=== PATIENT | female | born 1965 | race Caucasian/White ===

== ENCOUNTER 2016-11-07 08:11 | Inpatient (IN) | payer MEDICARE ==
[2016-11-07] MEDS ORDERED: Sodium Chloride 0.9% 1000 ML 1,000 ML IV STA (08:23)
[2016-11-07 08:36] LABS: BASOPHIL % 0.5 % (0.0-0.4); Granulocytes % 59.5 % (36.0-66.0); Lymphocytes % 27.1 % (24.0-44.0); Mean Cell Volume 88.6 fl (78-100); Mean Corpuscular Hemoglobin 29.2 pg (26-32); Mean Platelet Volume 9.4 fl (6-9.5); Monocytes % 8.9 % (0.0-12.0); Platelet Count 311 K/mm3 (150-450); Red Blood Count 4.72 M/mm3 (4.1-5.4); Red Cell Distribution Width 15.7 % (11.5-14.0); White Blood Count 7.4 K/mm3 (4.0-10.5)
[2016-11-07] MEDS ORDERED: Hydromorphone 1 mg/ml Ampule IV ONE ×2 (08:39→12:10)
[2016-11-07] MEDS ORDERED: Lactated Ringers 1,000 ML IV ONE (08:39)
[2016-11-07] MEDS ORDERED: BENADRYL 50 MG/ML IV ONE (08:39)
--- NOTE | 2016-11-07 08:54 | ERPHSYRPT ---
- History of Present Illness Time Seen by Provider: 11/07/16 08:23 Source: patient, EMS Patient Subjective Stated Complaint: pt arrived per amb for abd pain since friday, and states her mag levels where low,she has been getting mag riders,and fluids and kcl riders, vomited today Triage Nursing Assessment: pt alert, hyperventilating, abd soft, co pain to left side, chest clear, abd has colostomy and surapubic cath in place from a surgery that nicked her colon 4 years ago Physician History: CC: general weakness hX; 51 y/o patient of Dr Haji. She has hx of crohns disease, ostomy, suprapubic catheter. She has hx of electrolyte imbalance and takes infusions of fluids, K, Mag. She has recently been worse. She had abnl labs and has referrals to specialists. She had continued chronic abd pain. She has general weakness, muscle cramps and could not walk this AM due to weakness. Friend did not think she could get her to the car so called 911. No fever or chills. Allergies/Adverse Reactions: oxybutynin Allergy (Severe, Verified 11/07/16 08:24) pharyngeal swelling ampicillin Allergy (Mild, Verified 11/07/16 08:24) hives duloxetine [From Cymbalta] Allergy (Mild, Verified 11/07/16 08:24) nausea erythromycin base [Erythromycin Base] Allergy (Mild, Verified 11/07/16 08:24) Hives Home Medications: Hydrocodone/APAP 10/325 mg [[place] 10/325 MG Tablet] 1 tab PO 0500,1200, 1900 PRN 08/26/14 [History] Diphenoxylate HCl/Atropine [Lomotil] 2 udtab PO 0500,1200,1900 PRN [History] Furosemide 40 mg [Lasix 40 MG] 20 mg PO BID 11/15/15 [History] Paroxetine HCl [Paxil Cr] 25 mg PO 1200 11/15/15 [History] Paroxetine HCl [Paxil Cr] 37.5 mg PO 0500 11/15/15 [History] Diazepam [Valium] 10 mg PO TID 06/17/16 [History] Doxylamine Succinate [Unisom] 25 mg PO HS 06/17/16 [History] Promethazine HCl 25 mg [Phenergan 25 mg] 25 mg PO Q6HPRN PRN 06/17/16 [ History] Albuterol Sulfate [Ventolin Hfa] 90 mcg IH QID 08/06/16 [History] Cetirizine HCl [Zyrtec] 10 mg PO DAILY 08/06/16 [History] Fluticasone Propionate [Flovent Hfa] 110 mcg IH BID 08/06/16 [History] Spironolactone 200 mg PO DAILY 08/27/16 [History] Opium/Belladonna Alkaloids [Belladonna-Opium 16.2-30 Supp] 1 each RC DAILY 09/10 [History] Magnesium Oxide/Mag Aa Chelate [vh-Defu-Nrztxrm Tablet] 1 tab PO BID 10/21/16 [ History] Solifenacin Succinate [Vesicare] 5 mg DAILY 11/07/16 [History] Spironolactone 25 mg [Aldactone 25 MG] 25 mg DAILY 11/07/16 [History] Sulfamethoxazole/Trimethoprim [Bactrim Ds Tablet] 1 ea DAILY 11/07/16 [History] Hx Tetanus, Diphtheria Vaccination/Date Given: Yes (up to date) Hx Influenza Vaccination/Date Given: Yes Hx Pneumococcal Vaccination/Date Given: Yes - Review of Systems Constitutional: Fatigue, Malaise, Weakness, No Fever, No Chills Eyes: No Symptoms Ears, Nose, & Throat: No Symptoms Respiratory: No Cough, No Dyspnea Cardiac: No Chest Pain Abdominal/Gastrointestinal: Abdominal Pain (chronic), Nausea, Vomiting Genitourinary Symptoms: No Symptoms (suprapubic) Skin: No Rash Neurological: No Dizziness, No Focal Weakness, No Headache, No Parasthesia All Other Systems: Reviewed and Negative - Past Medical History Pertinent Past Medical History: Yes Neurological History: Migraines ENT History: No Pertinent History Cardiac History: No Pertinent History Respiratory History: No Pertinent History Endocrine Medical History: No Pertinent History Musculoskeletal History: No Pertinent History GI Medical History: Colitis, Hepatitis, Other History: Other Psycho-Social History: Anxiety, Depression Female Reproductive Disorders: No Pertinent History Other Medical History: short gut syndrome,chronic diarrhea,small bowel bacterial overgrowth. hx bowel obstruction 04/03 and others stated in the past - Past Surgical History Past Surgical History: Yes Neuro Surgical History: No Pertinent History Cardiac: No Pertinent History Respiratory: No Pertinent History Gastrointestinal: Colon Resection, Other Genitourinary: Other Musculoskeletal: No Pertinent History Female Surgical History: Hysterectomy Other Surgical History: 100cm small bowel removal and resection and colon and large bowel removed, bladder surgen with suprapubic catheter placed. stent in rt ureter ,bladder revision with larger stent - Social History Smoking Status: Current every day smoker How long have you smoked: 20 Exposure to second hand smoke: Yes Drug Use: none Patient Lives Alone: No (lives with fiance) - Female History Hx Last Menstrual Period: post Hx Now: No - Nursing Vital Signs Nursing Vital Signs: Initial Vital Signs Temperature 97.7 F Temperature Source Oral Pulse Rate 88 Respiratory Rate 18 Blood Pressure [Right Arm] 100/50 Pain Intensity 7 - Physical Exam General Appearance: alert Eye Exam: PERRL/EOMI, No scleral icterus Ears, Nose, Throat Exam: normal ENT inspection, dry mucous membranes Neck Exam: normal inspection, supple Respiratory Exam: normal breath sounds Cardiovascular Exam: regular rate/rhythm Gastrointestinal/Abdomen Exam: soft, other (diffuse discomfort, functioning ostomy, suprapubic cath, scars) Extremity Exam: normal inspection, normal range of motion, No calf tenderness, No pedal edema Neurologic Exam: alert, oriented x 3, cooperative, sensation nml, No motor deficits Skin Exam: warm, dry, No rash SpO2 Interpretation: normal SpO2: 97 Oxygen Delivery: Room Air - Course Nursing assessment & vital signs reviewed: Yes EKG Interpreted by Me: RATE (98), Sinus Tach, NORMAL AXIS, NORMAL INTERVALS ( QTc 432 QRS 340) Ordered Tests: Active Orders 24 hr Category Date Time Status Cath for Specimen-Straight STAT Care 11/07/16 08:23 Active EKG-ER Only STAT Care 11/07/16 08:40 Active IV Insertion STAT Care 11/07/16 08:23 Active GALLBLADDER [US] Stat Exams 11/07/16 09:11 Completed OBSTR/ACUTE ABDOMEN SERIES Stat Exams 11/07/16 08:57 Completed CBC W DIFF Stat Lab 11/07/16 08:30 Completed CK-Creatinine Phosphokinase Stat Lab 11/07/16 08:30 Completed CMP Stat Lab 11/07/16 08:30 Completed CULTURE,URINE Stat Lab 11/07/16 08:23 Ordered LIPASE Stat Lab 11/07/16 08:30 Completed Lactic Acid Urgent Lab 11/07/16 08:23 Completed MAGNESIUM Stat Lab 11/07/16 08:39 Completed UA W/ MICROSCOPIC Stat Lab 11/07/16 08:45 Completed Medication Summary Discontinued Medications Generic Name Dose Route Start Last Admin Trade Name Freq PRN Reason Stop Dose Admin Diphenhydramine HCl 25 mg 11/07/16 08:39 11/07/16 09:19 Benadryl 50 Mg/Ml IV 11/07/16 08:40 25 mg STAT ONE Administration Diphenhydramine HCl Confirm 11/07/16 09:15 Benadryl 50 Mg/Ml Administered 11/07/16 09:16 Dose 50 mg .ROUTE .STK-MED ONE Hydromorphone HCl 1 mg 11/07/16 08:39 11/07/16 09:20 Hydromorphone 1 Mg/Ml Ampule IV 11/07/16 08:40 1 mg STAT ONE Administration Hydromorphone HCl Confirm 11/07/16 09:16 Hydromorphone 1 Mg/Ml Ampule Administered 11/07/16 09:17 Dose 1 mg .ROUTE .STK-MED ONE Hydromorphone HCl 1 mg 11/07/16 12:10 Hydromorphone 1 Mg/Ml Ampule IV 11/07/16 12:11 STAT ONE Sodium Chloride 1,000 mls @ 999 mls/hr 11/07/16 08:23 11/07/16 09:19 Sodium Chloride 0.9% 1000 Ml IV 11/07/16 09:23 999 mls/hr .Q1H1M STA Administration Lactated Ringer's 1,000 mls @ 999 mls/hr 11/07/16 08:39 11/07/16 09:20 Lactated Ringers IV 11/07/16 09:39 999 mls/hr .Q1H1M ONE Administration Sodium Chloride Confirm 11/07/16 09:16 Sodium Chloride 0.9% 1000 Ml Administered 11/07/16 09:17 Dose 1,000 mls @ ud .ROUTE .STK-MED ONE Lactated Ringer's Confirm 11/07/16 09:16 Lactated Ringers Administered 11/07/16 09:17 Dose 1,000 mls @ ud IV .STK-MED ONE Lab/Rad Data: Laboratory Result Diagrams 11/07/16 08:30 11/07/16 08:30 Laboratory Results 11/07/16 11/07/16 11/07/16 Range/Units 08:45 08:39 08:30 WBC (4.0-10.5) K/mm3 RBC (4.1-5.4) M/mm3 Hgb (12.0-16.0) gm/dl Hct (35-47) % MCV (78-100) fl MCH (26-32) pg MCHC (32-36) g/dl RDW (11.5-14.0) % Plt Count (150-450) K/mm3 MPV (6-9.5) fl Gran % (36.0-66.0) % Lymphocytes % (24.0-44.0) % Monocytes % (0.0-12.0) % Eosinophils % (0.00-5.0) % Basophils % (0.0-0.4) % Basophils # (0-0.4) Sodium (136-145) mEq/L Potassium (3.5-5.1) mEq/L Chloride (98-107) mEq/L Carbon Dioxide (21-32) mEq/L Anion Gap (5-15) MEQ/L BUN (9-20) mg/dL Creatinine (0.55-1.30) mg/dl Estimated GFR ML/MIN Glucose (70-110) MG/DL Lactic Acid (0.4-2.0) Calcium (8.5-10.1) mg/dL Magnesium 1.9 (1.8-2.4) mg/dL Total Bilirubin (0.2-1.0) mg/dL AST (15-37) U/L ALT (12-78) U/L Alkaline Phosphatase (46-116) U/L Creatine Kinase 75 (26-192) U/L Serum Total Protein (6.4-8.2) gm/dL Albumin (3.4-5.0) g/dL Lipase (73-393) U/L Ur Collection Type CLEAN CATCH Urine Color YELLOW (YELLOW) Urine Appearance HAZY (CLEAR) Urine pH 5.0 (5-6) Ur Specific [place] 1.020 (1.005-1.025) Urine Protein 30 (Negative) Urine Glucose (UA) NEGATIVE (NEGATIVE) mg/dL Urine Ketones NEGATIVE (NEGATIVE) Urine Nitrite NEGATIVE (NEGATIVE) Urine Bilirubin NEGATIVE (NEGATIVE) Urine Urobilinogen 0.2 (0-1) mg/dL Urine WBC (Auto) SMALL (NEGATIVE) Urine RBC (Auto) SMALL (0-5) Gregg/ul Urine Microscopic RBC 5-10 (0-2) /HPF Urine Microscopic WBC 15-25 (0-5) /HPF Ur Epithelial Cells FEW (FEW) /HPF Urine Bacteria FEW (NEGATIVE) /HPF Hyaline Casts 2-5 (0-2) /LPF Specimen Received 11/07/16 0845 11/07/16 11/07/16 11/07/16 Range/Units 08:30 08:30 08:23 WBC 7.4 (4.0-10.5) K/mm3 RBC 4.72 (4.1-5.4) M/mm3 Hgb 13.8 (12.0-16.0) gm/dl Hct 41.8 (35-47) % MCV 88.6 (78-100) fl MCH 29.2 (26-32) pg MCHC 33.0 (32-36) g/dl RDW 15.7 H (11.5-14.0) % Plt Count 311 (150-450) K/mm3 MPV 9.4 (6-9.5) fl Gran % 59.5 (36.0-66.0) % Lymphocytes % 27.1 (24.0-44.0) % Monocytes % 8.9 (0.0-12.0) % Eosinophils % 4.0 (0.00-5.0) % Basophils % 0.5 (0.0-0.4) % Basophils # 0.04 (0-0.4) Sodium 135 L (136-145) mEq/L Potassium 4.6 (3.5-5.1) mEq/L Chloride 95 L (98-107) mEq/L Carbon Dioxide 26.5 (21-32) mEq/L Anion Gap 18.5 H (5-15) MEQ/L BUN 33 H (9-20) mg/dL Creatinine 1.92 H (0.55-1.30) mg/dl Estimated GFR 29 ML/MIN Glucose 104 (70-110) MG/DL Lactic Acid 2.2 H (0.4-2.0) Calcium 9.7 (8.5-10.1) mg/dL Magnesium (1.8-2.4) mg/dL Total Bilirubin 0.6 (0.2-1.0) mg/dL AST 91 H (15-37) U/L ALT 131 H (12-78) U/L Alkaline Phosphatase 221 H (46-116) U/L Creatine Kinase (26-192) U/L Serum Total Protein 9.2 H (6.4-8.2) gm/dL Albumin 4.3 (3.4-5.0) g/dL Lipase 411 H (73-393) U/L Ur Collection Type Urine Color (YELLOW) Urine Appearance (CLEAR) Urine pH (5-6) Ur Specific [place] (1.005-1.025) Urine Protein (Negative) Urine Glucose (UA) (NEGATIVE) mg/dL Urine Ketones (NEGATIVE) Urine Nitrite (NEGATIVE) Urine Bilirubin (NEGATIVE) Urine Urobilinogen (0-1) mg/dL Urine WBC (Auto) (NEGATIVE) Urine RBC (Auto) (0-5) Gregg/ul Urine Microscopic RBC (0-2) /HPF Urine Microscopic WBC (0-5) /HPF Ur Epithelial Cells (FEW) /HPF Urine Bacteria (NEGATIVE) /HPF Hyaline Casts (0-2) /LPF Specimen Received - Progress Progress Note: 11/07/16 10:46 AAS and RUQ sonogram unremarkable. She has been medicated. She feels too weak to walk well. Called Dr Haji and she advised pt needs GI and nephrology which are not available here and attempt transfer to [facility]. Pt agrees. 11/07/16 12:[address] Coty Carty and Dr Tin BLAKE at [facility]. They do not feel pt would benefit from transfer to [facility]. Called Dr Haji who will place in obs, IVf, and consult Dr Orourke. Discussed with : Adithya Will see patient in: hospital (observation) Counseled pt/family regarding: lab results, diagnosis, need for follow-up, rad results - Departure Time of Disposition: 12:21 Departure Disposition: Observation Clinical Impression: Dehydration, Crohns disease, Chronic abdominal pain, Generalized weakness Condition: Stable Critical Care Time: No Referrals: JOSE HAJI [Primary Care Provider] -
[2016-11-07 08:58] LABS: ALBUMIN 4.3 g/dL (3.4-5.0); ANION GAP 18.5 MEQ/L (5-15); BILIRUBIN,TOTAL 0.6 mg/dL (0.2-1.0); Carbon Dioxide 26.5 mEq/L (21-32); Potassium 4.6 mEq/L (3.5-5.1); Total Protein 9.2 gm/dL (6.4-8.2)
[2016-11-07 09:11] LABS: COMPLETE URINE MICROSCOPIC? YES; Collection Type CLEAN CATCH
[2016-11-07] MEDS ORDERED: BENADRYL 50 MG/ML ONE (09:15)
[2016-11-07 09:16] LABS: Bacteria FEW /HPF (NEGATIVE); Epithelial Cells FEW /HPF (FEW); WBC 15-25 /HPF (0-5)
[2016-11-07] MEDS ORDERED: Lactated Ringers 0 ML IV ONE (09:16)
[2016-11-07] MEDS ORDERED: Sodium Chloride 0.9% 1000 ML 1,000 ML ONE (09:16)
[2016-11-07] MEDS ORDERED: Hydromorphone 1 mg/ml Ampule ONE ×2 (09:16→12:26)
--- NOTE | 2016-11-07 09:25 | XRAY ---
Indication: Abdominal pain. Comparison: June 14, 2016. 2 views of the abdomen again nonacute and nonobstructed with cholecystectomy clips, right-sided ostomy, and a suprapubic catheter. No free air. Remaining solid organs and osseous structures unremarkable. Single PA chest demonstrates normal heart, lungs, and bony thorax with right-sided Port-A-Cath. Impression: Stable nonacute nonobstructed abdomen. Normal 1 view chest.
--- NOTE | 2016-11-07 10:04 | XRAY ---
Indication: Abdominal pain. Elevated transaminase. Cholecystectomy. Two-dimensional right upper quadrant abdominal sonogram performed. Comparison: None Gallbladder surgically absent. No suspicious mass or fluid collection in the gallbladder fossa. Common bile duct measures 7.7 mm, within normal limits. No intrahepatic biliary distention. Mild fatty echogenic liver without focal solid/cystic mass or ascites. Remaining visualized portions of the pancreas and right kidney appear sonographically normal. Right kidney measures 7.9 cm in length with normal color flow. Impression: Cholecystectomy and fatty liver in a otherwise negative right upper quadrant sonogram.
[2016-11-07] MEDS: Dextrose 5%-Lr IV Solution 1000 ML 1,000 ML IV SCH ×2 (13:10→21:31)
[2016-11-07] MEDS ORDERED: Norco 10/325 MG Tablet PO PRN (16:25)
[2016-11-07] MEDS: DILAUDID 2 MG INJECTION IV PRN ×2 (16:44→21:15)
[2016-11-07] MEDS ORDERED: MEDICATION INTERVENTION MC PRN ×2 (16:52→16:56)
[2016-11-07] MEDS ORDERED: Ventolin Hfa MDI IH SCH (17:00)
[2016-11-07] MEDS: Valium 5 MG PO SCH ×2 (18:02→23:33)
[2016-11-07] MEDS: PROVENTIL COMMON CANISTER IH SCH (19:53)
[2016-11-07] MEDS: Flovent 110 Mcg COMMON CANISTER IH SCH (19:54)
[2016-11-07] MEDS: BENADRYL 25 MG CAPSULE PO SCH (21:39)
[2016-11-07] MEDS: MAG-OX 400 PO SCH (21:39)
[2016-11-07] MEDS: Lactated Ringers 1,000 ML IV SCH (21:47)
[2016-11-07] MEDS ORDERED: DOXYLAMINE SUCCINATE 25 MG PO SCH (22:00)
[2016-11-07] MEDS ORDERED: NON-FORMULARY ITEM (Diazepam [Valium] 10 MG) PO SCH (22:00)
[2016-11-07] MEDS ORDERED: MAG AA CHELATE PO SCH (22:00)
[2016-11-07] MEDS ORDERED: FLUTICASONE PROPIONATE 110 MCG IH SCH (22:00)
[2016-11-07] MEDS ORDERED: MAGNESIUM OXIDE PO SCH (22:00)
[2016-11-08] MEDS: DILAUDID 2 MG INJECTION IV PRN ×5 (01:26→18:48)
[2016-11-08] MEDS: Lactated Ringers 1,000 ML IV SCH ×4 (02:37→18:32)
[2016-11-08] MEDS ORDERED: PAROXETINE HCL 37.5 MG PO SCH (05:00)
[2016-11-08 05:20] LABS: BASOPHIL % 0.4 % (0.0-0.4); Eosinophil % 4.3 % (0.00-5.0); Granulocytes % 47.6 % (36.0-66.0); Lymphocytes % 40.7 % (24.0-44.0); Mean Cell Volume 91.8 fl (78-100); Mean Platelet Volume 9.3 fl (6-9.5); Platelet Count 233 K/mm3 (150-450); Red Blood Count 3.52 M/mm3 (4.1-5.4); Red Cell Distribution Width 15.6 % (11.5-14.0); White Blood Count 4.9 K/mm3 (4.0-10.5)
[2016-11-08 05:24] LABS: Mean Corpuscular Hemoglobin 29.2 pg (26-32)
[2016-11-08 05:52] LABS: ALBUMIN 3.2 g/dL (3.4-5.0); ANION GAP 9.6 MEQ/L (5-15); BILIRUBIN,TOTAL 0.3 mg/dL (0.2-1.0); Carbon Dioxide 29.4 mEq/L (21-32); Potassium 4.1 mEq/L (3.5-5.1); Total Protein 6.8 gm/dL (6.4-8.2)
[2016-11-08] MEDS: Flovent 110 Mcg COMMON CANISTER IH SCH ×2 (07:00→19:18)
[2016-11-08] MEDS: PROVENTIL COMMON CANISTER IH SCH ×4 (07:00→19:18)
[2016-11-08] MEDS: Aldactone 25 MG PO SCH (08:09)
[2016-11-08] MEDS: Norco 10/325 MG Tablet PO PRN (08:10)
[2016-11-08] MEDS: MAG-OX 400 PO SCH ×2 (08:10→21:39)
[2016-11-08] MEDS: Valium 5 MG PO SCH ×3 (08:10→22:39)
[2016-11-08] MEDS: Paxil 12.5MG CR PO SCH ×2 (08:11→11:14)
[2016-11-08] MEDS: CLARITIN 10 MG PO SCH (08:11)
--- NOTE | 2016-11-08 09:08 | PCM.HP ---
History of Present Illness - Chief Complaint Chief Complaint: dehydration History of Present Illness: is a 51 year old female pt of mine from [facility] with a complicated medical history, admitted through the ER last night with weakness and decreased renal function. This morning her creatinine is decreased. She gained 6 lb overnight with her lasix being held. C/o abd distention. Regarding her medical hx, she had a colon resection with most of the small bowel removed about 2 years ago due to bowel obstruction and colitis. The bladder was damaged during a surgery and she had to have a suprapubic catheter placed (approx 1 yr ago). She was seeing GI surgeon Dr. Hinson in [place] who had been ordering twice weekly labs on her. For some reason, his office stopped following up on the labs and it came to my attention earlier this week that no one was following those. I had her come in on Friday and set her up with nephrology and GI outpatient in the [facility] (Dr. Orourke and Dr. Castle). She was started on po magnesium at a low dose (a high po dose gave her increased output through the ostomy). She became weak and had some vomiting yesterday so came to ER for evaluation. - Review of Systems Constitutional: No Fever Abdominal/Gastrointestinal: Abdominal Pain, Vomiting, Diarrhea, Appetite Changes Genitourinary Symptoms: Other (frequent utis and pain at catheter site) Psychological: Anxiety All Other Systems: Reviewed and Negative Medications & Allergies Home Medications: Home Medication List Hydrocodone/APAP 10/325 mg [[place] 10/325 MG Tablet] 1 tab PO 0500,1200, 1900 PRN 08/26/14 [History Confirmed 11/07/16] Diphenoxylate HCl/Atropine [Lomotil] 2 udtab PO 0500,1200,1900 PRN [History Confirmed 11/07/16] Furosemide 40 mg [Lasix 40 MG] 20 mg PO BID 11/15/15 [History Confirmed ] Paroxetine HCl [Paxil Cr] 25 mg PO 1200 11/15/15 [History Confirmed 11/07/16] Paroxetine HCl [Paxil Cr] 37.5 mg PO 0500 11/15/15 [History Confirmed 11/07/16] Diazepam [Valium] 10 mg PO TID 06/17/16 [History Confirmed 11/07/16] Doxylamine Succinate [Unisom] 25 mg PO HS 06/17/16 [History Confirmed 11/07/16] Promethazine HCl 25 mg [Phenergan 25 mg] 25 mg PO Q6HPRN PRN 06/17/16 [ History Confirmed 11/07/16] Albuterol Sulfate [Ventolin Hfa] 90 mcg IH QID 08/06/16 [History Confirmed 11/07] Cetirizine HCl [Zyrtec] 10 mg PO DAILY 08/06/16 [History Confirmed 11/07/16] Fluticasone Propionate [Flovent Hfa] 110 mcg IH BID 08/06/16 [History Confirmed 11/07/16] Spironolactone 200 mg PO DAILY 08/27/16 [History Confirmed 11/07/16] Opium/Belladonna Alkaloids [Belladonna-Opium 16.2-30 Supp] 1 each RC DAILY 09/10 [History Confirmed 11/07/16] Magnesium Oxide/Mag Aa Chelate [zn-Xtyy-Wyigdly Tablet] 1 tab PO BID 10/21/16 [ History Confirmed 11/07/16] Phentermine HCl [Adipex-P] 37.5 mg PO DAILY 11/07/16 [History Confirmed 11/07/16 ] Solifenacin Succinate [Vesicare] 5 mg DAILY 11/07/16 [History Confirmed 11/07/16 ] Spironolactone 25 mg [Aldactone 25 MG] 25 mg DAILY 11/07/16 [History Confirmed 11/07/16] Sulfamethoxazole/Trimethoprim [Bactrim Ds Tablet] 1 ea DAILY 11/07/16 [History Confirmed 11/07/16] Allergies/Adverse Reactions: Allergies Allergy/AdvReac Type Severity Reaction Status Date / Time oxybutynin Allergy Severe Verified 11/07/16 08:24 ampicillin Allergy Mild Verified 11/07/16 08:24 duloxetine [From Cymbalta] Allergy Mild Verified 11/07/16 08:24 erythromycin base Allergy Mild Verified 11/07/16 08:24 [Erythromycin Base] - Past Medical History Past Medical History: Yes Neurological History: Migraines ENT History: No Pertinent History Cardiac History: No Pertinent History Respiratory History: No Pertinent History Endocrine Medical History: No Pertinent History Musculoskelatal History: No Pertinent History GI Medical History: Colitis, Hepatitis, Other History: Other Pyscho-Social History: Anxiety, Depression Reproductive Disorders: No Pertinent History Comment: short gut syndrome,chronic diarrhea,small bowel bacterial overgrowth. hx bowel obstruction 04/03 and others stated in the past. stage 2 kidney disease - Female History Hx Last Menstrual Period: post Are you now?: No - Past Surgical History Past Surgical History: Yes Neuro Surgical History: No Pertinent History Cardiac History: No Pertinent History Respiratory Surgery: No Pertinent History GI Surgical History: Colon Resection, Other Genitourinary Surgical Hx: Other Musculskeletal Surgical Hx: No Pertinent History Female Surgical History: Hysterectomy Other Surgical History: 100cm small bowel removal and resection and colon and large bowel removed, bladder surgen with suprapubic catheter placed. stent in rt ureter ,bladder revision with larger stent - Social History Smoking Status: Current every day smoker How long have you smoked: 20 Exposure to second hand smoke: Yes Alcohol: None Drug Use: none - Physical Exam Vital Signs: Vital Signs - 24 hr Temp Pulse Resp BP Pulse Ox 11/08/16 07:07 97.8 F 70 20 98/52 97 11/08/16 07:03 86 18 97 11/08/16 04:00 98.0 F 79 15 91/55 95 11/07/16 23:54 98.0 F 91 H 16 110/59 96 11/07/16 21:16 92 H 20 95 11/07/16 20:00 97.8 F 96 H 18 128/75 94 L 11/07/16 17:05 97.6 F 92 H 18 106/70 96 11/07/16 14:01 97.8 F 100 H 20 107/76 98 11/07/16 13:04 97.8 F 100 H 20 107/76 98 11/07/16 12:21 97 11/07/16 11:50 88 18 100/50 97 11/07/16 11:40 88 18 100/65 98 11/07/16 10:50 91 H 18 104/60 97 11/07/16 10:40 97 H 18 104/60 97 11/07/16 09:52 95 H 16 96/68 93 L General Appearance: no apparent distress Neurologic Exam: alert, oriented x 3, cooperative Eye Exam: eyes nml inspection Neck Exam: normal inspection, non-tender, No lymphadenopathy Respiratory Exam: normal breath sounds, lungs clear, No crackles/rales, No rhonchi, No wheezing Cardiovascular Exam: regular rate/rhythm, normal heart sounds, No murmur Gastrointestinal/Abdomen Exam: soft, other (ostomy bag midline lower abd, with suprapubic catheter inferior to this. some yellow exudate but no erythema at catheter site.) Back Exam: normal inspection Extremity Exam: pedal edema (trace LE edema bilat), swelling (generalized UE bilat) Skin Exam: normal color, warm, dry Results - Labs Lab/Micro Results: Lab Results-Last 24 Hours 11/07/16 11/07/16 11/07/16 Range/Units 19:45 19:45 19:47 WBC (4.0-10.5) K/mm3 RBC (4.1-5.4) M/mm3 Hgb (12.0-16.0) gm/dl Hct (35-47) % MCV (78-100) fl MCH (26-32) pg MCHC (32-36) g/dl RDW (11.5-14.0) % Plt Count (150-450) K/mm3 MPV (6-9.5) fl Gran % (36.0-66.0) % Lymphocytes % (24.0-44.0) % Monocytes % (0.0-12.0) % Eosinophils % (0.00-5.0) % Basophils % (0.0-0.4) % Basophils # (0-0.4) Sodium (136-145) mEq/L Potassium (3.5-5.1) mEq/L Chloride (98-107) mEq/L Carbon Dioxide (21-32) mEq/L Anion Gap (5-15) MEQ/L BUN (9-20) mg/dL Creatinine (0.55-1.30) mg/dl Estimated GFR ML/MIN Glucose (70-110) MG/DL Calcium (8.5-10.1) mg/dL Total Bilirubin (0.2-1.0) mg/dL AST (15-37) U/L ALT (12-78) U/L Alkaline Phosphatase (46-116) U/L Serum Total Protein (6.4-8.2) gm/dL Albumin (3.4-5.0) g/dL Ur Random Creatinine 173.96 H (30-125) MG/DL Urine Sodium 13.8 MMOL Urine Potassium 91.6 (25-125) MM/24HR 11/08/16 11/08/16 Range/Units 05:10 05:10 WBC 4.9 (4.0-10.5) K/mm3 RBC 3.52 L (4.1-5.4) M/mm3 Hgb 10.3 L (12.0-16.0) gm/dl Hct 32.3 L (35-47) % MCV 91.8 (78-100) fl MCH 29.2 (26-32) pg MCHC 31.9 L (32-36) g/dl RDW 15.6 H (11.5-14.0) % Plt Count 233 (150-450) K/mm3 MPV 9.3 (6-9.5) fl Gran % 47.6 (36.0-66.0) % Lymphocytes % 40.7 (24.0-44.0) % Monocytes % 7.0 (0.0-12.0) % Eosinophils % 4.3 (0.00-5.0) % Basophils % 0.4 (0.0-0.4) % Basophils # 0.02 (0-0.4) Sodium 136 (136-145) mEq/L Potassium 4.1 (3.5-5.1) mEq/L Chloride 101 (98-107) mEq/L Carbon Dioxide 29.4 (21-32) mEq/L Anion Gap 9.6 (5-15) MEQ/L BUN 22 H (9-20) mg/dL Creatinine 1.24 (0.55-1.30) mg/dl Estimated GFR 48 ML/MIN Glucose 85 (70-110) MG/DL Calcium 8.6 (8.5-10.1) mg/dL Total Bilirubin 0.3 (0.2-1.0) mg/dL AST 53 H (15-37) U/L ALT 88 H (12-78) U/L Alkaline Phosphatase 154 H (46-116) U/L Serum Total Protein 6.8 (6.4-8.2) gm/dL Albumin 3.2 L (3.4-5.0) g/dL Ur Random Creatinine (30-125) MG/DL Urine Sodium MMOL Urine Potassium (25-125) MM/24HR - Radiology Impressions Radiology Exams & Impressions: Radiology Procedures Category Date Time Status Ultrasound Kidney [KIDNEY] [US] Routine Exams 11/08/16 08:00 Ordered - Other Procedures and Tests Respiratory Therapy 11/07/16 19:00 Respiratory MDI BID Respiratory MDI QID Assessment/Plan (1) Generalized weakness Current Visit: Yes Status: Acute Assessment & Plan: persistent but with some improvement. Code(s): R53.1 - WEAKNESS (2) Chronic abdominal pain Current Visit: Yes Status: Acute Assessment & Plan: if not transferred out, will have her f/u with local GI (Dr. Castle) likely next week. Code(s): R10.9 - UNSPECIFIED ABDOMINAL PAIN; G89.29 - OTHER CHRONIC PAIN (3) Dehydration Current Visit: Yes Status: Acute Assessment & Plan: improved. Code(s): E86.0 - DEHYDRATION (4) Renal insufficiency Current Visit: No Status: Resolved Assessment & Plan: Much improved. Dr. Orourke was consulted and saw the patient last night (she was set up to see him outpatient for consult already). I will discuss with him today as he had mentioned to the patient possibility of transferring her to [place].
--- NOTE | 2016-11-08 09:30 | XRAY ---
Indication: Assess renal echogenicity. Two-dimensional renal ultrasound performed. Comparison: June 17, 2016. Both kidneys normal in reniform shape with normal color perfusion. Right kidney measures 10.0 x 3.0 x 4.1 cm and the left measures 9.3 x 3.6 x 4.1 cm. No suspicious solid/cystic renal mass or hydronephrosis. Cortical medullary differentiation preserved without cortical thinning. Images of the urinary bladder again empty with catheter balloon tip in the lumen. Impression: Stable normal renal sonogram.
[2016-11-08] MEDS ORDERED: BELLADONNA ALKALOIDS RC SCH (10:00)
[2016-11-08] MEDS ORDERED: NON-FORMULARY ITEM (Cetirizine Hcl [Zyrtec] 10 MG) PO SCH (10:00)
[2016-11-08] MEDS ORDERED: SPIRONOLACTONE 200 MG PO SCH (10:00)
[2016-11-08] MEDS ORDERED: OPIUM RC SCH (10:00)
[2016-11-08] MEDS: BACTRIM DS TABLET PO SCH (10:21)
[2016-11-08] MEDS ORDERED: PAROXETINE HCL 25 MG PO SCH (12:00)
[2016-11-08] MEDS: LYRICA 150MG PO SCH ×2 (12:11→21:39)
[2016-11-08] MEDS ORDERED: Phenergan 25 MG INJ IV PRN (14:29)
[2016-11-08] MEDS: Zofran 4 MG/2 ML VIAL IV PRN (14:53)
[2016-11-08] MEDS: Lomotil PO PRN (15:25)
[2016-11-08] MEDS ORDERED: Lasix 20 MG/2 ML IV ONE (15:30)
[2016-11-08] MEDS: BENADRYL 25 MG CAPSULE PO SCH (21:39)
[2016-11-09] MEDS: DILAUDID 2 MG INJECTION IV PRN ×5 (04:17→22:00)
[2016-11-09] MEDS: Lactated Ringers 1,000 ML IV SCH ×5 (04:20→23:29)
[2016-11-09 05:49] LABS: Carbon Dioxide 28.5 mEq/L (21-32); MAGNESIUM 1.5 mg/dL (1.8-2.4); Potassium 4.1 mEq/L (3.5-5.1)
[2016-11-09] MEDS: PROVENTIL COMMON CANISTER IH SCH ×4 (07:39→19:24)
[2016-11-09] MEDS: Flovent 110 Mcg COMMON CANISTER IH SCH ×2 (07:39→19:25)
[2016-11-09] MEDS: Zofran 4 MG/2 ML VIAL IV PRN (08:19)
[2016-11-09] MEDS: Aldactone 25 MG PO SCH (09:36)
[2016-11-09] MEDS: Lasix 40 MG PO SCH (09:38)
[2016-11-09] MEDS: BACTRIM DS TABLET PO SCH (09:38)
[2016-11-09] MEDS: MAG-OX 400 PO SCH ×2 (09:38→21:05)
[2016-11-09] MEDS: LYRICA 150MG PO SCH ×2 (09:38→21:05)
[2016-11-09] MEDS: CLARITIN 10 MG PO SCH (09:38)
[2016-11-09] MEDS: Valium 5 MG PO SCH ×3 (09:39→21:05)
[2016-11-09] MEDS: Paxil 12.5MG CR PO SCH ×2 (09:39→11:56)
--- NOTE | 2016-11-09 10:43 | PCM.NOTE ---
Date and Time: 11/09/16 1038 Subjective Assessment: Patient reports she continues to feel very swollen. She is on a bland diet so she is not getting much protein. She is tearful when talking about the swelling. She reports she continues to have output from her ostomy and she just had her suprapubic catheter changed recently. - Review of Systems Constitutional: Other (generalized swelling) Respiratory: No Symptoms Cardiac: No Symptoms Abdominal/Gastrointestinal: Abdominal Pain, No Nausea, No Vomiting Genitourinary Symptoms: No Symptoms Musculoskeletal: No Symptoms Skin: No Symptoms Psychological: Anxiety Objective Exam General Appearance: other (tearful at times, at bedside) Neurologic Exam: alert, cooperative Skin Exam: normal color, warm, dry, No rash Respiratory Exam: normal breath sounds, lungs clear, airway intact, No respiratory distress Cardiovascular Exam: regular rate/rhythm, normal heart sounds, No murmur, No friction rub, No gallop Gastrointestinal/Abdomen Exam: soft, other (ostomy in place, suprapubic catheter in place, mild distension, soft, normal bowel sounds) Extremity Exam: pedal edema, other (hands slightly swollen) OBJECTIVE DATA Vital Signs: Vital Signs - 24 hr Temp Pulse Resp BP Pulse Ox 11/09/16 07:51 98.7 F 85 17 91/53 91 L 11/09/16 07:39 81 16 96 11/09/16 04:00 98.5 F 88 14 95/54 95 11/09/16 00:00 98.7 F 76 14 89/51 93 L 11/08/16 20:00 98.1 F 85 15 94/51 96 11/08/16 19:21 82 18 97 11/08/16 16:00 98.2 F 85 19 91/50 95 11/08/16 15:33 86 16 97 11/08/16 12:00 97.7 F 85 18 98/50 95 11/08/16 10:51 88 18 97 Pain Assessment - Last Documented Pain Intensity 5 Pain Scale Used 0-10 Pain Scale Intake and Output: Intake & Output 11/07/16 11/08/16 11/09/16 11/10/16 06:59 06:59 06:59 06:59 Intake Total 1478 Output Total 3150 Balance -1672 Lab Results: Lab Results-Last 24 Hours 11/09/16 Range/Units 05:10 Sodium 139 (136-145) mEq/L Potassium 4.1 (3.5-5.1) mEq/L Chloride 104 (98-107) mEq/L Carbon Dioxide 28.5 (21-32) mEq/L Anion Gap 11.0 (5-15) MEQ/L BUN 15 (9-20) mg/dL Creatinine 1.26 (0.55-1.30) mg/dl Estimated GFR 48 ML/MIN Glucose 92 (70-110) MG/DL Calcium 8.3 L (8.5-10.1) mg/dL Magnesium 1.5 L (1.8-2.4) mg/dL Assessment/Plan (1) Acute renal failure Current Visit: Yes Status: Acute Assessment & Plan: Improved with IV fluids. (2) Chronic kidney disease (CKD) stage G3a/A1, moderately decreased glomerular filtration rate (GFR) between 45-59 mL/min/1.73 square meter and albuminuria creatinine ratio less than 30 mg/g Current Visit: Yes Status: Acute Assessment & Plan: Plan for her to follow up with the account executive software sales on Friday. Continue current IV fluid. Renal function has improved with IV fluids. Code(s): N18.3 - CHRONIC KIDNEY DISEASE, STAGE 3 (MODERATE) (3) Hypomagnesemia Current Visit: No Status: Resolved Assessment & Plan: Will give magnesium sulfate 2 G IV once and continue oral supplementation too. Code(s): E83.42 - HYPOMAGNESEMIA (4) Chronic abdominal pain Current Visit: Yes Status: Acute Assessment & Plan: Continue current treatment. Code(s): R10.9 - UNSPECIFIED ABDOMINAL PAIN; G89.29 - OTHER CHRONIC PAIN
[2016-11-09] MEDS ORDERED: Magnesium Sulfate 1 GM/2 ML VIAL IV ONE (11:00)
[2016-11-09] MEDS: Magnesium 1 Gm / 100 Ml D5W*** 100 ML IV SCH ×2 (11:07→12:20)
--- NOTE | 2016-11-09 15:12 | CONS ---
REASON FOR CONSULTATION: Acute kidney injury. HISTORY OF PRESENT ILLNESS: Ms. Woods is a 51 year-old female who was admitted to [facility] for the complaint of abdominal pain and increasing swelling. She apparently had a subtotal colectomy done at [facility] in 2014, and had an ileostomy tube placed and also had a suprapubic catheter placed. She only had 120 cm of bowel left, and ever since she has been having a large output by ostomy, and currently getting maintenance IV fluid therapy at home. She stated that her fluid therapy is being managed by the physician at the who reviews her labs and prescribes her the intravenous fluid therapy to being infused at home. She stated that prior to coming into the hospital she had not been doing infusion therapy because she was supposed to have lab work done and was advised not to have IV fluid therapy. She was found to have a creatinine of 1.9. She had some baseline CKDs stage 2, however, baseline creatinine around 1.2 with GFR around 60 to 65. She had suffered multiple episodes of CARRIE in the past and also had electrolyte abnormalities, hypokalemia and hypomagnesemia secondary to short gut syndrome. She has 1800 cc of ostomy output, was also advised to take Lomotil and Imodium to slow down the ostomy, however, she stated that she has not taken it in the past because that made her constipated and she was not able to pass the stool via the ostomy tube. She is also expressing concerns regarding fluid overload with the maintenance fluid therapy. PAST MEDICAL HISTORY: Significant for colon resection, chronic high ostomy output, hypokalemia, hypomagnesemia, CKD stage 2. Anxiety and depression. PAST SURGICAL HISTORY: Tubal ligation, hysterectomy, adhesion lysis, and colectomy. SOCIAL HISTORY: She has denied any smoking or alcohol use. FAMILY HISTORY: No significant family history of renal disease. MEDICATIONS: Home medications reviewed. ALLERGIES: As per the chart. REVIEW OF SYSTEMS: All pertinents in review of systems reviewed. Negative except as mentioned in the HPI. PHYSICAL EXAMINATION: VITAL SIGNS: Reviewed and stable. HEENT: Head is atraumatic and normocephalic. Pupils are round and equal. Extraocular muscles intact. No conjunctivae. Anicteric sclerae. Throat mucosa appears to be dry. NECK: No JVD, thyromegaly. CARDIOVASCULAR: S1, S2 normal. No murmurs, gallops or rubs. CHEST: Clear to auscultation, no apparent wheezes or crackles. ABDOMEN: A surgical scar noted in the abdomen and ostomy noted. And also suprapubic catheter with the catheter bag noted. Bowel sounds are present. Abdomen is mildly tender on palpation. EXTREMITIES: Evidence of trace edema noted on lower and upper extremities. SKIN: Skin is warm, dry and intact. No evidence of rash. NEURO: No evidence of focal neurological deficits. LABORATORY INVESTIGATIONS: Laboratory data from [facility] were reviewed. Creatinine is up to 1.9. Prior lab values also reviewed. The prior lab review had been in the range of 1.3 to 1.2. She had been getting frequent labs since August of this year. ASSESSMENT AND PLAN: Ms. Woods is a 51 year-old female with a significant past medical history of short gut syndrome, had high ostomy output, presented with abdominal pain, was found to have acute kidney injury and chronic kidney disease with a creatinine of 1.9. 1. Acute kidney injury: This is likely secondary to high ostomy output, dehydration and prerenal azotemia. I would like to obtain urine studies, urine sodium and urine creatinine to assess the true volume status. It is my suspicion that she had dehydration secondary to high ostomy output and I would like to increase the current IV fluid back to 200 cc per hour. I would also like to do a CC to see the placement. As of now her ostomy output is around 200 cc per hour, the last 6 hours output is around 1200. If the ostomy output slows down, I would like to decrease the fluid rate. I also strongly recommend giving her Lomotil and Imodium to slow down the output, and this will also help correct the electrolyte imbalance as well. 2. Hypokalemia. The potassium level is within normal range, however, she has had a history of hypokalemia, and has remained on a potassium-sparing diuretic in the past. I agree with the potassium-sparing diuretic, and will continue to monitor the potassium level closely while in the hospital. 3. Hypomagnesemia. The magnesium level has not been checked. We will check the magnesium level, continue the magnesium supplements, however, I am not sure of that she would be able to absorb. We will monitor the level and replace it as needed with IV magnesium sulfate. 4. Short gut syndrome. She has followed with physician at the [facility]. I strongly recommend that she follows with the physician over there for possibility of consideration of transplantation. 5. Chronic kidney disease stage 2 probably advancing to stage 3A disease. As of September and October her GRF had been around less than 60, and creatinine was usually in the range of 1.2 to 1.3. She probably had progression of the CKD secondary to multiple episodes of dehydration and CARRIE. 6. I thank you for this consultation. I appreciate the opportunity. Please do not hesitate to contact me if you have any questions. Please note that this consult is provided on November 07, 2016.
[2016-11-09] MEDS: BENADRYL 25 MG CAPSULE PO SCH (21:05)
[2016-11-09] MEDS: Lomotil PO PRN (21:05)
[2016-11-10 05:58] LABS: ANION GAP 9.1 MEQ/L (5-15); Carbon Dioxide 29.1 mEq/L (21-32); MAGNESIUM 1.8 mg/dL (1.8-2.4); Potassium 4.2 mEq/L (3.5-5.1)
[2016-11-10] MEDS: Norco 10/325 MG Tablet PO PRN (08:02)
[2016-11-10] MEDS: PROVENTIL COMMON CANISTER IH SCH ×4 (08:26→18:55)
[2016-11-10] MEDS: Flovent 110 Mcg COMMON CANISTER IH SCH ×2 (08:26→18:55)
[2016-11-10] MEDS: Paxil 12.5MG CR PO SCH ×2 (09:06→11:35)
[2016-11-10] MEDS: CLARITIN 10 MG PO SCH (09:07)
[2016-11-10] MEDS: Lomotil PO PRN (09:07)
[2016-11-10] MEDS: MAG-OX 400 PO SCH ×2 (09:07→22:10)
[2016-11-10] MEDS: Lasix 40 MG PO SCH (09:07)
[2016-11-10] MEDS: BACTRIM DS TABLET PO SCH (09:07)
[2016-11-10] MEDS: Valium 5 MG PO SCH ×3 (09:07→22:10)
[2016-11-10] MEDS: LYRICA 150MG PO SCH ×2 (09:08→22:11)
[2016-11-10] MEDS: Aldactone 25 MG PO SCH (09:08)
[2016-11-10] MEDS: Lactated Ringers 1,000 ML IV SCH (09:18)
[2016-11-10] MEDS: DILAUDID 2 MG INJECTION IV PRN ×4 (09:50→22:11)
--- NOTE | 2016-11-10 12:08 | PCM.NOTE ---
Date and Time: 11/10/16 1204 Subjective Assessment: She reports she continues to feel swollen. She is unsure what she should do at home tonight as far as her fluids. She reports Dr. Hinson, transplant surgeon, has told her in the past that she is not a good candidate for transplant and that he does not think she would survive this. - Review of Systems Constitutional: No Symptoms Eyes: No Symptoms Ears, Nose, & Throat: No Symptoms Respiratory: No Symptoms Cardiac: No Symptoms Abdominal/Gastrointestinal: Abdominal Pain Genitourinary Symptoms: No Symptoms Musculoskeletal: No Symptoms Skin: Other (She feels swollen) Objective Exam General Appearance: no apparent distress, alert Neurologic Exam: alert, cooperative, normal mood/affect Skin Exam: normal color, warm, dry Respiratory Exam: normal breath sounds, lungs clear, No crackles/rales, No rhonchi, No wheezing Cardiovascular Exam: regular rate/rhythm, normal heart sounds, No murmur, No friction rub, No gallop Gastrointestinal/Abdomen Exam: soft, normal bowel sounds, other (suprapubic catheter in place and ostomy in place) Extremity Exam: other (trace edema bilat) OBJECTIVE DATA Vital Signs: Vital Signs - 24 hr Temp Pulse Resp BP Pulse Ox 11/10/16 11:54 98.0 F 81 18 109/52 95 11/10/16 08:27 84 16 96 11/10/16 07:30 97.8 F 78 19 115/67 93 L 11/10/16 04:00 97.8 F 78 15 98/56 95 11/10/16 00:00 98.3 F 86 14 99/57 94 L 11/09/16 20:00 98.0 F 97 H 16 125/63 95 11/09/16 19:24 90 18 93 L 11/09/16 16:00 98.2 F 88 18 122/70 95 11/09/16 15:08 97 Pain Assessment - Last Documented Pain Intensity 7 Pain Scale Used 0-10 Pain Scale Intake and Output: Intake & Output 11/08/16 11/09/16 11/10/16 11/11/16 06:59 06:59 06:59 06:59 Intake Total 1478 4172 Output Total 3150 3015 1000 Balance -1672 1157 -1000 Weight 70.488 kg Lab Results: Lab Results-Last 24 Hours 04/09/17 Range/Units 05:15 Sodium 140 (136-145) mEq/L Potassium 4.2 (3.5-5.1) mEq/L Chloride 106 (98-107) mEq/L Carbon Dioxide 29.1 (21-32) mEq/L Anion Gap 9.1 (5-15) MEQ/L BUN 14 (9-20) mg/dL Creatinine 1.24 (0.55-1.30) mg/dl Estimated GFR 48 ML/MIN Glucose 96 (70-110) MG/DL Calcium 8.2 L (8.5-10.1) mg/dL Magnesium 1.8 (1.8-2.4) mg/dL Assessment/Plan (1) Acute renal failure Current Visit: Yes Status: Acute (2) Chronic kidney disease (CKD) stage G3a/A1, moderately decreased glomerular filtration rate (GFR) between 45-59 mL/min/1.73 square meter and albuminuria creatinine ratio less than 30 mg/g Current Visit: Yes Status: Acute Assessment & Plan: Discussed with medtronics technician decorator street and building, Dr. Leyva, today. He wants her to stay another day as her ostomy output has been high at 1950 mL over the past 24 hours. He states one of the nephrologists will see her in the hospital tomorrow. He wants to change her fluid replacement from 1 ml for 1 mL to 0.5 mL of replacement for each 1 mL of fluid. Code(s): N18.3 - CHRONIC KIDNEY DISEASE, STAGE 3 (MODERATE) (3) Chronic abdominal pain Current Visit: Yes Status: Acute Code(s): R10.9 - UNSPECIFIED ABDOMINAL PAIN ; G89.29 - OTHER CHRONIC PAIN
[2016-11-10] MEDS: BENADRYL 25 MG CAPSULE PO SCH (22:10)
[2016-11-11] MEDS: Lactated Ringers 1,000 ML IV SCH ×3 (03:24→16:31)
[2016-11-11] MEDS: DILAUDID 2 MG INJECTION IV PRN ×4 (03:47→16:51)
[2016-11-11 05:45] LABS: ANION GAP 11.1 MEQ/L (5-15); Carbon Dioxide 30.3 mEq/L (21-32); MAGNESIUM 1.5 mg/dL (1.8-2.4); Potassium 3.8 mEq/L (3.5-5.1)
[2016-11-11] MEDS: Flovent 110 Mcg COMMON CANISTER IH SCH (07:19)
[2016-11-11] MEDS: PROVENTIL COMMON CANISTER IH SCH ×3 (07:20→15:34)
--- NOTE | 2016-11-11 08:10 | PCM.NOTE ---
Date and Time: 11/11/16 0807 Subjective Assessment: She is overall feeling much better. Still bloated. Just to clarify, she has discussed a multi-organ transplant, including kidney, with Dr. Hinson; he told her if she "had to" they would consider it but he felt she would not survive the surgery. Objective Exam General Appearance: no apparent distress Neurologic Exam: alert, oriented x 3, cooperative Skin Exam: normal color, warm, dry Respiratory Exam: normal breath sounds, lungs clear, No crackles/rales Cardiovascular Exam: regular rate/rhythm, normal heart sounds, No murmur Extremity Exam: other (trace pretibial edema bilat) OBJECTIVE DATA Vital Signs: Vital Signs - 24 hr Temp Pulse Resp BP Pulse Ox 11/11/16 07:28 98.4 F 87 18 86/54 95 11/11/16 07:20 85 16 93 L 11/11/16 04:00 98.8 F 76 14 95/54 95 11/11/16 00:00 98.5 F 85 13 94/53 95 11/10/16 20:00 98.0 F 89 14 125/60 97 11/10/16 18:55 86 17 96 11/10/16 16:12 78 18 96 11/10/16 16:00 98.0 F 84 17 111/61 98 11/10/16 13:34 74 18 96 11/10/16 11:54 98.0 F 81 18 109/52 95 11/10/16 08:27 84 16 96 Pain Assessment - Last Documented Pain Intensity 6 Pain Scale Used 0-10 Pain Scale Intake and Output: Intake & Output 11/08/16 11/09/16 11/10/16 11/11/16 11:59 11:59 11:59 11:59 Intake Total 1478 4172 3376 Output Total 3150 4015 4500 Balance -1672 157 -1124 Weight 70.488 kg Lab Results: Lab Results-Last 24 Hours 11/11/16 Range/Units 04:50 Sodium 142 (136-145) mEq/L Potassium 3.8 (3.5-5.1) mEq/L Chloride 104 (98-107) mEq/L Carbon Dioxide 30.3 (21-32) mEq/L Anion Gap 11.1 (5-15) MEQ/L BUN 10 (9-20) mg/dL Creatinine 1.28 (0.55-1.30) mg/dl Estimated GFR 47 ML/MIN Glucose 99 (70-110) MG/DL Calcium 8.0 L (8.5-10.1) mg/dL Magnesium 1.5 L (1.8-2.4) mg/dL Assessment/Plan (1) Renal insufficiency Current Visit: No Status: Resolved Assessment & Plan: Improved after her first hospital day and has been fairly stable. Appreciate nephrology consult, thank you! Allocation Analyst to see pt today and we will go from there. (2) Generalized weakness Current Visit: Yes Status: Acute Assessment & Plan: much improved. Code(s): R53.1 - WEAKNESS (3) Chronic abdominal pain Current Visit: Yes Status: Chronic Code(s): R10.9 - UNSPECIFIED ABDOMINAL PAIN; G89.29 - OTHER CHRONIC PAIN (4) Dehydration Current Visit: Yes Status: Resolved Code(s): E86.0 - DEHYDRATION
[2016-11-11] MEDS: MAG-OX 400 PO SCH (09:53)
[2016-11-11] MEDS: LYRICA 150MG PO SCH (09:54)
[2016-11-11] MEDS: Lasix 40 MG PO SCH (09:54)
[2016-11-11] MEDS: Valium 5 MG PO SCH ×2 (09:54→15:46)
[2016-11-11] MEDS: CLARITIN 10 MG PO SCH (09:54)
[2016-11-11] MEDS: Aldactone 25 MG PO SCH (09:54)
[2016-11-11] MEDS: Paxil 12.5MG CR PO SCH ×2 (09:55→12:47)
[2016-11-11] MEDS: BACTRIM DS TABLET PO SCH (09:55)
[2016-11-11] MEDS: Norco 10/325 MG Tablet PO PRN (11:34)
[2016-11-11] MEDS: ZOVIRAX 200 MG PO SCH ×2 (13:08→15:46)
[2016-11-11] MEDS ORDERED: Miscellaneous Medication Order MC ONE (15:23)
[2016-11-11] MEDS ORDERED: Magnesium Sulfate 1 GM/2 ML VIAL IV ONE (15:30)
[2016-11-11] MEDS ORDERED: MAG-OX 400 PO SCH (15:45)
[2016-11-11] MEDS ORDERED: Magnesium 1 Gm / 100 Ml D5W*** 100 ML IV ONE (15:45)
[2016-11-11] MEDS ORDERED: Lomotil PO PRN (16:00)
[2016-11-11 16:49] VITALS: BP 104/63; PULSE 80; O2SAT 97
== END 2016-11-11 19:20 | disposition home or self-care (01) | DRG 641 ==
LOC: ED 08:11 → MED SURG 12:53 → OBSVTOIN 11-08 09:02
PROVIDERS: ADMIT Family Medicine; ATTEND Family Medicine
DX: E86.0 Dehydration (principal); N17.9 Acute kidney failure, unspecified; K50.90 Crohn's disease, unspecified, without complications; N18.3 Chronic kidney disease, stage 3 (moderate); E87.6 Hypokalemia; E83.42 Hypomagnesemia; F41.8 Other specified anxiety disorders; R53.1 Weakness; Z90.49 Acquired absence of other specified parts of digestive tract; R79.89 Other specified abnormal findings of blood chemistry; Z79.899 Other long term (current) drug therapy
CPT/HCPCS: 36000; 36415; 74022; 76705; 76770; 80048; 80053; 81000; 82550; 82570; 83605; 83690; 83735; 84133; 84300; 84999; 85025; 87086; 93005; 94640; 94760; 96360; 96361; 96375; 99285; G0378; J1170; J1200; J1642; J1940; J2405; J3475; P9612; A9270-GY

== ENCOUNTER 2016-12-02 08:43 | Inpatient (IN) | payer MEDICARE ==
[2016-12-02] MEDS ORDERED: MORPHINE SULFATE 10 MG/ML IV PRN (14:19)
[2016-12-02 15:05] LABS: BASOPHIL % 0.4 % (0.0-0.4); Eosinophil % 3.5 % (0.00-5.0); Granulocytes % 57.2 % (36.0-66.0); Lymphocytes % 31.3 % (24.0-44.0); Mean Corpuscular Hemoglobin 30.3 pg (26-32); Mean Platelet Volume 9.5 fl (6-9.5); Monocytes % 7.6 % (0.0-12.0); Platelet Count 320 K/mm3 (150-450); Red Blood Count 4.32 M/mm3 (4.1-5.4); Red Cell Distribution Width 14.9 % (11.5-14.0); White Blood Count 7.6 K/mm3 (4.0-10.5)
[2016-12-02] MEDS: Lactated Ringers 1,000 ML IV SCH (15:17)
[2016-12-02] MEDS: Zofran 4 MG/2 ML VIAL IV PRN (15:18)
[2016-12-02 15:22] LABS: ANION GAP 17.2 MEQ/L (5-15); BILIRUBIN,TOTAL 0.3 mg/dL (0.2-1.0); Carbon Dioxide 25.5 mEq/L (21-32); Total Protein 8.6 gm/dL (6.4-8.2)
--- NOTE | 2016-12-02 15:46 | XRAY ---
Indication: Abdomen pain. Comparison: November 07, 2016. 2 views of the abdomen again nonacute and nonobstructed with cholecystectomy clips, right lower quadrant ostomy, and suprapubic catheter. No free air. Solid organs and osseous structures unremarkable. Single PA chest again demonstrates normal heart, lungs, and bony thorax with right-sided Port-A-Cath. Impression: Stable nonacute nonobstructed abdomen and normal 1 view chest.
[2016-12-02 16:45] LABS: COMPLETE URINE MICROSCOPIC? YES; Collection Type CCMS; WBC 15-25 /HPF (0-5)
[2016-12-02 16:46] LABS: ADD URINE CULTURE? YES (NO); Bacteria MODERATE /HPF (NEGATIVE); Yeast MANY /HPF (NEGATIVE)
[2016-12-02] MEDS ORDERED: DILAUDID 2 MG INJECTION IV PRN (17:24)
[2016-12-02] MEDS ORDERED: Flovent 110 Mcg COMMON CANISTER IH SCH (19:00)
[2016-12-02] MEDS ORDERED: Magnesium Sulfate 1 GM/2 ML VIAL IV ONE (20:40)
--- NOTE | 2016-12-02 21:01 | PCM.HP ---
History of Present Illness - Chief Complaint Chief Complaint: Abdominal pain History of Present Illness: is a 51 year old female pt of mine from [facility] with long medical hx c/o 1 week of increased abd pain. Pain is epigastric mostly, was 10/10 on admission , 7/10 after 1 mg dilaudid. Her amylase and lipase are elevated. She has had pancreatitis in the past few months. She has a hx shortgut syndrome s/p bowel resection and suprapubic catheter after bladder injury in surgery. She has chronic renal insuffiency and has been seeing Dr. Orourke every week and getting labs and IV fluids 3x/week. Her Mg was 1.7 3d ago. Today was 1.5. She has had 1100 cc out of her ileostomy in the past 3 hours, she states being on CLD has that effect. - Review of Systems Respiratory: Cough, Wheezing Cardiac: Edema (generalized) Abdominal/Gastrointestinal: Abdominal Pain, Nausea, Vomiting, Appetite Changes Genitourinary Symptoms: Other (tx for UTI last week; just finish 5d of cipro) Psychological: Anxiety, No Suicidal Ideations Medications & Allergies Home Medications: Home Medication List Hydrocodone/APAP 10/325 mg [[place] 10/325 MG Tablet] 1 tab PO 0500,1200, 1900 PRN 08/26/14 [History Confirmed 12/02/16] Paroxetine HCl [Paxil Cr] 25 mg PO 1200 11/15/15 [History Confirmed 12/02/16] Paroxetine HCl [Paxil Cr] 37.5 mg PO 0500 11/15/15 [History Confirmed 12/02/16] Diazepam [Valium] 10 mg PO TID 06/17/16 [History Confirmed 12/02/16] Doxylamine Succinate [Unisom] 25 mg PO HS 06/17/16 [History Confirmed 12/02/16] Promethazine HCl 25 mg [Phenergan 25 mg] 25 mg PO Q6HPRN PRN 06/17/16 [ History Confirmed 12/02/16] Albuterol Sulfate [Ventolin Hfa] 90 mcg IH QID 08/06/16 [History Confirmed 12/02] Cetirizine HCl [Zyrtec] 10 mg PO DAILY PRN PRN 08/06/16 [History Confirmed 12/02] Fluticasone Propionate [Flovent Hfa] 110 mcg IH BID 08/06/16 [History Confirmed 12/02/16] Spironolactone 200 mg PO DAILY 08/27/16 [History Confirmed 12/02/16] Opium/Belladonna Alkaloids [Belladonna-Opium 16.2-30 Supp] 1 each RC DAILY 09/10 [History Confirmed 12/02/16] Solifenacin Succinate [Vesicare] 5 mg PO DAILY 11/07/16 [History Confirmed 12/02] Sulfamethoxazole/Trimethoprim [Bactrim Ds Tablet] 1 ea PO DAILY 11/07/16 [ History Confirmed 12/02/16] Pregabalin [Lyrica 150Mg] 150 mg PO BID 11/08/16 [History Confirmed 12/02/16] Ringers Solution,Lactated [Lactated Ringers] 500 ml IV UD #0 bag 11/11/16 [Rx Confirmed 12/02/16] Cholestyramine (with Sugar) [Questran Packet] 4 gm PO BID PRN PRN 12/02/16 [ History Confirmed 12/02/16] Allergies/Adverse Reactions: Allergies Allergy/AdvReac Type Severity Reaction Status Date / Time oxybutynin Allergy Severe Verified 11/13/16 13:22 ampicillin Allergy Mild Verified 11/13/16 13:22 duloxetine [From Cymbalta] Allergy Mild Verified 11/13/16 13:22 erythromycin base Allergy Mild Verified 11/13/16 13:22 [Erythromycin Base] - Past Medical History Past Medical History: Yes Neurological History: Migraines ENT History: No Pertinent History Cardiac History: No Pertinent History Respiratory History: No Pertinent History Endocrine Medical History: No Pertinent History Musculoskelatal History: No Pertinent History GI Medical History: Colitis, Hepatitis, Other History: Other Pyscho-Social History: Anxiety, Depression Reproductive Disorders: No Pertinent History Comment: short gut syndrome,chronic diarrhea,small bowel bacterial overgrowth. hx bowel obstruction 04/03 and others stated in the past. stage 2 kidney disease - Female History Are you now?: No - Past Surgical History Past Surgical History: Yes Neuro Surgical History: No Pertinent History Cardiac History: No Pertinent History Respiratory Surgery: No Pertinent History GI Surgical History: Colon Resection, Other Genitourinary Surgical Hx: Other Musculskeletal Surgical Hx: No Pertinent History Female Surgical History: Hysterectomy Other Surgical History: 100cm small bowel removal and resection and colon and large bowel removed, bladder surgen with suprapubic catheter placed. stent in rt ureter ,bladder revision with larger stent - Social History Smoking Status: Current every day smoker How long have you smoked: 20 Exposure to second hand smoke: Yes Alcohol: None Drug Use: none - Physical Exam Vital Signs: Vital Signs - 24 hr Temp Pulse Resp BP Pulse Ox 12/02/16 20:00 98.1 F 86 19 115/69 94 L 12/02/16 14:36 98.2 F 106 H 22 118/75 95 General Appearance: no apparent distress Neurologic Exam: alert, oriented x 3, cooperative, normal mood/affect Eye Exam: eyes nml inspection Neck Exam: normal inspection Respiratory Exam: normal breath sounds, wheezing (scattered), No crackles/rales , No rhonchi Cardiovascular Exam: regular rate/rhythm, normal heart sounds, No murmur Gastrointestinal/Abdomen Exam: soft, tenderness (epigastrum), other (ileostomy present. BS hypoactive) Back Exam: normal inspection, No CVA tenderness Extremity Exam: swelling (generalized edema UE and LE L>R; no pitting) Skin Exam: normal color, warm, dry Results - Labs Lab/Micro Results: Lab Results-Last 24 Hours 12/02/16 12/02/16 12/02/16 Range/Units 14:30 14:30 14:30 WBC 7.6 (4.0-10.5) K/mm3 RBC 4.32 (4.1-5.4) M/mm3 Hgb 13.1 (12.0-16.0) gm/dl Hct 38.9 (35-47) % MCV 90.0 (78-100) fl MCH 30.3 (26-32) pg MCHC 33.7 (32-36) g/dl RDW 14.9 H (11.5-14.0) % Plt Count 320 (150-450) K/mm3 MPV 9.5 (6-9.5) fl Gran % 57.2 (36.0-66.0) % Lymphocytes % 31.3 (24.0-44.0) % Monocytes % 7.6 (0.0-12.0) % Eosinophils % 3.5 (0.00-5.0) % Basophils % 0.4 (0.0-0.4) % Basophils # 0.03 (0-0.4) Sodium 134 L (136-145) mEq/L Potassium 4.0 (3.5-5.1) mEq/L Chloride 95 L (98-107) mEq/L Carbon Dioxide 25.5 (21-32) mEq/L Anion Gap 17.2 H (5-15) MEQ/L BUN 33 H (9-20) mg/dL Creatinine 1.50 H (0.55-1.30) mg/dl Estimated GFR 39 ML/MIN Glucose 116 H (70-110) MG/DL Calcium 9.4 (8.5-10.1) mg/dL Magnesium 1.5 L (1.8-2.4) mg/dL Total Bilirubin 0.3 (0.2-1.0) mg/dL AST 42 H (15-37) U/L ALT 85 H (12-78) U/L Alkaline Phosphatase 215 H (46-116) U/L Serum Total Protein 8.6 H (6.4-8.2) gm/dL Albumin 4.0 (3.4-5.0) g/dL Amylase 131 H (25-115) U/L Lipase 395 H (73-393) U/L Ur Collection Type Urine Color (YELLOW) Urine Appearance (CLEAR) Urine pH (5-6) Ur Specific [place] (1.005-1.025) Urine Protein (Negative) Urine Glucose (UA) (NEGATIVE) mg/dL Urine Ketones (NEGATIVE) Urine Nitrite (NEGATIVE) Urine Bilirubin (NEGATIVE) Urine Urobilinogen (0-1) mg/dL Urine WBC (Auto) (NEGATIVE) Urine RBC (Auto) (0-5) Gregg/ul Urine Microscopic RBC (0-2) /HPF Urine Microscopic WBC (0-5) /HPF Amorphous Crystals (NEGATIVE) /HPF Urine Bacteria (NEGATIVE) /HPF Urine Yeast (NEGATIVE) /HPF Specimen Received 12/02/16 Range/Units 15:51 WBC (4.0-10.5) K/mm3 RBC (4.1-5.4) M/mm3 Hgb (12.0-16.0) gm/dl Hct (35-47) % MCV (78-100) fl MCH (26-32) pg MCHC (32-36) g/dl RDW (11.5-14.0) % Plt Count (150-450) K/mm3 MPV (6-9.5) fl Gran % (36.0-66.0) % Lymphocytes % (24.0-44.0) % Monocytes % (0.0-12.0) % Eosinophils % (0.00-5.0) % Basophils % (0.0-0.4) % Basophils # (0-0.4) Sodium (136-145) mEq/L Potassium (3.5-5.1) mEq/L Chloride (98-107) mEq/L Carbon Dioxide (21-32) mEq/L Anion Gap (5-15) MEQ/L BUN (9-20) mg/dL Creatinine (0.55-1.30) mg/dl Estimated GFR ML/MIN Glucose (70-110) MG/DL Calcium (8.5-10.1) mg/dL Magnesium (1.8-2.4) mg/dL Total Bilirubin (0.2-1.0) mg/dL AST (15-37) U/L ALT (12-78) U/L Alkaline Phosphatase (46-116) U/L Serum Total Protein (6.4-8.2) gm/dL Albumin (3.4-5.0) g/dL Amylase (25-115) U/L Lipase (73-393) U/L Ur Collection Type CCMS Urine Color YELLOW (YELLOW) Urine Appearance CLOUDY (CLEAR) Urine pH 5.0 (5-6) Ur Specific [place] 1.025 (1.005-1.025) Urine Protein 100 (Negative) Urine Glucose (UA) NEGATIVE (NEGATIVE) mg/dL Urine Ketones TRACE (NEGATIVE) Urine Nitrite NEGATIVE (NEGATIVE) Urine Bilirubin NEGATIVE (NEGATIVE) Urine Urobilinogen 0.2 (0-1) mg/dL Urine WBC (Auto) SMALL (NEGATIVE) Urine RBC (Auto) MODERATE (0-5) Gregg/ul Urine Microscopic RBC 5-10 (0-2) /HPF Urine Microscopic WBC 15-25 (0-5) /HPF Amorphous Crystals MODERATE (NEGATIVE) /HPF Urine Bacteria MODERATE (NEGATIVE) /HPF Urine Yeast MANY (NEGATIVE) /HPF Specimen Received 12-02-16 6343 - Radiology Impressions Radiology Exams & Impressions: Radiology Procedures Category Date Time Status OBSTR/ACUTE ABDOMEN SERIES Routine Exams 12/02/16 15:00 Completed Assessment/Plan (1) Pancreatitis Current Visit: Yes Status: Acute Qualifiers: Chronicity: acute Pancreatitis type: unspecified pancreatitis type Acute pancreatitis complication: no infection or necrosis Qualified Code(s): K85.90 - Acute pancreatitis without necrosis or infection, unspecified Assessment & Plan: IV fluids; advised she can can eat if necessary but would prefer she stick to liquids for a day or two if possible. Code(s): K85.90 - ACUTE PANCREATITIS WITHOUT NECROSIS OR INFECTION, UNSP (2) Renal insufficiency Current Visit: No Status: Resolved Assessment & Plan: will consult Dr. Orourke as he follows her closely outpatient. (3) Dehydration Current Visit: No Status: Resolved Assessment & Plan: on LR at 100 cc /hr Code(s): E86.0 - DEHYDRATION (4) Hypomagnesemia Current Visit: No Status: Resolved Assessment & Plan: 2g Mg IV now; recheck in a.m. Code(s): E83.42 - HYPOMAGNESEMIA
[2016-12-02] MEDS ORDERED: PROVENTIL 2.5 MG/3 ML NEB IH PRN (21:04)
[2016-12-02] MEDS ORDERED: Magnesium 1 Gm / 100 Ml D5W*** 200 ML IV ONE (21:14)
[2016-12-02] MEDS: DILAUDID 2 MG INJECTION IV PRN (21:44)
[2016-12-02] MEDS: Magnesium 1 Gm / 100 Ml D5W*** 100 ML IV SCH ×2 (21:45→22:38)
[2016-12-02] MEDS: PROVENTIL COMMON CANISTER IH SCH (22:12)
[2016-12-02] MEDS: LYRICA 150MG PO SCH (23:14)
[2016-12-02] MEDS: Valium 5 MG PO SCH (23:14)
[2016-12-03] MEDS: Lactated Ringers 1,000 ML IV SCH ×2 (02:42→12:24)
[2016-12-03] MEDS: DILAUDID 2 MG INJECTION IV PRN ×6 (04:20→21:02)
[2016-12-03 06:18] LABS: LIPASE 372 U/L (73-393)
[2016-12-03 06:26] LABS: ALBUMIN 3.5 g/dL (3.4-5.0); ANION GAP 12.4 MEQ/L (5-15); BILIRUBIN,TOTAL 0.4 mg/dL (0.2-1.0); Carbon Dioxide 30.5 mEq/L (21-32); MAGNESIUM 2.2 mg/dL (1.8-2.4); Potassium 3.7 mEq/L (3.5-5.1)
[2016-12-03] MEDS ORDERED: PROVENTIL COMMON CANISTER IH SCH (07:00)
[2016-12-03] MEDS: PROVENTIL COMMON CANISTER IH SCH ×4 (07:10→20:35)
[2016-12-03] MEDS ORDERED: NON-FORMULARY ITEM (Cetirizine Hcl [Zyrtec] 10 MG) PO PRN (07:12)
[2016-12-03] MEDS ORDERED: CHOLESTYRAMINE 4 GM PO PRN (07:12)
[2016-12-03] MEDS ORDERED: [UNRECOGNIZED DRUG - OTHER] PO PRN (07:12)
[2016-12-03] MEDS ORDERED: CLARITIN 10 MG PO PRN (07:16)
[2016-12-03] MEDS ORDERED: QUESTRAN Light 4 GM Packet PO PRN (07:17)
[2016-12-03] MEDS: Flovent 110 Mcg COMMON CANISTER IH SCH ×2 (07:26→20:34)
[2016-12-03] MEDS ORDERED: MEDICATION INTERVENTION MC SCH ×2 (07:30)
--- NOTE | 2016-12-03 08:46 | PCM.NOTE ---
Date and Time: 12/03/16 08 Subjective Assessment: Still c/o epigastric pain, 9/10 this morning. Has tolerated some po. Less out of her ostomy through the night. Still c/o generalized edema. - Review of Systems Constitutional: No Fever Cardiac: Edema Objective Exam General Appearance: no apparent distress Neurologic Exam: alert, oriented x 3, cooperative Skin Exam: normal color, warm, dry Respiratory Exam: normal breath sounds, wheezing (faint wheeze), No crackles/ rales, No rhonchi Cardiovascular Exam: regular rate/rhythm, normal heart sounds, No murmur Extremity Exam: other (generalized nonpitting edema throughout UE and LE bilat) OBJECTIVE DATA Vital Signs: Vital Signs - 24 hr Temp Pulse Resp BP Pulse Ox 12/03/16 07:36 98.2 F 80 18 106/58 93 L 12/03/16 07:29 75 16 95 12/03/16 04:00 97.8 F 78 18 109/55 95 12/03/16 00:00 98.0 F 81 18 111/58 94 L 12/02/16 22:00 89 20 96 12/02/16 20:00 98.1 F 86 19 115/69 94 L 12/02/16 19:00 89 20 96 12/02/16 14:36 98.2 F 106 H 22 118/75 95 Pain Assessment - Last Documented Pain Intensity 10 Pain Scale Used 0-10 Pain Scale Intake and Output: Intake & Output 11/30/16 12/01/16 12/02/16 12/03/16 11:59 11:59 11:59 11:59 Intake Total 1764 Output Total 1000 Balance 764 Weight 67.54 kg Lab Results: Lab Results-Last 24 Hours 12/02/16 12/02/16 12/02/16 Range/Units 05:50 14:30 14:30 WBC 7.6 (4.0-10.5) K/mm3 RBC 4.32 (4.1-5.4) M/mm3 Hgb 13.1 (12.0-16.0) gm/dl Hct 38.9 (35-47) % MCV 90.0 (78-100) fl MCH 30.3 (26-32) pg MCHC 33.7 (32-36) g/dl RDW 14.9 H (11.5-14.0) % Plt Count 320 (150-450) K/mm3 MPV 9.5 (6-9.5) fl Gran % 57.2 (36.0-66.0) % Lymphocytes % 31.3 (24.0-44.0) % Monocytes % 7.6 (0.0-12.0) % Eosinophils % 3.5 (0.00-5.0) % Basophils % 0.4 (0.0-0.4) % Basophils # 0.03 (0-0.4) Sodium 136 134 L (136-145) mEq/L Potassium 3.7 4.0 (3.5-5.1) mEq/L Chloride 97 L 95 L (98-107) mEq/L Carbon Dioxide 30.5 25.5 (21-32) mEq/L Anion Gap 12.4 17.2 H (5-15) MEQ/L BUN 23 H 33 H (9-20) mg/dL Creatinine 1.27 1.50 H (0.55-1.30) mg/dl Estimated GFR 47 39 ML/MIN Glucose 114 H 116 H (70-110) MG/DL Calcium 9.0 9.4 (8.5-10.1) mg/dL Magnesium 2.2 (1.8-2.4) mg/dL Total Bilirubin 0.4 0.3 (0.2-1.0) mg/dL AST 50 H 42 H (15-37) U/L ALT 85 H 85 H (12-78) U/L Alkaline Phosphatase 202 H 215 H (46-116) U/L Serum Total Protein 7.0 8.6 H (6.4-8.2) gm/dL Albumin 3.5 4.0 (3.4-5.0) g/dL Amylase 131 H (25-115) U/L Lipase 395 H (73-393) U/L Ur Collection Type Urine Color (YELLOW) Urine Appearance (CLEAR) Urine pH (5-6) Ur Specific Prospect (1.005-1.025) Urine Protein (Negative) Urine Glucose (UA) (NEGATIVE) mg/dL Urine Ketones (NEGATIVE) Urine Nitrite (NEGATIVE) Urine Bilirubin (NEGATIVE) Urine Urobilinogen (0-1) mg/dL Urine WBC (Auto) (NEGATIVE) Urine RBC (Auto) (0-5) Gregg/ul Urine Microscopic RBC (0-2) /HPF Urine Microscopic WBC (0-5) /HPF Amorphous Crystals (NEGATIVE) /HPF Urine Bacteria (NEGATIVE) /HPF Urine Yeast (NEGATIVE) /HPF Specimen Received 12/02/16 12/02/16 12/03/16 Range/Units 14:30 15:51 05:50 WBC (4.0-10.5) K/mm3 RBC (4.1-5.4) M/mm3 Hgb (12.0-16.0) gm/dl Hct (35-47) % MCV (78-100) fl MCH (26-32) pg MCHC (32-36) g/dl RDW (11.5-14.0) % Plt Count (150-450) K/mm3 MPV (6-9.5) fl Gran % (36.0-66.0) % Lymphocytes % (24.0-44.0) % Monocytes % (0.0-12.0) % Eosinophils % (0.00-5.0) % Basophils % (0.0-0.4) % Basophils # (0-0.4) Sodium (136-145) mEq/L Potassium (3.5-5.1) mEq/L Chloride (98-107) mEq/L Carbon Dioxide (21-32) mEq/L Anion Gap (5-15) MEQ/L BUN (9-20) mg/dL Creatinine (0.55-1.30) mg/dl Estimated GFR ML/MIN Glucose (70-110) MG/DL Calcium (8.5-10.1) mg/dL Magnesium 1.5 L (1.8-2.4) mg/dL Total Bilirubin (0.2-1.0) mg/dL AST (15-37) U/L ALT (12-78) U/L Alkaline Phosphatase (46-116) U/L Serum Total Protein (6.4-8.2) gm/dL Albumin (3.4-5.0) g/dL Amylase 112 (25-115) U/L Lipase 372 (73-393) U/L Ur Collection Type CCMS Urine Color YELLOW (YELLOW) Urine Appearance CLOUDY (CLEAR) Urine pH 5.0 (5-6) Ur Specific Prospect 1.025 (1.005-1.025) Urine Protein 100 (Negative) Urine Glucose (UA) NEGATIVE (NEGATIVE) mg/dL Urine Ketones TRACE (NEGATIVE) Urine Nitrite NEGATIVE (NEGATIVE) Urine Bilirubin NEGATIVE (NEGATIVE) Urine Urobilinogen 0.2 (0-1) mg/dL Urine WBC (Auto) SMALL (NEGATIVE) Urine RBC (Auto) MODERATE (0-5) Gregg/ul Urine Microscopic RBC 5-10 (0-2) /HPF Urine Microscopic WBC 15-25 (0-5) /HPF Amorphous Crystals MODERATE (NEGATIVE) /HPF Urine Bacteria MODERATE (NEGATIVE) /HPF Urine Yeast MANY (NEGATIVE) /HPF Specimen Received 12-02-16 1633 Radiology Exams: Radiology Procedures Category Date Time Status OBSTR/ACUTE ABDOMEN SERIES Routine Exams 12/02/16 15:00 Completed Assessment/Plan (1) Pancreatitis Current Visit: Yes Status: Acute Qualifiers: Chronicity: acute Pancreatitis type: unspecified pancreatitis type Acute pancreatitis complication: no infection or necrosis Qualified Code(s): K85.90 - Acute pancreatitis without necrosis or infection, unspecified Assessment & Plan: amylase and lipase wnl this morning but she is still having the abd pain Code(s): K85.90 - ACUTE PANCREATITIS WITHOUT NECROSIS OR INFECTION, UNSP (2) Renal insufficiency Current Visit: No Status: Resolved Assessment & Plan: Dr. Orourke consulted. (3) Dehydration Current Visit: No Status: Resolved Code(s): E86.0 - DEHYDRATION (4) Hypomagnesemia Current Visit: No Status: Resolved Assessment & Plan: repleted with 2g MgSO4 yesterday. Dr. Orourke has been managing quite closely, thank you. Code(s): E83.42 - HYPOMAGNESEMIA
[2016-12-03] MEDS: Aldactone 25 MG PO SCH (09:10)
[2016-12-03] MEDS: LYRICA 150MG PO SCH ×2 (09:11→22:27)
[2016-12-03] MEDS: BACTRIM DS TABLET PO SCH (09:11)
[2016-12-03] MEDS: Valium 5 MG PO SCH ×3 (09:11→22:26)
[2016-12-03] MEDS: PATIENT OWN MEDICATION PO SCH (09:43)
[2016-12-03] MEDS: PATIENT OWN MEDICATION RC SCH (09:43)
[2016-12-03] MEDS ORDERED: BELLADONNA ALKALOIDS RC SCH (10:00)
[2016-12-03] MEDS ORDERED: Ventolin Hfa MDI IH SCH (10:00)
[2016-12-03] MEDS ORDERED: SPIRONOLACTONE 200 MG PO SCH (10:00)
[2016-12-03] MEDS ORDERED: OPIUM RC SCH (10:00)
[2016-12-03] MEDS: Paxil 12.5MG CR PO SCH ×2 (10:02→14:04)
[2016-12-03] MEDS ORDERED: PAROXETINE HCL 25 MG PO SCH (12:00)
[2016-12-03] MEDS: BUSPAR 5 MG PO SCH (14:05)
[2016-12-03] MEDS: Zofran 4 MG/2 ML VIAL IV PRN (21:03)
[2016-12-03] MEDS ORDERED: DOXYLAMINE SUCCINATE 25 MG PO SCH (22:00)
[2016-12-03] MEDS: BENADRYL 25 MG CAPSULE PO SCH (22:26)
[2016-12-04] MEDS ORDERED: BUSPAR 5 MG PO SCH (05:00)
[2016-12-04] MEDS ORDERED: PAROXETINE HCL 37.5 MG PO SCH (05:00)
[2016-12-04] MEDS: Lactated Ringers 1,000 ML IV SCH (05:08)
[2016-12-04] MEDS: BUSPAR 5 MG PO SCH ×2 (05:44→13:13)
[2016-12-04] MEDS: Paxil 12.5MG CR PO SCH ×2 (05:44→13:27)
[2016-12-04] MEDS: DILAUDID 2 MG INJECTION IV PRN ×5 (06:38→21:25)
[2016-12-04] MEDS: Flovent 110 Mcg COMMON CANISTER IH SCH ×2 (07:28→20:04)
[2016-12-04] MEDS: PROVENTIL COMMON CANISTER IH SCH ×4 (07:28→20:04)
[2016-12-04 07:42] LABS: ALBUMIN 3.1 g/dL (3.4-5.0); ANION GAP 10.8 MEQ/L (5-15); BILIRUBIN,TOTAL 0.2 mg/dL (0.2-1.0); Carbon Dioxide 28.3 mEq/L (21-32); MAGNESIUM 1.8 mg/dL (1.8-2.4); Potassium 4.3 mEq/L (3.5-5.1); Total Protein 6.7 gm/dL (6.4-8.2)
[2016-12-04] MEDS: Aldactone 25 MG PO SCH (08:12)
[2016-12-04] MEDS: Valium 5 MG PO SCH ×3 (08:13→20:52)
[2016-12-04] MEDS: LYRICA 150MG PO SCH ×2 (08:13→20:52)
[2016-12-04] MEDS: BACTRIM DS TABLET PO SCH (08:13)
[2016-12-04] MEDS: PATIENT OWN MEDICATION PO SCH (08:13)
[2016-12-04] MEDS: PATIENT OWN MEDICATION RC SCH ×2 (08:14→08:19)
--- NOTE | 2016-12-04 08:31 | CONS ---
CONSULT DATE: 12/03/2016 REASON FOR CONSULT: Chronic kidney disease, volume and electrolyte management. HISTORY: Jeanna Woods is a pleasant 51 year-old female with significant history of chronic kidney disease stage III, colitis, hepatitis B, depression and short gut syndrome admitted for abdominal pain. She has chronic history of abdominal pain sometimes it gets worse. Recently she had urinary tract infection. She was given ciprofloxacin by Dr. Orourke for five days. Even after finishing her ciprofloxacin she continued to have abdominal pain that led to hospital admission. Ringer lactate and magnesium three times a week. She is getting her electrolytes checked three times a week. Dr. Orourke follows her very closely. Today, she was complaining about swelling in her lower extremities. She denies any nausea, vomiting, headache, chest pain, shortness of breath, rash. REVIEW OF SYSTEMS: All other twelve reviewed systems were negative except in history of present illness. PAST MEDICAL HISTORY: Colitis. Hepatitis B. Anxiety disorder. Depression. Hypokalemia. Hypomagnesemia. Chronic kidney disease stage III. Short gut syndrome. PAST SURGICAL HISTORY: Colon resection. Ileostomy bag. Hysterectomy. Tubal ligation. Adhesion lysis. Suprapubic catheter placement. HOME MEDICATIONS: Albuterol sulfate 90 mcg four times a day, buspirone 10 mg p.o. b.i.d., Sertraline 10 mg p.o. daily PRN, cholestyramine 4 mg p.o. PRN, diazepam 10 mg p.o. t.i.d., doxylamine 25 mg p.o. q.h.s., fluticasone inhaler, Fowler, Belladonna opium, paroxetine 25 mg p.o. daily, paroxetine 37.5 mg p.o. daily, Lyrica 150 mg p.o. b.i.d., promethazine 25 mg p.o. every six hours PRN, Ringer's lactate 500 ml IV Friday, Friday and Friday. VESIcare 5 mg p.o. daily, Spironolactone 200 mg p.o. daily, Bactrim 1 tablet daily. Current medications reviewed. ALLERGIES: OXYBUTYNIN, AMPICILLIN, DULOXETINE, ERYTHROMYCIN. SOCIAL HISTORY: No history of smoking, alcohol use or any illicit drugs. FAMILY HISTORY: No one has kidney disease. PHYSICAL EXAMINATION: Vitals: Temperature 98.1F, pulse 80, respiratory rate 16, blood pressure 127/60. GENERAL: Alert, oriented, not in distress. HEENT: Oral mucosa moist. NECK: Supple. CHEST: Air entry equal bilaterally. Wheezing present. HEART: S1, S2 normal. No rub. ABDOMEN: Soft, nontender, bowel sounds present. EXTREMITIES: No edema. No clubbing. No cyanosis. COMPOSITION WORKER: No focal deficit. LAB DATA AND TESTS: Urine culture no growth to date. Creatinine 1.27, glucose 114, sodium 136, potassium 3.7, chloride 97, bicarb 30.5, calcium 9, magnesium 2.2, albumin 3.5, AST 50, ALT 85. Anion gap 12.4. UA showed 15 to 25 white blood cells, cloudy moderate bacteria, white blood cells 7.6, hemoglobin 13.1, RDW 14.9, neutrophils 57.2%, ASSESSMENT AND PLAN: 1) CHRONIC KIDNEY DISEASE STAGE III: Her serum creatinine varies from 1.2 to 1.5. Renal function seems to be stable, continue to monitor. Her chronic kidney disease is most likely secondary to urinary tract infection in the past plus repeated episode of volume depletion. 2) HYPOMAGNESEMIA. As an outpatient she gets magnesium 1 gm on Friday, Friday and Friday with Ringer's lactate. Yesterday magnesium was 1.5, it was replaced and today is 2.2. Will continue to monitor. 3) HISTORY OF HYPOKALEMIA. Potassium level is okay. She is on Spironolactone 200 mg p.o. daily, 4) ABDOMINAL PAIN: Most likely acute on chronic. She has history of more than 12 abdominal surgeries. Urine culture is pending. Urinary tract infection already treated. Treat symptomatically. Abdominal x-ray was negative for obstruction or an acute abdomen. She has only 120 cm of bowel left. 5) EDEMA. Clinically she does not have edema. She was complaining about edema. She was reassured. I will decrease the lactate Ringer's to 50 ml/hour. Thank you Dr. Haji for giving me the opportunity to participate in the care of this patient. I will follow this patient along with you.
[2016-12-04] MEDS ORDERED: DILAUDID 2 MG INJECTION IV STA (08:52)
[2016-12-04] MEDS ORDERED: Ativan 2 MG/1 ML VIAL IV ONE (08:52)
--- NOTE | 2016-12-04 09:01 | PCM.NOTE ---
Date and Time: 12/04/16 0856 Subjective Assessment: I enter the room to find pt writhing in pain and crying, saying her stomach hurts, like it's being squeezed. She started having increased abd pain about 1/ 2 hour ago, epigastric. She did eat breakfast, nothing unusual. Last dilaudid injection 2.5 hours ago. - Review of Systems Constitutional: No Fever Abdominal/Gastrointestinal: Abdominal Pain Objective Exam General Appearance: severe distress Neurologic Exam: alert, cooperative Skin Exam: normal color, warm, dry Respiratory Exam: normal breath sounds, lungs clear, No wheezing Cardiovascular Exam: regular rate/rhythm, normal heart sounds, No murmur Gastrointestinal/Abdomen Exam: soft, normal bowel sounds, tenderness (throughout , more so in epigastrum), guarding, No distention Extremity Exam: normal inspection OBJECTIVE DATA Vital Signs: Vital Signs - 24 hr Temp Pulse Resp BP Pulse Ox 12/04/16 07:43 97.7 F 87 18 113/63 96 12/04/16 07:29 82 16 97 12/04/16 04:00 98.0 F 73 15 96/56 94 L 12/04/16 00:00 97.7 F 82 14 100/58 96 12/03/16 20:35 77 20 96 12/03/16 20:00 98.2 F 76 16 105/62 95 12/03/16 16:00 97.6 F 81 20 113/66 95 12/03/16 15:34 71 18 96 12/03/16 12:00 98.1 F 82 20 127/60 94 L 12/03/16 10:59 81 16 92 L Pain Assessment - Last Documented Pain Intensity 6 Pain Scale Used 0-10 Pain Scale Intake and Output: Intake & Output 12/01/16 12/02/16 12/03/16 12/04/16 11:59 11:59 11:59 11:59 Intake Total 2184 3030 Output Total 1000 2775 Balance 1184 255 Weight 67.54 kg Lab Results: Lab Results-Last 24 Hours 12/04/16 Range/Units 05:59 Sodium 138 (136-145) mEq/L Potassium 4.3 (3.5-5.1) mEq/L Chloride 103 (98-107) mEq/L Carbon Dioxide 28.3 (21-32) mEq/L Anion Gap 10.8 (5-15) MEQ/L BUN 17 (9-20) mg/dL Creatinine 1.17 (0.55-1.30) mg/dl Estimated GFR 52 ML/MIN Glucose 95 (70-110) MG/DL Calcium 8.6 (8.5-10.1) mg/dL Magnesium 1.8 (1.8-2.4) mg/dL Total Bilirubin 0.2 (0.2-1.0) mg/dL AST 32 (15-37) U/L ALT 65 (12-78) U/L Alkaline Phosphatase 158 H (46-116) U/L Serum Total Protein 6.7 (6.4-8.2) gm/dL Albumin 3.1 L (3.4-5.0) g/dL Radiology Exams: Radiology Procedures Category Date Time Status ABDOMEN 2 VIEW Stat Exams 12/04/16 08:53 Ordered ABDOMEN AND PELVIS W/0 CONTRAS [CT] Stat Exams 12/04/16 08:54 Ordered OBSTR/ACUTE ABDOMEN SERIES Routine Exams 12/02/16 15:00 Completed Assessment/Plan (1) Abdominal pain Current Visit: No Status: Acute Qualifiers: Abdominal location: epigastric Qualified Code(s): R10.13 - Epigastric pain Assessment & Plan: greatly increased for the past 1/2 hour. Give dilaudid 1 mg now, with ativan 1mg in the event she is having some spasm. Plain film abdomen stat, followed by stat CT abd/pelvis without contrast. Code(s): R10.9 - UNSPECIFIED ABDOMINAL PAIN (2) Pancreatitis Current Visit: Yes Status: Acute Qualifiers: Chronicity: acute Pancreatitis type: unspecified pancreatitis type Acute pancreatitis complication: no infection or necrosis Qualified Code(s): K85.90 - Acute pancreatitis without necrosis or infection, unspecified Code(s): K85.90 - ACUTE PANCREATITIS WITHOUT NECROSIS OR INFECTION, UNSP (3) Renal insufficiency Current Visit: No Status: Resolved Assessment & Plan: Dr. Orourke consulting, thank you! (4) Dehydration Current Visit: No Status: Resolved Code(s): E86.0 - DEHYDRATION (5) Hypomagnesemia Current Visit: No Status: Resolved Code(s): E83.42 - HYPOMAGNESEMIA
--- NOTE | 2016-12-04 10:09 | XRAY ---
Indication: Severe upper abdominal pain. Comparison: December 02, 2016. KUB unchanged again nonacute and nonobstructed with cholecystectomy clips, right lower quadrant ostomy, and suprapubic catheter. Lung bases remain clear.
--- NOTE | 2016-12-04 10:40 | XRAY ---
Indication: Upper abdominal pain. Multiple contiguous axial images obtained through the abdomen and pelvis without contrast as ordered. Comparison: May 27, 2016. Lung bases remain essentially clear. Heart is not enlarged. Stomach is distended with food/fluid and a few pills. Noncontrasted stomach and bowel loops again demonstrates previous colectomy with right lower quadrant ostomy. Small bowel loops again diffusely fluid distended more than before with again some fluid leveling. Left abdominal and pelvic small bowel loops now demonstrates mild circumferential wall thickening suggesting enteritis. Bowel loop just proximal to the right lower quadrant anastomosis is now distended up to 5 cm with normal caliber and fecal debris distal to the anastomosis. Partial obstruction is of primary concern. No free fluid/air. Again previous cholecystectomy and hysterectomy. There remains a suprapubic catheter in situ with urinary bladder. Remaining liver, pancreas, spleen, adrenal glands, kidneys, ureters, and aorta appear unremarkable for noncontrast exam. Osseous structures intact. Impression: 1. Stable colectomy with right lower quadrant ostomy. Small bowel loops again fluid distended with some fluid leveling and new wall thickening favoring enteritis. 2. New distended bowel loop just proximal to the right lower quadrant anastomosis with normal appearance distally. Rule out partial obstruction. 3. Stable suprapubic catheter in situ. CT DI 16.89
[2016-12-04] MEDS ORDERED: PHARMACY DOSING REQUEST MC ONE (10:58)
[2016-12-04 11:15] LABS: BASOPHIL % 0.4 % (0.0-0.4); Eosinophil % 5.3 % (0.00-5.0); Granulocytes % 47.4 % (36.0-66.0); Lymphocytes % 38.5 % (24.0-44.0); Mean Cell Volume 95.3 fl (78-100); Mean Platelet Volume 9.9 fl (6-9.5); Monocytes % 8.4 % (0.0-12.0); Platelet Count 266 K/mm3 (150-450); Red Cell Distribution Width 14.9 % (11.5-14.0); White Blood Count 4.5 K/mm3 (4.0-10.5)
[2016-12-04] MEDS ORDERED: Levofloxacin 500MG/100ML D5W 100 ML IV SCH (11:15)
[2016-12-04] MEDS: FLAGYL 500 MG IVPB 100 ML IV SCH ×2 (11:52→17:51)
[2016-12-04] MEDS ORDERED: Lasix 40 MG/4 ML IV ONE (15:15)
[2016-12-04 16:24] VITALS: O2SAT 95
[2016-12-04 20:11] VITALS: PULSE 72
[2016-12-04] MEDS: BENADRYL 25 MG CAPSULE PO SCH (20:52)
[2016-12-04 21:32] VITALS: BP 99/56
== END 2016-12-04 22:30 | disposition short-term general hospital (02) | DRG 439 ==
LOC: MED SURG 08:43 → OBSVTOIN 12-03 08:43
PROVIDERS: ADMIT Family Medicine; ATTEND Family Medicine
DX: K85.90 Acute pancreatitis without necrosis or infection, unspecified (principal); B19.10 Unspecified viral hepatitis B without hepatic coma; N28.9 Disorder of kidney and ureter, unspecified; E86.0 Dehydration; E83.42 Hypomagnesemia; R10.13 Epigastric pain; E87.6 Hypokalemia; D64.9 Anemia, unspecified; N18.3 Chronic kidney disease, stage 3 (moderate); F41.8 Other specified anxiety disorders; Z90.49 Acquired absence of other specified parts of digestive tract; Z79.899 Other long term (current) drug therapy
CPT/HCPCS: 36415; 74000; 74022; 74176; 80053; 81000; 82150; 83605; 83690; 83735; 85025; 87086; 93268; 94640; 94760; G0378; J1170; J1940; J1956; J2060; J2270; J2405; J3475; A9270-GY

== ENCOUNTER 2016-12-07 19:14 | Inpatient (IN) | payer MEDICARE ==
[2016-12-07] MEDS ORDERED: Sodium Chloride 0.9% 1000 ML 1,000 ML IV STA (19:52)
[2016-12-07] MEDS ORDERED: MORPHINE SULFATE 4 MG INJ IV ONE ×2 (19:52→22:29)
[2016-12-07] MEDS ORDERED: Zofran 4 MG/2 ML VIAL IV ONE (19:52)
--- NOTE | 2016-12-07 19:52 | ERPHSYRPT ---
- History of Present Illness Time Seen by Provider: 12/07/16 19:47 Historian: patient, family Exam Limitations: no limitations Patient Subjective Stated Complaint: pt states she was diagnosed with pancreatitis recently and has been having abd pain, nausea and feels like she is dehydrated. Triage Nursing Assessment: pt alert and oriented, answers questions approp. pt transfer from wheelchair to stretcher with minimal assist. respirations nonlabored withlungs cta. abd soft with bowel sounds present. ileostomy to rt abd with minimal liquid stool at this time. pt sttes ostomy has been functioning normally today with gas present. suprapubic catheter present with concentrated urine. Physician History: The patient is a 51-year-old female with her sent into the ER per Dr. Vega for abdominal pain and dehydration. The patient was admitted to this hospital last week and then transferred to a hospital in [place] where she was diagnosed with pancreatitis. She was sent home yesterday and told to take clear fluids and advance the diet as tolerated. Today she has severe left- sided abdominal pain as well as dehydration. Her past medical history is significant for total colectomy and removal of most of her small bowel as well. She has renal failure. She has an ileostomy that today she says is working quite well. She has a suprapubic catheter which she states is flowing that she has produced very little urine today. She states she still has pancreatitis. She is nauseated. Timing/Duration: week(s) (1) Activities at Onset: none Quality: aching, burning Abdominal Pain Onset Location: [facility] Pain Radiation: no radiation Severity of Pain-Max: severe Severity of Pain-Current: severe Modifying Factors: Improves With: nothing Associated Symptoms: nausea Previous symptoms: same symptoms as today Allergies/Adverse Reactions: oxybutynin Allergy (Severe, Verified 12/07/16 19:33) pharyngeal swelling ampicillin Allergy (Mild, Verified 12/07/16 19:33) hives duloxetine [From Cymbalta] Allergy (Mild, Verified 12/07/16 19:33) nausea erythromycin base [Erythromycin Base] Allergy (Mild, Verified 12/07/16 19:33) Hives Home Medications: Hydrocodone/APAP 10/325 mg [[place] 10/325 MG Tablet] 1 tab PO 0500,1200, 1900 PRN 08/26/14 [History] Paroxetine HCl [Paxil Cr] 25 mg PO 1200 11/15/15 [History] Paroxetine HCl [Paxil Cr] 37.5 mg PO 0500 11/15/15 [History] Diazepam [Valium] 10 mg PO TID 06/17/16 [History] Doxylamine Succinate [Unisom] 25 mg PO HS 06/17/16 [History] Promethazine HCl 25 mg [Phenergan 25 mg] 25 mg PO Q6HPRN PRN 06/17/16 [ History] Albuterol Sulfate [Ventolin Hfa] 90 mcg IH QID PRN PRN 08/06/16 [History] Fluticasone Propionate [Flovent Hfa] 110 mcg IH BID PRN PRN 08/06/16 [History] Spironolactone 200 mg PO DAILY 08/27/16 [History] Opium/Belladonna Alkaloids [Belladonna-Opium 16.2-30 Supp] 1 each RC DAILY 09/10 [History] Solifenacin Succinate [Vesicare] 5 mg PO DAILY 11/07/16 [History] Sulfamethoxazole/Trimethoprim [Bactrim Ds Tablet] 1 ea PO DAILY 11/07/16 [ History] Pregabalin [Lyrica 150Mg] 150 mg PO BID 11/08/16 [History] Cholestyramine (with Sugar) [Questran Packet] 4 gm PO BID PRN PRN 12/02/16 [ History] Buspirone HCl [Buspar] 10 mg PO BID 12/03/16 [History] Hx Tetanus, Diphtheria Vaccination/Date Given: Yes (up to date) Hx Influenza Vaccination/Date Given: Yes Hx Pneumococcal Vaccination/Date Given: Yes Immunizations Up to Date: Yes - Review of Systems Constitutional: Weakness Eyes: No Symptoms Ears, Nose, & Throat: No Symptoms Respiratory: No Cough, No Dyspnea Cardiac: No Chest Pain, No Edema, No Syncope Abdominal/Gastrointestinal: Abdominal Pain, Nausea Genitourinary Symptoms: Urinary Retention Musculoskeletal: No Back Pain, No Neck Pain Skin: No Rash Neurological: No Dizziness, No Focal Weakness, No Sensory Changes Psychological: No Symptoms Endocrine: No Symptoms Hematologic/Lymphatic: No Symptoms Immunological/Allergic: No Symptoms All Other Systems: Reviewed and Negative - Past Medical History Pertinent Past Medical History: Yes Neurological History: Migraines ENT History: No Pertinent History Cardiac History: No Pertinent History Respiratory History: No Pertinent History Endocrine Medical History: No Pertinent History Musculoskeletal History: No Pertinent History GI Medical History: Colitis, Hepatitis, Other History: Other Psycho-Social History: Anxiety, Depression Female Reproductive Disorders: No Pertinent History Other Medical History: short gut syndrome,chronic diarrhea,small bowel bacterial overgrowth. hx bowel obstruction 04/03 and others stated in the past. stage 2 kidney disease - Past Surgical History Past Surgical History: Yes Neuro Surgical History: No Pertinent History Cardiac: No Pertinent History Respiratory: No Pertinent History Gastrointestinal: Colon Resection, Other Genitourinary: Other Musculoskeletal: No Pertinent History Female Surgical History: Hysterectomy Other Surgical History: 100cm small bowel removal and resection and colon and large bowel removed, bladder surgen with suprapubic catheter placed. stent in rt ureter ,bladder revision with larger stent - Social History Smoking Status: Current every day smoker How long have you smoked: 20 Exposure to second hand smoke: Yes Drug Use: none Patient Lives Alone: No - Female History Hx Now: No - Nursing Vital Signs Nursing Vital Signs: Initial Vital Signs Temperature 97.6 F Temperature Source Oral Pulse Rate 78 Respiratory Rate 16 Blood Pressure [] 106/68 Pain Intensity 6 - Physical Exam General Appearance: mild distress Eye Exam: PERRL/EOMI, eyes nml inspection Ears, Nose, Throat Exam: normal ENT inspection, pharynx normal, moist mucous membranes Neck Exam: normal inspection, non-tender, supple, full range of motion Respiratory Exam: normal breath sounds, lungs clear, No respiratory distress Cardiovascular Exam: regular rate/rhythm, normal heart sounds Gastrointestinal/Abdomen Exam: tenderness Pelvic Exam: not done Rectal Exam: not done Back Exam: normal inspection, normal range of motion, No CVA tenderness, No vertebral tenderness Extremity Exam: normal inspection, normal range of motion, pelvis stable Neurologic Exam: alert, oriented x 3, cooperative, normal mood/affect, nml cerebellar function, sensation nml, No motor deficits Skin Exam: normal color, warm, dry SpO2 Interpretation: normal SpO2: 96 Oxygen Delivery: Room Air - Radiology Exams Abdomen X-ray Interpretation: Interpreted by me, Negative Ordered Tests: Active Orders 24 hr Category Date Time Status IV Insertion STAT Care 12/07/16 19:52 Active KUB Stat Exams 12/07/16 19:52 Taken CBC W DIFF Stat Lab 12/07/16 20:49 Completed CMP Stat Lab 12/07/16 20:49 Completed HCG QUALITATIVE,SERUM Stat Lab 12/07/16 20:49 Completed LIPASE Stat Lab 12/07/16 20:49 Completed Lactic Acid Urgent Lab 12/07/16 20:42 Completed MAGNESIUM Stat Lab 12/07/16 20:49 Completed UA W/ MICROSCOPIC Stat Lab 12/07/16 20:49 Completed Medication Summary Discontinued Medications Generic Name Dose Route Start Last Admin Trade Name Kristy PRN Reason Stop Dose Admin Sodium Chloride 1,000 mls @ 999 mls/hr 12/07/16 19:52 12/07/16 20:12 Sodium Chloride 0.9% 1000 Ml IV 12/07/16 20:52 999 mls/hr .Q1H1M STA Administration Sodium Chloride Confirm 12/07/16 20:09 Sodium Chloride 0.9% 1000 Ml Administered 12/07/16 20:10 Dose 1,000 mls @ ud .ROUTE .STK-MED ONE Morphine Sulfate 4 mg 12/07/16 19:52 12/07/16 20:12 Morphine Sulfate 4 Mg Inj IV 12/07/16 19:53 4 mg STAT ONE Administration Morphine Sulfate Confirm 12/07/16 20:09 Morphine Sulfate 4 Mg Inj Administered 12/07/16 20:10 Dose 4 mg .ROUTE .STK-MED ONE Morphine Sulfate 4 mg 12/07/16 22:29 12/07/16 22:32 Morphine Sulfate 4 Mg Inj IV 12/07/16 22:30 4 mg STAT ONE Administration Morphine Sulfate Confirm 12/07/16 22:31 Morphine Sulfate 4 Mg Inj Administered 12/07/16 22:32 Dose 4 mg .ROUTE .STK-MED ONE Ondansetron HCl 4 mg 12/07/16 19:52 12/07/16 20:12 Zofran 4 Mg/2 Ml Vial IV 12/07/16 19:53 4 mg STAT ONE Administration Ondansetron HCl Confirm 12/07/16 20:09 Zofran 4 Mg/2 Ml Vial Administered 12/07/16 20:10 Dose 4 mg .ROUTE .STK-MED ONE Lab/Rad Data: Laboratory Result Diagrams 12/07/16 20:49 12/07/16 20:49 Laboratory Results 12/07/16 12/07/1612/07/17 Range/Units 20:49 20:49 20:49 WBC 8.0 (4.0-10.5) K/mm3 RBC 4.73 (4.1-5.4) M/mm3 Hgb 14.3 (12.0-16.0) gm/dl Hct 41.5 (35-47) % MCV 87.7 (78-100) fl MCH 30.2 (26-32) pg MCHC 34.5 (32-36) g/dl RDW 14.3 H (11.5-14.0) % Plt Count 295 (150-450) K/mm3 MPV 9.3 (6-9.5) fl Gran % 58.4 (36.0-66.0) % Lymphocytes % 29.8 (24.0-44.0) % Monocytes % 8.2 (0.0-12.0) % Eosinophils % 3.1 (0.00-5.0) % Basophils % 0.5 (0.0-0.4) % Basophils # 0.04 (0-0.4) Sodium 135 L (136-145) mEq/L Potassium 3.7 (3.5-5.1) mEq/L Chloride 95 L (98-107) mEq/L Carbon Dioxide 28.9 (21-32) mEq/L Anion Gap 14.7 (5-15) MEQ/L BUN 21 H (9-20) mg/dL Creatinine 1.57 H (0.55-1.30) mg/dl Estimated GFR 37 ML/MIN Glucose 90 (70-110) MG/DL Lactic Acid (0.4-2.0) Calcium 10.0 (8.5-10.1) mg/dL Magnesium 1.7 L (1.8-2.4) mg/dL Total Bilirubin 0.6 (0.2-1.0) mg/dL AST 52 H (15-37) U/L ALT 76 (12-78) U/L Alkaline Phosphatase 231 H (46-116) U/L Serum Total Protein 9.2 H (6.4-8.2) gm/dL Albumin 4.4 (3.4-5.0) g/dL Lipase 340 (73-393) U/L Serum , Qual NEGATIVE (Negative) Ur Collection Type Urine Color (YELLOW) Urine Appearance (CLEAR) Urine pH (5-6) Ur Specific [place] (1.005-1.025) Urine Protein (Negative) Urine Glucose (UA) (NEGATIVE) mg/dL Urine Ketones (NEGATIVE) Urine Nitrite (NEGATIVE) Urine Bilirubin (NEGATIVE) Urine Urobilinogen (0-1) mg/dL Urine WBC (Auto) (NEGATIVE) Urine RBC (Auto) (0-5) Gregg/ul Urine Microscopic RBC (0-2) /HPF Urine Microscopic WBC (0-5) /HPF Ur Epithelial Cells (FEW) /HPF Urine Bacteria (NEGATIVE) /HPF Urine Yeast (NEGATIVE) /HPF Specimen Received 12/07/16 12/07/16 Range/Units 20:49 20:42 WBC (4.0-10.5) K/mm3 RBC (4.1-5.4) M/mm3 Hgb (12.0-16.0) gm/dl Hct (35-47) % MCV (78-100) fl MCH (26-32) pg MCHC (32-36) g/dl RDW (11.5-14.0) % Plt Count (150-450) K/mm3 MPV (6-9.5) fl Gran % (36.0-66.0) % Lymphocytes % (24.0-44.0) % Monocytes % (0.0-12.0) % Eosinophils % (0.00-5.0) % Basophils % (0.0-0.4) % Basophils # (0-0.4) Sodium (136-145) mEq/L Potassium (3.5-5.1) mEq/L Chloride (98-107) mEq/L Carbon Dioxide (21-32) mEq/L Anion Gap (5-15) MEQ/L BUN (9-20) mg/dL Creatinine (0.55-1.30) mg/dl Estimated GFR ML/MIN Glucose (70-110) MG/DL Lactic Acid 1.3 (0.4-2.0) Calcium (8.5-10.1) mg/dL Magnesium (1.8-2.4) mg/dL Total Bilirubin (0.2-1.0) mg/dL AST (15-37) U/L ALT (12-78) U/L Alkaline Phosphatase (46-116) U/L Serum Total Protein (6.4-8.2) gm/dL Albumin (3.4-5.0) g/dL Lipase (73-393) U/L Serum , Qual (Negative) Ur Collection Type CATH Urine Color YELLOW (YELLOW) Urine Appearance SLIGHTLY CLOUDY (CLEAR) Urine pH 5.5 (5-6) Ur Specific [place] 1.025 (1.005-1.025) Urine Protein 30 (Negative) Urine Glucose (UA) NEGATIVE (NEGATIVE) mg/dL Urine Ketones NEGATIVE (NEGATIVE) Urine Nitrite NEGATIVE (NEGATIVE) Urine Bilirubin SMALL (NEGATIVE) Urine Urobilinogen 0.2 (0-1) mg/dL Urine WBC (Auto) MODERATE (NEGATIVE) Urine RBC (Auto) MODERATE (0-5) Gregg/ul Urine Microscopic RBC 0-2 (0-2) /HPF Urine Microscopic WBC 15-25 (0-5) /HPF Ur Epithelial Cells MODERATE (FEW) /HPF Urine Bacteria FEW (NEGATIVE) /HPF Urine Yeast FEW (NEGATIVE) /HPF Specimen Received 12/07/162044 - Progress Progress: improved Discussed with : Adithya Will see patient in: hospital (observation) Counseled pt/family regarding: lab results, diagnosis, rad results - Departure Time of Disposition: 23:50 Departure Disposition: Observation Clinical Impression: Abdominal pain Condition: Stable Critical Care Time: No
[2016-12-07] MEDS ORDERED: MORPHINE SULFATE 4 MG INJ ONE ×2 (20:09→22:31)
[2016-12-07] MEDS ORDERED: Sodium Chloride 0.9% 1000 ML 1,000 ML ONE (20:09)
[2016-12-07] MEDS ORDERED: Zofran 4 MG/2 ML VIAL ONE (20:09)
[2016-12-07 21:10] LABS: BASOPHIL % 0.5 % (0.0-0.4); Eosinophil % 3.1 % (0.00-5.0); Granulocytes % 58.4 % (36.0-66.0); Lymphocytes % 29.8 % (24.0-44.0); Mean Cell Volume 87.7 fl (78-100); Mean Corpuscular Hemoglobin 30.2 pg (26-32); Mean Platelet Volume 9.3 fl (6-9.5); Monocytes % 8.2 % (0.0-12.0); Platelet Count 295 K/mm3 (150-450); Red Blood Count 4.73 M/mm3 (4.1-5.4); Red Cell Distribution Width 14.3 % (11.5-14.0)
[2016-12-07 21:16] LABS: Bacteria FEW /HPF (NEGATIVE); COMPLETE URINE MICROSCOPIC? YES; Collection Type CATH; Epithelial Cells MODERATE /HPF (FEW); Ph 5.5 (5-6); WBC 15-25 /HPF (0-5)
[2016-12-07 21:17] LABS: Yeast FEW /HPF (NEGATIVE)
[2016-12-07 21:18] LABS: ALBUMIN 4.4 g/dL (3.4-5.0); ANION GAP 14.7 MEQ/L (5-15); BILIRUBIN,TOTAL 0.6 mg/dL (0.2-1.0); Carbon Dioxide 28.9 mEq/L (21-32); MAGNESIUM 1.7 mg/dL (1.8-2.4); Potassium 3.7 mEq/L (3.5-5.1); Total Protein 9.2 gm/dL (6.4-8.2)
[2016-12-08] MEDS: Sodium Chloride 0.9% 1000 ML 1,000 ML IV SCH ×3 (00:32→18:10)
[2016-12-08] MEDS ORDERED: BENADRYL 25 MG CAPSULE PO PRN ×2 (01:18→10:50)
[2016-12-08] MEDS: Phenergan 25 MG INJ IV PRN ×2 (01:38→11:49)
[2016-12-08] MEDS: MORPHINE SULFATE 2 MG INJ IV PRN ×5 (05:18→22:45)
[2016-12-08 05:32] LABS: BASOPHIL % 0.5 % (0.0-0.4); Eosinophil % 4.2 % (0.00-5.0); Mean Cell Volume 89.5 fl (78-100); Mean Corpuscular Hemoglobin 29.9 pg (26-32); Mean Platelet Volume 9.3 fl (6-9.5); Monocytes % 7.3 % (0.0-12.0); Platelet Count 235 K/mm3 (150-450); Red Blood Count 4.21 M/mm3 (4.1-5.4); Red Cell Distribution Width 14.3 % (11.5-14.0); White Blood Count 5.8 K/mm3 (4.0-10.5)
[2016-12-08 05:46] LABS: ANION GAP 12.7 MEQ/L (5-15); Potassium 3.4 mEq/L (3.5-5.1)
[2016-12-08] MEDS: PROVENTIL COMMON CANISTER IH SCH ×4 (06:45→19:05)
[2016-12-08] MEDS: Flovent 110 Mcg COMMON CANISTER IH SCH ×2 (06:45→19:05)
--- NOTE | 2016-12-08 09:37 | XRAY ---
Indication: Abdominal pain. Comparison: December 04, 2016. KUB again nonacute and nonobstructed with cholecystectomy clips, right lower quadrant ostomy, and suprapubic catheter. Lung bases remain clear. No new/acute findings.
--- NOTE | 2016-12-08 09:43 | PCM.HP ---
History of Present Illness - Chief Complaint Chief Complaint: abd pain History of Present Illness: is a 51 year old female pt of mine from [facility] with shortgut syndrome, renal failure with chronic electrolyte imbalances, and suprapubic catheter. She was admitted here at [facility] 2 weeks with pancreatitis - she had increased epigastric pain and an elevated lipase. The lipase corrected but the pain worsened drastically one morning; CT abd/pelvis with dilated bowel loop and question of SBO. She was transferred to [place] where they did not think sh ehad an SBO and attributed the pain to the pancreatitis. She was kept for several days on IVF and CLD then discharged to home. She was not feeling well at home. She did try to advance her diet a little, to soft foods, which she says made no difference in her pain. She was feeling dizzy with decreased urination and called last night and I instructed her to come to the ER for evaluation. Her Mg was 1.7 and her Cr was 1.57. She was admitted with abdominal pain for further evaluation and IV fluids. She continues to have epigastric pain this morning. Has been tolerating clear liquids but she states "they go right through me" and she has been having quite a bit of output. - Review of Systems Genitourinary Symptoms: Other (decreased urine output) Neurological: Dizziness Medications & Allergies Home Medications: Home Medication List Hydrocodone/APAP 10/325 mg [[place] 10/325 MG Tablet] 1 tab PO 0500,1200, 1900 PRN 08/26/14 [History Confirmed 12/07/16] Paroxetine HCl [Paxil Cr] 25 mg PO 1200 11/15/15 [History Confirmed 12/07/16] Paroxetine HCl [Paxil Cr] 37.5 mg PO 0500 11/15/15 [History Confirmed 12/07/16] Diazepam [Valium] 10 mg PO TID 06/17/16 [History Confirmed 12/07/16] Doxylamine Succinate [Unisom] 25 mg PO HS 06/17/16 [History Confirmed 12/07/16] Promethazine HCl 25 mg [Phenergan 25 mg] 25 mg PO Q6HPRN PRN 06/17/16 [ History Confirmed 12/07/16] Albuterol Sulfate [Ventolin Hfa] 90 mcg IH QID PRN PRN 08/06/16 [History Confirmed 12/07/16] Fluticasone Propionate [Flovent Hfa] 110 mcg IH BID PRN PRN 08/06/16 [History Confirmed 12/07/16] Spironolactone 200 mg PO DAILY 08/27/16 [History Confirmed 12/07/16] Opium/Belladonna Alkaloids [Belladonna-Opium 16.2-30 Supp] 1 each RC DAILY 09/10 [History Confirmed 12/07/16] Solifenacin Succinate [Vesicare] 5 mg PO DAILY 11/07/16 [History Confirmed 12/07] Sulfamethoxazole/Trimethoprim [Bactrim Ds Tablet] 1 ea PO DAILY 11/07/16 [ History Confirmed 12/07/16] Pregabalin [Lyrica 150Mg] 150 mg PO BID 11/08/16 [History Confirmed 12/07/16] Cholestyramine (with Sugar) [Questran Packet] 4 gm PO BID PRN PRN 12/02/16 [ History Confirmed 12/07/16] Buspirone HCl [Buspar] 10 mg PO BID 12/03/16 [History Confirmed 12/07/16] Allergies/Adverse Reactions: Allergies Allergy/AdvReac Type Severity Reaction Status Date / Time oxybutynin Allergy Severe Verified 12/07/16 19:33 ampicillin Allergy Mild Verified 12/07/16 19:33 duloxetine [From Cymbalta] Allergy Mild Verified 12/07/16 19:33 erythromycin base Allergy Mild Verified 12/07/16 19:33 [Erythromycin Base] - Past Medical History Past Medical History: Yes Neurological History: Migraines ENT History: No Pertinent History Cardiac History: No Pertinent History Respiratory History: No Pertinent History Endocrine Medical History: No Pertinent History Musculoskelatal History: No Pertinent History GI Medical History: Colitis, Hepatitis, Other History: Other Pyscho-Social History: Anxiety, Depression Reproductive Disorders: No Pertinent History Comment: short gut syndrome,chronic diarrhea,small bowel bacterial overgrowth. hx bowel obstruction 04/03 and others stated in the past. stage 2 kidney disease - Female History Are you now?: No - Past Surgical History Past Surgical History: Yes Neuro Surgical History: No Pertinent History Cardiac History: No Pertinent History Respiratory Surgery: No Pertinent History GI Surgical History: Colon Resection, Other Genitourinary Surgical Hx: Other Musculskeletal Surgical Hx: No Pertinent History Female Surgical History: Hysterectomy Other Surgical History: 100cm small bowel removal and resection and colon and large bowel removed, bladder surgen with suprapubic catheter placed. stent in rt ureter ,bladder revision with larger stent - Social History Smoking Status: Current every day smoker How long have you smoked: 25 years Exposure to second hand smoke: Yes Alcohol: None Drug Use: none - Physical Exam Vital Signs: Vital Signs - 24 hr Temp Pulse Resp BP Pulse Ox 12/08/16 07:34 98.0 F 63 18 101/62 94 L 12/08/16 06:46 66 16 94 L 12/08/16 04:00 98.1 F 63 16 108/70 95 12/08/16 01:05 81 15 97 12/08/16 00:47 98.2 F 81 18 112/75 95 12/07/16 23:50 96 12/07/16 22:42 78 16 106/68 97 12/07/16 20:59 83 16 108/67 95 12/07/16 19:23 97.6 F 105 H 18 128/85 96 General Appearance: no apparent distress Neurologic Exam: alert, oriented x 3, cooperative Eye Exam: eyes nml inspection Neck Exam: normal inspection, non-tender, No lymphadenopathy Respiratory Exam: normal breath sounds, wheezing (faint bibasilar), No crackles/ rales, No rhonchi Cardiovascular Exam: regular rate/rhythm, normal heart sounds, No murmur Gastrointestinal/Abdomen Exam: soft, normal bowel sounds, tenderness (marked in epigastrum), other (ostomy present RLQ. suprapubic catheter present.), No distention Back Exam: normal inspection, No CVA tenderness Extremity Exam: normal inspection, No pedal edema, No swelling Skin Exam: normal color, warm, dry Results - Labs Lab/Micro Results: Lab Results-Last 24 Hours 12/08/16 12/08/16 12/08/16 Range/Units 05:10 05:10 05:15 WBC 5.8 (4.0-10.5) K/mm3 RBC 4.21 (4.1-5.4) M/mm3 Hgb 12.6 (12.0-16.0) gm/dl Hct 37.7 (35-47) % MCV 89.5 (78-100) fl MCH 29.9 (26-32) pg MCHC 33.4 (32-36) g/dl RDW 14.3 H (11.5-14.0) % Plt Count 235 (150-450) K/mm3 MPV 9.3 (6-9.5) fl Gran % 51.0 (36.0-66.0) % Lymphocytes % 37.0 (24.0-44.0) % Monocytes % 7.3 (0.0-12.0) % Eosinophils % 4.2 (0.00-5.0) % Basophils % 0.5 (0.0-0.4) % Basophils # 0.03 (0-0.4) Sodium 138 (136-145) mEq/L Potassium 3.4 L (3.5-5.1) mEq/L Chloride 100 (98-107) mEq/L Carbon Dioxide 29.0 (21-32) mEq/L Anion Gap 12.7 (5-15) MEQ/L BUN 18 (9-20) mg/dL Creatinine 1.27 (0.55-1.30) mg/dl Estimated GFR 47 ML/MIN Glucose 90 (70-110) MG/DL Calcium 9.1 (8.5-10.1) mg/dL Magnesium 1.7 L (1.8-2.4) mg/dL - Other Procedures and Tests Respiratory Therapy 12/08/16 07:00 Respiratory MDI BID Respiratory MDI QID Assessment/Plan (1) Abdominal pain Current Visit: Yes Status: Acute Assessment & Plan: Continues to have the epigastric pain. OK to try bland diet but advance very slowly. She sounds better to me here this morning, more conversant, than when I spoke with her on the phone last night. Code(s): R10.9 - UNSPECIFIED ABDOMINAL PAIN (2) Generalized weakness Current Visit: No Status: Acute Assessment & Plan: some dehydration. repleting. Code(s): R53.1 - WEAKNESS (3) Pancreatitis Current Visit: No Status: Acute Qualifiers: Chronicity: acute Pancreatitis type: unspecified pancreatitis type Acute pancreatitis complication: no infection or necrosis Qualified Code(s): K85.90 - Acute pancreatitis without necrosis or infection, unspecified Assessment & Plan: lipase had actually become normal before her transfer to . Code(s): K85.90 - ACUTE PANCREATITIS WITHOUT NECROSIS OR INFECTION, UNSP (4) Chronic kidney disease (CKD) stage G3a/A1, moderately decreased glomerular filtration rate (GFR) between 45-59 mL/min/1.73 square meter and albuminuria creatinine ratio less than 30 mg/g Current Visit: Yes Status: Chronic Assessment & Plan: will consult Dr. Orourke as he follows the patient very closely. Cr improved this morning from 1.57 on admission to 1.27. Code(s): N18.3 - CHRONIC KIDNEY DISEASE, STAGE 3 (MODERATE) (5) Hypomagnesemia Current Visit: No Status: Resolved Assessment & Plan: Actually fairly good for her on admission, was 1.7. Will recheck this morning from blood already in lab. Code(s): E83.42 - HYPOMAGNESEMIA
[2016-12-08] MEDS ORDERED: CHOLESTYRAMINE 4 GM PO PRN (10:51)
[2016-12-08] MEDS ORDERED: [UNRECOGNIZED DRUG - OTHER] PO PRN (10:51)
[2016-12-08] MEDS ORDERED: QUESTRAN Light 4 GM Packet PO PRN (10:54)
[2016-12-08] MEDS ORDERED: MEDICATION INTERVENTION MC PRN (10:59)
[2016-12-08] MEDS: Valium 5 MG PO SCH ×3 (12:00→21:26)
[2016-12-08] MEDS ORDERED: PAROXETINE HCL 25 MG PO SCH (12:00)
[2016-12-08] MEDS ORDERED: NON-FORMULARY ITEM (Diazepam [Valium] 10 MG) PO SCH (15:00)
[2016-12-08] MEDS: Paxil 12.5MG CR PO SCH (15:08)
[2016-12-08] MEDS: Aldactone 25 MG PO SCH (15:08)
[2016-12-08] MEDS: LYRICA 150MG PO SCH ×2 (15:09→21:26)
[2016-12-08] MEDS: BUSPAR 5 MG PO SCH ×2 (15:09→21:26)
[2016-12-08] MEDS: Zofran 4 MG/2 ML VIAL IV PRN (18:00)
[2016-12-08] MEDS ORDERED: NON-FORMULARY ITEM (Buspirone Hcl [Buspar] 10 MG) PO SCH (22:00)
[2016-12-09] MEDS: MORPHINE SULFATE 2 MG INJ IV PRN ×5 (02:47→20:40)
[2016-12-09] MEDS ORDERED: PAROXETINE HCL 37.5 MG PO SCH (05:00)
[2016-12-09] MEDS: Paxil 12.5MG CR PO SCH ×2 (05:35→11:33)
[2016-12-09] MEDS: Sodium Chloride 0.9% 1000 ML 1,000 ML IV SCH (06:18)
[2016-12-09] MEDS: PROVENTIL COMMON CANISTER IH SCH ×4 (07:22→19:37)
[2016-12-09] MEDS: Flovent 110 Mcg COMMON CANISTER IH SCH ×2 (07:23→19:38)
[2016-12-09] MEDS: Aldactone 25 MG PO SCH (08:19)
[2016-12-09] MEDS: BUSPAR 5 MG PO SCH ×2 (08:19→23:07)
[2016-12-09] MEDS: LYRICA 150MG PO SCH ×2 (08:20→23:07)
[2016-12-09] MEDS: Valium 5 MG PO SCH ×3 (08:21→23:13)
[2016-12-09] MEDS ORDERED: Magnesium Sulfate 1 GM/2 ML VIAL IV ONE (08:30)
[2016-12-09] MEDS ORDERED: Magnesium 1 Gm / 100 Ml D5W*** 100 ML IV ONE (08:30)
--- NOTE | 2016-12-09 09:04 | PCM.NOTE ---
Date and Time: 12/09/16900 Subjective Assessment: Feeling better, still having epigastric pain. She walked yesterday by herself. Jama bland diet. Concerned that her urine output has been low. - Review of Systems Constitutional: No Fever Abdominal/Gastrointestinal: Abdominal Pain Objective Exam General Appearance: no apparent distress Neurologic Exam: alert, oriented x 3, cooperative (cheerful) Skin Exam: normal color, warm, dry Respiratory Exam: normal breath sounds, lungs clear, No crackles/rales, No rhonchi, No wheezing Cardiovascular Exam: regular rate/rhythm, normal heart sounds, No murmur Gastrointestinal/Abdomen Exam: soft, normal bowel sounds, tenderness (marked in epigastrum), other (ostomy and suprapubic catheter present as usual), No distention, No mass, No rebound OBJECTIVE DATA Vital Signs: Vital Signs - 24 hr Temp Pulse Resp BP Pulse Ox 12/09/16 07:24 81 18 98 12/09/16 07:20 97.6 F 67 18 102/65 96 12/09/16 04:00 98.5 F 73 15 104/62 92 L 12/09/16 00:00 98.1 F 77 13 99/60 95 12/08/16 20:00 98.5 F 77 15 99/54 96 12/08/16 19:09 84 16 96 12/08/16 16:00 98.3 F 71 18 100/60 95 12/08/16 14:18 85 16 96 12/08/16 11:48 98.2 F 77 18 127/68 95 12/08/16 10:15 70 16 97 Pain Assessment - Last Documented Pain Intensity 8 Pain Scale Used 0-10 Pain Scale Intake and Output: Intake & Output 12/06/16 12/07/16 12/08/16 12/09/16 11:59 11:59 11:59 11:59 Intake Total 380 3783 Output Total 250 3030 Balance 130 753 Weight 65.453 kg Assessment/Plan (1) Abdominal pain Current Visit: Yes Status: Acute Assessment & Plan: Some improvement. Labs good this morning. Code(s): R10.9 - UNSPECIFIED ABDOMINAL PAIN (2) Generalized weakness Current Visit: No Status: Acute Assessment & Plan: Pt walking on her own; encouraged for today. Code(s): R53.1 - WEAKNESS (3) Pancreatitis Current Visit: No Status: Acute Qualifiers: Chronicity: acute Pancreatitis type: unspecified pancreatitis type Acute pancreatitis complication: no infection or necrosis Qualified Code(s): K85.90 - Acute pancreatitis without necrosis or infection, unspecified Assessment & Plan: tender, but improved. Code(s): K85.90 - ACUTE PANCREATITIS WITHOUT NECROSIS OR INFECTION, UNSP (4) Chronic kidney disease (CKD) stage G3a/A1, moderately decreased glomerular filtration rate (GFR) between 45-59 mL/min/1.73 square meter and albuminuria creatinine ratio less than 30 mg/g Current Visit: Yes Status: Chronic Assessment & Plan: Nephrology consulting today, thank you. Code(s): N18.3 - CHRONIC KIDNEY DISEASE, STAGE 3 (MODERATE) (5) Hypomagnesemia Current Visit: No Status: Resolved Assessment & Plan: Mg 1.7 this morning- 1 g IV magnesium now. Code(s): E83.42 - HYPOMAGNESEMIA
[2016-12-09] MEDS ORDERED: OPIUM RC SCH (10:00)
[2016-12-09] MEDS ORDERED: BELLADONNA ALKALOIDS RC SCH (10:00)
[2016-12-09] MEDS ORDERED: SPIRONOLACTONE 200 MG PO SCH (10:00)
[2016-12-09] MEDS ORDERED: MORPHINE SULFATE 2 MG INJ IV ONE (11:51)
--- NOTE | 2016-12-09 13:18 | XRAY ---
Indication: Retention. Suprapubic catheter. Two-dimensional urinary bladder ultrasound performed. Comparison: June 14, 2016. Urinary bladder is completely empty today. No evidence for retention or suspicious bladder mass.
[2016-12-09] MEDS ORDERED: Potassium Chloride 40 MEQ/20 ML VIAL 40 MEQ, Magnesium Sulfate 1 GM/2 ML VIAL*** 1 GM i... IV ONE ×3 (14:00)
[2016-12-09] MEDS: Phenergan 25 MG INJ IV PRN (14:01)
[2016-12-09] MEDS: Lactated Ringers 1,000 ML IV SCH (14:17)
--- NOTE | 2016-12-09 14:25 | CONS ---
CONSULT DATE: 12/09/2016 REASON FOR CONSULT: Evaluation of electrolytes and evaluation of renal function. HISTORY: Miss Jeanna Woods is a 51 year-old lady well known to me. The patient has had repeated hospitalizations because of acute kidney injury, dehydration, electrolyte imbalances because of dumping syndrome/short gut syndrome. The patient was in fact here in the hospital seen by our service last week. She was transferred to [facility] and was diagnosed with questionable pancreatitis. The patient was readmitted through the emergency room with chief complaint of abdominal pain, nausea, suprapubic pain and feeling dehydrated. She then had vomiting. She reportedly had decreased urine output. Creatinine was 1.55 mg. A renal consultation was called. REVIEW OF SYSTEMS: The patient said that she is having some suprapubic discomfort. She has a suprapubic catheter. She also has some cramps. She denies any fever, chills or rigors and decrease in urine output has been present. Otherwise appetite has been fair. Denies any progressive leg swelling. Denies any shortness of breath. Denies any chest pain. Colostomy output is somewhat on the high side. She is awaiting intestinal transplant. All systems were reviewed in details. Pertinent mentioned here and in history of present illness, the rest was negative. PAST MEDICAL HISTORY: 1) Chronic kidney disease stage III because of repeated episodes of dehydration and acute kidney injury. 2) Short gut syndrome. 3) Repeated admission for abdominal pain and dehydration. 4) Hypomagnesemia. 5) Hypokalemia. PAST SURGICAL HISTORY: Abdominal surgery, colectomy, suprapubic catheter surgery. MEDICATIONS: Medications reviewed and noted. Hospital medications were reviewed. ALLERGIES: OXYBUTYNIN, DULOXETINE, ERTHROMYCIN, AMPICILLIN. FAMILY HISTORY: No history of renal problems in the family. PHYSICAL EXAMINATION: Reveals a lady upright in bed. Vital signs were reviewed. Blood pressure was noted to be 104/62, pulse rate 73/minute, respiratory rate 15/minute, afebrile. HEENT: Normocephalic, atraumatic. Pale conjunctivae. NECK: Supple. CHEST: Clear. HEART: S1, S2 normal. ABDOMEN: Soft, nontender. No organomegaly. EXTREMITIES: No cyanosis, clubbing or edema. SKIN: No skin rash. Skin turgor is normal. MUSCULOSKELETAL: No acute joint swelling, redness or tenderness. NEUROLOGIC: Nonfocal.exam. Alert, awake, oriented x3. LAB DATA AND TESTS: Labs were reviewed. Magnesium was 1.7, potassium 3.4, creatinine 1.25 mg%. All of the tests were reviewed. ASSESSMENT: 1) ACUTE KIDNEY INJURY, MILD COMPONENT. Could be because of dehydration. Usually her creatinine fluctuates from 1.2 to 1.5 mg% depending on the fluid status. Continue hydration with IV fluids. No evidence of any urine retention. 2) ABDOMINAL PAIN/SUPRAPUBIC DISCOMFORT: Repeat urine culture. Last UA had some yeast. Recently she had been treated for urinary tract infection with Cipro. We will do Diflucan 50 mg IV daily for three days. She will follow up with urology for changing her suprapubic catheter. I think this could be a subjective feeling or irritation because of catheter. If not fungal urinary tract infection this may be subjective feeling and other causes need to be ruled out. Once urine cultures are positive or negative we will discontinue Diflucan or may increase the course up to a week. We will watch for any signs or symptoms of pancreatitis. 3) HYPOMAGNESEMIA: Replace 1 gm of magnesium additional to 1 gm already given, total 2 gm. 4) HYPOKALEMIA: Give potassium chloride 40 mEq daily etiology is because of GI loss. 5) DEHYDRATION: Continue IV fluid, finish the Ringer's lactate at 25 cc/hour. Other urine culture readings were taken because of present medications.
[2016-12-09] MEDS ORDERED: [UNRECOGNIZED DRUG - OTHER] IV SCH (16:00)
[2016-12-09] MEDS ORDERED: FLUCONAZOLE IV SCH (16:00)
[2016-12-09] MEDS ORDERED: SODIUM CHLORIDE IV SCH (16:00)
[2016-12-09] MEDS: Zofran 4 MG/2 ML VIAL IV PRN (23:12)
[2016-12-10] MEDS: MORPHINE SULFATE 2 MG INJ IV PRN ×3 (02:01→11:50)
[2016-12-10] MEDS: Lactated Ringers 1,000 ML IV SCH ×2 (04:23→18:19)
[2016-12-10] MEDS: Paxil 12.5MG CR PO SCH ×2 (05:48→11:58)
[2016-12-10 06:44] LABS: BASOPHIL % 0.3 % (0.0-0.4); Eosinophil % 4.6 % (0.00-5.0); Granulocytes % 61.9 % (36.0-66.0); Lymphocytes % 24.8 % (24.0-44.0); Mean Cell Volume 93.8 fl (78-100); Mean Platelet Volume 9.4 fl (6-9.5); Monocytes % 8.4 % (0.0-12.0); Platelet Count 216 K/mm3 (150-450); Red Blood Count 3.06 M/mm3 (4.1-5.4); Red Cell Distribution Width 14.6 % (11.5-14.0)
[2016-12-10] MEDS: Flovent 110 Mcg COMMON CANISTER IH SCH ×2 (07:03→19:06)
[2016-12-10] MEDS: PROVENTIL COMMON CANISTER IH SCH ×2 (07:03→19:06)
--- NOTE | 2016-12-10 08:52 | PCM.NOTE ---
Date and Time: 12/10/16 0848 Subjective Assessment: Feeling better, out of bed eating her CLD. Abd pain is somewhat better. Dr. Orourke started her on IV diflucan last night. - Review of Systems Constitutional: No Fever Abdominal/Gastrointestinal: Abdominal Pain Objective Exam General Appearance: no apparent distress Neurologic Exam: alert, oriented x 3, cooperative Skin Exam: normal color, warm, dry Respiratory Exam: normal breath sounds, lungs clear, wheezing (faint scattered) , No crackles/rales, No rhonchi Cardiovascular Exam: regular rate/rhythm, normal heart sounds, No murmur Gastrointestinal/Abdomen Exam: soft, normal bowel sounds, tenderness (epigastrum ), No rebound OBJECTIVE DATA Vital Signs: Vital Signs - 24 hr Temp Pulse Resp BP Pulse Ox 12/10/16 07:58 100.4 F 89 20 103/59 97 12/10/16 07:05 85 18 97 12/10/16 00:00 98.6 F 77 19 84/51 96 12/09/16 20:00 98.7 F 79 21 95/53 96 12/09/16 19:47 82 18 96 12/09/16 15:57 98.4 F 81 18 119/73 97 12/09/16 14:58 83 18 96 12/09/16 11:39 98.4 F 82 18 104/58 98 12/09/16 10:41 81 18 97 Pain Assessment - Last Documented Pain Intensity 6 Pain Scale Used 0-10 Pain Scale Intake and Output: Intake & Output 12/07/16 12/08/16 12/09/16 12/10/16 11:59 11:59 11:59 11:59 Intake Total 380 4023 3762 Output Total 250 3030 4425 Balance 130 993 -663 Weight 65.453 kg Lab Results: Lab Results-Last 24 Hours 12/10/16 Range/Units 05:58 WBC 6.0 (4.0-10.5) K/mm3 RBC 3.06 L (4.1-5.4) M/mm3 Hgb 9.2 L (12.0-16.0) gm/dl Hct 28.7 L (35-47) % MCV 93.8 (78-100) fl MCH 30.0 (26-32) pg MCHC 32.1 (32-36) g/dl RDW 14.6 H (11.5-14.0) % Plt Count 216 (150-450) K/mm3 MPV 9.4 (6-9.5) fl Gran % 61.9 (36.0-66.0) % Lymphocytes % 24.8 (24.0-44.0) % Monocytes % 8.4 (0.0-12.0) % Eosinophils % 4.6 (0.00-5.0) % Basophils % 0.3 (0.0-0.4) % Basophils # 0.02 (0-0.4) Radiology Exams: Radiology Procedures Category Date Time Status BLADDER [US] Urgent Exams 12/09/16 11:52 Completed Multi-Disciplinary Progress Notes: Multi-Disciplinary Progress Notes 12/09/16 12:09 Case Management Note by Ninfa Hardin GAVE MEDICARE OUTPATIENT OBS NOTICE PT SIGNED AND COPT TO PT ;AND COPY PLACED ON CHART Initialized on 12/09/16 12:09 - END OF NOTE Assessment/Plan (1) Abdominal pain Current Visit: Yes Status: Acute Assessment & Plan: Improved. Dr. Orourke started her on IV diflucan for question of fungal infection of the bladder. She certainly is improving. She is also on CLD and will leave her on this until tomorrow. Plan is to give todays' dose of diflucan a little early, tomorrow's late morning or at noon and then she can d/c and go to get her catheter changed (suprapubic). Code(s): R10.9 - UNSPECIFIED ABDOMINAL PAIN (2) Generalized weakness Current Visit: No Status: Acute Assessment & Plan: improved. Code(s): R53.1 - WEAKNESS (3) Pancreatitis Current Visit: No Status: Acute Qualifiers: Chronicity: acute Pancreatitis type: unspecified pancreatitis type Acute pancreatitis complication: no infection or necrosis Qualified Code(s): K85.90 - Acute pancreatitis without necrosis or infection, unspecified Assessment & Plan: feeling better. CLD. Code(s): K85.90 - ACUTE PANCREATITIS WITHOUT NECROSIS OR INFECTION, UNSP (4) Chronic kidney disease (CKD) stage G3a/A1, moderately decreased glomerular filtration rate (GFR) between 45-59 mL/min/1.73 square meter and albuminuria creatinine ratio less than 30 mg/g Current Visit: Yes Status: Chronic Assessment & Plan: per Dr. Orourke, thank you. Code(s): N18.3 - CHRONIC KIDNEY DISEASE, STAGE 3 (MODERATE) (5) Hypomagnesemia Current Visit: No Status: Resolved Assessment & Plan: Recheck in a.m. Code(s): E83.42 - HYPOMAGNESEMIA (6) Anemia Current Visit: No Status: Chronic Qualifiers: Anemia type: iron deficiency Assessment & Plan: likely dilutional here Code(s): D64.9 - ANEMIA, UNSPECIFIED
[2016-12-10 08:58] LABS: ALBUMIN 2.9 g/dL (3.4-5.0); ALKALINE PHOSPHATASE 143 U/L (46-116); ANION GAP 11.7 MEQ/L (5-15); BILIRUBIN,TOTAL 0.5 mg/dL (0.2-1.0); BLOOD UREA NITROGEN 6 mg/dL (9-20); CHLORIDE 103 mEq/L (98-107); Glucose 90 MG/DL (70-110); MAGNESIUM 1.9 mg/dL (1.8-2.4); Potassium 4.5 mEq/L (3.5-5.1); SGOT/AST 26 U/L (15-37); SGPT/ALT 44 U/L (12-78); SODIUM 137 mEq/L (136-145); Total Protein 6.3 gm/dL (6.4-8.2)
[2016-12-10] MEDS: Valium 5 MG PO SCH ×3 (09:50→22:34)
[2016-12-10] MEDS: BUSPAR 5 MG PO SCH ×2 (09:50→22:34)
[2016-12-10] MEDS: LYRICA 150MG PO SCH ×2 (09:51→22:34)
[2016-12-10] MEDS: Aldactone 25 MG PO SCH (09:55)
[2016-12-10] MEDS: Zofran 4 MG/2 ML VIAL IV PRN (11:48)
[2016-12-10] MEDS: MORPHINE SULFATE 10 MG/ML IV PRN ×2 (15:56→20:16)
[2016-12-10] MEDS ORDERED: SODIUM CHLORIDE IV SCH (16:00)
[2016-12-10] MEDS ORDERED: [UNRECOGNIZED DRUG - OTHER] IV SCH (16:00)
[2016-12-10] MEDS ORDERED: FLUCONAZOLE IV SCH (16:00)
[2016-12-11] MEDS: MORPHINE SULFATE 10 MG/ML IV PRN ×5 (00:12→17:05)
[2016-12-11] MEDS: Paxil 12.5MG CR PO SCH ×2 (04:35→13:00)
[2016-12-11 05:57] LABS: BASOPHIL % 0.5 % (0.0-0.4); Eosinophil % 5.7 % (0.00-5.0); Granulocytes % 52.9 % (36.0-66.0); Lymphocytes % 34.1 % (24.0-44.0); Mean Cell Volume 94.3 fl (78-100); Mean Platelet Volume 9.7 fl (6-9.5); Monocytes % 6.8 % (0.0-12.0); Platelet Count 224 K/mm3 (150-450); Red Blood Count 3.18 M/mm3 (4.1-5.4); Red Cell Distribution Width 14.5 % (11.5-14.0)
[2016-12-11 05:59] LABS: Mean Corpuscular Hemoglobin 30.1 pg (26-32)
[2016-12-11 06:45] LABS: ANION GAP 11.1 MEQ/L (5-15); Carbon Dioxide 27.5 mEq/L (21-32); MAGNESIUM 1.5 mg/dL (1.8-2.4); Potassium 3.7 mEq/L (3.5-5.1)
[2016-12-11] MEDS: PROVENTIL COMMON CANISTER IH SCH ×4 (07:12→19:24)
[2016-12-11] MEDS: Flovent 110 Mcg COMMON CANISTER IH SCH ×2 (07:13→19:24)
[2016-12-11] MEDS: Lactated Ringers 1,000 ML IV SCH ×2 (07:56→23:07)
[2016-12-11] MEDS: Aldactone 25 MG PO SCH (09:15)
[2016-12-11] MEDS: BUSPAR 5 MG PO SCH ×2 (09:15→22:52)
[2016-12-11] MEDS: Valium 5 MG PO SCH ×3 (09:16→22:53)
[2016-12-11] MEDS: LYRICA 150MG PO SCH ×2 (09:16→22:53)
[2016-12-11] MEDS ORDERED: Magnesium Sulfate 1 GM/2 ML VIAL IV ONE (10:20)
[2016-12-11] MEDS: Magnesium 1 Gm / 100 Ml D5W*** 100 ML IV SCH ×2 (10:55→11:36)
--- NOTE | 2016-12-11 11:14 | PCM.NOTE ---
Date and Time: 12/11/16 1111 Subjective Assessment: She is feeling better today but is still on CLD. Epigastrum is still "sore." Urine output is good. - Review of Systems Constitutional: No Fever Abdominal/Gastrointestinal: Abdominal Pain Objective Exam General Appearance: no apparent distress Neurologic Exam: alert, oriented x 3, cooperative Skin Exam: normal color, warm, dry Respiratory Exam: normal breath sounds, lungs clear, No crackles/rales, No rhonchi, No wheezing Cardiovascular Exam: regular rate/rhythm, normal heart sounds, No murmur Gastrointestinal/Abdomen Exam: soft, tenderness (throughout, but most notably in epigastrum), other (RLQ ostomy and suprapubic catheter) Extremity Exam: No pedal edema, No swelling Back Exam: normal inspection OBJECTIVE DATA Vital Signs: Vital Signs - 24 hr Temp Pulse Resp BP Pulse Ox 12/11/16 07:13 72 16 94 L 12/11/16 07:06 98.7 F 76 20 112/57 98 12/11/16 04:00 97.8 F 71 14 112/70 98 12/11/16 00:00 97.8 F 69 14 104/55 97 12/10/16 20:00 98.2 F 87 14 103/66 96 12/10/16 19:09 72 18 96 12/10/16 16:00 98.6 F 85 22 123/79 97 12/10/16 15:24 78 18 96 12/10/16 12:00 98.7 F 76 20 100/55 95 Pain Assessment - Last Documented Pain Intensity 7 Pain Scale Used 0-10 Pain Scale Intake and Output: Intake & Output 12/08/16 12/09/16 12/10/16 12/11/16 11:59 11:59 11:59 11:59 Intake Total 4242 3302 Output Total 4475 1505 Balance -183 127 Lab Results: Lab Results-Last 24 Hours 12/11/16 12/11/16 Range/Units 05:10 05:10 WBC 6.0 (4.0-10.5) K/mm3 RBC 3.18 L (4.1-5.4) M/mm3 Hgb 9.6 L (12.0-16.0) gm/dl Hct 30.0 L (35-47) % MCV 94.3 (78-100) fl MCH 30.1 (26-32) pg MCHC 32.0 (32-36) g/dl RDW 14.5 H (11.5-14.0) % Plt Count 224 (150-450) K/mm3 MPV 9.7 H (6-9.5) fl Gran % 52.9 (36.0-66.0) % Lymphocytes % 34.1 (24.0-44.0) % Monocytes % 6.8 (0.0-12.0) % Eosinophils % 5.7 H (0.00-5.0) % Basophils % 0.5 (0.0-0.4) % Basophils # 0.03 (0-0.4) Sodium 139 (136-145) mEq/L Potassium 3.7 (3.5-5.1) mEq/L Chloride 104 (98-107) mEq/L Carbon Dioxide 27.5 (21-32) mEq/L Anion Gap 11.1 (5-15) MEQ/L BUN 4 L (9-20) mg/dL Creatinine 1.06 (0.55-1.30) mg/dl Estimated GFR 58 ML/MIN Glucose 102 (70-110) MG/DL Calcium 8.3 L (8.5-10.1) mg/dL Magnesium 1.5 L (1.8-2.4) mg/dL Radiology Exams: Radiology Procedures Category Date Time Status BLADDER [US] Urgent Exams 12/09/16 11:52 Completed Assessment/Plan (1) Abdominal pain Current Visit: Yes Status: Acute Assessment & Plan: Much improved but still somewhat present. Will try advancing diet today, if she tolerates it overnight will likely d/c home in the morning. Differential includes clinical pancreatitis and fungal infection of the bladder - she is being treated for both. Code(s): R10.9 - UNSPECIFIED ABDOMINAL PAIN (2) Chronic kidney disease (CKD) stage G3a/A1, moderately decreased glomerular filtration rate (GFR) between 45-59 mL/min/1.73 square meter and albuminuria creatinine ratio less than 30 mg/g Current Visit: Yes Status: Chronic Assessment & Plan: much improved, Cr this .m. 1.06. Per Dr. Orourke, thank you! Code(s): N18.3 - CHRONIC KIDNEY DISEASE, STAGE 3 (MODERATE) (3) Generalized weakness Current Visit: No Status: Acute Assessment & Plan: much improved, walking independently without issues. Code(s): R53.1 - WEAKNESS (4) Pancreatitis Current Visit: No Status: Acute Qualifiers: Chronicity: acute Pancreatitis type: unspecified pancreatitis type Acute pancreatitis complication: no infection or necrosis Qualified Code(s): K85.90 - Acute pancreatitis without necrosis or infection, unspecified Assessment & Plan: last amylase/lipase wnl. Code(s): K85.90 - ACUTE PANCREATITIS WITHOUT NECROSIS OR INFECTION, UNSP (5) Hypomagnesemia Current Visit: No Status: Resolved Assessment & Plan: recheck in a.m. today was 1.5, 2g IV given. Code(s): E83.42 - HYPOMAGNESEMIA (6) Anemia Current Visit: No Status: Chronic Qualifiers: Anemia type: iron deficiency Assessment & Plan: Stable, I think the initial drop in Hgb was dilutional. Code(s): D64.9 - ANEMIA, UNSPECIFIED
[2016-12-11] MEDS ORDERED: [UNRECOGNIZED DRUG - OTHER] IV SCH (12:00)
[2016-12-11] MEDS ORDERED: FLUCONAZOLE IV SCH (12:00)
[2016-12-11] MEDS ORDERED: SODIUM CHLORIDE IV SCH (12:00)
[2016-12-12] MEDS: MORPHINE SULFATE 10 MG/ML IV PRN ×6 (03:49→22:53)
[2016-12-12 05:37] LABS: BASOPHIL % 0.4 % (0.0-0.4); Eosinophil % 4.8 % (0.00-5.0); Granulocytes % 68.2 % (36.0-66.0); Lymphocytes % 21.8 % (24.0-44.0); Mean Cell Volume 93.5 fl (78-100); Mean Corpuscular Hemoglobin 29.9 pg (26-32); Mean Platelet Volume 9.4 fl (6-9.5); Monocytes % 4.8 % (0.0-12.0); Platelet Count 222 K/mm3 (150-450); Red Blood Count 3.24 M/mm3 (4.1-5.4); Red Cell Distribution Width 14.2 % (11.5-14.0)
[2016-12-12 05:53] LABS: ANION GAP 10.6 MEQ/L (5-15); Carbon Dioxide 28.6 mEq/L (21-32); MAGNESIUM 1.9 mg/dL (1.8-2.4); Potassium 4.2 mEq/L (3.5-5.1)
[2016-12-12] MEDS: Paxil 12.5MG CR PO SCH ×2 (06:00→11:54)
[2016-12-12] MEDS: PROVENTIL COMMON CANISTER IH SCH ×6 (07:36→23:07)
[2016-12-12] MEDS: Flovent 110 Mcg COMMON CANISTER IH SCH ×2 (07:36→23:07)
[2016-12-12] MEDS: Valium 5 MG PO SCH ×3 (09:46→22:53)
[2016-12-12] MEDS: LYRICA 150MG PO SCH ×2 (09:47→22:53)
[2016-12-12] MEDS: BUSPAR 5 MG PO SCH ×2 (09:47→22:53)
[2016-12-12] MEDS: Aldactone 25 MG PO SCH (09:53)
--- NOTE | 2016-12-12 10:02 | PCM.NOTE ---
Date and Time: 12/12/1657 Subjective Assessment: She started having increased abd pain at 4 am, requested pain meds x 1. she at 100% of bland diet yesterday for lunch and supper. Good output through ostomy. Last CT abd/pelvis on 12/04/16. Objective Exam General Appearance: no apparent distress, other (cries at one point) Neurologic Exam: alert, oriented x 3, cooperative Skin Exam: normal color, warm, dry Respiratory Exam: normal breath sounds, lungs clear, No crackles/rales, No rhonchi, No wheezing Cardiovascular Exam: regular rate/rhythm, normal heart sounds, No murmur Gastrointestinal/Abdomen Exam: soft, tenderness (throughout, worse in), other ( ostomy in RLQ and suprapubic catheter present) Extremity Exam: No pedal edema, No swelling OBJECTIVE DATA Vital Signs: Vital Signs - 24 hr Temp Pulse Resp BP Pulse Ox 12/12/16 07:37 84 18 95 12/12/16 07:15 98.6 F 74 19 101/53 94 L 12/12/16 04:00 97.6 F 74 18 112/62 94 L 12/12/16 00:00 97.6 F 74 16 97/58 92 L 12/11/16 20:00 98.2 F 76 16 100/55 92 L 12/11/16 19:28 75 16 93 L 12/11/16 16:18 98.7 F 82 18 102/59 96 12/11/16 15:22 66 14 93 L 12/11/16 12:17 98.8 F 78 20 104/58 96 12/11/16 10:57 66 16 93 L Pain Assessment - Last Documented Pain Intensity 10 Pain Scale Used 0-10 Pain Scale Intake and Output: Intake & Output 12/09/16 12/10/16 12/11/16 12/12/16 11:59 11:59 11:59 11:59 Intake Total 4245 3302 3841 Output Total 4472 5925 7795 Balance -183 127 466 Lab Results: Lab Results-Last 24 Hours 12/12/16 12/12/16 Range/Units 05:05 05:05 WBC 5.0 (4.0-10.5) K/mm3 RBC 3.24 L (4.1-5.4) M/mm3 Hgb 9.7 L (12.0-16.0) gm/dl Hct 30.3 L (35-47) % MCV 93.5 (78-100) fl MCH 29.9 (26-32) pg MCHC 32.0 (32-36) g/dl RDW 14.2 H (11.5-14.0) % Plt Count 222 (150-450) K/mm3 MPV 9.4 (6-9.5) fl Gran % 68.2 H (36.0-66.0) % Lymphocytes % 21.8 L (24.0-44.0) % Monocytes % 4.8 (0.0-12.0) % Eosinophils % 4.8 (0.00-5.0) % Basophils % 0.4 (0.0-0.4) % Basophils # 0.02 (0-0.4) Sodium 141 (136-145) mEq/L Potassium 4.2 (3.5-5.1) mEq/L Chloride 106 (98-107) mEq/L Carbon Dioxide 28.6 (21-32) mEq/L Anion Gap 10.6 (5-15) MEQ/L BUN 5 L (9-20) mg/dL Creatinine 1.09 (0.55-1.30) mg/dl Estimated GFR 56 ML/MIN Glucose 98 (70-110) MG/DL Calcium 8.8 (8.5-10.1) mg/dL Magnesium 1.9 (1.8-2.4) mg/dL Multi-Disciplinary Progress Notes: Multi-Disciplinary Progress Notes 12/12/16 07:59 Case Management Note by GT ROUSSEAU PT VERY UPSET THIS MORNING, STILL HAVING ABDOMINAL PAIN. PT STATES SHE HAS AN APPT AT [facility] TO GET HER OSTOMY TUBE CHANGED TODAY AT 1535. PT DENIES ANY ADDITIONAL NEEDS AT DC AT THIS TIME. PT GETS INFUSIONS 3 TIMES A WEEK AND HAS FRIENDS AND BOY FRIEND THAT HELPS HER AT HOME. IMPORTANT MESSAGE FROM MEDICARE GIVEN TO PT. WILL CONTINUE TO MONITOR DC NEEDS. Initialized on 12/12/16 07:59 - END OF NOTE 12/11/16 12:17 Case Management Note by Ninfa Hardin CONT TO MONITOR ANY DC NEED. Initialized on 12/11/16 12:17 - END OF NOTE Assessment/Plan (1) Abdominal pain Current Visit: Yes Status: Acute Assessment & Plan: worsened. Will back off on diet, specific instructions given in EMR and to pt to only eat 1/2 c total at each meal, is to be apple sauce, mashed potatoes, oatmeal, plain rice, crackers, or some combination. Will also add flagyl, was a question of enteritis on last CT. WBC have been nl. Code(s): R10.9 - UNSPECIFIED ABDOMINAL PAIN (2) Chronic kidney disease (CKD) stage G3a/A1, moderately decreased glomerular filtration rate (GFR) between 45-59 mL/min/1.73 square meter and albuminuria creatinine ratio less than 30 mg/g Current Visit: Yes Status: Chronic Assessment & Plan: improved on IVF. Code(s): N18.3 - CHRONIC KIDNEY DISEASE, STAGE 3 (MODERATE) (3) Generalized weakness Current Visit: Yes Status: Acute Code(s): R53.1 - WEAKNESS (4) Pancreatitis Current Visit: No Status: Acute Qualifiers: Chronicity: acute Pancreatitis type: unspecified pancreatitis type Acute pancreatitis complication: no infection or necrosis Qualified Code(s): K85.90 - Acute pancreatitis without necrosis or infection, unspecified Assessment & Plan: as above Code(s): K85.90 - ACUTE PANCREATITIS WITHOUT NECROSIS OR INFECTION, UNSP (5) Hypomagnesemia Current Visit: No Status: Resolved Assessment & Plan: mg 1.9 this morning. Code(s): E83.42 - HYPOMAGNESEMIA (6) Anemia Current Visit: No Status: Chronic Qualifiers: Anemia type: iron deficiency Assessment & Plan: stable Code(s): D64.9 - ANEMIA, UNSPECIFIED
[2016-12-12] MEDS: Lactated Ringers 1,000 ML IV SCH ×2 (11:54→23:14)
[2016-12-12] MEDS: FLAGYL 500 MG IVPB 100 ML IV SCH ×3 (11:56→23:19)
[2016-12-13] MEDS: FLAGYL 500 MG IVPB 100 ML IV SCH (05:11)
[2016-12-13] MEDS: Paxil 12.5MG CR PO SCH ×2 (05:45→11:53)
[2016-12-13] MEDS: MORPHINE SULFATE 10 MG/ML IV PRN ×3 (06:03→12:04)
[2016-12-13] MEDS: Flovent 110 Mcg COMMON CANISTER IH SCH (06:55)
[2016-12-13] MEDS: PROVENTIL COMMON CANISTER IH SCH ×2 (06:55→10:58)
[2016-12-13 08:37] LABS: BASOPHIL % 0.3 % (0.0-0.4); Eosinophil % 4.1 % (0.00-5.0); Granulocytes % 64.1 % (36.0-66.0); Lymphocytes % 26.1 % (24.0-44.0); Mean Cell Volume 92.8 fl (78-100); Mean Platelet Volume 9.2 fl (6-9.5); Monocytes % 5.4 % (0.0-12.0); Platelet Count 237 K/mm3 (150-450); Red Blood Count 3.49 M/mm3 (4.1-5.4); Red Cell Distribution Width 14.1 % (11.5-14.0); White Blood Count 6.3 K/mm3 (4.0-10.5)
[2016-12-13] MEDS: BUSPAR 5 MG PO SCH (09:04)
[2016-12-13] MEDS: Valium 5 MG PO SCH ×2 (09:05→14:45)
[2016-12-13] MEDS: Aldactone 25 MG PO SCH (09:05)
[2016-12-13] MEDS: LYRICA 150MG PO SCH (09:06)
[2016-12-13 09:08] LABS: ALBUMIN 3.1 g/dL (3.4-5.0); ANION GAP 10.2 MEQ/L (5-15); BILIRUBIN,TOTAL 0.4 mg/dL (0.2-1.0); Carbon Dioxide 30.4 mEq/L (21-32); MAGNESIUM 1.6 mg/dL (1.8-2.4); Total Protein 7.3 gm/dL (6.4-8.2)
[2016-12-13] MEDS ORDERED: Magnesium Sulfate 1 GM/2 ML VIAL IV ONE (09:30)
[2016-12-13] MEDS ORDERED: Norco 10/325 MG Tablet PO PRN (09:41)
[2016-12-13] MEDS: Magnesium 1 Gm / 100 Ml D5W*** 100 ML IV SCH ×2 (10:44→11:49)
[2016-12-13 12:29] VITALS: BP 107/63; PULSE 108; O2SAT 93
== END 2016-12-13 15:05 | disposition home or self-care (01) | DRG 391 ==
LOC: ED 19:14 → MED SURG 12-08 00:01 → OBSVTOIN 12-09 09:01
PROVIDERS: ADMIT Family Medicine; ATTEND Family Medicine
DX: R10.9 Unspecified abdominal pain (principal); K85.90 Acute pancreatitis without necrosis or infection, unspecified; K91.2 Postsurgical malabsorption, not elsewhere classified; R53.1 Weakness; N18.3 Chronic kidney disease, stage 3 (moderate); E87.6 Hypokalemia; E86.0 Dehydration; E83.42 Hypomagnesemia; D64.9 Anemia, unspecified
CPT/HCPCS: 36000; 36415; 74000; 76705; 80048; 80053; 81000; 83605; 83690; 83735; 84703; 85025; 87086; 94640; 94760; 96374; 96375; 96376; 99285; G0378; J1450; J1642; J2270; J2405; J2550; J3475; J3480; A9270-GY

== ENCOUNTER 2016-12-24 09:09 | Emergency (ER) | payer MEDICARE ==
[2016-12-24] MEDS ORDERED: Pepcid 20 MG VIAL IV ONE ×2 (09:50→10:02)
[2016-12-24] MEDS ORDERED: Hydromorphone 1 mg/ml Ampule IV ONE ×2 (09:50→11:54)
[2016-12-24] MEDS ORDERED: THORAZINE 50 MG*** 50 MG in Sodium Chloride 0.9% 100 ML IVPB 100 ML IV ONE (09:58)
[2016-12-24] MEDS ORDERED: Lactated Ringers 1,000 ML IV ONE ×2 (09:58→10:03)
[2016-12-24] MEDS ORDERED: Hydromorphone 1 mg/ml Ampule ONE ×2 (10:03→11:59)
--- NOTE | 2016-12-24 10:04 | ERPHSYRPT ---
- History of Present Illness Time Seen by Provider: 12/24/16 09:43 Historian: patient, family Physician History: CC: abd pain Hx: 51 y/o patient of Dr Haji. She has chronic pancreatitis. She has hx of renal insufficiency. She has chronic pain and nausea. She has been admitted frequently for exacerbations of pain, electrolyte imbalance, and nausea. She had endoscopic ultrasound of the pancreas last night per Dr Castle and has plans for new treatment regimen. Pain and nausea worse so came to ER this AM after speaking to Dr Haji. No fever or chills. No headache. No chest pain. Timing/Duration: worse Severity of Pain-Max: severe Severity of Pain-Current: severe Allergies/Adverse Reactions: oxybutynin Allergy (Severe, Verified 12/24/16 10:04) pharyngeal swelling ampicillin Allergy (Mild, Verified 12/24/16 10:04) hives duloxetine [From Cymbalta] Allergy (Mild, Verified 12/24/16 10:04) nausea erythromycin base [Erythromycin Base] Allergy (Mild, Verified 12/24/16 10:04) Hives Home Medications: Ascorbic Acid [Vitamin C] 1,000 mg PO DAILY 12/24/16 [History] Cholecalciferol (Vitamin D3) [Vitamin D] 2,000 iu PO DAILY 12/24/16 [ History] Diazepam 5 mg [Valium 5 MG] 5 mg PO TID 12/24/16 [History] Doxylamine Succinate [Unisom Sleep Aid] 25 mg PO HS 12/24/16 [History] Hydrocodone Bit/Acetaminophen [Comstock 7.5-325 Tablet] 1 each PO Q6HPRN PRN [History] Multivitamin [Multivitamins] 1 each PO DAILY 12/24/16 [History] Paroxetine HCl [Paroxetine Cr] 37.5 mg PO QAM 12/24/16 [History] Paroxetine HCl [Paxil Cr] 25 mg PO LUNCH 12/24/16 [History] Pregabalin [Lyrica] 75 mg PO BID 12/24/16 [History] Pyridoxine HCl [Vitamin B-6] 50 mg PO DAILY 12/24/16 [History] Hx Tetanus, Diphtheria Vaccination/Date Given: Yes (up to date) Hx Influenza Vaccination/Date Given: Yes Hx Pneumococcal Vaccination/Date Given: Yes - Review of Systems Constitutional: No Fever, No Chills Eyes: No Symptoms Ears, Nose, & Throat: No Symptoms Respiratory: No Cough, No Dyspnea Cardiac: No Chest Pain Abdominal/Gastrointestinal: Abdominal Pain, Nausea, Vomiting Genitourinary Symptoms: No Dysuria Skin: No Rash Neurological: No Focal Weakness, No Headache, No Parasthesia All Other Systems: Reviewed and Negative - Past Medical History Pertinent Past Medical History: Yes Neurological History: Migraines ENT History: No Pertinent History Cardiac History: No Pertinent History Respiratory History: No Pertinent History Endocrine Medical History: No Pertinent History Musculoskeletal History: No Pertinent History GI Medical History: Colitis, Hepatitis, Other History: Other Psycho-Social History: Anxiety, Depression Female Reproductive Disorders: No Pertinent History Other Medical History: short gut syndrome,chronic diarrhea,small bowel bacterial overgrowth. hx bowel obstruction 04/03 and others stated in the past. stage 2 kidney disease - Past Surgical History Past Surgical History: Yes Neuro Surgical History: No Pertinent History Cardiac: No Pertinent History Respiratory: No Pertinent History Gastrointestinal: Colon Resection, Other Genitourinary: Other Musculoskeletal: No Pertinent History Female Surgical History: Hysterectomy Other Surgical History: 100cm small bowel removal and resection and colon and large bowel removed, bladder surgen with suprapubic catheter placed. stent in rt ureter ,bladder revision with larger stent - Social History Smoking Status: Current every day smoker How long have you smoked: 25 years Exposure to second hand smoke: Yes Drug Use: none Patient Lives Alone: No - Female History Hx Now: No - Nursing Vital Signs Nursing Vital Signs: Initial Vital Signs Temperature 97.8 F Temperature Source Oral Pulse Rate 82 Respiratory Rate 18 Blood Pressure [] 95/58 Pain Intensity 8 - Physical Exam General Appearance: alert, other (anxious lady who appears uncomfortable) Eye Exam: PERRL/EOMI Ears, Nose, Throat Exam: moist mucous membranes Neck Exam: normal inspection, non-tender, supple Respiratory Exam: normal breath sounds Cardiovascular Exam: regular rate/rhythm Gastrointestinal/Abdomen Exam: soft, tenderness (diffuse), No distention Extremity Exam: normal inspection, normal range of motion Neurologic Exam: alert, oriented x 3, cooperative, sensation nml, No motor deficits Skin Exam: warm, dry, No rash - Course Nursing assessment & vital signs reviewed: Yes EKG Interpreted by Me: RATE (72), Sinus Rhythm, NORMAL AXIS, NORMAL INTERVALS ( QTc 437), NORMAL QRS, NORMAL ST-T - Radiology Exams AAS X-ray Interpretation: Teleradiologist Report (left abdominal small bowel air fluid leveling, ileus vs enteritis) Ordered Tests: Active Orders 24 hr Category Date Time Status Cook Candy STAT Care 12/24/16 10:04 Active EKG-ER Only STAT Care 12/24/16 09:50 Active IV Insertion STAT Care 12/24/16 09:50 Active OBSTR/ACUTE ABDOMEN SERIES Stat Exams 12/24/16 09:51 Completed CBC W DIFF Stat Lab 12/24/16 09:58 Completed CMP Stat Lab 12/24/16 09:58 Completed LIPASE Stat Lab 12/24/16 09:58 Completed Lactic Acid Stat Lab 12/24/16 09:50 Ordered MAGNESIUM Stat Lab 12/24/16 09:58 Completed Medication Summary Discontinued Medications Generic Name Dose Route Start Last Admin Trade Name Freq PRN Reason Stop Dose Admin Famotidine 20 mg 12/24/16 09:50 12/24/16 10:06 Pepcid 20 Mg Vial IV 12/24/16 09:51 20 mg STAT ONE Administration Famotidine Confirm 12/24/16 10:02 Pepcid 20 Mg Vial Administered 12/24/16 10:03 Dose 20 mg IV .STK-MED ONE Hydromorphone HCl 1 mg 12/24/16 09:50 12/24/16 10:06 Hydromorphone 1 Mg/Ml Ampule IV 12/24/16 09:51 1 mg STAT ONE Administration Hydromorphone HCl Confirm 12/24/16 10:03 Hydromorphone 1 Mg/Ml Ampule Administered 12/24/16 10:04 Dose 1 mg .ROUTE .STK-MED ONE Hydromorphone HCl 1 mg 12/24/16 11:54 12/24/16 12:00 Hydromorphone 1 Mg/Ml Ampule IV 12/24/16 11:55 1 mg STAT ONE Administration Hydromorphone HCl Confirm 12/24/16 11:59 Hydromorphone 1 Mg/Ml Ampule Administered 12/24/16 12:00 Dose 1 mg .ROUTE .STK-MED ONE Chlorpromazine HCl 50 mg/ 102 mls @ 100 mls/hr 12/24/16 09:58 12/24/16 10:11 Sodium Chloride IV 12/24/16 10:59 100 mls/hr STAT ONE Administration Lactated Ringer's 1,000 mls @ 999 mls/hr 12/24/16 09:58 12/24/16 10:05 Lactated Ringers IV 12/24/16 10:58 999 mls/hr .Q1H1M ONE Administration Lactated Ringer's Confirm 12/24/16 10:03 Lactated Ringers Administered 12/24/16 10:04 Dose 1,000 mls @ ud IV .STK-MED ONE Lab/Rad Data: Laboratory Result Diagrams 12/24/16 09:58 12/24/16 09:58 Laboratory Results 12/24/16 12/24/16 12/24/16 Range/Units 09:58 09:58 09:58 WBC 9.1 (4.0-10.5) K/mm3 RBC 3.76 L (4.1-5.4) M/mm3 Hgb 11.2 L (12.0-16.0) gm/dl Hct 33.9 L (35-47) % MCV 90.2 (78-100) fl MCH 29.7 (26-32) pg MCHC 33.0 (32-36) g/dl RDW 14.8 H (11.5-14.0) % Plt Count 311 (150-450) K/mm3 MPV 9.6 H (6-9.5) fl Gran % 75.5 H (36.0-66.0) % Lymphocytes % 17.4 L (24.0-44.0) % Monocytes % 6.5 (0.0-12.0) % Eosinophils % 0.4 (0.00-5.0) % Basophils % 0.2 (0.0-0.4) % Basophils # 0.02 (0-0.4) Sodium 137 (136-145) mEq/L Potassium 4.3 (3.5-5.1) mEq/L Chloride 101 (98-107) mEq/L Carbon Dioxide 24.7 (21-32) mEq/L Anion Gap 15.1 H (5-15) MEQ/L BUN 20 (9-20) mg/dL Creatinine 1.29 (0.55-1.30) mg/dl Estimated GFR 46 ML/MIN Glucose 106 (70-110) MG/DL Calcium 9.2 (8.5-10.1) mg/dL Magnesium 2.1 (1.8-2.4) mg/dL Total Bilirubin 0.3 (0.2-1.0) mg/dL AST 52 H (15-37) U/L ALT 62 (12-78) U/L Alkaline Phosphatase 189 H (46-116) U/L Serum Total Protein 7.6 (6.4-8.2) gm/dL Albumin 3.5 (3.4-5.0) g/dL Lipase 255 (73-393) U/L - Progress Progress Note: 12/24/16 10:03 Will check labs and xray. Will treat with IVF and analgesia. Will try throrazine gtt for her profound nausea and pain. QT wnl on EKG. 12/24/16 13:18 The patient felt better after dilaudid, IVF, thorazine gtt. Nausea gone. Pain better. Taking ice chips. Will release to follow up with Dr Haji this week. Dr Haji's nurse will call her this afternoon with an appointment. Counseled pt/family regarding: lab results, diagnosis, need for follow-up, rad results - Departure Time of Disposition: 13:19 Departure Disposition: Home Clinical Impression: Nausea & vomiting, Chronic abdominal pain Condition: Stable Critical Care Time: No Referrals: JOSE HAJI [Primary Care Provider] - Instructions: Abdominal Pain-Adult Additional Instructions: ABDOMINAL PAIN 1. There are several different causes for abdominal pain, some of which may not be able to be identified on initial examination. 2. The important thing to remember is that bodily functions can change in a short period of time. If you notice any of the following symptoms, return to the emergency department or consult your doctor immediately: A. Worsening pain or no improvement in the next 12 hours. B. Increasing, severe abdominal pain C. Blood in stool D. Black stools E. Persistent vomiting F. Fever or chills or other symptoms [place] diet. Sip ice chips and fluids. No driving and stay with family. Dr Haji nurse will call with appointment and instructions this afternoon.
[2016-12-24 10:09] LABS: BASOPHIL % 0.2 % (0.0-0.4); Eosinophil % 0.4 % (0.00-5.0); Granulocytes % 75.5 % (36.0-66.0); Lymphocytes % 17.4 % (24.0-44.0); Mean Cell Volume 90.2 fl (78-100); Mean Platelet Volume 9.6 fl (6-9.5); Monocytes % 6.5 % (0.0-12.0); Platelet Count 311 K/mm3 (150-450); Red Blood Count 3.76 M/mm3 (4.1-5.4); Red Cell Distribution Width 14.8 % (11.5-14.0); White Blood Count 9.1 K/mm3 (4.0-10.5)
[2016-12-24 10:14] LABS: Mean Corpuscular Hemoglobin 29.7 pg (26-32)
[2016-12-24 10:33] LABS: ALBUMIN 3.5 g/dL (3.4-5.0); ANION GAP 15.1 MEQ/L (5-15); BILIRUBIN,TOTAL 0.3 mg/dL (0.2-1.0); Carbon Dioxide 24.7 mEq/L (21-32); Potassium 4.3 mEq/L (3.5-5.1); Total Protein 7.6 gm/dL (6.4-8.2)
--- NOTE | 2016-12-24 11:07 | XRAY ---
Indication: Abdominal pain and vomiting. Comparison: December 02, 2016. 2 views of the abdomen now demonstrates a few left abdomen small bowel air-fluid leveling, ileus versus enteritis. No obstruction or free air. Stable right lower quadrant ostomy, suprapubic catheter, and cholecystectomy clips. Remaining solid organs and osseous structures unremarkable. Single frontal chest again demonstrates normal heart, lungs, and bony thorax with right-sided Port-A-Cath. Impression: 1. Left abdomen small bowel air-fluid leveling, ileus versus enteritis. 2. Stable normal 1 view chest.
[2016-12-24 11:43] VITALS: O2SAT 99
[2016-12-24 13:42] VITALS: BP 100/62; PULSE 78
== END 2016-12-24 13:42 | disposition home or self-care (01) ==
LOC: ED 09:09
DX: R11.2 Nausea with vomiting, unspecified (principal); R10.9 Unspecified abdominal pain; G89.29 Other chronic pain; K86.1 Other chronic pancreatitis; N18.9 Chronic kidney disease, unspecified; Z79.899 Other long term (current) drug therapy
CPT/HCPCS: 36000; 36415; 74022; 80053; 83690; 83735; 85025; 93005; 93041; 96360; 96361; 96374; 96375; 96376; 99284; J1170; J1642; J3230

== ENCOUNTER 2016-12-25 08:14 | Inpatient (IN) | payer MEDICARE ==
[2016-12-25] MEDS ORDERED: Lactated Ringers 2,000 ML IV ONE (14:42)
[2016-12-25] MEDS ORDERED: COMPAZINE PR SCH (15:00)
[2016-12-25] MEDS: Lactated Ringers 1,000 ML IV SCH (15:07)
[2016-12-25] MEDS ORDERED: Magnesium 1 Gm / 100 Ml D5W*** 100 ML IV SCH (16:00)
[2016-12-25] MEDS ORDERED: BENADRYL 50 MG/ML IV PRN (16:13)
[2016-12-25] MEDS: PANCRELIPASE DR 5,000 UNIT CAP PO SCH (17:24)
[2016-12-25] MEDS: MORPHINE SULFATE 10 MG/ML IV PRN ×2 (17:28→21:30)
[2016-12-25] MEDS ORDERED: OCTREOTIDE ACETATE SQ SCH (22:00)
[2016-12-25] MEDS ORDERED: NON-FORMULARY ITEM (Pregabalin [Lyrica] 75 MG) PO SCH (22:00)
[2016-12-25] MEDS: Lyrica 50MG PO SCH (22:38)
[2016-12-25] MEDS: COMPAZINE PR SCH (22:38)
[2016-12-25] MEDS: Lyrica 25 MG PO SCH (22:38)
[2016-12-25] MEDS: SANDOSTATIN 50MCG/ML SQ SCH (22:39)
[2016-12-26] MEDS: Lactated Ringers 1,000 ML IV SCH ×3 (00:49→21:41)
[2016-12-26] MEDS: COMPAZINE PR SCH ×4 (03:56→17:29)
[2016-12-26] MEDS: MORPHINE SULFATE 10 MG/ML IV PRN ×3 (05:29→12:52)
[2016-12-26 06:18] LABS: BASOPHIL % 0.3 % (0.0-0.4); Eosinophil % 3.3 % (0.00-5.0); Granulocytes % 56.1 % (36.0-66.0); Lymphocytes % 32.3 % (24.0-44.0); Mean Corpuscular Hemoglobin 29.9 pg (26-32); Platelet Count 279 K/mm3 (150-450); Red Blood Count 4.12 M/mm3 (4.1-5.4); Red Cell Distribution Width 14.9 % (11.5-14.0); White Blood Count 7.2 K/mm3 (4.0-10.5)
[2016-12-26 06:54] LABS: ALBUMIN 3.7 g/dL (3.4-5.0); ANION GAP 12.4 MEQ/L (5-15); BILIRUBIN,TOTAL 0.8 mg/dL (0.2-1.0); MAGNESIUM 2.6 mg/dL (1.8-2.4); Potassium 4.3 mEq/L (3.5-5.1); Total Protein 8.3 gm/dL (6.4-8.2)
[2016-12-26] MEDS: PANCRELIPASE DR 5,000 UNIT CAP PO SCH ×3 (07:18→15:53)
[2016-12-26] MEDS: Lyrica 25 MG PO SCH ×3 (09:08→23:09)
[2016-12-26] MEDS: Lyrica 50MG PO SCH ×3 (09:08→23:10)
[2016-12-26] MEDS: Paxil 12.5MG CR PO SCH ×2 (09:10→11:34)
[2016-12-26] MEDS: SANDOSTATIN 50MCG/ML SQ SCH ×3 (09:27→23:10)
[2016-12-26] MEDS ORDERED: PAROXETINE HCL 37.5 MG PO SCH (10:00)
[2016-12-26] MEDS ORDERED: PAROXETINE HCL 25 MG PO SCH (12:00)
--- NOTE | 2016-12-26 14:18 | PCM.NOTE ---
Date and Time: 12/26/16 1412 Subjective Assessment: Pt admitted through office yesterday c/o 2 d of vomiting. She has chronic issues with her bowels including short gut syndrome, chronic electrolyte issues particularly with magnesium, chronic renal failure (seeing Dr. Orourke weekly with labs three times a week), and chronic abdominal pain (has ileostomy s/p colon/ small bowel resection, with suprapubic catheter). She had seen Dr. Castle GI, 3d ago and had an esophageal ultrasound of the pancreas. She c/o not feeling well with sore throat and went to the [facility] ER 2d ago. After her visit received thorazine; after this she started vomiting. Continued vomited yesterday morning when she was in outpatient therapy getting IV fluids, so she came over to the office to see me. Her labs revealed renal insufficiency and Mg 1.7. She was admitted for observation and IV fluids. I did speak to Dr. Castle. Dr. Orourke to be consulted. Today she is c/o nausea but no vomiting. Getting compazine CA q 6h. - Review of Systems Constitutional: No Fever Abdominal/Gastrointestinal: Abdominal Pain, Nausea, No Vomiting Objective Exam General Appearance: mild distress (nauseated; abd pain worse after my exam), other Neurologic Exam: alert, oriented x 3, cooperative Skin Exam: normal color, warm, dry Eye Exam: eyes nml inspection Neck Exam: normal inspection, non-tender, No lymphadenopathy Respiratory Exam: normal breath sounds, lungs clear, No crackles/rales, No rhonchi, No wheezing Cardiovascular Exam: regular rate/rhythm, normal heart sounds, No murmur Gastrointestinal/Abdomen Exam: soft, normal bowel sounds, tenderness (epigastrum , LLQ as usual), No distention Extremity Exam: No pedal edema, No swelling Back Exam: normal inspection OBJECTIVE DATA Vital Signs: Vital Signs - 24 hr Temp Pulse Resp BP Pulse Ox 12/26/16 11:45 97.1 F 81 18 109/64 92 L 12/26/16 07:36 98 F 75 17 112/69 91 L 12/26/16 04:00 98.1 F 75 14 107/65 95 12/26/16 00:15 97.9 F 81 17 126/83 94 L 12/25/16 20:00 98.4 F 95 H 13 116/76 94 L 12/25/16 17:43 97.9 F 12/25/16 15:11 97.7 F 100 H 20 153/86 94 L 12/25/16 14:53 97.8 F 100 H 20 153/86 94 L Pain Assessment - Last Documented Pain Intensity 10 Pain Scale Used 0-10 Pain Scale Intake and Output: Intake & Output 12/24/16 12/25/16 12/26/16 12/27/16 11:59 11:59 11:59 11:59 Intake Total 3210 Output Total 1600 100 Balance 1610 -100 Weight 65.499 kg Lab Results: Lab Results-Last 24 Hours 12/26/16 12/26/16 Range/Units 05:10 05:10 WBC 7.2 (4.0-10.5) K/mm3 RBC 4.12 (4.1-5.4) M/mm3 Hgb 12.3 (12.0-16.0) gm/dl Hct 37.5 (35-47) % MCV 91.0 (78-100) fl MCH 29.9 (26-32) pg MCHC 32.8 (32-36) g/dl RDW 14.9 H (11.5-14.0) % Plt Count 279 (150-450) K/mm3 MPV 10.0 H (6-9.5) fl Gran % 56.1 (36.0-66.0) % Lymphocytes % 32.3 (24.0-44.0) % Monocytes % 8.0 (0.0-12.0) % Eosinophils % 3.3 (0.00-5.0) % Basophils % 0.3 (0.0-0.4) % Basophils # 0.02 (0-0.4) Sodium 134 L (136-145) mEq/L Potassium 4.3 (3.5-5.1) mEq/L Chloride 95 L (98-107) mEq/L Carbon Dioxide 31.0 (21-32) mEq/L Anion Gap 12.4 (5-15) MEQ/L BUN 21 H (9-20) mg/dL Creatinine 1.61 H (0.55-1.30) mg/dl Estimated GFR 36 ML/MIN Glucose 98 (70-110) MG/DL Calcium 9.6 (8.5-10.1) mg/dL Magnesium 2.6 H (1.8-2.4) mg/dL Total Bilirubin 0.80 (0.2-1.0) mg/dL AST 108 H (15-37) U/L ALT 162 H (12-78) U/L Alkaline Phosphatase 234 H (46-116) U/L Serum Total Protein 8.3 H (6.4-8.2) gm/dL Albumin 3.7 (3.4-5.0) g/dL Assessment/Plan (1) Dehydration Current Visit: Yes Status: Acute Assessment & Plan: on IV fluids; consult Dr. Orourke to continue to manage. Code(s): E86.0 - DEHYDRATION (2) Nausea & vomiting Current Visit: No Status: Acute Qualifiers: Vomiting type: unspecified Vomiting Intractability: intractable Qualified Code(s): R11.2 - Nausea with vomiting, unspecified Assessment & Plan: improved Code(s): R11.2 - NAUSEA WITH VOMITING, UNSPECIFIED (3) Chronic kidney disease (CKD) stage G3a/A1, moderately decreased glomerular filtration rate (GFR) between 45-59 mL/min/1.73 square meter and albuminuria creatinine ratio less than 30 mg/g Current Visit: No Status: Chronic Assessment & Plan: Dr. Orourke consulted Code(s): N18.3 - CHRONIC KIDNEY DISEASE, STAGE 3 (MODERATE) (4) Ileostomy care Current Visit: No Status: Chronic Code(s): Z43.2 - ENCOUNTER FOR ATTENTION TO ILEOSTOMY (5) Short bowel syndrome Current Visit: No Status: Chronic Code(s): K91.2 - POSTSURGICAL MALABSORPTION, NOT ELSEWHERE CLASSIFIED (6) Hypomagnesemia Current Visit: No Status: Resolved Assessment & Plan: Mg actually a bit high after her infusion yesterday. Code(s): E83.42 - HYPOMAGNESEMIA
[2016-12-26] MEDS: DILAUDID 2 MG INJECTION IV PRN ×2 (16:08→19:22)
[2016-12-26] MEDS: DILAUDID 1 MG/1ML PCA IV PRN (20:54)
[2016-12-27] MEDS: COMPAZINE PR SCH ×5 (00:15→23:57)
[2016-12-27] MEDS: Lactated Ringers 1,000 ML IV SCH ×2 (07:11→18:13)
--- NOTE | 2016-12-27 08:18 | PCM.NOTE ---
Date and Time: 12/27/16813 Subjective Assessment: Pt feeling better this morning - not as nauseated, and no vomiting since admission. Tolerating small sips of liquids. Yesterday she ate a popsicle and drank 1/3 of her juice and her abd pain increased. I was called last night, pt in 8/10 pain even with the IV dilaudid. Changed to dilaudid JUMBO OPERATOR and she received 2.6mg overnight total per her son (at bedside this morning). - Review of Systems Constitutional: No Fever Abdominal/Gastrointestinal: Abdominal Pain, Nausea, No Vomiting Objective Exam General Appearance: no apparent distress Neurologic Exam: alert, oriented x 3, cooperative Skin Exam: normal color, warm, dry Respiratory Exam: normal breath sounds, lungs clear, No crackles/rales, No rhonchi, No wheezing Cardiovascular Exam: regular rate/rhythm, normal heart sounds, No murmur Gastrointestinal/Abdomen Exam: soft, normal bowel sounds, tenderness ( epigastrum as usual), No distention, No rebound Extremity Exam: swelling (trace LE edema) Back Exam: normal inspection OBJECTIVE DATA Vital Signs: Vital Signs - 24 hr Temp Pulse Resp BP Pulse Ox 12/27/16 07:47 97 F 84 18 94/62 96 12/27/16 06:44 81 16 97 12/27/16 04:00 98.3 F 82 13 110/70 95 12/27/16 00:54 98 12/27/16 00:00 98.6 F 85 13 126/75 93 L 12/26/16 23:32 87 18 98 12/26/16 20:54 92 L 12/26/16 20:00 98.4 F 80 17 113/69 12/26/16 16:00 98.2 F 87 16 115/70 90 L 12/26/16 11:45 97.1 F 81 18 109/64 92 L Oxygen-Last 24 hours O2 Percentage 2 Liters = 28% O2 Percentage 2 Liters = 28% Pain Assessment - Last Documented Pain Intensity 6 Pain Scale Used 0-10 Pain Scale Intake and Output: Intake & Output 12/24/16 12/25/16 12/26/16 12/27/16 11:59 11:59 11:59 11:59 Intake Total 3210 2619 Output Total 1600 1495 Balance 1610 1124 Weight 65.499 kg Multi-Disciplinary Progress Notes: Multi-Disciplinary Progress Notes 12/26/16 23:28 Respiratory Note by Tre Hunter NURSING CALLED AND STATED THAT PT WAS RECENTLY SET UP ON A JUMBO OPERATOR PUMP AND THAT SATS WERE 90% ON RA. WE SET PT UP ON 2LPM O2 W/ HUMIDITY FOR THE NIGHT. PT DOES NOT WEAR O2 AT HM. Initialized on 12/26/16 23:28 - END OF NOTE Assessment/Plan (1) Abdominal pain Current Visit: No Status: Acute Qualifiers: Abdominal location: epigastric Qualified Code(s): R10.13 - Epigastric pain Assessment & Plan: acute on chronic. Chronic pain likely due to adhesions per GI; acutely exacerbated currently by possible ileus. She can tolerate small sips of liquid ; as in previous admission, larger amounts of po intake increase her pain. Stay with tiny sips today and advance tomorrow to larger amounts as tolerated. Dilaudid JUMBO OPERATOR today; when tolerating more po will change to po norco. Code(s): R10.9 - UNSPECIFIED ABDOMINAL PAIN (2) Dehydration Current Visit: Yes Status: Resolved Code(s): E86.0 - DEHYDRATION (3) Nausea & vomiting Current Visit: No Status: Acute Qualifiers: Vomiting type: unspecified Vomiting Intractability: intractable Qualified Code(s): R11.2 - Nausea with vomiting, unspecified Assessment & Plan: much improved, on compazine SD q6h scheduled. Code(s): R11.2 - NAUSEA WITH VOMITING, UNSPECIFIED (4) Chronic kidney disease (CKD) stage G3a/A1, moderately decreased glomerular filtration rate (GFR) between 45-59 mL/min/1.73 square meter and albuminuria creatinine ratio less than 30 mg/g Current Visit: No Status: Chronic Assessment & Plan: Dr. Orourke consulted. Checking labs again this morning. Code(s): N18.3 - CHRONIC KIDNEY DISEASE, STAGE 3 (MODERATE) (5) Ileostomy care Current Visit: No Status: Chronic Code(s): Z43.2 - ENCOUNTER FOR ATTENTION TO ILEOSTOMY (6) Short bowel syndrome Current Visit: No Status: Chronic Code(s): K91.2 - POSTSURGICAL MALABSORPTION, NOT ELSEWHERE CLASSIFIED (7) Hypomagnesemia Current Visit: No Status: Resolved Code(s): E83.42 - HYPOMAGNESEMIA
[2016-12-27] MEDS: PANCRELIPASE DR 5,000 UNIT CAP PO SCH ×3 (08:19→15:33)
[2016-12-27 08:38] LABS: BASOPHIL % 0.2 % (0.0-0.4); Eosinophil % 3.1 % (0.00-5.0); Lymphocytes % 26.8 % (24.0-44.0); Mean Cell Volume 90.5 fl (78-100); Mean Corpuscular Hemoglobin 29.5 pg (26-32); Mean Platelet Volume 9.6 fl (6-9.5); Monocytes % 11.9 % (0.0-12.0); Platelet Count 246 K/mm3 (150-450); Red Blood Count 3.99 M/mm3 (4.1-5.4); Red Cell Distribution Width 14.1 % (11.5-14.0); White Blood Count 6.2 K/mm3 (4.0-10.5)
[2016-12-27 09:00] LABS: ALBUMIN 3.4 g/dL (3.4-5.0); ANION GAP 6.7 MEQ/L (5-15); BILIRUBIN,TOTAL 0.6 mg/dL (0.2-1.0); Carbon Dioxide 34.7 mEq/L (21-32); Potassium 4.1 mEq/L (3.5-5.1); Total Protein 7.9 gm/dL (6.4-8.2)
[2016-12-27] MEDS: Paxil 12.5MG CR PO SCH ×2 (09:38→12:41)
[2016-12-27] MEDS: Lyrica 50MG PO SCH ×2 (09:41→21:36)
[2016-12-27] MEDS: Lyrica 25 MG PO SCH ×2 (09:42→21:36)
[2016-12-27] MEDS: SANDOSTATIN 50MCG/ML SQ SCH ×3 (10:14→21:36)
[2016-12-27] MEDS: DILAUDID 1 MG/1ML PCA IV PRN (20:00)
[2016-12-28] MEDS: Lactated Ringers 1,000 ML IV SCH ×2 (04:15→14:43)
[2016-12-28] MEDS: COMPAZINE PR SCH ×3 (05:36→18:39)
[2016-12-28] MEDS: PANCRELIPASE DR 5,000 UNIT CAP PO SCH ×4 (08:12→18:39)
[2016-12-28 09:32] LABS: BASOPHIL % 0.2 % (0.0-0.4); Eosinophil % 2.4 % (0.00-5.0); Lymphocytes % 23.2 % (24.0-44.0); Mean Cell Volume 89.4 fl (78-100); Mean Corpuscular Hemoglobin 29.3 pg (26-32); Mean Platelet Volume 9.7 fl (6-9.5); Monocytes % 9.2 % (0.0-12.0); Platelet Count 239 K/mm3 (150-450); Red Blood Count 3.68 M/mm3 (4.1-5.4); Red Cell Distribution Width 13.7 % (11.5-14.0); White Blood Count 5.4 K/mm3 (4.0-10.5)
[2016-12-28] MEDS: Lyrica 25 MG PO SCH ×2 (09:39→22:32)
[2016-12-28] MEDS: Paxil 12.5MG CR PO SCH ×2 (09:39→12:37)
[2016-12-28] MEDS: Lyrica 50MG PO SCH ×2 (09:39→22:32)
[2016-12-28 09:41] LABS: ALBUMIN 3.1 g/dL (3.4-5.0); BILIRUBIN,TOTAL 0.6 mg/dL (0.2-1.0); Carbon Dioxide 33.6 mEq/L (21-32); Potassium 3.8 mEq/L (3.5-5.1); Total Protein 7.6 gm/dL (6.4-8.2)
[2016-12-28] MEDS: SANDOSTATIN 50MCG/ML SQ SCH ×3 (10:25→22:32)
[2016-12-28] MEDS: DILAUDID 1 MG/1ML PCA IV PRN (17:50)
[2016-12-29] MEDS: COMPAZINE PR SCH ×6 (00:23→23:56)
[2016-12-29] MEDS: Lactated Ringers 1,000 ML IV SCH ×3 (00:46→21:57)
[2016-12-29] MEDS ORDERED: PANCRELIPASE DR 5,000 UNIT CAP PO PRN (07:27)
[2016-12-29] MEDS: Lyrica 25 MG PO SCH ×2 (07:48→21:43)
[2016-12-29] MEDS: Lyrica 50MG PO SCH ×2 (07:48→21:43)
[2016-12-29] MEDS: Paxil 12.5MG CR PO SCH ×2 (07:48→12:04)
[2016-12-29] MEDS: PANCRELIPASE DR 5,000 UNIT CAP PO SCH ×3 (07:48→15:01)
[2016-12-29] MEDS: SANDOSTATIN 50MCG/ML SQ SCH ×3 (07:51→21:44)
[2016-12-29] MEDS: DILAUDID 1 MG/1ML PCA IV PRN (20:00)
[2016-12-30 05:18] LABS: Mean Cell Volume 88.9 fl (78-100); Mean Corpuscular Hemoglobin 29.1 pg (26-32); Mean Platelet Volume 9.3 fl (6-9.5); Platelet Count 247 K/mm3 (150-450); Red Blood Count 3.71 M/mm3 (4.1-5.4); Red Cell Distribution Width 13.6 % (11.5-14.0); White Blood Count 4.7 K/mm3 (4.0-10.5)
[2016-12-30 05:48] LABS: ALBUMIN 2.8 g/dL (3.4-5.0); ANION GAP 8.6 MEQ/L (5-15); BILIRUBIN,TOTAL 0.4 mg/dL (0.2-1.0); Carbon Dioxide 36.7 mEq/L (21-32); Total Protein 6.9 gm/dL (6.4-8.2)
[2016-12-30] MEDS: COMPAZINE PR SCH ×3 (06:12→18:21)
[2016-12-30] MEDS: Lactated Ringers 1,000 ML IV SCH ×2 (07:42→18:20)
[2016-12-30] MEDS: PANCRELIPASE DR 5,000 UNIT CAP PO SCH ×3 (07:43→16:24)
[2016-12-30] MEDS ORDERED: Klor Con 10 MEQ PO SCH (10:00)
[2016-12-30] MEDS: Lyrica 25 MG PO SCH ×2 (10:18→21:49)
[2016-12-30] MEDS: Paxil 12.5MG CR PO SCH ×2 (10:19→15:13)
[2016-12-30] MEDS: Lyrica 50MG PO SCH ×2 (10:19→21:49)
[2016-12-30] MEDS ORDERED: Magnesium 1 Gm / 100 Ml D5W*** 100 ML IV ONE (11:08)
--- NOTE | 2016-12-30 11:12 | PCM.NOTE ---
Date and Time: 12/30/16 1107 Subjective Assessment: Pt started on nutramagen, 4 scoops formula and 4 scoops Nesquick powder - tolerated 8 oz yesterday. Drank broth as well; tolerating very well. Today c/ o some cramping centered around the ostomy site. - Review of Systems Constitutional: No Fever Abdominal/Gastrointestinal: Appetite Changes (increasing appetite) Objective Exam General Appearance: no apparent distress Neurologic Exam: alert, oriented x 3, cooperative Skin Exam: normal color, warm, dry Respiratory Exam: normal breath sounds, lungs clear, No crackles/rales, No rhonchi, No wheezing Cardiovascular Exam: regular rate/rhythm, normal heart sounds, No murmur Gastrointestinal/Abdomen Exam: soft, normal bowel sounds, tenderness (epigastrum ; mildly decreased), other (ostomy in RLQ, suprapubic catheter present), No distention Extremity Exam: pedal edema (trace LE edema) OBJECTIVE DATA Vital Signs: Vital Signs - 24 hr Temp Pulse Resp BP Pulse Ox 12/30/16 09:31 94 L 12/30/16 08:00 97.1 F 79 16 101/67 97 12/30/16 07:17 74 18 99 12/30/16 04:00 98.4 F 76 20 122/71 97 12/30/16 00:00 97 12/29/16 23:32 98.6 F 79 12 109/72 97 12/29/16 20:00 98.7 F 87 16 100/60 93 L 12/29/16 16:30 99.0 F 84 16 110/66 91 L 12/29/16 12:14 98.8 F 95 H 18 116/71 92 L Oxygen-Last 24 hours O2 Percentage 2 Liters = 28% O2 Percentage 2 Liters = 28% Pain Assessment - Last Documented Pain Intensity 7 Pain Scale Used 0-10 Pain Scale Intake and Output: Intake & Output 12/27/16 12/28/16 12/29/16 12/30/16 11:59 11:59 11:59 11:59 Intake Total 3064 2769 3638 2748 Output Total 1495 2300 3475 3550 Balance 1569 469 163 -802 Weight 65.499 kg Lab Results: Lab Results-Last 24 Hours 12/30/16 12/30/16 12/30/16 Range/Units 05:00 05:00 05:00 WBC 4.7 (4.0-10.5) K/mm3 RBC 3.71 L (4.1-5.4) M/mm3 Hgb 10.8 L (12.0-16.0) gm/dl Hct 33.0 L (35-47) % MCV 88.9 (78-100) fl MCH 29.1 (26-32) pg MCHC 32.7 (32-36) g/dl RDW 13.6 (11.5-14.0) % Plt Count 247 (150-450) K/mm3 MPV 9.3 (6-9.5) fl Sodium 134 L (136-145) mEq/L Potassium 3.0 L* (3.5-5.1) mEq/L Chloride 92 L (98-107) mEq/L Carbon Dioxide 36.7 H (21-32) mEq/L Anion Gap 8.6 (5-15) MEQ/L BUN 10 (9-20) mg/dL Creatinine 1.18 (0.55-1.30) mg/dl Estimated GFR 51 ML/MIN Glucose 100 (70-110) MG/DL Calcium 9.1 (8.5-10.1) mg/dL Magnesium 1.6 L (1.8-2.4) mg/dL Total Bilirubin 0.40 (0.2-1.0) mg/dL AST 23 (15-37) U/L ALT 31 (12-78) U/L Alkaline Phosphatase 183 H (46-116) U/L Serum Total Protein 6.9 (6.4-8.2) gm/dL Albumin 2.8 L (3.4-5.0) g/dL Assessment/Plan (1) Abdominal pain Current Visit: No Status: Deleted Qualifiers: Abdominal location: epigastric Qualified Code(s): R10.13 - Epigastric pain Assessment & Plan: improved. She has been able to start the pancreatic supplements. Continue the nutramagen! Can try some bland, soft foods today - limited repertoire of 1/2 of certain foods - mashed potatoes, rice, crackers, etc. Discussed with pt, she is aware. If tolerating these well, will d/c BALLAST CLEANING OPERATOR tomorrow. Keep BALLAST CLEANING OPERATOR available for today. Code(s): R10.9 - UNSPECIFIED ABDOMINAL PAIN (2) Dehydration Current Visit: Yes Status: Resolved Code(s): E86.0 - DEHYDRATION (3) Nausea & vomiting Current Visit: Yes Status: Acute Qualifiers: Vomiting type: unspecified Vomiting Intractability: intractable Qualified Code(s): R11.2 - Nausea with vomiting, unspecified Assessment & Plan: improved. Code(s): R11.2 - NAUSEA WITH VOMITING, UNSPECIFIED (4) Chronic kidney disease (CKD) stage G3a/A1, moderately decreased glomerular filtration rate (GFR) between 45-59 mL/min/1.73 square meter and albuminuria creatinine ratio less than 30 mg/g Current Visit: No Status: Chronic Assessment & Plan: recheck labs in a.m. Code(s): N18.3 - CHRONIC KIDNEY DISEASE, STAGE 3 (MODERATE) (5) Ileostomy care Current Visit: No Status: Chronic Code(s): Z43.2 - ENCOUNTER FOR ATTENTION TO ILEOSTOMY (6) Short bowel syndrome Current Visit: No Status: Chronic Code(s): K91.2 - POSTSURGICAL MALABSORPTION, NOT ELSEWHERE CLASSIFIED (7) Hypomagnesemia Current Visit: No Status: Resolved Assessment & Plan: replete with IV and recheck. Code(s): E83.42 - HYPOMAGNESEMIA
[2016-12-30] MEDS: SANDOSTATIN 50MCG/ML SQ SCH ×3 (11:13→21:49)
[2016-12-30 17:27] LABS: Potassium 2.9 mEq/L (3.5-5.1)
[2016-12-30] MEDS: POTASSIUM CHLORIDE 20 mEq IN WATER 100ML 100 ML IV SCH ×2 (18:21→20:36)
[2016-12-31] MEDS: COMPAZINE PR SCH ×5 (00:05→23:47)
[2016-12-31] MEDS: PANCRELIPASE DR 5,000 UNIT CAP PO SCH ×3 (07:22→16:17)
--- NOTE | 2016-12-31 08:37 | PCM.NOTE ---
Date and Time: 12/31/16834 Subjective Assessment: Pt was doing much better yesterday, tolerating solid food, then she ate what she thinks was too much and had increased abdominal pain in the evening. This morning she is feeling better. Some nausea, better with compazine. - Review of Systems Constitutional: No Fever Abdominal/Gastrointestinal: Abdominal Pain, Nausea Objective Exam General Appearance: no apparent distress Neurologic Exam: alert, oriented x 3, cooperative Skin Exam: normal color, warm, dry Respiratory Exam: normal breath sounds, lungs clear, No crackles/rales, No rhonchi, No wheezing Cardiovascular Exam: regular rate/rhythm, normal heart sounds, No murmur Gastrointestinal/Abdomen Exam: soft, normal bowel sounds, tenderness ( epigastrum as usual) Extremity Exam: No pedal edema, No swelling OBJECTIVE DATA Vital Signs: Vital Signs - 24 hr Temp Pulse Resp BP Pulse Ox 12/31/16 08:00 98.4 F 80 18 106/70 93 L 12/31/16 04:00 97.9 F 75 18 120/74 95 12/31/16 00:00 93 L 12/30/16 23:54 98.2 F 73 18 118/72 93 L 12/30/16 20:00 98.3 F 77 20 111/66 92 L 12/30/16 19:20 94 L 12/30/16 16:00 97.6 F 84 16 100/68 94 L 12/30/16 12:00 98.1 F 78 16 110/69 92 L 12/30/16 11:52 96 12/30/16 09:31 94 L Pain Assessment - Last Documented Pain Intensity 9 Pain Scale Used 0-10 Pain Scale Intake and Output: Intake & Output 12/28/16 12/29/16 12/30/16 12/31/16 11:59 11:59 11:59 11:59 Intake Total 9629 3638 2748 4532 Output Total 2306 1335 7690 5134 Balance 469 163 -802 -633 Weight 65.499 kg Lab Results: Lab Results-Last 24 Hours 12/30/16 12/30/16 12/31/16 Range/Units 05:00 17:07 01:07 Potassium 2.9 L* 3.4 L (3.5-5.1) mEq/L Magnesium 1.6 L 2.0 (1.8-2.4) mg/dL Multi-Disciplinary Progress Notes: Multi-Disciplinary Progress Notes 12/30/16 11:10 Case Management Note by Myra Mahmood REVIEWED DISCHARGE PLAN. CONTINUES TO PLAN TO RETURN HOME WITH . INDEPENDENT. DECLINED ADDNL NEED.S Initialized on 12/30/16 11:10 - END OF NOTE Assessment/Plan (1) Abdominal pain Current Visit: No Status: Deleted Qualifiers: Abdominal location: epigastric Qualified Code(s): R10.13 - Epigastric pain Assessment & Plan: improving, albeit slowly. Will d/c [employer]WORK[employer] today and change her to po pain meds; if she can tolerate that may be able to d/c tomorrow. Code(s): R10.9 - UNSPECIFIED ABDOMINAL PAIN (2) Dehydration Current Visit: Yes Status: Resolved Code(s): E86.0 - DEHYDRATION (3) Nausea & vomiting Current Visit: Yes Status: Acute Qualifiers: Vomiting type: unspecified Vomiting Intractability: intractable Qualified Code(s): R11.2 - Nausea with vomiting, unspecified Assessment & Plan: improved Code(s): R11.2 - NAUSEA WITH VOMITING, UNSPECIFIED (4) Chronic kidney disease (CKD) stage G3a/A1, moderately decreased glomerular filtration rate (GFR) between 45-59 mL/min/1.73 square meter and albuminuria creatinine ratio less than 30 mg/g Current Visit: No Status: Chronic Assessment & Plan: check labs in a.m. Code(s): N18.3 - CHRONIC KIDNEY DISEASE, STAGE 3 (MODERATE) (5) Ileostomy care Current Visit: No Status: Chronic Assessment & Plan: output is decreased on the octreotide. Code(s): Z43.2 - ENCOUNTER FOR ATTENTION TO ILEOSTOMY (6) Short bowel syndrome Current Visit: No Status: Chronic Code(s): K91.2 - POSTSURGICAL MALABSORPTION, NOT ELSEWHERE CLASSIFIED (7) Hypomagnesemia Current Visit: No Status: Resolved Assessment & Plan: recheck in a.m. Code(s): E83.42 - HYPOMAGNESEMIA
[2016-12-31] MEDS: Lactated Ringers 1,000 ML IV SCH ×2 (09:12→18:10)
[2016-12-31] MEDS: Paxil 12.5MG CR PO SCH ×2 (09:13→15:54)
[2016-12-31] MEDS: Lyrica 50MG PO SCH ×2 (09:13→22:30)
[2016-12-31] MEDS: Lyrica 25 MG PO SCH ×2 (09:13→22:30)
[2016-12-31] MEDS: SANDOSTATIN 50MCG/ML SQ SCH ×3 (09:16→22:31)
[2016-12-31] MEDS: OXYCODONE-ACETAMINOPHEN 10-325 PO PRN ×3 (11:34→20:14)
[2016-12-31] MEDS: Ativan 2 MG/1 ML VIAL IV PRN ×3 (13:18→23:46)
[2016-12-31] MEDS ORDERED: Zofran 4 MG/2 ML VIAL IV PRN (19:44)
[2017-01-01] MEDS: Lactated Ringers 1,000 ML IV SCH (03:53)
[2017-01-01] MEDS: COMPAZINE PR SCH ×3 (05:20→19:00)
[2017-01-01 05:37] LABS: BASOPHIL % 0.5 % (0.0-0.4); Eosinophil % 3.2 % (0.00-5.0); Granulocytes % 54.3 % (36.0-66.0); Lymphocytes % 28.5 % (24.0-44.0); Mean Cell Volume 88.8 fl (78-100); Mean Platelet Volume 9.4 fl (6-9.5); Monocytes % 13.5 % (0.0-12.0); Platelet Count 260 K/mm3 (150-450); Red Blood Count 3.85 M/mm3 (4.1-5.4); Red Cell Distribution Width 13.4 % (11.5-14.0); White Blood Count 5.7 K/mm3 (4.0-10.5)
[2017-01-01 06:15] LABS: ANION GAP 6.7 MEQ/L (5-15); BILIRUBIN,TOTAL 0.3 mg/dL (0.2-1.0); Carbon Dioxide 38.2 mEq/L (21-32); MAGNESIUM 1.7 mg/dL (1.8-2.4); Total Protein 7.4 gm/dL (6.4-8.2)
[2017-01-01 06:30] LABS: Potassium 2.7 mEq/L (3.5-5.1)
[2017-01-01] MEDS: POTASSIUM CHLORIDE 20 mEq IN WATER 100ML 100 ML IV SCH ×2 (07:57→09:42)
[2017-01-01] MEDS: PANCRELIPASE DR 5,000 UNIT CAP PO SCH ×3 (07:57→16:04)
--- NOTE | 2017-01-01 08:53 | PCM.NOTE ---
Date and Time: 01/01/17 0850 Subjective Assessment: She had quite a bit of vomiting yesterday; 900cc in the afternoon, then she was decreased to liquid diet. Vomited again about 3 am. Having abd pain. - Review of Systems Constitutional: No Fever Abdominal/Gastrointestinal: Abdominal Pain, Vomiting Objective Exam General Appearance: mild distress Neurologic Exam: alert, oriented x 3, cooperative Skin Exam: normal color, warm, dry Respiratory Exam: normal breath sounds, lungs clear Cardiovascular Exam: regular rate/rhythm, normal heart sounds, No murmur Gastrointestinal/Abdomen Exam: soft, tenderness (throughout, unchanged), other ( hypoactive bowel sounds) OBJECTIVE DATA Vital Signs: Vital Signs - 24 hr Temp Pulse Resp BP Pulse Ox 01/01/17 07:05 98 F 79 18 109/70 97 01/01/17 04:00 98.6 F 78 18 110/77 92 L 12/31/16 23:48 98.4 F 73 16 108/65 92 L 12/31/16 20:17 94 L 12/31/16 20:00 98.5 F 83 15 133/78 96 12/31/16 16:00 98.7 F 84 16 121/82 97 12/31/16 12:00 98.7 F 74 16 116/73 97 Pain Assessment - Last Documented Pain Intensity 9 Pain Scale Used [facility] Intake and Output: Intake & Output 12/29/16 12/30/16 12/31/16 01/01/17 11:59 11:59 11:59 11:59 Intake Total 3638 2748 4732 2824 Output Total 3470 0910 5170 2100 Balance 163 -272 -761 724 Lab Results: Lab Results-Last 24 Hours 01/01/17 01/01/17 Range/Units 05:20 05:20 WBC 5.7 (4.0-10.5) K/mm3 RBC 3.85 L (4.1-5.4) M/mm3 Hgb 11.2 L (12.0-16.0) gm/dl Hct 34.2 L (35-47) % MCV 88.8 (78-100) fl MCH 29.0 (26-32) pg MCHC 32.7 (32-36) g/dl RDW 13.4 (11.5-14.0) % Plt Count 260 (150-450) K/mm3 MPV 9.4 (6-9.5) fl Gran % 54.3 (36.0-66.0) % Lymphocytes % 28.5 (24.0-44.0) % Monocytes % 13.5 H (0.0-12.0) % Eosinophils % 3.2 (0.00-5.0) % Basophils % 0.5 (0.0-0.4) % Basophils # 0.03 (0-0.4) Sodium 134 L (136-145) mEq/L Potassium 2.7 L* (3.5-5.1) mEq/L Chloride 93 L (98-107) mEq/L Carbon Dioxide 38.2 H (21-32) mEq/L Anion Gap 6.7 (5-15) MEQ/L BUN 10 (9-20) mg/dL Creatinine 1.21 (0.55-1.30) mg/dl Estimated GFR 50 ML/MIN Glucose 101 (70-110) MG/DL Calcium 8.9 (8.5-10.1) mg/dL Magnesium 1.7 L (1.8-2.4) mg/dL Total Bilirubin 0.30 (0.2-1.0) mg/dL AST 23 (15-37) U/L ALT 32 (12-78) U/L Alkaline Phosphatase 180 H (46-116) U/L Serum Total Protein 7.4 (6.4-8.2) gm/dL Albumin 3.0 L (3.4-5.0) g/dL Multi-Disciplinary Progress Notes: Multi-Disciplinary Progress Notes 12/31/16 09:05 (created 12/31/16 12:24) Case Management Note by Myra Mahmood CONTINUES TO PLAN TO RETURN HOME TO PRE EPISODIC LEVEL OF FNX. INDEPENDENT WITH ALL ADL'S. AT HOME TO ASSIST IF NEEDED. CONTINUES TO DECLINE ADDNL NEEDS FOR DISCHARGE. WILL FOLLOW. Initialized on 12/31/16 12:24 - END OF NOTE Assessment/Plan (1) Abdominal pain Current Visit: No Status: Deleted Qualifiers: Abdominal location: epigastric Qualified Code(s): R10.13 - Epigastric pain Assessment & Plan: persistent, likely chronically adhesions, acutely with some ileus. Will change pain meds back to IV. Code(s): R10.9 - UNSPECIFIED ABDOMINAL PAIN (2) Dehydration Current Visit: Yes Status: Resolved Code(s): E86.0 - DEHYDRATION (3) Hypokalemia Current Visit: No Status: Chronic Assessment & Plan: Will change IVF and increase the K+. Currently getting a bolus. PO potassium is ineffective/not tolerated well. Code(s): E87.6 - HYPOKALEMIA (4) Nausea & vomiting Current Visit: Yes Status: Acute Qualifiers: Vomiting type: unspecified Vomiting Intractability: intractable Qualified Code(s): R11.2 - Nausea with vomiting, unspecified Assessment & Plan: recurrent. Decreased diet to CLD, can advance to nutramagen as tolerated, very very slowly. Code(s): R11.2 - NAUSEA WITH VOMITING, UNSPECIFIED (5) Chronic kidney disease (CKD) stage G3a/A1, moderately decreased glomerular filtration rate (GFR) between 45-59 mL/min/1.73 square meter and albuminuria creatinine ratio less than 30 mg/g Current Visit: No Status: Chronic Assessment & Plan: recheck labs in a.m. Code(s): N18.3 - CHRONIC KIDNEY DISEASE, STAGE 3 (MODERATE) (6) Ileostomy care Current Visit: No Status: Chronic Code(s): Z43.2 - ENCOUNTER FOR ATTENTION TO ILEOSTOMY (7) Short bowel syndrome Current Visit: No Status: Chronic Code(s): K91.2 - POSTSURGICAL MALABSORPTION, NOT ELSEWHERE CLASSIFIED (8) Hypomagnesemia Current Visit: No Status: Resolved Code(s): E83.42 - HYPOMAGNESEMIA
[2017-01-01] MEDS ORDERED: SODIUM CHLORIDE 0.9% W/ 40 mEq KCL 1000ML 1,000 ML IV SCH (09:00)
[2017-01-01] MEDS: OXYCODONE-ACETAMINOPHEN 10-325 PO PRN (09:15)
[2017-01-01] MEDS: Lyrica 50MG PO SCH ×2 (09:43→21:01)
[2017-01-01] MEDS: Lyrica 25 MG PO SCH ×2 (09:43→21:00)
[2017-01-01] MEDS: Paxil 12.5MG CR PO SCH ×2 (09:46→13:02)
[2017-01-01] MEDS: DILAUDID 1 MG/1ML PCA IV PRN ×2 (11:18→22:41)
[2017-01-01] MEDS: SANDOSTATIN 50MCG/ML SQ SCH ×3 (11:26→21:01)
[2017-01-01] MEDS ORDERED: Sodium Chloride 0.9% W/ 20 mEq KCl/LITER 1,000 ML IV SCH (15:00)
[2017-01-01] MEDS: Ativan 2 MG/1 ML VIAL IV PRN (19:35)
[2017-01-01 20:54] VITALS: BP 108/69; PULSE 91; O2SAT 97
== END 2017-01-01 21:21 | disposition short-term general hospital (02) | DRG 392 ==
LOC: MED SURG 08:14 → OBSVTOIN 12-27 08:14
PROVIDERS: ADMIT Family Medicine; ATTEND Family Medicine
DX: R10.13 Epigastric pain (principal); K91.2 Postsurgical malabsorption, not elsewhere classified; K50.90 Crohn's disease, unspecified, without complications; E86.0 Dehydration; N18.3 Chronic kidney disease, stage 3 (moderate); Z43.2 Encounter for attention to ileostomy; E83.42 Hypomagnesemia; E87.6 Hypokalemia; Z90.49 Acquired absence of other specified parts of digestive tract; Z79.899 Other long term (current) drug therapy
CPT/HCPCS: 36415; 80053; 83735; 84132; 85025; 85027; 93268; 94760; G0378; J1170; J1642; J2060; J2270; J2354; J2405; J3475; J3480; A9270-GY

== ENCOUNTER 2017-01-07 11:49 | Observation (INO) | payer MEDICARE ==
[2017-01-07 12:34] LABS: BASOPHIL % 0.3 % (0.0-0.4); Eosinophil % 1.5 % (0.00-5.0); Granulocytes % 87.1 % (36.0-66.0); Lymphocytes % 8.6 % (24.0-44.0); Mean Cell Volume 87.8 fl (78-100); Mean Corpuscular Hemoglobin 29.2 pg (26-32); Mean Platelet Volume 9.1 fl (6-9.5); Monocytes % 2.5 % (0.0-12.0); Platelet Count 299 K/mm3 (150-450); Red Blood Count 4.35 M/mm3 (4.1-5.4); Red Cell Distribution Width 14.1 % (11.5-14.0); White Blood Count 15.1 K/mm3 (4.0-10.5)
--- NOTE | 2017-01-07 12:34 | XRAY ---
Indication: Near syncope. Comparison: December 24, 2016. Single frontal chest again demonstrates normal heart, lungs, and bony thorax with right-sided Port-A-Cath.
[2017-01-07 12:36] LABS: Collection Type CLEAN CATCH; Ph 5.5 (5-6)
[2017-01-07 12:37] LABS: ADD URINE CULTURE? YES (NO); COMPLETE URINE MICROSCOPIC? YES
[2017-01-07 12:45] LABS: WBC >100 /HPF (0-5)
[2017-01-07 12:46] LABS: Bacteria PACKED /HPF (NEGATIVE)
[2017-01-07 13:11] LABS: ALBUMIN 3.5 g/dL (3.4-5.0); ANION GAP 16.3 MEQ/L (5-15); BILIRUBIN,TOTAL 0.3 mg/dL (0.2-1.0); Carbon Dioxide 25.3 mEq/L (21-32); MAGNESIUM 2.7 mg/dL (1.8-2.4); Total Protein 8.4 gm/dL (6.4-8.2)
--- NOTE | 2017-01-07 13:27 | ERPHSYRPT ---
- History of Present Illness Time Seen by Provider: 01/07/17 13:15 Source: patient, family Exam Limitations: physical impairment (lethargic, but arousable) Patient Subjective Stated Complaint: at [facility] and had near syncope Triage Nursing Assessment: discharged from hospital yesterday. had fluids in infusion center this morning. states was at the [facility] pharmacy and had sudden onset of dizziness and lightheadedness. staff sat pt down and laid her on bench. on arrival, pt states she still feels weak all over and tired. states felt fine during infusion this morning 'i think i am just dehydrated again' alert and oriented. c/o abd pain (chronic abd pain at 11/11.) 'i still have pancreatitis so i think my pain is worse today from that' has istomy and colostomy Witnessed: by family, bystander Prior Episodes: single episode today Timing/Duration: today Precipitating Factors: lightheadedness, other (iliostomy) Context: standing Loss of Consciousness: brief (seconds) Charcter of event(s): felt faint, almost passed out Allergies/Adverse Reactions: oxybutynin Allergy (Severe, Verified 01/07/17 12:07) pharyngeal swelling ampicillin Allergy (Mild, Verified 01/07/17 12:07) hives duloxetine [From Cymbalta] Allergy (Mild, Verified 01/07/17 12:07) nausea erythromycin base [Erythromycin Base] Allergy (Mild, Verified 01/07/17 12:07) Hives Home Medications: Ascorbic Acid [Vitamin C] 1,000 mg PO DAILY 12/24/16 [History] Cholecalciferol (Vitamin D3) [Vitamin D] 2,000 iu PO DAILY 12/24/16 [ History] Diazepam 5 mg [Valium 5 MG] 5 mg PO TID 12/24/16 [History] Doxylamine Succinate [Unisom Sleep Aid] 25 mg PO HS 12/24/16 [History] Hydrocodone Bit/Acetaminophen [[place] 7.5-325 Tablet] 1 each PO Q6HPRN PRN [History] Multivitamin [Multivitamins] 1 each PO DAILY 12/24/16 [History] Paroxetine HCl [Paroxetine Cr] 37.5 mg PO QAM 12/24/16 [History] Paroxetine HCl [Paxil Cr] 25 mg PO LUNCH 12/24/16 [History] Pregabalin [Lyrica] 75 mg PO BID 12/24/16 [History] Pyridoxine HCl [Vitamin B-6] 50 mg PO DAILY 12/24/16 [History] Lipase/Protease/Amylase [Pancrelipase 5,000 Dr Capsule] 2 each PO UD 12/25/16 [ History] Octreotide Acetate 100 mcg SQ TID 12/25/16 [History] Spironolactone 25 mg [Aldactone 25 MG] 200 mg PO DAILY 01/01/17 [History] Cholestyramine Light 4 gm [QUESTRAN Light 4 GM Packet] 4 gm PO BID [History] Promethazine HCl 25 mg [Phenergan 25 mg] 25 mg PO BID 01/07/17 [History] Tolterodine Tartrate [Detrol LA] 4 mg PO DAILY 01/07/17 [History] Hx Tetanus, Diphtheria Vaccination/Date Given: Yes (up to date) Hx Influenza Vaccination/Date Given: Yes Hx Pneumococcal Vaccination/Date Given: Yes - Past Medical History Pertinent Past Medical History: Yes Neurological History: Migraines ENT History: No Pertinent History Cardiac History: No Pertinent History Respiratory History: No Pertinent History Endocrine Medical History: No Pertinent History Musculoskeletal History: No Pertinent History GI Medical History: Colitis, Hepatitis, Other History: Other Psycho-Social History: Anxiety, Depression Female Reproductive Disorders: No Pertinent History Other Medical History: short gut syndrome,chronic diarrhea,small bowel bacterial overgrowth. hx bowel obstruction 04/03 and others stated in the past. stage 2 kidney disease - Past Surgical History Past Surgical History: Yes Neuro Surgical History: No Pertinent History Cardiac: No Pertinent History Respiratory: No Pertinent History Gastrointestinal: Colon Resection, Other Genitourinary: Other Musculoskeletal: No Pertinent History Female Surgical History: Hysterectomy Other Surgical History: 100cm small bowel removal and resection and colon and large bowel removed, bladder surgen with suprapubic catheter placed. stent in rt ureter ,bladder revision with larger stent - Social History Smoking Status: Current every day smoker How long have you smoked: 25 years Exposure to second hand smoke: Yes Drug Use: none Patient Lives Alone: No - Female History Hx Now: No - Review of Systems Constitutional: Lethargy, Weakness Eyes: No Symptoms Ears, Nose, & Throat: No Symptoms Respiratory: No Symptoms Cardiac: No Symptoms Abdominal/Gastrointestinal: Abdominal Pain, Other (iliostomy appliance stool at her baseline) Musculoskeletal: No Symptoms Skin: No Symptoms Neurological: Lethargy Psychological: No Symptoms Endocrine: No Symptoms Hematologic/Lymphatic: No Symptoms Physical Exam - Nursing Vital Signs Nursing Vital Signs: Initial Vital Signs Temperature 97.2 F Temperature Source Oral Pulse Rate 110 Respiratory Rate 14 Blood Pressure [Right Arm] 110/60 Pain Intensity 6 - Ana Paula Coma Scale Best Eye Response (Ana Paula): (3) open to voice Best Verbal Response (Ana Paula): (5) oriented Best Motor Response ([place]): (6) obeys commands Ana Paula Total: 14 - Physical Exam Eye Exam: bilateral eye: EOMI Ears, Nose, Throat Exam: pharynx normal Neck Exam: normal inspection, non-tender, supple, full range of motion Respiratory: normal breath sounds, lungs clear, airway intact Cardiovascular: regular rate/rhythm, normal heart sounds, normal peripheral pulses Gastrointestinal: soft, normal bowel sounds Back Exam: normal inspection, normal range of motion Extremity Exam: normal inspection, normal range of motion, pelvis stable Mental Status: cooperative, lethargy greens picker Exam: normal speech Motor/Sensory: no motor deficit, no sensory deficit Skin Exam: normal color, warm, dry SpO2 Interpretation: normal SpO2: 99 Oxygen Delivery: Room Air - Course Nursing assessment & vital signs reviewed: Yes Ordered Tests: Active Orders 24 hr Category Date Time Status Clean Catch Urine Specimen STAT Care 01/07/17 12:09 Active EKG-ER Only STAT Care 01/07/17 12:09 Active Orthostatic Vital Signs STAT Care 01/07/17 12:09 Active Oxygen-ED Only NASAL CANNULA 2 lpm Care 01/07/17 17:14 Active CHEST 1 VIEW (PORTABLE) Stat Exams 01/07/17 12:09 Completed PANCREAS [US] Stat Exams 01/07/17 14:49 Completed CBC W DIFF Stat Lab 01/07/17 12:25 Completed CMP Stat Lab 01/07/17 12:25 Completed CULTURE,URINE Stat Lab 01/07/17 12:25 Received LIPASE Stat Lab 01/07/17 12:25 Completed MAGNESIUM Stat Lab 01/07/17 12:25 Completed UA W/ MICROSCOPIC Stat Lab 01/07/17 12:25 Completed Medication Summary Generic Name Dose Route Start Last Admin Trade Name Freq PRN Reason Stop Dose Admin Sodium Chloride 1,000 mls @ 200 mls/hr 01/07/17 17:00 01/07/17 17:05 Sodium Chloride 0.9% 1000 Ml IV 02/06/17 16:59 200 mls/hr .Q5H YURI Administration Discontinued Medications Generic Name Dose Route Start Last Admin Trade Name Kristy PRN Reason Stop Dose Admin Hydromorphone HCl 0.5 mg 01/07/17 16:57 01/07/17 17:04 Hydromorphone 1 Mg/Ml Ampule IV 01/07/17 16:58 0.5 mg STAT ONE Administration Hydromorphone HCl Confirm 01/07/17 16:59 Hydromorphone 1 Mg/Ml Ampule Administered 01/07/17 17:00 Dose 1 mg .ROUTE .STK-MED ONE Levofloxacin/Dextrose 500 mg in 100 mls @ 100 mls/hr 01/07/17 14:31 01/07/17 16:54 Levofloxacin 500mg/100ml D5w IV 01/07/17 15:30 100 mls/hr STAT STA Administration Vancomycin HCl 1 gm in 250 mls @ 167 mls/hr 01/07/17 14:31 01/07/17 14:39 Vancomycin 1gm/ Ns 250ml IV 01/07/17 16:00 167 mls/hr STAT ONE Administration Vancomycin HCl Confirm 01/07/17 14:35 Vancomycin 1gm/ Ns 250ml Administered 01/07/17 14:36 Dose 250 mls @ ud IV .STK-MED ONE Vancomycin HCl Confirm 01/07/17 16:47 Vancomycin 1gm/ Ns 250ml Administered 01/07/17 16:48 Dose 250 mls @ ud IV .STK-MED ONE Levofloxacin/Dextrose Confirm 01/07/17 16:51 Levofloxacin 500mg/100ml D5w Administered 01/07/17 16:52 Dose 500 mg in 100 mls @ ud IV .STK-MED ONE Lab/Rad Data: Laboratory Result Diagrams 01/07/17 12:25 01/07/17 12:25 Laboratory Results 01/07/17 01/07/17 01/07/17 Range/Units 12:25 12:25 12:25 WBC 15.1 H (4.0-10.5) K/mm3 RBC 4.35 (4.1-5.4) M/mm3 Hgb 12.7 (12.0-16.0) gm/dl Hct 38.2 (35-47) % MCV 87.8 (78-100) fl MCH 29.2 (26-32) pg MCHC 33.2 (32-36) g/dl RDW 14.1 H (11.5-14.0) % Plt Count 299 (150-450) K/mm3 MPV 9.1 (6-9.5) fl Gran % 87.1 H (36.0-66.0) % Lymphocytes % 8.6 L (24.0-44.0) % Monocytes % 2.5 (0.0-12.0) % Eosinophils % 1.5 (0.00-5.0) % Basophils % 0.3 (0.0-0.4) % Basophils # 0.04 (0-0.4) Sodium 130 L (136-145) mEq/L Potassium 4.0 (3.5-5.1) mEq/L Chloride 92 L (98-107) mEq/L Carbon Dioxide 25.3 (21-32) mEq/L Anion Gap 16.3 H (5-15) MEQ/L BUN 16 (9-20) mg/dL Creatinine 1.89 H (0.55-1.30) mg/dl Estimated GFR 30 ML/MIN Glucose 112 H (70-110) MG/DL Calcium 9.0 (8.5-10.1) mg/dL Magnesium 2.7 H (1.8-2.4) mg/dL Total Bilirubin 0.30 (0.2-1.0) mg/dL AST 30 (15-37) U/L ALT 26 (12-78) U/L Alkaline Phosphatase 160 H (46-116) U/L Serum Total Protein 8.4 H (6.4-8.2) gm/dL Albumin 3.5 (3.4-5.0) g/dL Lipase 584 H (73-393) U/L Ur Collection Type CLEAN CATCH Urine Color LT.YELLOW (YELLOW) Urine Appearance CLOUDY (CLEAR) Urine pH 5.5 (5-6) Ur Specific [place] 1.020 (1.005-1.025) Urine Protein 100 (Negative) Urine Glucose (UA) NEGATIVE (NEGATIVE) mg/dL Urine Ketones NEGATIVE (NEGATIVE) Urine Nitrite POSITIVE (NEGATIVE) Urine Bilirubin NEGATIVE (NEGATIVE) Urine Urobilinogen 0.2 (0-1) mg/dL Urine WBC (Auto) LARGE (NEGATIVE) Urine RBC (Auto) MODERATE (0-5) Gregg/ul Urine Microscopic WBC >100 (0-5) /HPF Urine Bacteria PACKED (NEGATIVE) /HPF Specimen Received 01-07 1200 - Progress Progress: pain not gone completely Discussed with Dr.: Haji (recommends transfer to [facility] where her recent admission and GI eval and treatment done.), Other (Multiple phone conversations with multivisceral transplant team members at . Otions given to discharge pt. home with F/U at their clinic at 0900 in am or be transferred tonight if bed available. Pt. wishes to go tonight, but [facility] no beds available . Dr. Haji accepts here as OBS in the meantime. Patient will be placed on the waiting list there at .) Counseled pt/family regarding: lab results, diagnosis, need for follow-up, rad results - Departure Time of Disposition: 14:30 Departure Disposition: Transfer Clinical Impression: Pancreatitis Qualifiers: Chronicity: acute Pancreatitis type: unspecified pancreatitis type Acute pancreatitis complication: unspecified Qualified Code(s): K85.90 - Acute pancreatitis without necrosis or infection, unspecified UTI (urinary tract infection) Qualifiers: Urinary tract infection type: site unspecified Hematuria presence: without hematuria Qualified Code(s): N39.0 - Urinary tract infection, site not specified Condition: Serious Critical Care Time: No Referrals: JOSE HAJI [Primary Care Provider] -
[2017-01-07] MEDS ORDERED: Vancomycin 1GM/ Ns 250ML*** 1 GM/250 ML IVPB IV ONE (14:31)
[2017-01-07] MEDS ORDERED: Levofloxacin 500MG/100ML D5W 500 MG/100 ML BAG IV STA (14:31)
[2017-01-07] MEDS ORDERED: Vancomycin 1GM/ Ns 250ML*** 250 ML IV ONE (14:35)
--- NOTE | 2017-01-07 16:29 | XRAY ---
Indication: Pancreatitis. Cholecystectomy. Two-dimensional right upper quadrant abdominal sonogram performed with special attention to the pancreas. Comparison: Gallbladder sonogram November 07, 2016. Again visualized portions of the liver, pancreas, and right kidney appear sonographically normal. Gallbladder again surgically absent. Common bile duct measures 5.4 mm. Right kidney measures 9.5 cm in length. Impression: Negative sonogram of the pancreas. Cholecystectomy.
[2017-01-07] MEDS ORDERED: Vancomycin 1GM/ Ns 250ML*** 0 ML IV ONE (16:47)
[2017-01-07] MEDS ORDERED: Levofloxacin 500MG/100ML D5W 500 MG/100 ML BAG IV ONE (16:51)
[2017-01-07] MEDS ORDERED: Hydromorphone 1 mg/ml Ampule IV ONE (16:57)
[2017-01-07] MEDS ORDERED: Sodium Chloride 0.9% 1000 ML 1,000 ML ONE (16:58)
[2017-01-07] MEDS ORDERED: Hydromorphone 1 mg/ml Ampule ONE (16:59)
[2017-01-07] MEDS ORDERED: Sodium Chloride 0.9% 1000 ML 1,000 ML IV SCH ×2 (17:00→18:45)
[2017-01-07] MEDS ORDERED: Zofran 4 MG/2 ML VIAL IV PRN (18:33)
[2017-01-07] MEDS ORDERED: TYLENOL 325 MG PO PRN (18:33)
[2017-01-07] MEDS ORDERED: DILAUDID 2 MG INJECTION IV PRN (18:33)
[2017-01-07] MEDS ORDERED: NORCO 7.5/325 MG TAB PO PRN (21:38)
[2017-01-07] MEDS ORDERED: Valium 5 MG PO SCH (22:00)
[2017-01-07] MEDS ORDERED: Lyrica 25 MG PO SCH (22:00)
--- NOTE | 2017-01-07 22:04 | PCM.SSS ---
History of Present Illness - Chief Complaint Chief Complaint: chronic pancreatitis and UTI History of Present Illness: is a 51 year old female pt of mine from [facility] with complicated medical history who came in c/o syncope today while at the pharmacy. She has a history of colon resection (secondary to colitis) with ileostomy; that surgery with bladder injury and subsequent suprapubic catheter placement. She has chronic renal failure and sees the environmental project manager weekly with IV fluid infusions three times a week. She chronically has low magensium and cannot replete her potassium or magnesium well orally. She has chronic pancreatitis as well. Approx 2 weeks ago she was admitted to [facility] with an episode of pancreatitis, abd pain, nausea and vomiting and was not improving so was transferred to [facility]. She stayed there 8 days before her discharge yesterday. There Dr. Castle, gastroenterology, discussed small bowel transfer and took steps to get her on the transplant list at [facility] (outcome of this is still uncertain). Her ostomy output was controlled. Her fluid status was stable with daily IV fluid infusions. The hospitalist attempted to get home health to give her daily fluids, but they refused since the pt goes to outpatient infusion for fluids. Pt was discharged to home yesterday and felt "dry." She had increased ostomy output; changed her ostomy bag 5x between 3am and 5 am this morning. She went to outpatient infusion to get fluids. After that she went to [facility] to get some prescriptions filled and as she stood there she felt pre-syncopal; she states she did pass out, but the staff caught her and sat her down. She states she tolerated 1/2 a bagle today. Otherwise not tolerating po well. She has had increased epigastric/LUQ pain. Currently she is not feeling well, still c/o abdominal pain. The ER doctor at [facility] spoke with [facility]plant Center and they are going to accept the patient in transfer; however they currently have no beds. She was admitted to [facility] for IVF and observation on telemetry until a bed becomes available. - Review of Systems Constitutional: Weakness Cardiac: Edema Abdominal/Gastrointestinal: Abdominal Pain, Nausea, Diarrhea (increased ostomy output) Neurological: Dizziness, Other (syncope) Psychological: Depression, No Suicidal Ideations All Other Systems: Reviewed and Negative Medications & Allergies Home Medications: Home Medication List Ascorbic Acid [Vitamin C] 1,000 mg PO DAILY 12/24/16 [History Confirmed 01/07/17 ] Cholecalciferol (Vitamin D3) [Vitamin D] 2,000 iu PO DAILY 12/24/16 [ History Confirmed 01/07/17] Diazepam 5 mg [Valium 5 MG] 5 mg PO TID 12/24/16 [History Confirmed ] Doxylamine Succinate [Unisom Sleep Aid] 25 mg PO HS 12/24/16 [History Confirmed 01/07/17] Hydrocodone Bit/Acetaminophen [[place]rose 7.5-325 Tablet] 1 each PO Q6HPRN PRN [History Confirmed 01/07/17] Multivitamin [Multivitamins] 1 each PO DAILY 12/24/16 [History Confirmed ] Paroxetine HCl [Paroxetine Cr] 37.5 mg PO QAM 12/24/16 [History Confirmed ] Paroxetine HCl [Paxil Cr] 25 mg PO LUNCH 12/24/16 [History Confirmed 01/07/17] Pregabalin [Lyrica] 75 mg PO BID 12/24/16 [History Confirmed 01/07/17] Pyridoxine HCl [Vitamin B-6] 50 mg PO DAILY 12/24/16 [History Confirmed 01/07/17 ] Lipase/Protease/Amylase [Pancrelipase 5,000 Dr Capsule] 2 each PO UD 12/25/16 [ History Confirmed 01/07/17] Octreotide Acetate 100 mcg SQ TID 12/25/16 [History Confirmed 01/07/17] Spironolactone 25 mg [Aldactone 25 MG] 200 mg PO DAILY 01/01/17 [History Confirmed 01/07/17] Cholestyramine Light 4 gm [QUESTRAN Light 4 GM Packet] 4 gm PO BID [History Confirmed 01/07/17] Promethazine HCl 25 mg [Phenergan 25 mg] 25 mg PO BID 01/07/17 [History Confirmed 01/07/17] Tolterodine Tartrate [Detrol LA] 4 mg PO DAILY 01/07/17 [History Confirmed 01/07] Allergies/Adverse Reactions: Allergies Allergy/AdvReac Type Severity Reaction Status Date / Time oxybutynin Allergy Severe Verified 01/07/17 12:07 ampicillin Allergy Mild Verified 01/07/17 12:07 duloxetine [From Cymbalta] Allergy Mild Verified 01/07/17 12:07 erythromycin base Allergy Mild Verified 01/07/17 12:07 [Erythromycin Base] - Past Medical History Past Medical History: Yes Neurological History: Migraines ENT History: No Pertinent History Cardiac History: No Pertinent History Respiratory History: No Pertinent History Endocrine Medical History: No Pertinent History Musculoskelatal History: No Pertinent History GI Medical History: Colitis, Hepatitis, Other History: Other Pyscho-Social History: Anxiety, Depression Reproductive Disorders: No Pertinent History Comment: short gut syndrome,chronic diarrhea,small bowel bacterial overgrowth. hx bowel obstruction 04/03 and others stated in the past. stage 2 kidney disease - Past Surgical History Past Surgical History: Yes Neuro Surgical History: No Pertinent History Cardiac History: No Pertinent History Respiratory Surgery: No Pertinent History GI Surgical History: Colon Resection, Other Genitourinary Surgical Hx: Other Musculskeletal Surgical Hx: No Pertinent History Female Surgical History: Hysterectomy Other Surgical History: 100cm small bowel removal and resection and colon and large bowel removed, bladder surgen with suprapubic catheter placed. stent in rt ureter ,bladder revision with larger stent - Social History Smoking Status: Current every day smoker How long have you smoked: 25 years Exposure to second hand smoke: Yes Alcohol: None Drug Use: none - Physical Exam Vital Signs: Vital Signs - 24 hr Temp Pulse Resp BP Pulse Ox 01/07/17 20:55 98 01/07/17 20:13 98.6 F 116 H 15 96/86 94 L 01/07/17 20:00 15 01/07/17 18:31 99 01/07/17 17:57 110 H 14 110/60 97 01/07/17 17:00 114 H 16 106/78 95 01/07/17 15:59 108 H 16 100/60 96 01/07/17 14:59 102 H 16 102/60 98 01/07/17 14:32 106 H 16 112/78 95 01/07/17 13:11 101 H 16 104/66 99 01/07/17 11:53 97.2 F 96 H 20 104/66 99 Oxygen-Last 24 hours O2 Percentage 2 Liters = 28% O2 Percentage 2 Liters = 28% O2 Percentage 2 Liters = 28% General Appearance: mild distress Neurologic Exam: alert, oriented x 3, cooperative Eye Exam: eyes nml inspection Neck Exam: normal inspection Respiratory Exam: normal breath sounds, lungs clear, No crackles/rales, No rhonchi, No wheezing Cardiovascular Exam: regular rate/rhythm, normal heart sounds, No murmur Gastrointestinal/Abdomen Exam: soft, normal bowel sounds, tenderness ( epigastrum and LUQ), guarding, other (ostomy in RLQ as usual. suprapubic catheter present), No distention, No rebound Pelvic Exam: not done Rectal Exam: deferred Back Exam: normal inspection Extremity Exam: normal inspection, No pedal edema, No swelling Skin Exam: normal color, warm, dry, No rash Results - Other Procedures and Tests Respiratory Therapy 01/07/17 18:33 Oxygen NASAL CANNULA 2 lpm Assessment/Plan (1) Pancreatitis Current Visit: Yes Status: Acute Qualifiers: Chronicity: acute Pancreatitis type: unspecified pancreatitis type Acute pancreatitis complication: unspecified Qualified Code(s): K85.90 - Acute pancreatitis without necrosis or infection, unspecified Assessment & Plan: Now chronic per GI. lipase elevated today. Pt receiving normal saline 100cc/hr and on CLD. Code(s): K85.90 - ACUTE PANCREATITIS WITHOUT NECROSIS OR INFECTION, UNSP (2) UTI (urinary tract infection) Current Visit: Yes Status: Acute Qualifiers: Urinary tract infection type: site unspecified Hematuria presence: without hematuria Qualified Code(s): N39.0 - Urinary tract infection, site not specified Assessment & Plan: Urine culture pending. On IV rocephin day #1. Code(s): N39.0 - URINARY TRACT INFECTION, SITE NOT SPECIFIED (3) Abdominal pain Current Visit: No Status: Acute Qualifiers: Abdominal location: epigastric Qualified Code(s): R10.13 - Epigastric pain Assessment & Plan: Was initially thought to be due to adhesions by gastroenterology. I'm unsure if he changed his diagnosis altogether, but he did seem to think a small bowel transplant would be in the patient's best interest. Code(s): R10.9 - UNSPECIFIED ABDOMINAL PAIN (4) Anemia Current Visit: No Status: Chronic Qualifiers: Anemia type: iron deficiency Assessment & Plan: chronic. I believe iron studies were done at [facility], but I have not had access to those in the few hours since she has been admitted. Code(s): D64.9 - ANEMIA, UNSPECIFIED (5) Hypokalemia Current Visit: No Status: Chronic Code(s): E87.6 - HYPOKALEMIA (6) Ileostomy care Current Visit: No Status: Chronic Code(s): Z43.2 - ENCOUNTER FOR ATTENTION TO ILEOSTOMY (7) Short bowel syndrome Current Visit: No Status: Chronic Code(s): K91.2 - POSTSURGICAL MALABSORPTION, NOT ELSEWHERE CLASSIFIED (8) Hypomagnesemia Current Visit: No Status: Resolved Assessment & Plan: Currently magnesium is 2.7 but this is immediately post-IV repletion. She does not tolerate po magnesium; gets IV infusions 3x/week. Code(s): E83.42 - HYPOMAGNESEMIA (9) Chronic kidney disease (CKD) stage G3a/A1, moderately decreased glomerular filtration rate (GFR) between 45-59 mL/min/1.73 square meter and albuminuria creatinine ratio less than 30 mg/g Current Visit: No Status: Chronic Assessment & Plan: Sees Dr. Orourke, environmental project manager, in [place], weekly. Current Cr 1.89. At her discharge over a week ago (to [facility]) her Creatinine was 1.4. Code(s): N18.3 - CHRONIC KIDNEY DISEASE, STAGE 3 (MODERATE) (10) Leukocytosis Current Visit: Yes Status: Acute Assessment & Plan: Presumably due to the UTI. Code(s): D72.829 - ELEVATED WHITE BLOOD CELL COUNT, UNSPECIFIED Hospital Summary - Hospital Course Hospital Course: is a 51 year old female pt of mine from [facility] with complicated medical history who came in c/o syncope today while at the pharmacy. She has a history of colon resection (secondary to colitis) with ileostomy; that surgery with bladder injury and subsequent suprapubic catheter placement. She has chronic renal failure and sees the environmental project manager weekly with IV fluid infusions three times a week. She chronically has low magensium and cannot replete her potassium or magnesium well orally. She has chronic pancreatitis as well. Approx 2 weeks ago she was admitted to [facility] with an episode of pancreatitis, abd pain, nausea and vomiting and was not improving so was transferred to [facility]. She stayed there 8 days before her discharge yesterday. There Dr. Castle, gastroenterology, discussed small bowel transfer and took steps to get her on the transplant list at [facility] (outcome of this is still uncertain). Her ostomy output was controlled. Her fluid status was stable with daily IV fluid infusions. The hospitalist attempted to get home health to give her daily fluids, but they refused since the pt goes to outpatient infusion for fluids. Pt was discharged to home yesterday and felt "dry." She had increased ostomy output; changed her ostomy bag 5x between 3am and 5 am this morning. She went to outpatient infusion to get fluids. After that she went to [facility] to get some prescriptions filled and as she stood there she felt pre-syncopal; she states she did pass out, but the staff caught her and sat her down. She states she tolerated 1/2 a bagle today. Otherwise not tolerating po well. She has had increased epigastric/LUQ pain. Currently she is not feeling well, still c/o abdominal pain. The ER doctor at [facility] spoke with [facility] and they are going to accept the patient in transfer; however they currently have no beds. She was admitted to [facility] for IVF and observation on telemetry until a bed becomes available. - Vitals & Intake/Output Vital Signs: Vital Signs Temperature 98.6 F 01/07/17 20:13 Pulse Rate 116 H 01/07/17 20:13 Respiratory Rate 15 01/07/17 20:13 Blood Pressure 96/86 01/07/17 20:13 O2 Sat by Pulse Oximetry 98 01/07/17 20:55 Oxygen-Last Documented O2 Percentage 2 Liters = 28% Intake & Output: Intake & Output 01/05/17 01/06/17 01/07/17 01/08/17 11:59 11:59 11:59 11:59 Intake Total 480 Output Total 350 Balance 130 Weight 63.049 kg - Lab Result Diagrams: 01/07/17 12:25 01/07/17 12:25 - Procedures and Test Procedures and Tests throughout Hospitalization: Therapy Orders & Screens 01/07/17 18:33 Oxygen NASAL CANNULA 2 lpm Comment: 01/07/17 20:51 Smoking Cessation Education ONCE Comment: Diagnosis: chronic pancreatitis and UTI Smoking Status: Current every day smoker How long have you smoked: 25 years Have you smoked in the past 12 months: Yes Approximately how many cigarettes per day: 10 Do you dip or chew tobacco: No - Discharge Disposition: XFER OTHER Condition: Stable Prescriptions: No Action Pyridoxine HCl [Vitamin B-6] 50 mg PO DAILY Pregabalin [Lyrica] 75 mg PO BID Paroxetine HCl [Paxil Cr] 25 mg PO LUNCH Paroxetine HCl [Paroxetine Cr] 37.5 mg PO QAM Multivitamin [Multivitamins] 1 each PO DAILY Hydrocodone Bit/Acetaminophen [[place]rose 7.5-325 Tablet] 1 each PO Q6HPRN PRN PRN Reason: Pain Doxylamine Succinate [Unisom Sleep Aid] 25 mg PO HS Diazepam 5 mg [Valium 5 MG] 5 mg PO TID Ascorbic Acid [Vitamin C] 1,000 mg PO DAILY Cholecalciferol (Vitamin D3) [Vitamin D] 2,000 iu PO DAILY Lipase/Protease/Amylase [Pancrelipase 5,000 Dr Capsule] 2 each PO UD Octreotide Acetate 100 mcg SQ TID Spironolactone 25 mg [Aldactone 25 MG] 200 mg PO DAILY Promethazine HCl 25 mg [Phenergan 25 mg] 25 mg PO BID Cholestyramine Light 4 gm [QUESTRAN Light 4 GM Packet] 4 gm PO BID Tolterodine Tartrate [Detrol LA] 4 mg PO DAILY Follow up with: JOSE ZAMORANO [Primary Care Provider] -
[2017-01-07] MEDS ORDERED: Lyrica 25 MG ONE (23:54)
[2017-01-07] MEDS ORDERED: Valium 5 MG ONE (23:55)
[2017-01-07 23:56] VITALS: BP 112/64; PULSE 106; O2SAT 99
[2017-01-08] MEDS ORDERED: Sodium Chloride 0.9% 1000 ML 1,000 ML ONE (00:43)
[2017-01-08] MEDS ORDERED: ROCEPHIN 1 Gm-D5w 50 ml Bag** 1 G/50 ML IVPB IV SCH (10:00)
[2017-01-08] MEDS ORDERED: PROTONIX 40 MG IV IV SCH (10:00)
== END 2017-01-08 00:45 ==
LOC: ED 11:49 → MED SURG 18:35
PROVIDERS: ADMIT Family Medicine; ATTEND Family Medicine
DX: K85.90 Acute pancreatitis without necrosis or infection, unspecified (principal); N39.0 Urinary tract infection, site not specified; R10.13 Epigastric pain; D64.9 Anemia, unspecified; E87.6 Hypokalemia; Z43.2 Encounter for attention to ileostomy; K91.2 Postsurgical malabsorption, not elsewhere classified; E83.42 Hypomagnesemia; N18.3 Chronic kidney disease, stage 3 (moderate); D72.829 Elevated white blood cell count, unspecified; Z90.49 Acquired absence of other specified parts of digestive tract; Z93.3 Colostomy status; Z79.899 Other long term (current) drug therapy
CPT/HCPCS: 36415; 71010; 76705; 80053; 81000; 83690; 83735; 85025; 87077; 87086; 87186; 93005; 94760; 96360; 96365; 96366; 96374; 96376; 99285; G0378; J1170; J1956; J3370; A9270-GY

== ENCOUNTER 2017-04-22 15:00 | Observation (INO) | payer MEDICARE ==
[2017-04-22] MEDS ORDERED: Zofran 4 MG/2 ML VIAL IV PRN (15:23)
[2017-04-22] MEDS: Sodium Chloride 0.9% W/ 20 mEq KCl/LITER 1,000 ML IV SCH (15:46)
--- NOTE | 2017-04-22 15:52 | PCM.HP ---
History of Present Illness - Chief Complaint Chief Complaint: Dehydration,hypoMG,elevated LFT's,Renal Failure History of Present Illness: is a 51 year old female pt with hx colon resection and ileostomy with subsequent suprapubic catheter placement, renal insufficiency, chronic dehydration and low serum magnesium. She was in infusion for her IV fluids and her Cr was 2.2. - When she came in she was feeling poorly, lots of muscle aching and fatigue; even after 1 L IV bolus she did not seem to feel any better so they called me for admission. Last weekend she took an unusually long break between her scheduled IV infusions to visit family in [place]. She had a long car ride yesterday and the day before walked about 2 miles in [facility]. She was sweating quite a bit and admits to taking in less fluid this weekend than usual. - Review of Systems Constitutional: Fatigue Abdominal/Gastrointestinal: Abdominal Pain, Nausea (did tolerate po today), Other (increased ostomy output over the weekend) Musculoskeletal: Myalgias All Other Systems: Reviewed and Negative Medications & Allergies Home Medications: Home Medication List Ascorbic Acid [Vitamin C] 1,000 mg PO DAILY 12/24/16 [History Confirmed 03/05/17 ] Cholecalciferol (Vitamin D3) [Vitamin D] 2,000 iu PO DAILY 12/24/16 [ History Confirmed 03/05/17] Diazepam 5 mg [Valium 5 MG] 5 mg PO TID 12/24/16 [History Confirmed ] Doxylamine Succinate [Unisom Sleep Aid] 25 mg PO HS 12/24/16 [History Confirmed 03/05/17] Hydrocodone Bit/Acetaminophen [[place] 7.5-325 Tablet] 1 each PO Q6HPRN PRN [History Confirmed 03/05/17] Multivitamin [Multivitamins] 1 each PO DAILY 12/24/16 [History Confirmed ] Pregabalin [Lyrica] 75 mg PO BID 12/24/16 [History Confirmed 03/05/17] Promethazine HCl 25 mg [Phenergan 25 mg] 25 mg PO BIDPRN PRN 01/07/17 [ History Confirmed 03/05/17] Lipase/Protease/Amylase [Pancrelipase EC 20,000 Capsule] 1 cap PO TID 01/13/17 [ History Confirmed 03/05/17] Midodrine HCl 10 mg PO TID 01/13/17 [History Confirmed 03/05/17] Octreotide Acetate 100 mcg SQ BID 01/13/17 [History Confirmed 03/05/17] Phenobarb/Hyoscy/Atropine/Scop [Belladonna-Phenobarb Elixir] 10 ml PO UD [History Confirmed 03/05/17] Paroxetine HCl [Paxil] 40 mg PO BID 01/20/17 [History Confirmed 03/05/17] Cyanocobalamin (Vitamin B-12) [Vitamin B12] 2,500 mcg PO DAILY 03/05/17 [ History Confirmed 03/05/17] Allergies/Adverse Reactions: Allergies Allergy/AdvReac Type Severity Reaction Status Date / Time oxybutynin Allergy Severe Verified 04/22/17 16:09 ampicillin Allergy Mild Verified 04/22/17 16:09 duloxetine [From Cymbalta] Allergy Mild Verified 04/22/17 16:09 erythromycin base Allergy Mild Verified 04/22/17 16:09 [Erythromycin Base] - Past Medical History Past Medical History: Yes Neurological History: Migraines ENT History: No Pertinent History Cardiac History: No Pertinent History Respiratory History: No Pertinent History Endocrine Medical History: No Pertinent History Musculoskelatal History: No Pertinent History GI Medical History: Colitis, Hepatitis, Other History: Other Pyscho-Social History: Anxiety, Depression Reproductive Disorders: No Pertinent History Comment: short gut syndrome,chronic diarrhea,small bowel bacterial overgrowth. hx bowel obstruction 04/03 and others stated in the past. stage 2 kidney disease - Past Surgical History Past Surgical History: Yes Neuro Surgical History: No Pertinent History Cardiac History: No Pertinent History Respiratory Surgery: No Pertinent History GI Surgical History: Colon Resection, Other Genitourinary Surgical Hx: Other Musculskeletal Surgical Hx: No Pertinent History Female Surgical History: Hysterectomy Other Surgical History: 100cm small bowel removal and resection and colon and large bowel removed, bladder surgen with suprapubic catheter placed. stent in rt ureter ,bladder revision with larger stent - Social History Smoking Status: Current every day smoker How long have you smoked: 25 years Exposure to second hand smoke: Yes Alcohol: None Drug Use: none - Physical Exam Vital Signs: Vital Signs - 24 hr Temp Pulse Resp BP Pulse Ox 04/22/17 15:23 98.0 F 74 109/73 04/22/17 15:18 98.0 F 74 18 109/73 95 General Appearance: mild distress (due to leg pain) Neurologic Exam: alert, oriented x 3, cooperative Eye Exam: eyes nml inspection Neck Exam: normal inspection, supple Respiratory Exam: normal breath sounds, lungs clear, No crackles/rales, No rhonchi, No wheezing Cardiovascular Exam: regular rate/rhythm, normal heart sounds, No murmur Gastrointestinal/Abdomen Exam: soft, tenderness (generalized), other ( hyperactive bowel sounds) Back Exam: normal inspection Extremity Exam: No pedal edema, No swelling Results - Radiology Impressions Radiology Exams & Impressions: Radiology Procedures Category Date Time Status CHEST 2 VIEWS (PA AND LAT) Routine Exams 04/22/17 15:30 Ordered Assessment/Plan (1) Dehydration Current Visit: Yes Status: Acute Assessment & Plan: Pt admitted for IV rehydration; she received 1 L NS in infusion, currently on NS with 20mEq Kcl at 125 cc/hr. Code(s): E86.0 - DEHYDRATION (2) Myalgia and myositis Current Visit: Yes Status: Acute Assessment & Plan: With her recent history of walking much more than usual while becoming dehydrated I have some concern for rhabdomyolysis - checking CK. Code(s): [id number] - (3) Elevated liver enzymes Current Visit: Yes Status: Acute Assessment & Plan: recheck in a.m. Code(s): R74.8 - ABNORMAL LEVELS OF OTHER SERUM ENZYMES (4) Chronic kidney disease (CKD) stage G3a/A1, moderately decreased glomerular filtration rate (GFR) between 45-59 mL/min/1.73 square meter and albuminuria creatinine ratio less than 30 mg/g Current Visit: Yes Status: Chronic Assessment & Plan: Dr. Carty to see pt today for Dr. Orourke, thank you! Code(s): N18.3 - CHRONIC KIDNEY DISEASE, STAGE 3 (MODERATE) (5) Hypokalemia Current Visit: No Status: Chronic Code(s): E87.6 - HYPOKALEMIA (6) Ileostomy care Current Visit: No Status: Chronic Code(s): Z43.2 - ENCOUNTER FOR ATTENTION TO ILEOSTOMY (7) Short bowel syndrome Current Visit: No Status: Chronic Code(s): K91.2 - POSTSURGICAL MALABSORPTION, NOT ELSEWHERE CLASSIFIED
[2017-04-22 15:53] LABS: Collection Type CATH
[2017-04-22 15:54] LABS: Bilirubin NEGATIVE (NEGATIVE); Blood 250 Ery/ul (0-5); COMPLETE URINE MICROSCOPIC? YES; Glucose NEGATIVE (NEGATIVE); Leukocyte Esterase 2+ (NEGATIVE)
[2017-04-22 16:00] LABS: Bacteria PACKED /HPF (NEGATIVE); Epithelial Cells RARE /HPF (FEW); WBC 50-100 /HPF (0-5)
--- NOTE | 2017-04-22 16:22 | XRAY ---
Indication: COPD. Comparison: January 07, 2017. PA/lateral chest remains hyperinflated and clear. Heart is not enlarged. Vascularity normal. Stable right Port-A-Cath. Bony thorax intact. Impression: Stable nonacute hyperinflated chest.
[2017-04-22 16:55] LABS: LIPASE 806 U/L (73-393)
[2017-04-22] MEDS ORDERED: NORCO 7.5/325 MG TAB PO PRN (16:57)
[2017-04-22] MEDS ORDERED: SCOPOLAMINE PO SCH (17:00)
[2017-04-22] MEDS ORDERED: ATROPINE PO SCH (17:00)
[2017-04-22] MEDS ORDERED: HYOSCYAMINE PO SCH (17:00)
[2017-04-22] MEDS ORDERED: PHENOBARBITAL PO SCH (17:00)
[2017-04-22] MEDS ORDERED: MEDICATION INTERVENTION MC PRN (17:10)
[2017-04-22] MEDS: MORPHINE SULFATE 10 MG/ML IV PRN ×2 (17:25→21:35)
[2017-04-22] MEDS: ROCEPHIN 1 Gm-D5w 50 ml Bag** 1 G/50 ML IVPB IV SCH (18:25)
[2017-04-22] MEDS: Lyrica 25 MG PO SCH (21:05)
[2017-04-22] MEDS ORDERED: OXYCODONE-ACETAMINOPHEN 10-325 PO PRN (21:05)
[2017-04-22] MEDS: Lyrica 50MG PO SCH (21:09)
[2017-04-22] MEDS: PROAMATINE 5 MG PO SCH (21:09)
[2017-04-22] MEDS: SANDOSTATIN 50MCG/ML SQ SCH (21:10)
[2017-04-22] MEDS: Valium 5 MG PO SCH (21:25)
[2017-04-22] MEDS ORDERED: DOXYLAMINE SUCCINATE 25 MG PO SCH (22:00)
[2017-04-22] MEDS ORDERED: LIPASE PO SCH (22:00)
[2017-04-22] MEDS ORDERED: Donnatol Liquid PO SCH (22:00)
[2017-04-22] MEDS ORDERED: PROTEASE PO SCH (22:00)
[2017-04-22] MEDS ORDERED: AMYLASE PO SCH (22:00)
[2017-04-22] MEDS ORDERED: NON-FORMULARY ITEM (Pregabalin [Lyrica] 75 MG) PO SCH (22:00)
[2017-04-23] MEDS: Sodium Chloride 0.9% W/ 20 mEq KCl/LITER 1,000 ML IV SCH ×2 (00:03→07:53)
[2017-04-23] MEDS: MORPHINE SULFATE 10 MG/ML IV PRN ×3 (03:59→13:14)
[2017-04-23 05:55] LABS: BASOPHIL % 0.8 % (0.0-0.4); Granulocytes % 40.1 % (36.0-66.0); Lymphocytes % 46.9 % (24.0-44.0); Mean Cell Volume 89.3 fl (78-100); Mean Corpuscular Hemoglobin 29.2 pg (26-32); Mean Platelet Volume 9.7 fl (6-9.5); Monocytes % 6.2 % (0.0-12.0); Platelet Count 256 K/mm3 (150-450); Red Blood Count 3.73 M/mm3 (4.1-5.4); Red Cell Distribution Width 17.9 % (11.5-14.0)
[2017-04-23 06:20] LABS: ALBUMIN 3.2 g/dL (3.4-5.0); ANION GAP 12.6 MEQ/L (5-15); BILIRUBIN,TOTAL 0.2 mg/dL (0.2-1.0); Carbon Dioxide 25.7 mEq/L (21-32); MAGNESIUM 2.4 mg/dL (1.8-2.4); Potassium 4.7 mEq/L (3.5-5.1); Total Protein 6.6 gm/dL (6.4-8.2)
[2017-04-23] MEDS: Donnatol Liquid PO SCH ×2 (07:42→11:35)
--- NOTE | 2017-04-23 08:38 | PCM.DS ---
Discharge Summary Date of Admission: 04/22/17 15:00 Admitting Physician: OJSE ZAMORANO Primary Care Provider: JOSE ZAMORANO Allergies Allergies oxybutynin Allergy (Severe, Verified 04/22/17 16:09) pharyngeal swelling ampicillin Allergy (Mild, Verified 04/22/17 16:09) [facility] duloxetine [From Cymbalta] Allergy (Mild, Verified 04/22/17 16:09) nausea erythromycin base [Erythromycin Base] Allergy (Mild, Verified 04/22/17 16:09) [facility] Summary - Hospital Course Hospital Course: Pt is 51 yo female with chronic renal insufficiency who was admitted directly after presenting to infusion (for scheduled IV fluids) with dehydration. She was rehydrated overnight and labs this morning are improved so far (Cr improved from 2.2 for 1.2 - lipase 800 yesterday, lab is pending this morning). Nephrology did see her yesterday. She had walked an unusually long distance over the weekend and her po intake had been decreased. She continues to complain of some muscle pain, particularly her anterior quadriceps muscles bilaterally, but this is improved. She has been up out of bed a small amount. If she tolerates po, is up out of bed more and feeling well she may be able to discharge home today, but if she continues having pain and her lipase is elevated she should stay on IV fluids and CLD here until tomorrow. - Vitals & Intake/Output Vital Signs: Vital Signs Temperature 97.8 F 04/23/17 07:21 Pulse Rate 70 04/23/17 07:21 Respiratory Rate 20 04/23/17 07:21 Blood Pressure 106/58 04/23/17 07:21 O2 Sat by Pulse Oximetry 97 04/23/17 07:21 Intake & Output: Intake & Output 04/20/17 04/21/17 04/22/17 04/23/17 11:59 11:59 11:59 11:59 Intake Total 3051 Output Total 2450 Balance 601 Weight 61.235 kg - Lab Result Diagrams: 04/23/17 05:19 04/23/17 05:19 Lab Results-Last 24 Hrs: Lab Results-Last 24 Hours 04/22/17 04/22/17 04/22/17 Range/Units 08:52 15:45 18:00 WBC (4.0-10.5) K/mm3 RBC (4.1-5.4) M/mm3 Hgb (12.0-16.0) gm/dl Hct (35-47) % MCV (78-100) fl MCH (26-32) pg MCHC (32-36) g/dl RDW (11.5-14.0) % Plt Count (150-450) K/mm3 MPV (6-9.5) fl Gran % (36.0-66.0) % Lymphocytes % (24.0-44.0) % Monocytes % (0.0-12.0) % Eosinophils % (0.00-5.0) % Basophils % (0.0-0.4) % Basophils # (0-0.4) Sodium (136-145) mEq/L Potassium (3.5-5.1) mEq/L Chloride (98-107) mEq/L Carbon Dioxide (21-32) mEq/L Anion Gap (5-15) MEQ/L BUN (9-20) mg/dL Creatinine (0.55-1.30) mg/dl Estimated GFR ML/MIN Glucose (70-110) MG/DL Calcium (8.5-10.1) mg/dL Magnesium (1.8-2.4) mg/dL Total Bilirubin (0.2-1.0) mg/dL AST (15-37) U/L ALT (12-78) U/L Alkaline Phosphatase (46-116) U/L Creatine Kinase 117 90 (26-192) U/L Serum Total Protein (6.4-8.2) gm/dL Albumin (3.4-5.0) g/dL Amylase 123 H (25-115) U/L Lipase 806 H (73-393) U/L Ur Collection Type CATH Urine Color YELLOW (YELLOW) Urine Appearance CLOUDY (CLEAR) Urine pH 5.0 (5-6) Ur Specific [employer] 1.020 (1.005-1.025) Urine Protein 50 (Negative) Urine Ketones NEGATIVE (NEGATIVE) Urine Blood 250 (0-5) Gregg/ul Urine Nitrite POSITIVE (NEGATIVE) Urine Bilirubin NEGATIVE (NEGATIVE) Urine Urobilinogen NORMAL (0-1) mg/dL Ur Leukocyte Esterase 2+ (NEGATIVE) Urine Microscopic RBC 5-10 (0-2) /HPF Urine Microscopic WBC 50-100 (0-5) /HPF Ur Epithelial Cells RARE (FEW) /HPF Urine Bacteria PACKED (NEGATIVE) /HPF Urine Glucose NEGATIVE (NEGATIVE) mg/dL Specimen Received 04/22/17 3845 04/23/17 04/23/17 Range/Units 05:19 05:19 WBC 5.0 (4.0-10.5) K/mm3 RBC 3.73 L (4.1-5.4) M/mm3 Hgb 10.9 L (12.0-16.0) gm/dl Hct 33.3 L (35-47) % MCV 89.3 (78-100) fl MCH 29.2 (26-32) pg MCHC 32.7 (32-36) g/dl RDW 17.9 H (11.5-14.0) % Plt Count 256 (150-450) K/mm3 MPV 9.7 H (6-9.5) fl Gran % 40.1 (36.0-66.0) % Lymphocytes % 46.9 H (24.0-44.0) % Monocytes % 6.2 (0.0-12.0) % Eosinophils % 6.0 H (0.00-5.0) % Basophils % 0.8 (0.0-0.4) % Basophils # 0.04 (0-0.4) Sodium 136 (136-145) mEq/L Potassium 4.7 (3.5-5.1) mEq/L Chloride 102 (98-107) mEq/L Carbon Dioxide 25.7 (21-32) mEq/L Anion Gap 12.6 (5-15) MEQ/L BUN 21 H (9-20) mg/dL Creatinine 1.21 (0.55-1.30) mg/dl Estimated GFR 50 ML/MIN Glucose 107 (70-110) MG/DL Calcium 8.2 L (8.5-10.1) mg/dL Magnesium 2.4 (1.8-2.4) mg/dL Total Bilirubin 0.20 (0.2-1.0) mg/dL AST 78 H (15-37) U/L ALT 132 H (12-78) U/L Alkaline Phosphatase 271 H (46-116) U/L Creatine Kinase (26-192) U/L Serum Total Protein 6.6 (6.4-8.2) gm/dL Albumin 3.2 L (3.4-5.0) g/dL Amylase (25-115) U/L Lipase (73-393) U/L Ur Collection Type Urine Color (YELLOW) Urine Appearance (CLEAR) Urine pH (5-6) Ur Specific [employer] (1.005-1.025) Urine Protein (Negative) Urine Ketones (NEGATIVE) Urine Blood (0-5) Gregg/ul Urine Nitrite (NEGATIVE) Urine Bilirubin (NEGATIVE) Urine Urobilinogen (0-1) mg/dL Ur Leukocyte Esterase (NEGATIVE) Urine Microscopic RBC (0-2) /HPF Urine Microscopic WBC (0-5) /HPF Ur Epithelial Cells (FEW) /HPF Urine Bacteria (NEGATIVE) /HPF Urine Glucose (NEGATIVE) mg/dL Specimen Received - Radiology Exams Ordered Rad Exams-Entire Visit: Radiology Procedures Category Date Time Status CHEST 2 VIEWS (PA AND LAT) Routine Exams 04/22/17 15:30 Completed - Procedures and Test Procedures and Tests throughout Hospitalization: Therapy Orders & Screens 04/22/17 17:06 Smoking Cessation Education Comment: Diagnosis: Dehydration,hypoMG,elevated LFT's,Renal Failure Smoking Status: Current every day smoker How long have you smoked: 25 years Have you smoked in the past 12 months: Yes Approximately how many cigarettes per day: 10 Do you dip or chew tobacco: No Discharge Exam General Appearance: no apparent distress Neurologic Exam: alert, oriented x 3, cooperative Skin Exam: normal color, warm, dry Respiratory Exam: normal breath sounds, lungs clear, No crackles/rales, No rhonchi, No wheezing Cardiovascular Exam: regular rate/rhythm, normal heart sounds, No murmur Gastrointestinal/Abdomen Exam: No distention Extremity Exam: No pedal edema, No swelling Back Exam: normal inspection Final Diagnosis/Problem List - Final Discharge Diagnosis/Problem (1) Dehydration Current Visit: Yes Status: Resolved (2) Pancreatitis Current Visit: Yes Status: Acute Assessment & Plan: recheck lipase; if still elevated will keep another day on IV fluids. If improved and pt feeling well later, up out of bed and tolerating po, will discharge home. (3) Myalgia and myositis Current Visit: Yes Status: Acute Assessment & Plan: some improvement. She does NOT have an elevated CK. (4) Elevated liver enzymes Current Visit: Yes Status: Chronic Assessment & Plan: Acute on c hronic at admission. (5) Chronic kidney disease (CKD) stage G3a/A1, moderately decreased glomerular filtration rate (GFR) between 45-59 mL/min/1.73 square meter and albuminuria creatinine ratio less than 30 mg/g Current Visit: Yes Status: Chronic (6) Hypokalemia Current Visit: No Status: Chronic Assessment & Plan: normal this morning (7) Ileostomy care Current Visit: No Status: Chronic (8) Short bowel syndrome Current Visit: No Status: Chronic - Discharge Disposition: Home, Self-Care Condition: Stable Prescriptions: No Action Pregabalin [Lyrica] 75 mg PO BID Multivitamin [Multivitamins] 1 each PO DAILY Hydrocodone Bit/Acetaminophen [[place] 7.5-325 Tablet] 1 each PO Q6HPRN PRN PRN Reason: Pain Doxylamine Succinate [Unisom Sleep Aid] 25 mg PO HS Diazepam 5 mg [Valium 5 MG] 5 mg PO TID Ascorbic Acid [Vitamin C] 1,000 mg PO DAILY Cholecalciferol (Vitamin D3) [Vitamin D] 2,000 iu PO DAILY Promethazine HCl 25 mg [Phenergan 25 mg] 25 mg PO BIDPRN PRN PRN Reason: Nausea Midodrine HCl 10 mg PO TID Lipase/Protease/Amylase [Pancrelipase EC 20,000 Capsule] 1 cap PO TID Octreotide Acetate 100 mcg SQ BID Phenobarb/Hyoscy/Atropine/Scop [Belladonna-Phenobarb Elixir] 10 ml PO UD Paroxetine HCl [Paxil] 40 mg PO DAILY Cyanocobalamin (Vitamin B-12) [Vitamin B12] 2,500 mcg PO DAILY Follow up with: JOSE ZAMORANO [Primary Care Provider] - 1 Week
[2017-04-23 09:01] LABS: LIPASE 478 U/L (73-393)
[2017-04-23] MEDS ORDERED: Paxil 20 MG PO SCH (10:00)
[2017-04-23] MEDS ORDERED: NON-FORMULARY ITEM (Paroxetine Hcl [Paxil] 40 MG) PO SCH (10:00)
[2017-04-23] MEDS ORDERED: NON-FORMULARY ITEM (Cyanocobalamin (Vitamin B-12) [Vitamin B12] 2,500 MCG) PO SCH (10:00)
[2017-04-23] MEDS ORDERED: VITAMIN D PO SCH (10:00)
[2017-04-23] MEDS: Lyrica 50MG PO SCH (10:04)
[2017-04-23] MEDS: Lyrica 25 MG PO SCH (10:04)
[2017-04-23] MEDS: Valium 5 MG PO SCH ×2 (10:05→15:58)
[2017-04-23] MEDS: PROAMATINE 5 MG PO SCH ×2 (10:05→15:58)
[2017-04-23] MEDS: ROCEPHIN 1 Gm-D5w 50 ml Bag** 1 G/50 ML IVPB IV SCH (10:06)
[2017-04-23] MEDS: SANDOSTATIN 50MCG/ML SQ SCH (10:20)
--- NOTE | 2017-04-23 10:22 | CONS ---
CONSULT DATE: 04/22/2017 REASON FOR CONSULT: Acute renal failure, volume electrolyte management. HISTORY: Miss Jeanna Woods is a pleasant 51 year-old female with significant history of chronic kidney disease stage III, colitis, hepatitis B, depression and short gut syndrome, admitted for generalized weakness and not feeling good. Recently she went for vacation to [facility]. She walked for two hours continuously. Today, she went to infusion center for IV fluids and magnesium replacement. Since she was not feeling good she was sent to the emergency room. She has chronic abdominal pain. She contributed it to her chronic pancreatitis. She denies any fever, chills, constipation, diarrhea, dizziness, lightheadedness, focal weakness. She denies any flank pain. REVIEW OF SYSTEMS: All of the twelve review of systems were negative except in history of present illness. PAST MEDICAL HISTORY: Colitis. Hepatitis B. Anxiety disorder. Depression. Chronic hypokalemia. Hypomagnesemia. Short gut syndrome. Chronic kidney disease stage III. Chronic pancreatitis. PAST SURGICAL HISTORY: Colon resection. Ileostomy bag. Hysterectomy. Tubal ligation. Adhesiolysis. Suprapubic catheter placement. HOME MEDICATIONS: Ascorbic acid 1,000 mg p.o. daily, cyanocobalamin 2,500 mcg daily, diazepam 5 mg p.o. t.i.d., doxylamine 25 mg p.o. q.h.s., [place] 7.5/325 mg tablet every six hours PRN, Midodrine 10 mg tablet t.i.d., multivitamin 1 tablet daily, octreotide acetate 100 mcg subcu b.i.d., paroxetine 40 mg p.o. daily, Belladonna/Phenobarbital elixir 10 mg p.o. daily, Lyrica 75 mg p.o. b.i.d., Promethazine 25 mg p.o. b.i.d. PRN. ALLERGIES: OXYBUTYNIN, AMPICILLIN, DULOXETINE, ERYTHROMYCIN. SOCIAL HISTORY: No history of smoking, alcohol use or any illicit drugs. FAMILY HISTORY: No one has kidney disease. PHYSICAL EXAMINATION: VITAL SIGNS: Temperature 98F, pulse 74, respiratory rate 18, blood pressure 109/73. GENERAL: Alert, oriented, lethargic. HEENT: Oral mucosa dry. NECK: Supple. CHEST: Clear to auscultation. HEART: S1 and S2 normal. ABDOMEN: Soft, no generalized tenderness, bowel sounds present. EXTREMITIES: No edema. No clubbing. No cyanosis. [employer]: No focal deficits. LAB DATA AND TESTS: BUN 38, creatinine 2.16, sodium 131, potassium 4, carbon dioxide 21.2, calcium 9.7, magnesium 1.4, AST 105, ALT 180, Anion gap 21.4. White blood cell 9.2, hemoglobin 14.7. UA showed specific gravity 1.020, leukocyte esterase positive, white blood cell 50-100 and nitrite positive. ASSESSMENT AND PLAN: 1) ACUTE RENAL FAILURE: Most likely secondary to volume depletion plus urinary tract infection. I agree with IV fluids. I will continue normal saline at 125 ml/hour. 2) URINARY TRACT INFECTION: UA suggestive of urinary tract infection. Will order urine culture. Will start her on ceftriaxone 1 gm IV daily. 3) CHRONIC KIDNEY DISEASE STAGE III: Her baseline serum creatinine varies from 1.2 to 1.5. Her chronic kidney disease is most likely secondary to multiple urinary tract infections due to volume depletion in the past. 4) HYPOMAGNESEMIA: As an outpatient she gets magnesium 1 gm on Friday, Friday and Friday. Today she received magnesium. Check magnesium level daily. 5) HISTORY OF HYPOKALEMIA WITH HIGH POTASSIUM LEVEL: Potassium level is good. Continue to monitor. In the past she was on high dose of Spironolactone. It seems like someone discontinued it due to her hypotension. 6) CHRONIC ABDOMINAL PAIN: Lipase and amylase pending. Her pain may be due to cystitis secondary to urinary tract infection. Will start ceftriaxone 1 gm IV daily. Thank you Dr. Haji for giving me the opportunity to participate in the care of this patient. I will follow this patient along with you.
[2017-04-23] MEDS ORDERED: PATIENT OWN MEDICATION PO SCH (16:30)
[2017-04-23 16:35] VITALS: BP 110/61; PULSE 62; O2SAT 96
== END 2017-04-23 17:25 | disposition home or self-care (01) ==
LOC: MED SURG 15:00 → UNDOADMOB 15:10
PROVIDERS: ADMIT Family Medicine; ATTEND Family Medicine
DX: E86.0 Dehydration (principal); K85.90 Acute pancreatitis without necrosis or infection, unspecified; M60.9 Myositis, unspecified; N17.9 Acute kidney failure, unspecified; N39.0 Urinary tract infection, site not specified; R74.8 Abnormal levels of other serum enzymes; N18.3 Chronic kidney disease, stage 3 (moderate); E83.42 Hypomagnesemia; B19.10 Unspecified viral hepatitis B without hepatic coma; E87.6 Hypokalemia; K52.9 Noninfective gastroenteritis and colitis, unspecified; K91.2 Postsurgical malabsorption, not elsewhere classified; Z43.2 Encounter for attention to ileostomy; Z79.899 Other long term (current) drug therapy; Z90.49 Acquired absence of other specified parts of digestive tract
CPT/HCPCS: 36415; 71020; 80053; 81000; 82150; 82550; 83690; 83735; 85025; 87040; 87077; 87086; 87186; G0378; J0696; J1642; J2270; J2354; A9270-GY

== ENCOUNTER 2017-05-20 08:13 | Inpatient (IN) | payer MEDICARE ==
[2017-05-20] MEDS ORDERED: Phenergan 25 MG INJ IV PRN (10:10)
[2017-05-20 10:24] LABS: BASOPHIL % 0.5 % (0.0-0.4); Eosinophil % 3.8 % (0.00-5.0); Granulocytes % 52.5 % (36.0-66.0); Lymphocytes % 35.6 % (24.0-44.0); Mean Cell Volume 90.3 fl (78-100); Mean Corpuscular Hemoglobin 30.3 pg (26-32); Mean Platelet Volume 9.3 fl (6-9.5); Monocytes % 7.6 % (0.0-12.0); Platelet Count 267 K/mm3 (150-450); Red Blood Count 4.22 M/mm3 (4.1-5.4); Red Cell Distribution Width 17.6 % (11.5-14.0); White Blood Count 5.8 K/mm3 (4.0-10.5)
[2017-05-20] MEDS ORDERED: Lactated Ringers 1,000 ML IV SCH ×2 (10:30)
[2017-05-20 10:51] LABS: ALBUMIN 4.2 g/dL (3.4-5.0); ANION GAP 11.7 MEQ/L (5-15); BILIRUBIN,TOTAL 0.2 mg/dL (0.2-1.0); Carbon Dioxide 29.5 mEq/L (21-32); MAGNESIUM 2.6 mg/dL (1.8-2.4); Potassium 5.7 mEq/L (3.5-5.1); Total Protein 8.7 gm/dL (6.4-8.2)
[2017-05-20] MEDS: DILAUDID 1 MG/1ML PCA IV PRN (10:57)
[2017-05-20] MEDS: Zofran 4 MG/2 ML VIAL IV PRN ×2 (11:04→21:40)
--- NOTE | 2017-05-20 11:45 | XRAY ---
Indication: Left upper quadrant pain, dehydration, chronic renal failure. Comparison: Chest exam April 22, 2017. 2 views of the abdomen demonstrates mild scattered stomach and bowel air-fluid leveling, ileus versus gastroenteritis. No focal bowel dilatation or obstruction. Right lower quadrant colostomy and cholecystectomy clips. Remaining solid organs osseous structures unremarkable. Single frontal chest again demonstrates normal heart, lungs, and bony thorax with a right-sided Port-A-Cath. Impression: 1. Fluid distended stomach and bowel loops with fluid leveling, ileus versus gastroenteritis. 2. Stable nonacute 1 view chest.
[2017-05-20 14:01] LABS: Bilirubin NEGATIVE (NEGATIVE); Blood 250 Ery/ul (0-5); COMPLETE URINE MICROSCOPIC? YES; Collection Type VOID; Glucose NEGATIVE (NEGATIVE); Leukocyte Esterase 2+ (NEGATIVE)
[2017-05-20 14:03] LABS: ADD URINE CULTURE? YES (NO); Bacteria FEW /HPF (NEGATIVE); Epithelial Cells FEW /HPF (FEW)
[2017-05-20] MEDS ORDERED: Ativan 2 MG/1 ML VIAL IV PRN (16:18)
[2017-05-20] MEDS ORDERED: SCOPOLAMINE PO SCH (16:30)
[2017-05-20] MEDS ORDERED: ATROPINE PO SCH (16:30)
[2017-05-20] MEDS ORDERED: HYOSCYAMINE PO SCH (16:30)
[2017-05-20] MEDS ORDERED: PHENOBARBITAL PO SCH (16:30)
[2017-05-20] MEDS: PROTONIX 40 MG IV IV SCH (16:33)
[2017-05-20] MEDS ORDERED: MEDICATION INTERVENTION MC PRN (16:40)
[2017-05-20] MEDS: PROAMATINE 5 MG PO SCH ×2 (17:32→23:46)
[2017-05-20] MEDS: Sodium Chloride 0.9% 1000 ML 1,000 ML IV SCH (18:58)
[2017-05-20] MEDS ORDERED: PROTEASE PO SCH (22:00)
[2017-05-20] MEDS ORDERED: AMYLASE PO SCH (22:00)
[2017-05-20] MEDS ORDERED: NON-FORMULARY ITEM (Pregabalin [Lyrica] 75 MG) PO SCH (22:00)
[2017-05-20] MEDS ORDERED: LIPASE PO SCH (22:00)
[2017-05-20] MEDS: Lyrica 25 MG PO SCH (22:40)
[2017-05-20] MEDS: SANDOSTATIN 50MCG/ML SQ SCH (22:46)
[2017-05-20] MEDS: PATIENT OWN MEDICATION PO SCH (23:14)
[2017-05-21] MEDS: Zofran 4 MG/2 ML VIAL IV PRN ×2 (02:18→14:00)
[2017-05-21] MEDS: Sodium Chloride 0.9% 1000 ML 1,000 ML IV SCH ×2 (05:35→15:07)
[2017-05-21 05:50] LABS: BASOPHIL % 0.3 % (0.0-0.4); Eosinophil % 3.5 % (0.00-5.0); Granulocytes % 52.3 % (36.0-66.0); Lymphocytes % 37.6 % (24.0-44.0); Mean Corpuscular Hemoglobin 30.3 pg (26-32); Mean Platelet Volume 9.8 fl (6-9.5); Monocytes % 6.3 % (0.0-12.0); Platelet Count 234 K/mm3 (150-450); Red Blood Count 3.43 M/mm3 (4.1-5.4); Red Cell Distribution Width 17.6 % (11.5-14.0)
[2017-05-21 06:10] LABS: ALBUMIN 3.2 g/dL (3.4-5.0); ANION GAP 9.3 MEQ/L (5-15); BILIRUBIN,TOTAL 0.3 mg/dL (0.2-1.0); Carbon Dioxide 29.6 mEq/L (21-32); MAGNESIUM 1.9 mg/dL (1.8-2.4); Potassium 4.9 mEq/L (3.5-5.1); Total Protein 6.8 gm/dL (6.4-8.2)
[2017-05-21] MEDS: Paxil 20 MG PO SCH (08:16)
[2017-05-21] MEDS: PROAMATINE 5 MG PO SCH ×3 (08:17→21:38)
[2017-05-21] MEDS: Lyrica 25 MG PO SCH ×2 (08:17→21:38)
--- NOTE | 2017-05-21 08:18 | PCM.NOTE ---
Date and Time: 05/21/17812 Subjective Assessment: Pt admitted from office yesterday with / abd pain. Continues to have abd pain, better with dilaudid BUNG REMOVER, 04/13 currently. Found on XR to have ileus vs gastroenteritis. Labs with lipase elevated. LFTs elevated as per her usual recently. This morning she is c/o suprapubic pressure, like her bladder is not emptying. Due to have suprapubic catheter changed tomorrow. - Review of Systems Constitutional: No Fever Abdominal/Gastrointestinal: Abdominal Pain Objective Exam General Appearance: mild distress, alert Neurologic Exam: oriented x 3, cooperative, other (up in chair) Skin Exam: normal color, warm, dry Respiratory Exam: normal breath sounds, lungs clear, No crackles/rales, No rhonchi, No wheezing Cardiovascular Exam: regular rate/rhythm, normal heart sounds, No murmur Gastrointestinal/Abdomen Exam: soft, tenderness (diffuse, most marked in epigastrum), other (ostomy in RLQ, suprapubic catheter present), No distention Extremity Exam: No pedal edema, No swelling Back Exam: normal inspection OBJECTIVE DATA Vital Signs: Vital Signs - 24 hr Temp Pulse Resp BP BP Pulse Ox 05/21/17 07:21 98.3 F 83 16 103/64 94 L 05/21/17 04:00 98.2 F 82 14 124/65 92 L 05/21/17 02:57 92 L 05/21/17 00:00 97.3 F 83 12 105/56 93 L 05/20/17 22:57 92 L 05/20/17 20:00 97.7 F 83 15 108/72 94 L 05/20/17 18:57 94 L 05/20/17 15:50 98.3 F 71 18 129/78 98 05/20/17 14:57 98 05/20/17 10:57 99 05/20/17 09:57 97.9 F 79 20 138/84 99 05/20/17 09:55 97.9 F 79 20 138/84 99 Pain Assessment - Last Documented Pain Intensity 7 Pain Scale Used 0-10 Pain Scale Intake and Output: Intake & Output 05/18/17 05/19/17 05/20/17 05/21/17 11:59 11:59 11:59 11:59 Intake Total 1026 Output Total 2100 Balance -1074 Weight 60.645 kg Lab Results: Lab Results-Last 24 Hours 05/20/17 05/20/17 05/20/17 Range/Units 10:14 10:14 13:50 WBC 5.8 (4.0-10.5) K/mm3 RBC 4.22 (4.1-5.4) M/mm3 Hgb 12.8 (12.0-16.0) gm/dl Hct 38.1 (35-47) % MCV 90.3 (78-100) fl MCH 30.3 (26-32) pg MCHC 33.6 (32-36) g/dl RDW 17.6 H (11.5-14.0) % Plt Count 267 (150-450) K/mm3 MPV 9.3 (6-9.5) fl Gran % 52.5 (36.0-66.0) % Lymphocytes % 35.6 (24.0-44.0) % Monocytes % 7.6 (0.0-12.0) % Eosinophils % 3.8 (0.00-5.0) % Basophils % 0.5 (0.0-0.4) % Basophils # 0.03 (0-0.4) Sodium 127 L (136-145) mEq/L Potassium 5.7 H (3.5-5.1) mEq/L Chloride 91 L (98-107) mEq/L Carbon Dioxide 29.5 (21-32) mEq/L Anion Gap 11.7 (5-15) MEQ/L BUN 27 H (9-20) mg/dL Creatinine 1.27 (0.55-1.30) mg/dl Estimated GFR 47 ML/MIN Glucose 98 (70-110) MG/DL Calcium 9.3 (8.5-10.1) mg/dL Magnesium 2.6 H (1.8-2.4) mg/dL Total Bilirubin 0.20 (0.2-1.0) mg/dL AST 368 H (15-37) U/L ALT 503 H (12-78) U/L Alkaline Phosphatase 440 H (46-116) U/L Serum Total Protein 8.7 H (6.4-8.2) gm/dL Albumin 4.2 (3.4-5.0) g/dL Amylase 86 (25-115) U/L Lipase 630 H (73-393) U/L Ur Collection Type VOID Urine Color YELLOW (YELLOW) Urine Appearance CLEAR (CLEAR) Urine pH 5.0 (5-6) Ur Specific [place] 1.010 (1.005-1.025) Urine Protein NEGATIVE (Negative) Urine Ketones NEGATIVE (NEGATIVE) Urine Blood 250 (0-5) Gregg/ul Urine Nitrite NEGATIVE (NEGATIVE) Urine Bilirubin NEGATIVE (NEGATIVE) Urine Urobilinogen NORMAL (0-1) mg/dL Ur Leukocyte Esterase 2+ (NEGATIVE) Urine Microscopic RBC 5-10 (0-2) /HPF Urine Microscopic WBC 10-15 (0-5) /HPF Ur Epithelial Cells FEW (FEW) /HPF Urine Bacteria FEW (NEGATIVE) /HPF Urine Culture Reflexed YES (NO) Urine Glucose NEGATIVE (NEGATIVE) mg/dL Specimen Received 05/20/17 1350 05/21/17 05/21/17 Range/Units 05:30 05:30 WBC 4.0 (4.0-10.5) K/mm3 RBC 3.43 L (4.1-5.4) M/mm3 Hgb 10.4 L (12.0-16.0) gm/dl Hct 31.9 L (35-47) % MCV 93.0 (78-100) fl MCH 30.3 (26-32) pg MCHC 32.6 (32-36) g/dl RDW 17.6 H (11.5-14.0) % Plt Count 234 (150-450) K/mm3 MPV 9.8 H (6-9.5) fl Gran % 52.3 (36.0-66.0) % Lymphocytes % 37.6 (24.0-44.0) % Monocytes % 6.3 (0.0-12.0) % Eosinophils % 3.5 (0.00-5.0) % Basophils % 0.3 (0.0-0.4) % Basophils # 0.01 (0-0.4) Sodium 134 L (136-145) mEq/L Potassium 4.9 (3.5-5.1) mEq/L Chloride 100 (98-107) mEq/L Carbon Dioxide 29.6 (21-32) mEq/L Anion Gap 9.3 (5-15) MEQ/L BUN 16 (9-20) mg/dL Creatinine 1.09 (0.55-1.30) mg/dl Estimated GFR 56 ML/MIN Glucose 102 (70-110) MG/DL Calcium 8.5 (8.5-10.1) mg/dL Magnesium 1.9 (1.8-2.4) mg/dL Total Bilirubin 0.30 (0.2-1.0) mg/dL AST 462 H (15-37) U/L ALT 665 H (12-78) U/L Alkaline Phosphatase 393 H (46-116) U/L Serum Total Protein 6.8 (6.4-8.2) gm/dL Albumin 3.2 L (3.4-5.0) g/dL Amylase 54 (25-115) U/L Lipase 381 (73-393) U/L Ur Collection Type Urine Color (YELLOW) Urine Appearance (CLEAR) Urine pH (5-6) Ur Specific [place] (1.005-1.025) Urine Protein (Negative) Urine Ketones (NEGATIVE) Urine Blood (0-5) Gregg/ul Urine Nitrite (NEGATIVE) Urine Bilirubin (NEGATIVE) Urine Urobilinogen (0-1) mg/dL Ur Leukocyte Esterase (NEGATIVE) Urine Microscopic RBC (0-2) /HPF Urine Microscopic WBC (0-5) /HPF Ur Epithelial Cells (FEW) /HPF Urine Bacteria (NEGATIVE) /HPF Urine Culture Reflexed (NO) Urine Glucose (NEGATIVE) mg/dL Specimen Received Radiology Exams: Radiology Procedures Category Date Time Status BLADDER [US] Routine Exams 05/21/17 Ordered OBSTR/ACUTE ABDOMEN SERIES Routine Exams 05/20/17 10:30 Completed Assessment/Plan (1) Ileus Current Visit: Yes Status: Acute Assessment & Plan: Will try CLD. Bowel sounds are good this morning. Code(s): K56.7 - ILEUS, UNSPECIFIED (2) Pancreatitis Current Visit: Yes Status: Acute Qualifiers: Chronicity: acute Pancreatitis type: idiopathic Acute pancreatitis complication: no infection or necrosis Qualified Code(s): K85.00 - Idiopathic acute pancreatitis without necrosis or infection Assessment & Plan: Lipase elevated yesterday - rechecking today. Code(s): K85.90 - ACUTE PANCREATITIS WITHOUT NECROSIS OR INFECTION, UNSP (3) Hyponatremia Current Visit: Yes Status: Acute Assessment & Plan: changed her IVF to NS last night - recheck this morning. Code(s): E87.1 - HYPO-OSMOLALITY AND HYPONATREMIA (4) Chronic kidney disease (CKD) stage G3a/A1, moderately decreased glomerular filtration rate (GFR) between 45-59 mL/min/1.73 square meter and albuminuria creatinine ratio less than 30 mg/g Current Visit: Yes Status: Chronic Assessment & Plan: Sees Dr. Orourke. Code(s): N18.3 - CHRONIC KIDNEY DISEASE, STAGE 3 (MODERATE) (5) Elevated liver enzymes Current Visit: No Status: Chronic Assessment & Plan: Recheck. Sees Dr. Castle. Code(s): R74.8 - ABNORMAL LEVELS OF OTHER SERUM ENZYMES
[2017-05-21] MEDS: PATIENT OWN MEDICATION PO SCH ×4 (08:31→21:38)
[2017-05-21] MEDS ORDERED: FLUCELVAX QUAD 2017-2018 SYR IM ONE (09:00)
--- NOTE | 2017-05-21 09:17 | XRAY ---
Indication: Suprapubic pressure. Two-dimensional sonogram of the urinary bladder performed. Comparison: December 09, 2016. There is a suprapubic catheter in situ. Urinary bladder is nominally distended with volume of 54 cc. Again no suspicious bladder mass or focal abnormality.
[2017-05-21] MEDS ORDERED: NON-FORMULARY ITEM (Paroxetine Hcl [Paxil] 40 MG) PO SCH (10:00)
[2017-05-21] MEDS: DILAUDID 1 MG/1ML PCA IV PRN ×3 (10:41→17:25)
[2017-05-21] MEDS: SANDOSTATIN 50MCG/ML SQ SCH ×2 (11:09→21:39)
[2017-05-21] MEDS ORDERED: Sodium Chloride 0.9% 1000 ML 1,000 ML IV STA (15:44)
[2017-05-21] MEDS: PROTONIX 40 MG IV IV SCH (16:27)
[2017-05-21] MEDS: Lactated Ringers 1,000 ML IV SCH (16:32)
[2017-05-22] MEDS: Lactated Ringers 1,000 ML IV SCH ×2 (03:12→16:05)
[2017-05-22 06:03] LABS: BASOPHIL % 0.5 % (0.0-0.4); Eosinophil % 5.1 % (0.00-5.0); Granulocytes % 51.1 % (36.0-66.0); Lymphocytes % 35.2 % (24.0-44.0); Mean Cell Volume 94.8 fl (78-100); Mean Platelet Volume 9.4 fl (6-9.5); Monocytes % 8.1 % (0.0-12.0); Platelet Count 225 K/mm3 (150-450); Red Blood Count 3.08 M/mm3 (4.1-5.4); Red Cell Distribution Width 17.5 % (11.5-14.0); White Blood Count 3.7 K/mm3 (4.0-10.5)
[2017-05-22 06:22] LABS: ALBUMIN 2.7 g/dL (3.4-5.0); ALKALINE PHOSPHATASE 331 U/L (46-116); ANION GAP 11.5 MEQ/L (5-15); BLOOD UREA NITROGEN 7 mg/dL (9-20); CHLORIDE 101 mEq/L (98-107); Carbon Dioxide 27.9 mEq/L (21-32); Glucose 111 MG/DL (70-110); MAGNESIUM 1.6 mg/dL (1.8-2.4); Potassium 4.1 mEq/L (3.5-5.1); SGOT/AST 165 U/L (15-37); SGPT/ALT 373 U/L (12-78); SODIUM 136 mEq/L (136-145); Total Protein 6.1 gm/dL (6.4-8.2)
[2017-05-22 06:27] LABS: Mean Corpuscular Hemoglobin 30.1 pg (26-32)
[2017-05-22] MEDS ORDERED: Magnesium 1 Gm / 100 Ml D5W*** 100 ML IV ONE (08:00)
[2017-05-22] MEDS ORDERED: Magnesium Sulfate 1 GM/2 ML VIAL IV ONE (08:00)
[2017-05-22] MEDS: PATIENT OWN MEDICATION PO SCH ×4 (08:03→23:06)
--- NOTE | 2017-05-22 08:52 | PCM.NOTE ---
Date and Time: 05/22/17 08 Subjective Assessment: Her abd pain is 7/10. Would like to try eating more. c/o edema of the R hand. - Review of Systems Constitutional: No Fever Abdominal/Gastrointestinal: Abdominal Pain Objective Exam General Appearance: mild distress, alert Neurologic Exam: oriented x 3, cooperative Skin Exam: normal color, warm, dry Respiratory Exam: normal breath sounds, lungs clear, No crackles/rales, No rhonchi, No wheezing Cardiovascular Exam: regular rate/rhythm, normal heart sounds, No murmur Gastrointestinal/Abdomen Exam: soft, normal bowel sounds, tenderness (diffuse, more so in epigastrum) OBJECTIVE DATA Vital Signs: Vital Signs - 24 hr Temp Pulse Resp BP BP Pulse Ox 05/22/17 07:17 97.8 F 65 18 96/51 97 05/22/17 05:25 95 05/22/17 03:31 98.5 F 68 12 105/57 96 05/22/17 03:11 98 05/22/17 01:25 96 05/22/17 00:00 97.7 F 65 12 95/65 93 L 05/21/17 23:11 93 L 05/21/17 21:25 98 05/21/17 20:13 97.7 F 74 16 108/62 98 05/21/17 19:11 98 05/21/17 17:25 97 05/21/17 16:00 97.4 F 79 18 151/66 97 05/21/17 11:27 98.6 F 76 16 114/59 138/84 96 05/21/17 10:41 94 L Oxygen-Last 24 hours Oxygen Flowrate (L/min)-RT 2 Oxygen Flowrate (L/min)-RT 2 Pain Assessment - Last Documented Pain Intensity 7 Pain Scale Used 0-10 Pain Scale Intake and Output: Intake & Output 05/19/17 05/20/17 05/21/17 05/22/17 11:59 11:59 11:59 11:59 Intake Total 1386 3884 Output Total 2100 1850 Balance -714 2034 Weight 60.645 kg Lab Results: Lab Results-Last 24 Hours 05/22/17 05/22/17 Range/Units 05:40 05:40 WBC 3.7 L (4.0-10.5) K/mm3 RBC 3.08 L (4.1-5.4) M/mm3 Hgb 9.3 L (12.0-16.0) gm/dl Hct 29.2 L (35-47) % MCV 94.8 (78-100) fl MCH 30.1 (26-32) pg MCHC 31.8 L (32-36) g/dl RDW 17.5 H (11.5-14.0) % Plt Count 225 (150-450) K/mm3 MPV 9.4 (6-9.5) fl Gran % 51.1 (36.0-66.0) % Lymphocytes % 35.2 (24.0-44.0) % Monocytes % 8.1 (0.0-12.0) % Eosinophils % 5.1 H (0.00-5.0) % Basophils % 0.5 (0.0-0.4) % Basophils # 0.02 (0-0.4) Sodium 136 (136-145) mEq/L Potassium 4.1 (3.5-5.1) mEq/L Chloride 101 (98-107) mEq/L Carbon Dioxide 27.9 (21-32) mEq/L Anion Gap 11.5 (5-15) MEQ/L BUN 7 L (9-20) mg/dL Creatinine 0.87 (0.55-1.30) mg/dl Estimated GFR > 60 ML/MIN Glucose 111 H (70-110) MG/DL Calcium 8.2 L (8.5-10.1) mg/dL Magnesium 1.6 L (1.8-2.4) mg/dL Total Bilirubin 0.20 (0.2-1.0) mg/dL AST 165 H (15-37) U/L ALT 373 H (12-78) U/L Alkaline Phosphatase 331 H (46-116) U/L Serum Total Protein 6.1 L (6.4-8.2) gm/dL Albumin 2.7 L (3.4-5.0) g/dL Radiology Exams: Radiology Procedures Category Date Time Status BLADDER [US] Routine Exams 05/21/17 Completed OBSTR/ACUTE ABDOMEN SERIES Routine Exams 05/20/17 10:30 Completed Assessment/Plan (1) Ileus Current Visit: Yes Status: Acute Assessment & Plan: Some improvement. Will try increasing diet today. Code(s): K56.7 - ILEUS, UNSPECIFIED (2) Pancreatitis Current Visit: Yes Status: Acute Qualifiers: Chronicity: acute Pancreatitis type: idiopathic Acute pancreatitis complication: no infection or necrosis Qualified Code(s): K85.00 - Idiopathic acute pancreatitis without necrosis or infection Assessment & Plan: LFTs are improved. Code(s): K85.90 - ACUTE PANCREATITIS WITHOUT NECROSIS OR INFECTION, UNSP (3) Hyponatremia Current Visit: Yes Status: Resolved Code(s): E87.1 - HYPO-OSMOLALITY AND HYPONATREMIA (4) Chronic kidney disease (CKD) stage G3a/A1, moderately decreased glomerular filtration rate (GFR) between 45-59 mL/min/1.73 square meter and albuminuria creatinine ratio less than 30 mg/g Current Visit: Yes Status: Chronic Assessment & Plan: renal function is improved today. Code(s): N18.3 - CHRONIC KIDNEY DISEASE, STAGE 3 (MODERATE) (5) Elevated liver enzymes Current Visit: No Status: Chronic Assessment & Plan: they are improved. Code(s): R74.8 - ABNORMAL LEVELS OF OTHER SERUM ENZYMES (6) Leukopenia Current Visit: Yes Status: Acute Assessment & Plan: mild this morning. will rechekc in a.m. Code(s): D72.819 - DECREASED WHITE BLOOD CELL COUNT, UNSPECIFIED
[2017-05-22] MEDS: Lyrica 25 MG PO SCH ×2 (10:46→22:48)
[2017-05-22] MEDS: Paxil 20 MG PO SCH (10:46)
[2017-05-22] MEDS: PROAMATINE 5 MG PO SCH ×3 (10:47→22:49)
[2017-05-22] MEDS: SANDOSTATIN 50MCG/ML SQ SCH ×2 (10:58→23:00)
[2017-05-22] MEDS ORDERED: IMODIUM 2 MG PO PRN (15:00)
[2017-05-22] MEDS ORDERED: PHARMACY DOSING REQUIRED: VANCOMYCIN MC ONE (16:45)
[2017-05-22] MEDS ORDERED: VANCOCIN 1 GM VIAL*** 1 GM in Sodium Chloride 0.9% 250 ML 250 ML IV SCH (16:45)
[2017-05-22] MEDS: PROTONIX 40 MG IV IV SCH (18:07)
[2017-05-23] MEDS: Lactated Ringers 1,000 ML IV SCH (04:35)
[2017-05-23] MEDS: DILAUDID 1 MG/1ML PCA IV PRN ×2 (05:42→09:32)
--- NOTE | 2017-05-23 06:49 | PCM.DS ---
Discharge Summary Date of Admission: 05/21/17 08:13 Date of Discharge: 05/23/17 Admitting Physician: JOSE ZAMORANO Primary Care Provider: JOSE ZAMORANO Allergies Allergies oxybutynin Allergy (Severe, Verified 05/20/17 10:31) pharyngeal swelling ampicillin Allergy (Mild, Verified 05/20/17 10:31) [facility] duloxetine [From Cymbalta] Allergy (Mild, Verified 05/20/17 10:31) nausea erythromycin base [Erythromycin Base] Allergy (Mild, Verified 05/20/17 10:31) [facility] Summary - Hospital Course Hospital Course: she presented with worsening abdominal pain found to have her chronic lft elevation mild lipase evaluation and ileus on abdominal imaging as well as hyponatremia. She was having bladder symptoms and was found to have urine cutlure + she was being treated with iv vancomycin but no evidence of pyelo seems more likely chronic cystitis with the suprapubic catheter given her bladder symptoms will continue treatment but given culture results and sensitivities will switch to macrobid. She was treated with pain control and iv hydration which resulted in lipase back to normal lfts improving, hyponatremia resolved renal function improved and she was tolerating po and stated pain was improved and she is discharged back to home with outpatient f/u. In addition to home med list she had a fentanyl patch on when she arrived but did not mention this as part of her home med list until it was found on secondary assessment and removed per order she states she gets this with pain mgmt in [facility]. - Vitals & Intake/Output Vital Signs: Vital Signs Temperature 97.4 F 05/23/17 04:00 Pulse Rate 78 05/23/17 04:00 Respiratory Rate 15 05/23/17 04:00 Blood Pressure 110/65 05/23/17 04:00 O2 Sat by Pulse Oximetry 90 L 05/23/17 04:00 Intake & Output: Intake & Output 05/20/17 05/21/17 05/22/17 05/23/17 11:59 11:59 11:59 11:59 Intake Total 1386 3884 3359 Output Total 2100 1850 1065 Balance -714 2034 2294 Weight 60.645 kg - Lab Result Diagrams: 05/22/17 05:40 05/22/17 05:40 Micro Results-Entire Visit: Microbiology 05/20/17 13:50 - Final Urine, Void Enterococcus Faecalis - Procedures and Test Procedures and Tests throughout Hospitalization: Therapy Orders & Screens 05/22/17 08:02 Incentive Spirometry Assessmen UD Comment: Diagnosis: ILEUS, ABDOMINAL PAIN Discharge Exam General Appearance: no apparent distress, other (drowsy sleeping but awakens to voice answers all questions appropriately and then goes back to sleep she states just tired. (it is early about 06:30 at time of evaluation)) Neurologic Exam: cooperative, No motor deficits Skin Exam: normal color, warm, dry, No pale Eye Exam: PERRL, EOMI, eyes nml inspection Ears, Nose, Throat Exam: normal ENT inspection, moist mucous membranes Neck Exam: normal inspection, non-tender, supple, full range of motion Respiratory Exam: normal breath sounds, lungs clear, No respiratory distress Cardiovascular Exam: regular rate/rhythm, normal heart sounds Gastrointestinal/Abdomen Exam: soft, No tenderness, No mass Extremity Exam: normal inspection, normal range of motion Back Exam: normal inspection, normal range of motion, No CVA tenderness, No vertebral tenderness Pelvic Exam: deferred Rectal Exam: deferred Final Diagnosis/Problem List - Final Discharge Diagnosis/Problem (1) Ileus Status: Acute (2) Nausea & vomiting Status: Resolved (3) Chronic kidney disease (CKD) stage G3a/A1, moderately decreased glomerular filtration rate (GFR) between 45-59 mL/min/1.73 square meter and albuminuria creatinine ratio less than 30 mg/g Status: Chronic (4) Crohns disease Status: Chronic (5) Elevated liver enzymes Status: Chronic (6) Hyponatremia Status: Resolved (7) Cystitis Status: Acute - Discharge Discharge Date: 05/23/17 Disposition: Home, Self-Care Condition: Stable Prescriptions: New Nitrofurantoin Macro 100 mg [Macrobid 100MG Capsule] 100 mg PO BID #10 Continue Pregabalin [Lyrica] 75 mg PO BID Multivitamin [Multivitamins] 1 each PO DAILY Hydrocodone Bit/Acetaminophen [[place] 7.5-325 Tablet] 1 each PO Q6HPRN PRN PRN Reason: Pain Doxylamine Succinate [Unisom Sleep Aid] 25 mg PO HS Diazepam 5 mg [Valium 5 MG] 5 mg PO TID Ascorbic Acid [Vitamin C] 1,000 mg PO DAILY Cholecalciferol (Vitamin D3) [Vitamin D] 2,000 iu PO DAILY Promethazine HCl 25 mg [Phenergan 25 mg] 25 mg PO BIDPRN PRN PRN Reason: Nausea Midodrine HCl 10 mg PO TID Lipase/Protease/Amylase [Pancrelipase EC 20,000 Capsule] 1 cap PO TID Octreotide Acetate 100 mcg SQ BID Phenobarb/Hyoscy/Atropine/Scop [Belladonna-Phenobarb Elixir] 10 ml PO ACHS Paroxetine HCl [Paxil] 40 mg PO DAILY Cyanocobalamin (Vitamin B-12) [Vitamin B12] 2,500 mcg PO DAILY Loperamide HCl 2 mg [Imodium 2 mg] 4 mg PO UD PRN MDD 24 mg PRN Reason: Diarrhea Instructions: Dehydration -- Adult, Abdominal Pain-Adult Follow up with: JOSE ZAMORANO [Primary Care Provider] - 06/02/17 11:15 am Forms: Discharge Instructions
[2017-05-23 07:04] VITALS: BP 98/66; PULSE 68; O2SAT 96
[2017-05-23] MEDS: PATIENT OWN MEDICATION PO SCH ×2 (07:56→08:28)
[2017-05-23] MEDS: SANDOSTATIN 50MCG/ML SQ SCH (09:12)
[2017-05-23] MEDS: Paxil 20 MG PO SCH (09:13)
[2017-05-23] MEDS: PROAMATINE 5 MG PO SCH (09:13)
[2017-05-23] MEDS: Lyrica 25 MG PO SCH (09:13)
[2017-05-25] MEDS ORDERED: TROUGH DRUG LEVELS IJ ONE (09:30)
== END 2017-05-23 10:12 | disposition home or self-care (01) | DRG 999 ==
LOC: MED SURG 08:13 → OBSVTOIN 05-21 08:13
PROVIDERS: ADMIT Family Medicine; ATTEND Family Medicine
DX: K56.7 Ileus, unspecified (principal); K85.90 Acute pancreatitis without necrosis or infection, unspecified; E87.1 Hypo-osmolality and hyponatremia; K50.90 Crohn's disease, unspecified, without complications; N18.3 Chronic kidney disease, stage 3 (moderate); R74.8 Abnormal levels of other serum enzymes; R60.9 Edema, unspecified; D72.819 Decreased white blood cell count, unspecified; E86.0 Dehydration; N30.90 Cystitis, unspecified without hematuria
CPT/HCPCS: 36415; 74022; 76705; 80053; 81000; 82150; 83690; 83735; 85025; 87077; 87086; 87186; 93268; 94760; G0008; G0378; J1170; J1642; J2354; J2405; J3370; J3475; 90682; A9270-GY

== ENCOUNTER 2017-06-23 11:46 | Inpatient (IN) | payer MEDICARE ==
[2017-06-23 12:10] LABS: LIPASE 691 U/L (73-393)
[2017-06-23] MEDS ORDERED: Magnesium 1 Gm / 100 Ml D5W*** 100 ML IV ONE (13:19)
[2017-06-23] MEDS ORDERED: POTASSIUM CHLORIDE 20 mEq IN WATER 100ML 20 MEQ/100 ML BAG IV SCH (13:30)
[2017-06-23] MEDS ORDERED: Potassium Chloride 40 MEQ/20 ML VIAL 40 MEQ, Magnesium Sulfate 1 GM/2 ML VIAL*** 1 GM i... IV ONE ×3 (14:00)
[2017-06-23] MEDS: Lactated Ringers 1,000 ML IV SCH ×2 (14:21→22:40)
[2017-06-23] MEDS ORDERED: Phenergan 25 MG INJ IV PRN (14:54)
[2017-06-23] MEDS ORDERED: MORPHINE SULFATE 10 MG/ML IV PRN (14:54)
[2017-06-23] MEDS ORDERED: MEDICATION INTERVENTION MC PRN (15:51)
[2017-06-23] MEDS ORDERED: SCOPOLAMINE PO SCH (16:30)
[2017-06-23] MEDS ORDERED: HYOSCYAMINE PO SCH (16:30)
[2017-06-23] MEDS ORDERED: PHENOBARBITAL PO SCH (16:30)
[2017-06-23] MEDS ORDERED: ATROPINE PO SCH (16:30)
[2017-06-23] MEDS: PATIENT OWN MEDICATION PO SCH ×5 (17:26→21:11)
[2017-06-23] MEDS: Valium 5 MG PO SCH (17:26)
--- NOTE | 2017-06-23 19:43 | PCM.HP ---
History of Present Illness - Chief Complaint Chief Complaint: Dehydration, vomiting, oliguria History of Present Illness: is a 52 year old female pt of mine with chronic renal failure, liver disease, and pancreatitis who went to see Dr. Orourke today for a follow up visit. She had been having 3d of abd pain with vomiting. Pain is epigastric, currently 8/10, was 7/[address] in [address] Orourke's office. Her labs were done today and Cr was elevated to 2.5 and she was in obvious pain so he called me and I did a direct admission. He ordered her fluids. She has a history of colon resection with ileostomy and suprapubic catheter placement. Her ileostomy has been pouring out large amounts of liquid stool. She had a very small amount of urine over the weekend, 75 cc for all 3 days. Denies fever. Did start to have a cough over the weekend. - Review of Systems Constitutional: Fatigue, No Fever Respiratory: Cough, Short Of Breath Cardiac: No Syncope Abdominal/Gastrointestinal: Abdominal Pain, Nausea, Diarrhea Genitourinary Symptoms: Other (oliguria) Neurological: Dizziness (when standing over the weekend) Psychological: Anxiety, Depression, No Suicidal Ideations All Other Systems: Reviewed and Negative Medications & Allergies Home Medications: Home Medication List Ascorbic Acid [Vitamin C] 1,000 mg PO DAILY 12/24/16 [History Confirmed 06/23/17 ] Cholecalciferol (Vitamin D3) [Vitamin D] 2,000 iu PO DAILY 12/24/16 [ History Confirmed 06/23/17] Diazepam 5 mg [Valium 5 MG] 5 mg PO TID 12/24/16 [History Confirmed ] Doxylamine Succinate [Unisom Sleep Aid] 25 mg PO HS 12/24/16 [History Confirmed 06/23/17] Hydrocodone Bit/Acetaminophen [[place] 7.5-325 Tablet] 1 each PO Q6HPRN PRN [History Confirmed 06/23/17] Multivitamin [Multivitamins] 1 each PO DAILY 12/24/16 [History Confirmed ] Pregabalin [Lyrica] 75 mg PO BID 12/24/16 [History Confirmed 06/23/17] Promethazine HCl 25 mg [Phenergan 25 mg] 25 mg PO BIDPRN PRN 01/07/17 [ History Confirmed 06/23/17] Lipase/Protease/Amylase [Pancrelipase EC 20,000 Capsule] 1 cap PO TID 01/13/17 [ History Confirmed 06/23/17] Midodrine HCl 10 mg PO TID 01/13/17 [History Confirmed 06/23/17] Octreotide Acetate 100 mcg SQ BID 01/13/17 [History Confirmed 06/23/17] Phenobarb/Hyoscy/Atropine/Scop [Belladonna-Phenobarb Elixir] 10 ml PO ACHS 01/13 [History Confirmed 06/23/17] Paroxetine HCl [Paxil] 40 mg PO DAILY 01/20/17 [History Confirmed 06/23/17] Cyanocobalamin (Vitamin B-12) [Vitamin B12] 2,500 mcg PO DAILY 03/05/17 [ History Confirmed 06/23/17] Loperamide HCl 2 mg [Imodium 2 mg] 3 cap PO TID MDD 24 mg 05/22/17 [ History Confirmed 06/23/17] Allergies/Adverse Reactions: Allergies Allergy/AdvReac Type Severity Reaction Status Date / Time oxybutynin Allergy Severe Verified 06/23/17 12:50 ampicillin Allergy Mild Verified 06/23/17 12:50 duloxetine [From Cymbalta] Allergy Mild Verified 06/23/17 12:50 erythromycin base Allergy Mild Verified 06/23/17 12:50 [Erythromycin Base] - Past Medical History Past Medical History: Yes Neurological History: Migraines ENT History: No Pertinent History Cardiac History: No Pertinent History Respiratory History: No Pertinent History Endocrine Medical History: No Pertinent History Musculoskelatal History: No Pertinent History GI Medical History: Colitis, Hepatitis, Pancreatitis, Other History: Renal Disease, Other Pyscho-Social History: Anxiety, Depression Reproductive Disorders: No Pertinent History Comment: short gut syndrome,chronic diarrhea,small bowel bacterial overgrowth. hx bowel obstruction 04/03 and others stated in the past. stage 3 kidney disease - Female History Are you now?: No - Past Surgical History Past Surgical History: Yes Neuro Surgical History: No Pertinent History Cardiac History: No Pertinent History Respiratory Surgery: No Pertinent History GI Surgical History: Cholecystectomy, Colon Resection, Other Genitourinary Surgical Hx: Other Musculskeletal Surgical Hx: No Pertinent History Female Surgical History: Hysterectomy Other Surgical History: 100cm small bowel removal and resection and colon and large bowel removed, bladder surgen with suprapubic catheter placed. stent in rt ureter ,bladder revision with larger stent. pt states she is scheduled for a liver biopsy with Dr. Castle on 06/16/17 - Social History Smoking Status: Heavy tobacco smoker How long have you smoked: 20 Exposure to second hand smoke: Yes Alcohol: None Drug Use: none - Physical Exam Vital Signs: Vital Signs - 24 hr Temp Pulse Resp BP Pulse Ox 06/23/17 19:34 97.7 F 87 18 109/62 98 06/23/17 16:00 98.1 F 79 18 101/58 97 06/23/17 12:07 97.8 F 87 18 112/80 98 General Appearance: no apparent distress, alert Neurologic Exam: oriented x 3, cooperative Eye Exam: eyes nml inspection Ears, Nose, Throat Exam: moist mucous membranes Neck Exam: normal inspection, non-tender, No lymphadenopathy Respiratory Exam: normal breath sounds (good air exchange), wheezing (throughout , expiratory, moderate), No crackles/rales, No rhonchi Cardiovascular Exam: regular rate/rhythm, normal heart sounds, No murmur Gastrointestinal/Abdomen Exam: soft, normal bowel sounds, tenderness ( generalized, but most marked in epigastrum), other (ileostomy present in RLQ. Suprapubic catheter present without erythema or exudate.), No distention, No mass Back Exam: normal inspection Extremity Exam: No pedal edema, No swelling Skin Exam: normal color, No warm, No dry Results - Labs Lab/Micro Results: Lab Results-Last 24 Hours 06/23/17 Range/Units 08:22 Amylase 146 H (25-115) U/L Lipase 691 H (73-393) U/L - Radiology Impressions Radiology Exams & Impressions: Radiology Procedures Category Date Time Status CHEST 2 VIEWS (PA AND LAT) Routine Exams 06/23/17 Ordered - Other Procedures and Tests Respiratory Therapy 06/23/17 19:36 Respiratory MDI Q6H Assessment/Plan (1) Pancreatitis Current Visit: Yes Status: Acute Qualifiers: Pancreatitis type: idiopathic Acute pancreatitis complication: no infection or necrosis Assessment & Plan: On IV fluids. Recheck amylase/lipase in a.m. Code(s): K85.90 - ACUTE PANCREATITIS WITHOUT NECROSIS OR INFECTION, UNSP (2) Dehydration Current Visit: No Status: Acute Assessment & Plan: IVF per Dr. Orourke, thank you. Code(s): E86.0 - DEHYDRATION (3) Oliguria Current Visit: No Status: Acute Assessment & Plan: I think prerenal azotemia, will monitor. Code(s): R34 - ANURIA AND OLIGURIA (4) Chronic kidney disease (CKD) stage G3a/A1, moderately decreased glomerular filtration rate (GFR) between 45-59 mL/min/1.73 square meter and albuminuria creatinine ratio less than 30 mg/g Current Visit: No Status: Chronic Assessment & Plan: recheck in a.m., acutely worse today. Code(s): N18.3 - CHRONIC KIDNEY DISEASE, STAGE 3 (MODERATE) (5) Elevated liver enzymes Current Visit: No Status: Chronic Assessment & Plan: continue to observe. Sees Dr. Castle. Code(s): R74.8 - ABNORMAL LEVELS OF OTHER SERUM ENZYMES (6) Ileostomy care Current Visit: No Status: Chronic Code(s): Z43.2 - ENCOUNTER FOR ATTENTION TO ILEOSTOMY (7) Short bowel syndrome Current Visit: No Status: Chronic Assessment & Plan: I started her on CLD when she entered the hospital, but historically she has a large liquid output from the ileostomy on that regimen. After evaluating her in person, I did change her to a regular diet with the understanding that she will carefully choose foods that promote more solid bowels while she is here. Code(s): K91.2 - POSTSURGICAL MALABSORPTION, NOT ELSEWHERE CLASSIFIED
[2017-06-23] MEDS: DILAUDID 1 MG/1ML PCA IV PRN (20:23)
[2017-06-23] MEDS: LYRICA 75 MG CAP PO SCH (21:10)
[2017-06-23] MEDS: SANDOSTATIN 50MCG/ML SQ SCH (21:20)
[2017-06-23] MEDS ORDERED: LIPASE PO SCH (22:00)
[2017-06-23] MEDS ORDERED: DOXYLAMINE SUCCINATE 25 MG PO SCH (22:00)
[2017-06-23] MEDS ORDERED: AMYLASE PO SCH (22:00)
[2017-06-23] MEDS ORDERED: PROTEASE PO SCH (22:00)
[2017-06-23] MEDS: PROVENTIL COMMON CANISTER IH SCH (23:24)
[2017-06-24] MEDS: Valium 5 MG PO SCH ×3 (04:42→17:36)
[2017-06-24 05:39] LABS: BASOPHIL % 0.3 % (0.0-0.4); Eosinophil % 4.7 % (0.00-5.0); Granulocytes % 45.2 % (36.0-66.0); Lymphocytes % 43.9 % (24.0-44.0); Mean Cell Volume 95.7 fl (78-100); Mean Corpuscular Hemoglobin 30.7 pg (26-32); Mean Platelet Volume 9.6 fl (6-9.5); Monocytes % 5.9 % (0.0-12.0); Platelet Count 260 K/mm3 (150-450); Red Blood Count 3.22 M/mm3 (4.1-5.4); Red Cell Distribution Width 15.5 % (11.5-14.0); White Blood Count 5.9 K/mm3 (4.0-10.5)
[2017-06-24] MEDS ORDERED: Narcan 0.4 MG/ML IV PRN (06:09)
[2017-06-24 06:18] LABS: ALBUMIN 3.4 g/dL (3.4-5.0); ANION GAP 13.2 MEQ/L (5-15); BILIRUBIN,TOTAL 0.2 mg/dL (0.2-1.0); Carbon Dioxide 24.8 mEq/L (21-32); MAGNESIUM 2.1 mg/dL (1.8-2.4); Potassium 4.3 mEq/L (3.5-5.1); Total Protein 7.1 gm/dL (6.4-8.2)
[2017-06-24] MEDS: Lactated Ringers 1,000 ML IV SCH ×2 (06:35→15:22)
[2017-06-24] MEDS: PATIENT OWN MEDICATION PO SCH ×9 (07:29→22:23)
[2017-06-24] MEDS: SANDOSTATIN 50MCG/ML SQ SCH ×2 (07:34→20:59)
[2017-06-24] MEDS: PROVENTIL COMMON CANISTER IH SCH ×3 (07:37→19:04)
[2017-06-24] MEDS: LYRICA 75 MG CAP PO SCH ×2 (08:13→20:59)
[2017-06-24] MEDS: Paxil 20 MG PO SCH (08:14)
--- NOTE | 2017-06-24 09:01 | PCM.NOTE ---
Date and Time: 06/24/17 0859 Subjective Assessment: She is up out of bed to empty her ostomy bag - it is still producing large amounts of liquid. She did start producing urine well this morning. She is c/o lower abd pressure and some LUQ pain today. Jama po. - Review of Systems Constitutional: No Fever Abdominal/Gastrointestinal: Abdominal Pain Objective Exam General Appearance: no apparent distress, alert Neurologic Exam: oriented x 3, cooperative Skin Exam: normal color, warm, dry Respiratory Exam: normal breath sounds, lungs clear, No crackles/rales, No rhonchi, No wheezing Cardiovascular Exam: regular rate/rhythm, normal heart sounds, No murmur Gastrointestinal/Abdomen Exam: soft, normal bowel sounds, tenderness ( generalized, worse in epigastrum, LUQ and lower abd) Extremity Exam: swelling (mild edema hands bilat), No pedal edema Back Exam: normal inspection OBJECTIVE DATA Vital Signs: Vital Signs - 24 hr Temp Pulse Resp BP Pulse Ox 06/24/17 07:59 96 F 83 20 94/56 96 06/24/17 07:35 70 18 98 06/24/17 06:45 98 06/24/17 03:28 97.8 F 78 16 106/58 98 06/24/17 00:00 97.6 F 75 16 94/52 97 06/23/17 23:47 78 20 97 06/23/17 20:23 98 06/23/17 19:34 97.7 F 87 18 109/62 98 06/23/17 16:00 98.1 F 79 18 101/58 97 06/23/17 12:07 97.8 F 87 18 112/80 98 Pain Assessment - Last Documented Pain Intensity 8 Pain Scale Used 0-10 Pain Scale Intake and Output: Intake & Output 06/21/17 06/22/17 06/23/17 06/24/17 11:59 11:59 11:59 11:59 Intake Total 1549 Output Total 2650 Balance -1101 Weight 59.285 kg Lab Results: Lab Results-Last 24 Hours 06/23/17 06/23/17 06/24/17 Range/Units 08:22 21:00 05:10 WBC 5.9 (4.0-10.5) K/mm3 RBC 3.22 L (4.1-5.4) M/mm3 Hgb 9.9 L (12.0-16.0) gm/dl Hct 30.8 L (35-47) % MCV 95.7 (78-100) fl MCH 30.7 (26-32) pg MCHC 32.1 (32-36) g/dl RDW 15.5 H (11.5-14.0) % Plt Count 260 (150-450) K/mm3 MPV 9.6 H (6-9.5) fl Gran % 45.2 (36.0-66.0) % Lymphocytes % 43.9 (24.0-44.0) % Monocytes % 5.9 (0.0-12.0) % Eosinophils % 4.7 (0.00-5.0) % Basophils % 0.3 (0.0-0.4) % Basophils # 0.02 (0-0.4) Sodium (136-145) mEq/L Potassium 4.3 (3.5-5.1) mEq/L Chloride (98-107) mEq/L Carbon Dioxide (21-32) mEq/L Anion Gap (5-15) MEQ/L BUN (9-20) mg/dL Creatinine (0.55-1.30) mg/dl Estimated GFR ML/MIN Glucose (70-110) MG/DL Calcium (8.5-10.1) mg/dL Magnesium (1.8-2.4) mg/dL Total Bilirubin (0.2-1.0) mg/dL AST (15-37) U/L ALT (12-78) U/L Alkaline Phosphatase (46-116) U/L Serum Total Protein (6.4-8.2) gm/dL Albumin (3.4-5.0) g/dL Amylase 146 H (25-115) U/L Lipase 691 H (73-393) U/L 06/24/17 Range/Units 05:10 WBC (4.0-10.5) K/mm3 RBC (4.1-5.4) M/mm3 Hgb (12.0-16.0) gm/dl Hct (35-47) % MCV (78-100) fl MCH (26-32) pg MCHC (32-36) g/dl RDW (11.5-14.0) % Plt Count (150-450) K/mm3 MPV (6-9.5) fl Gran % (36.0-66.0) % Lymphocytes % (24.0-44.0) % Monocytes % (0.0-12.0) % Eosinophils % (0.00-5.0) % Basophils % (0.0-0.4) % Basophils # (0-0.4) Sodium 134 L (136-145) mEq/L Potassium 4.3 (3.5-5.1) mEq/L Chloride 100 (98-107) mEq/L Carbon Dioxide 24.8 (21-32) mEq/L Anion Gap 13.2 (5-15) MEQ/L BUN 33 H (9-20) mg/dL Creatinine 1.26 (0.55-1.30) mg/dl Estimated GFR 47 ML/MIN Glucose 87 (70-110) MG/DL Calcium 8.4 L (8.5-10.1) mg/dL Magnesium 2.1 (1.8-2.4) mg/dL Total Bilirubin 0.20 (0.2-1.0) mg/dL AST 69 H (15-37) U/L ALT 148 H (12-78) U/L Alkaline Phosphatase 265 H (46-116) U/L Serum Total Protein 7.1 (6.4-8.2) gm/dL Albumin 3.4 (3.4-5.0) g/dL Amylase 119 H (25-115) U/L Lipase 606 H (73-393) U/L Radiology Exams: Radiology Procedures Category Date Time Status CHEST 2 VIEWS (PA AND LAT) Routine Exams 06/23/17 Taken Assessment/Plan (1) Pancreatitis Current Visit: Yes Status: Acute Qualifiers: Pancreatitis type: idiopathic Acute pancreatitis complication: no infection or necrosis Assessment & Plan: lipase still elevated this morning. continue IV fluids, eating is ok, up out of bed Code(s): K85.90 - ACUTE PANCREATITIS WITHOUT NECROSIS OR INFECTION, UNSP (2) Dehydration Current Visit: No Status: Acute Assessment & Plan: much improved, cr much better this a.m. Code(s): E86.0 - DEHYDRATION (3) Oliguria Current Visit: No Status: Resolved Code(s): R34 - ANURIA AND OLIGURIA (4) Chronic kidney disease (CKD) stage G3a/A1, moderately decreased glomerular filtration rate (GFR) between 45-59 mL/min/1.73 square meter and albuminuria creatinine ratio less than 30 mg/g Current Visit: No Status: Chronic Code(s): N18.3 - CHRONIC KIDNEY DISEASE, STAGE 3 (MODERATE) (5) Elevated liver enzymes Current Visit: No Status: Chronic Code(s): R74.8 - ABNORMAL LEVELS OF OTHER SERUM ENZYMES (6) Ileostomy care Current Visit: No Status: Chronic Code(s): Z43.2 - ENCOUNTER FOR ATTENTION TO ILEOSTOMY (7) Short bowel syndrome Current Visit: No Status: Chronic Code(s): K91.2 - POSTSURGICAL MALABSORPTION, NOT ELSEWHERE CLASSIFIED
--- NOTE | 2017-06-24 09:24 | XRAY ---
Indication: Cough and wheezing. Comparison: May 20, 2017. PA/lateral chest again hyperinflated and clear with a right-sided Port-A-Cath. Heart is not enlarged. Vascularity normal. Bony thorax intact. No new/acute findings. Impression: Stable nonacute hyperinflated chest. Comment: Preliminary interpretation was made by [facility]. No discrepancy.
[2017-06-24] MEDS ORDERED: NON-FORMULARY ITEM (Paroxetine Hcl [Paxil] 40 MG) PO SCH (10:00)
[2017-06-24] MEDS: IMODIUM 2 MG PO SCH (22:23)
[2017-06-25] MEDS: Lactated Ringers 1,000 ML IV SCH (03:08)
[2017-06-25] MEDS: Valium 5 MG PO SCH ×3 (04:24→18:32)
[2017-06-25] MEDS: DILAUDID 1 MG/1ML PCA IV PRN (05:54)
[2017-06-25 06:44] LABS: Mean Corpuscular Hemoglobin 31.1 pg (26-32); Mean Platelet Volume 9.8 fl (6-9.5); Platelet Count 244 K/mm3 (150-450); Red Blood Count 3.02 M/mm3 (4.1-5.4); Red Cell Distribution Width 15.5 % (11.5-14.0)
[2017-06-25 06:57] LABS: ALBUMIN 3.5 g/dL (3.4-5.0); ANION GAP 12.8 MEQ/L (5-15); BILIRUBIN,TOTAL 0.2 mg/dL (0.2-1.0); Carbon Dioxide 25.6 mEq/L (21-32); Potassium 4.9 mEq/L (3.5-5.1); Total Protein 6.9 gm/dL (6.4-8.2)
[2017-06-25] MEDS: PROVENTIL COMMON CANISTER IH SCH ×5 (07:55→19:15)
[2017-06-25] MEDS ORDERED: MEDICATION INTERVENTION MC PRN (08:04)
--- NOTE | 2017-06-25 08:08 | CONS ---
CONSULT DATE: 06/24/2017 HISTORY: Jeanna Woods is a pleasant 52 year-old female with significant history of chronic kidney disease stage III, hepatitis B, colitis, depression and short gut syndrome admitted for severe abdominal pain. On the day of admission she saw Dr. Orourke and then she came for infusion. After that she started having severe pain and vomiting. She called her primary and that led to direct admission. She was found to have elevated serum creatinine of 2.5. Her urine output was also decreased. Now she is feeling slightly better but she is still having abdominal pain. Her colostomy output has increased. She denies any fever, chills, dizziness, lightheaded or focal dizziness. REVIEW OF SYSTEMS: All of the twelve review of systems were negative except in history of present illness. PAST MEDICAL HISTORY: Chronic kidney disease stage III, colitis, hepatitis B, depression, anxiety, chronic hypokalemia, chronic hypomagnesemia, short gut syndrome, chronic pancreatitis. PAST SURGICAL HISTORY: Colon resection, ileostomy bag placement, hysterectomy, tubal ligation, adhesiolysis, suprapubic catheter placement. MEDICATIONS: Home medications reviewed. Current medications reviewed. ALLERGIES: OXYBUTYNIN, AMPICILLIN, DULOXETINE, ERYTHROMYCIN. SOCIAL HISTORY: No history of smoking, alcohol or use of any illicit drugs. FAMILY HISTORY: No one has kidney disease. PHYSICAL EXAMINATION: VITAL SIGNS: Temperature 97.8F, pulse 78, respiratory rate 16, blood pressure 106/88. GENERAL: Alert, oriented, not in distress. HEENT: Oral mucosa moist. NECK: Supple. CHEST: Clear to auscultation. HEART: S1 and S2 normal, no rub. ABDOMEN: Soft, bowel sounds present, generalized tenderness present. EXTREMITIES: No edema. No clubbing. No cyanosis. 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 LAB DATA AND TESTS: BUN 33, creatinine 1.26, sodium 134, potassium 4.3, magnesium 2.1, albumin 3.4, AST 69, ALT 148. Lipase 119. ASSESSMENT AND PLAN: 1) ACUTE RENAL FAILURE MOST LIKELY SECONDARY TO VOLUME DEPLETION: Serum creatinine is improving with IV fluids. She has started developing some swelling in her upper extremities. I will decrease lactated Ringers to 75 ml/hour. In the past she had multiple CARRIE's (acute kidney injury) due to volume depletion. 2) CHRONIC KIDNEY DISEASE STAGE III: Her baseline serum creatinine around 1 to 1.5. Her chronic kidney disease is most likely secondary to multiple CARRIE's (acute kidney injury) in the past plus multiple urinary tract infections. Renal function back to baseline. 3) HYPOMAGNESEMIA: She is getting magnesium as an outpatient scheduled. This morning magnesium level is good, will monitor closely. 4) PANCREATITIS: Clinically getting better. Lipase is also getting better. She has history of chronic pancreatitis. 5) HISTORY OF HYPOKALEMIA: Continue to monitor closely. This morning potassium 4.3. Continue on lactated Ringer's. 6) ANEMIA, MILD: Hemoglobin 9.9 continue to monitor. Thank you Dr. Haji for giving me the opportunity to participate in the care of this patient. I will follow this patient along with you.
[2017-06-25] MEDS: Paxil 20 MG PO SCH (08:12)
[2017-06-25] MEDS: IMODIUM 2 MG PO SCH ×4 (08:12→22:13)
[2017-06-25] MEDS: PATIENT OWN MEDICATION PO SCH ×8 (08:12→22:41)
[2017-06-25] MEDS: LYRICA 75 MG CAP PO SCH ×2 (08:12→22:42)
[2017-06-25] MEDS: SANDOSTATIN 50MCG/ML SQ SCH ×2 (08:13→22:16)
[2017-06-25] MEDS: PROAMATINE 5 MG PO SCH ×3 (08:37→22:41)
--- NOTE | 2017-06-25 08:53 | PCM.NOTE ---
Date and Time: 06/25/17 0848 Subjective Assessment: Continues to have lower abd pain, only had 100cc urine out last night. Receiving IV fluids. Jama po. up out of bed. BP low but her midodrine was held on admission. - Review of Systems Constitutional: No Fever Abdominal/Gastrointestinal: Abdominal Pain Objective Exam General Appearance: mild distress, alert Neurologic Exam: oriented x 3, cooperative Skin Exam: normal color, warm, dry Respiratory Exam: normal breath sounds, lungs clear, No crackles/rales, No rhonchi, No wheezing Cardiovascular Exam: regular rate/rhythm, normal heart sounds, No murmur Gastrointestinal/Abdomen Exam: soft, normal bowel sounds, tenderness (diffuse), other (ileostomy present RLQ, suprapubic catheter present) Extremity Exam: swelling (trace LE edema bilat) OBJECTIVE DATA Vital Signs: Vital Signs - 24 hr Temp Pulse Resp BP Pulse Ox 06/25/17 07:56 71 20 98 06/25/17 07:47 97.8 F 83 20 103/59 95 06/25/17 04:00 98.0 F 85 17 92/54 94 L 06/25/17 00:00 98.0 F 70 15 92/53 94 L 06/24/17 20:00 98.4 F 81 15 104/57 96 06/24/17 19:42 77 18 98 06/24/17 16:20 97.5 F 81 20 90/56 94 L 06/24/17 16:00 97.9 F 80 22 97/62 90 L 06/24/17 11:14 97.9 F 80 22 97/62 90 L Pain Assessment - Last Documented Pain Intensity 6 Pain Scale Used 0-10 Pain Scale Intake and Output: Intake & Output 06/22/17 06/23/17 06/24/17 06/25/17 11:59 11:59 11:59 11:59 Intake Total 1549 5617 Output Total 2650 4255 Balance -1101 1362 Weight 59.285 kg Lab Results: Lab Results-Last 24 Hours 06/25/17 06/25/17 06/25/17 Range/Units 05:32 05:32 05:32 WBC 7.0 (4.0-10.5) K/mm3 RBC 3.02 L (4.1-5.4) M/mm3 Hgb 9.4 L (12.0-16.0) gm/dl Hct 29.6 L (35-47) % MCV 98.0 (78-100) fl MCH 31.1 (26-32) pg MCHC 31.8 L (32-36) g/dl RDW 15.5 H (11.5-14.0) % Plt Count 244 (150-450) K/mm3 MPV 9.8 H (6-9.5) fl Sodium 135 L (136-145) mEq/L Potassium 4.9 (3.5-5.1) mEq/L Chloride 101 (98-107) mEq/L Carbon Dioxide 25.6 (21-32) mEq/L Anion Gap 12.8 (5-15) MEQ/L BUN 20 (9-20) mg/dL Creatinine 1.05 (0.55-1.30) mg/dl Estimated GFR 58 ML/MIN Glucose 101 (70-110) MG/DL Calcium 8.4 L (8.5-10.1) mg/dL Magnesium 1.6 L (1.8-2.4) mg/dL Total Bilirubin 0.20 (0.2-1.0) mg/dL AST 75 H (15-37) U/L ALT 133 H (12-78) U/L Alkaline Phosphatase 236 H (46-116) U/L Serum Total Protein 6.9 (6.4-8.2) gm/dL Albumin 3.5 (3.4-5.0) g/dL Amylase 110 (25-115) U/L Lipase 461 H (73-393) U/L Radiology Exams: Radiology Procedures Category Date Time Status BLADDER [US] Urgent Exams 06/25/17 Ordered Multi-Disciplinary Progress Notes: Multi-Disciplinary Progress Notes 06/24/17 13:54 Pharmacy Note by Virgen Suh Spoke with Dr. Haji about Pt.'s urine output from her supra pubic cath. at 1100 was 50cc, and at 1200 it was 25cc. Also her Lipase was 691 on 06/23/17 and is now 606. She stated to call Dr. Orourke's office, to let them know . Called Dr. Orourke's office spoke with his nurse, Dr. Orourke's nurse said that Dr. Carty is in [place] and will be coming up this way after office hours to address these issues. Initialized on 06/24/17 13:54 - END OF NOTE Assessment/Plan (1) Pancreatitis Current Visit: Yes Status: Acute Qualifiers: Pancreatitis type: idiopathic Acute pancreatitis complication: no infection or necrosis Assessment & Plan: Improved with IV fluids. Lipase < 500 today. Code(s): K85.90 - ACUTE PANCREATITIS WITHOUT NECROSIS OR INFECTION, UNSP (2) Oliguria Current Visit: No Status: Resolved Assessment & Plan: persistent, with abd pain - wonder if there is an outlet obstruction. Urgent bladder u/s this morning. Code(s): R34 - ANURIA AND OLIGURIA (3) Chronic kidney disease (CKD) stage G3a/A1, moderately decreased glomerular filtration rate (GFR) between 45-59 mL/min/1.73 square meter and albuminuria creatinine ratio less than 30 mg/g Current Visit: No Status: Chronic Assessment & Plan: Cr 1.02 this morning. Code(s): N18.3 - CHRONIC KIDNEY DISEASE, STAGE 3 (MODERATE) (4) Elevated liver enzymes Current Visit: No Status: Chronic Assessment & Plan: stable Code(s): R74.8 - ABNORMAL LEVELS OF OTHER SERUM ENZYMES (5) Ileostomy care Current Visit: No Status: Chronic Code(s): Z43.2 - ENCOUNTER FOR ATTENTION TO ILEOSTOMY (6) Short bowel syndrome Current Visit: No Status: Chronic Code(s): K91.2 - POSTSURGICAL MALABSORPTION, NOT ELSEWHERE CLASSIFIED (7) Dehydration Current Visit: No Status: Resolved Code(s): E86.0 - DEHYDRATION (8) Anemia Current Visit: Yes Status: Acute Qualifiers: Anemia type: due to chronic kidney disease Chronic kidney disease stage: stage 3 (moderate) Qualified Code(s): N18.3 - Chronic kidney disease, stage 3 (moderate); D63.1 - Anemia in chronic kidney disease; D63.1 - Anemia in chronic kidney disease Assessment & Plan: Hgb 9.4 this morning. Code(s): D64.9 - ANEMIA, UNSPECIFIED
[2017-06-25] MEDS ORDERED: NON-FORMULARY ITEM PO SCH (10:00)
[2017-06-25] MEDS ORDERED: Monistat 7 VG SCH (10:00)
--- NOTE | 2017-06-25 10:16 | XRAY ---
Indication: Hypertension. Two-dimensional ultrasound of the urinary bladder performed. Comparison: May 21, 2017. Again there is a suprapubic catheter with the balloon tip in the bladder lumen. Urinary bladder demonstrates little urine volume today 5 cc, previously 54 cc. Again no gross focal abnormality.
[2017-06-25] MEDS ORDERED: Hydromorphone 1 mg/ml Ampule IV ONE (15:00)
[2017-06-25] MEDS ORDERED: DILAUDID 2 MG INJECTION IV ONE (15:15)
[2017-06-25] MEDS ORDERED: Lactated Ringers 1,000 ML IV SCH (18:00)
[2017-06-25] MEDS: Magnesium 1 Gm / 100 Ml D5W*** 100 ML IV SCH ×2 (18:26→19:41)
[2017-06-25] MEDS: NON-FORMULARY ITEM PO SCH (18:30)
--- NOTE | 2017-06-25 22:16 | XRAY ---
Indication: Abdominal pain. Multiple contiguous axial images obtained through the abdomen and pelvis without contrast as ordered. Comparison: December 04, 2016. Lung bases now demonstrates mild bibasilar dependent atelectasis. Heart is not enlarged. Stomach is now markedly distended with food. Small bowel loops again diffusely fluid distended up to 5.5 cm again up to the level of the right lower quadrant anastomosis again concerning for obstruction. No free fluid/air. There is again note of total colectomy with right lower quadrant ostomy. Rectal stump unremarkable. Again previous cholecystectomy, hysterectomy, and a suprapubic catheter in situ. Stable previous CT proven subcentimeter right lobe hepatic hemangioma. Remaining liver, pancreas, spleen, adrenal glands, kidneys, ureters, and aorta appear unremarkable for noncontrast exam. Osseous structures intact. Impression: 1. Again abnormal fluid distended small bowel loops to the level of the right lower quadrant anastomosis favoring obstruction. 2. Stable postsurgical changes and hepatic hemangioma. CT DI 14.95
[2017-06-25] MEDS: Monistat 7 VG SCH (22:42)
[2017-06-26] MEDS: Valium 5 MG PO SCH ×4 (05:47→18:41)
[2017-06-26] MEDS: DILAUDID 1 MG/1ML PCA IV PRN ×4 (05:51→22:54)
[2017-06-26] MEDS: PROVENTIL COMMON CANISTER IH SCH ×4 (07:36→19:49)
[2017-06-26] MEDS ORDERED: Zofran 4 MG/2 ML VIAL IV PRN (08:39)
--- NOTE | 2017-06-26 08:43 | PCM.NOTE ---
Date and Time: 06/26/17 0838 Subjective Assessment: Pt having increased abd pain yesterday; CT abd/pelvis was ordered showing foot in the stomach and consistent with intestinal obstruction. She was made NPO. Did have vomiting x 1 last night. Pain this morning is 9-10/10, LUQ. - Review of Systems Constitutional: No Fever Abdominal/Gastrointestinal: Abdominal Pain Objective Exam General Appearance: mild distress, alert Neurologic Exam: oriented x 3, cooperative Skin Exam: normal color, warm, dry Respiratory Exam: normal breath sounds, wheezing (faint scattered), No crackles/ rales, No rhonchi Cardiovascular Exam: regular rate/rhythm, normal heart sounds, No murmur Gastrointestinal/Abdomen Exam: soft, tenderness (quite ttp LUQ), guarding, other (hypoactive BS), No rebound Extremity Exam: normal inspection, No pedal edema, No swelling Back Exam: normal inspection OBJECTIVE DATA Vital Signs: Vital Signs - 24 hr Temp Pulse Resp BP Pulse Ox 06/26/17 07:37 78 18 97 06/26/17 07:13 98.2 F 69 18 95/63 99 06/26/17 03:57 97.8 F 84 16 100/57 95 06/25/17 23:58 98.4 F 80 15 105/56 95 06/25/17 20:00 98.3 F 81 15 109/57 94 L 06/25/17 19:15 78 16 96 06/25/17 16:00 98.4 F 78 18 118/67 96 06/25/17 14:47 76 18 95 06/25/17 12:00 97.8 F 77 18 107/62 99 06/25/17 11:46 74 18 97 06/25/17 09:54 98 Pain Assessment - Last Documented Pain Intensity 7 Pain Scale Used [facility] Intake and Output: Intake & Output 06/23/17 06/24/17 06/25/17 06/26/17 11:59 11:59 11:59 11:59 Intake Total 1549 6097 1761 Output Total 3500 8245 3150 Balance -1101 1492 -1389 Weight 59.285 kg 59.285 kg Lab Results: Lab Results-Last 24 Hours 06/26/17 Range/Units 05:15 Magnesium 2.1 (1.8-2.4) mg/dL Radiology Exams: Radiology Procedures Category Date Time Status ABDOMEN AND PELVIS W/0 CONTRAS [CT] Routine Exams 06/25/17 15:00 Completed BLADDER [US] Urgent Exams 06/25/17 Completed Multi-Disciplinary Progress Notes: Multi-Disciplinary Progress Notes 06/25/17 10:50 (created 06/25/17 12:46) Case Management Note by Myra Mahmood PLAN TO RETURN HOME WITH [facility] TO PRE EPISODIC LEVEL OF [facility]. POSITIVE FAMILY SUPPORT SYSTEM. DECLINED ADDNL NEEDS FOR DISCHARGE. Initialized on 06/25/17 12:46 - END OF NOTE Assessment/Plan (1) Bowel obstruction Current Visit: Yes Status: Acute Qualifiers: Intestinal obstruction type: obstruction due to adhesions Intestinal obstruction extent: unspecified extent Qualified Code(s): K56.50 - Intestinal adhesions [bands], unspecified as to partial versus complete obstruction Assessment & Plan: Plan is for bowel rest, IV fluids only, pt NPO. Discussed that watchful waiting is the likely course. No persistent vomiting; if she had this would place NG tube and consult surgery. Otherwise will watch for now. Code(s): K56.609 - UNSP INTESTNL OBST, UNSP TO PARTIAL VERSUS COMPLETE OBST (2) Pancreatitis Current Visit: Yes Status: Acute Qualifiers: Chronicity: acute Pancreatitis type: idiopathic Acute pancreatitis complication: no infection or necrosis Qualified Code(s): K85.00 - Idiopathic acute pancreatitis without necrosis or infection Assessment & Plan: recheck labs Code(s): K85.90 - ACUTE PANCREATITIS WITHOUT NECROSIS OR INFECTION, UNSP (3) Oliguria Current Visit: No Status: Resolved Assessment & Plan: resolved yesterday. U/S bladder was nl (no residual). Code(s): R34 - ANURIA AND OLIGURIA (4) Chronic kidney disease (CKD) stage G3a/A1, moderately decreased glomerular filtration rate (GFR) between 45-59 mL/min/1.73 square meter and albuminuria creatinine ratio less than 30 mg/g Current Visit: No Status: Chronic Assessment & Plan: renal function improved yesterday. Dr. Carty has seen the pt this hospitalization. Code(s): N18.3 - CHRONIC KIDNEY DISEASE, STAGE 3 (MODERATE) (5) Elevated liver enzymes Current Visit: No Status: Chronic Assessment & Plan: recheck Code(s): R74.8 - ABNORMAL LEVELS OF OTHER SERUM ENZYMES (6) Ileostomy care Current Visit: No Status: Chronic Code(s): Z43.2 - ENCOUNTER FOR ATTENTION TO ILEOSTOMY (7) Short bowel syndrome Current Visit: No Status: Chronic Code(s): K91.2 - POSTSURGICAL MALABSORPTION, NOT ELSEWHERE CLASSIFIED (8) Anemia Current Visit: Yes Status: Chronic Qualifiers: Anemia type: due to chronic kidney disease Chronic kidney disease stage: stage 3 (moderate) Qualified Code(s): N18.3 - Chronic kidney disease, stage 3 (moderate); D63.1 - Anemia in chronic kidney disease; D63.1 - Anemia in chronic kidney disease Code(s): D64.9 - ANEMIA, UNSPECIFIED
[2017-06-26] MEDS: PATIENT OWN MEDICATION PO SCH ×2 (09:00)
[2017-06-26] MEDS: SANDOSTATIN 50MCG/ML SQ SCH ×2 (09:00→20:47)
[2017-06-26] MEDS ORDERED: PHARMACY DOSING REQUIRED: DILAUDID PCA IV PRN (09:25)
[2017-06-26 09:35] LABS: Mean Cell Volume 98.2 fl (78-100); Mean Corpuscular Hemoglobin 30.9 pg (26-32); Mean Platelet Volume 10.4 fl (6-9.5); Platelet Count 223 K/mm3 (150-450); Red Blood Count 2.78 M/mm3 (4.1-5.4); Red Cell Distribution Width 15.4 % (11.5-14.0); White Blood Count 4.3 K/mm3 (4.0-10.5)
[2017-06-26 09:50] LABS: ALBUMIN 2.8 g/dL (3.4-5.0); ALKALINE PHOSPHATASE 224 U/L (46-116); ANION GAP 13.9 MEQ/L (5-15); BLOOD UREA NITROGEN 9 mg/dL (9-20); CHLORIDE 103 mEq/L (98-107); Glucose 91 MG/DL (70-110); LIPASE 421 U/L (73-393); Potassium 4.6 mEq/L (3.5-5.1); SGOT/AST 152 U/L (15-37); SGPT/ALT 222 U/L (12-78); SODIUM 139 mEq/L (136-145); Total Protein 5.9 gm/dL (6.4-8.2)
[2017-06-26] MEDS: Paxil 20 MG PO SCH (10:38)
[2017-06-26] MEDS: LYRICA 75 MG CAP PO SCH ×2 (10:38→21:38)
[2017-06-26] MEDS: NON-FORMULARY ITEM PO SCH (10:39)
[2017-06-26] MEDS: PROAMATINE 5 MG PO SCH ×3 (10:39→20:09)
[2017-06-26] MEDS: Lactated Ringers 1,000 ML IV SCH ×3 (12:41→20:38)
[2017-06-26] MEDS: Monistat 7 VG SCH (21:39)
[2017-06-27] MEDS: Lactated Ringers 1,000 ML IV SCH ×7 (04:38→23:03)
[2017-06-27] MEDS: Valium 5 MG PO SCH ×3 (05:29→18:36)
[2017-06-27] MEDS: DILAUDID 1 MG/1ML PCA IV PRN ×2 (05:36→18:48)
[2017-06-27] MEDS: PROVENTIL COMMON CANISTER IH SCH ×3 (06:52→20:56)
[2017-06-27] MEDS: NON-FORMULARY ITEM PO SCH (09:45)
[2017-06-27] MEDS: Paxil 20 MG PO SCH (09:45)
[2017-06-27] MEDS: LYRICA 75 MG CAP PO SCH ×2 (09:45→21:51)
[2017-06-27] MEDS: PROAMATINE 5 MG PO SCH ×3 (09:47→21:51)
[2017-06-27] MEDS: SANDOSTATIN 50MCG/ML SQ SCH ×2 (09:51→22:55)
[2017-06-27] MEDS ORDERED: SANDOSTATIN 50MCG/ML SQ SCH ×3 (10:00→22:53)
--- NOTE | 2017-06-27 13:30 | PCM.NOTE ---
Date and Time: 06/27/17 1325 Subjective Assessment: Pt is feeling better today. no vomiting. Intermittent abdominal pain; pain level is still "high" when she does have pain, but it is less often. She has not needed to push her TANKAGE GRINDER button frequently today. Last night the nurse called, concerned about pt's drowsiness and respirations from 6-12 breaths per minute (however, a low of 12 breaths per minute is recorded in the vitals). At that point I discontinued her basal rate of dilauded and resumed the standard TANKAGE GRINDER dosing. The stock lifter train reservation clerk recommended that when it is OK with respect to GI issues, she should resume CLD. She has been having dark green liquid out of her ostomy bag. - Review of Systems Constitutional: No Fever Abdominal/Gastrointestinal: Abdominal Pain Objective Exam General Appearance: no apparent distress, alert Neurologic Exam: oriented x 3, cooperative Skin Exam: normal color, warm, dry Ears, Nose, Throat Exam: moist mucous membranes Respiratory Exam: normal breath sounds, lungs clear, No crackles/rales, No rhonchi, No wheezing Cardiovascular Exam: regular rate/rhythm, normal heart sounds, No murmur Gastrointestinal/Abdomen Exam: soft, tenderness (LUQ), guarding Extremity Exam: swelling (trace distal extremity edema throughout) Back Exam: normal inspection, No rash OBJECTIVE DATA Vital Signs: Vital Signs - 24 hr Temp Pulse Resp BP Pulse Ox 06/27/17 11:22 97.8 F 70 18 94/58 97 06/27/17 09:36 97 06/27/17 07:04 98.2 F 82 20 88/50 95 06/27/17 06:53 94 H 18 94 L 06/27/17 05:36 97 06/27/17 04:00 98.2 F 77 14 85/49 96 06/27/17 00:00 97.9 F 77 12 91/54 99 06/26/17 22:34 98 06/26/17 20:11 93 L 06/26/17 20:00 98.2 F 78 12 87/50 92 L 06/26/17 19:49 81 14 94 L 06/26/17 18:34 90 L 06/26/17 15:54 98.5 F 75 14 92/50 91 L 06/26/17 14:50 92 L Oxygen-Last 24 hours O2 Percentage 3 Liters = 32% O2 Percentage 3 Liters = 32% Pain Assessment - Last Documented Pain Intensity 6 Pain Scale Used 0-10 Pain Scale Intake and Output: Intake & Output 06/25/17 06/26/17 06/27/17 06/28/17 11:59 11:59 11:59 11:59 Intake Total 6057 1761 3166 0 Output Total 4565 3150 1875 Balance 1492 -1389 1291 0 Weight 59.285 kg Radiology Exams: Radiology Procedures Category Date Time Status ABDOMEN AND PELVIS W/0 CONTRAS [CT] Routine Exams 06/25/17 15:00 Completed Assessment/Plan (1) Bowel obstruction Current Visit: Yes Status: Acute Qualifiers: Intestinal obstruction type: obstruction due to adhesions Intestinal obstruction extent: unspecified extent Qualified Code(s): K56.50 - Intestinal adhesions [bands], unspecified as to partial versus complete obstruction Assessment & Plan: Clinically she is doing better, having output through the ostomy and is quite hungry. I will discuss with Dr. Justin, GI train reservation clerk. Code(s): K56.609 - UNSP INTESTNL OBST, UNSP TO PARTIAL VERSUS COMPLETE OBST (2) Pancreatitis Current Visit: Yes Status: Resolved Qualifiers: Chronicity: acute Pancreatitis type: idiopathic Acute pancreatitis complication: no infection or necrosis Qualified Code(s): K85.00 - Idiopathic acute pancreatitis without necrosis or infection Assessment & Plan: acute on chronic. Code(s): K85.90 - ACUTE PANCREATITIS WITHOUT NECROSIS OR INFECTION, UNSP (3) Chronic kidney disease (CKD) stage G3a/A1, moderately decreased glomerular filtration rate (GFR) between 45-59 mL/min/1.73 square meter and albuminuria creatinine ratio less than 30 mg/g Current Visit: No Status: Chronic Assessment & Plan: nephrology following, thank you. Code(s): N18.3 - CHRONIC KIDNEY DISEASE, STAGE 3 (MODERATE) (4) Elevated liver enzymes Current Visit: No Status: Chronic Code(s): R74.8 - ABNORMAL LEVELS OF OTHER SERUM ENZYMES (5) Ileostomy care Current Visit: No Status: Chronic Assessment & Plan: She does tend to have increased ostomy output with a liquid diet; I will discuss with GI. Typically she is on octreotide and immodium but I had stopped these in light of her possible bowel obstruction. Code(s): Z43.2 - ENCOUNTER FOR ATTENTION TO ILEOSTOMY (6) Short bowel syndrome Current Visit: No Status: Chronic Code(s): K91.2 - POSTSURGICAL MALABSORPTION, NOT ELSEWHERE CLASSIFIED (7) Anemia Current Visit: Yes Status: Chronic Qualifiers: Anemia type: due to chronic kidney disease Chronic kidney disease stage: stage 3 (moderate) Qualified Code(s): N18.3 - Chronic kidney disease, stage 3 (moderate); D63.1 - Anemia in chronic kidney disease; D63.1 - Anemia in chronic kidney disease Code(s): D64.9 - ANEMIA, UNSPECIFIED
[2017-06-27 13:47] LABS: Mean Cell Volume 97.9 fl (78-100); Mean Platelet Volume 9.3 fl (6-9.5); Platelet Count 221 K/mm3 (150-450); Red Blood Count 2.82 M/mm3 (4.1-5.4); Red Cell Distribution Width 15.3 % (11.5-14.0); White Blood Count 5.7 K/mm3 (4.0-10.5)
[2017-06-27 13:48] LABS: Mean Corpuscular Hemoglobin 30.8 pg (26-32)
[2017-06-27 14:13] LABS: ALBUMIN 2.9 g/dL (3.4-5.0); ALKALINE PHOSPHATASE 271 U/L (46-116); ANION GAP 13.1 MEQ/L (5-15); BLOOD UREA NITROGEN 8 mg/dL (9-20); CHLORIDE 102 mEq/L (98-107); Carbon Dioxide 29.1 mEq/L (21-32); Glucose 99 MG/DL (70-110); Potassium 3.8 mEq/L (3.5-5.1); SGOT/AST 79 U/L (15-37); SGPT/ALT 152 U/L (12-78); SODIUM 140 mEq/L (136-145); Total Protein 6.3 gm/dL (6.4-8.2)
[2017-06-27] MEDS: Monistat 7 VG SCH (21:53)
[2017-06-27] MEDS ORDERED: PATIENT OWN MEDICATION PO SCH ×2 (22:00→22:26)
[2017-06-28] MEDS: PROVENTIL COMMON CANISTER IH SCH ×2 (01:50→07:04)
[2017-06-28] MEDS: Lactated Ringers 1,000 ML IV SCH ×3 (04:32→23:56)
[2017-06-28 05:51] LABS: Mean Cell Volume 98.2 fl (78-100); Mean Platelet Volume 9.3 fl (6-9.5); Platelet Count 220 K/mm3 (150-450); Red Blood Count 2.74 M/mm3 (4.1-5.4); Red Cell Distribution Width 15.2 % (11.5-14.0); White Blood Count 2.9 K/mm3 (4.0-10.5)
[2017-06-28] MEDS: Valium 5 MG PO SCH ×4 (05:54→18:22)
[2017-06-28 06:08] LABS: Mean Corpuscular Hemoglobin 30.6 pg (26-32)
[2017-06-28 06:18] LABS: ALBUMIN 2.4 g/dL (3.4-5.0); ALKALINE PHOSPHATASE 286 U/L (46-116); ANION GAP 9.9 MEQ/L (5-15); BLOOD UREA NITROGEN 6 mg/dL (9-20); CHLORIDE 104 mEq/L (98-107); Carbon Dioxide 30.5 mEq/L (21-32); Glucose 112 MG/DL (70-110); SGOT/AST 65 U/L (15-37); SGPT/ALT 123 U/L (12-78); SODIUM 140 mEq/L (136-145); Total Protein 5.6 gm/dL (6.4-8.2)
[2017-06-28] MEDS: DILAUDID 1 MG/1ML PCA IV PRN (06:23)
[2017-06-28] MEDS: NON-FORMULARY ITEM PO SCH (09:29)
[2017-06-28] MEDS: LYRICA 75 MG CAP PO SCH ×2 (09:29→21:19)
[2017-06-28] MEDS: PROAMATINE 5 MG PO SCH ×3 (09:29→21:21)
[2017-06-28] MEDS: SANDOSTATIN 50MCG/ML SQ SCH ×2 (09:29→21:21)
[2017-06-28] MEDS: Paxil 20 MG PO SCH (09:29)
--- NOTE | 2017-06-28 13:10 | PCM.NOTE ---
Date and Time: 06/28/17 1305 Subjective Assessment: She reports she continues to have some abdominal pain but that it is improving. She has had an increase in her ileostomy output with the liquid diet which she states is what usually happens to her. She states restarting the octreotide last night did help with this. She would like to advance her diet. She notes some swelling in her hands and legs. She has had lactated ringers running at 150 mL per hour although Dr. Carty's note from 06/24/17 stated he was going to decrease this to 75 mL per hour. She fells like she is slowly improving but wants to make sure she tolerates a more regular diet without abdominal pain before going home. - Review of Systems Constitutional: No Symptoms Eyes: No Symptoms Ears, Nose, & Throat: No Symptoms Respiratory: No Symptoms Cardiac: No Symptoms Abdominal/Gastrointestinal: Abdominal Pain, Diarrhea, Other (High ileostomy output), No Nausea, No Vomiting Genitourinary Symptoms: No Symptoms Musculoskeletal: Other (swelling of her hands and lower extremities) Skin: No Symptoms Objective Exam General Appearance: no apparent distress, alert, other (Family members at bedside. I saw her walking in the [place] earlier this AM.) Skin Exam: normal color, warm, dry, No rash Cardiovascular Exam: regular rate/rhythm, normal heart sounds, No murmur, No friction rub, No gallop Gastrointestinal/Abdomen Exam: soft, other (hyperactive bowel sounds, ileostomy in place with bag, mild tenderness throughout, old well healed surgical scars.) , No distention, No guarding Extremity Exam: other (+1 edema to mid shins bilat, mild swelling of her hands bilat) OBJECTIVE DATA Vital Signs: Vital Signs - 24 hr Temp Pulse Resp BP Pulse Ox 06/28/17 11:39 98.3 F 73 20 118/72 92 L 06/28/17 08:00 98.3 F 84 18 111/59 93 L 06/28/17 07:04 71 18 93 L 06/28/17 06:23 96 06/28/17 00:00 98.6 F 59 L 16 112/58 94 L 06/27/17 22:48 95 06/27/17 20:00 98.0 F 77 15 107/62 95 06/27/17 18:48 96 06/27/17 17:44 87 20 97 06/27/17 16:00 98.7 F 87 22 107/65 93 L Pain Assessment - Last Documented Pain Intensity 5 Pain Scale Used 0-10 Pain Scale Intake and Output: Intake & Output 06/26/17 06/27/17 06/28/17 06/29/17 06:59 06:59 06:59 06:59 Intake Total 2201 3166 3745 360 Output Total 3460 2105 2525 Balance -1259 1291 1220 360 Weight 59.285 kg Lab Results: Lab Results-Last 24 Hours 06/27/17 06/27/17 06/28/17 Range/Units 13:39 13:39 05:20 WBC 5.7 2.9 L (4.0-10.5) K/mm3 RBC 2.82 L 2.74 L (4.1-5.4) M/mm3 Hgb 8.7 L 8.4 L (12.0-16.0) gm/dl Hct 27.6 L 26.9 L (35-47) % MCV 97.9 98.2 (78-100) fl MCH 30.8 30.6 (26-32) pg MCHC 31.5 L 31.2 L (32-36) g/dl RDW 15.3 H 15.2 H (11.5-14.0) % Plt Count 221 220 (150-450) K/mm3 MPV 9.3 9.3 (6-9.5) fl Sodium 140 (136-145) mEq/L Potassium 3.8 (3.5-5.1) mEq/L Chloride 102 (98-107) mEq/L Carbon Dioxide 29.1 (21-32) mEq/L Anion Gap 13.1 (5-15) MEQ/L BUN 8 L (9-20) mg/dL Creatinine 0.96 (0.55-1.30) mg/dl Estimated GFR > 60 ML/MIN Glucose 99 (70-110) MG/DL Calcium 8.8 (8.5-10.1) mg/dL Magnesium (1.8-2.4) mg/dL Total Bilirubin 0.40 (0.2-1.0) mg/dL AST 79 H (15-37) U/L ALT 152 H (12-78) U/L Alkaline Phosphatase 271 H (46-116) U/L Serum Total Protein 6.3 L (6.4-8.2) gm/dL Albumin 2.9 L (3.4-5.0) g/dL 06/28/17 06/28/17 Range/Units 05:20 05:20 WBC (4.0-10.5) K/mm3 RBC (4.1-5.4) M/mm3 Hgb (12.0-16.0) gm/dl Hct (35-47) % MCV (78-100) fl MCH (26-32) pg MCHC (32-36) g/dl RDW (11.5-14.0) % Plt Count (150-450) K/mm3 MPV (6-9.5) fl Sodium 140 (136-145) mEq/L Potassium 4.0 (3.5-5.1) mEq/L Chloride 104 (98-107) mEq/L Carbon Dioxide 30.5 (21-32) mEq/L Anion Gap 9.9 (5-15) MEQ/L BUN 6 L (9-20) mg/dL Creatinine 0.94 (0.55-1.30) mg/dl Estimated GFR > 60 ML/MIN Glucose 112 H (70-110) MG/DL Calcium 8.3 L (8.5-10.1) mg/dL Magnesium 1.5 L (1.8-2.4) mg/dL Total Bilirubin 0.30 (0.2-1.0) mg/dL AST 65 H (15-37) U/L ALT 123 H (12-78) U/L Alkaline Phosphatase 286 H (46-116) U/L Serum Total Protein 5.6 L (6.4-8.2) gm/dL Albumin 2.4 L (3.4-5.0) g/dL Assessment/Plan (1) Abdominal pain Current Visit: Yes Status: Acute Assessment & Plan: Improving. Most likely due to SBO that has resolved and pancreatitis which is resolving. Code(s): R10.9 - UNSPECIFIED ABDOMINAL PAIN (2) Pancreatitis Current Visit: Yes Status: Resolved Qualifiers: Chronicity: acute Pancreatitis type: idiopathic Acute pancreatitis complication: no infection or necrosis Qualified Code(s): K85.00 - Idiopathic acute pancreatitis without necrosis or infection Assessment & Plan: She is starting to tolerate a diet now. Code(s): K85.90 - ACUTE PANCREATITIS WITHOUT NECROSIS OR INFECTION, UNSP (3) Short bowel syndrome Current Visit: No Status: Chronic Assessment & Plan: Octreotide restarted last night due to high ostomy output. Code(s): K91.2 - POSTSURGICAL MALABSORPTION, NOT ELSEWHERE CLASSIFIED (4) Ileostomy in place Current Visit: Yes Status: Acute Code(s): Z93.2 - ILEOSTOMY STATUS (5) Hypomagnesemia Current Visit: Yes Status: Acute Assessment & Plan: Will give Magnesium sulfate 2 G IV once and recheck Magnesium level in AM. Code(s): E83.42 - HYPOMAGNESEMIA (6) Anemia Current Visit: Yes Status: Chronic Qualifiers: Anemia type: due to chronic kidney disease Chronic kidney disease stage: stage 3 (moderate) Qualified Code(s): N18.3 - Chronic kidney disease, stage 3 (moderate); D63.1 - Anemia in chronic kidney disease; D63.1 - Anemia in chronic kidney disease Assessment & Plan: Stable at this time. Code(s): D64.9 - ANEMIA, UNSPECIFIED
[2017-06-28] MEDS ORDERED: Magnesium Sulfate 1 GM/2 ML VIAL*** 2 GM in Sodium Chloride 0.9% 100 ML IVPB 100 ML IV ONE (13:30)
[2017-06-28] MEDS ORDERED: Magnesium Sulfate 1 GM/2 ML VIAL IV ONE (13:30)
[2017-06-28] MEDS: PATIENT OWN MEDICATION PO SCH ×4 (16:38→21:20)
[2017-06-28] MEDS: Monistat 7 VG SCH (21:20)
[2017-06-29] MEDS: DILAUDID 1 MG/1ML PCA IV PRN (05:12)
[2017-06-29] MEDS: Valium 5 MG PO SCH ×3 (05:46→17:10)
[2017-06-29] MEDS: PATIENT OWN MEDICATION PO SCH ×8 (09:01→21:02)
--- NOTE | 2017-06-29 10:42 | PCM.NOTE ---
Date and Time: 06/29/17 1038 Subjective Assessment: Patient reports thicker stool in her ostomy bag and able to take some cream of wheat today for breakfast. Discussed during rounds taking her off her [employer] and putting her back on her home pain medications which she was agreeable to doing but then reported to her nurse that she had a bad bladder spasm when walking with her so she didn't think she could make this change today. - Review of Systems Constitutional: No Symptoms Eyes: No Symptoms Ears, Nose, & Throat: No Symptoms Respiratory: No Symptoms Cardiac: No Symptoms Abdominal/Gastrointestinal: Abdominal Pain Genitourinary Symptoms: Other (bladder spasm) Musculoskeletal: No Symptoms Skin: Other (Patient reports feeling swollen in feet and hands.) Objective Exam General Appearance: no apparent distress, alert Neurologic Exam: alert, cooperative, normal mood/affect Skin Exam: normal color, warm, dry, No rash Cardiovascular Exam: regular rate/rhythm, normal heart sounds, No murmur, No friction rub, No gallop Gastrointestinal/Abdomen Exam: soft, normal bowel sounds, tenderness, other ( epigatric tenderness, ostomy bag in place, suprapubic catheter in place), No distention, No mass, No guarding Extremity Exam: other (trace edema in hands and feet bilat, no c/c) OBJECTIVE DATA Vital Signs: Vital Signs - 24 hr Temp Pulse Resp BP Pulse Ox 06/29/17 07:09 97.6 F 78 20 120/58 98 06/29/17 05:12 94 L 06/29/17 04:03 98.1 F 75 18 125/73 90 L 06/28/17 23:30 98.1 F 67 14 105/61 98 06/28/17 20:50 68 16 91 L 06/28/17 19:51 98.4 F 73 16 105/63 99 06/28/17 17:52 93 L 06/28/17 16:00 98.3 F 80 20 102/55 93 L 06/28/17 11:39 98.3 F 73 20 118/72 92 L Pain Assessment - Last Documented Pain Intensity 9 Pain Scale Used 0-10 Pain Scale Intake and Output: Intake & Output 06/27/17 06/28/17 06/29/17 06/30/17 06:59 06:59 06:59 06:59 Intake Total 5186 4615 3686 120 Output Total 1875 2525 2225 900 Balance 1291 1220 1461 -780 Lab Results: Lab Results-Last 24 Hours 06/29/17 Range/Units 05:10 Magnesium 1.9 (1.8-2.4) mg/dL Assessment/Plan (1) Abdominal pain Current Visit: Yes Status: Acute Assessment & Plan: Improving. She is tolerating full liquid diet. Code(s): R10.9 - UNSPECIFIED ABDOMINAL PAIN (2) Pancreatitis Current Visit: Yes Status: Resolved Qualifiers: Chronicity: acute Pancreatitis type: idiopathic Acute pancreatitis complication: no infection or necrosis Qualified Code(s): K85.00 - Idiopathic acute pancreatitis without necrosis or infection Assessment & Plan: Clinically improved. Again, tolerating full liquid diet. Code(s): K85.90 - ACUTE PANCREATITIS WITHOUT NECROSIS OR INFECTION, UNSP (3) Short bowel syndrome Current Visit: No Status: Chronic Code(s): K91.2 - POSTSURGICAL MALABSORPTION, NOT ELSEWHERE CLASSIFIED (4) Ileostomy in place Current Visit: Yes Status: Acute Code(s): Z93.2 - ILEOSTOMY STATUS (5) Hypomagnesemia Current Visit: Yes Status: Acute Assessment & Plan: Resolved with replacement yesterday. Code(s): E83.42 - HYPOMAGNESEMIA (6) Anemia Current Visit: Yes Status: Chronic Qualifiers: Anemia type: due to chronic kidney disease Chronic kidney disease stage: stage 3 (moderate) Qualified Code(s): N18.3 - Chronic kidney disease, stage 3 (moderate); D63.1 - Anemia in chronic kidney disease; D63.1 - Anemia in chronic kidney disease Code(s): D64.9 - ANEMIA, UNSPECIFIED
[2017-06-29] MEDS: Paxil 20 MG PO SCH (11:16)
[2017-06-29] MEDS: NON-FORMULARY ITEM PO SCH (11:17)
[2017-06-29] MEDS: LYRICA 75 MG CAP PO SCH ×2 (11:17→21:01)
[2017-06-29] MEDS: PROAMATINE 5 MG PO SCH ×4 (11:18→22:10)
[2017-06-29] MEDS: SANDOSTATIN 50MCG/ML SQ SCH ×2 (11:50→22:09)
[2017-06-29] MEDS: Lactated Ringers 1,000 ML IV SCH (14:24)
[2017-06-29] MEDS: Monistat 7 VG SCH (21:04)
[2017-06-30] MEDS: PROVENTIL COMMON CANISTER IH SCH (02:42)
[2017-06-30] MEDS ORDERED: PROVENTIL COMMON CANISTER IH PRN (02:43)
[2017-06-30] MEDS: Lactated Ringers 1,000 ML IV SCH (03:40)
[2017-06-30] MEDS: Valium 5 MG PO SCH (05:47)
[2017-06-30] MEDS: DILAUDID 1 MG/1ML PCA IV PRN (05:54)
[2017-06-30 07:03] VITALS: O2SAT 95
[2017-06-30 07:14] VITALS: BP 119/72; PULSE 78
[2017-06-30] MEDS: PATIENT OWN MEDICATION PO SCH ×2 (07:46)
--- NOTE | 2017-06-30 09:18 | PCM.DS ---
Discharge Summary Date of Admission: 06/24/17 17:40 Admitting Physician: JOSE ZAMORANO Consults: Consults on Case 06/24/17 14:05 Consult Nephrology ROUTINE Primary Care Provider: JOSE ZAMORANO Allergies Allergies oxybutynin Allergy (Severe, Verified 06/23/17 12:50) pharyngeal swelling ampicillin Allergy (Mild, Verified 06/23/17 12:50) hives duloxetine [From Cymbalta] Allergy (Mild, Verified 06/23/17 12:50) nausea erythromycin base [Erythromycin Base] Allergy (Mild, Verified 06/23/17 12:50) [facility] Summary - Hospital Course Hospital Course: Pt admitted with abdominal pain, found to have elevated lipase and treated for pancreatitis. She started having increased abdominal pain and CT abd/pelvis found small bowel obstruction. Her octreotide, immodium, and belladonna were held temporarily. Over the next 2 days her abd pain decreased gradually and she started tolerating clear liquids, with liquid ostomy output. Her pain continued to decrease, although yesterday she had a bladder spasm and did not want to d/c the IV dilaudid yet. This morning she is feeling good, has not been requiring the pain pump except for 2 times, and would like to be discharged to home. She has tolerated po very well. Ileostomy bag is thickened up. Urine from the suprapubic catheter is clear. She is c/o extremity edema. - Vitals & Intake/Output Vital Signs: Vital Signs Temperature 97.8 F 06/30/17 07:13 Pulse Rate 78 06/30/17 07:13 Respiratory Rate 18 06/30/17 07:13 Blood Pressure 119/72 06/30/17 07:13 O2 Sat by Pulse Oximetry 95 06/30/17 07:13 Oxygen-Last Documented O2 Percentage 2 Liters = 28% Intake & Output: Intake & Output 06/27/17 06/28/17 06/29/17 06/30/17 11:59 11:59 11:59 11:59 Intake Total 3166 4105 3446 2985 Output Total 1875 2525 3125 3250 Balance 1291 1580 321 -265 - Lab Result Diagrams: 06/28/17 05:20 06/28/17 05:20 - Procedures and Test Procedures and Tests throughout Hospitalization: Therapy Orders & Screens 06/23/17 12:30 Smoking Cessation Education ONCE Comment: Diagnosis: Dehydration, vomiting, oliguria Smoking Status: Heavy tobacco smoker How long have you smoked: 20 Have you smoked in the past 12 months: Yes Approximately how many cigarettes per day: 10 Do you dip or chew tobacco: No 06/28/17 08:15 Respiratory MDI PRN Comment: Diagnosis: ACUTE KIDNEY INJURY Discharge Exam General Appearance: no apparent distress, alert Neurologic Exam: oriented x 3, cooperative Skin Exam: normal color, warm, dry Respiratory Exam: normal breath sounds, lungs clear, No crackles/rales, No rhonchi, No wheezing Cardiovascular Exam: regular rate/rhythm, normal heart sounds, No murmur Extremity Exam: normal inspection, swelling (mild peripheral edema throughout) Back Exam: normal inspection Final Diagnosis/Problem List - Final Discharge Diagnosis/Problem (1) Bowel obstruction Current Visit: Yes Status: Resolved Assessment & Plan: Resolved. F/u with DR. Castle outpatient. (2) Pancreatitis Current Visit: Yes Status: Resolved (3) Chronic kidney disease (CKD) stage G3a/A1, moderately decreased glomerular filtration rate (GFR) between 45-59 mL/min/1.73 square meter and albuminuria creatinine ratio less than 30 mg/g Current Visit: No Status: Chronic Assessment & Plan: much improved after IV fluids. F/u with Dr. Orourke outpatient. She will come for labs and fluids in 2 days. (4) Elevated liver enzymes Current Visit: No Status: Chronic (5) Ileostomy care Current Visit: No Status: Chronic (6) Short bowel syndrome Current Visit: No Status: Chronic (7) Anemia Current Visit: Yes Status: Chronic - Discharge Disposition: Home, Self-Care Condition: Stable Prescriptions: Continue Pregabalin [Lyrica] 75 mg PO BID Multivitamin [Multivitamins] 1 each PO DAILY Hydrocodone Bit/Acetaminophen [[place] 7.5-325 Tablet] 1 each PO Q6HPRN PRN PRN Reason: Pain Doxylamine Succinate [Unisom Sleep Aid] 25 mg PO HS Diazepam 5 mg [Valium 5 MG] 5 mg PO TID Ascorbic Acid [Vitamin C] 1,000 mg PO DAILY Cholecalciferol (Vitamin D3) [Vitamin D] 2,000 iu PO DAILY Promethazine HCl 25 mg [Phenergan 25 mg] 25 mg PO BIDPRN PRN PRN Reason: Nausea Midodrine HCl 10 mg PO TID Lipase/Protease/Amylase [Pancrelipase EC 20,000 Capsule] 1 cap PO TID Octreotide Acetate 100 mcg SQ BID Phenobarb/Hyoscy/Atropine/Scop [Belladonna-Phenobarb Elixir] 10 ml PO ACHS Paroxetine HCl [Paxil] 40 mg PO DAILY Cyanocobalamin (Vitamin B-12) [Vitamin B12] 2,500 mcg PO DAILY Loperamide HCl 2 mg [Imodium 2 mg] 3 cap PO TID MDD 24 mg Follow up with: KHUSHBU OROURKE [CONSULTING PHYSICIAN] - 07/08/17 3:00 pm JOSE ZAMORANO [Primary Care Provider] - 07/08/17 10:15 am Forms: Patient Portal Information
== END 2017-06-30 10:00 | disposition home or self-care (01) | DRG 388 ==
LOC: MED SURG 11:46 → OBSVTOIN 06-24 17:40
PROVIDERS: ADMIT Family Medicine; ATTEND Family Medicine
DX: K56.50 Intestinal adhesions [bands], unspecified as to partial versus complete obstruction (principal); K85.00 Idiopathic acute pancreatitis without necrosis or infection; K91.2 Postsurgical malabsorption, not elsewhere classified; N18.3 Chronic kidney disease, stage 3 (moderate); D63.1 Anemia in chronic kidney disease; R74.8 Abnormal levels of other serum enzymes; Z43.2 Encounter for attention to ileostomy; Z79.899 Other long term (current) drug therapy; Z90.49 Acquired absence of other specified parts of digestive tract; Z72.0 Tobacco use; R34 Anuria and oliguria; E86.0 Dehydration; E83.42 Hypomagnesemia
CPT/HCPCS: 36415; 71020; 74176; 76705; 80053; 82103; 82104; 82150; 82390; 82977; 83690; 83735; 84132; 85025; 85027; 86256; 86644; 86663; 86664; 86665; 86709; 86803; 87517; 87522; 87902; 94640; 94760; 94762; G0378; J1170; J1642; J2270; J2354; J2550; J3475; J3480; A9270-GY

== ENCOUNTER 2017-07-23 13:49 | Observation (INO) | payer MEDICARE ==
[2017-07-23] MEDS ORDERED: MORPHINE SULFATE 4 MG INJ IV PRN (14:41)
[2017-07-23] MEDS ORDERED: PHENERGAN 25 MG PO PRN (14:57)
[2017-07-23] MEDS ORDERED: AMYLASE PO SCH (15:00)
[2017-07-23] MEDS ORDERED: PROTEASE PO SCH (15:00)
[2017-07-23] MEDS ORDERED: LIPASE PO SCH (15:00)
[2017-07-23] MEDS ORDERED: MEDICATION INTERVENTION MC PRN (15:26)
[2017-07-23] MEDS: PROAMATINE 5 MG PO SCH ×2 (15:26→22:53)
--- NOTE | 2017-07-23 15:32 | PCM.HP ---
History of Present Illness - Chief Complaint Chief Complaint: Abd pain,pelvic pain,chronic renal failure,elevated LFT's History of Present Illness: is a 52 year old female pt of mine from [facility] with chronic renal failure s/p bowel resection with indwelling suprapubic catheter who came for her IV fluids and complained of abd pain. Pain is in the LUQ and started at 4 am yesterday. no fever. Has not been eating much. Increased ostomy output for several days. She notes the surrounding skin at the suprapubic catheter site has had an exudate for months that is yellow to green. - Review of Systems Constitutional: Fatigue, Weakness Respiratory: Cough (dry for several days) Abdominal/Gastrointestinal: Abdominal Pain, Nausea, No Vomiting All Other Systems: Reviewed and Negative Medications & Allergies Home Medications: Home Medication List Ascorbic Acid [Vitamin C] 1,000 mg PO DAILY 12/24/16 [History Confirmed 07/23/17 ] Cholecalciferol (Vitamin D3) [Vitamin D] 2,000 iu PO DAILY 12/24/16 [ History Confirmed 07/23/17] Diazepam 5 mg [Valium 5 MG] 5 mg PO TID 12/24/16 [History Confirmed ] Doxylamine Succinate [Unisom Sleep Aid] 25 mg PO HS 12/24/16 [History Confirmed 07/23/17] Hydrocodone Bit/Acetaminophen [[place] 7.5-325 Tablet] 1 each PO Q6HPRN PRN [History Confirmed 07/23/17] Multivitamin [Multivitamins] 1 each PO DAILY 12/24/16 [History Confirmed ] Pregabalin [Lyrica] 75 mg PO BID 12/24/16 [History Confirmed 07/23/17] Promethazine HCl 25 mg [Phenergan 25 mg] 25 mg PO BIDPRN PRN 01/07/17 [ History Confirmed 07/23/17] Lipase/Protease/Amylase [Pancrelipase EC 20,000 Capsule] 1 cap PO TID 01/13/17 [ History Confirmed 07/23/17] Midodrine HCl 10 mg PO TID 01/13/17 [History Confirmed 07/23/17] Octreotide Acetate 100 mcg SQ BID 01/13/17 [History Confirmed 07/23/17] Phenobarb/Hyoscy/Atropine/Scop [Belladonna-Phenobarb Elixir] 10 ml PO ACHS 01/13 [History Confirmed 07/23/17] Paroxetine HCl [Paxil] 40 mg PO DAILY 01/20/17 [History Confirmed 07/23/17] Cyanocobalamin (Vitamin B-12) [Vitamin B12] 2,500 mcg PO DAILY 03/05/17 [ History Confirmed 07/23/17] Loperamide HCl 2 mg [Imodium 2 mg] 3 cap PO TID MDD 24 mg 05/22/17 [ History Confirmed 07/23/17] Amitriptyline HCl 100 mg PO HS 07/04/17 [History Confirmed 07/23/17] Sodium Chloride 1 gm PO DAILY 07/23/17 [History Confirmed 07/23/17] Allergies/Adverse Reactions: Allergies Allergy/AdvReac Type Severity Reaction Status Date / Time oxybutynin Allergy Severe Verified 06/23/17 12:50 ampicillin Allergy Mild Verified 06/23/17 12:50 duloxetine [From Cymbalta] Allergy Mild Verified 06/23/17 12:50 erythromycin base Allergy Mild Verified 06/23/17 12:50 [Erythromycin Base] - Past Medical History Past Medical History: Yes Neurological History: Migraines ENT History: No Pertinent History Cardiac History: No Pertinent History Respiratory History: No Pertinent History Endocrine Medical History: No Pertinent History Musculoskelatal History: No Pertinent History GI Medical History: Colitis, Hepatitis, Pancreatitis, Other History: Renal Disease, Other Pyscho-Social History: Anxiety, Depression Reproductive Disorders: No Pertinent History Comment: short gut syndrome,chronic diarrhea,small bowel bacterial overgrowth. hx bowel obstruction 04/03, 06/23/17 and others stated in the past. stage 3 kidney disease. hx hepatitis - Female History Are you now?: No - Past Surgical History Past Surgical History: Yes Neuro Surgical History: No Pertinent History Cardiac History: No Pertinent History Respiratory Surgery: No Pertinent History GI Surgical History: Cholecystectomy, Colon Resection, Other Genitourinary Surgical Hx: Other Musculskeletal Surgical Hx: No Pertinent History Female Surgical History: Hysterectomy Other Surgical History: 100cm small bowel removal and resection and colon and large bowel removed, bladder surgen with suprapubic catheter placed. stent in rt ureter ,bladder revision with larger stent. pt states she is scheduled for a liver biopsy with Dr. Castle on 06/16/17 - Social History Smoking Status: Heavy tobacco smoker How long have you smoked: 20 Exposure to second hand smoke: Yes Alcohol: None Drug Use: none - Physical Exam Vital Signs: Vital Signs - 24 hr Temp Pulse Resp BP Pulse Ox 07/23/17 13:58 97.6 F 76 20 136/77 97 07/23/17 13:51 97.6 F 76 20 136/77 97 General Appearance: no apparent distress, alert Neurologic Exam: oriented x 3, cooperative Eye Exam: eyes nml inspection Ears, Nose, Throat Exam: moist mucous membranes Neck Exam: normal inspection Respiratory Exam: normal breath sounds, lungs clear, No crackles/rales, No rhonchi, No wheezing Cardiovascular Exam: regular rate/rhythm, normal heart sounds, No murmur Gastrointestinal/Abdomen Exam: soft, normal bowel sounds, tenderness (epigsatrum , LUQ), other (suprapubic catheter present; at site there is yellow thick exudate. mild erythema. Ostomy site RLQ.), No distention, No mass, No guarding , No rebound Extremity Exam: No pedal edema, No swelling Skin Exam: normal color, warm, dry, No rash Results - Other Procedures and Tests Respiratory Therapy 07/23/17 14:30 Smoking Cessation Education ONCE Assessment/Plan (1) Abdominal pain Current Visit: Yes Status: Acute Qualifiers: Abdominal location: left upper quadrant Qualified Code(s): R10.12 - Left upper quadrant pain Assessment & Plan: She had similar pain last month and was found to have an ileus - resolved after several days in the hospital. The KUB done this morning does not show any signs of ileus or SBO. Will observe for now. on bland low fat diet. Code(s): R10.9 - UNSPECIFIED ABDOMINAL PAIN (2) Chronic kidney disease (CKD) stage G3a/A1, moderately decreased glomerular filtration rate (GFR) between 45-59 mL/min/1.73 square meter and albuminuria creatinine ratio less than 30 mg/g Current Visit: No Status: Chronic Assessment & Plan: recheck labs in a.m. and will send results to Dr. Orourke. Code(s): N18.3 - CHRONIC KIDNEY DISEASE, STAGE 3 (MODERATE) (3) Suprapubic catheter Current Visit: Yes Status: Acute Assessment & Plan: Culturing the area around the catheter insertion (nurse NOT to remove or change the catheter at this time). Code(s): Z93.59 - OTHER CYSTOSTOMY STATUS (4) Short bowel syndrome Current Visit: No Status: Chronic Code(s): K91.2 - POSTSURGICAL MALABSORPTION, NOT ELSEWHERE CLASSIFIED (5) Cough Current Visit: Yes Status: Acute Assessment & Plan: check for influenza. Code(s): R05 - COUGH
[2017-07-23] MEDS: Lactated Ringers 1,000 ML IV SCH (16:07)
[2017-07-23] MEDS ORDERED: ATROPINE PO SCH (16:30)
[2017-07-23] MEDS ORDERED: PHENOBARBITAL PO SCH (16:30)
[2017-07-23] MEDS ORDERED: HYOSCYAMINE PO SCH (16:30)
[2017-07-23] MEDS ORDERED: SCOPOLAMINE PO SCH (16:30)
[2017-07-23] MEDS: IMODIUM 2 MG PO SCH (17:08)
[2017-07-23] MEDS: Valium 5 MG PO SCH (17:08)
[2017-07-23] MEDS: LYRICA 75 MG CAP PO SCH (20:24)
[2017-07-23] MEDS ORDERED: DILAUDID 2 MG INJECTION ONE (20:28)
[2017-07-23] MEDS: Hydromorphone 1 mg/ml Ampule IV PRN (20:30)
[2017-07-23] MEDS ORDERED: AMITRIPTYLINE HCL 100 MG PO SCH (22:00)
[2017-07-23] MEDS ORDERED: SANDOSTATIN 50MCG/ML SQ SCH (22:00)
[2017-07-23] MEDS ORDERED: DOXYLAMINE SUCCINATE 25 MG PO SCH (22:00)
[2017-07-24 00:29] VITALS: O2SAT 95
[2017-07-24] MEDS: Lactated Ringers 1,000 ML IV SCH ×2 (00:35→08:42)
[2017-07-24] MEDS ORDERED: DILAUDID 2 MG INJECTION ONE ×2 (00:41→04:45)
[2017-07-24] MEDS: Hydromorphone 1 mg/ml Ampule IV PRN ×2 (00:44→04:48)
[2017-07-24 04:17] VITALS: PULSE 80
[2017-07-24] MEDS: IMODIUM 2 MG PO SCH (05:52)
[2017-07-24] MEDS: Valium 5 MG PO SCH (05:52)
[2017-07-24 05:55] LABS: Mean Cell Volume 99.7 fl (78-100); Mean Platelet Volume 9.6 fl (6-9.5); Platelet Count 238 K/mm3 (150-450); Red Blood Count 2.96 M/mm3 (4.1-5.4); Red Cell Distribution Width 13.9 % (11.5-14.0); White Blood Count 4.6 K/mm3 (4.0-10.5)
[2017-07-24 06:48] LABS: ALBUMIN 2.9 g/dL (3.4-5.0); ALKALINE PHOSPHATASE 205 U/L (46-116); ANION GAP 9.1 MEQ/L (5-15); BLOOD UREA NITROGEN 10 mg/dL (9-20); CHLORIDE 104 mEq/L (98-107); Glucose 91 MG/DL (70-110); LIPASE 356 U/L (73-393); Potassium 4.2 mEq/L (3.5-5.1); SGOT/AST 76 U/L (15-37); SGPT/ALT 150 U/L (12-78); SODIUM 138 mEq/L (136-145); Total Protein 6.2 gm/dL (6.4-8.2)
[2017-07-24] MEDS ORDERED: DILAUDID 2 MG INJECTION IV PRN (07:30)
[2017-07-24 07:53] VITALS: BP 96/54
--- NOTE | 2017-07-24 08:44 | PCM.DS ---
Discharge Summary Date of Admission: 07/23/17 13:49 Admitting Physician: JOSE ZAMORANO Primary Care Provider: JOSE ZAMORANO Allergies Allergies oxybutynin Allergy (Severe, Verified 06/23/17 12:50) pharyngeal swelling ampicillin Allergy (Mild, Verified 06/23/17 12:50) hives duloxetine [From Cymbalta] Allergy (Mild, Verified 06/23/17 12:50) nausea erythromycin base [Erythromycin Base] Allergy (Mild, Verified 06/23/17 12:50) [facility] Summary - Hospital Course Hospital Course: Pt admitted directly after going to infusion, was noted to have increased abd pain x 2d. Amylase and lipase were wnl. She received IV fluids as a bolus in infusion then all night on med surg. This morning her labs look very good with K+ 4.4 and Cr under 1.0. She is complaining of some abdominal "soreness" but the pain is decreased. She has been tolerating po. She does note that she has some head congestion and cough this morning. - Vitals & Intake/Output Vital Signs: Vital Signs Temperature 97.7 F 07/24/17 07:52 Pulse Rate 80 07/24/17 07:52 Respiratory Rate 16 07/24/17 07:52 Blood Pressure 96/54 07/24/17 07:52 O2 Sat by Pulse Oximetry 95 07/24/17 07:52 Intake & Output: Intake & Output 07/21/17 07/22/17 07/23/17 07/24/17 11:59 11:59 11:59 11:59 Intake Total 960 Output Total 50 Balance 910 Weight 59.194 kg - Lab Result Diagrams: 07/24/17 05:30 07/24/17 05:30 Lab Results-Last 24 Hrs: Lab Results-Last 24 Hours 07/23/17 07/24/17 07/24/17 Range/Units Unknown 05:30 05:30 WBC 4.6 (4.0-10.5) K/mm3 RBC 2.96 L (4.1-5.4) M/mm3 Hgb 9.2 L (12.0-16.0) gm/dl Hct 29.5 L (35-47) % MCV 99.7 (78-100) fl MCH 31.0 (26-32) pg MCHC 31.2 L (32-36) g/dl RDW 13.9 (11.5-14.0) % Plt Count 238 (150-450) K/mm3 MPV 9.6 H (6-9.5) fl Sodium 138 (136-145) mEq/L Potassium 4.2 (3.5-5.1) mEq/L Chloride 104 (98-107) mEq/L Carbon Dioxide 29.0 (21-32) mEq/L Anion Gap 9.1 (5-15) MEQ/L BUN 10 (9-20) mg/dL Creatinine 0.92 (0.55-1.30) mg/dl Estimated GFR > 60 ML/MIN Glucose 91 (70-110) MG/DL Calcium 8.2 L (8.5-10.1) mg/dL Total Bilirubin 0.10 L (0.2-1.0) mg/dL AST 76 H (15-37) U/L ALT 150 H (12-78) U/L Alkaline Phosphatase 205 H (46-116) U/L Serum Total Protein 6.2 L (6.4-8.2) gm/dL Albumin 2.9 L (3.4-5.0) g/dL Amylase 73 (25-115) U/L Lipase 356 (73-393) U/L Influenza Type A Ag NEGATIVE (NEGATIVE) Influenza Type B Ag NEGATIVE (NEGATIVE) RSV (PCR) NEGATIVE (Negative) - Procedures and Test Procedures and Tests throughout Hospitalization: Therapy Orders & Screens 07/23/17 14:30 Smoking Cessation Education ONCE Comment: Diagnosis: Abd pain,pelvic pain,chronic renal failure,elevated LFT's Smoking Status: Heavy tobacco smoker How long have you smoked: 20 Have you smoked in the past 12 months: Yes Approximately how many cigarettes per day: 10 Do you dip or chew tobacco: No Discharge Exam General Appearance: no apparent distress, alert Neurologic Exam: oriented x 3, cooperative Skin Exam: normal color, warm, dry, No rash Ears, Nose, Throat Exam: TM abnormal (L) Respiratory Exam: normal breath sounds, lungs clear, No crackles/rales, No rhonchi, No wheezing Cardiovascular Exam: regular rate/rhythm, normal heart sounds, No murmur Gastrointestinal/Abdomen Exam: soft, normal bowel sounds, tenderness (LUQ, epigastrum), No distention, No mass, No guarding, No rebound Extremity Exam: No pedal edema, No swelling Final Diagnosis/Problem List - Final Discharge Diagnosis/Problem (1) Abdominal pain Current Visit: Yes Status: Acute Assessment & Plan: much improved. Home on bland low fat diet. (2) Chronic kidney disease (CKD) stage G3a/A1, moderately decreased glomerular filtration rate (GFR) between 45-59 mL/min/1.73 square meter and albuminuria creatinine ratio less than 30 mg/g Current Visit: No Status: Chronic Assessment & Plan: eGFR very good today with the fluids. She will return for IV fluids tomorrow as usually scheduled in outpatient infusion. (3) Suprapubic catheter Current Visit: Yes Status: Chronic Assessment & Plan: culture is pending of the exudate; the surrounding tissue is not erythematous. (4) Short bowel syndrome Current Visit: No Status: Chronic (5) Cough Current Visit: Yes Status: Acute Assessment & Plan: Her lungs sound clear. I did advise there is a high incidence of influenza A in the community and if she has any fever she needs to be tested JONH. - Discharge Disposition: Home, Self-Care Condition: Stable Prescriptions: Continue Pregabalin [Lyrica] 75 mg PO BID Multivitamin [Multivitamins] 1 each PO DAILY Hydrocodone Bit/Acetaminophen [[place] 7.5-325 Tablet] 1 each PO Q6HPRN PRN PRN Reason: Pain Doxylamine Succinate [Unisom Sleep Aid] 25 mg PO HS Diazepam 5 mg [Valium 5 MG] 5 mg PO TID Ascorbic Acid [Vitamin C] 1,000 mg PO DAILY Cholecalciferol (Vitamin D3) [Vitamin D] 2,000 iu PO DAILY Promethazine HCl 25 mg [Phenergan 25 mg] 25 mg PO BIDPRN PRN PRN Reason: Nausea Midodrine HCl 10 mg PO TID Lipase/Protease/Amylase [Pancrelipase EC 20,000 Capsule] 1 cap PO TID Octreotide Acetate 100 mcg SQ BID Phenobarb/Hyoscy/Atropine/Scop [Belladonna-Phenobarb Elixir] 10 ml PO ACHS Paroxetine HCl [Paxil] 40 mg PO DAILY Cyanocobalamin (Vitamin B-12) [Vitamin B12] 2,500 mcg PO DAILY Loperamide HCl 2 mg [Imodium 2 mg] 3 cap PO TID MDD 24 mg Amitriptyline HCl 100 mg PO HS Sodium Chloride 1 gm PO DAILY Follow up with: JOSE ZAMORANO [Primary Care Provider] - 1 Week
[2017-07-24] MEDS: LYRICA 75 MG CAP PO SCH (09:49)
[2017-07-24] MEDS: PROAMATINE 5 MG PO SCH (09:50)
[2017-07-24] MEDS ORDERED: SODIUM CHLORIDE 1 GM PO SCH ×2 (10:00)
[2017-07-24] MEDS ORDERED: [UNRECOGNIZED DRUG - OTHER] PO SCH ×2 (10:00)
[2017-07-24] MEDS ORDERED: NON-FORMULARY ITEM (Paroxetine Hcl [Paxil] 40 MG) PO SCH (10:00)
[2017-07-24] MEDS ORDERED: Paxil 20 MG PO SCH (10:00)
== END 2017-07-24 10:05 | disposition home or self-care (01) ==
LOC: MED SURG 13:49
PROVIDERS: ADMIT Family Medicine; ATTEND Family Medicine
DX: R10.12 Left upper quadrant pain (principal); N18.3 Chronic kidney disease, stage 3 (moderate); Z93.59 Other cystostomy status; K91.2 Postsurgical malabsorption, not elsewhere classified; R05 Cough
CPT/HCPCS: 36415; 80053; 82150; 83690; 85027; 87070; 87205; 87631; G0378; J1170; J2270; A9270-GY

== ENCOUNTER 2017-08-07 08:06 | Inpatient (IN) | payer MEDICARE ==
[2017-08-07] MEDS ORDERED: DILAUDID 2 MG INJECTION IV PRN (10:08)
[2017-08-07] MEDS ORDERED: POTASSIUM CHLORIDE IV SCH ×3 (10:30)
[2017-08-07] MEDS ORDERED: MAGNESIUM SULFATE IV SCH ×3 (10:30)
[2017-08-07] MEDS ORDERED: [UNRECOGNIZED DRUG - OTHER] IV SCH ×3 (10:30)
--- NOTE | 2017-08-07 11:34 | XRAY ---
Indication: Abdominal pain. Comparison: July 23, 2017. 2 views of the abdomen now demonstrates mild air distended bowel loop at the level of the pelvic inlet with synchronous fluid leveling, focal ileus versus enteritis. No abnormal bowel dilatation, obstruction, or free air. Solid organs unremarkable. Stable cholecystectomy clips and right lower quadrant ostomy. New suprapubic catheter. Single PA chest demonstrates normal heart, lungs, and bony thorax with a right-sided Port-A-Cath. Impression: 1. Pelvic mild air distended bowel loop with synchronous fluid leveling. Rule out focal ileus versus enteritis. 2. Nonacute one view chest.
[2017-08-07] MEDS ORDERED: PHENERGAN 25 MG PO PRN (11:53)
[2017-08-07] MEDS ORDERED: MEDICATION INTERVENTION MC PRN (12:11)
[2017-08-07] MEDS: DILAUDID 1 MG/1ML PCA IV PRN (13:05)
[2017-08-07 13:54] LABS: Appearance CLOUDY (CLEAR); Leukocyte Esterase 2+ (NEGATIVE); Nitrite POSITIVE (NEGATIVE); Specific Gravity 1.005 (1.005-1.025)
[2017-08-07 13:55] LABS: Bilirubin NEGATIVE (NEGATIVE); Blood 250 Ery/ul (0-5); Glucose NEGATIVE (NEGATIVE); Ketones TRACE (NEGATIVE); Protein,Urine Dip 500 (Negative); Urobilinogen NORMAL mg/dL (0-1)
[2017-08-07 13:57] LABS: Bacteria MANY /HPF (NEGATIVE); Epithelial Cells RARE /HPF (FEW); WBC >100 /HPF (0-5)
[2017-08-07] MEDS ORDERED: LIPASE PO SCH ×2 (15:00)
[2017-08-07] MEDS ORDERED: AMYLASE PO SCH ×2 (15:00)
[2017-08-07] MEDS ORDERED: PROTEASE PO SCH ×2 (15:00)
[2017-08-07] MEDS: Valium 5 MG PO SCH ×2 (15:08→20:54)
[2017-08-07] MEDS ORDERED: PATIENT OWN MEDICATION SQ SCH (16:30)
[2017-08-07] MEDS ORDERED: BENADRYL 25 MG CAPSULE PO PRN (16:32)
--- NOTE | 2017-08-07 16:50 | PCM.HP ---
History of Present Illness - Chief Complaint Chief Complaint: abdominal pain,renal failure History of Present Illness: is a 52 year old female, well known to me, pt with renal failure, short gut syndrome with ostomy and suprapubic catheter who came in today complaining of abd pain x 2-3 days. Pain is LUQ, constant, 9/10. She was in outpatient infusion getting her thrice-weekly IV fluids. Her abd was quite tender in LUQ and she was admitted for further IV fluids and pain control. She has a history of recent ileus, ?SBO with similar sx and her abd film is consistent with the same. 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 - Review of Systems Constitutional: No Fever Abdominal/Gastrointestinal: Abdominal Pain, Other (increased ostomy output) Genitourinary Symptoms: Other (bladder spasms; resolved since in hospital on fluids) All Other Systems: Reviewed and Negative Medications & Allergies Home Medications: Home Medication List Ascorbic Acid [Vitamin C] 1,000 mg PO DAILY 12/24/16 [History Confirmed 08/07/17 ] Cholecalciferol (Vitamin D3) [Vitamin D] 2,000 iu PO DAILY 12/24/16 [ History Confirmed 08/07/17] Diazepam 5 mg [Valium 5 MG] 5 mg PO TID 12/24/16 [History Confirmed ] Doxylamine Succinate [Unisom Sleep Aid] 25 mg PO HS 12/24/16 [History Confirmed 08/07/17] Multivitamin [Multivitamins] 1 each PO DAILY 12/24/16 [History Confirmed ] Pregabalin [Lyrica] 75 mg PO BID 12/24/16 [History Confirmed 08/07/17] Promethazine HCl 25 mg [Phenergan 25 mg] 25 mg PO BIDPRN PRN 01/07/17 [ History Confirmed 08/07/17] Lipase/Protease/Amylase [Pancrelipase EC 20,000 Capsule] 1 cap PO TID 01/13/17 [ History Confirmed 08/07/17] Midodrine HCl 10 mg PO TID 01/13/17 [History Confirmed 08/07/17] Octreotide Acetate 100 mcg SQ BID 01/13/17 [History Confirmed 08/07/17] Phenobarb/Hyoscy/Atropine/Scop [Belladonna-Phenobarb Elixir] 10 ml PO ACHS 01/13 [History Confirmed 08/07/17] Paroxetine HCl [Paxil] 40 mg PO DAILY 01/20/17 [History Confirmed 08/07/17] Cyanocobalamin (Vitamin B-12) [Vitamin B12] 2,500 mcg PO DAILY 03/05/17 [ History Confirmed 08/07/17] Loperamide HCl 2 mg [Imodium 2 mg] 4 cap PO TID MDD 24 mg 05/22/17 [ History Confirmed 08/07/17] Amitriptyline HCl 100 mg PO HS 07/04/17 [History Confirmed 08/07/17] Sodium Chloride 1 gm PO BID 07/23/17 [History Confirmed 08/07/17] Hydrocodone/APAP 10/325 mg [[place] 10/325 MG Tablet] 1 tab PO Q6H PRN PRN 08/05/17 [History Confirmed 08/07/17] Lipase/Protease/Amylase [Concepcion Teran 24,000 Units Capsule] 1 each PO TID 08/05/17 [ History Confirmed 08/07/17] Mirabegron [Myrbetriq] 50 mg PO QAM 08/05/17 [History Confirmed 08/07/17] Allergies/Adverse Reactions: Allergies Allergy/AdvReac Type Severity Reaction Status Date / Time oxybutynin Allergy Severe Verified 06/23/17 12:50 ampicillin Allergy Mild Verified 06/23/17 12:50 duloxetine [From Cymbalta] Allergy Mild Verified 06/23/17 12:50 erythromycin base Allergy Mild Verified 06/23/17 12:50 [Erythromycin Base] - Past Medical History Past Medical History: Yes Neurological History: Migraines ENT History: No Pertinent History Cardiac History: No Pertinent History Respiratory History: No Pertinent History Endocrine Medical History: No Pertinent History Musculoskelatal History: No Pertinent History GI Medical History: Colitis, Hepatitis, Pancreatitis, Other History: Renal Disease, Other Pyscho-Social History: Anxiety, Depression Reproductive Disorders: No Pertinent History Comment: short gut syndrome,chronic diarrhea,small bowel bacterial overgrowth. hx bowel obstruction 04/03, 06/23/17 and others stated in the past. stage 3 kidney disease. frequent pancreatitis. hx hepatitis - Female History Hx Last Menstrual Period: hysterectomy Are you now?: No - Past Surgical History Past Surgical History: Yes Neuro Surgical History: No Pertinent History Cardiac History: No Pertinent History Respiratory Surgery: No Pertinent History GI Surgical History: Cholecystectomy, Colon Resection, Other Genitourinary Surgical Hx: Other Musculskeletal Surgical Hx: No Pertinent History Female Surgical History: Hysterectomy Other Surgical History: 100cm small bowel removal and resection and colon and large bowel removed, bladder surgen with suprapubic catheter placed. stent in rt ureter ,bladder revision with larger stent. pt states she is scheduled for a liver biopsy with Dr. Castle on 06/16/17 - Social History Smoking Status: Heavy tobacco smoker How long have you smoked: 20 Exposure to second hand smoke: Yes Alcohol: None Drug Use: none - Physical Exam Vital Signs: Vital Signs - 24 hr Temp Pulse Resp BP Pulse Ox 08/07/17 16:00 16 08/07/17 15:53 97.9 F 76 16 106/64 97 08/07/17 13:05 96 08/07/17 11:25 98 08/07/17 10:03 97.6 F 73 16 126/76 98 08/07/17 09:54 97.6 F 73 126/76 08/07/17 09:52 97.6 F 73 16 126/76 98 General Appearance: no apparent distress, alert Neurologic Exam: oriented x 3, cooperative Eye Exam: eyes nml inspection Neck Exam: normal inspection, non-tender, No lymphadenopathy Respiratory Exam: normal breath sounds, lungs clear, No crackles/rales, No rhonchi, No wheezing Cardiovascular Exam: regular rate/rhythm, normal heart sounds, No murmur Gastrointestinal/Abdomen Exam: soft, tenderness (LUQ, epigastrum, LLQ), guarding , other (hypoactive bowel sounds), No distention, No mass, No rebound Back Exam: normal inspection, No rash Extremity Exam: normal inspection, No pedal edema, No swelling Results - Labs Lab/Micro Results: Lab Results-Last 24 Hours 08/07/17 Range/Units 12:44 Ur Collection Type CATH Urine Color YELLOW (YELLOW) Urine Appearance CLOUDY (CLEAR) Urine pH 8.0 (5-6) Ur Specific [place] 1.005 (1.005-1.025) Urine Protein 500 (Negative) Urine Ketones TRACE (NEGATIVE) Urine Blood 250 (0-5) Gregg/ul Urine Nitrite POSITIVE (NEGATIVE) Urine Bilirubin NEGATIVE (NEGATIVE) Urine Urobilinogen NORMAL (0-1) mg/dL Ur Leukocyte Esterase 2+ (NEGATIVE) Urine Microscopic RBC 25-50 (0-2) /HPF Urine Microscopic WBC >100 (0-5) /HPF Ur Epithelial Cells RARE (FEW) /HPF Urine Bacteria MANY (NEGATIVE) /HPF Urine Culture Reflexed YES (NO) Urine Glucose NEGATIVE (NEGATIVE) mg/dL Specimen Received 08/07/17 0908 - Radiology Impressions Radiology Exams & Impressions: Radiology Procedures Category Date Time Status OBSTR/ACUTE ABDOMEN SERIES Routine Exams 08/07/17 10:30 Completed Assessment/Plan (1) Abdominal pain Current Visit: No Status: Acute Qualifiers: Abdominal location: left upper quadrant Qualified Code(s): R10.12 - Left upper quadrant pain Assessment & Plan: Ileus per XR. Lipase and amylase pending. I have stopped her octreotide and other antidiarrheal medicines for now. CLD. I do expect that her ostomy output will increase as a result of the CLD but I think it's necessary until the ileus resolves. She has an appointment with GI in [facility] later this month. Code(s): R10.9 - UNSPECIFIED ABDOMINAL PAIN (2) Chronic kidney disease (CKD) stage G3a/A1, moderately decreased glomerular filtration rate (GFR) between 45-59 mL/min/1.73 square meter and albuminuria creatinine ratio less than 30 mg/g Current Visit: No Status: Chronic Assessment & Plan: Dr. Orourke consulted. Kidney function actually was improved this morning. Recheck daily. Code(s): N18.3 - CHRONIC KIDNEY DISEASE, STAGE 3 (MODERATE) (3) Elevated liver enzymes Current Visit: No Status: Chronic Code(s): R74.8 - ABNORMAL LEVELS OF OTHER SERUM ENZYMES (4) Ileostomy care Current Visit: No Status: Chronic Code(s): Z43.2 - ENCOUNTER FOR ATTENTION TO ILEOSTOMY (5) Short bowel syndrome Current Visit: No Status: Chronic Code(s): K91.2 - POSTSURGICAL MALABSORPTION, NOT ELSEWHERE CLASSIFIED (6) Suprapubic catheter Current Visit: No Status: Chronic Code(s): Z93.59 - OTHER CYSTOSTOMY STATUS
[2017-08-07] MEDS ORDERED: PATIENT OWN MEDICATION PO SCH (17:00)
[2017-08-07 17:58] LABS: AMYLASE 94 U/L (25-115); LIPASE 266 U/L (73-393)
[2017-08-07] MEDS: NON-FORMULARY ITEM PO SCH (20:54)
[2017-08-07] MEDS: LYRICA 75 MG CAP PO SCH (20:54)
[2017-08-07] MEDS ORDERED: AMITRIPTYLINE HCL 100 MG PO SCH (22:00)
[2017-08-07] MEDS ORDERED: [UNRECOGNIZED DRUG - OTHER] PO SCH (22:00)
[2017-08-07] MEDS ORDERED: SANDOSTATIN 50MCG/ML SQ SCH (22:00)
[2017-08-07] MEDS ORDERED: DOXYLAMINE SUCCINATE 25 MG PO SCH (22:00)
[2017-08-07] MEDS ORDERED: SODIUM CHLORIDE 1 GM PO SCH (22:00)
[2017-08-08] MEDS: Sodium Chloride 0.9% 1000 ML 1,000 ML IV SCH ×4 (00:36→21:47)
[2017-08-08 05:45] LABS: Hematocrit 29.9 % (35-47); Hemoglobin 9.2 gm/dl (12.0-16.0); Mean Cell Volume 100.7 fl (78-100); Mean Corpuscular Hgb Concent. 30.8 g/dl (32-36); Mean Platelet Volume 9.5 fl (6-9.5); Platelet Count 240 K/mm3 (150-450); Red Blood Count 2.97 M/mm3 (4.1-5.4); Red Cell Distribution Width 13.4 % (11.5-14.0); White Blood Count 3.9 K/mm3 (4.0-10.5)
[2017-08-08 05:53] LABS: Mean Corpuscular Hemoglobin 30.9 pg (26-32)
[2017-08-08 06:25] LABS: ALBUMIN 2.8 g/dL (3.4-5.0); ALKALINE PHOSPHATASE 162 U/L (46-116); ANION GAP 11.3 MEQ/L (5-15); BLOOD UREA NITROGEN 5 mg/dL (9-20); CHLORIDE 106 mEq/L (98-107); Calcium 7.9 mg/dL (8.5-10.1); EST GLOMERULAR FILTRATION RATE > 60 ML/MIN; Glucose 90 MG/DL (70-110); SGOT/AST 40 U/L (15-37); SGPT/ALT 89 U/L (12-78); SODIUM 141 mEq/L (136-145); Total Protein 5.8 gm/dL (6.4-8.2)
[2017-08-08 07:01] LABS: BILIRUBIN,TOTAL < 0.10 mg/dL (0.2-1.0)
--- NOTE | 2017-08-08 08:10 | PCM.NOTE ---
Date and Time: 08/08/17805 Subjective Assessment: Abd pain is less intense, 7/10 thi smorning. Increased yesterday w eating jello. - Review of Systems Constitutional: No Fever Abdominal/Gastrointestinal: Abdominal Pain Objective Exam General Appearance: no apparent distress, alert Neurologic Exam: oriented x 3, cooperative Skin Exam: normal color, warm, dry, No rash Respiratory Exam: normal breath sounds, lungs clear, No crackles/rales, No rhonchi, No wheezing Cardiovascular Exam: tachycardia, No murmur Gastrointestinal/Abdomen Exam: soft, tenderness (LUQ; decreased from yesterday) , other (hypoactive bowel sounds), No distention, No mass, No guarding, No rebound Extremity Exam: No pedal edema, No swelling OBJECTIVE DATA Vital Signs: Vital Signs - 24 hr Temp Pulse Resp BP Pulse Ox 08/08/17 07:15 97.7 F 76 18 99/58 97 08/08/17 04:00 16 08/08/17 03:48 97.5 F 70 16 90/53 94 L 08/08/17 00:00 97.4 F 67 16 82/52 93 L 08/07/17 22:40 94 L 08/07/17 20:00 18 08/07/17 19:56 98.7 F 73 18 100/60 95 08/07/17 17:05 97 08/07/17 16:00 16 08/07/17 15:53 97.9 F 76 16 106/64 97 08/07/17 13:05 96 08/07/17 11:25 98 08/07/17 10:03 97.6 F 73 16 126/76 98 08/07/17 09:54 97.6 F 73 126/76 08/07/17 09:52 97.6 F 73 16 126/76 98 Pain Assessment - Last Documented Pain Intensity 5 Pain Scale Used 0-10 Pain Scale Intake and Output: Intake & Output 08/05/17 08/06/17 08/07/17 08/08/17 11:59 11:59 11:59 11:59 Intake Total 4641 Output Total 1875 Balance 2766 Weight 60.781 kg Lab Results: Lab Results-Last 24 Hours 08/07/17 08/07/17 08/07/17 Range/Units 08:30 12:44 18:30 WBC (4.0-10.5) K/mm3 RBC (4.1-5.4) M/mm3 Hgb (12.0-16.0) gm/dl Hct (35-47) % MCV (78-100) fl MCH (26-32) pg MCHC (32-36) g/dl RDW (11.5-14.0) % Plt Count (150-450) K/mm3 MPV (6-9.5) fl Sodium (136-145) mEq/L Potassium 4.7 (3.5-5.1) mEq/L Chloride (98-107) mEq/L Carbon Dioxide (21-32) mEq/L Anion Gap (5-15) MEQ/L BUN (9-20) mg/dL Creatinine (0.55-1.30) mg/dl Estimated GFR ML/MIN Glucose (70-110) MG/DL Calcium (8.5-10.1) mg/dL Magnesium (1.8-2.4) mg/dL Total Bilirubin (0.2-1.0) mg/dL AST (15-37) U/L ALT (12-78) U/L Alkaline Phosphatase (46-116) U/L Serum Total Protein (6.4-8.2) gm/dL Albumin (3.4-5.0) g/dL Amylase 94 (25-115) U/L Lipase 266 (73-393) U/L Ur Collection Type CATH Urine Color YELLOW (YELLOW) Urine Appearance CLOUDY (CLEAR) Urine pH 8.0 (5-6) Ur Specific [place] 1.005 (1.005-1.025) Urine Protein 500 (Negative) Urine Ketones TRACE (NEGATIVE) Urine Blood 250 (0-5) Gregg/ul Urine Nitrite POSITIVE (NEGATIVE) Urine Bilirubin NEGATIVE (NEGATIVE) Urine Urobilinogen NORMAL (0-1) mg/dL Ur Leukocyte Esterase 2+ (NEGATIVE) Urine Microscopic RBC 25-50 (0-2) /HPF Urine Microscopic WBC >100 (0-5) /HPF Ur Epithelial Cells RARE (FEW) /HPF Urine Bacteria MANY (NEGATIVE) /HPF Urine Culture Reflexed YES (NO) Urine Glucose NEGATIVE (NEGATIVE) mg/dL Specimen Received 08/07/17 0946 08/08/17 08/08/17 08/08/17 Range/Units 05:30 05:30 05:30 WBC 3.9 L (4.0-10.5) K/mm3 RBC 2.97 L (4.1-5.4) M/mm3 Hgb 9.2 L (12.0-16.0) gm/dl Hct 29.9 L (35-47) % MCV 100.7 H (78-100) fl MCH 30.9 (26-32) pg MCHC 30.8 L (32-36) g/dl RDW 13.4 (11.5-14.0) % Plt Count 240 (150-450) K/mm3 MPV 9.5 (6-9.5) fl Sodium 141 (136-145) mEq/L Potassium 4.0 (3.5-5.1) mEq/L Chloride 106 (98-107) mEq/L Carbon Dioxide 28.0 (21-32) mEq/L Anion Gap 11.3 (5-15) MEQ/L BUN 5 L (9-20) mg/dL Creatinine 0.80 (0.55-1.30) mg/dl Estimated GFR > 60 ML/MIN Glucose 90 (70-110) MG/DL Calcium 7.9 L (8.5-10.1) mg/dL Magnesium 1.9 (1.8-2.4) mg/dL Total Bilirubin < 0.10 L (0.2-1.0) mg/dL AST 40 H (15-37) U/L ALT 89 H (12-78) U/L Alkaline Phosphatase 162 H (46-116) U/L Serum Total Protein 5.8 L (6.4-8.2) gm/dL Albumin 2.8 L (3.4-5.0) g/dL Amylase (25-115) U/L Lipase (73-393) U/L Ur Collection Type Urine Color (YELLOW) Urine Appearance (CLEAR) Urine pH (5-6) Ur Specific [place] (1.005-1.025) Urine Protein (Negative) Urine Ketones (NEGATIVE) Urine Blood (0-5) Gregg/ul Urine Nitrite (NEGATIVE) Urine Bilirubin (NEGATIVE) Urine Urobilinogen (0-1) mg/dL Ur Leukocyte Esterase (NEGATIVE) Urine Microscopic RBC (0-2) /HPF Urine Microscopic WBC (0-5) /HPF Ur Epithelial Cells (FEW) /HPF Urine Bacteria (NEGATIVE) /HPF Urine Culture Reflexed (NO) Urine Glucose (NEGATIVE) mg/dL Specimen Received Radiology Exams: Radiology Procedures Category Date Time Status OBSTR/ACUTE ABDOMEN SERIES Routine Exams 08/07/17 10:30 Completed Multi-Disciplinary Progress Notes: Multi-Disciplinary Progress Notes 08/07/17 11:26 Respiratory Note by Delicia Kruse PT'S ON CONTINUOUS PULSE OXIMETER VIA TELEMETRY. Initialized on 08/07/17 11:26 - END OF NOTE Assessment/Plan (1) Ileus Current Visit: Yes Status: Acute Assessment & Plan: CLD and holding antidiarrheals until she improves. Somewhat better today. No changes for today. Code(s): K56.7 - ILEUS, UNSPECIFIED (2) UTI (urinary tract infection) Current Visit: Yes Status: Acute Qualifiers: Urinary tract infection type: acute cystitis Hematuria presence: with hematuria Qualified Code(s): N30.01 - Acute cystitis with hematuria Assessment & Plan: Will start rocephin. UCx pending. Code(s): N39.0 - URINARY TRACT INFECTION, SITE NOT SPECIFIED (3) Abdominal pain Current Visit: No Status: Acute Qualifiers: Abdominal location: left upper quadrant Qualified Code(s): R10.12 - Left upper quadrant pain Assessment & Plan: likely due to ileus. Improved. Lipase and amylase wnl. Code(s): R10.9 - UNSPECIFIED ABDOMINAL PAIN (4) Chronic kidney disease (CKD) stage G3a/A1, moderately decreased glomerular filtration rate (GFR) between 45-59 mL/min/1.73 square meter and albuminuria creatinine ratio less than 30 mg/g Current Visit: No Status: Chronic Assessment & Plan: Renal function wnl today. on IVF. Nephrology consulting. Code(s): N18.3 - CHRONIC KIDNEY DISEASE, STAGE 3 (MODERATE) (5) Elevated liver enzymes Current Visit: No Status: Chronic Assessment & Plan: actually better than they've been in some months Code(s): R74.8 - ABNORMAL LEVELS OF OTHER SERUM ENZYMES (6) Ileostomy care Current Visit: No Status: Chronic Code(s): Z43.2 - ENCOUNTER FOR ATTENTION TO ILEOSTOMY (7) Short bowel syndrome Current Visit: No Status: Chronic Code(s): K91.2 - POSTSURGICAL MALABSORPTION, NOT ELSEWHERE CLASSIFIED (8) Suprapubic catheter Current Visit: No Status: Chronic Code(s): Z93.59 - OTHER CYSTOSTOMY STATUS
[2017-08-08] MEDS ORDERED: NON-FORMULARY ITEM (Paroxetine Hcl [Paxil] 40 MG) PO SCH (10:00)
[2017-08-08] MEDS ORDERED: NON-FORMULARY ITEM (Mirabegron [Myrbetriq] 50 MG) PO SCH (10:00)
[2017-08-08] MEDS: NON-FORMULARY ITEM PO SCH ×2 (10:24→21:32)
[2017-08-08] MEDS: ROCEPHIN 1 Gm-D5w 50 ml Bag** 1 G/50 ML IVPB IV SCH (10:24)
[2017-08-08] MEDS: Valium 5 MG PO SCH ×3 (10:24→21:33)
[2017-08-08] MEDS: Paxil 20 MG PO SCH (10:24)
[2017-08-08] MEDS: LYRICA 75 MG CAP PO SCH ×2 (10:24→21:32)
[2017-08-08] MEDS: PATIENT OWN MEDICATION PO SCH (10:25)
[2017-08-08] MEDS: PROAMATINE 5 MG PO SCH ×2 (15:07→21:33)
[2017-08-08] MEDS: DILAUDID 1 MG/1ML PCA IV PRN (18:02)
[2017-08-09] MEDS: Sodium Chloride 0.9% 1000 ML 1,000 ML IV SCH ×3 (05:27→22:01)
[2017-08-09] MEDS: ROCEPHIN 1 Gm-D5w 50 ml Bag** 1 G/50 ML IVPB IV SCH (08:32)
[2017-08-09] MEDS: Paxil 20 MG PO SCH (08:33)
[2017-08-09] MEDS: LYRICA 75 MG CAP PO SCH (08:34)
[2017-08-09] MEDS: Valium 5 MG PO SCH ×3 (08:34→22:55)
[2017-08-09] MEDS: PROAMATINE 5 MG PO SCH ×2 (08:35→15:49)
[2017-08-09] MEDS: NON-FORMULARY ITEM PO SCH (08:36)
[2017-08-09] MEDS: PATIENT OWN MEDICATION PO SCH (08:37)
--- NOTE | 2017-08-09 14:02 | PCM.NOTE ---
Date and Time: 08/09/17 2444 Subjective Assessment: She reports she is having more urine than ostomy output. She continues to have left upper quadrant pain and requires her clinical psychologist private practice. Her nurse says she has used it 3 times in the last hour. Patient wants a low fat diet to see how this affects her abdominal pain. She also states she wants to leave before the snow storm that is coming. - Review of Systems Constitutional: No Symptoms Eyes: No Symptoms Ears, Nose, & Throat: No Symptoms Respiratory: No Symptoms Cardiac: No Symptoms Abdominal/Gastrointestinal: Abdominal Pain, No Nausea, No Vomiting Genitourinary Symptoms: No Symptoms Musculoskeletal: No Symptoms Objective Exam General Appearance: no apparent distress, alert, other (talkative, able to ambulate in the [place]) Neurologic Exam: alert, cooperative Skin Exam: normal color, warm, dry, No rash Respiratory Exam: normal breath sounds, lungs clear, airway intact, No crackles/ rales, No rhonchi, No wheezing Cardiovascular Exam: regular rate/rhythm, normal heart sounds, No murmur, No friction rub, No gallop Gastrointestinal/Abdomen Exam: soft, tenderness, other (ostomy in place), No distention, No mass Extremity Exam: normal inspection, other (no c/c/e) OBJECTIVE DATA Vital Signs: Vital Signs - 24 hr Temp Pulse Resp BP Pulse Ox 08/09/17 12:27 97.6 F 82 20 125/69 96 08/09/17 11:52 18 08/09/17 08:00 18 08/09/17 07:19 97.8 F 83 18 123/66 98 08/09/17 06:02 94 L 08/09/17 04:07 98.0 F 77 16 119/73 95 08/09/17 02:02 97 08/08/17 23:38 97.6 F 76 15 101/64 97 08/08/17 22:02 96 08/08/17 21:31 95 08/08/17 20:00 97.9 F 82 16 107/60 96 08/08/17 16:20 97.8 F 79 20 109/65 100 08/08/17 16:00 20 Pain Assessment - Last Documented Pain Intensity 7 Pain Scale Used 0-10 Pain Scale Intake and Output: Intake & Output 08/07/17 08/08/17 08/09/17 08/10/17 06:59 06:59 06:59 06:59 Intake Total 4641 4540 1140 Output Total 9176 7530 700 Balance 2766 2090 440 Weight 60.781 kg 60.781 kg Radiology Exams: Radiology Procedures Category Date Time Status OBSTR/ACUTE ABDOMEN SERIES Routine Exams 08/09/17 Ordered Multi-Disciplinary Progress Notes: Multi-Disciplinary Progress Notes 08/08/17 16:06 Pharmacy Note by PROGRAM PRODUCTION SPECIALIST,PHARM Please be aware of possible drug interaction between midodrine and amitriptyline. May increase effect of midodrine. Serenity Grigsby, Student Pharmacist. Initialized on 08/08/17 16:06 - END OF NOTE Assessment/Plan (1) Ileus Current Visit: Yes Status: Acute Assessment & Plan: I discussed with patient that I would like to check an X-ray before advancing her diet as she is still requiring the PRESS LEADER for her abdominal pain and if she developed an obstruction, she would need an NG tube. I encouraged her to try not to push her PRESS LEADER as often if her abdominal pain is getting better. Code(s): K56.7 - ILEUS, UNSPECIFIED (2) UTI (urinary tract infection) Current Visit: Yes Status: Acute Qualifiers: Urinary tract infection type: acute cystitis Hematuria presence: with hematuria Qualified Code(s): N30.01 - Acute cystitis with hematuria Assessment & Plan: On ceftriaxone. Code(s): N39.0 - URINARY TRACT INFECTION, SITE NOT SPECIFIED (3) Abdominal pain Current Visit: No Status: Acute Qualifiers: Abdominal location: left upper quadrant Qualified Code(s): R10.12 - Left upper quadrant pain Code(s): R10.9 - UNSPECIFIED ABDOMINAL PAIN (4) Chronic kidney disease (CKD) stage G3a/A1, moderately decreased glomerular filtration rate (GFR) between 45-59 mL/min/1.73 square meter and albuminuria creatinine ratio less than 30 mg/g Current Visit: No Status: Chronic Assessment & Plan: Creatinine normal yesterday, will repeat labs tomorrow. Code(s): N18.3 - CHRONIC KIDNEY DISEASE, STAGE 3 (MODERATE) (5) Short bowel syndrome Current Visit: No Status: Chronic Code(s): K91.2 - POSTSURGICAL MALABSORPTION, NOT ELSEWHERE CLASSIFIED (6) Ileostomy in place Current Visit: No Status: Chronic Code(s): Z93.2 - ILEOSTOMY STATUS
[2017-08-09] MEDS: Macrobid 100MG Capsule PO SCH (18:35)
[2017-08-09] MEDS ORDERED: Valium 5 MG ONE (21:27)
--- NOTE | 2017-08-09 22:44 | XRAY ---
Indication: Follow-up ileus. Comparison: August 07, 2017. 2 views of the abdomen today demonstrates nonspecific nonobstructed bowel gas pattern again with cholecystectomy clips and right lower quadrant ostomy. Previous suprapubic catheter removed. Solid organs and osseous structures unremarkable. Single PA chest again demonstrate normal heart, lungs, and bony thorax with right-sided Port-A-Cath. Impression: Nonacute nonobstructed abdomen. Normal 1 view chest. Comment: Preliminary interpretation was made by [facility]. No discrepancy.
[2017-08-10] MEDS: NON-FORMULARY ITEM PO SCH ×2 (00:08→09:57)
[2017-08-10] MEDS: LYRICA 75 MG CAP PO SCH ×2 (00:09→09:56)
[2017-08-10] MEDS: PROAMATINE 5 MG PO SCH ×2 (00:14→09:56)
[2017-08-10] MEDS: Sodium Chloride 0.9% 1000 ML 1,000 ML IV SCH (05:48)
[2017-08-10 06:11] LABS: BLOOD UREA NITROGEN 5 mg/dL (9-20); CHLORIDE 110 mEq/L (98-107); Calcium 7.8 mg/dL (8.5-10.1); Carbon Dioxide 27.5 mEq/L (21-32); Creatinine 1 0.88 mg/dl (0.55-1.30); EST GLOMERULAR FILTRATION RATE > 60 ML/MIN; Glucose 101 MG/DL (70-110); Potassium 3.8 mEq/L (3.5-5.1); SODIUM 144 mEq/L (136-145)
[2017-08-10] MEDS: Macrobid 100MG Capsule PO SCH (08:45)
[2017-08-10] MEDS: Paxil 20 MG PO SCH (09:56)
[2017-08-10] MEDS: Valium 5 MG PO SCH (09:56)
[2017-08-10] MEDS: PATIENT OWN MEDICATION PO SCH (09:57)
--- NOTE | 2017-08-10 10:09 | PCM.DCORD ---
- Discharge Discharge Date: 08/10/17 Disposition: Home, Self-Care Condition: Good Prescriptions: New Heparin Flush 500 units/5 ml [Heparin Lock Flush 100 Units/ml 5ml Syringe ] 500 units PORT FLUSH PRN PRN disp.syrin PRN Reason: Iv Port Flush Nitrofurantoin Macro 100 mg [Macrobid 100MG Capsule] 100 mg PO BIDWM # 12 capsule Continue Pregabalin [Lyrica] 75 mg PO BID Multivitamin [Multivitamins] 1 each PO DAILY Doxylamine Succinate [Unisom Sleep Aid] 25 mg PO HS Diazepam 5 mg [Valium 5 MG] 5 mg PO TID Ascorbic Acid [Vitamin C] 1,000 mg PO DAILY Cholecalciferol (Vitamin D3) [Vitamin D] 2,000 iu PO DAILY Promethazine HCl 25 mg [Phenergan 25 mg] 25 mg PO BIDPRN PRN PRN Reason: Nausea Midodrine HCl 10 mg PO TID Paroxetine HCl [Paxil] 40 mg PO DAILY Cyanocobalamin (Vitamin B-12) [Vitamin B12] 2,500 mcg PO DAILY Amitriptyline HCl 100 mg PO HS Sodium Chloride 1 gm PO BID Hydrocodone/APAP 10/325 mg [[place] 10/325 MG Tablet] 1 tab PO Q6H PRN PRN PRN Reason: Pain Discontinued Lipase/Protease/Amylase [Pancrelipase EC 20,000 Capsule] 1 cap PO TID Octreotide Acetate 100 mcg SQ BID Phenobarb/Hyoscy/Atropine/Scop [Belladonna-Phenobarb Elixir] 10 ml PO ACHS Loperamide HCl 2 mg [Imodium 2 mg] 4 cap PO TID MDD 24 mg Lipase/Protease/Amylase [Creon Dr 24,000 Units Capsule] 1 each PO TID Mirabegron [Myrbetriq] 50 mg PO QAM Follow up with: KHUSHBU REYNOSO [CONSULTING PHYSICIAN] - 08/18/17 9:00 am JOSE ZAMORANO [Primary Care Provider] - 08/12/17 10:15 am
[2017-08-10] MEDS: DILAUDID 1 MG/1ML PCA IV PRN (11:29)
[2017-08-10 11:32] VITALS: O2SAT 94
[2017-08-10 12:10] VITALS: BP 132/70; PULSE 80
--- NOTE | 2017-08-13 10:06 | DS ---
DISCHARGE DIAGNOSES: 1) ILEUS, NOW RESOLVED. 2) URINARY TRACT INFECTION. 3) ABDOMINAL PAIN. 4) CHRONIC KIDNEY DISEASE STAGE III. 5) SHORT BOWEL SYNDROME. 6) HISTORY OF ILEOSTOMY. 7) HISTORY OF SUPRAPUBIC CATHETER. DISCHARGE PHYSICAL EXAMINATION: VITALS: Temperature current 98.2F, temperature max 98.2F, heart rate 68 to 82, respiratory rate 14 to 16, blood pressure 109 to 128 over 57 to 67, weight on 08/08/2017 was 60.7 kg. Oxygen saturation 93 to 98% on room air. GENERAL: The patient is a pleasant talkative lady able to ambulate in the hallway. Her fiancee is with her and in no acute distress. She is talkative. CVS: She has a regular rate and rhythm. No murmurs, gallops or rubs are appreciated. CHEST: Clear to auscultation bilaterally. No crackles or wheezes. ABDOMEN: She has some mild left upper quadrant tenderness, normal bowel sounds. Ostomy bag in place. Suprapubic catheter in place. No guarding. No rigidity. EXTREMITIES: No clubbing, cyanosis or edema. SKIN: Warm, dry and intact. HOSPITAL COURSE: 1) ILEUS: She was first on clear liquids and this was advanced to a mechanical soft diet yesterday after she had repeat acute abdominal series that did not show any signs of continued ileus. The patient tolerated this well. She was able to eat breakfast. No nausea or vomiting. Normal output from her ostomy she reports. She will follow up closely with Dr. Haji on Friday and her philosophy specialist as scheduled. 2) URINARY TRACT INFECTION: Her urine culture grew Staphylococcus Epidermidis susceptible to Macrobid. She was started on this and given a prescription to finish a seven day course. 3) ABDOMINAL PAIN: This improved during her hospitalization. She had a Dilaudid SORTING LIVESTOCK WORKER during her hospitalization. She feels comfortable with going home and states she has home medication. I did continue to hold her anti-motility agents that were held during the hospitalization and she will follow up with Dr. Haji about those. 4) CHRONIC KIDNEY DISEASE STAGE III: Her creatinine is actually normal during her hospitalization at 0.88 and her electrolytes looked good. 5) SHORT BOWEL SYNDROME: Again she will follow up with her specialist. 6) ILEOSTOMY IS IN PLACE: Continue close follow up. DISCHARGE MEDICATIONS: Please see the discharge order. FOLLOW UP: She already has follow up scheduled with Dr. Haji and her specialist at . DISPOSITION: The patient was discharged to home in fair condition.
== END 2017-08-10 12:05 | disposition home or self-care (01) | DRG 389 ==
LOC: MED SURG 08:06 → OBSVTOIN 08-08 08:06
PROVIDERS: ADMIT Family Medicine; ATTEND Family Medicine
DX: K56.7 Ileus, unspecified (principal); N39.0 Urinary tract infection, site not specified; K91.2 Postsurgical malabsorption, not elsewhere classified; N18.3 Chronic kidney disease, stage 3 (moderate); K21.9 Gastro-esophageal reflux disease without esophagitis; Z43.2 Encounter for attention to ileostomy; R10.9 Unspecified abdominal pain; R74.8 Abnormal levels of other serum enzymes; Z93.59 Other cystostomy status; Z79.899 Other long term (current) drug therapy
CPT/HCPCS: 36415; 74022; 80048; 80053; 81000; 82150; 83690; 83735; 84132; 85027; 87077; 87086; 87186; 93268; 94760; G0378; J0696; J1170; J1642; J3475; J3480; A9270-GY

== ENCOUNTER 2017-08-22 13:48 | Observation (INO) | payer MEDICARE ==
[2017-08-22 15:05] LABS: Basophil (Absolute #) 0.07 (0-0.4); Eosinophil % 5.8 % (0.00-5.0); Eosinophil (Absolute #) 0.39 (0-0.5); Granulocyte Absolute (ANC) 2.94 (1.4-6.9); Granulocytes % 43.5 % (36.0-66.0); Hematocrit 39.3 % (35-47); Hemoglobin 12.3 gm/dl (12.0-16.0); Lymphocytes % 42.9 % (24.0-44.0); Mean Corpuscular Hgb Concent. 31.3 g/dl (32-36); Mean Platelet Volume 10.1 fl (6-9.5); Monocyte (Absolute #) 0.46 (0.0-1.3); Monocytes % 6.8 % (0.0-12.0); Platelet Count 263 K/mm3 (150-450); Red Blood Count 4.05 M/mm3 (4.1-5.4); Red Cell Distribution Width 13.4 % (11.5-14.0); White Blood Count 6.8 K/mm3 (4.0-10.5)
[2017-08-22 15:07] LABS: Mean Corpuscular Hemoglobin 30.3 pg (26-32)
[2017-08-22 15:30] LABS: ALBUMIN 4.2 g/dL (3.4-5.0); ANION GAP 17.6 MEQ/L (5-15); BILIRUBIN,TOTAL 0.3 mg/dL (0.2-1.0); Calcium 9.2 mg/dL (8.5-10.1); Carbon Dioxide 23.1 mEq/L (21-32); Creatinine 1 1.45 mg/dl (0.55-1.30); Potassium 3.7 mEq/L (3.5-5.1); Total Protein 8.5 gm/dL (6.4-8.2)
[2017-08-22] MEDS ORDERED: Lactated Ringers 1,000 ML IV SCH (15:30)
[2017-08-22] MEDS ORDERED: MORPHINE SULFATE 4 MG INJ IV PRN (15:41)
--- NOTE | 2017-08-22 15:56 | XRAY ---
Indication: Left upper quadrant pain. Comparison: August 09, 2017. 2 views of the abdomen remains nonacute and nonobstructed with cholecystectomy clips and right lower quadrant ostomy. Solid organs and osseous structures unremarkable. Single PA chest again demonstrates normal heart, lungs, and bony thorax with a right-sided Port-A-Cath. Impression: Stable negative abdomen and normal 1 view chest.
[2017-08-22] MEDS ORDERED: PHENERGAN 25 MG PO PRN (16:55)
[2017-08-22] MEDS ORDERED: Ativan 2 MG/1 ML VIAL IV PRN (16:58)
[2017-08-22] MEDS ORDERED: MEDICATION INTERVENTION MC PRN (17:02)
[2017-08-22] MEDS ORDERED: DILAUDID 1 MG/1ML PCA IV PRN (17:30)
--- NOTE | 2017-08-22 17:36 | PCM.HP ---
History of Present Illness - Chief Complaint Chief Complaint: Abd. pain History of Present Illness: is a 52 year old female well known to me with hx pancreatitis, colon resection with ileostomy and subsequent suprapubic catheter placement with chronic renal failure who was admitted directly for 2 d of abdominal pain. Pain is LUQ, epigastrum, and LLQ, 8-9/10 after 4mg morphine IV. She has had 2 other episodes of LUQ pain with admission over the past 2 months. Most recently in [facility] 2 weeks ago for IV fluids and bowel rest. Her XRays will show ileus and she recovers within a few day. Denies any fever. Had IV fluids yesterday per her usual but states her ostomy output just increased and she felt dry. She saw Dr. Hinson, Transplant Surgery, 2 d ago and he is arranging for her to have TPN infusions in the home. - Review of Systems Abdominal/Gastrointestinal: Abdominal Pain, Nausea, Other (increased ostomy output) Genitourinary Symptoms: Other (suprapubic catheter) Neurological: Dizziness (chronic) Hematologic/Lymphatic: Anemia All Other Systems: Reviewed and Negative Medications & Allergies Home Medications: Home Medication List Ascorbic Acid [Vitamin C] 1,000 mg PO DAILY 12/24/16 [History Confirmed 08/22/17 ] Cholecalciferol (Vitamin D3) [Vitamin D] 2,000 iu PO DAILY 12/24/16 [ History Confirmed 08/22/17] Diazepam 5 mg [Valium 5 MG] 5 mg PO TID 12/24/16 [History Confirmed ] Doxylamine Succinate [Unisom Sleep Aid] 25 mg PO HS 12/24/16 [History Confirmed 08/22/17] Multivitamin [Multivitamins] 1 each PO DAILY 12/24/16 [History Confirmed ] Pregabalin [Lyrica] 75 mg PO BID 12/24/16 [History Confirmed 08/22/17] Promethazine HCl 25 mg [Phenergan 25 mg] 25 mg PO BIDPRN PRN 01/07/17 [ History Confirmed 08/22/17] Midodrine HCl 5 mg PO TID 01/13/17 [History Confirmed 08/22/17] Paroxetine HCl [Paxil] 40 mg PO DAILY 01/20/17 [History Confirmed 08/22/17] Cyanocobalamin (Vitamin B-12) [Vitamin B12] 2,500 mcg PO DAILY 03/05/17 [ History Confirmed 08/22/17] Amitriptyline HCl 100 mg PO HS 07/04/17 [History Confirmed 08/22/17] Sodium Chloride 1 gm PO BID 07/23/17 [History Confirmed 08/22/17] Hydrocodone/APAP 10/325 mg [[place] 10/325 MG Tablet] 1 tab PO Q6H PRN PRN 08/05/17 [History Confirmed 08/22/17] Heparin Flush 500 units/5 ml [Heparin Lock Flush 100 Units/ml 5ml Syringe] 500 units PORT FLUSH PRN PRN disp.syrin 08/10/17 [Rx Confirmed 08/22/17] Lipase/Protease/Amylase [Concepcion Dr 24,000 Units Capsule] 24,000 udcap PO TID [History Confirmed 08/22/17] Allergies/Adverse Reactions: Allergies Allergy/AdvReac Type Severity Reaction Status Date / Time oxybutynin Allergy Severe Verified 08/22/17 14:43 ampicillin Allergy Mild Verified 08/22/17 14:43 duloxetine [From Cymbalta] Allergy Mild Verified 08/22/17 14:43 erythromycin base Allergy Mild Verified 08/22/17 14:43 [Erythromycin Base] - Past Medical History Past Medical History: Yes Neurological History: Migraines ENT History: No Pertinent History Cardiac History: No Pertinent History Respiratory History: No Pertinent History Endocrine Medical History: No Pertinent History Musculoskelatal History: No Pertinent History GI Medical History: Colitis, Hepatitis, Pancreatitis, Other History: Renal Disease, Other Pyscho-Social History: Anxiety, Depression Reproductive Disorders: No Pertinent History Comment: short gut syndrome,chronic diarrhea,small bowel bacterial overgrowth. hx bowel obstruction 04/03, 06/23/17 and others stated in the past. stage 3 kidney disease. frequent pancreatitis. hx hepatitis - Female History Are you now?: No - Past Surgical History Past Surgical History: Yes Neuro Surgical History: No Pertinent History Cardiac History: No Pertinent History Respiratory Surgery: No Pertinent History GI Surgical History: Cholecystectomy, Colon Resection, Other Genitourinary Surgical Hx: Other Musculskeletal Surgical Hx: No Pertinent History Female Surgical History: Hysterectomy Other Surgical History: 100cm small bowel removal and resection and colon and large bowel removed, bladder surgen with suprapubic catheter placed. stent in rt ureter ,bladder revision with larger stent. pt states she is scheduled for a liver biopsy with Dr. Castle on 06/16/17 - Social History Smoking Status: Current every day smoker How long have you smoked: 20 years Exposure to second hand smoke: Yes Alcohol: None Drug Use: none - Physical Exam Vital Signs: Vital Signs - 24 hr Temp Pulse Resp BP Pulse Ox 08/22/17 16:06 97.6 F 97 H 20 142/90 98 08/22/17 15:00 97.4 F 98 H 20 142/94 98 08/22/17 14:37 97.4 F 98 H 20 142/94 98 General Appearance: mild distress, alert, anxiety Neurologic Exam: oriented x 3, cooperative Eye Exam: eyes nml inspection Ears, Nose, Throat Exam: moist mucous membranes Respiratory Exam: normal breath sounds, lungs clear, No crackles/rales, No rhonchi, No wheezing Cardiovascular Exam: regular rate/rhythm, normal heart sounds, No murmur Gastrointestinal/Abdomen Exam: soft, normal bowel sounds, tenderness (epigastrum , LUQ, LLQ), guarding, other (suprapubic catheter in place. Ostomy in RLQ), No distention, No mass, No rebound Back Exam: normal inspection, No rash Extremity Exam: No pedal edema, No swelling Skin Exam: normal color, warm, dry, No rash Results - Labs Lab/Micro Results: Lab Results-Last 24 Hours 08/22/17 08/22/17 Range/Units 14:50 14:50 WBC 6.8 (4.0-10.5) K/mm3 RBC 4.05 L (4.1-5.4) M/mm3 Hgb 12.3 (12.0-16.0) gm/dl Hct 39.3 (35-47) % MCV 97.0 (78-100) fl MCH 30.3 (26-32) pg MCHC 31.3 L (32-36) g/dl RDW 13.4 (11.5-14.0) % Plt Count 263 (150-450) K/mm3 MPV 10.1 H (6-9.5) fl Gran % 43.5 (36.0-66.0) % Lymphocytes % 42.9 (24.0-44.0) % Monocytes % 6.8 (0.0-12.0) % Eosinophils % 5.8 H (0.00-5.0) % Basophils % 1.0 (0.0-0.4) % Basophils # 0.07 (0-0.4) Sodium 138 (136-145) mEq/L Potassium 3.7 (3.5-5.1) mEq/L Chloride 101 (98-107) mEq/L Carbon Dioxide 23.1 (21-32) mEq/L Anion Gap 17.6 H (5-15) MEQ/L BUN 16 (9-20) mg/dL Creatinine 1.45 H (0.55-1.30) mg/dl Estimated GFR 40 ML/MIN Glucose 119 H (70-110) MG/DL Calcium 9.2 (8.5-10.1) mg/dL Total Bilirubin 0.30 (0.2-1.0) mg/dL AST 78 H (15-37) U/L ALT 175 H (12-78) U/L Alkaline Phosphatase 254 H (46-116) U/L Serum Total Protein 8.5 H (6.4-8.2) gm/dL Albumin 4.2 (3.4-5.0) g/dL Amylase 140 H (25-115) U/L Lipase 580 H (73-393) U/L - Radiology Impressions Radiology Exams & Impressions: Radiology Procedures Category Date Time Status OBSTR/ACUTE ABDOMEN SERIES Routine Exams 08/22/17 15:30 Completed Assessment/Plan (1) Abdominal pain Current Visit: No Status: Acute Qualifiers: Assessment & Plan: await XR and lab results. May go ahead with CT abd/pelvis tonight, she has not had one for some time. Discussed that we do not want to over radiate her but if there is something new in the abdomen we need to be aware. On CLD. Holding all the medicines we can for now. Code(s): R10.9 - UNSPECIFIED ABDOMINAL PAIN (2) Chronic kidney disease (CKD) stage G3a/A1, moderately decreased glomerular filtration rate (GFR) between 45-59 mL/min/1.73 square meter and albuminuria creatinine ratio less than 30 mg/g Current Visit: No Status: Chronic Assessment & Plan: labs and fluids. Dr. Orourke aware. Code(s): N18.3 - CHRONIC KIDNEY DISEASE, STAGE 3 (MODERATE) (3) Elevated liver enzymes Current Visit: No Status: Chronic Code(s): R74.8 - ABNORMAL LEVELS OF OTHER SERUM ENZYMES (4) Ileostomy care Current Visit: No Status: Chronic Code(s): Z43.2 - ENCOUNTER FOR ATTENTION TO ILEOSTOMY (5) Short bowel syndrome Current Visit: No Status: Chronic Code(s): K91.2 - POSTSURGICAL MALABSORPTION, NOT ELSEWHERE CLASSIFIED
[2017-08-22 18:09] LABS: Appearance CLOUDY (CLEAR); Leukocyte Esterase 2+ (NEGATIVE); Nitrite NEGATIVE (NEGATIVE); Specific Gravity 1.025 (1.005-1.025)
[2017-08-22 18:10] LABS: Bilirubin NEGATIVE (NEGATIVE); Blood 250 Ery/ul (0-5); Glucose NEGATIVE (NEGATIVE); Ketones SMALL (NEGATIVE); Protein,Urine Dip 100 (Negative); Urobilinogen NORMAL mg/dL (0-1)
[2017-08-22 18:18] LABS: Bacteria MODERATE /HPF (NEGATIVE); Epithelial Cells FEW /HPF (FEW); WBC 50-100 /HPF (0-5)
[2017-08-22 18:19] LABS: Yeast MODERATE /HPF (NEGATIVE)
[2017-08-22] MEDS: LYRICA 75 MG CAP PO SCH (21:42)
[2017-08-22] MEDS: SODIUM CHLORIDE 1 GM PO SCH (21:43)
[2017-08-22] MEDS: [UNRECOGNIZED DRUG - OTHER] PO SCH (21:43)
[2017-08-22] MEDS ORDERED: [UNRECOGNIZED DRUG - OTHER] PO SCH (22:00)
[2017-08-22] MEDS ORDERED: SODIUM CHLORIDE 1 GM PO SCH (22:00)
[2017-08-22] MEDS ORDERED: DOXYLAMINE SUCCINATE 25 MG PO SCH (22:00)
[2017-08-22] MEDS ORDERED: AMITRIPTYLINE HCL 100 MG PO SCH (22:00)
[2017-08-23] MEDS: Lactated Ringers 1,000 ML IV SCH ×3 (01:11→17:40)
[2017-08-23] MEDS: LYRICA 75 MG CAP PO SCH ×2 (09:39→22:50)
[2017-08-23] MEDS: Paxil 20 MG PO SCH (09:39)
[2017-08-23] MEDS ORDERED: NON-FORMULARY ITEM (Paroxetine Hcl [Paxil] 40 MG) PO SCH (10:00)
[2017-08-23 15:59] LABS: ALBUMIN 3.5 g/dL (3.4-5.0); ALKALINE PHOSPHATASE 196 U/L (46-116); AMYLASE 104 U/L (25-115); ANION GAP 8.4 MEQ/L (5-15); BLOOD UREA NITROGEN 8 mg/dL (9-20); CHLORIDE 104 mEq/L (98-107); Calcium 8.5 mg/dL (8.5-10.1); Carbon Dioxide 30.9 mEq/L (21-32); Creatinine 1 0.82 mg/dl (0.55-1.30); EST GLOMERULAR FILTRATION RATE > 60 ML/MIN; Glucose 110 MG/DL (70-110); LIPASE 338 U/L (73-393); SGOT/AST 44 U/L (15-37); SGPT/ALT 111 U/L (12-78); SODIUM 139 mEq/L (136-145); Total Protein 6.9 gm/dL (6.4-8.2)
[2017-08-23 16:18] LABS: BASOPHIL % 0.5 % (0.0-0.4); Basophil (Absolute #) 0.03 (0-0.4); Eosinophil % 3.7 % (0.00-5.0); Eosinophil (Absolute #) 0.23 (0-0.5); Granulocyte Absolute (ANC) 3.38 (1.4-6.9); Granulocytes % 54.4 % (36.0-66.0); Hematocrit 31.3 % (35-47); Hemoglobin 9.9 gm/dl (12.0-16.0); Lymphocyte (Absolute #) 2.19 (1.0-4.6); Lymphocytes % 35.3 % (24.0-44.0); Mean Cell Volume 98.1 fl (78-100); Mean Corpuscular Hgb Concent. 31.6 g/dl (32-36); Mean Platelet Volume 10.3 fl (6-9.5); Monocyte (Absolute #) 0.38 (0.0-1.3); Monocytes % 6.1 % (0.0-12.0); Platelet Count 214 K/mm3 (150-450); Red Blood Count 3.19 M/mm3 (4.1-5.4); Red Cell Distribution Width 13.1 % (11.5-14.0); White Blood Count 6.2 K/mm3 (4.0-10.5)
--- NOTE | 2017-08-23 16:20 | PCM.NOTE ---
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 She is sitting up in the bed and has been walking in the [place] a bit. Not a lot of output from her catheter today but lots of ostomy output, although she thinks that is thickening up. - Review of Systems Constitutional: No Fever Abdominal/Gastrointestinal: Abdominal Pain Objective Exam General Appearance: no apparent distress, alert Neurologic Exam: oriented x 3, cooperative Skin Exam: normal color, warm, dry, No rash Respiratory Exam: normal breath sounds, lungs clear, wheezing (faint scattered wheeze), No crackles/rales, No rhonchi Cardiovascular Exam: regular rate/rhythm, normal heart sounds, No murmur OBJECTIVE DATA Vital Signs: Vital Signs - 24 hr Temp Pulse Resp BP Pulse Ox 08/23/17 16:06 97.5 F 86 18 108/70 97 08/23/17 12:30 97.7 F 88 18 110/54 96 08/23/17 07:19 97.4 F 91 H 18 109/64 97 08/23/17 06:00 99 08/23/17 04:00 97.8 F 93 H 15 119/74 100 08/23/17 03:15 87 16 97 08/23/17 02:00 90 L 08/23/17 00:01 98.1 F 83 16 108/66 93 L 08/22/17 22:00 97 08/22/17 20:00 98.5 F 92 H 16 112/69 97 Oxygen-Last 24 hours O2 Percentage 2 Liters = 28% Pain Assessment - Last Documented Pain Intensity 6 Pain Scale Used 0-10 Pain Scale Intake and Output: Intake & Output 08/21/17 08/22/17 08/23/17 08/24/17 11:59 11:59 11:59 11:59 Intake Total 4097 240 Output Total 2175 1600 Balance 1922 -1360 Weight 62.3 kg Lab Results: Lab Results-Last 24 Hours 08/22/17 08/22/17 Range/Units 15:25 17:34 Prealbumin 44.4 H (18.0-35.7) mg/dL Ur Collection Type CLEAN CATCH Urine Color DARK YELLOW (YELLOW) Urine Appearance CLOUDY (CLEAR) Urine pH 5.0 (5-6) Ur Specific [place] 1.025 (1.005-1.025) Urine Protein 100 (Negative) Urine Ketones SMALL (NEGATIVE) Urine Blood 250 (0-5) Gregg/ul Urine Nitrite NEGATIVE (NEGATIVE) Urine Bilirubin NEGATIVE (NEGATIVE) Urine Urobilinogen NORMAL (0-1) mg/dL Ur Leukocyte Esterase 2+ (NEGATIVE) Urine Microscopic RBC 50-100 (0-2) /HPF Urine Microscopic WBC 50-100 (0-5) /HPF Ur Epithelial Cells FEW (FEW) /HPF Urine Bacteria MODERATE (NEGATIVE) /HPF Urine Yeast MODERATE (NEGATIVE) /HPF Urine Glucose NEGATIVE (NEGATIVE) mg/dL Specimen Received 08/22/17 9475 Radiology Exams: Radiology Procedures Category Date Time Status OBSTR/ACUTE ABDOMEN SERIES Routine Exams 08/22/17 15:30 Completed Assessment/Plan (1) Pancreatitis Current Visit: Yes Status: Acute Qualifiers: Chronicity: acute Pancreatitis type: unspecified pancreatitis type Acute pancreatitis complication: no infection or necrosis Qualified Code(s): K85.90 - Acute pancreatitis without necrosis or infection, unspecified Assessment & Plan: Pain is getting better, she acts much much better today. Is asking for mashed potatoes. Will try to start them tomorrow. Code(s): K85.90 - ACUTE PANCREATITIS WITHOUT NECROSIS OR INFECTION, UNSP (2) Abdominal pain Current Visit: No Status: Acute Qualifiers: Abdominal location: epigastric Qualified Code(s): R10.13 - Epigastric pain Code(s): R10.9 - UNSPECIFIED ABDOMINAL PAIN (3) Chronic kidney disease (CKD) stage G3a/A1, moderately decreased glomerular filtration rate (GFR) between 45-59 mL/min/1.73 square meter and albuminuria creatinine ratio less than 30 mg/g Current Visit: No Status: Chronic Assessment & Plan: rechecking labs Code(s): N18.3 - CHRONIC KIDNEY DISEASE, STAGE 3 (MODERATE) (4) Elevated liver enzymes Current Visit: No Status: Chronic Code(s): R74.8 - ABNORMAL LEVELS OF OTHER SERUM ENZYMES (5) Ileostomy care Current Visit: No Status: Chronic Assessment & Plan: Go ahead and start octreotide and belldonna today at home doses - pt brings from home. Code(s): Z43.2 - ENCOUNTER FOR ATTENTION TO ILEOSTOMY (6) Short bowel syndrome Current Visit: No Status: Chronic Code(s): K91.2 - POSTSURGICAL MALABSORPTION, NOT ELSEWHERE CLASSIFIED
[2017-08-23] MEDS ORDERED: Valium 5 MG PO SCH (16:30)
[2017-08-23] MEDS: [UNRECOGNIZED DRUG - OTHER] PO SCH ×2 (17:39→22:51)
[2017-08-23] MEDS: SODIUM CHLORIDE 1 GM PO SCH ×2 (17:39→22:51)
[2017-08-23] MEDS: PROAMATINE 5 MG PO SCH ×2 (17:40→22:50)
[2017-08-23] MEDS: PANCRELIPASE DR 5,000 UNIT CAP PO SCH (17:40)
[2017-08-23] MEDS: PATIENT OWN MEDICATION PO SCH ×2 (17:41→22:55)
[2017-08-23] MEDS: Valium 5 MG PO SCH (17:43)
[2017-08-23] MEDS ORDERED: PROTEASE PO SCH (22:00)
[2017-08-23] MEDS ORDERED: LIPASE PO SCH (22:00)
[2017-08-23] MEDS ORDERED: [UNRECOGNIZED DRUG - OTHER] PO SCH (22:00)
[2017-08-23] MEDS ORDERED: AMYLASE PO SCH (22:00)
[2017-08-23] MEDS ORDERED: MIDODRINE HCL 5 MG PO SCH (22:00)
[2017-08-23] MEDS: SANDOSTATIN 50MCG/ML SQ SCH (22:52)
[2017-08-24] MEDS: Lactated Ringers 1,000 ML IV SCH ×2 (01:58→09:54)
[2017-08-24] MEDS: Valium 5 MG PO SCH ×2 (05:22→11:31)
[2017-08-24 05:46] LABS: BASOPHIL % 0.4 % (0.0-0.4); Basophil (Absolute #) 0.02 (0-0.4); Eosinophil (Absolute #) 0.15 (0-0.5); Granulocyte Absolute (ANC) 3.05 (1.4-6.9); Granulocytes % 61.9 % (36.0-66.0); Hematocrit 28.5 % (35-47); Hemoglobin 8.8 gm/dl (12.0-16.0); Lymphocytes % 28.4 % (24.0-44.0); Mean Cell Volume 99.7 fl (78-100); Mean Corpuscular Hgb Concent. 30.9 g/dl (32-36); Mean Platelet Volume 9.8 fl (6-9.5); Monocyte (Absolute #) 0.31 (0.0-1.3); Monocytes % 6.3 % (0.0-12.0); Platelet Count 196 K/mm3 (150-450); Red Blood Count 2.86 M/mm3 (4.1-5.4); Red Cell Distribution Width 12.9 % (11.5-14.0); White Blood Count 4.9 K/mm3 (4.0-10.5)
[2017-08-24 05:51] LABS: Mean Corpuscular Hemoglobin 30.7 pg (26-32)
[2017-08-24 06:26] LABS: ALBUMIN 2.9 g/dL (3.4-5.0); ALKALINE PHOSPHATASE 166 U/L (46-116); ANION GAP 8.9 MEQ/L (5-15); BLOOD UREA NITROGEN 5 mg/dL (9-20); CHLORIDE 103 mEq/L (98-107); Calcium 8.1 mg/dL (8.5-10.1); Carbon Dioxide 30.6 mEq/L (21-32); EST GLOMERULAR FILTRATION RATE > 60 ML/MIN; Glucose 117 MG/DL (70-110); LIPASE 214 U/L (73-393); Potassium 4.1 mEq/L (3.5-5.1); SGOT/AST 50 U/L (15-37); SGPT/ALT 91 U/L (12-78); SODIUM 138 mEq/L (136-145); Total Protein 5.8 gm/dL (6.4-8.2)
[2017-08-24] MEDS: Paxil 20 MG PO SCH (08:30)
[2017-08-24] MEDS: PANCRELIPASE DR 5,000 UNIT CAP PO SCH ×3 (08:31→16:10)
[2017-08-24] MEDS: LYRICA 75 MG CAP PO SCH (08:31)
[2017-08-24] MEDS: PROAMATINE 5 MG PO SCH ×2 (08:31→11:32)
[2017-08-24] MEDS: [UNRECOGNIZED DRUG - OTHER] PO SCH (08:32)
[2017-08-24] MEDS: SODIUM CHLORIDE 1 GM PO SCH (08:32)
[2017-08-24] MEDS: SANDOSTATIN 50MCG/ML SQ SCH (08:34)
[2017-08-24] MEDS: PATIENT OWN MEDICATION PO SCH ×3 (08:39→16:14)
[2017-08-24] MEDS ORDERED: ENOXAPARIN SODIUM SQ SCH (10:00)
--- NOTE | 2017-08-24 15:05 | PCM.DS ---
Discharge Summary Date of Admission: 08/22/17 14:17 Admitting Physician: JOSE ZAMORANO Consults: Consults on Case 08/22/17 14:33 Consult Nephrology ROUTINE Primary Care Provider: JOSE ZAMORANO Allergies Allergies oxybutynin Allergy (Severe, Verified 08/22/17 14:43) pharyngeal swelling ampicillin Allergy (Mild, Verified 08/22/17 14:43) hives duloxetine [From Cymbalta] Allergy (Mild, Verified 08/22/17 14:43) nausea erythromycin base [Erythromycin Base] Allergy (Mild, Verified 08/22/17 14:43) [facility] Summary - Hospital Course Hospital Course: Pt admitted from home directly with c/o abdominal pain; found to have elevated lipase and amylase. Her pain improved within [address] scan was not done. IV fluids given. Pt's labs are quite good for her, with BUN 5, Cr 0.9 , lipase 214, K+ 4.1. Will advance diet to bland for supper and if she tolerates that discharge her to home. 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 - Vitals & Intake/Output Vital Signs: Vital Signs Temperature 97.7 F 08/24/17 12:00 Pulse Rate 77 08/24/17 12:00 Respiratory Rate 22 08/24/17 12:00 Blood Pressure 114/64 08/24/17 12:00 O2 Sat by Pulse Oximetry 94 L 08/24/17 12:00 Oxygen-Last Documented O2 Percentage 2 Liters = 28% Intake & Output: Intake & Output 08/22/17 08/23/17 08/24/17 08/25/17 11:59 11:59 11:59 11:59 Intake Total 4097 2836 920 Output Total 2175 3100 Balance 1922 -264 920 Weight 62.3 kg - Lab Result Diagrams: 08/24/17 05:20 08/24/17 05:20 Lab Results-Last 24 Hrs: Lab Results-Last 24 Hours 08/23/17 08/23/17 08/24/17 Range/Units 15:10 15:10 05:20 WBC 6.2 4.9 (4.0-10.5) K/mm3 RBC 3.19 L 2.86 L (4.1-5.4) M/mm3 Hgb 9.9 L 8.8 L (12.0-16.0) gm/dl Hct 31.3 L 28.5 L (35-47) % MCV 98.1 99.7 (78-100) fl MCH 31.0 30.7 (26-32) pg MCHC 31.6 L 30.9 L (32-36) g/dl RDW 13.1 12.9 (11.5-14.0) % Plt Count 214 196 (150-450) K/mm3 MPV 10.3 H 9.8 H (6-9.5) fl Gran % 54.4 61.9 (36.0-66.0) % Lymphocytes % 35.3 28.4 (24.0-44.0) % Monocytes % 6.1 6.3 (0.0-12.0) % Eosinophils % 3.7 3.0 (0.00-5.0) % Basophils % 0.5 0.4 (0.0-0.4) % Basophils # 0.03 0.02 (0-0.4) Sodium 139 (136-145) mEq/L Potassium 4.0 (3.5-5.1) mEq/L Chloride 104 (98-107) mEq/L Carbon Dioxide 30.9 (21-32) mEq/L Anion Gap 8.4 (5-15) MEQ/L BUN 8 L (9-20) mg/dL Creatinine 0.82 (0.55-1.30) mg/dl Estimated GFR > 60 ML/MIN Glucose 110 (70-110) MG/DL Calcium 8.5 (8.5-10.1) mg/dL Total Bilirubin 0.20 (0.2-1.0) mg/dL AST 44 H (15-37) U/L ALT 111 H (12-78) U/L Alkaline Phosphatase 196 H (46-116) U/L Serum Total Protein 6.9 (6.4-8.2) gm/dL Albumin 3.5 (3.4-5.0) g/dL Amylase 104 (25-115) U/L Lipase 338 (73-393) U/L 08/24/17 Range/Units 05:20 WBC (4.0-10.5) K/mm3 RBC (4.1-5.4) M/mm3 Hgb (12.0-16.0) gm/dl Hct (35-47) % MCV (78-100) fl MCH (26-32) pg MCHC (32-36) g/dl RDW (11.5-14.0) % Plt Count (150-450) K/mm3 MPV (6-9.5) fl Gran % (36.0-66.0) % Lymphocytes % (24.0-44.0) % Monocytes % (0.0-12.0) % Eosinophils % (0.00-5.0) % Basophils % (0.0-0.4) % Basophils # (0-0.4) Sodium 138 (136-145) mEq/L Potassium 4.1 (3.5-5.1) mEq/L Chloride 103 (98-107) mEq/L Carbon Dioxide 30.6 (21-32) mEq/L Anion Gap 8.9 (5-15) MEQ/L BUN 5 L (9-20) mg/dL Creatinine 0.90 (0.55-1.30) mg/dl Estimated GFR > 60 ML/MIN Glucose 117 H (70-110) MG/DL Calcium 8.1 L (8.5-10.1) mg/dL Total Bilirubin 0.20 (0.2-1.0) mg/dL AST 50 H (15-37) U/L ALT 91 H (12-78) U/L Alkaline Phosphatase 166 H (46-116) U/L Serum Total Protein 5.8 L (6.4-8.2) gm/dL Albumin 2.9 L (3.4-5.0) g/dL Amylase (25-115) U/L Lipase 214 (73-393) U/L - Radiology Exams Ordered Rad Exams-Entire Visit: Radiology Procedures Category Date Time Status OBSTR/ACUTE ABDOMEN SERIES Routine Exams 08/22/17 15:30 Completed - Procedures and Test Procedures and Tests throughout Hospitalization: Therapy Orders & Screens 08/23/17 03:15 Oxygen NASAL CANNULA 2 lpm Comment: Diagnosis: Abd. pain Discharge Exam General Appearance: mild distress (with bladder spasm; otherwise in NAD), alert Neurologic Exam: oriented x 3, cooperative Skin Exam: normal color, warm, dry, No rash Respiratory Exam: normal breath sounds, lungs clear, wheezing (expiratory), No crackles/rales, No rhonchi Cardiovascular Exam: regular rate/rhythm, normal heart sounds, No murmur Gastrointestinal/Abdomen Exam: soft, normal bowel sounds (hypoactive but present ), tenderness (generalized, worse in epigastrum), No distention, No mass Extremity Exam: pedal edema (trace LE edema bilat) Back Exam: normal inspection, No rash Final Diagnosis/Problem List - Final Discharge Diagnosis/Problem (1) Pancreatitis Current Visit: Yes Status: Acute Assessment & Plan: Labs are wnl, she still needs to continue bland diet and plenty of fluids. Going to have IV fluids tomorrow. (2) Abdominal pain Current Visit: No Status: Chronic (3) Chronic kidney disease (CKD) stage G3a/A1, moderately decreased glomerular filtration rate (GFR) between 45-59 mL/min/1.73 square meter and albuminuria creatinine ratio less than 30 mg/g Current Visit: No Status: Chronic Assessment & Plan: Very good with IV hydration. (4) Elevated liver enzymes Current Visit: No Status: Chronic (5) Ileostomy care Current Visit: No Status: Chronic (6) Short bowel syndrome Current Visit: No Status: Chronic Assessment & Plan: She is supposed to start getting IV fluids daily per pt's report from Dr. Hinson. - Discharge Disposition: Home, Self-Care Condition: Stable Prescriptions: Continue Pregabalin [Lyrica] 75 mg PO BID Multivitamin [Multivitamins] 1 each PO DAILY Doxylamine Succinate [Unisom Sleep Aid] 25 mg PO HS Diazepam 5 mg [Valium 5 MG] 5 mg PO TID Ascorbic Acid [Vitamin C] 1,000 mg PO DAILY Cholecalciferol (Vitamin D3) [Vitamin D] 2,000 iu PO DAILY Promethazine HCl 25 mg [Phenergan 25 mg] 25 mg PO BIDPRN PRN PRN Reason: Nausea Midodrine HCl 5 mg PO TID Paroxetine HCl [Paxil] 40 mg PO DAILY Cyanocobalamin (Vitamin B-12) [Vitamin B12] 2,500 mcg PO DAILY Amitriptyline HCl 100 mg PO HS Sodium Chloride 1 gm PO BID Hydrocodone/APAP 10/325 mg [[place] 10/325 MG Tablet] 1 tab PO Q6H PRN PRN PRN Reason: Pain Heparin Flush 500 units/5 ml [Heparin Lock Flush 100 Units/ml 5ml Syringe ] 500 units PORT FLUSH PRN PRN disp.syrin PRN Reason: Iv Port Flush Lipase/Protease/Amylase [Concepcion Teran 24,000 Units Capsule] 24,000 udcap PO TID Follow up with: JOSE ZAMORANO [Primary Care Provider] - 1 Week
[2017-08-24] MEDS ORDERED: OXYCODONE-ACETAMINOPHEN 10-325 PO PRN (15:10)
[2017-08-24] MEDS ORDERED: Ventolin Hfa MDI IH PRN (15:41)
[2017-08-24 16:15] VITALS: BP 128/73; PULSE 74; O2SAT 96
== END 2017-08-24 17:10 | disposition home or self-care (01) ==
LOC: MED SURG 14:17
PROVIDERS: ADMIT Family Medicine; ATTEND Family Medicine
DX: N18.3 Chronic kidney disease, stage 3 (moderate) (principal); R74.8 Abnormal levels of other serum enzymes; Z43.2 Encounter for attention to ileostomy; F41.8 Other specified anxiety disorders; K91.2 Postsurgical malabsorption, not elsewhere classified; Z79.899 Other long term (current) drug therapy; Z72.0 Tobacco use
CPT/HCPCS: 36415; 74022; 80053; 81000; 82150; 83690; 84134; 85025; 93268; 94760; G0378; J1170; J1650; J2270; J2354; A9270-GY

== ENCOUNTER 2017-09-19 10:33 | Emergency (ER) | payer MEDICARE ==
[2017-09-19] MEDS ORDERED: TYLENOL 325 MG PO ONE (11:03)
[2017-09-19] MEDS ORDERED: Lactated Ringers 1,000 ML IV ONE ×2 (11:04→11:21)
[2017-09-19] MEDS ORDERED: DUONEB 0.5-3 MG/3 ml Neb IH ONE ×2 (11:04→11:22)
[2017-09-19] MEDS ORDERED: ATARAX 25 MG PO ONE (11:05)
--- NOTE | 2017-09-19 11:08 | ERPHSYRPT ---
- History of Present Illness Time Seen by Provider: 09/19/17 10:58 Source: patient, family Physician History: CC: cough Hx: 52 y/o patient of Dr Haji. She has hx of short gut syndrome and get every other day IVF infusions. Yesterday she had coughing. CXR and labs. Given neb and was sent home with MDI prescription. Unable to sleep. Aches all over. Subjective fever. General weakness. Some headaches. Coughing is worse. Severity: moderate Allergies/Adverse Reactions: oxybutynin Allergy (Severe, Verified 09/19/17 11:06) pharyngeal swelling ampicillin Allergy (Mild, Verified 09/19/17 11:06) hives duloxetine [From Cymbalta] Allergy (Mild, Verified 09/19/17 11:06) nausea erythromycin base [Erythromycin Base] Allergy (Mild, Verified 09/19/17 11:06) Hives Home Medications: Ascorbic Acid [Vitamin C] 1,000 mg PO DAILY 12/24/16 [History] Cholecalciferol (Vitamin D3) [Vitamin D] 2,000 iu PO DAILY 12/24/16 [ History] Diazepam 5 mg [Valium 5 MG] 5 mg PO TID 12/24/16 [History] Doxylamine Succinate [Unisom Sleep Aid] 25 mg PO HS 12/24/16 [History] Multivitamin [Multivitamins] 1 each PO DAILY 12/24/16 [History] Pregabalin [Lyrica] 75 mg PO BID 12/24/16 [History] Promethazine HCl 25 mg [Phenergan 25 mg] 25 mg PO BIDPRN PRN 01/07/17 [ History] Midodrine HCl 5 mg PO TID 01/13/17 [History] Paroxetine HCl [Paxil] 40 mg PO DAILY 01/20/17 [History] Cyanocobalamin (Vitamin B-12) [Vitamin B12] 2,500 mcg PO DAILY 03/05/17 [History ] Amitriptyline HCl 100 mg PO HS 07/04/17 [History] Sodium Chloride 1 gm PO BID 07/23/17 [History] Hydrocodone/APAP 10/325 mg [[place] 10/325 MG Tablet] 1 tab PO Q6H PRN PRN 08/05/17 [History] Lipase/Protease/Amylase [[place]ce[place] Teran 24,000 Units Capsule] 24,000 udcap PO TID [History] Cephalexin Mh 500 mg [Keflex 500 mg] 500 mg PO BID 09/05/17 [History] Hx Tetanus, Diphtheria Vaccination/Date Given: Yes (up to date) Hx Influenza Vaccination/Date Given: Yes Hx Pneumococcal Vaccination/Date Given: Yes - Review of Systems Constitutional: Fever, Chills, Fatigue, Malaise, Weakness Eyes: No Symptoms Ears, Nose, & Throat: Nose Congestion Respiratory: Cough Cardiac: No Chest Pain Abdominal/Gastrointestinal: Abdominal Pain Genitourinary Symptoms: No Dysuria Skin: No Rash Neurological: Headache All Other Systems: Reviewed and Negative - Past Medical History Pertinent Past Medical History: Yes Neurological History: Migraines ENT History: No Pertinent History Cardiac History: No Pertinent History Respiratory History: No Pertinent History Endocrine Medical History: No Pertinent History Musculoskeletal History: No Pertinent History GI Medical History: Colitis, Hepatitis, Pancreatitis, Other History: Renal Disease, Other Psycho-Social History: Anxiety, Depression Female Reproductive Disorders: No Pertinent History Other Medical History: short gut syndrome,chronic diarrhea,small bowel bacterial overgrowth. hx bowel obstruction 04/03, 06/23/17 and others stated in the past. stage 3 kidney disease. frequent pancreatitis. hx hepatitis - Past Surgical History Past Surgical History: Yes Neuro Surgical History: No Pertinent History Cardiac: No Pertinent History Respiratory: No Pertinent History Gastrointestinal: Cholecystectomy, Colon Resection, Other Genitourinary: Other Musculoskeletal: No Pertinent History Female Surgical History: Hysterectomy Other Surgical History: 100cm small bowel removal and resection and colon and large bowel removed, bladder surgen with suprapubic catheter placed. stent in rt ureter ,bladder revision with larger stent. pt states she is scheduled for a liver biopsy with Dr. Castle on 06/16/17 - Social History Smoking Status: Current every day smoker How long have you smoked: 20 years Exposure to second hand smoke: Yes Drug Use: none Patient Lives Alone: No - Nursing Vital Signs Nursing Vital Signs: Initial Vital Signs Temperature 98.8 F 09/19/17 10:56 Pulse Rate 92 H 09/19/17 10:56 Respiratory Rate 20 09/19/17 10:56 Blood Pressure 119/89 09/19/17 10:56 O2 Sat by Pulse Oximetry 100 09/19/17 10:56 Pain Scale Pain Intensity 9 - Physical Exam General Appearance: alert Eye Exam: PERRL/EOMI Ears, Nose, Throat Exam: normal ENT inspection, dry mucous membranes Neck Exam: normal inspection, non-tender, supple, No meningismus Respiratory Exam: diminished breath sounds Cardiovascular Exam: regular rate/rhythm Gastrointestinal/Abdomen Exam: soft, tenderness (diffuse discomfort) Back Exam: normal inspection Extremity Exam: normal inspection, normal range of motion, No calf tenderness, No pedal edema Neurologic Exam: alert, oriented x 3, cooperative, agricultural services director II-XII nml as tested, sensation nml, No motor deficits Skin Exam: warm, dry, No rash - Course Nursing assessment & vital signs reviewed: Yes - Radiology Exams cxr X-ray Interpretation: Teleradiologist Report, Negative Ordered Tests: Active Orders 24 hr Category Date Time Status Clean Catch Urine Specimen STAT Care 09/19/17 11:08 Active IV Insertion STAT Care 09/19/17 11:03 Active CHEST 2 VIEWS (PA AND LAT) Stat Exams 09/19/17 11:03 Completed CBC W DIFF Stat Lab 09/19/17 11:50 Completed CMP Stat Lab 09/19/17 11:50 Completed CULTURE,URINE Stat Lab 09/19/17 12:45 Received Lactic Acid Stat Lab 09/19/17 11:50 Completed Lactic Acid Stat Lab 09/19/17 13:54 Ordered MAGNESIUM Stat Lab 09/19/17 11:50 Completed UA W/ MICROSCOPIC Stat Lab 09/19/17 12:45 Completed Respiratory Nebulizer STAT RT 09/19/17 11:04 Completed Medication Summary Discontinued Medications Generic Name Dose Route Start Last Admin Trade Name Kristy PRN Reason Stop Dose Admin Acetaminophen 650 mg 09/19/17 11:03 09/19/17 11:22 Tylenol 325 Mg PO 09/19/17 11:04 650 mg STAT ONE Administration Acetaminophen Confirm 09/19/17 11:21 Tylenol 325 Mg Administered 09/19/17 11:22 Dose 650 mg .ROUTE .STK-MED ONE Albuterol/Ipratropium 3 ml 09/19/17 11:04 09/19/17 11:24 Duoneb 0.5-3 Mg/3 Ml Neb IH 09/19/17 11:05 3 ml STAT ONE Administration Albuterol/Ipratropium Confirm 09/19/17 11:22 Duoneb 0.5-3 Mg/3 Ml Neb Administered 09/19/17 11:23 Dose 3 ml IH .STK-MED ONE Hydroxyzine HCl 50 mg 09/19/17 11:05 09/19/17 11:21 Atarax 25 Mg PO 09/19/17 11:06 50 mg STAT ONE Administration Hydroxyzine HCl Confirm 09/19/17 11:21 Atarax 25 Mg Administered 09/19/17 11:22 Dose 50 mg .ROUTE .STK-MED ONE Lactated Ringer's 1,000 mls @ 999 mls/hr 09/19/17 11:04 09/19/17 11:22 Lactated Ringers IV 09/19/17 12:04 999 mls/hr .Q1H1M ONE Administration Lactated Ringer's Confirm 09/19/17 11:21 Lactated Ringers Administered 09/19/17 11:22 Dose 1,000 mls @ ud IV .STK-MED ONE Lab/Rad Data: Laboratory Result Diagrams 09/19/17 11:50 09/19/17 11:50 Laboratory Results 09/19/17 09/19/17 09/19/17 Range/Units 12:45 11:50 11:50 WBC (4.0-10.5) K/mm3 RBC (4.1-5.4) M/mm3 Hgb (12.0-16.0) gm/dl Hct (35-47) % MCV (78-100) fl MCH (26-32) pg MCHC (32-36) g/dl RDW (11.5-14.0) % Plt Count (150-450) K/mm3 MPV (6-9.5) fl Gran % (36.0-66.0) % Lymphocytes % (24.0-44.0) % Monocytes % (0.0-12.0) % Eosinophils % (0.00-5.0) % Basophils % (0.0-0.4) % Basophils # (0-0.4) Sodium 134 L (136-145) mEq/L Potassium 4.3 (3.5-5.1) mEq/L Chloride 99 (98-107) mEq/L Carbon Dioxide 23.7 (21-32) mEq/L Anion Gap 15.8 H (5-15) MEQ/L BUN 11 (9-20) mg/dL Creatinine 1.23 (0.55-1.30) mg/dl Estimated GFR 49 ML/MIN Glucose 104 (70-110) MG/DL Lactic Acid (0.4-2.0) Calcium 8.5 (8.5-10.1) mg/dL Magnesium 2.0 (1.8-2.4) mg/dL Total Bilirubin 0.40 (0.2-1.0) mg/dL AST 116 H (15-37) U/L ALT 209 H (12-78) U/L Alkaline Phosphatase 272 H (46-116) U/L Serum Total Protein 7.2 (6.4-8.2) gm/dL Albumin 3.5 (3.4-5.0) g/dL Ur Collection Type CLEAN CATCH Urine Color YELLOW (YELLOW) Urine Appearance HAZY (CLEAR) Urine pH 5.0 (5-6) Ur Specific [place] 1.015 (1.005-1.025) Urine Protein 300 (Negative) Urine Ketones NEGATIVE (NEGATIVE) Urine Blood 250 (0-5) Gregg/ul Urine Nitrite NEGATIVE (NEGATIVE) Urine Bilirubin NEGATIVE (NEGATIVE) Urine Urobilinogen NORMAL (0-1) mg/dL Ur Leukocyte Esterase 2+ (NEGATIVE) Urine Microscopic RBC 5-10 (0-2) /HPF Urine Microscopic WBC 10-15 (0-5) /HPF Ur Epithelial Cells FEW (FEW) /HPF Urine Bacteria MODERATE (NEGATIVE) /HPF Urine Mucus SLIGHT (NEGATIVE) /HPF Urine Culture Reflexed YES (NO) Urine Glucose NEGATIVE (NEGATIVE) mg/dL Influenza Type A Ag (NEGATIVE) Influenza Type B Ag (NEGATIVE) RSV (PCR) (Negative) Specimen Received 09-19-17 1245 09/19/17 09/19/17 09/19/17 Range/Units 11:50 11:50 11:00 WBC 3.9 L (4.0-10.5) K/mm3 RBC 3.40 L (4.1-5.4) M/mm3 Hgb 10.3 L (12.0-16.0) gm/dl Hct 31.8 L (35-47) % MCV 93.5 (78-100) fl MCH 30.2 (26-32) pg MCHC 32.4 (32-36) g/dl RDW 13.9 (11.5-14.0) % Plt Count 179 (150-450) K/mm3 MPV 9.4 (6-9.5) fl Gran % 48.8 (36.0-66.0) % Lymphocytes % 35.8 (24.0-44.0) % Monocytes % 12.4 H (0.0-12.0) % Eosinophils % 2.5 (0.00-5.0) % Basophils % 0.5 (0.0-0.4) % Basophils # 0.02 (0-0.4) Sodium (136-145) mEq/L Potassium (3.5-5.1) mEq/L Chloride (98-107) mEq/L Carbon Dioxide (21-32) mEq/L Anion Gap (5-15) MEQ/L BUN (9-20) mg/dL Creatinine (0.55-1.30) mg/dl Estimated GFR ML/MIN Glucose (70-110) MG/DL Lactic Acid 1.9 (0.4-2.0) Calcium (8.5-10.1) mg/dL Magnesium (1.8-2.4) mg/dL Total Bilirubin (0.2-1.0) mg/dL AST (15-37) U/L ALT (12-78) U/L Alkaline Phosphatase (46-116) U/L Serum Total Protein (6.4-8.2) gm/dL Albumin (3.4-5.0) g/dL Ur Collection Type Urine Color (YELLOW) Urine Appearance (CLEAR) Urine pH (5-6) Ur Specific [place] (1.005-1.025) Urine Protein (Negative) Urine Ketones (NEGATIVE) Urine Blood (0-5) Gregg/ul Urine Nitrite (NEGATIVE) Urine Bilirubin (NEGATIVE) Urine Urobilinogen (0-1) mg/dL Ur Leukocyte Esterase (NEGATIVE) Urine Microscopic RBC (0-2) /HPF Urine Microscopic WBC (0-5) /HPF Ur Epithelial Cells (FEW) /HPF Urine Bacteria (NEGATIVE) /HPF Urine Mucus (NEGATIVE) /HPF Urine Culture Reflexed (NO) Urine Glucose (NEGATIVE) mg/dL Influenza Type A Ag POSITIVE (NEGATIVE) Influenza Type B Ag NEGATIVE (NEGATIVE) RSV (PCR) NEGATIVE (Negative) Specimen Received - Progress Progress Note: 09/19/17 14:09 CXR neg. Neb given. IVF bolus given. CAlled Dr Haji. Pt agrees for release with tamiflu and to continue alb MDI and symptom Rx. Counseled pt/family regarding: lab results, diagnosis, need for follow-up, rad results - Departure Time of Disposition: 14:09 Departure Disposition: Home Clinical Impression: Influenza A Condition: Stable Critical Care Time: No Referrals: JOSE HAJI [Primary Care Provider] - Instructions: Cough, Adult (DC), Flu, Adult (DC) Additional Instructions: UPPER RESPIRATORY INFECTIONS 1. The signs and symptoms of a cold may last up to 10 days. These illnesses are due to viruses which are not treatable with antibiotics. 2. The following suggestions can aid in recovery and to minimize symptoms: A. Increase fluid intake. B. Acetaminophen or Ibuprofen as directed. C. Avoid smoking environments as this will increase the risk of developing pneumonia. D. For children, may use a cool mist vaporizer in the child's room. 3. Contact your Family Physician if you note: A. Persisten fever >103 for more than 3 days B. Breathing difficulty C. Productive cough of yellow/green sputum D. Illness greater than 7 days E. Persistent vomiting F. Stiff neck Rx tamiflu. Continue your albuterol puffer every 4 hours. [address] fluids. Call Dr Haji for problems or concerns. Prescriptions: Oseltamivir 75 mg [Tamiflu 75MG Capsule] 75 mg PO BID #10 cap
[2017-09-19] MEDS ORDERED: TYLENOL 325 MG ONE (11:21)
[2017-09-19] MEDS ORDERED: ATARAX 25 MG ONE (11:21)
--- NOTE | 2017-09-19 11:25 | XRAY ---
Indication: Fever, cough, and sternal pain. Comparison: September 18, 2017. PA/lateral chest again demonstrates normal heart, lungs, and bony thorax with right-sided Port-A-Cath.
[2017-09-19 11:47] LABS: INFLUENZA A POSITIVE (NEGATIVE); INFLUENZA B NEGATIVE (NEGATIVE); RESPIRATORY SYNCTIAL VIRUS NEGATIVE (Negative)
[2017-09-19 11:54] LABS: BASOPHIL % 0.5 % (0.0-0.4); Basophil (Absolute #) 0.02 (0-0.4); Eosinophil % 2.5 % (0.00-5.0); Granulocyte Absolute (ANC) 1.92 (1.4-6.9); Granulocytes % 48.8 % (36.0-66.0); Hematocrit 31.8 % (35-47); Hemoglobin 10.3 gm/dl (12.0-16.0); Lactic Acid 1.9 (0.4-2.0); Lymphocyte (Absolute #) 1.41 (1.0-4.6); Lymphocytes % 35.8 % (24.0-44.0); Mean Cell Volume 93.5 fl (78-100); Mean Corpuscular Hgb Concent. 32.4 g/dl (32-36); Mean Platelet Volume 9.4 fl (6-9.5); Monocyte (Absolute #) 0.49 (0.0-1.3); Monocytes % 12.4 % (0.0-12.0); Platelet Count 179 K/mm3 (150-450); Red Cell Distribution Width 13.9 % (11.5-14.0); White Blood Count 3.9 K/mm3 (4.0-10.5)
[2017-09-19 11:55] LABS: Mean Corpuscular Hemoglobin 30.2 pg (26-32)
[2017-09-19 12:03] VITALS: O2SAT 98
[2017-09-19 12:20] LABS: ALBUMIN 3.5 g/dL (3.4-5.0); ANION GAP 15.8 MEQ/L (5-15); BILIRUBIN,TOTAL 0.4 mg/dL (0.2-1.0); Calcium 8.5 mg/dL (8.5-10.1); Carbon Dioxide 23.7 mEq/L (21-32); Creatinine 1 1.23 mg/dl (0.55-1.30); Potassium 4.3 mEq/L (3.5-5.1); Total Protein 7.2 gm/dL (6.4-8.2)
[2017-09-19 13:00] LABS: Appearance HAZY (CLEAR); Bilirubin NEGATIVE (NEGATIVE); Blood 250 Ery/ul (0-5); Glucose NEGATIVE (NEGATIVE); Ketones NEGATIVE (NEGATIVE); Leukocyte Esterase 2+ (NEGATIVE); Nitrite NEGATIVE (NEGATIVE); Protein,Urine Dip 300 (Negative); Specific Gravity 1.015 (1.005-1.025); Urobilinogen NORMAL mg/dL (0-1)
[2017-09-19 13:07] LABS: Bacteria MODERATE /HPF (NEGATIVE); Epithelial Cells FEW /HPF (FEW); Mucus SLIGHT /HPF (NEGATIVE)
[2017-09-19 13:18] VITALS: PULSE 78
[2017-09-19 14:32] VITALS: BP 102/65
== END 2017-09-19 14:36 | disposition home or self-care (01) ==
LOC: ED 10:33
DX: J10.1 Influenza due to other identified influenza virus with other respiratory manifestations (principal); R53.1 Weakness; R51 Headache; Z79.899 Other long term (current) drug therapy
CPT/HCPCS: 36415; 71046; 80053; 81000; 83605; 83735; 85025; 87077; 87086; 87631; 94150; 94640; 96360; 99283; 99284; J1642; A9270-GY

== ENCOUNTER 2017-10-04 12:15 | Emergency (ER) | payer MEDICARE ==
[2017-10-04] MEDS ORDERED: MORPHINE SULFATE 4 MG INJ IV ONE (13:04)
[2017-10-04] MEDS ORDERED: Zofran 4 MG/2 ML VIAL IV ONE (13:04)
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
[2017-10-04] MEDS ORDERED: Zofran 4 MG/2 ML VIAL ONE (13:18)
[2017-10-04] MEDS ORDERED: MORPHINE SULFATE 4 MG INJ ONE (13:18)
[2017-10-04 14:54] VITALS: BP 111/68; PULSE 89; O2SAT 99
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
== END 2017-10-04 14:53 | disposition home or self-care (01) ==
LOC: ED 12:15
DX: T14.8XXA Other injury of unspecified body region, initial encounter (principal); V59.88XA Occupant (driver) (passenger) of pick-up truck or van injured in other specified transport accidents, initial encounter; Y92.415 Exit ramp or entrance ramp of street or highway as the place of occurrence of the external cause; R51 Headache; M54.2 Cervicalgia; M79.652 Pain in left thigh; M54.6 Pain in thoracic spine; M54.5 Low back pain; R07.9 Chest pain, unspecified; R10.10 Upper abdominal pain, unspecified; M79.1 Myalgia; Z93.3 Colostomy status; K75.9 Inflammatory liver disease, unspecified; N18.3 Chronic kidney disease, stage 3 (moderate); K86.1 Other chronic pancreatitis; K91.2 Postsurgical malabsorption, not elsewhere classified; Z90.49 Acquired absence of other specified parts of digestive tract; F17.200 Nicotine dependence, unspecified, uncomplicated; Z79.899 Other long term (current) drug therapy
CPT/HCPCS: 70450; 72100; 72125; 96374; 96375; 99284; J2270; J2405

== ENCOUNTER 2017-10-16 12:13 | Emergency (ER) | payer MEDICARE ==
[2017-10-16 12:39] VITALS: O2SAT 99
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
[2017-10-16 13:46] VITALS: BP 132/78; PULSE 78
== END 2017-10-16 14:01 | disposition home or self-care (01) ==
LOC: ED 12:13
DX: M79.652 Pain in left thigh (principal); Z79.899 Other long term (current) drug therapy; G89.4 Chronic pain syndrome
CPT/HCPCS: 72170; 99283

== ENCOUNTER 2017-11-11 08:33 | Inpatient (IN) | payer MEDICARE ==
[2017-11-11] MEDS ORDERED: OXYCODONE-ACETAMINOPHEN 10-325 PO PRN (16:00)
[2017-11-11 16:03] LABS: AMYLASE 123 U/L (30-110); LIPASE 220 U/L (23-300)
[2017-11-11] MEDS: Lactated Ringers 1,000 ML IV SCH (16:50)
[2017-11-11] MEDS ORDERED: Phenergan 25 MG INJ IV PRN (17:04)
[2017-11-11] MEDS: Zofran 4 MG/2 ML VIAL IV PRN ×2 (17:08→23:47)
[2017-11-11] MEDS ORDERED: DILAUDID 2 MG INJECTION IV STA (17:10)
[2017-11-11] MEDS: DILAUDID 1 MG/1ML PCA IV PRN (18:27)
[2017-11-11] MEDS: Cyclobenzaprine 10 MG PO SCH (21:32)
[2017-11-11] MEDS: LYRICA 100MG PO SCH (21:32)
[2017-11-11] MEDS: PROAMATINE 5 MG PO SCH (21:33)
[2017-11-11] MEDS ORDERED: Valium 5 MG PO SCH (22:00)
[2017-11-11] MEDS ORDERED: PANCRELIPASE DR 5,000 UNIT CAP PO SCH (22:00)
[2017-11-12] MEDS: Lactated Ringers 1,000 ML IV SCH ×3 (00:33→16:40)
[2017-11-12] MEDS ORDERED: MEDICATION INTERVENTION MC SCH (07:30)
[2017-11-12 07:45] LABS: Mean Cell Volume 93.9 fl (78-100); Mean Corpuscular Hemoglobin 30.3 pg (26-32); Mean Corpuscular Hgb Concent. 32.3 g/dl (32-36); Mean Platelet Volume 9.5 fl (6-9.5); Platelet Count 219 K/mm3 (150-450); Red Cell Distribution Width 15.3 % (11.5-14.0); White Blood Count 2.7 K/mm3 (4.0-10.5)
[2017-11-12] MEDS: PANCRELIPASE DR 5,000 UNIT CAP PO SCH ×3 (07:47→16:40)
[2017-11-12 08:12] LABS: ALBUMIN 3.3 g/dL (3.5-5.0); ALKALINE PHOSPHATASE 125 U/L (38-126); ANION GAP 10.3 MEQ/L (5-15); BLOOD UREA NITROGEN 8 mg/dL (7-17); CHLORIDE 104 mmol/L (98-107); Calcium 8.7 mg/dL (8.4-10.2); Carbon Dioxide 28 mmol/L (22-30); Creatinine 1 0.74 mg/dL (0.52-1.04); Glucose 88 mg/dL (74-106); Potassium 4.2 mmol/L (3.5-5.1); SGOT/AST 405 U/L (14-36); SGPT/ALT 487 U/L (0-35); SODIUM 138 mmol/L (137-145); Total Protein 6.1 g/dL (6.3-8.2)
--- NOTE | 2017-11-12 08:39 | PCM.HP ---
History of Present Illness - Chief Complaint Chief Complaint: Abdominal Pain History of Present Illness: is a 52 year old female pt of mine with chronic pancreatitis, ileostomy and suprapubic catheter with renal failure who came in to infusion with increasing abdominal pain yesterday. The pain had started yesterday morning , LUE and epigastric, with underlying pain and waves of sharp pain. Was 8/10 when I interviewed and examined her briefly late yesterday afternoon. She denied fever or vomiting. Output to the ostomy has been thick. Pt gets labs three times a week here at [facility] infusion, ordered by Dr. Orourke, and she also gets fluids three times weekly. Her AST and ALT were noted to have increased yesterday; AST from 35 to 150, and ALT from 35 to 74. This morning her AST is 405 and her ALT is 487. Alk phos is 125. T bili 0.2. BUN 8 and Cr 0.74. This morning her pain is 7/10. 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 She states her pain was better while she was in bed, but increased when she got up. - Review of Systems Abdominal/Gastrointestinal: Abdominal Pain, Nausea, Appetite Changes All Other Systems: Reviewed and Negative Medications & Allergies Home Medications: Home Medication List Diazepam 5 mg [Valium 5 MG] 5 mg PO TID 12/24/16 [History Confirmed ] Doxylamine Succinate [Unisom Sleep Aid] 25 mg PO HS 12/24/16 [History Confirmed 11/11/17] Pregabalin [Lyrica] 100 mg PO TID 12/24/16 [History Confirmed 11/11/17] Promethazine HCl 25 mg [Phenergan 25 mg] 25 mg PO BIDPRN PRN 01/07/17 [ History Confirmed 11/11/17] Midodrine HCl 10 mg PO TID 01/13/17 [History Confirmed 11/11/17] Amitriptyline HCl 100 mg PO HS 07/04/17 [History Confirmed 11/11/17] Sodium Chloride 1 gm PO BID 07/23/17 [History Confirmed 11/11/17] Heparin Flush 500 units/5 ml [Heparin Lock Flush 100 Units/ml 5ml Syringe] 500 units PORT FLUSH PRN PRN disp.syrin 08/10/17 [Rx Confirmed 11/11/17] Lipase/Protease/Amylase [Concepcion Teran 24,000 Units Capsule] 6,000 udcap PO TID 08/22 [History Confirmed 11/11/17] Cyclobenzaprine HCl [Flexeril] 5 mg PO TID 11/11/17 [History Confirmed 11/11/17] Loperamide HCl 2 mg [Imodium 2 mg] 4 mg PO TID 11/11/17 [History Confirmed 11/11/17] Vortioxetine Hydrobromide [Brintellix] 20 mg PO DAILY 11/11/17 [History Confirmed 11/11/17] Allergies/Adverse Reactions: Allergies Allergy/AdvReac Type Severity Reaction Status Date / Time oxybutynin Allergy Severe Verified 11/03/17 06:42 ampicillin Allergy Mild Verified 11/03/17 06:42 duloxetine [From Cymbalta] Allergy Mild Verified 11/03/17 06:42 erythromycin base Allergy Mild Verified 11/03/17 06:42 [Erythromycin Base] - Past Medical History Past Medical History: Yes Neurological History: Paralysis, Peripheral Neuropathy ENT History: No Pertinent History Cardiac History: Other Respiratory History: No Pertinent History Endocrine Medical History: No Pertinent History, Liver Disease Musculoskelatal History: Fractures GI Medical History: Other History: No Pertinent History, Renal Disease Pyscho-Social History: Anxiety, Depression Reproductive Disorders: Other Comment: Hypotension - Female History Hx Last Menstrual Period: postmenopausa; Are you now?: No - Past Surgical History Past Surgical History: Yes Neuro Surgical History: No Pertinent History Cardiac History: No Pertinent History Respiratory Surgery: No Pertinent History GI Surgical History: Bowel Surgery, Cholecystectomy Genitourinary Surgical Hx: No Pertinent History Musculskeletal Surgical Hx: No Pertinent History Female Surgical History: Hysterectomy Other Surgical History: has 120 cm of small bowel, ostomoy - Social History Smoking Status: Current every day smoker How long have you smoked: 25 Exposure to second hand smoke: Yes Alcohol: None Drug Use: none - Physical Exam Vital Signs: Vital Signs - 24 hr Temp Pulse Resp BP Pulse Ox 11/12/17 08:00 95 11/12/17 07:24 98.2 F 89 16 100/59 95 11/12/17 04:00 98.3 F 77 19 96/60 97 11/12/17 00:00 97.6 F 68 16 108/61 94 L 11/11/17 20:00 98.0 F 79 18 105/55 96 11/11/17 18:27 98 11/11/17 16:00 98.7 F 88 16 127/75 98 11/11/17 15:15 98.7 F 88 16 127/75 98 General Appearance: mild distress, alert Neurologic Exam: oriented x 3, cooperative Eye Exam: eyes nml inspection Ears, Nose, Throat Exam: moist mucous membranes Neck Exam: normal inspection Respiratory Exam: normal breath sounds, lungs clear, No crackles/rales, No rhonchi, No wheezing Cardiovascular Exam: regular rate/rhythm, normal heart sounds, No murmur Gastrointestinal/Abdomen Exam: soft, normal bowel sounds, tenderness (quite ttp LUQ and epigastrum), distention (LUQ/LLQ), guarding, other (exam difficult due to diffuse tenderness. Ostomy present RLQ. Suprapubic catheter present.), No mass Extremity Exam: normal inspection, No pedal edema, No swelling Skin Exam: normal color, warm, dry, No rash Results - Labs Lab/Micro Results: Lab Results-Last 24 Hours 11/11/17 11/12/17 11/12/17 Range/Units 08:05 07:10 07:10 WBC 2.7 L (4.0-10.5) K/mm3 RBC 3.30 L (4.1-5.4) M/mm3 Hgb 10.0 L (12.0-16.0) gm/dl Hct 31.0 L (35-47) % MCV 93.9 (78-100) fl MCH 30.3 (26-32) pg MCHC 32.3 (32-36) g/dl RDW 15.3 H (11.5-14.0) % Plt Count 219 (150-450) K/mm3 MPV 9.5 (6-9.5) fl Sodium 138 (137-145) mmol/L Potassium 4.2 (3.5-5.1) mmol/L Chloride 104 (98-107) mmol/L Carbon Dioxide 28 (22-30) mmol/L Anion Gap 10.3 (5-15) MEQ/L BUN 8 (7-17) mg/dL Creatinine 0.74 (0.52-1.04) mg/dL Estimated GFR > 60.0 ML/MIN Glucose 88 (74-106) mg/dL Calcium 8.7 (8.4-10.2) mg/dL Total Bilirubin 0.20 (0.2-1.3) mg/dL AST 405 H (14-36) U/L ALT 487 H (0-35) U/L Alkaline Phosphatase 125 (38-126) U/L Serum Total Protein 6.1 L (6.3-8.2) g/dL Albumin 3.3 L (3.5-5.0) g/dL Amylase 123 H (30-110) U/L Lipase 220 (23-300) U/L Assessment/Plan (1) Elevated liver enzymes Current Visit: No Status: Chronic Assessment & Plan: Quite a jump today from yesterday. I will get the number of her GI specialist last seen in [facility] and at least touch base in the event they want the patient to be transferred. Code(s): R74.8 - ABNORMAL LEVELS OF OTHER SERUM ENZYMES (2) Pancreatitis Current Visit: No Status: Acute Qualifiers: Chronicity: acute Pancreatitis type: unspecified pancreatitis type Acute pancreatitis complication: no infection or necrosis Qualified Code(s): K85.90 - Acute pancreatitis without necrosis or infection, unspecified Assessment & Plan: Has chronic pancreas issues, so when she has a flare she typically does not get a jump in amylase and lipase. Yesterday her amylase was just slightly elevated. Code(s): K85.90 - ACUTE PANCREATITIS WITHOUT NECROSIS OR INFECTION, UNSP (3) Abdominal pain Current Visit: No Status: Chronic Qualifiers: Abdominal location: epigastric Qualified Code(s): R10.13 - Epigastric pain Assessment & Plan: Again, likely related to pancreas, but she has had some ileus/SBO issues in the past. CT abd/pelvis with no sign of obstruction. CT was done without contrast ; pt with chronic renal failure AND was nauseated yesterday. Code(s): R10.9 - UNSPECIFIED ABDOMINAL PAIN (4) Chronic kidney disease (CKD) stage G3a/A1, moderately decreased glomerular filtration rate (GFR) between 45-59 mL/min/1.73 square meter and albuminuria creatinine ratio less than 30 mg/g Current Visit: No Status: Chronic Assessment & Plan: BUN/Cr very good currently (usually improved when she's on IV fluids) Code(s): N18.3 - CHRONIC KIDNEY DISEASE, STAGE 3 (MODERATE) (5) Ileostomy in place Current Visit: No Status: Chronic Code(s): Z93.2 - ILEOSTOMY STATUS (6) Suprapubic catheter Current Visit: No Status: Chronic Code(s): Z93.59 - OTHER CYSTOSTOMY STATUS (7) Left leg pain Current Visit: No Status: Acute Assessment & Plan: Saw PM&R for her leg and is in the midst of some fairly intensive rehab. Code(s): M79.605 - PAIN IN LEFT LEG
[2017-11-12] MEDS: LYRICA 100MG PO SCH ×3 (08:54→22:16)
[2017-11-12] MEDS: Cyclobenzaprine 10 MG PO SCH ×3 (08:54→22:15)
[2017-11-12] MEDS: [UNRECOGNIZED DRUG - OTHER] PO SCH ×2 (08:55→22:17)
[2017-11-12] MEDS: PROAMATINE 5 MG PO SCH ×3 (08:55→22:17)
[2017-11-12] MEDS: SODIUM CHLORIDE 1 GM PO SCH ×2 (08:55→22:17)
[2017-11-12] MEDS ORDERED: PATIENT OWN MEDICATION PO SCH (10:00)
[2017-11-12] MEDS ORDERED: VORTIOXETINE HYDROBROMIDE 20 MG PO SCH (10:00)
[2017-11-12] MEDS: Valium 5 MG PO SCH ×2 (10:36→17:53)
[2017-11-12] MEDS: DILAUDID 1 MG/1ML PCA IV PRN (11:54)
[2017-11-12] MEDS: Zofran 4 MG/2 ML VIAL IV PRN (17:52)
[2017-11-12] MEDS ORDERED: DOXYLAMINE SUCCINATE 25 MG PO SCH (22:00)
[2017-11-12] MEDS ORDERED: BENADRYL 25 MG CAPSULE PO SCH (22:00)
[2017-11-13] MEDS: Lactated Ringers 1,000 ML IV SCH (00:55)
[2017-11-13 03:53] VITALS: O2SAT 95
[2017-11-13 04:19] VITALS: BP 119/68; PULSE 93
[2017-11-13] MEDS: Valium 5 MG PO SCH (05:00)
[2017-11-13 05:29] LABS: Hematocrit 31.1 % (35-47); Hemoglobin 9.9 gm/dl (12.0-16.0); Mean Cell Volume 95.1 fl (78-100); Mean Corpuscular Hgb Concent. 31.8 g/dl (32-36); Mean Platelet Volume 9.2 fl (6-9.5); Platelet Count 201 K/mm3 (150-450); Red Blood Count 3.27 M/mm3 (4.1-5.4); Red Cell Distribution Width 14.9 % (11.5-14.0); White Blood Count 4.3 K/mm3 (4.0-10.5)
[2017-11-13 05:34] LABS: Mean Corpuscular Hemoglobin 30.2 pg (26-32)
[2017-11-13 05:48] LABS: ALBUMIN 3.3 g/dL (3.5-5.0); ALKALINE PHOSPHATASE 130 U/L (38-126); BLOOD UREA NITROGEN 5 mg/dL (7-17); CHLORIDE 102 mmol/L (98-107); Calcium 8.5 mg/dL (8.4-10.2); Carbon Dioxide 27 mmol/L (22-30); Creatinine 1 0.73 mg/dL (0.52-1.04); Glucose 93 mg/dL (74-106); Potassium 3.9 mmol/L (3.5-5.1); SGOT/AST 157 U/L (14-36); SGPT/ALT 284 U/L (0-35); SODIUM 136 mmol/L (137-145); Total Protein 6.1 g/dL (6.3-8.2)
[2017-11-13] MEDS: DILAUDID 1 MG/1ML PCA IV PRN (06:58)
--- NOTE | 2017-11-14 14:35 | DS ---
ADMISSION DIAGNOSES: 1) Elevated liver enzymes. 2) Pancreatitis. 3) Abdominal pain. 4) Chronic kidney disease stage III. 5) Ileostomy in place. 6) Suprapubic catheter. 7) Left leg pain. DISCHARGE DIAGNOSES: 1) ELEVATED LIVER ENZYMES. 2) PANCREATITIS. 3) ABDOMINAL PAIN. 4) CHRONIC KIDNEY DISEASE STAGE III. 5) ILEOSTOMY IN PLACE. 6) SUPRAPUBIC CATHETER. 7) LEFT LEG PAIN. HOSPITAL COURSE: This is a 52 year-old female patient of mine with history of chronic pancreatitis prior ileostomy and suprapubic catheter with renal failure who came to the infusion center with increasing abdominal pain the day prior to admission. On 11/09/2017, she was noted to have AST 35 and ALT 35. On 11/11/2017, she had AST and ALT that were slightly elevated in mid-100's. I admitted her for IV fluids and IV pain control. 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 After that she had blood work and her AST and ALT were in the 400's. She was still having abdominal pain 7 to 8 out of 10 despite the IV Dilaudid. CT of the abdomen and pelvis without contrast did not have any acute changes. Her white blood cells were low 2.7 and she was put into reverse isolation. Her pain was worse activity. I called and spoke with Dr. Hinson on the Transplant Team who had seen [facility] for GI issues. I actually spoke with the nurse control area operator for his service and after speaking with him she advised me that he wanted the patient to be transferred to . I agreed and she will be transferred when a bed opens. DISCHARGE PHYSICAL: Her temperature 98.2F, pulse 89, respirations 16, blood pressure 100/59. Pulse ox 95% on room air. On exam that morning she was in mild distress but alert, oriented x3 and cooperative. HEENT: Normal to inspection. Her mouth with moist mucous membranes. NECK: Normal to inspection. RESPIRATORY: With normal breath sounds. LUNGS: Clear. No crackles, rales, or wheezing. CV: Regular rate and rhythm, normal heart sounds. No murmur. GI: Soft with normal bowel sounds. Tenderness throughout but quite tender to palpation in left upper quadrant epigastrium. She had distention in left upper quadrant and left lower quadrant, had some guarding. Exam is difficult due to her tenderness. There is an ostomy present in the right lower quadrant, suprapubic catheter present. No masses. EXTREMITIES: Normal to inspection. No pedal edema. No swelling. SKIN: Normal color, warm, dry, no rash. MEDICATIONS: Medications while hospitalized but not including antibiotic. I continued her home medicine aside from her Imodium and her Percocet as she was on Dilaudid. DISPOSITION: [facility]. DISCHARGE CONDITION: Stable.
== END 2017-11-13 06:55 | DRG 947 ==
LOC: MED SURG 08:33 → OBSVTOIN 11-12 08:33
PROVIDERS: ADMIT Family Medicine; ATTEND Family Medicine
DX: R74.8 Abnormal levels of other serum enzymes (principal); K85.90 Acute pancreatitis without necrosis or infection, unspecified; R10.9 Unspecified abdominal pain; I12.9 Hypertensive chronic kidney disease with stage 1 through stage 4 chronic kidney disease, or unspecified chronic kidney disease; N18.3 Chronic kidney disease, stage 3 (moderate); Z93.2 Ileostomy status; G62.9 Polyneuropathy, unspecified; M79.605 Pain in left leg; R10.13 Epigastric pain; Z79.899 Other long term (current) drug therapy; F41.8 Other specified anxiety disorders; Z72.0 Tobacco use
CPT/HCPCS: 36415; 80053; 82150; 83690; 83735; 85027; 93268; G0378; J1170; J2405; A9270-GY

== ENCOUNTER 2018-01-07 17:48 | Emergency (ER) | payer MEDICARE ==
[2018-01-07 18:50] LABS: BASOPHIL % 0.6 % (0.0-0.4); Basophil (Absolute #) 0.03 (0-0.4); Eosinophil % 5.1 % (0.00-5.0); Eosinophil (Absolute #) 0.27 (0-0.5); Granulocyte Absolute (ANC) 2.62 (1.4-6.9); Granulocytes % 49.7 % (36.0-66.0); Hematocrit 35.7 % (35-47); Hemoglobin 11.7 gm/dl (12.0-16.0); Lymphocyte (Absolute #) 1.93 (1.0-4.6); Lymphocytes % 36.6 % (24.0-44.0); Mean Cell Volume 93.5 fl (78-100); Mean Corpuscular Hemoglobin 30.6 pg (26-32); Mean Corpuscular Hgb Concent. 32.8 g/dl (32-36); Mean Platelet Volume 9.7 fl (6-9.5); Monocyte (Absolute #) 0.42 (0.0-1.3); Platelet Count 273 K/mm3 (150-450); Red Blood Count 3.82 M/mm3 (4.1-5.4); Red Cell Distribution Width 14.8 % (11.5-14.0); White Blood Count 5.3 K/mm3 (4.0-10.5)
[2018-01-07 19:09] LABS: ALKALINE PHOSPHATASE 154 U/L (38-126); ANION GAP 12.5 MEQ/L (5-15); BLOOD UREA NITROGEN 11 mg/dL (7-17); CHLORIDE 106 mmol/L (98-107); Calcium 8.9 mg/dL (8.4-10.2); Carbon Dioxide 25 mmol/L (22-30); Creatinine 1 0.98 mg/dL (0.52-1.04); Glucose 99 mg/dL (74-106); Potassium 4.1 mmol/L (3.5-5.1); SGOT/AST 39 U/L (14-36); SGPT/ALT 52 U/L (0-35); SODIUM 140 mmol/L (137-145); Total Protein 6.8 g/dL (6.3-8.2)
[2018-01-07 19:14] LABS: Appearance HAZY (CLEAR); Bilirubin NEGATIVE (NEGATIVE); Blood 250 Ery/ul (0-5); Glucose NEGATIVE (NEGATIVE); Ketones NEGATIVE (NEGATIVE); Leukocyte Esterase 2+ (NEGATIVE); Mucus SLIGHT /HPF (NEGATIVE); Nitrite POSITIVE (NEGATIVE); Protein,Urine Dip 30 (Negative); Urobilinogen NORMAL mg/dL (0-1); WBC 15-25 /HPF (0-5)
[2018-01-07 19:15] LABS: Amourphous Crystal MODERATE /HPF (NEGATIVE); Bacteria MODERATE /HPF (NEGATIVE); Epithelial Cells MODERATE /HPF (FEW)
[2018-01-07 19:45] VITALS: O2SAT 95
--- NOTE | 2018-01-07 19:48 | ERPHSYRPT ---
- History of Present Illness Time Seen by Provider: 01/07/18 19:48 Historian: patient, family Patient Subjective Stated Complaint: Pt states "On friday I started to have creamy white vaginal discharge, abdominal pain, and kidney pain. I contacted Dr. Champion, my urologist, and went in friday and had urine cultures done. He gave me a low dose of Cipro to take as well as detrol LA to control bladder spasms that I am having around my suprapubic catheter. I also take norco at home and the pain is just to much. I contacted Dr. Champion this afternoon and he said the cultures are not back yet and if the pain is that bad to just go to the emergency department. I am also having pressure on my rectum and my vagina hurts as well." Triage Nursing Assessment: Pt alert and oriented X 3, skin pwd Pt ambulates with an upright steady gait, able to speak in clear full sentences. PT has supra pubic catheter in, pt has port that is already accessed with a needle upon arrival. no apparent respiratory distress noted. Physician History: The patient is a 52-year-old female with her complaining of right-sided abdominal pain and right flank pain since yesterday. She has known kidney and bladder problems. She has a supra pubic catheter in place and an ileostomy. She saw her urologist yesterday and was found to have a UTI. She was started on ciprofloxacin 250 mg twice a day but the pain has not let up. She has hydrocodone at home that has not helped. The urologist told her to come to the ER for the pain she was having. She denies fever or chills. Her past medical history is significant for total colectomy, suprapubic catheter, chronic pancreatitis, kidney disease, frequent bladder infections. Timing/Duration: yesterday Activities at Onset: none Quality: aching Abdominal Pain Onset Location: flank Pain Radiation: no radiation Severity of Pain-Max: moderate Severity of Pain-Current: moderate Modifying Factors: Improves With: nothing Associated Symptoms: denies symptoms Previous symptoms: same symptoms as today Allergies/Adverse Reactions: oxybutynin Allergy (Severe, Verified 01/02/18 09:30) pharyngeal swelling ampicillin Allergy (Mild, Verified 01/02/18 09:30) hives duloxetine [From Cymbalta] Allergy (Mild, Verified 01/02/18 09:30) nausea erythromycin base [Erythromycin Base] Allergy (Mild, Verified 01/02/18 09:30) Hives Home Medications: Diazepam 5 mg [Valium 5 MG] 5 mg PO TID 12/24/16 [History] Doxylamine Succinate [Unisom Sleep Aid] 25 mg PO HS 12/24/16 [History] Pregabalin [Lyrica] 100 mg PO TID 12/24/16 [History] Promethazine HCl 25 mg [Phenergan 25 mg] 25 mg PO BIDPRN PRN 01/07/17 [ History] Midodrine HCl 10 mg PO TID 01/13/17 [History] Amitriptyline HCl 100 mg PO HS 07/04/17 [History] Sodium Chloride 1 gm PO BID 07/23/17 [History] Lipase/Protease/Amylase [Creon Dr 24,000 Units Capsule] 6,000 udcap PO TID 08/22 [History] Loperamide HCl 2 mg [Imodium 2 mg] 4 mg PO TID 11/11/17 [History] Vortioxetine Hydrobromide [Brintellix] 20 mg PO DAILY 11/11/17 [History] Ciprofloxacin HCl [Cipro] 250 mg PO BID 01/07/18 [History] Tolterodine Tartrate [Tolterodine Tartrate ER] 4 mg PO DAILY 01/07/18 [History] Hx Tetanus, Diphtheria Vaccination/Date Given: No Hx Influenza Vaccination/Date Given: Yes Hx Pneumococcal Vaccination/Date Given: Yes Immunizations Up to Date: Yes - Review of Systems Constitutional: No Fever, No Chills Eyes: No Symptoms Ears, Nose, & Throat: No Symptoms Respiratory: No Cough, No Dyspnea Cardiac: No Chest Pain, No Edema, No Syncope Abdominal/Gastrointestinal: Abdominal Pain (right flank pain), No Nausea, No Vomiting, No Diarrhea Genitourinary Symptoms: No Dysuria Musculoskeletal: No Back Pain, No Neck Pain Skin: No Rash Neurological: No Dizziness, No Focal Weakness, No Sensory Changes Psychological: No Symptoms Endocrine: No Symptoms Hematologic/Lymphatic: No Symptoms Immunological/Allergic: No Symptoms All Other Systems: Reviewed and Negative - Past Medical History Pertinent Past Medical History: Yes Neurological History: Paralysis, Peripheral Neuropathy ENT History: No Pertinent History Cardiac History: Other Respiratory History: No Pertinent History Endocrine Medical History: No Pertinent History, Liver Disease Musculoskeletal History: Fractures GI Medical History: Other History: No Pertinent History, Renal Disease Psycho-Social History: Anxiety, Depression Female Reproductive Disorders: Other Other Medical History: Hypotension - Past Surgical History Past Surgical History: Yes Neuro Surgical History: No Pertinent History Cardiac: No Pertinent History Respiratory: No Pertinent History Gastrointestinal: Bowel Surgery, Cholecystectomy Genitourinary: No Pertinent History Musculoskeletal: No Pertinent History Female Surgical History: Hysterectomy Other Surgical History: has 120 cm of small bowel, ostomoy - Social History Smoking Status: Current every day smoker How long have you smoked: 20 years Exposure to second hand smoke: Yes Drug Use: none Patient Lives Alone: No - Female History Hx Last Menstrual Period: hysterectomy Hx Now: No - Nursing Vital Signs Nursing Vital Signs: Initial Vital Signs Temperature 98.4 F 01/07/18 17:55 Pulse Rate 96 H 01/07/18 17:55 Respiratory Rate 18 01/07/18 17:55 Blood Pressure 143/89 01/07/18 17:55 O2 Sat by Pulse Oximetry 98 01/07/18 17:55 Pain Scale Pain Intensity 6 - Physical Exam General Appearance: mild distress Eye Exam: PERRL/EOMI, eyes nml inspection Ears, Nose, Throat Exam: normal ENT inspection, pharynx normal, moist mucous membranes Neck Exam: normal inspection, non-tender, supple, full range of motion Respiratory Exam: normal breath sounds, lungs clear, No respiratory distress Cardiovascular Exam: regular rate/rhythm, normal heart sounds Gastrointestinal/Abdomen Exam: tenderness (right flank) Pelvic Exam: not done Rectal Exam: not done Back Exam: CVA tenderness (right) Extremity Exam: normal inspection, normal range of motion, pelvis stable Neurologic Exam: alert, oriented x 3, cooperative, normal mood/affect, nml cerebellar function, sensation nml, No motor deficits Skin Exam: normal color, warm, dry SpO2 Interpretation: normal SpO2: 95 Oxygen Delivery: Room Air Ordered Tests: Active Orders 24 hr Category Date Time Status IV Insertion STAT Care 01/07/18 18:35 Active CBC W DIFF Stat Lab 01/07/18 18:35 Completed CMP Stat Lab 01/07/18 18:45 Completed CULTURE,URINE Stat Lab 01/07/18 18:56 Received UA W/ MICROSCOPIC Stat Lab 01/07/18 18:56 Completed Lab/Rad Data: Laboratory Result Diagrams 01/07/18 18:35 01/07/18 18:45 Laboratory Results 01/07/18 01/07/18 01/07/18 Range/Units 18:56 18:45 18:35 WBC 5.3 (4.0-10.5) K/mm3 RBC 3.82 L (4.1-5.4) M/mm3 Hgb 11.7 L (12.0-16.0) gm/dl Hct 35.7 (35-47) % MCV 93.5 (78-100) fl MCH 30.6 (26-32) pg MCHC 32.8 (32-36) g/dl RDW 14.8 H (11.5-14.0) % Plt Count 273 (150-450) K/mm3 MPV 9.7 H (6-9.5) fl Gran % 49.7 (36.0-66.0) % Eos # (Auto) 0.27 (0-0.5) Absolute Lymphs (auto) 1.93 (1.0-4.6) Absolute Monos (auto) 0.42 (0.0-1.3) Lymphocytes % 36.6 (24.0-44.0) % Monocytes % 8.0 (0.0-12.0) % Eosinophils % 5.1 H (0.00-5.0) % Basophils % 0.6 (0.0-0.4) % Absolute Granulocytes 2.62 (1.4-6.9) Basophils # 0.03 (0-0.4) Sodium 140 (137-145) mmol/L Potassium 4.1 (3.5-5.1) mmol/L Chloride 106 (98-107) mmol/L Carbon Dioxide 25 (22-30) mmol/L Anion Gap 12.5 (5-15) MEQ/L BUN 11 (7-17) mg/dL Creatinine 0.98 (0.52-1.04) mg/dL Estimated GFR > 60.0 ML/MIN Glucose 99 (74-106) mg/dL Calcium 8.9 (8.4-10.2) mg/dL Total Bilirubin 0.20 (0.2-1.3) mg/dL AST 39 H (14-36) U/L ALT 52 H (0-35) U/L Alkaline Phosphatase 154 H (38-126) U/L Serum Total Protein 6.8 (6.3-8.2) g/dL Albumin 4.0 (3.5-5.0) g/dL Ur Collection Type VOID Urine Color YELLOW (YELLOW) Urine Appearance HAZY (CLEAR) Urine pH 6.0 (5-6) Ur Specific [place] 1.020 (1.005-1.025) Urine Protein 30 (Negative) Urine Ketones NEGATIVE (NEGATIVE) Urine Blood 250 (0-5) Gregg/ul Urine Nitrite POSITIVE (NEGATIVE) Urine Bilirubin NEGATIVE (NEGATIVE) Urine Urobilinogen NORMAL (0-1) mg/dL Ur Leukocyte Esterase 2+ (NEGATIVE) Urine Microscopic RBC 10-15 (0-2) /HPF Urine Microscopic WBC 15-25 (0-5) /HPF Ur Epithelial Cells MODERATE (FEW) /HPF Amorphous Crystals MODERATE (NEGATIVE) /HPF Urine Bacteria MODERATE (NEGATIVE) /HPF Urine Mucus SLIGHT (NEGATIVE) /HPF Urine Culture Reflexed YES (NO) Urine Glucose NEGATIVE (NEGATIVE) mg/dL Specimen Received 01/07/18 7175 - Progress Progress Note: 01/07/18 19:53 Pt requests antibiotics and pain meds. Counseled pt/family regarding: lab results, diagnosis, need for follow-up - Departure Time of Disposition: 19:55 Departure Disposition: Home Clinical Impression: UTI (urinary tract infection) Condition: Stable Critical Care Time: No Referrals: JOSE ZAMORANO [Primary Care Provider] - Additional Instructions: You have a bladder infection. You were given Rocephin 1 g, Toradol 15 mg, and Nubain 10 mg by IV in the ER. Stopped taking the ciprofloxacin. Begin tomorrow with Keflex 500 mg 4 times a day for 7 days. Call your urologist tomorrow and give him an update. Hopefully by tomorrow he will have the results of your urine culture that was performed yesterday. You may take the [place] that you have at home if needed for any breakthrough pain tonight. Prescriptions: Cephalexin Mh 500 mg [Keflex 500 mg] 1 cap PO QID #28 capsule
[2018-01-07] MEDS ORDERED: ROCEPHIN 1 Gm-D5w 50 ml Bag** 1 G/50 ML IVPB IV STA (19:54)
[2018-01-07] MEDS ORDERED: TORAdol 30 mg Injection IV ONE (19:54)
[2018-01-07] MEDS ORDERED: Nubain 10 MG/ML IV ONE (19:54)
[2018-01-07] MEDS ORDERED: TORAdol 30 mg Injection ONE (19:59)
[2018-01-07] MEDS ORDERED: ROCEPHIN 1 Gm-D5w 50 ml Bag** 1 G/50 ML IVPB IV ONE (19:59)
[2018-01-07] MEDS ORDERED: Nubain 10 MG/ML ONE (19:59)
[2018-01-07 20:07] VITALS: BP 121/71; PULSE 87
== END 2018-01-07 20:29 | disposition home or self-care (01) ==
LOC: ED 17:48
DX: N39.0 Urinary tract infection, site not specified (principal); R10.9 Unspecified abdominal pain; Z79.899 Other long term (current) drug therapy
CPT/HCPCS: 36000; 36415; 80053; 81000; 85025; 87086; 96365; 96374; 96375; 99284; J0696; J1642; J1885; J2300

== ENCOUNTER 2018-02-01 17:54 | Observation (INO) | payer MEDICARE ==
--- NOTE | 2018-02-01 19:30 | ERPHSYRPT ---
- History of Present Illness Time Seen by Provider: 02/01/18 19:22 Historian: patient Exam Limitations: no limitations Patient Subjective Stated Complaint: left lower quad abd pain after eating supper this evening. had outpatient infusion today of fluids. Triage Nursing Assessment: to room per w/c, holding abd, crying. skin w/d, color normal, resp nonlabored. ileostomy bag in place. portacath acsessed. tender left lower abd pain. states has hx of pancreatitis. Physician History: The patient is a 52-year-old female who was brought here by her for left -sided abdominal pain that began suddenly around 4 PM after eating this afternoon. The patient has a history of pancreatitis. The pain will intensify and then let up but she always has a significant amount of pain since 4:00. She denies vomiting or nausea. She denies fever. Her past medical history is significant for total colectomy with partial small bowel resection. She has an ileostomy bag. She has a suprapubic catheter. Every other day she presents to the infusion center for fluids, IV magnesium, an IV potassium through her port. Timing/Duration: today, hour(s) (3), sudden, worse Quality: sharpness, stabbing Abdominal Pain Onset Location: LUQ, LLQ Pain Radiation: no radiation Severity of Pain-Max: severe Severity of Pain-Current: severe Modifying Factors: Improves With: nothing Associated Symptoms: denies symptoms, No fever/chills, No nausea, No vomiting Previous symptoms: same symptoms as today, no recent treatment Allergies/Adverse Reactions: oxybutynin Allergy (Severe, Verified 02/01/18 18:24) pharyngeal swelling ampicillin Allergy (Mild, Verified 02/01/18 18:24) hives duloxetine [From Cymbalta] Allergy (Mild, Verified 02/01/18 18:24) nausea erythromycin base [Erythromycin Base] Allergy (Mild, Verified 02/01/18 18:24) Hives Home Medications: Diazepam 5 mg [Valium 5 MG] 5 mg PO TID 12/24/16 [History] Doxylamine Succinate [Unisom Sleep Aid] 25 mg PO HS 12/24/16 [History] Pregabalin [Lyrica] 100 mg PO TID 12/24/16 [History] Promethazine HCl 25 mg [Phenergan 25 mg] 25 mg PO BIDPRN PRN 01/07/17 [ History] Midodrine HCl 10 mg PO TID 01/13/17 [History] Amitriptyline HCl 100 mg PO HS 07/04/17 [History] Sodium Chloride 1 gm PO BID 07/23/17 [History] Lipase/Protease/Amylase [Creon Dr 24,000 Units Capsule] 6,000 udcap PO TID 08/22 [History] Loperamide HCl 2 mg [Imodium 2 mg] 4 mg PO TID 11/11/17 [History] Vortioxetine Hydrobromide [Brintellix] 20 mg PO DAILY 11/11/17 [History] Tolterodine Tartrate [Tolterodine Tartrate ER] 4 mg PO DAILY 01/07/18 [History] Buspirone HCl 5 mg [Buspar 5 mg] 10 mg PO TID 01/09/18 [History] Fluconazole 100 mg [Diflucan 100 MG] 100 mg PO DAILY 01/22/18 [History] Furosemide 40 mg [Lasix 40 MG] 40 mg PO DAILY 02/01/18 [History] Hx Tetanus, Diphtheria Vaccination/Date Given: No Hx Influenza Vaccination/Date Given: Yes Hx Pneumococcal Vaccination/Date Given: Yes - Review of Systems Constitutional: No Fever, No Chills Eyes: No Symptoms Ears, Nose, & Throat: No Symptoms Respiratory: No Cough, No Dyspnea Cardiac: No Chest Pain, No Edema, No Syncope Abdominal/Gastrointestinal: Abdominal Pain, No Nausea, No Vomiting, No Diarrhea Genitourinary Symptoms: No Dysuria Musculoskeletal: No Back Pain, No Neck Pain Skin: No Rash Neurological: No Dizziness, No Focal Weakness, No Sensory Changes Psychological: No Symptoms Endocrine: No Symptoms Hematologic/Lymphatic: No Symptoms Immunological/Allergic: No Symptoms All Other Systems: Reviewed and Negative - Past Medical History Pertinent Past Medical History: Yes Neurological History: Peripheral Neuropathy ENT History: No Pertinent History Cardiac History: Other Respiratory History: No Pertinent History Endocrine Medical History: No Pertinent History, Liver Disease Musculoskeletal History: Fractures GI Medical History: Other History: Renal Disease Psycho-Social History: Anxiety, Depression Female Reproductive Disorders: Other Other Medical History: Hypotension. short gut syndrome - Past Surgical History Past Surgical History: Yes Neuro Surgical History: No Pertinent History Cardiac: No Pertinent History Respiratory: No Pertinent History Gastrointestinal: Bowel Surgery, Cholecystectomy Genitourinary: No Pertinent History Musculoskeletal: No Pertinent History Female Surgical History: Hysterectomy Other Surgical History: has 120 cm of small bowel, ostomy - Social History Smoking Status: Current every day smoker How long have you smoked: 20 years Exposure to second hand smoke: Yes Drug Use: none Patient Lives Alone: No - Female History Hx Now: No - Nursing Vital Signs Nursing Vital Signs: Initial Vital Signs Temperature 98 F 02/01/18 18:18 Pulse Rate 89 02/01/18 18:18 Respiratory Rate 20 02/01/18 18:18 Blood Pressure 142/84 02/01/18 18:18 O2 Sat by Pulse Oximetry 97 02/01/18 18:18 Pain Scale Pain Intensity 10 - Physical Exam General Appearance: moderate distress Eye Exam: PERRL/EOMI, eyes nml inspection Ears, Nose, Throat Exam: normal ENT inspection, pharynx normal, moist mucous membranes Neck Exam: normal inspection, non-tender, supple, full range of motion Respiratory Exam: normal breath sounds, lungs clear, No respiratory distress Cardiovascular Exam: regular rate/rhythm, normal heart sounds Gastrointestinal/Abdomen Exam: tenderness (left side), guarding Pelvic Exam: not done Rectal Exam: not done Back Exam: normal inspection, normal range of motion, No CVA tenderness, No vertebral tenderness Extremity Exam: normal inspection, normal range of motion, pelvis stable Neurologic Exam: alert, oriented x 3, cooperative, normal mood/affect, nml cerebellar function, sensation nml, No motor deficits Skin Exam: normal color, warm, dry SpO2 Interpretation: normal SpO2: 95 Oxygen Delivery: Room Air - CT Exams Abdomen/Pelvis CT Interpretation: Negative (stable ostomy and suprapubic catheter. Her stomach is hurts maybe), Tele-radiologist Report, Other (stomach distended with food and fluid. per Dr Dominguez) Ordered Tests: Active Orders 24 hr Category Date Time Status IV Insertion STAT Care 02/01/18 19:34 Active ABDOMEN AND PELVIS W/0 CONTRAS [CT] Stat Exams 02/01/18 19:35 Taken AMYLASE Stat Lab 02/01/18 19:34 Completed CBC W DIFF Stat Lab 02/01/18 18:41 Completed CMP Stat Lab 02/01/18 19:34 Completed LIPASE Stat Lab 02/01/18 19:34 Completed Lactic Acid Stat Lab 02/01/18 19:34 Results UA W/RFX UR CULTURE Stat Lab 02/01/18 19:34 Uncollected Urine Triage Profile Stat Lab 02/01/18 19:35 Uncollected Medication Summary Generic Name Dose Route Start Last Admin Trade Name Kristy PRN Reason Stop Dose Admin Sodium Chloride 1,000 mls @ 100 mls/hr 02/01/18 19:45 02/01/18 19:46 Sodium Chloride 0.9% 1000 Ml IV 03/03/18 19:44 100 mls/hr .Q10H YURI Administration Discontinued Medications Generic Name Dose Route Start Last Admin Trade Name Freq PRN Reason Stop Dose Admin Hydromorphone HCl 1 mg 02/01/18 19:34 02/01/18 19:52 Hydromorphone 1 Mg/Ml Ampule IV 02/01/18 19:35 1 mg STAT ONE Administration Hydromorphone HCl Confirm 02/01/18 19:41 Dilaudid 2 Mg Injection Administered 02/01/18 19:42 Dose 2 mg .ROUTE .STK-MED ONE Ketorolac Tromethamine 30 mg 02/01/18 19:34 02/01/18 19:52 Toradol 30 Mg Injection IV 02/01/18 19:35 30 mg STAT ONE Administration Ketorolac Tromethamine Confirm 02/01/18 19:40 Toradol 30 Mg Injection Administered 02/01/18 19:41 Dose 30 mg .ROUTE .STK-MED ONE Ondansetron HCl 4 mg 02/01/18 19:34 02/01/18 19:52 Zofran 4 Mg/2 Ml Vial IV 02/01/18 19:35 4 mg STAT ONE Administration Ondansetron HCl Confirm 02/01/18 19:40 Zofran 4 Mg/2 Ml Vial Administered 02/01/18 19:41 Dose 4 mg .ROUTE .STK-MED ONE Lab/Rad Data: Laboratory Result Diagrams 02/01/18 19:34 02/01/18 19:34 Laboratory Results 02/01/18 02/01/18 02/01/18 Range/Units 19:34 19:34 19:34 WBC Cancelled (4.0-10.5) K/mm3 Corrected WBC (auto) Cancelled RBC Cancelled (4.1-5.4) M/mm3 Hgb Cancelled (12.0-16.0) gm/dl Hct Cancelled (35-47) % MCV Cancelled (78-100) fl MCH Cancelled (26-32) pg MCHC Cancelled (32-36) g/dl RDW Cancelled (11.5-14.0) % Plt Count Cancelled (150-450) K/mm3 MPV Cancelled (6-9.5) fl Gran % Cancelled (36.0-66.0) % Eos # (Auto) Cancelled (0-0.5) Absolute Lymphs (auto) Cancelled (1.0-4.6) Absolute Monos (auto) Cancelled (0.0-1.3) Add Manual Diff Cancelled Lymphocytes % Cancelled (24.0-44.0) % Monocytes % Cancelled (0.0-12.0) % Eosinophils % Cancelled (0.00-5.0) % Basophils % Cancelled (0.0-0.4) % Absolute Granulocytes Cancelled (1.4-6.9) Basophils # Cancelled (0-0.4) Sodium 139 (137-145) mmol/L Potassium 4.4 (3.5-5.1) mmol/L Chloride 102 (98-107) mmol/L Carbon Dioxide 27 (22-30) mmol/L Anion Gap 14.1 (5-15) MEQ/L BUN 27 H (7-17) mg/dL Creatinine 1.19 H (0.52-1.04) mg/dL Estimated GFR 50.6 ML/MIN Glucose 108 H (74-106) mg/dL Lactic Acid 1.9 (0.4-2.0) Calcium 9.0 (8.4-10.2) mg/dL Total Bilirubin 0.30 (0.2-1.3) mg/dL AST 163 H (14-36) U/L ALT 105 H (0-35) U/L Alkaline Phosphatase 251 H (38-126) U/L Serum Total Protein 7.1 (6.3-8.2) g/dL Albumin 4.2 (3.5-5.0) g/dL Amylase 86 (30-110) U/L Lipase 292 (23-300) U/L Slides for Path Review Cancelled 02/01/18 Range/Units 18:41 WBC 4.7 (4.0-10.5) K/mm3 Corrected WBC (auto) RBC 3.75 L (4.1-5.4) M/mm3 Hgb 11.6 L (12.0-16.0) gm/dl Hct 34.5 L (35-47) % MCV 92.0 (78-100) fl MCH 30.9 (26-32) pg MCHC 33.6 (32-36) g/dl RDW 14.4 H (11.5-14.0) % Plt Count 264 (150-450) K/mm3 MPV 9.9 H (6-9.5) fl Gran % 52.4 (36.0-66.0) % Eos # (Auto) 0.22 (0-0.5) Absolute Lymphs (auto) 1.57 (1.0-4.6) Absolute Monos (auto) 0.42 (0.0-1.3) Add Manual Diff Lymphocytes % 33.4 (24.0-44.0) % Monocytes % 8.9 (0.0-12.0) % Eosinophils % 4.7 (0.00-5.0) % Basophils % 0.6 (0.0-0.4) % Absolute Granulocytes 2.46 (1.4-6.9) Basophils # 0.03 (0-0.4) Sodium (137-145) mmol/L Potassium (3.5-5.1) mmol/L Chloride (98-107) mmol/L Carbon Dioxide (22-30) mmol/L Anion Gap (5-15) MEQ/L BUN (7-17) mg/dL Creatinine (0.52-1.04) mg/dL Estimated GFR ML/MIN Glucose (74-106) mg/dL Lactic Acid (0.4-2.0) Calcium (8.4-10.2) mg/dL Total Bilirubin (0.2-1.3) mg/dL AST (14-36) U/L ALT (0-35) U/L Alkaline Phosphatase (38-126) U/L Serum Total Protein (6.3-8.2) g/dL Albumin (3.5-5.0) g/dL Amylase (30-110) U/L Lipase (23-300) U/L Slides for Path Review - Progress Progress: improved Progress Note: 02/01/18 21:13 Pt given dilaudid 1 mg, zofran 4 mg, and toradol 30 mg by IV with some improvement. Dr Claudio recommends NG and NPO. Discussed with : González (for Dr Haji.) Will see patient in: hospital (observation) Counseled pt/family regarding: lab results, diagnosis, rad results - Departure Time of Disposition: 21:14 Departure Disposition: Observation (Per Dr Claudio for Dr Haji.) Clinical Impression: Abdominal pain, Acute distention of stomach Condition: Stable Critical Care Time: No Referrals: JOSE HAJI [Primary Care Provider] -
[2018-02-01] MEDS ORDERED: TORAdol 30 mg Injection IV ONE (19:34)
[2018-02-01] MEDS ORDERED: Zofran 4 MG/2 ML VIAL IV ONE (19:34)
[2018-02-01] MEDS ORDERED: Hydromorphone 1 mg/ml Ampule IV ONE (19:34)
[2018-02-01] MEDS ORDERED: Zofran 4 MG/2 ML VIAL ONE (19:40)
[2018-02-01] MEDS ORDERED: TORAdol 30 mg Injection ONE (19:40)
[2018-02-01] MEDS ORDERED: DILAUDID 2 MG INJECTION ONE (19:41)
[2018-02-01] MEDS: Sodium Chloride 0.9% 1000 ML 1,000 ML IV SCH (19:46)
[2018-02-01 20:12] LABS: Lactic Acid 1.9 (0.4-2.0)
[2018-02-01 20:27] LABS: ALBUMIN 4.2 g/dL (3.5-5.0); ANION GAP 14.1 MEQ/L (5-15); BILIRUBIN,TOTAL 0.3 mg/dL (0.2-1.3); Creatinine 1 1.19 mg/dL (0.52-1.04); Potassium 4.4 mmol/L (3.5-5.1); Total Protein 7.1 g/dL (6.3-8.2)
[2018-02-01 20:36] LABS: BASOPHIL % 0.6 % (0.0-0.4); Basophil (Absolute #) 0.03 (0-0.4); Eosinophil % 4.7 % (0.00-5.0); Eosinophil (Absolute #) 0.22 (0-0.5); Granulocyte Absolute (ANC) 2.46 (1.4-6.9); Granulocytes % 52.4 % (36.0-66.0); Hematocrit 34.5 % (35-47); Hemoglobin 11.6 gm/dl (12.0-16.0); Lymphocyte (Absolute #) 1.57 (1.0-4.6); Lymphocytes % 33.4 % (24.0-44.0); Mean Corpuscular Hemoglobin 30.9 pg (26-32); Mean Corpuscular Hgb Concent. 33.6 g/dl (32-36); Mean Platelet Volume 9.9 fl (6-9.5); Monocyte (Absolute #) 0.42 (0.0-1.3); Monocytes % 8.9 % (0.0-12.0); Platelet Count 264 K/mm3 (150-450); Red Blood Count 3.75 M/mm3 (4.1-5.4); Red Cell Distribution Width 14.4 % (11.5-14.0); White Blood Count 4.7 K/mm3 (4.0-10.5)
[2018-02-01] MEDS ORDERED: Zofran 4 MG/2 ML VIAL IV PRN (22:13)
[2018-02-01] MEDS ORDERED: TORAdol 30 mg Injection IV PRN (22:13)
[2018-02-01] MEDS ORDERED: TYLENOL 325 MG PO PRN (22:13)
[2018-02-01] MEDS ORDERED: BENADRYL 50 MG/ML IV PRN (22:13)
[2018-02-01] MEDS ORDERED: Sodium Chloride 0.9% 1000 ML 1,000 ML IV SCH (22:13)
[2018-02-01] MEDS: Pepcid 20 MG VIAL IV SCH (22:20)
[2018-02-01] MEDS: MORPHINE SULFATE 2 MG INJ IV PRN (22:21)
[2018-02-02 01:28] LABS: Appearance CLOUDY (CLEAR); Leukocyte Esterase 2+ (NEGATIVE); Nitrite POSITIVE (NEGATIVE); Protein,Urine Dip 100 (Negative); Specific Gravity 1.025 (1.005-1.025)
[2018-02-02 01:29] LABS: Bilirubin NEGATIVE (NEGATIVE); Blood 250 Ery/ul (0-5); Glucose NEGATIVE (NEGATIVE); Ketones NEGATIVE (NEGATIVE); Urobilinogen NORMAL mg/dL (0-1)
[2018-02-02 01:30] LABS: Bacteria MODERATE /HPF (NEGATIVE); RBC 50-100 /HPF (0-2); WBC 25-50 /HPF (0-5)
[2018-02-02 01:34] LABS: Amphetamine,Urine POSITIVE (NEGATIVE); Barbiturate,Urine POSITIVE (NEGATIVE); Benzodiazepine,Urine POSITIVE (NEGATIVE); Cocaine,Urine NEGATIVE (NEGATIVE); Methadone,Urine NEGATIVE (NEGATIVE); Opiate,Urine POSITIVE (NEGATIVE); PCP,Urine NEGATIVE (NEGATIVE); THC,Urine NEGATIVE (NEGATIVE)
[2018-02-02] MEDS: MORPHINE SULFATE 2 MG INJ IV PRN ×2 (02:20→06:23)
[2018-02-02 06:55] LABS: BASOPHIL % 0.5 % (0.0-0.4); Basophil (Absolute #) 0.02 (0-0.4); Eosinophil (Absolute #) 0.13 (0-0.5); Granulocyte Absolute (ANC) 3.63 (1.4-6.9); Granulocytes % 83.6 % (36.0-66.0); Hematocrit 34.4 % (35-47); Hemoglobin 11.3 gm/dl (12.0-16.0); Lymphocyte (Absolute #) 0.36 (1.0-4.6); Lymphocytes % 8.3 % (24.0-44.0); Mean Corpuscular Hemoglobin 30.5 pg (26-32); Mean Corpuscular Hgb Concent. 32.8 g/dl (32-36); Mean Platelet Volume 9.4 fl (6-9.5); Monocytes % 4.6 % (0.0-12.0); Platelet Count 163 K/mm3 (150-450); Red Cell Distribution Width 14.5 % (11.5-14.0); White Blood Count 4.3 K/mm3 (4.0-10.5)
[2018-02-02 07:58] LABS: ANION GAP 12.8 MEQ/L (5-15); BILIRUBIN,TOTAL 0.6 mg/dL (0.2-1.3); Calcium 8.7 mg/dL (8.4-10.2); Creatinine 1 1.7 mg/dL (0.52-1.04); Potassium 4.5 mmol/L (3.5-5.1)
[2018-02-02] MEDS: Sodium Chloride 0.9% 1000 ML 1,000 ML IV SCH (08:16)
--- NOTE | 2018-02-02 08:38 | XRAY ---
Indication: Left abdominal pain. Multiple contiguous axial images obtained through the abdomen and pelvis without contrast as ordered. Comparison: CT abdomen November 11, 2017. Lung bases again demonstrates mild bibasilar dependent atelectasis and fibrosis/scarring. No infiltrate or effusion. Heart is not enlarged. Stomach is distended with food/fluid. Noncontrasted stomach and bowel loops again appear nonobstructed with postsurgical changes related to colectomy with right lower quadrant ostomy. Suprapubic catheter in situ, cholecystectomy, and hysterectomy. No free fluid/air. Stable previous CT proven right lobe hepatic hemangioma. Remaining liver, pancreas, spleen, adrenal glands, kidneys, ureters, and aorta appear unremarkable for noncontrast exam. Osseous structures again demonstrates healing left 8/9 rib fractures. Also healing left pubic symphysis fracture not previously imaged. Impression: 1. Stable postsurgical changes and hepatic hemangioma. 2. No new or acute intra-abdominal/pelvic abnormalities on this noncontrast exam. CTDI 16.74
[2018-02-02] MEDS ORDERED: DILAUDID 2 MG INJECTION IV PRN (08:51)
[2018-02-02] MEDS ORDERED: NON-FORMULARY ITEM (Tolterodine Tartrate [Tolterodine Tartrate Er] 4 MG) PO SCH (10:00)
[2018-02-02] MEDS ORDERED: LYRICA 75 MG CAP PO SCH (10:00)
[2018-02-02] MEDS ORDERED: PROTEASE PO SCH (10:00)
[2018-02-02] MEDS ORDERED: AMYLASE PO SCH (10:00)
[2018-02-02] MEDS ORDERED: MEDICATION INTERVENTION MC SCH ×3 (10:00)
[2018-02-02] MEDS ORDERED: LIPASE PO SCH (10:00)
[2018-02-02] MEDS ORDERED: [UNRECOGNIZED DRUG - OTHER] PO SCH (10:00)
[2018-02-02] MEDS ORDERED: VORTIOXETINE HYDROBROMIDE 20 MG PO SCH (10:00)
[2018-02-02] MEDS: BUSPAR 5 MG PO SCH ×3 (10:15→22:06)
[2018-02-02] MEDS: Pepcid 20 MG VIAL IV SCH ×2 (10:31→22:06)
[2018-02-02] MEDS: PANCRELIPASE DR 5,000 UNIT CAP PO SCH ×2 (10:34→17:12)
[2018-02-02] MEDS: SODIUM CHLORIDE PO SCH ×2 (10:35→22:41)
[2018-02-02] MEDS: [UNRECOGNIZED DRUG - OTHER] PO SCH ×2 (10:35→22:41)
[2018-02-02] MEDS: PROAMATINE 5 MG PO SCH ×3 (10:39→22:34)
[2018-02-02] MEDS: LYRICA 100MG PO SCH ×3 (10:40→22:06)
[2018-02-02] MEDS: Valium 5 MG PO SCH ×3 (10:41→22:06)
[2018-02-02] MEDS ORDERED: PHARMACY DOSING REQUIRED: DILAUDID PCA IV ONE (12:50)
[2018-02-02] MEDS ORDERED: DILAUDID 1 MG/1ML PCA IV PRN (13:10)
--- NOTE | 2018-02-02 13:18 | HP ---
HISTORY OF PRESENT ILLNESS: This is a 52 year-old woman with multiple medical problems. She usually sees Dr. Haji. She presented to the emergency department last night with abdominal pain. She reports that she was in the infusion center here at [facility] for six hours on Friday which is normal for her. She gets fluids and electrolytes. She was feeling fine and went home. She reports she ate a sandwich and chips and then 15 minutes after that felt poorly with abdominal pain. She reports it was kind of towards the left middle side of her abdomen. She had some nausea but no vomiting. She presented to the emergency department where she was found to have a distended stomach on CT scan. The emergency room doctor felt she needed to come in for pain management. I asked that NG be placed if her stomach is distended and she is having abdominal pain and this was done. They reported that they got 1850 from that so far. The patient reports she continues to have some left-sided abdominal pain. She has had multiple surgeries in the past. 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 She reports that has been putting out liquid fluid like normal. She has a suprapubic catheter that she reports has not had as much urine as normal. She reports she follows closely with Dr. Orourke about her kidney disease and was supposed to see him today. REVIEW OF SYSTEMS: She denies any chest pain. She feels like she had some wheezing. No shortness of breath. She reports the left side of her body is always slightly bigger than the right side and that Dr. Orourke and Dr. Haji are aware of this. No clubbing, cyanosis or edema of her lower extremities that she has noted. She continues to have abdominal pain. No vomiting. Liquid stool from her ostomy. No rashes. PAST MEDICAL HISTORY: Short gut syndrome. Chronic diarrhea. Small bowel bacterial overgrowth. History of obstruction. In 2017 stage III chronic kidney disease. History of pancreatitis and hepatitis. Anxiety. Migraine headache. Hypomagnesemia. Hypokalemia. Hypo-osmolality. Hyponatremia. Anemia of chronic kidney disease. Nicotine dependence. PAST SURGICAL HISTORY: A 100 cm of the small bowel removed. Resection of the colon and large bowel. She had bladder surgery with suprapubic catheter placed. Stent to the right ureter. Bladder revision with a larger stent. Hysterectomy. Cholecystectomy. MEDICATIONS: Please see her home medication list which I reviewed. ALLERGIES: OXYBUTYNIN, AMPICILLIN, DULOXETINE, ERYTHROMYCIN. SOCIAL HISTORY: She is and lives with her . She reports smoking 3 to 4 cigarettes per day. She would like to quit but does not have any active plans to quit. FAMILY HISTORY: Noncontributory. PHYSICAL EXAMINATION: VITAL SIGNS: Temperature current 97.5F, temperature max 98.4F, heart rate 80 to 99, respiratory rate 16 to 20, blood pressure 107 to 149 over 65 to 93, weight 69.4 kg. Oxygen saturation 92 to 97% on room air. GENERAL: The patient is sitting up in bed a pleasant talkative lady in no acute distress. She has NG tube in place draining opaque yellow fluid. CVS: She has a regular rate and rhythm. No murmurs, gallops or rubs are appreciated. CHEST: Clear to auscultation bilaterally. No crackles or wheezes. ABDOMEN: Soft with normal bowel sounds. Tenderness in distal left of the umbilicus. No guarding. No rigidity. Well healed scars. Ileostomy is in place. There is fluid in the bag. The color cannot be determined at this time as the bag is opaque. She has suprapubic catheter in place draining dark yellow urine. EXTREMITIES: No clubbing, cyanosis or edema. SKIN: Warm, dry and intact. LABORATORY DATA AND TESTS: Her white blood cell count is 4.3, hemoglobin 11.3, PLT count 163. Creatinine on admission 1.19 and now 1.7. AST 379, ALT 258, alkaline phosphatase 263. UA with 25-50 red blood cells, moderate bacteria. Urine culture in lab. Her toxicology is positive for opiates, barbiturates, amphetamines and benzodiazepine. CT scan of the abdomen and pelvis revealed the stomach is distended with fluid/food, stable post-surgical changes and hepatic hemangioma. There is no new or acute intra-abdominal or pelvic abnormalities on this noncontrast exam. Please see the radiologist dictation for the full report. ASSESSMENT AND PLAN: 1) ABDOMINAL PAIN. She had an NG tube in place. Possibly she may have an ileus or some kind of gastric outlet obstruction. I will ask the general surgeons to see her. Continue with the NG today. If the output decreases will try to clamp it tomorrow. The patient states that she does not want to go back up to for evaluation there as she was not happy with her last hospital stay there in November. 2) ACUTE RENAL FAILURE WITH HISTORY OF CHRONIC KIDNEY DISEASE STAGE III. I will ask Dr. Orourke to see her. Continue her IV fluids and stop the NSAID that was ordered by the emergency room doctor that I was unaware of. 3) URINARY TRACT INFECTION. She has a urine culture ordered. She may be colonized, will await for the culture at this time before starting antibiotics. 4) ELEVATED LIVER ENZYMES. Will continue to monitor these. I will try to determine if she had any further work up for that as noted on past H&P from August. 5) SHORT BOWEL SYNDROME. 6) SUPRAPUBIC CATHETER. 7) ILEOSTOMY IN PLACE.
--- NOTE | 2018-02-02 15:14 | CONS ---
CONSULT DATE: 02/02/2018 This patient is seen for Dr. Misha Stewart who is structural iron erector for our group today. Dr. Claudio asked for a surgical consult. HISTORY: The patient has a complex history of multiple surgeries initially down in [place] had a couple of surgeries by surgeons down there apparently. She had hysterectomy. She had lysis of adhesions. She had a bowel leak, had a partial bowel resection at that time. Later apparently according to the patient had total colectomy in [place] by who she said "Dr. Power". She had a tubal in the past. She had some chronic liver and kidney, had some sepsis problems, chronic suprapubic catheter, leg bag as well as chronic ileostomy since that time. PAST MEDICAL HISTORY: Hepatitis B, anxiety, depression, hypokalemia, hypomagnesium, chronic renal disease, history of colitis in the past. She had chronic infusion. She had infusion yesterday of electrolytes. She had some cramping and was admitted through the emergency room last night. Dr. Stewart was consulted. MEDICATIONS: Currently include cyanocobalamin, insulin, vitamin B, hydrocodone, atropine, paroxetine, diazepam, Midodrine, doxylamine, promethazine, Albuterol sulfate, cetirizine, tolterodine tartrate, fluconazole, Spironolactone, magnesium oxide, loperamide, amitriptyline. ALLERGIES: OXYBUTYNIN, AMPICILLIN, ERYTHROMYCIN, DULOXETINE. FAMILY HISTORY: Unknown. SOCIAL HISTORY: Smoking. REVIEW OF SYSTEMS: Twelve systems reviewed per admission assessment. No chest pain or palpitations other systems negative or noncontributory as above and per preadmission questionnaire. PHYSICAL EXAMINATION: GENERAL: A chronically ill female. HEENT: Sclera nonicteric. NECK: No JVD. CHEST: Equal excursion, nonlabored breathing. CVS: Regular rhythm and pulse. ABDOMEN: Soft. She had ileostomy on the right side. There is some stool in the bag. She has suprapubic catheter down to leg bag. Urine is clear. Midline incision she has got some tenderness lower abdomen. No rebound currently. EXTREMITIES: No significant edema. NEURO: She seems to be moving extremities grossly symmetrically. LAB DATA AND TESTS: CT scan reviewed with Dr. Dexter Dominguez. No obvious new changes. No obvious free air or collection. She had distended stomach but she did not have any obvious obstruction, unchanged from November 2017. IMPRESSION: Abdominal pain unclear etiology. No obvious acute surgical intervention necessary from our standpoint. She said she only has 100 to 110 cm of bowel left. She is nontoxic and has a white blood cell count of 4.3. Blood pressure had been 99 to 100's. She was positive for barbiturates and benzodiazepine, opiates and amphetamine on admission. She is afebrile at the time of admission. Persistent abdominal pain unclear etiology. No obvious obstruction or free air. No obvious hernia on CT scan. Whether she could have transient ischemia or not is unclear, nontoxic. Vitals are stable currently. No emergent surgery is necessary at this time but given as her pain has not improved I feel she is a poor surgical candidate for any surgery here locally as she is very high risk should she have operation and lose any more bowel. She could be permanent short bowel syndrome. I recommended to the patient and her that as she said her pain has not improved whatsoever we look for her to be transferred to her [place] surgeon who specializes in short bowel issues as she is not a surgical candidate here. She is very high risk for any abdominal operation, losing more bowel and becoming permanent short bowel syndrome. Again, this patient was seen for Dr. Misha Stewart. I recommend transfer to her [place] surgeon as her pain is not improved.
[2018-02-02] MEDS ORDERED: Sodium Chloride 0.9% 1000 ML 1,000 ML IV SCH (17:00)
[2018-02-02] MEDS: Lactated Ringers 1,000 ML IV SCH (17:57)
[2018-02-02] MEDS ORDERED: DOXYLAMINE SUCCINATE 25 MG PO SCH (22:00)
[2018-02-02] MEDS ORDERED: AMITRIPTYLINE HCL 100 MG PO SCH (22:00)
[2018-02-03] MEDS: Lactated Ringers 1,000 ML IV SCH ×2 (00:36→07:24)
[2018-02-03 05:24] LABS: BASOPHIL % 0.3 % (0.0-0.4); Basophil (Absolute #) 0.01 (0-0.4); Eosinophil % 4.8 % (0.00-5.0); Eosinophil (Absolute #) 0.16 (0-0.5); Granulocyte Absolute (ANC) 2.15 (1.4-6.9); Hematocrit 30.7 % (35-47); Hemoglobin 10.1 gm/dl (12.0-16.0); Lymphocytes % 20.8 % (24.0-44.0); Mean Cell Volume 92.2 fl (78-100); Mean Corpuscular Hemoglobin 30.3 pg (26-32); Mean Corpuscular Hgb Concent. 32.9 g/dl (32-36); Mean Platelet Volume 9.5 fl (6-9.5); Monocyte (Absolute #) 0.34 (0.0-1.3); Monocytes % 10.1 % (0.0-12.0); Platelet Count 190 K/mm3 (150-450); Red Blood Count 3.33 M/mm3 (4.1-5.4); Red Cell Distribution Width 14.1 % (11.5-14.0); White Blood Count 3.4 K/mm3 (4.0-10.5)
[2018-02-03 05:51] LABS: ALBUMIN 3.5 g/dL (3.5-5.0); ANION GAP 11.9 MEQ/L (5-15); BILIRUBIN,TOTAL 0.5 mg/dL (0.2-1.3); Calcium 8.3 mg/dL (8.4-10.2); Creatinine 1 1.18 mg/dL (0.52-1.04); Potassium 3.9 mmol/L (3.5-5.1); Total Protein 6.3 g/dL (6.3-8.2)
[2018-02-03] MEDS: PANCRELIPASE DR 5,000 UNIT CAP PO SCH (06:15)
[2018-02-03 07:06] VITALS: BP 118/63
[2018-02-03 07:54] VITALS: PULSE 84; O2SAT 93
--- NOTE | 2018-02-03 08:51 | PCM.NOTE ---
Date and Time: 02/03/18 0851 OBJECTIVE DATA Vital Signs: Vital Signs - 24 hr Temp Pulse Resp BP Pulse Ox 02/03/18 07:50 84 18 93 L 02/03/18 07:05 98.2 F 86 17 118/63 98 02/03/18 06:00 96 02/03/18 04:00 99 F 92 H 14 111/61 96 02/03/18 02:00 96 02/03/18 00:00 99.3 F 91 H 14 100/57 97 02/02/18 22:00 95 02/02/18 20:00 97.9 F 76 18 118/65 94 L 02/02/18 19:47 99 02/02/18 18:02 95 02/02/18 16:00 98.3 F 84 16 115/64 93 L 02/02/18 13:53 93 L 02/02/18 11:28 98.4 F 82 16 99/59 93 L Oxygen-Last 24 hours O2 Percentage 2 Liters = 28% O2 Percentage 2 Liters = 28% O2 Percentage 2 Liters = 28% O2 Percentage 2 Liters = 28% Pain Assessment - Last Documented Pain Intensity 5 Pain Scale Used 0-10 Pain Scale Intake and Output: Intake & Output 02/01/18 02/02/18 02/03/18 02/04/18 06:59 06:59 06:59 06:59 Intake Total 1154 2070 Output Total 1198 3540 Balance -796 -1470 Weight 69.4 kg Lab Results: Lab Results-Last 24 Hours 02/03/18 02/03/18 02/03/18 Range/Units 05:13 05:13 05:13 WBC 3.4 L (4.0-10.5) K/mm3 RBC 3.33 L (4.1-5.4) M/mm3 Hgb 10.1 L (12.0-16.0) gm/dl Hct 30.7 L (35-47) % MCV 92.2 (78-100) fl MCH 30.3 (26-32) pg MCHC 32.9 (32-36) g/dl RDW 14.1 H (11.5-14.0) % Plt Count 190 (150-450) K/mm3 MPV 9.5 (6-9.5) fl Gran % 64.0 (36.0-66.0) % Eos # (Auto) 0.16 (0-0.5) Absolute Lymphs (auto) 0.70 L (1.0-4.6) Absolute Monos (auto) 0.34 (0.0-1.3) Lymphocytes % 20.8 L (24.0-44.0) % Monocytes % 10.1 (0.0-12.0) % Eosinophils % 4.8 (0.00-5.0) % Basophils % 0.3 (0.0-0.4) % Absolute Granulocytes 2.15 (1.4-6.9) Basophils # 0.01 (0-0.4) Sodium 137 (137-145) mmol/L Potassium 3.9 (3.5-5.1) mmol/L Chloride 102 (98-107) mmol/L Carbon Dioxide 27 (22-30) mmol/L Anion Gap 11.9 (5-15) MEQ/L BUN 23 H (7-17) mg/dL Creatinine 1.18 H (0.52-1.04) mg/dL Estimated GFR 51.1 ML/MIN Glucose 95 (74-106) mg/dL Calcium 8.3 L (8.4-10.2) mg/dL Magnesium 2.1 (1.6-2.3) mg/dL Total Bilirubin 0.50 (0.2-1.3) mg/dL AST 167 H (14-36) U/L ALT 218 H (0-35) U/L Alkaline Phosphatase 218 H (38-126) U/L Serum Total Protein 6.3 (6.3-8.2) g/dL Albumin 3.5 (3.5-5.0) g/dL Radiology Exams: Radiology Procedures Category Date Time Status ABDOMEN AND PELVIS W/0 CONTRAS [CT] Stat Exams 02/01/18 19:35 Completed
[2018-02-03] MEDS: LYRICA 100MG PO SCH (09:34)
[2018-02-03] MEDS: BUSPAR 5 MG PO SCH (09:34)
[2018-02-03] MEDS: SODIUM CHLORIDE PO SCH (09:35)
[2018-02-03] MEDS: Valium 5 MG PO SCH (09:35)
[2018-02-03] MEDS: PROAMATINE 5 MG PO SCH (09:35)
[2018-02-03] MEDS: [UNRECOGNIZED DRUG - OTHER] PO SCH (09:35)
[2018-02-03] MEDS: Pepcid 20 MG VIAL IV SCH (09:35)
--- NOTE | 2018-02-03 09:35 | PCM.DCORD ---
- Discharge Discharge Date: 02/03/18 Disposition: Home, Self-Care Condition: Good Prescriptions: Continue Pregabalin [Lyrica] 100 mg PO TID Doxylamine Succinate [Unisom Sleep Aid] 25 mg PO HS Diazepam 5 mg [Valium 5 MG] 5 mg PO TID Promethazine HCl 25 mg [Phenergan 25 mg] 25 mg PO BIDPRN PRN PRN Reason: Nausea Midodrine HCl 10 mg PO TID Amitriptyline HCl 100 mg PO HS Sodium Chloride 1 gm PO BID Heparin Flush 500 units/5 ml [Heparin Lock Flush 100 Units/ml 5ml Syringe ] 500 units PORT FLUSH PRN PRN disp.syrin PRN Reason: Iv Port Flush Lipase/Protease/Amylase [Concepcion Teran 24,000 Units Capsule] 6,000 udcap PO TID Vortioxetine Hydrobromide [Trintellix] 20 mg PO DAILY Tolterodine Tartrate [Tolterodine Tartrate ER] 4 mg PO DAILY Buspirone HCl 5 mg [Buspar 5 mg] 10 mg PO TID Hydrocodone Bit/Acetaminophen [Red Devil 10-325 Tablet] 1 each PO Q6H PRN PRN Reason: Pain Discontinued Loperamide HCl 2 mg [Imodium 2 mg] 4 mg PO TID Fluconazole 100 mg [Diflucan 100 MG] 100 mg PO DAILY Furosemide 40 mg [Lasix 40 MG] 40 mg PO DAILY Follow up with: JOSE ZAMORANO [Primary Care Provider] - 1 Week
--- NOTE | 2018-02-03 09:38 | CONS ---
CONSULT DATE: 02/02/2018 REASON FOR CONSULT: 1) Evaluation of increase in creatinine. 2) Fluid electrolyte management. HISTORY: Jeanna Woods is a very pleasant 52 year-old lady who is well known to me. The patient has history of chronic kidney disease possibly stage III because of repeated episodes of acute kidney injury, dehydration. The patient has history of ileostomy and high ileostomy output. She has been on IV fluid and infusion two to three times a week along with potassium and magnesium done intravenously two to three times a week. The patient also has history of suprapubic catheter because of bladder surgery. She has stent to right ureter. Her baseline creatinine is around 1.2 to 1.4 mg% depending on her fluid status. The patient presented to [facility] for nausea, abdominal distention. The patient was noted to have small bowel syndrome/obstruction. NG tube was put in. Her creatinine at admission was 1.17. Creatinine was noted to be 1.7 today as a result a renal consultation was called. REVIEW OF SYSTEMS: She had nausea, vomiting, abdominal distention, abdominal pain, colostomy/ileostomy output was still the usual. She denies any dysuria. No chest pain. No fall, trauma, focal weakness, fever, chills, rigor, bleeding from any of the orifices. Decreased urine output which is usual for her given her high colostomy output. All systems were reviewed in detail and pertinent mentioned here and in history of present illness rest were negative. PAST MEDICAL HISTORY: Short gut syndrome with repeated need for parenteral fluids. Chronic diarrhea and ileostomy loss. Chronic kidney disease stage III. History of recurrent urinary tract infections. History of pancreatitis and hepatitis. Migraine headaches. Hypokalemia. Hypomagnesemia. Anemia secondary to chronic kidney disease. Nicotine addiction. History of bladder spasm. PAST SURGICAL HISTORY: 100 cm of small bowel was removed, resection of colon and large bowel. Not a candidate for GATTEA. Bladder surgery and suprapubic catheter placement. Stent to right ureter. Hysterectomy. Cholecystectomy. MEDICATIONS: Reviewed. ALLERGIES: OXYBUTYNIN, AMPICILLIN, DULOXETINE, ERYTHROMYCIN. SOCIAL HISTORY: , lives with her . Smokes three to four cigarettes per day. No alcohol abuse. No drug abuse. FAMILY HISTORY: No history of renal problems in the family. PHYSICAL EXAMINATION: Reveals a lady ill-looking on NG suction in bed. Blood pressure was 171/49, pulse rate 65 to 93, heart rate 80 to 99, temperature max 98.5F, weight 69.4 kg. Oxygenation 92 to 97% on room air. GENERAL: Ill-looking upright in bed with NG tube, drowsy. HEENT: Normocephalic, atraumatic, slightly pale conjunctivae, dry oral mucosa. NECK: Supple. No JVD. CHEST: Clear to auscultation. CVS: S1, S2 normal. ABDOMEN: Soft. No guarding or rigidity. Ileostomy area was clean. Bowel sounds are diminished. NG suction intermittent in place. EXTREMITIES: No cyanosis, clubbing or edema. SKIN: No skin rash. Skin turgor decreased. MUSCULOSKELETAL: No acute joint swelling. NEUROLOGIC: Nonfocal exam, alert, awake, oriented x3. LAB DATA AND TESTS: Labs were reviewed. Pertinent labs were creatinine was 1.7, sodium 138, potassium 4.5. CO2 was 26. Liver function tests were pending. ASSESSMENT: 1) ACUTE KIDNEY INJURY ON CHRONIC KIDNEY DISEASE STAGE III BECAUSE OF FLUID LOSS. The patient has had NG suction and increased ileostomy output. She is getting fluids at only 100 ml/hour negative balance. We will start the patient on Ringer lactate at 150 cc/hour after giving her fluid bolus, monitor creatinine trend in the morning. 2) ABDOMINAL PAIN: NG suction in place. I would recommend the patient to be NPO. Will give rest to the bowel. She is still having significant output. 3) URINARY TRACT INFECTION: The urine culture is negative most likely colonization. No need for any antibiotics. 4) ELEVATED LIVER ENZYME: Continue to follow the trend, etiology unclear. It could be related to her short bowel syndrome. The patient to follow up with Dr. Castle for her liver-related issues. 5) HYPOKALEMIA. 6) HYPOMAGNESEMIA. Potassium levels were fair. Monitor magnesium level. Ringer's lactate has been initiated which should take care of any low potassium or magnesium. Monitor hemoglobin, follow the patient closely.
--- NOTE | 2018-02-05 08:51 | DS ---
DISCHARGE DIAGNOSES: 1) ABDOMINAL PAIN. 2) ACUTE RENAL FAILURE WITH HISTORY OF CHRONIC KIDNEY DISEASE STAGE III. 3) BACTERURIA. 4) ELEVATED LIVER ENZYMES. 5) SHORT BOWEL SYNDROME. 6) SUPRAPUBIC CATHETER IN PLACE. 7) ILEOSTOMY IN PLACE. 8) DIAGNOSIS OF POLYSUBSTANCE USE. DISCHARGE PHYSICAL EXAMINATION: VITALS: Temperature current 98.2F, temperature max 99F, heart rate 76 to 92, respiratory rate 14 to 18, blood pressure 100 to 118 over 57 to 64. Oxygen saturation 93 to 98% on room air. GENERAL: The patient was lying in bed with her daughter and at the bedside in no acute distress. CVS: She had a regular rate and rhythm. No murmurs, gallops or rubs are appreciated. CHEST: Clear to auscultation bilaterally. No crackles or wheezes. ABDOMEN: She had an ileostomy bag in place. Suprapubic catheter with bag in place. Normal bowel sounds. Very mild tenderness in the left lower quadrant. No guarding. No rigidity. EXTREMITIES: No clubbing, cyanosis or edema. SKIN: Warm, dry and intact. HOSPITAL COURSE: 1) ABDOMINAL PAIN: She had an NG tube placed on admission with drainage of over 1800 ml of fluid this was continued at low intermittent suction. On 02/02/2018, the platform operations director doctor was called and gave her a clear liquid diet and changed her PRN Dilaudid to Dilaudid DIESEL BUS MECHANIC early this morning. The nursing notes reported the patient had accidentally pulled out her NG tube. The patient reports she was tolerating a clear liquid diet except she does not like the clear liquids very much. She wanted to try something more solid. She reports she still has some pain but not as bad. The general surgeon saw her and did not feel like they would have anything to offer her here and had wanted her yesterday to transfer to see a surgeon at where she has been seen in the past however the patient declined yesterday according to verbal report from the covering doctor. I discussed with the patient if we do advance her diet we are not going to continue with the Dilaudid DIESEL BUS MECHANIC for pain. She was agreeable to this. Her nurses called my office the morning of 02/03/2018 stating she tolerated the full liquid diet well and was up moving around in her room and wanted to go home. The discharge orders were placed. She is on chronic pain medication by Dr. Sosa it appears from her INSPECT report. I had them add this to her home medication list as it was not on home medication list. 2) ACUTE RENAL FAILURE WITH HISTORY OF CHRONIC KIDNEY DISEASE STAGE III: Dr. Orourke was consulted during her hospitalization. The nurses did assure me that he was aware that she was being discharged and will follow any orders that he had for her at discharge. Her creatinine at the time of discharge was 1.18 and it had been up to 1.7 on 02/02/2018 but she also had NSAID ordered by the emergency room doctor which we discontinued. 3) BACTERURIA: Her UA looked like she may have an infection. However she has a suprapubic catheter so may be colonizing. Urine cultures have been no growth to date so far. 4) ELEVATED LIVER ENZYMES: This continued to be elevated during her hospitalization and it had improved. She will need to follow up with her primary care doctor and/or gastroenterology concerning these. 5) SHORT BOWEL SYNDROME: This is a chronic problem for her. Follow up with her primary care doctor. 6) SUPRAPUBIC CATHETER: No problems with this during her hospitalization. 7) ILEOSTOMY: No problems with this during her hospitalization. 8) POLYSUBSTANCE ABUSE: Her urine tox screen was positive for benzodiazepine and opiates as expected. It was also positive for amphetamines this was discussed with the patient and she reports she had taken Adipex left over from a previous prescriber. I encouraged her to talk with Dr. Haji about her concern about her weight rather than taking old prescriptions. The patient did not have any idea why the barbiturate would be positive on urine tox screen. The patient did deny any illicit drug use. She was discharged to home in fair condition to follow up with her primary care doctor. Please see the discharge order for her discharge medications.
== END 2018-02-03 09:50 | disposition home or self-care (01) ==
LOC: ED 17:54 → MED SURG 21:54
PROVIDERS: ADMIT Internal Medicine; ATTEND Internal Medicine
DX: R10.9 Unspecified abdominal pain (principal); N17.9 Acute kidney failure, unspecified; N18.3 Chronic kidney disease, stage 3 (moderate); R82.71 Bacteriuria; R74.8 Abnormal levels of other serum enzymes; K91.2 Postsurgical malabsorption, not elsewhere classified; Z93.2 Ileostomy status; F19.90 Other psychoactive substance use, unspecified, uncomplicated; F41.9 Anxiety disorder, unspecified; Z90.49 Acquired absence of other specified parts of digestive tract; N39.0 Urinary tract infection, site not specified
CPT/HCPCS: 36000; 36415; 74176; 80053; 80307; 81000; 82150; 83605; 83690; 83735; 85025; 87077; 87086; 87186; 94760; 94770; 96374; 96375; 99285; G0378; J1170; J1642; J1885; J2270; J2405; A9270-GY

== ENCOUNTER 2018-07-17 13:47 | Observation (INO) | payer MEDICARE ==
[2018-07-17] MEDS ORDERED: Zofran 4 MG/2 ML VIAL IV ONE (14:22)
[2018-07-17] MEDS ORDERED: SUBLIMAZE 100 MCG/2 ML IV ONE (14:22)
--- NOTE | 2018-07-17 14:28 | ERPHSYRPT ---
- History of Present Illness Time Seen by Provider: 07/17/18 14:10 Historian: patient Exam Limitations: clinical condition Patient Subjective Stated Complaint: pt here for chest pain substernal radiating to back,pain since friday and was seen by , and was told that she had to much fluid on board, pt gets fluids twice a week for her kidneys and is on fluid restrictions. she states that has not helped her Triage Nursing Assessment: pt alert, resp easy, skin w/d/p. no edema. 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 TOOK NORCO 10/ 325 AT 3 AM TODAY. HAD EMESIS X 2 EPISODES. HAS ASSOCIATED ANTERIOR CHEST PAIN AND UPPER BACK PAIN BETWEEN HER SHOULDER BLADES Timing/Duration: today Activities at Onset: activity Quality: tightness Location: substernal Severity of Pain-Max: moderate Severity of Pain-Current: moderate Modifying Factors: Improves With: exertion Associated Symptoms: shortness of breath Prior Chest Pain/Cardiac Workup: angina Aspirin Treatment Today: no aspirin today Allergies/Adverse Reactions: oxybutynin Allergy (Severe, Verified 07/17/18 14:00) pharyngeal swelling ampicillin Allergy (Mild, Verified 07/17/18 14:00) hives duloxetine [From Cymbalta] Allergy (Mild, Verified 07/17/18 14:00) nausea erythromycin base [Erythromycin Base] Allergy (Mild, Verified 07/17/18 14:00) Hives Home Medications: Diazepam 5 mg [Valium 5 MG] 5 mg PO TID 12/24/16 [History] Doxylamine Succinate [Unisom Sleep Aid] 25 mg PO HS 12/24/16 [History] Pregabalin [Lyrica] 100 mg PO TID 12/24/16 [History] Promethazine HCl 25 mg [Phenergan 25 mg] 25 mg PO BIDPRN PRN 01/07/17 [ History] Midodrine HCl 10 mg PO TID 01/13/17 [History] Amitriptyline HCl 100 mg PO HS 07/04/17 [History] Sodium Chloride 1 gm PO BID 07/23/17 [History] Lipase/Protease/Amylase [Concepcion Teran 24,000 Units Capsule] 6,000 udcap PO TID 08/22 [History] Vortioxetine Hydrobromide [Trintellix] 20 mg PO DAILY 11/11/17 [History] Tolterodine Tartrate [Tolterodine Tartrate ER] 4 mg PO DAILY 01/07/18 [History] Buspirone HCl 5 mg [Buspar 5 mg] 10 mg PO BID 01/09/18 [History] Hydrocodone Bit/Acetaminophen [[place] 10-325 Tablet] 1 each PO Q6H PRN 02/03/18 [ History] Metoclopramide HCl [Reglan] 10 mg PO BID 03/05/18 [History] Furosemide 40 mg [Lasix 40 MG] 40 mg PO DAILY 04/06/18 [History] Ondansetron ODT 4 MG [Zofran Odt 4 mg] 4 mg PO Q6H PRN PRN 04/06/18 [ History] Ciprofloxacin HCl [Cipro] 250 mg PO DAILY 07/06/18 [History] Hx Tetanus, Diphtheria Vaccination/Date Given: Yes Hx Influenza Vaccination/Date Given: Yes Hx Pneumococcal Vaccination/Date Given: Yes Immunizations Up to Date: Yes - Past Medical History Pertinent Past Medical History: Yes Neurological History: Peripheral Neuropathy ENT History: No Pertinent History Cardiac History: No Pertinent History Respiratory History: No Pertinent History Endocrine Medical History: Adrenal Insufficiency, Other Musculoskeletal History: Osteoarthritis GI Medical History: Other History: Renal Disease, Other Psycho-Social History: Anxiety, Depression Female Reproductive Disorders: Other Other Medical History: Pt had surgery for ahdesions in the gut and had complications. She has a colostomy and superpubic cather. kidney insufficency, pancreatitis. Pt gets infusions of minerals. - Past Surgical History Past Surgical History: Yes Neuro Surgical History: No Pertinent History Cardiac: No Pertinent History Respiratory: No Pertinent History Gastrointestinal: Bowel Surgery, Cholecystectomy Genitourinary: Other Musculoskeletal: No Pertinent History Female Surgical History: Hysterectomy Other Surgical History: has 120 cm of small bowel,illiostomy, urostomy following compications after surgery to remove adhesions - Social History Smoking Status: Current every day smoker How long have you smoked: 30years Exposure to second hand smoke: Yes Drug Use: none Patient Lives Alone: No - Female History Hx Last Menstrual Period: post Hx Now: No - Nursing Vital Signs Nursing Vital Signs: Initial Vital Signs Temperature 97.7 F 07/17/18 13:53 Pulse Rate 95 H 07/17/18 13:53 Respiratory Rate 18 07/17/18 13:53 Blood Pressure 110/88 07/17/18 13:53 O2 Sat by Pulse Oximetry 98 07/17/18 13:53 Pain Scale Pain Intensity 7 - Physical Exam General Appearance: no apparent distress, alert Eye Exam: PERRL/EOMI, eyes nml inspection Ears, Nose, Throat Exam: normal ENT inspection, moist mucous membranes Neck Exam: normal inspection, non-tender, supple, full range of motion Respiratory Exam: normal breath sounds, lungs clear, No respiratory distress Cardiovascular Exam: regular rate/rhythm, normal heart sounds Gastrointestinal/Abdomen Exam: soft, normal bowel sounds, tenderness ( PERIUMBILICAL TENDERNESS, THERE IS A RIGHT LOWER QUADRANT ILEOSTOMY AND A SUPRAPUBIC CYSTOSTOMY TUBE), No mass Back Exam: normal inspection, No CVA tenderness, No vertebral tenderness Extremity Exam: normal inspection, normal range of motion Neurologic Exam: alert, oriented x 3, cooperative, normal mood/affect, sensation nml, No motor deficits Skin Exam: normal color, warm, dry SpO2 Interpretation: normal SpO2: 98 Oxygen Delivery: Room Air - Course EKG Interpreted by Me: RATE, Sinus Tach, NORMAL AXIS - Radiology Exams Chest X-ray Interpretation: Discussed w/ radiologist, Negative, No Infiltrates - CT Exams Head CT Interpretation: Discussed w/radiologist, No/Intracranial Hemorrhag Abdomen/Pelvis CT Interpretation: Discussed w/radiologist (STATUS POST SURGICAL CHANGES, NO NEW INTRA-ABDOMINAL OR PELVIC ABNORMALITIES ON THIS NONCONRAST STUDY) Ordered Tests: Active Orders 24 hr Category Date Time Status Bedrest with BRP/BSC ROUTINE Activity 07/17/18 15:59 Ordered Call Admit Doctor for Orders ROUTINE Care 07/17/18 15:59 Ordered Code Status Order ROUTINE Care 07/17/18 15:59 Ordered EKG-ER Only STAT Care 07/17/18 14:22 Active IV Care Q6H Care 07/17/18 15:59 Ordered IV Insertion STAT Care 07/17/18 14:22 Active Implement Chest Pain Pathway ROUTINE Care 07/17/18 15:[address] in Observation ROUTINE Care 07/17/18 15:59 Ordered Celso Maribethe, Apply ROUTINE Care 07/17/18 15:59 Ordered Telemetry ROUTINE Care 07/17/18 15:59 Ordered Vital Signs Q4H Care 07/17/18 15:59 Ordered Weight,Daily 0600 Care 07/17/18 15:59 Ordered NPO except Meds Diet 07/17/18 16:00 Ordered ABDOMEN AND PELVIS W/0 CONTRAS [CT] Stat Exams 07/17/18 14:23 Completed CHEST 1 VIEW (PORTABLE) Stat Exams 07/17/18 14:23 Completed HEAD WITHOUT CONTRAST [CT] Stat Exams 07/17/18 14:52 Completed AMYLASE Stat Lab 07/17/18 14:22 Completed CBC W DIFF Stat Lab 07/17/18 14:22 Completed CMP Stat Lab 07/17/18 14:22 Completed CULTURE,URINE Stat Lab 07/17/18 15:15 Received LIPASE Stat Lab 07/17/18 14:22 Completed LIPID PROFILE AM.LAB Lab 07/18/18 04:00 Ordered Lactic Acid Stat Lab 07/17/18 14:34 Results MAG [MAGNESIUM] Stat Lab 07/17/18 14:47 Completed NT PRO BNP Stat Lab 07/17/18 14:47 Completed PROTIME WITH INR Stat Lab 07/17/18 14:25 Completed TROPONIN Q3H Lab 07/17/18 14:30 Completed TROPONIN Q3H Lab 07/17/18 17:30 Ordered TROPONIN Q3H Lab 07/17/18 20:30 Ordered TROPONIN Q3H Lab 07/17/18 23:30 Ordered TROPONIN Q3H Lab 07/18/18 02:30 Ordered UA W/RFX UR CULTURE Stat Lab 07/17/18 15:15 Completed EKG Q8HX2,QAMX3,PRN RT 07/17/18 15:59 Ordered Pulse Oximetry Q4H RT 07/17/18 15:59 Ordered Transfer Order Routine Transfer 07/17/18 Ordered Medication Summary Discontinued Medications Generic Name Dose Route Start Last Admin Trade Name Freq PRN Reason Stop Dose Admin Aspirin 324 mg 07/17/18 15:31 07/17/18 15:39 Baby Aspirin 81 Mg Chew PO 07/17/18 15:32 324 mg STAT ONE Administration Aspirin Confirm 07/17/18 15:38 Baby Aspirin 81 Mg Chew Administered 07/17/18 15:39 Dose 324 mg .ROUTE .STK-MED ONE Fentanyl Citrate 50 mcg 07/17/18 14:22 07/17/18 15:10 Sublimaze 100 Mcg/2 Ml IV 07/17/18 14:23 50 mcg STAT ONE Administration Fentanyl Citrate Confirm 07/17/18 15:05 Sublimaze 100 Mcg/2 Ml Administered 07/17/18 15:06 Dose 100 mcg .ROUTE .STK-MED ONE Nitroglycerin 1 gm 07/17/18 15:31 07/17/18 15:39 Nitro-Bid 2% Ud Packets TOP 07/17/18 15:32 1 gm STAT ONE Administration Nitroglycerin Confirm 07/17/18 15:38 Nitro-Bid 2% Ud Packets Administered 07/17/18 15:39 Dose 1 gm .ROUTE .STK-MED ONE Ondansetron HCl 4 mg 07/17/18 14:22 07/17/18 15:10 Zofran 4 Mg/2 Ml Vial IV 07/17/18 14:23 4 mg STAT ONE Administration Ondansetron HCl Confirm 07/17/18 15:08 Zofran 4 Mg/2 Ml Vial Administered 07/17/18 15:09 Dose 4 mg .ROUTE .STK-MED ONE Lab/Rad Data: Laboratory Result Diagrams 07/17/18 14:22 07/17/18 14:22 Laboratory Results 07/17/18 07/17/18 07/17/18 Range/Units 15:15 14:47 14:47 WBC (4.0-10.5) K/mm3 RBC (4.1-5.4) M/mm3 Hgb (12.0-16.0) gm/dl Hct (35-47) % MCV (78-100) fl MCH (26-32) pg MCHC (32-36) g/dl RDW (11.5-14.0) % Plt Count (150-450) K/mm3 MPV (6-9.5) fl Gran % (36.0-66.0) % Eos # (Auto) (0-0.5) Absolute Lymphs (auto) (1.0-4.6) Absolute Monos (auto) (0.0-1.3) Lymphocytes % (24.0-44.0) % Monocytes % (0.0-12.0) % Eosinophils % (0.00-5.0) % Basophils % (0.0-0.4) % Absolute Granulocytes (1.4-6.9) Basophils # (0-0.4) PT (9.95-12.35) SECONDS INR (0.8-3.0) Sodium (137-145) mmol/L Potassium (3.5-5.1) mmol/L Chloride (98-107) mmol/L Carbon Dioxide (22-30) mmol/L Anion Gap (5-15) MEQ/L BUN (7-17) mg/dL Creatinine (0.52-1.04) mg/dL Estimated GFR ML/MIN Glucose (74-106) mg/dL Lactic Acid (0.4-2.0) Calcium (8.4-10.2) mg/dL Magnesium 2.5 H (1.6-2.3) mg/dL Total Bilirubin (0.2-1.3) mg/dL AST (14-36) U/L ALT (0-35) U/L Alkaline Phosphatase (38-126) U/L Troponin I (0.000-0.034) ng/mL NT-Pro-B Natriuret Pep 16.1 (0-900) pg/mL Serum Total Protein (6.3-8.2) g/dL Albumin (3.5-5.0) g/dL Amylase (30-110) U/L Lipase (23-300) U/L Urine Color YELLOW (YELLOW) Urine Appearance CLEAR (CLEAR) Urine pH 5.0 (5-6) Ur Specific [place] 1.025 (1.005-1.025) Urine Protein NEGATIVE (Negative) Urine Ketones NEGATIVE (NEGATIVE) Urine Blood MODERATE (0-5) Gregg/ul Urine Nitrite POSITIVE (NEGATIVE) Urine Bilirubin NEGATIVE (NEGATIVE) Urine Urobilinogen NEGATIVE (0-1) mg/dL Ur Leukocyte Esterase MODERATE (NEGATIVE) Urine WBC (Auto) 6-10 (0-5) /HPF Urine RBC (Auto) 3-5 (0-2) /HPF U Hyaline Cast (Auto) 6-10 (0-2) /LPF U Epithel Cells (Auto) NONE (FEW) /HPF Urine Bacteria (Auto) MODERATE (NEGATIVE) /HPF Urine Mucus (Auto) SLIGHT (NEGATIVE) /HPF Urine Culture Reflexed YES (NO) Urine Glucose NEGATIVE (NEGATIVE) mg/dL 07/17/18 07/17/18 07/17/18 Range/Units 14:34 14:30 14:25 WBC (4.0-10.5) K/mm3 RBC (4.1-5.4) M/mm3 Hgb (12.0-16.0) gm/dl Hct (35-47) % MCV (78-100) fl MCH (26-32) pg MCHC (32-36) g/dl RDW (11.5-14.0) % Plt Count (150-450) K/mm3 MPV (6-9.5) fl Gran % (36.0-66.0) % Eos # (Auto) (0-0.5) Absolute Lymphs (auto) (1.0-4.6) Absolute Monos (auto) (0.0-1.3) Lymphocytes % (24.0-44.0) % Monocytes % (0.0-12.0) % Eosinophils % (0.00-5.0) % Basophils % (0.0-0.4) % Absolute Granulocytes (1.4-6.9) Basophils # (0-0.4) PT 10.8 (9.95-12.35) SECONDS INR 0.93 (0.8-3.0) Sodium (137-145) mmol/L Potassium (3.5-5.1) mmol/L Chloride (98-107) mmol/L Carbon Dioxide (22-30) mmol/L Anion Gap (5-15) MEQ/L BUN (7-17) mg/dL Creatinine (0.52-1.04) mg/dL Estimated GFR ML/MIN Glucose (74-106) mg/dL Lactic Acid 2.0 (0.4-2.0) Calcium (8.4-10.2) mg/dL Magnesium (1.6-2.3) mg/dL Total Bilirubin (0.2-1.3) mg/dL AST (14-36) U/L ALT (0-35) U/L Alkaline Phosphatase (38-126) U/L Troponin I < 0.012 (0.000-0.034) ng/mL NT-Pro-B Natriuret Pep (0-900) pg/mL Serum Total Protein (6.3-8.2) g/dL Albumin (3.5-5.0) g/dL Amylase (30-110) U/L Lipase (23-300) U/L Urine Color (YELLOW) Urine Appearance (CLEAR) Urine pH (5-6) Ur Specific [place] (1.005-1.025) Urine Protein (Negative) Urine Ketones (NEGATIVE) Urine Blood (0-5) Gregg/ul Urine Nitrite (NEGATIVE) Urine Bilirubin (NEGATIVE) Urine Urobilinogen (0-1) mg/dL Ur Leukocyte Esterase (NEGATIVE) Urine WBC (Auto) (0-5) /HPF Urine RBC (Auto) (0-2) /HPF U Hyaline Cast (Auto) (0-2) /LPF U Epithel Cells (Auto) (FEW) /HPF Urine Bacteria (Auto) (NEGATIVE) /HPF Urine Mucus (Auto) (NEGATIVE) /HPF Urine Culture Reflexed (NO) Urine Glucose (NEGATIVE) mg/dL 07/17/18 07/17/18 Range/Units 14:22 14:22 WBC 6.1 (4.0-10.5) K/mm3 RBC 4.12 (4.1-5.4) M/mm3 Hgb 12.2 (12.0-16.0) gm/dl Hct 37.8 (35-47) % MCV 91.7 (78-100) fl MCH 29.6 (26-32) pg MCHC 32.3 (32-36) g/dl RDW 14.9 H (11.5-14.0) % Plt Count 270 (150-450) K/mm3 MPV 9.6 H (6-9.5) fl Gran % 52.1 (36.0-66.0) % Eos # (Auto) 0.22 (0-0.5) Absolute Lymphs (auto) 2.27 (1.0-4.6) Absolute Monos (auto) 0.40 (0.0-1.3) Lymphocytes % 37.0 (24.0-44.0) % Monocytes % 6.5 (0.0-12.0) % Eosinophils % 3.6 (0.00-5.0) % Basophils % 0.8 (0.0-0.4) % Absolute Granulocytes 3.19 (1.4-6.9) Basophils # 0.05 (0-0.4) PT (9.95-12.35) SECONDS INR (0.8-3.0) Sodium 138 (137-145) mmol/L Potassium 3.8 (3.5-5.1) mmol/L Chloride 101 (98-107) mmol/L Carbon Dioxide 27 (22-30) mmol/L Anion Gap 13.7 (5-15) MEQ/L BUN 16 (7-17) mg/dL Creatinine 0.94 (0.52-1.04) mg/dL Estimated GFR > 60.0 ML/MIN Glucose 99 (74-106) mg/dL Lactic Acid (0.4-2.0) Calcium 9.0 (8.4-10.2) mg/dL Magnesium (1.6-2.3) mg/dL Total Bilirubin 0.30 (0.2-1.3) mg/dL AST 57 H (14-36) U/L ALT 47 H (0-35) U/L Alkaline Phosphatase 141 H (38-126) U/L Troponin I (0.000-0.034) ng/mL NT-Pro-B Natriuret Pep (0-900) pg/mL Serum Total Protein 7.8 (6.3-8.2) g/dL Albumin 4.4 (3.5-5.0) g/dL Amylase 125 H (30-110) U/L Lipase 277 (23-300) U/L Urine Color (YELLOW) Urine Appearance (CLEAR) Urine pH (5-6) Ur Specific [place] (1.005-1.025) Urine Protein (Negative) Urine Ketones (NEGATIVE) Urine Blood (0-5) Gregg/ul Urine Nitrite (NEGATIVE) Urine Bilirubin (NEGATIVE) Urine Urobilinogen (0-1) mg/dL Ur Leukocyte Esterase (NEGATIVE) Urine WBC (Auto) (0-5) /HPF Urine RBC (Auto) (0-2) /HPF U Hyaline Cast (Auto) (0-2) /LPF U Epithel Cells (Auto) (FEW) /HPF Urine Bacteria (Auto) (NEGATIVE) /HPF Urine Mucus (Auto) (NEGATIVE) /HPF Urine Culture Reflexed (NO) Urine Glucose (NEGATIVE) mg/dL - Progress Progress Note: 12/14/18 15:48 ACCESS [id number] ADMINISTERED ZOFRAN 4 MG, FENTANYL 50MCG IV Discussed with : Adithya (DSCUSSED WITH DR ZAMORANO AT 1545 FOR OBSERVATION) - Departure Time of Disposition: 16:00 Departure Disposition: Observation Clinical Impression: ACUTE CHEST PAIN, CHRONIC PANCREATITIS, URINARY TRACT INFECTION Condition: Stable Critical Care Time: No Referrals: JOSE ZAMORANO [Primary Care Provider] -
[2018-07-17 14:31] LABS: BASOPHIL % 0.8 % (0.0-0.4); Basophil (Absolute #) 0.05 (0-0.4); Eosinophil % 3.6 % (0.00-5.0); Eosinophil (Absolute #) 0.22 (0-0.5); Granulocyte Absolute (ANC) 3.19 (1.4-6.9); Granulocytes % 52.1 % (36.0-66.0); Hematocrit 37.8 % (35-47); Hemoglobin 12.2 gm/dl (12.0-16.0); Lymphocyte (Absolute #) 2.27 (1.0-4.6); Mean Cell Volume 91.7 fl (78-100); Mean Corpuscular Hemoglobin 29.6 pg (26-32); Mean Corpuscular Hgb Concent. 32.3 g/dl (32-36); Mean Platelet Volume 9.6 fl (6-9.5); Monocytes % 6.5 % (0.0-12.0); Platelet Count 270 K/mm3 (150-450); Red Blood Count 4.12 M/mm3 (4.1-5.4); Red Cell Distribution Width 14.9 % (11.5-14.0); White Blood Count 6.1 K/mm3 (4.0-10.5)
[2018-07-17 14:34] LABS: INR 0.93 (0.8-3.0)
[2018-07-17 14:40] LABS: ALBUMIN 4.4 g/dL (3.5-5.0); ALKALINE PHOSPHATASE 141 U/L (38-126); AMYLASE 125 U/L (30-110); ANION GAP 13.7 MEQ/L (5-15); BLOOD UREA NITROGEN 16 mg/dL (7-17); CHLORIDE 101 mmol/L (98-107); Carbon Dioxide 27 mmol/L (22-30); Creatinine 1 0.94 mg/dL (0.52-1.04); Glucose 99 mg/dL (74-106); LIPASE 277 U/L (23-300); Potassium 3.8 mmol/L (3.5-5.1); SGOT/AST 57 U/L (14-36); SGPT/ALT 47 U/L (0-35); SODIUM 138 mmol/L (137-145); Total Protein 7.8 g/dL (6.3-8.2)
--- NOTE | 2018-07-17 15:00 | XRAY ---
Indication: Dyspnea. Comparison: March 26, 2018. Portable chest again demonstrates normal heart and lungs with right-sided Port-A-Cath. Bony thorax intact. No new/acute findings.
[2018-07-17] MEDS ORDERED: SUBLIMAZE 100 MCG/2 ML ONE (15:05)
[2018-07-17] MEDS ORDERED: Zofran 4 MG/2 ML VIAL ONE (15:08)
--- NOTE | 2018-07-17 15:13 | XRAY ---
Indication: Headache. Multiple contiguous axial images obtained through the head without contrast. Comparison: October 04, 2017. Again normal appearing brain parenchyma, ventricles, and bony calvarium. Visualized paranasal sinuses and mastoid air cells are clear. Impression: Stable normal CT head without contrast exam. CT DI 70.91
[2018-07-17 15:18] LABS: Appearance CLEAR (CLEAR); Bilirubin NEGATIVE (NEGATIVE); Blood MODERATE Ery/ul (0-5); Glucose NEGATIVE (NEGATIVE); Ketones NEGATIVE (NEGATIVE); Leukocyte Esterase MODERATE (NEGATIVE); Nitrite POSITIVE (NEGATIVE); Protein,Urine Dip NEGATIVE (Negative); Specific Gravity 1.025 (1.005-1.025); Urobilinogen NEGATIVE mg/dL (0-1)
--- NOTE | 2018-07-17 15:19 | XRAY ---
Indication: Abdomen pain. Multiple contiguous axial images obtained through the abdomen and pelvis without contrast as ordered. Comparison: February 01, 2018. Lung bases again demonstrates minimal bibasilar fibrosis/scarring. No infiltrate or effusion. Heart is not enlarged. Noncontrasted stomach and bowel loops appear nonobstructed. Again colectomy with right lower quadrant ostomy, suprapubic catheter, cholecystectomy, and hysterectomy. No free fluid/air. Stable previous CT proven right lobe hepatic hemangioma. Remaining liver, pancreas, spleen, adrenal glands, kidneys, ureters, and aorta appear unremarkable for noncontrast exam. Osseous structures intact with healed left pubic symphysis fracture. No ventral or inguinal hernias. Impression: 1. Stable postsurgical changes and hepatic hemangioma. 2. No new intra-abdominal or pelvic abnormalities on this noncontrast exam. CT DI 16.45
[2018-07-17] MEDS ORDERED: NITRO-BID 2% UD PACKETS TOP ONE (15:31)
[2018-07-17] MEDS ORDERED: BABY ASPIRIN 81 MG CHEW PO ONE (15:31)
[2018-07-17] MEDS ORDERED: NITRO-BID 2% UD PACKETS ONE (15:38)
[2018-07-17] MEDS ORDERED: BABY ASPIRIN 81 MG CHEW ONE (15:38)
[2018-07-17] MEDS ORDERED: MILK OF MAGNESIA 30 ML PO PRN (15:59)
[2018-07-17] MEDS ORDERED: MAALOX ES 30 ML UNIT DOSE PO PRN (15:59)
[2018-07-17] MEDS ORDERED: TYLENOL 325 MG PO PRN (15:59)
[2018-07-17] MEDS ORDERED: Nitrostat 0.4 MG Tablet SL PRN (15:59)
[2018-07-17] MEDS ORDERED: Senokot-S Tablet PO PRN (15:59)
[2018-07-17] MEDS ORDERED: ZOFRAN ODT 4 MG PO PRN (16:03)
[2018-07-17] MEDS ORDERED: Sodium Chloride 0.9% 10 ML FLUSH Syringe IV PRN (16:37)
[2018-07-17] MEDS ORDERED: PHENERGAN 25 MG PO PRN (17:46)
[2018-07-17] MEDS ORDERED: MEDICATION INTERVENTION PO SCH (18:00)
[2018-07-17] MEDS: MORPHINE SULFATE 10 MG/ML IV PRN ×2 (18:09→22:28)
[2018-07-17] MEDS: PANCRELIPASE DR 5,000 UNIT CAP PO SCH (18:22)
[2018-07-17] MEDS: Valium 5 MG PO SCH (19:16)
[2018-07-17] MEDS: Zofran 4 MG/2 ML VIAL IV PRN (20:09)
[2018-07-17] MEDS: LYRICA 100MG PO SCH (21:47)
[2018-07-17] MEDS: PROAMATINE 5 MG PO SCH (21:47)
[2018-07-17] MEDS: BUSPAR 5 MG PO SCH (21:47)
[2018-07-17] MEDS: Reglan 10 MG PO SCH (21:48)
[2018-07-17] MEDS ORDERED: LIPASE PO SCH (22:00)
[2018-07-17] MEDS ORDERED: DOXYLAMINE SUCCINATE 25 MG PO SCH (22:00)
[2018-07-17] MEDS ORDERED: SODIUM CHLORIDE 1 GM PO SCH (22:00)
[2018-07-17] MEDS ORDERED: PROTEASE PO SCH (22:00)
[2018-07-17] MEDS ORDERED: AMYLASE PO SCH (22:00)
[2018-07-17] MEDS ORDERED: [UNRECOGNIZED DRUG - OTHER] PO SCH (22:00)
[2018-07-17] MEDS ORDERED: [UNRECOGNIZED DRUG - OTHER] PO SCH (22:00)
[2018-07-17] MEDS: Sodium Chloride 0.9% 10 ML FLUSH Syringe IV SCH (22:25)
[2018-07-18] MEDS: MORPHINE SULFATE 10 MG/ML IV PRN ×2 (02:58→07:35)
[2018-07-18 03:34] LABS: Risk Ratio 3.2
[2018-07-18 04:06] LABS: Hematocrit 36.3 % (35-47); Hemoglobin 11.5 gm/dl (12.0-16.0); Mean Cell Volume 93.8 fl (78-100); Mean Corpuscular Hemoglobin 29.7 pg (26-32); Mean Corpuscular Hgb Concent. 31.7 g/dl (32-36); Mean Platelet Volume 9.9 fl (6-9.5); Platelet Count 256 K/mm3 (150-450); Red Blood Count 3.87 M/mm3 (4.1-5.4); Red Cell Distribution Width 14.9 % (11.5-14.0); White Blood Count 5.6 K/mm3 (4.0-10.5)
[2018-07-18 04:11] LABS: ALBUMIN 4.1 g/dL (3.5-5.0); ALKALINE PHOSPHATASE 132 U/L (38-126); ANION GAP 11.8 MEQ/L (5-15); BLOOD UREA NITROGEN 13 mg/dL (7-17); CHLORIDE 101 mmol/L (98-107); Calcium 8.8 mg/dL (8.4-10.2); Carbon Dioxide 29 mmol/L (22-30); Glucose 92 mg/dL (74-106); Potassium 3.8 mmol/L (3.5-5.1); SGOT/AST 110 U/L (14-36); SGPT/ALT 72 U/L (0-35); SODIUM 137 mmol/L (137-145); Total Protein 7.2 g/dL (6.3-8.2)
[2018-07-18] MEDS: Valium 5 MG PO SCH ×3 (04:34→18:02)
[2018-07-18] MEDS: Sodium Chloride 0.9% 10 ML FLUSH Syringe IV SCH ×2 (04:35→12:21)
[2018-07-18] MEDS: Ecotrin 325 MG PO SCH (08:51)
[2018-07-18] MEDS: Lasix 40 MG PO SCH (08:51)
[2018-07-18] MEDS: LYRICA 100MG PO SCH ×3 (08:51→21:09)
[2018-07-18] MEDS: BUSPAR 5 MG PO SCH ×2 (08:51→21:09)
[2018-07-18] MEDS: PROAMATINE 5 MG PO SCH ×3 (08:52→21:14)
[2018-07-18] MEDS: Reglan 10 MG PO SCH ×2 (08:52→21:16)
[2018-07-18] MEDS ORDERED: DILAUDID 2 MG INJECTION IV STA (09:03)
[2018-07-18] MEDS: PANCRELIPASE DR 5,000 UNIT CAP PO SCH ×3 (09:07→18:02)
[2018-07-18] MEDS ORDERED: Cipro 500 MG PO SCH (10:00)
[2018-07-18] MEDS ORDERED: CIPROFLOXACIN HCL 250 MG PO SCH (10:00)
[2018-07-18] MEDS ORDERED: VORTIOXETINE HYDROBROMIDE 20 MG PO SCH (10:00)
[2018-07-18] MEDS ORDERED: NON-FORMULARY ITEM (Tolterodine Tartrate [Tolterodine Tartrate Er] 4 MG) PO SCH (10:00)
[2018-07-18] MEDS: ROCEPHIN 1 Gm-D5w 50 ml Bag** 1 G/50 ML IVPB IV SCH (12:21)
--- NOTE | 2018-07-18 12:51 | PCM.HP ---
History of Present Illness - Chief Complaint Chief Complaint: acute chest pain, abd pain, chronic uti History of Present Illness: is a 53 year old female pt of mine from [facility] with extensive PMHx including chronic renal failure, Crohn's disease with colon resection and ileostomy, suprapubic catheter, and hx pancreatitis. She gets fluids several times a week under the orders of Dr. Orourke. She had been feeling ill for the past week, inlcuding SORIANO, LUQ/epigastric pain, and CP and thought that she was getting too much fluid (felt "up to here" (indicates her neck) and feeling like she had crackles in the lungs) so he had decreased her fluids to 250cc twice weekly. Yesterday she refused the balance of her fluids and came to see me in office. She also c/o chest pain that radiated to the back, 9/10 , worse after getting fluids, with SOB, diaphoresis, and palpitations and tachycardia. In the ER her EKG was non acute. Troponin negative. BNP 16.1. CT abd/pelvis with no acute changes. CT head non acute. Amylase very minimally elevated at 125. lipase wnl. UA with positive nitrites; pt is on cipro chronically for UTI prophylaxis and chronically has abnormalities on UA. She did have positive culture this morning and was just started on IV rocephin. Pt's renal function was good, eGFR > 60. K+ 3.8. Mg 2.1. She was admitted with IV heplocked and IV morphine for pain. This morning her SORIANO was worse; she does want to eat so will advance diet and change the IV morphine to dilaudid. - Review of Systems Cardiac: Chest Pain, Palpitations Abdominal/Gastrointestinal: Abdominal Pain, Other (increased ostomy output recently) Genitourinary Symptoms: Other (some decreased urine output recently) Musculoskeletal: Back Pain Neurological: Headache Medications & Allergies Home Medications: Home Medication List Diazepam 5 mg [Valium 5 MG] 5 mg PO TID 12/24/16 [History Confirmed ] Doxylamine Succinate [Unisom Sleep Aid] 25 mg PO HS 12/24/16 [History Confirmed 07/17/18] Pregabalin [Lyrica] 100 mg PO TID 12/24/16 [History Confirmed 07/17/18] Promethazine HCl 25 mg [Phenergan 25 mg] 25 mg PO BIDPRN PRN 01/07/17 [ History Confirmed 07/17/18] Midodrine HCl 10 mg PO TID 01/13/17 [History Confirmed 07/17/18] Amitriptyline HCl 100 mg PO HS 07/04/17 [History Confirmed 07/17/18] Sodium Chloride 1 gm PO BID 07/23/17 [History Confirmed 07/17/18] Heparin Flush 500 units/5 ml [Heparin Lock Flush 100 Units/ml 5ml Syringe] 500 units PORT FLUSH PRN PRN disp.syrin 08/10/17 [Rx Confirmed 07/17/18] Lipase/Protease/Amylase [Concepcion Teran 24,000 Units Capsule] 6,000 udcap PO TID 08/22 [History Confirmed 07/17/18] Vortioxetine Hydrobromide [Trintellix] 20 mg PO DAILY 11/11/17 [History Confirmed 07/17/18] Tolterodine Tartrate [Tolterodine Tartrate ER] 4 mg PO DAILY 01/07/18 [History Confirmed 07/17/18] Buspirone HCl 5 mg [Buspar 5 mg] 10 mg PO BID 01/09/18 [History Confirmed 07/17/18] Hydrocodone Bit/Acetaminophen [Weldon 10-325 Tablet] 1 each PO Q6H PRN 02/03/18 [ History Confirmed 07/17/18] Metoclopramide HCl [Reglan] 10 mg PO BID 03/05/18 [History Confirmed 07/17/18] Furosemide 40 mg [Lasix 40 MG] 40 mg PO DAILY 04/06/18 [History Confirmed 07/17/18] Ondansetron ODT 4 MG [Zofran Odt 4 mg] 4 mg PO Q6H PRN PRN 04/06/18 [ History Confirmed 07/17/18] Ciprofloxacin HCl [Cipro] 250 mg PO DAILY 07/06/18 [History Confirmed 07/17/18] Allergies/Adverse Reactions: Allergies Allergy/AdvReac Type Severity Reaction Status Date / Time oxybutynin Allergy Severe Verified 07/17/18 14:00 ampicillin Allergy Mild Verified 07/17/18 14:00 duloxetine [From Cymbalta] Allergy Mild Verified 07/17/18 14:00 erythromycin base Allergy Mild Verified 07/17/18 14:00 [Erythromycin Base] - Past Medical History Past Medical History: Yes Neurological History: Peripheral Neuropathy ENT History: No Pertinent History Cardiac History: No Pertinent History Respiratory History: No Pertinent History Endocrine Medical History: Adrenal Insufficiency, Other Musculoskelatal History: Osteoarthritis GI Medical History: Other History: Renal Disease, Other Pyscho-Social History: Anxiety, Depression Reproductive Disorders: Other Comment: Pt had surgery for ahdesions in the gut and had complications. She has a colostomy and superpubic cather. kidney insufficency, pancreatitis. Pt gets infusions with potassium and magnesium - Female History Hx Last Menstrual Period: post Are you now?: No - Past Surgical History Past Surgical History: Yes Neuro Surgical History: No Pertinent History Cardiac History: No Pertinent History Respiratory Surgery: No Pertinent History GI Surgical History: Bowel Surgery, Cholecystectomy Genitourinary Surgical Hx: Other Musculskeletal Surgical Hx: No Pertinent History Female Surgical History: Hysterectomy Other Surgical History: has 120 cm of small bowel,illiostomy, urostomy following compications after surgery to remove adhesions - Social History Smoking Status: Current every day smoker How long have you smoked: 20 years Exposure to second hand smoke: Yes Alcohol: None Drug Use: none - Physical Exam Vital Signs: Vital Signs - 24 hr Temp Pulse Pulse Resp BP Pulse Ox 07/18/18 11:36 97.8 F 79 18 115/68 93 L 07/18/18 08:00 98 F 80 18 107/72 94 L 07/18/18 04:00 97.9 F 80 17 103/58 95 07/17/18 23:42 97.9 F 78 19 108/65 95 07/17/18 22:10 96 07/17/18 19:32 97.9 F 86 17 126/68 95 07/17/18 17:14 95 07/17/18 16:39 98.2 F 79 22 125/82 97 07/17/18 16:30 98.2 F 79 22 125/82 97 07/17/18 16:08 98 07/17/18 15:59 97 07/17/18 15:19 94 H 18 113/77 95 07/17/18 13:53 97.7 F 100 H 95 H 18 110/88 98 General Appearance: moderate distress (wet washrag to head, room is dark, but pt is conversant and cooperative), alert Neurologic Exam: oriented x 3, cooperative Eye Exam: eyes nml inspection Ears, Nose, Throat Exam: moist mucous membranes Neck Exam: normal inspection, non-tender, No lymphadenopathy Respiratory Exam: normal breath sounds, lungs clear, No crackles/rales, No rhonchi, No wheezing Cardiovascular Exam: regular rate/rhythm, normal heart sounds, No murmur Gastrointestinal/Abdomen Exam: soft, tenderness (diffuse; more so in epigastrum and LUQ), guarding (mild), No normal bowel sounds (hypoactive but present), No distention, No mass, No rebound Back Exam: normal inspection, No CVA tenderness, No rash Extremity Exam: normal inspection, No pedal edema, No swelling Results - Labs Lab/Micro Results: Lab Results-Last 24 Hours 07/17/18 07/17/18 07/17/18 Range/Units 14:22 14:22 14:25 WBC 6.1 (4.0-10.5) K/mm3 RBC 4.12 (4.1-5.4) M/mm3 Hgb 12.2 (12.0-16.0) gm/dl Hct 37.8 (35-47) % MCV 91.7 (78-100) fl MCH 29.6 (26-32) pg MCHC 32.3 (32-36) g/dl RDW 14.9 H (11.5-14.0) % Plt Count 270 (150-450) K/mm3 MPV 9.6 H (6-9.5) fl Gran % 52.1 (36.0-66.0) % Eos # (Auto) 0.22 (0-0.5) Absolute Lymphs (auto) 2.27 (1.0-4.6) Absolute Monos (auto) 0.40 (0.0-1.3) Lymphocytes % 37.0 (24.0-44.0) % Monocytes % 6.5 (0.0-12.0) % Eosinophils % 3.6 (0.00-5.0) % Basophils % 0.8 (0.0-0.4) % Absolute Granulocytes 3.19 (1.4-6.9) Basophils # 0.05 (0-0.4) PT 10.8 (9.95-12.35) SECONDS INR 0.93 (0.8-3.0) Sodium 138 (137-145) mmol/L Potassium 3.8 (3.5-5.1) mmol/L Chloride 101 (98-107) mmol/L Carbon Dioxide 27 (22-30) mmol/L Anion Gap 13.7 (5-15) MEQ/L BUN 16 (7-17) mg/dL Creatinine 0.94 (0.52-1.04) mg/dL Estimated GFR > 60.0 ML/MIN Glucose 99 (74-106) mg/dL Lactic Acid (0.4-2.0) Calcium 9.0 (8.4-10.2) mg/dL Magnesium (1.6-2.3) mg/dL Total Bilirubin 0.30 (0.2-1.3) mg/dL AST 57 H (14-36) U/L ALT 47 H (0-35) U/L Alkaline Phosphatase 141 H (38-126) U/L Troponin I (0.000-0.034) ng/mL NT-Pro-B Natriuret Pep (0-900) pg/mL Serum Total Protein 7.8 (6.3-8.2) g/dL Albumin 4.4 (3.5-5.0) g/dL Triglycerides (30-150) mg/dL Cholesterol (50-200) mg/dL LDL Cholesterol (30-100) mg/dL HDL Cholesterol (40-60) mg/dL Heart Disease Risk Ratio Amylase 125 H (30-110) U/L Lipase 277 (23-300) U/L Urine Color (YELLOW) Urine Appearance (CLEAR) Urine pH (5-6) Ur Specific Thatcher (1.005-1.025) Urine Protein (Negative) Urine Ketones (NEGATIVE) Urine Blood (0-5) Gregg/ul Urine Nitrite (NEGATIVE) Urine Bilirubin (NEGATIVE) Urine Urobilinogen (0-1) mg/dL Ur Leukocyte Esterase (NEGATIVE) Urine WBC (Auto) (0-5) /HPF Urine RBC (Auto) (0-2) /HPF U Hyaline Cast (Auto) (0-2) /LPF U Epithel Cells (Auto) (FEW) /HPF Urine Bacteria (Auto) (NEGATIVE) /HPF Urine Mucus (Auto) (NEGATIVE) /HPF Urine Culture Reflexed (NO) Urine Glucose (NEGATIVE) mg/dL 07/17/18 07/17/18 07/17/18 Range/Units 14:30 14:34 14:47 WBC (4.0-10.5) K/mm3 RBC (4.1-5.4) M/mm3 Hgb (12.0-16.0) gm/dl Hct (35-47) % MCV (78-100) fl MCH (26-32) pg MCHC (32-36) g/dl RDW (11.5-14.0) % Plt Count (150-450) K/mm3 MPV (6-9.5) fl Gran % (36.0-66.0) % Eos # (Auto) (0-0.5) Absolute Lymphs (auto) (1.0-4.6) Absolute Monos (auto) (0.0-1.3) Lymphocytes % (24.0-44.0) % Monocytes % (0.0-12.0) % Eosinophils % (0.00-5.0) % Basophils % (0.0-0.4) % Absolute Granulocytes (1.4-6.9) Basophils # (0-0.4) PT (9.95-12.35) SECONDS INR (0.8-3.0) Sodium (137-145) mmol/L Potassium (3.5-5.1) mmol/L Chloride (98-107) mmol/L Carbon Dioxide (22-30) mmol/L Anion Gap (5-15) MEQ/L BUN (7-17) mg/dL Creatinine (0.52-1.04) mg/dL Estimated GFR ML/MIN Glucose (74-106) mg/dL Lactic Acid 2.0 (0.4-2.0) Calcium (8.4-10.2) mg/dL Magnesium (1.6-2.3) mg/dL Total Bilirubin (0.2-1.3) mg/dL AST (14-36) U/L ALT (0-35) U/L Alkaline Phosphatase (38-126) U/L Troponin I < 0.012 (0.000-0.034) ng/mL NT-Pro-B Natriuret Pep 16.1 (0-900) pg/mL Serum Total Protein (6.3-8.2) g/dL Albumin (3.5-5.0) g/dL Triglycerides (30-150) mg/dL Cholesterol (50-200) mg/dL LDL Cholesterol (30-100) mg/dL HDL Cholesterol (40-60) mg/dL Heart Disease Risk Ratio Amylase (30-110) U/L Lipase (23-300) U/L Urine Color (YELLOW) Urine Appearance (CLEAR) Urine pH (5-6) Ur Specific Thatcher (1.005-1.025) Urine Protein (Negative) Urine Ketones (NEGATIVE) Urine Blood (0-5) Gregg/ul Urine Nitrite (NEGATIVE) Urine Bilirubin (NEGATIVE) Urine Urobilinogen (0-1) mg/dL Ur Leukocyte Esterase (NEGATIVE) Urine WBC (Auto) (0-5) /HPF Urine RBC (Auto) (0-2) /HPF U Hyaline Cast (Auto) (0-2) /LPF U Epithel Cells (Auto) (FEW) /HPF Urine Bacteria (Auto) (NEGATIVE) /HPF Urine Mucus (Auto) (NEGATIVE) /HPF Urine Culture Reflexed (NO) Urine Glucose (NEGATIVE) mg/dL 07/17/18 07/17/18 07/17/18 Range/Units 14:47 15:15 17:30 WBC (4.0-10.5) K/mm3 RBC (4.1-5.4) M/mm3 Hgb (12.0-16.0) gm/dl Hct (35-47) % MCV (78-100) fl MCH (26-32) pg MCHC (32-36) g/dl RDW (11.5-14.0) % Plt Count (150-450) K/mm3 MPV (6-9.5) fl Gran % (36.0-66.0) % Eos # (Auto) (0-0.5) Absolute Lymphs (auto) (1.0-4.6) Absolute Monos (auto) (0.0-1.3) Lymphocytes % (24.0-44.0) % Monocytes % (0.0-12.0) % Eosinophils % (0.00-5.0) % Basophils % (0.0-0.4) % Absolute Granulocytes (1.4-6.9) Basophils # (0-0.4) PT (9.95-12.35) SECONDS INR (0.8-3.0) Sodium (137-145) mmol/L Potassium (3.5-5.1) mmol/L Chloride (98-107) mmol/L Carbon Dioxide (22-30) mmol/L Anion Gap (5-15) MEQ/L BUN (7-17) mg/dL Creatinine (0.52-1.04) mg/dL Estimated GFR ML/MIN Glucose (74-106) mg/dL Lactic Acid (0.4-2.0) Calcium (8.4-10.2) mg/dL Magnesium 2.5 H (1.6-2.3) mg/dL Total Bilirubin (0.2-1.3) mg/dL AST (14-36) U/L ALT (0-35) U/L Alkaline Phosphatase (38-126) U/L Troponin I < 0.012 (0.000-0.034) ng/mL NT-Pro-B Natriuret Pep (0-900) pg/mL Serum Total Protein (6.3-8.2) g/dL Albumin (3.5-5.0) g/dL Triglycerides (30-150) mg/dL Cholesterol (50-200) mg/dL LDL Cholesterol (30-100) mg/dL HDL Cholesterol (40-60) mg/dL Heart Disease Risk Ratio Amylase (30-110) U/L Lipase (23-300) U/L Urine Color YELLOW (YELLOW) Urine Appearance CLEAR (CLEAR) Urine pH 5.0 (5-6) Ur Specific Thatcher 1.025 (1.005-1.025) Urine Protein NEGATIVE (Negative) Urine Ketones NEGATIVE (NEGATIVE) Urine Blood MODERATE (0-5) Gregg/ul Urine Nitrite POSITIVE (NEGATIVE) Urine Bilirubin NEGATIVE (NEGATIVE) Urine Urobilinogen NEGATIVE (0-1) mg/dL Ur Leukocyte Esterase MODERATE (NEGATIVE) Urine WBC (Auto) 6-10 (0-5) /HPF Urine RBC (Auto) 3-5 (0-2) /HPF U Hyaline Cast (Auto) 6-10 (0-2) /LPF U Epithel Cells (Auto) NONE (FEW) /HPF Urine Bacteria (Auto) MODERATE (NEGATIVE) /HPF Urine Mucus (Auto) SLIGHT (NEGATIVE) /HPF Urine Culture Reflexed YES (NO) Urine Glucose NEGATIVE (NEGATIVE) mg/dL 07/17/18 07/17/18 07/18/18 Range/Units 20:46 23:40 02:45 WBC 5.6 (4.0-10.5) K/mm3 RBC 3.87 L (4.1-5.4) M/mm3 Hgb 11.5 L (12.0-16.0) gm/dl Hct 36.3 (35-47) % MCV 93.8 (78-100) fl MCH 29.7 (26-32) pg MCHC 31.7 L (32-36) g/dl RDW 14.9 H (11.5-14.0) % Plt Count 256 (150-450) K/mm3 MPV 9.9 H (6-9.5) fl Gran % (36.0-66.0) % Eos # (Auto) (0-0.5) Absolute Lymphs (auto) (1.0-4.6) Absolute Monos (auto) (0.0-1.3) Lymphocytes % (24.0-44.0) % Monocytes % (0.0-12.0) % Eosinophils % (0.00-5.0) % Basophils % (0.0-0.4) % Absolute Granulocytes (1.4-6.9) Basophils # (0-0.4) PT (9.95-12.35) SECONDS INR (0.8-3.0) Sodium (137-145) mmol/L Potassium (3.5-5.1) mmol/L Chloride (98-107) mmol/L Carbon Dioxide (22-30) mmol/L Anion Gap (5-15) MEQ/L BUN (7-17) mg/dL Creatinine (0.52-1.04) mg/dL Estimated GFR ML/MIN Glucose (74-106) mg/dL Lactic Acid (0.4-2.0) Calcium (8.4-10.2) mg/dL Magnesium (1.6-2.3) mg/dL Total Bilirubin (0.2-1.3) mg/dL AST (14-36) U/L ALT (0-35) U/L Alkaline Phosphatase (38-126) U/L Troponin I < 0.012 < 0.012 (0.000-0.034) ng/mL NT-Pro-B Natriuret Pep (0-900) pg/mL Serum Total Protein (6.3-8.2) g/dL Albumin (3.5-5.0) g/dL Triglycerides (30-150) mg/dL Cholesterol (50-200) mg/dL LDL Cholesterol (30-100) mg/dL HDL Cholesterol (40-60) mg/dL Heart Disease Risk Ratio Amylase (30-110) U/L Lipase (23-300) U/L Urine Color (YELLOW) Urine Appearance (CLEAR) Urine pH (5-6) Ur Specific Thatcher (1.005-1.025) Urine Protein (Negative) Urine Ketones (NEGATIVE) Urine Blood (0-5) Gregg/ul Urine Nitrite (NEGATIVE) Urine Bilirubin (NEGATIVE) Urine Urobilinogen (0-1) mg/dL Ur Leukocyte Esterase (NEGATIVE) Urine WBC (Auto) (0-5) /HPF Urine RBC (Auto) (0-2) /HPF U Hyaline Cast (Auto) (0-2) /LPF U Epithel Cells (Auto) (FEW) /HPF Urine Bacteria (Auto) (NEGATIVE) /HPF Urine Mucus (Auto) (NEGATIVE) /HPF Urine Culture Reflexed (NO) Urine Glucose (NEGATIVE) mg/dL 07/18/18 07/18/18 07/18/18 Range/Units 02:45 02:52 02:52 WBC (4.0-10.5) K/mm3 RBC (4.1-5.4) M/mm3 Hgb (12.0-16.0) gm/dl Hct (35-47) % MCV (78-100) fl MCH (26-32) pg MCHC (32-36) g/dl RDW (11.5-14.0) % Plt Count (150-450) K/mm3 MPV (6-9.5) fl Gran % (36.0-66.0) % Eos # (Auto) (0-0.5) Absolute Lymphs (auto) (1.0-4.6) Absolute Monos (auto) (0.0-1.3) Lymphocytes % (24.0-44.0) % Monocytes % (0.0-12.0) % Eosinophils % (0.00-5.0) % Basophils % (0.0-0.4) % Absolute Granulocytes (1.4-6.9) Basophils # (0-0.4) PT (9.95-12.35) SECONDS INR (0.8-3.0) Sodium 137 (137-145) mmol/L Potassium 3.8 (3.5-5.1) mmol/L Chloride 101 (98-107) mmol/L Carbon Dioxide 29 (22-30) mmol/L Anion Gap 11.8 (5-15) MEQ/L BUN 13 (7-17) mg/dL Creatinine 0.90 (0.52-1.04) mg/dL Estimated GFR > 60.0 ML/MIN Glucose 92 (74-106) mg/dL Lactic Acid (0.4-2.0) Calcium 8.8 (8.4-10.2) mg/dL Magnesium 2.1 (1.6-2.3) mg/dL Total Bilirubin 0.50 (0.2-1.3) mg/dL AST 110 H (14-36) U/L ALT 72 H (0-35) U/L Alkaline Phosphatase 132 H (38-126) U/L Troponin I < 0.012 (0.000-0.034) ng/mL NT-Pro-B Natriuret Pep (0-900) pg/mL Serum Total Protein 7.2 (6.3-8.2) g/dL Albumin 4.1 (3.5-5.0) g/dL Triglycerides 312 H (30-150) mg/dL Cholesterol 208 H (50-200) mg/dL LDL Cholesterol 77 (30-100) mg/dL HDL Cholesterol 65 H (40-60) mg/dL Heart Disease Risk Ratio 3.2 Amylase (30-110) U/L Lipase (23-300) U/L Urine Color (YELLOW) Urine Appearance (CLEAR) Urine pH (5-6) Ur Specific Thatcher (1.005-1.025) Urine Protein (Negative) Urine Ketones (NEGATIVE) Urine Blood (0-5) Gregg/ul Urine Nitrite (NEGATIVE) Urine Bilirubin (NEGATIVE) Urine Urobilinogen (0-1) mg/dL Ur Leukocyte Esterase (NEGATIVE) Urine WBC (Auto) (0-5) /HPF Urine RBC (Auto) (0-2) /HPF U Hyaline Cast (Auto) (0-2) /LPF U Epithel Cells (Auto) (FEW) /HPF Urine Bacteria (Auto) (NEGATIVE) /HPF Urine Mucus (Auto) (NEGATIVE) /HPF Urine Culture Reflexed (NO) Urine Glucose (NEGATIVE) mg/dL Microbiology 07/17/18 15:15 Urine Culture - Preliminary Clean Catch Midstream GRAM POSITIVE ID AND SENSITIVITY PENDING - Radiology Impressions Radiology Exams & Impressions: Radiology Procedures Category Date Time Status ABDOMEN AND PELVIS W/0 CONTRAS [CT] Stat Exams 07/17/18 14:23 Completed CHEST 1 VIEW (PORTABLE) Stat Exams 07/17/18 14:23 Completed HEAD WITHOUT CONTRAST [CT] Stat Exams 07/17/18 14:52 Completed - Other Procedures and Tests Respiratory Therapy 07/19/18 05:00 EKG ONCE 07/20/18 05:00 EKG ONCE Assessment/Plan (1) Abdominal pain Current Visit: No Status: Acute Onset Date: ~07/17/18 Qualifiers: Abdominal location: generalized Qualified Code(s): R10.84 - Generalized abdominal pain Assessment & Plan: Could be related to UTI. Will go ahead and advance diet with CT abd/pelvis non acute. Code(s): R10.9 - UNSPECIFIED ABDOMINAL PAIN (2) UTI (urinary tract infection) Current Visit: No Status: Acute Onset Date: ~07/17/18 Qualifiers: Urinary tract infection type: acute cystitis Hematuria presence: without hematuria Qualified Code(s): N30.00 - Acute cystitis without hematuria Assessment & Plan: on rocephin day #1. Preliminary culture positive for G+ organism. Code(s): N39.0 - URINARY TRACT INFECTION, SITE NOT SPECIFIED (3) Chest pain Current Visit: No Status: Acute Onset Date: ~07/17/18 Qualifiers: Chest pain type: unspecified Qualified Code(s): R07.9 - Chest pain, unspecified Assessment & Plan: Troponins neg x 5. Code(s): R07.9 - CHEST PAIN, UNSPECIFIED (4) Chronic kidney disease (CKD) stage G3a/A1, moderately decreased glomerular filtration rate (GFR) between 45-59 mL/min/1.73 square meter and albuminuria creatinine ratio less than 30 mg/g Current Visit: No Status: Chronic Assessment & Plan: Renal function has been looking good with her frequent IVF admissions. Will go ahead and start low level IV fluid here and check electrolytes daily. Code(s): N18.3 - CHRONIC KIDNEY DISEASE, STAGE 3 (MODERATE) (5) Crohns disease Current Visit: No Status: Chronic Qualifiers: Gastrointestinal tract location: unspecified location Digestive disease complication type: other complication Qualified Code(s): K50.918 - Crohn's disease, unspecified, with other complication Code(s): K50.90 - CROHN'S DISEASE, UNSPECIFIED, WITHOUT COMPLICATIONS (6) Elevated liver enzymes Current Visit: No Status: Chronic Assessment & Plan: somewhat higher today. Code(s): R74.8 - ABNORMAL LEVELS OF OTHER SERUM ENZYMES (7) Suprapubic catheter Current Visit: No Status: Chronic Code(s): Z93.59 - OTHER CYSTOSTOMY STATUS
[2018-07-18] MEDS: DILAUDID 2 MG INJECTION IV PRN ×3 (13:00→21:18)
[2018-07-18] MEDS: Lactated Ringers 1,000 ML IV SCH (13:32)
[2018-07-18] MEDS: Zofran 4 MG/2 ML VIAL IV PRN (17:17)
[2018-07-19] MEDS: Lactated Ringers 1,000 ML IV SCH (03:40)
[2018-07-19] MEDS: DILAUDID 2 MG INJECTION IV PRN ×3 (03:41→12:24)
[2018-07-19] MEDS: Valium 5 MG PO SCH ×2 (05:10→12:24)
[2018-07-19] MEDS: Sodium Chloride 0.9% 10 ML FLUSH Syringe IV SCH ×2 (05:18)
[2018-07-19 05:29] LABS: Hematocrit 34.3 % (35-47); Hemoglobin 10.8 gm/dl (12.0-16.0); Mean Cell Volume 94.5 fl (78-100); Mean Corpuscular Hgb Concent. 31.5 g/dl (32-36); Mean Platelet Volume 9.5 fl (6-9.5); Platelet Count 240 K/mm3 (150-450); Red Blood Count 3.63 M/mm3 (4.1-5.4); Red Cell Distribution Width 14.7 % (11.5-14.0); White Blood Count 4.8 K/mm3 (4.0-10.5)
[2018-07-19 05:30] LABS: Mean Corpuscular Hemoglobin 29.7 pg (26-32)
[2018-07-19 05:48] LABS: ALBUMIN 3.9 g/dL (3.5-5.0); ALKALINE PHOSPHATASE 142 U/L (38-126); ANION GAP 11.3 MEQ/L (5-15); BLOOD UREA NITROGEN 10 mg/dL (7-17); CHLORIDE 100 mmol/L (98-107); Calcium 8.6 mg/dL (8.4-10.2); Carbon Dioxide 30 mmol/L (22-30); Creatinine 1 0.86 mg/dL (0.52-1.04); Glucose 91 mg/dL (74-106); Potassium 3.9 mmol/L (3.5-5.1); SGOT/AST 76 U/L (14-36); SGPT/ALT 75 U/L (0-35); SODIUM 137 mmol/L (137-145)
[2018-07-19] MEDS: PANCRELIPASE DR 5,000 UNIT CAP PO SCH ×2 (08:11→12:25)
[2018-07-19] MEDS: LYRICA 100MG PO SCH ×2 (08:12→14:27)
[2018-07-19] MEDS: PROAMATINE 5 MG PO SCH ×2 (08:12→14:28)
[2018-07-19] MEDS: Ecotrin 325 MG PO SCH (08:12)
[2018-07-19] MEDS: BUSPAR 5 MG PO SCH (08:12)
[2018-07-19] MEDS: Lasix 40 MG PO SCH (08:12)
[2018-07-19] MEDS: Reglan 10 MG PO SCH (08:13)
[2018-07-19] MEDS: ROCEPHIN 1 Gm-D5w 50 ml Bag** 1 G/50 ML IVPB IV SCH (09:50)
[2018-07-19 11:39] VITALS: BP 105/81; PULSE 95; O2SAT 95
[2018-07-19] MEDS ORDERED: PHARMACY DOSING REQUIRED: VANCOMYCIN IV ONE (13:33)
[2018-07-19] MEDS ORDERED: VANCOCIN 500 MG VIAL*** 500 MG in Sodium Chloride 100ML MINI-BAG PLUS 100 ML IV SCH (14:00)
--- NOTE | 2018-07-19 14:42 | PCM.DS ---
Discharge Summary Date of Admission: 07/17/18 16:20 Admitting Physician: JOSE ZAMORANO Primary Care Provider: JOSE ZAMORANO Allergies Allergies oxybutynin Allergy (Severe, Verified 07/17/18 14:00) pharyngeal swelling ampicillin Allergy (Mild, Verified 07/17/18 14:00) [facility] duloxetine [From Cymbalta] Allergy (Mild, Verified 07/17/18 14:00) nausea erythromycin base [Erythromycin Base] Allergy (Mild, Verified 07/17/18 14:00) [facility] Summary - Hospital Course Hospital Course: Pt is 53 yo female wiht chronic renal insufficiency, Crohn's disease wiht ileostomy and suprapubic catheter sent to ER from office with CP, abd pain, and not feeling well x 1 week. She was found to have a UTI and rocephin was started ; culture and sensitivity show Staph epidermis >100,000 CFU and resistant to oxacillin. so, I discussed with pharmacy and we decided to treat with vancomycin. I spoke with patient, discussed a po alternative but with her short gut syndrome will stick with IV meds. Plan is to discharge home today, f/ u tomorrow in infusion to begin twice daily IV vancomycin, 500mg. Would plan to treat through 07/25/18. Feeling much better today and tolerating po. - Vitals & Intake/Output Vital Signs: Vital Signs Temperature 98.2 F 07/19/18 11:38 Pulse Rate 95 H 07/19/18 11:38 Respiratory Rate 18 07/19/18 11:38 Blood Pressure 105/81 07/19/18 11:38 O2 Sat by Pulse Oximetry 95 07/19/18 11:38 Intake & Output: Intake & Output 07/17/18 07/18/18 07/19/18 07/20/18 11:59 11:59 11:59 11:59 Intake Total 0 3035 200 Output Total 550 2375 Balance -550 660 200 Weight 75.6 kg 77 kg - Lab Result Diagrams: 07/19/18 05:15 07/19/18 05:15 Lab Results-Last 24 Hrs: Lab Results-Last 24 Hours 07/19/18 07/19/18 Range/Units 05:15 05:15 WBC 4.8 (4.0-10.5) K/mm3 RBC 3.63 L (4.1-5.4) M/mm3 Hgb 10.8 L (12.0-16.0) gm/dl Hct 34.3 L (35-47) % MCV 94.5 (78-100) fl MCH 29.7 (26-32) pg MCHC 31.5 L (32-36) g/dl RDW 14.7 H (11.5-14.0) % Plt Count 240 (150-450) K/mm3 MPV 9.5 (6-9.5) fl Sodium 137 (137-145) mmol/L Potassium 3.9 (3.5-5.1) mmol/L Chloride 100 (98-107) mmol/L Carbon Dioxide 30 (22-30) mmol/L Anion Gap 11.3 (5-15) MEQ/L BUN 10 (7-17) mg/dL Creatinine 0.86 (0.52-1.04) mg/dL Estimated GFR > 60.0 ML/MIN Glucose 91 (74-106) mg/dL Calcium 8.6 (8.4-10.2) mg/dL Total Bilirubin 0.30 (0.2-1.3) mg/dL AST 76 H (14-36) U/L ALT 75 H (0-35) U/L Alkaline Phosphatase 142 H (38-126) U/L Serum Total Protein 7.0 (6.3-8.2) g/dL Albumin 3.9 (3.5-5.0) g/dL Micro Results-Entire Visit: Microbiology 07/17/18 15:15 Urine Culture - Final Clean Catch Midstream Staphylococcus Epidermidis - Radiology Exams Ordered Rad Exams-Entire Visit: Radiology Procedures Category Date Time Status ABDOMEN AND PELVIS W/0 CONTRAS [CT] Stat Exams 07/17/18 14:23 Completed CHEST 1 VIEW (PORTABLE) Stat Exams 07/17/18 14:23 Completed HEAD WITHOUT CONTRAST [CT] Stat Exams 07/17/18 14:52 Completed - Procedures and Test Procedures and Tests throughout Hospitalization: Therapy Orders & Screens 07/17/18 15:59 EKG Q8HX2,QAMX3,PRN Comment: 07/17/18 16:59 Smoking Cessation Education ONCE Comment: Diagnosis: acute chest pain, abd pain, chronic uti Smoking Status: Current every day smoker How long have you smoked: 20 years Have you smoked in the past 12 months: Yes Approximately how many cigarettes per day: 1/2 pack Do you dip or chew tobacco: No 07/17/18 21:55 EKG ONCE Comment: 07/18/18 05:00 EKG ONCE Comment: 07/19/18 05:00 EKG ONCE Comment: 07/20/18 05:00 EKG ONCE Comment: Discharge Exam General Appearance: no apparent distress, alert Neurologic Exam: oriented x 3, cooperative Skin Exam: normal color, warm, dry, No rash Respiratory Exam: normal breath sounds, lungs clear, No crackles/rales, No rhonchi, No wheezing Cardiovascular Exam: regular rate/rhythm, normal heart sounds, No murmur Gastrointestinal/Abdomen Exam: soft, normal bowel sounds, other (ileostomy and suprapubic catheter present.), No tenderness Extremity Exam: normal inspection Final Diagnosis/Problem List - Final Discharge Diagnosis/Problem (1) Abdominal pain Current Visit: No Status: Acute Onset Date: ~07/17/18 Assessment & Plan: Resolved. Apparently due to UTI. (2) UTI (urinary tract infection) Current Visit: No Status: Acute Onset Date: ~07/17/18 Assessment & Plan: home on 6 more d of IV vancomycin. (3) Chest pain Current Visit: No Status: Resolved Onset Date: ~07/17/18 (4) Chronic kidney disease (CKD) stage G3a/A1, moderately decreased glomerular filtration rate (GFR) between 45-59 mL/min/1.73 square meter and albuminuria creatinine ratio less than 30 mg/g Current Visit: No Status: Chronic Assessment & Plan: Renal function is currently great. will continue to check; will need daily bmp with the vancomycin. (5) Crohns disease Current Visit: No Status: Chronic (6) Elevated liver enzymes Current Visit: No Status: Chronic Assessment & Plan: AST somewhat better today. (7) Suprapubic catheter Current Visit: No Status: Chronic - Discharge Disposition: Home, Self-Care Condition: Good Prescriptions: Continue Pregabalin [Lyrica] 100 mg PO TID Doxylamine Succinate [Unisom Sleep Aid] 25 mg PO HS Diazepam 5 mg [Valium 5 MG] 5 mg PO TID Promethazine HCl 25 mg [Phenergan 25 mg] 25 mg PO BIDPRN PRN PRN Reason: Nausea Midodrine HCl 10 mg PO TID Amitriptyline HCl 100 mg PO HS Sodium Chloride 1 gm PO BID Heparin Flush 500 units/5 ml [Heparin Lock Flush 100 Units/ml 5ml Syringe ] 500 units PORT FLUSH PRN PRN disp.syrin PRN Reason: Iv Port Flush Lipase/Protease/Amylase [Concepcion Teran 24,000 Units Capsule] 6,000 udcap PO TID Vortioxetine Hydrobromide [Trintellix] 20 mg PO DAILY Tolterodine Tartrate [Tolterodine Tartrate ER] 4 mg PO DAILY Buspirone HCl 5 mg [Buspar 5 mg] 10 mg PO BID Hydrocodone Bit/Acetaminophen [[place] 10-325 Tablet] 1 each PO Q6H PRN PRN Reason: Pain Metoclopramide HCl [Reglan] 10 mg PO BID Ondansetron ODT 4 MG [Zofran Odt 4 mg] 4 mg PO Q6H PRN PRN PRN Reason: Nausea Furosemide 40 mg [Lasix 40 MG] 40 mg PO DAILY No Action Ciprofloxacin HCl [Cipro] 250 mg PO DAILY Follow up with: JOSE ZAMORANO [Primary Care Provider] - 1 Week
[2018-07-21] MEDS ORDERED: TROUGH DRUG LEVELS IJ ONE (09:30)
== END 2018-07-19 15:50 | disposition home or self-care (01) ==
LOC: ED 13:47 → MED SURG 16:20
PROVIDERS: ADMIT Family Medicine; ATTEND Family Medicine
DX: R10.9 Unspecified abdominal pain (principal); N39.0 Urinary tract infection, site not specified; R07.9 Chest pain, unspecified
CPT/HCPCS: 36000; 36415; 70450; 71045; 74176; 80053; 80061; 81001; 82150; 83605; 83690; 83721; 83735; 83880; 84484; 85025; 85027; 85610; 86803; 87077; 87086; 87186; 93005; 93268; 94760; 94762; 96374; 96375; 99285; J0696; J1170; J1642; J2270; J2405; J3010; J3370; J3420; J3475; J3480; A9270-GY; G0378

== ENCOUNTER 2018-09-01 09:08 | Inpatient (IN) | payer MEDICARE ==
[2018-09-01] MEDS: DILAUDID 2 MG INJECTION IV PRN ×2 (13:30→18:23)
[2018-09-01] MEDS: Sodium Chloride 0.9% 1000 ML 1,000 ML IV SCH ×2 (13:31→23:39)
[2018-09-01 14:16] LABS: Hematocrit 38.1 % (35-47); Hemoglobin 12.3 gm/dl (12.0-16.0); Mean Cell Volume 92.7 fl (78-100); Mean Corpuscular Hemoglobin 29.9 pg (26-32); Mean Corpuscular Hgb Concent. 32.3 g/dl (32-36); Mean Platelet Volume 10.6 fl (6-9.5); Platelet Count 266 K/mm3 (150-450); Red Blood Count 4.11 M/mm3 (4.1-5.4); Red Cell Distribution Width 15.5 % (11.5-14.0); White Blood Count 5.7 K/mm3 (4.0-10.5)
[2018-09-01] MEDS ORDERED: PHENERGAN 25 MG PO PRN (16:18)
[2018-09-01] MEDS ORDERED: IMODIUM 2 MG PO PRN (16:30)
[2018-09-01] MEDS ORDERED: MEDICATION INTERVENTION MC SCH ×2 (17:00)
[2018-09-01] MEDS ORDERED: OXYCODONE-ACETAMINOPHEN 10-325 PO PRN (17:52)
[2018-09-01] MEDS: Phenergan 25 MG INJ IV PRN (18:16)
[2018-09-01] MEDS: ZOFRAN ODT 4 MG PO PRN (20:12)
[2018-09-01] MEDS: LYRICA 100MG PO SCH (21:49)
[2018-09-01] MEDS: BUSPAR 5 MG PO SCH (21:49)
[2018-09-01] MEDS: Reglan 10 MG PO SCH (21:52)
[2018-09-01] MEDS: Valium 5 MG PO SCH (21:54)
[2018-09-01] MEDS: [UNRECOGNIZED DRUG - OTHER] PO SCH (21:54)
[2018-09-01] MEDS: SODIUM CHLORIDE PO SCH (21:54)
[2018-09-01] MEDS ORDERED: PANCRELIPASE DR 5,000 UNIT CAP PO SCH (22:00)
[2018-09-01] MEDS ORDERED: PROTEASE PO SCH (22:00)
[2018-09-01] MEDS ORDERED: LYRICA 75 MG CAP PO SCH (22:00)
[2018-09-01] MEDS ORDERED: LIPASE PO SCH (22:00)
[2018-09-01] MEDS ORDERED: AMITRIPTYLINE HCL 100 MG PO SCH (22:00)
[2018-09-01] MEDS ORDERED: [UNRECOGNIZED DRUG - OTHER] PO SCH (22:00)
[2018-09-01] MEDS ORDERED: AMYLASE PO SCH (22:00)
[2018-09-02] MEDS: Phenergan 25 MG INJ IV PRN ×2 (05:39→16:13)
[2018-09-02] MEDS: DILAUDID 2 MG INJECTION IV PRN (05:39)
[2018-09-02 06:12] LABS: Hematocrit 32.6 % (35-47); Hemoglobin 10.2 gm/dl (12.0-16.0); Mean Cell Volume 94.5 fl (78-100); Mean Corpuscular Hgb Concent. 31.3 g/dl (32-36); Mean Platelet Volume 9.6 fl (6-9.5); Platelet Count 243 K/mm3 (150-450); Red Blood Count 3.45 M/mm3 (4.1-5.4); Red Cell Distribution Width 15.3 % (11.5-14.0)
[2018-09-02 06:14] LABS: Mean Corpuscular Hemoglobin 29.5 pg (26-32)
[2018-09-02 06:34] LABS: ALBUMIN 3.5 g/dL (3.5-5.0); ALKALINE PHOSPHATASE 144 U/L (38-126); AMYLASE 85 U/L (30-110); ANION GAP 10.4 MEQ/L (5-15); BLOOD UREA NITROGEN 11 mg/dL (7-17); CHLORIDE 103 mmol/L (98-107); Calcium 8.3 mg/dL (8.4-10.2); Carbon Dioxide 26 mmol/L (22-30); Creatinine 1 0.87 mg/dL (0.52-1.04); Glucose 94 mg/dL (74-106); LIPASE 328 U/L (23-300); MAGNESIUM 1.9 mg/dL (1.6-2.3); Potassium 4.1 mmol/L (3.5-5.1); SGOT/AST 25 U/L (14-36); SGPT/ALT 30 U/L (0-35); SODIUM 136 mmol/L (137-145); Total Protein 6.3 g/dL (6.3-8.2)
[2018-09-02] MEDS: ZOFRAN ODT 4 MG PO PRN (07:50)
--- NOTE | 2018-09-02 09:14 | PCM.HP ---
History of Present Illness - Chief Complaint Chief Complaint: Pancreatitis, Abdominal Pain, Renal Insuff History of Present Illness: is a 53 year old female pt of mine from [facility] with chronic renal insufficiency, recurrent pancreatitis, ileostomy and short gut syndrome due to Crohn's disease s/p colectomy with indwelling suprapubic catheter who was admitted yesterday directly for pancreatitis. She saw me in office 5d ago and then was complaining of 1 week of increased epigastric pain radiating to the LUQ. She was still tolerating some po at that time so wanted to see if she could push fluids over the weekend and improve her condition. Her amylase was 116 and lipase 349 at that time. Three days later, Friday, she was in infusion getting her regularly scheduled IV fluids and she received extra fluid; that night she had to sleep sitting up as she had shortness of breath. The next day she returned for more fluids due to the pancreatitis and her amylase was 112 and her lipase was 448 so I asked her to come be admitted for IV fluids. This morning she is still c/o abd pain but her lipase is 325. - Review of Systems Abdominal/Gastrointestinal: Abdominal Pain, Nausea, Appetite Changes All Other Systems: Reviewed and Negative Medications & Allergies Home Medications: Home Medication List Diazepam 5 mg [Valium 5 MG] 5 mg PO TID 12/24/16 [History Confirmed ] Pregabalin [Lyrica] 100 mg PO BID 12/24/16 [History Confirmed 09/01/18] Promethazine HCl 25 mg [Phenergan 25 mg] 25 mg PO BIDPRN PRN 01/07/17 [ History Confirmed 09/01/18] Amitriptyline HCl 100 mg PO HS 07/04/17 [History Confirmed 09/01/18] Sodium Chloride 1 gm PO BID 07/23/17 [History Confirmed 09/01/18] Heparin Flush 500 units/5 ml [Heparin Lock Flush 100 Units/ml 5ml Syringe] 500 units PORT FLUSH PRN PRN disp.syrin 08/10/17 [Rx Confirmed 09/01/18] Lipase/Protease/Amylase [Concepcion Teran 24,000 Units Capsule] 6,000 udcap PO TID 08/22 [History Confirmed 09/01/18] Vortioxetine Hydrobromide [Trintellix] 20 mg PO DAILY 11/11/17 [History Confirmed 09/01/18] Tolterodine Tartrate [Tolterodine Tartrate ER] 4 mg PO DAILY 01/07/18 [History Confirmed 09/01/18] Buspirone HCl 5 mg [Buspar 5 mg] 10 mg PO TID 01/09/18 [History Confirmed 09/01/18] Hydrocodone Bit/Acetaminophen [[place] 10-325 Tablet] 1 each PO Q6H PRN 02/03/18 [ History Confirmed 09/01/18] Metoclopramide HCl [Reglan] 10 mg PO BID 03/05/18 [History Confirmed 09/01/18] Furosemide 40 mg [Lasix 40 MG] 40 mg PO DAILY 04/06/18 [History Confirmed 09/01/18] Ondansetron ODT 4 MG [Zofran Odt 4 mg] 4 mg PO Q6H PRN PRN 04/06/18 [ History Confirmed 09/01/18] Loperamide HCl 2 mg [Imodium 2 mg] 2 mg PO TID PRN 08/05/18 [History Confirmed 09/01/18] Allergies/Adverse Reactions: Allergies Allergy/AdvReac Type Severity Reaction Status Date / Time oxybutynin Allergy Severe Verified 08/05/18 08:58 ampicillin Allergy Mild Verified 08/05/18 08:58 duloxetine [From Cymbalta] Allergy Mild Verified 08/05/18 08:58 erythromycin base Allergy Mild Verified 08/05/18 08:58 [Erythromycin Base] - Past Medical History Past Medical History: Yes Neurological History: Peripheral Neuropathy ENT History: No Pertinent History Cardiac History: No Pertinent History Respiratory History: No Pertinent History Endocrine Medical History: Adrenal Insufficiency, Other Musculoskelatal History: Osteoarthritis GI Medical History: Crohns Disease, Pancreatitis, Other History: Renal Disease, Other Pyscho-Social History: Anxiety, Depression Reproductive Disorders: Other Comment: Pt had surgery for ahdesions in the gut and had complications. She has a colostomy and superpubic cather. kidney insufficency, pancreatitis. Pt gets infusions with potassium and magnesium - Female History Hx Last Menstrual Period: total hystectomy Are you now?: No - Past Surgical History Past Surgical History: Yes (ileostomy, suprapubic catheter) Neuro Surgical History: No Pertinent History Cardiac History: No Pertinent History Respiratory Surgery: No Pertinent History GI Surgical History: Bowel Surgery, Cholecystectomy Genitourinary Surgical Hx: Other Musculskeletal Surgical Hx: No Pertinent History Female Surgical History: Hysterectomy Other Surgical History: has 120 cm of small bowel,illiostomy, urostomy following compications after surgery to remove adhesions - Social History Smoking Status: Current every day smoker How long have you smoked: 20 yrs Exposure to second hand smoke: Yes Alcohol: None Drug Use: none - Physical Exam Vital Signs: Vital Signs - 24 hr Temp Pulse Resp BP Pulse Ox 09/02/18 07:38 98.2 F 93 H 18 101/64 94 L 09/02/18 04:00 97.9 F 78 17 104/56 94 L 09/01/18 22:00 97.7 F 87 17 92/58 96 09/01/18 18:00 98.3 F 94 H 19 114/72 94 L 09/01/18 14:59 98.3 F 94 H 18 139/82 95 09/01/18 11:08 96.5 F 92 H 18 128/78 96 09/01/18 10:59 97.7 F 94 H 18 139/82 96 General Appearance: no apparent distress, alert Neurologic Exam: oriented x 3, cooperative Eye Exam: eyes nml inspection Ears, Nose, Throat Exam: moist mucous membranes Respiratory Exam: normal breath sounds, lungs clear, No crackles/rales, No rhonchi, No wheezing Cardiovascular Exam: regular rate/rhythm, normal heart sounds, No murmur Gastrointestinal/Abdomen Exam: soft, tenderness (LUQ, and particularly in epigastrum), guarding, No normal bowel sounds (hypoactive but present), No distention, No mass, No rebound Extremity Exam: swelling (trace pretibial edema bilat) Skin Exam: normal color, warm, dry, No rash Results - Labs Lab/Micro Results: Lab Results-Last 24 Hours 09/01/18 09/02/18 09/02/18 Range/Units 09:00 06:05 06:05 WBC 5.7 4.0 (4.0-10.5) K/mm3 RBC 4.11 3.45 L (4.1-5.4) M/mm3 Hgb 12.3 10.2 L (12.0-16.0) gm/dl Hct 38.1 32.6 L (35-47) % MCV 92.7 94.5 (78-100) fl MCH 29.9 29.5 (26-32) pg MCHC 32.3 31.3 L (32-36) g/dl RDW 15.5 H 15.3 H (11.5-14.0) % Plt Count 266 243 (150-450) K/mm3 MPV 10.6 H 9.6 H (6-9.5) fl Sodium 136 L (137-145) mmol/L Potassium 4.1 (3.5-5.1) mmol/L Chloride 103 (98-107) mmol/L Carbon Dioxide 26 (22-30) mmol/L Anion Gap 10.4 (5-15) MEQ/L BUN 11 (7-17) mg/dL Creatinine 0.87 (0.52-1.04) mg/dL Estimated GFR > 60.0 ML/MIN Glucose 94 (74-106) mg/dL Calcium 8.3 L (8.4-10.2) mg/dL Magnesium 1.9 (1.6-2.3) mg/dL Total Bilirubin 0.30 (0.2-1.3) mg/dL AST 25 (14-36) U/L ALT 30 (0-35) U/L Alkaline Phosphatase 144 H (38-126) U/L Serum Total Protein 6.3 (6.3-8.2) g/dL Albumin 3.5 (3.5-5.0) g/dL Amylase 85 (30-110) U/L Lipase 328 H (23-300) U/L Assessment/Plan (1) Pancreatitis Current Visit: Yes Status: Acute Qualifiers: Chronicity: acute Pancreatitis type: unspecified pancreatitis type Acute pancreatitis complication: no infection or necrosis Qualified Code(s): K85.90 - Acute pancreatitis without necrosis or infection, unspecified Assessment & Plan: Some improvement; may be able to d/c tomorrow or the next day if feeling better and lipase normalizes. Code(s): K85.90 - ACUTE PANCREATITIS WITHOUT NECROSIS OR INFECTION, UNSP (2) Chronic kidney disease (CKD) stage G3a/A1, moderately decreased glomerular filtration rate (GFR) between 45-59 mL/min/1.73 square meter and albuminuria creatinine ratio less than 30 mg/g Current Visit: No Status: Chronic Assessment & Plan: Dr. Orourke was consulted for management of fluids. Cr was 0.87 this morning. Code(s): N18.3 - CHRONIC KIDNEY DISEASE, STAGE 3 (MODERATE)
[2018-09-02] MEDS: Valium 5 MG PO SCH ×3 (09:43→21:54)
[2018-09-02] MEDS: Reglan 10 MG PO SCH ×2 (09:43→21:54)
[2018-09-02] MEDS: Lasix 40 MG PO SCH (09:43)
[2018-09-02] MEDS: LYRICA 100MG PO SCH ×2 (09:43→21:53)
[2018-09-02] MEDS: BUSPAR 5 MG PO SCH ×3 (09:43→21:54)
[2018-09-02] MEDS: SODIUM CHLORIDE PO SCH ×2 (09:44→21:55)
[2018-09-02] MEDS: [UNRECOGNIZED DRUG - OTHER] PO SCH ×2 (09:44→21:55)
[2018-09-02] MEDS: PATIENT OWN MEDICATION PO SCH ×5 (09:44→21:57)
[2018-09-02] MEDS: Pepcid 20 MG PO SCH ×2 (09:56→21:54)
[2018-09-02] MEDS: Sodium Chloride 0.9% 1000 ML 1,000 ML IV SCH ×2 (09:56→19:54)
[2018-09-02] MEDS: MORPHINE SULFATE 10 MG/ML IV PRN ×5 (09:56→23:25)
[2018-09-02] MEDS ORDERED: NON-FORMULARY ITEM (Tolterodine Tartrate [Tolterodine Tartrate Er] 4 MG) PO SCH (10:00)
[2018-09-02] MEDS ORDERED: VORTIOXETINE HYDROBROMIDE 20 MG PO SCH (10:00)
[2018-09-02] MEDS: ENOXAPARIN SODIUM SQ SCH (11:41)
[2018-09-02 17:23] LABS: Appearance SLIGHTLY CLOUDY (CLEAR); Bilirubin NEGATIVE (NEGATIVE); Blood SMALL Ery/ul (0-5); Glucose NEGATIVE (NEGATIVE); Ketones NEGATIVE (NEGATIVE); Leukocyte Esterase MODERATE (NEGATIVE); Mucus SLIGHT /HPF (NEGATIVE); Nitrite NEGATIVE (NEGATIVE); Protein,Urine Dip 30 (Negative); Specific Gravity 1.017 (1.005-1.025); Urobilinogen NEGATIVE mg/dL (0-1); WBC >100 /HPF (0-5)
[2018-09-03] MEDS: MORPHINE SULFATE 10 MG/ML IV PRN ×7 (02:34→20:19)
[2018-09-03] MEDS: Sodium Chloride 0.9% 1000 ML 1,000 ML IV SCH ×2 (05:32→17:12)
[2018-09-03 06:16] LABS: Hematocrit 32.3 % (35-47); Hemoglobin 10.1 gm/dl (12.0-16.0); Mean Cell Volume 94.7 fl (78-100); Mean Corpuscular Hemoglobin 29.6 pg (26-32); Mean Corpuscular Hgb Concent. 31.3 g/dl (32-36); Mean Platelet Volume 9.7 fl (6-9.5); Platelet Count 278 K/mm3 (150-450); Red Blood Count 3.41 M/mm3 (4.1-5.4); Red Cell Distribution Width 15.2 % (11.5-14.0); White Blood Count 4.3 K/mm3 (4.0-10.5)
[2018-09-03 06:30] LABS: ALBUMIN 3.7 g/dL (3.5-5.0); ALKALINE PHOSPHATASE 125 U/L (38-126); AMYLASE 78 U/L (30-110); ANION GAP 11.2 MEQ/L (5-15); BLOOD UREA NITROGEN 7 mg/dL (7-17); CHLORIDE 105 mmol/L (98-107); Carbon Dioxide 27 mmol/L (22-30); Creatinine 1 0.87 mg/dL (0.52-1.04); Glucose 87 mg/dL (74-106); LIPASE 208 U/L (23-300); MAGNESIUM 1.5 mg/dL (1.6-2.3); Potassium 3.9 mmol/L (3.5-5.1); SGOT/AST 21 U/L (14-36); SGPT/ALT 25 U/L (0-35); SODIUM 139 mmol/L (137-145); Total Protein 6.6 g/dL (6.3-8.2)
[2018-09-03] MEDS: Phenergan 25 MG INJ IV PRN ×3 (07:49→20:19)
--- NOTE | 2018-09-03 08:28 | PCM.NOTE ---
Date and Time: 09/03/18821 Subjective Assessment: She is still having 7/10 epigastric pain and had a bad night due to burning pain radiating up from the epigastrum. Amylase and lipase nl this morning. tolerating her CLD. - Review of Systems Constitutional: No Fever Abdominal/Gastrointestinal: Abdominal Pain, Nausea Objective Exam General Appearance: no apparent distress, alert Neurologic Exam: oriented x 3, cooperative Skin Exam: normal color, warm, dry, No rash Ears, Nose, Throat Exam: moist mucous membranes Respiratory Exam: normal breath sounds, No crackles/rales, No rhonchi, No wheezing Cardiovascular Exam: regular rate/rhythm, normal heart sounds, No murmur Gastrointestinal/Abdomen Exam: soft, tenderness (epigastrum, more so in LUQ), No normal bowel sounds (hypoactive but present) Extremity Exam: normal inspection Back Exam: normal inspection, No rash OBJECTIVE DATA Vital Signs: Vital Signs - 24 hr Temp Pulse Resp BP Pulse Ox 09/03/18 07:31 97.8 F 88 20 108/56 96 09/03/18 04:00 98.2 F 78 16 106/62 94 L 09/03/18 00:00 97.6 F 78 18 106/65 97 09/02/18 20:00 99.7 F 120 H 20 153/88 97 09/02/18 16:00 98.3 F 96 H 18 115/72 97 09/02/18 12:00 97.9 F 92 H 18 114/63 98 Oxygen-Last 24 hours O2 Percentage 4 Liters = 36% Pain Assessment - Last Documented Pain Intensity 7 Pain Scale Used 0-10 Pain Scale,FLACC Intake and Output: Intake & Output 08/31/18 09/01/18 09/02/18 09/03/18 11:59 11:59 11:59 11:59 Intake Total 5206 3776 Output Total 1020 3025 Balance 4186 751 Weight 72.2 kg Lab Results: Lab Results-Last 24 Hours 09/02/18 09/03/18 09/03/18 Range/Units 17:06 05:54 05:54 WBC 4.3 (4.0-10.5) K/mm3 RBC 3.41 L (4.1-5.4) M/mm3 Hgb 10.1 L (12.0-16.0) gm/dl Hct 32.3 L (35-47) % MCV 94.7 (78-100) fl MCH 29.6 (26-32) pg MCHC 31.3 L (32-36) g/dl RDW 15.2 H (11.5-14.0) % Plt Count 278 (150-450) K/mm3 MPV 9.7 H (6-9.5) fl Sodium 139 (137-145) mmol/L Potassium 3.9 (3.5-5.1) mmol/L Chloride 105 (98-107) mmol/L Carbon Dioxide 27 (22-30) mmol/L Anion Gap 11.2 (5-15) MEQ/L BUN 7 (7-17) mg/dL Creatinine 0.87 (0.52-1.04) mg/dL Estimated GFR > 60.0 ML/MIN Glucose 87 (74-106) mg/dL Calcium 8.0 L (8.4-10.2) mg/dL Magnesium 1.5 L (1.6-2.3) mg/dL Total Bilirubin 0.20 (0.2-1.3) mg/dL AST 21 (14-36) U/L ALT 25 (0-35) U/L Alkaline Phosphatase 125 (38-126) U/L Serum Total Protein 6.6 (6.3-8.2) g/dL Albumin 3.7 (3.5-5.0) g/dL Amylase 78 (30-110) U/L Lipase 208 (23-300) U/L Urine Color YELLOW (YELLOW) Urine Appearance SLIGHTLY CLOUDY (CLEAR) Urine pH 5.0 (5-6) Ur Specific [place] 1.017 (1.005-1.025) Urine Protein 30 (Negative) Urine Ketones NEGATIVE (NEGATIVE) Urine Blood SMALL (0-5) Gregg/ul Urine Nitrite NEGATIVE (NEGATIVE) Urine Bilirubin NEGATIVE (NEGATIVE) Urine Urobilinogen NEGATIVE (0-1) mg/dL Ur Leukocyte Esterase MODERATE (NEGATIVE) Urine WBC (Auto) >100 (0-5) /HPF Urine RBC (Auto) 6-10 (0-2) /HPF U Epithel Cells (Auto) NONE (FEW) /HPF Urine Bacteria (Auto) NONE (NEGATIVE) /HPF Urine Mucus (Auto) SLIGHT (NEGATIVE) /HPF Urine Culture Reflexed YES (NO) Urine Glucose NEGATIVE (NEGATIVE) mg/dL Multi-Disciplinary Progress Notes: Multi-Disciplinary Progress Notes 09/02/18 11:27 Case Management Note by Becky,Miguelina SPOKE WITH PT ABOUT NEEDS AT DISCHARGE. PT STATES SHE CURRENTLY COMES TO [facility] FOR OUTPATIENT INFUSIONS 3X A WEEK AND HER FIANCE IS ABLE TO HELP HER. SHE PLANS TO RETURN HOME AT PRE-EPISODIC LEVEL AND DOES NOT REQUIRE ADDITIONAL HOME CARE. IMPORTANT MEDICARE PAPERS SIGNED AND PLACED IN CHART. WILL CONTINUE TO FOLLOW FOR ADDITIONAL NEEDS AT CT. Initialized on 09/02/18 11:27 - END OF NOTE Assessment/Plan (1) Abdominal pain Current Visit: No Status: Acute Onset Date: ~07/17/18 Qualifiers: Abdominal location: generalized Qualified Code(s): R10.84 - Generalized abdominal pain Assessment & Plan: could be gastric etiology - EGD tomorrow with Dr. Arguello. Code(s): R10.9 - UNSPECIFIED ABDOMINAL PAIN (2) Pancreatitis Current Visit: Yes Status: Acute Qualifiers: Chronicity: acute Pancreatitis type: unspecified pancreatitis type Acute pancreatitis complication: no infection or necrosis Qualified Code(s): K85.90 - Acute pancreatitis without necrosis or infection, unspecified Assessment & Plan: amylase and lipase normal this morning. increase to bland diet today. Code(s): K85.90 - ACUTE PANCREATITIS WITHOUT NECROSIS OR INFECTION, UNSP (3) Chronic kidney disease (CKD) stage G3a/A1, moderately decreased glomerular filtration rate (GFR) between 45-59 mL/min/1.73 square meter and albuminuria creatinine ratio less than 30 mg/g Current Visit: No Status: Chronic Assessment & Plan: eGFR normal today. Nephrology consulted, thank you. Code(s): N18.3 - CHRONIC KIDNEY DISEASE, STAGE 3 (MODERATE)
[2018-09-03] MEDS ORDERED: Magnesium Sulfate 1 GM/2 ML VIAL IV ONE (08:30)
[2018-09-03] MEDS ORDERED: Magnesium Sulfate 1 GM/2 ML VIAL*** 2 GM in Sodium Chloride 0.9% 100 ML IVPB 100 ML IV ONE (08:45)
[2018-09-03] MEDS: Lasix 40 MG PO SCH (08:51)
[2018-09-03] MEDS: Pepcid 20 MG PO SCH ×2 (08:51→21:22)
[2018-09-03] MEDS: PATIENT OWN MEDICATION PO SCH ×5 (08:51→21:25)
[2018-09-03] MEDS: LYRICA 100MG PO SCH ×2 (08:51→21:22)
[2018-09-03] MEDS: Reglan 10 MG PO SCH ×2 (08:51→21:22)
[2018-09-03] MEDS: ENOXAPARIN SODIUM SQ SCH (08:51)
[2018-09-03] MEDS: Valium 5 MG PO SCH ×3 (08:51→21:22)
[2018-09-03] MEDS: BUSPAR 5 MG PO SCH ×3 (08:51→21:21)
[2018-09-03] MEDS: [UNRECOGNIZED DRUG - OTHER] PO SCH ×2 (08:53→21:35)
[2018-09-03] MEDS: SODIUM CHLORIDE PO SCH ×2 (08:53→21:35)
[2018-09-03] MEDS: BENADRYL 25 MG CAPSULE PO PRN ×2 (14:48→22:37)
[2018-09-03] MEDS ORDERED: KENALOG 0.1% LOTION TP SCH (22:00)
[2018-09-04] MEDS: Sodium Chloride 0.9% 1000 ML 1,000 ML IV SCH ×3 (01:50→09:56)
[2018-09-04] MEDS: MORPHINE SULFATE 10 MG/ML IV PRN ×2 (05:08→08:07)
[2018-09-04 05:27] LABS: Hematocrit 32.4 % (35-47); Hemoglobin 10.3 gm/dl (12.0-16.0); Mean Cell Volume 93.1 fl (78-100); Mean Corpuscular Hgb Concent. 31.8 g/dl (32-36); Mean Platelet Volume 9.5 fl (6-9.5); Platelet Count 255 K/mm3 (150-450); Red Blood Count 3.48 M/mm3 (4.1-5.4); Red Cell Distribution Width 15.1 % (11.5-14.0); White Blood Count 4.6 K/mm3 (4.0-10.5)
[2018-09-04 05:56] LABS: Mean Corpuscular Hemoglobin 29.5 pg (26-32)
[2018-09-04] MEDS ORDERED: Sodium Chloride 0.9% 1000 ML 1,000 ML IV SCH (06:00)
[2018-09-04 06:29] LABS: ALBUMIN 3.6 g/dL (3.5-5.0); ALKALINE PHOSPHATASE 134 U/L (38-126); AMYLASE 83 U/L (30-110); ANION GAP 10.1 MEQ/L (5-15); BLOOD UREA NITROGEN 11 mg/dL (7-17); CHLORIDE 103 mmol/L (98-107); Calcium 8.2 mg/dL (8.4-10.2); Carbon Dioxide 28 mmol/L (22-30); Creatinine 1 0.88 mg/dL (0.52-1.04); Glucose 87 mg/dL (74-106); LIPASE 211 U/L (23-300); MAGNESIUM 1.9 mg/dL (1.6-2.3); SGOT/AST 34 U/L (14-36); SGPT/ALT 26 U/L (0-35); SODIUM 138 mmol/L (137-145); Total Protein 6.6 g/dL (6.3-8.2)
[2018-09-04 08:19] VITALS: O2SAT 95
--- NOTE | 2018-09-04 08:26 | OP ---
SURGERY DATE/TIME: 09/04/201805 PREOPERATIVE DIAGNOSIS: Epigastric pain. POSTOPERATIVE DIAGNOSIS: Gastric ulcer disease. PROCEDURE: EGD. SURGEON: Evens Arguello M.D. ANESTHESIA: MAC by Florentino Hdz CRNA. ESTIMATED BLOOD LOSS: Minimal. SPECIMENS: Two cold forceps biopsies were taken from the gastric antrum for Helicobacter pylori testing. DESCRIPTION OF PROCEDURE: After informed written consent was obtained, the patient was taken to the endoscopy suite. She underwent monitored anesthesia and the endoscope was passed through a bite block into the posterior oropharynx and under direct visualization the esophagus was easily traversed. The gastric mucosa had a normal rugated appearance. There were moderate gastritis-type changes in the antrum with two small areas of healing ulcer with no active bleeding. The pylorus was traversed and the first and second portions of the duodenum were within normal limits. Two cold forceps biopsies were taken from the gastric antrum and sent for Helicobacter pylori testing. Retroflexion showed no other lesions in the gastric cavity. Upon withdrawal the gastroesophageal junction and esophageal mucosa appeared unremarkable. The scope was removed and the patient was transferred back to the floor in good condition.
--- NOTE | 2018-09-04 09:01 | PCM.DS ---
Discharge Summary Date of Admission: 09/02/18 09:08 Admitting Physician: JOSE ZAMORANO Consults: Consults on Case 09/01/18 11:20 Consult Nephrology ROUTINE 09/03/18 08:26 Consult Surgery ROUTINE Primary Care Provider: JOSE ZAMORANO Allergies Allergies oxybutynin Allergy (Severe, Verified 08/05/18 08:58) pharyngeal swelling acetaminophen [From Percocet] Allergy (Intermediate, Verified 09/02/18 09:59) Hives Pt. stated " Immediatly after taking it I felt like I was coming out of my skin." oxycodone [From Percocet] Allergy (Intermediate, Verified 09/02/18 09:59) Hives Pt. stated " Immediatly after taking it I felt like I was coming out of my skin." ampicillin Allergy (Mild, Verified 08/05/18 08:58) hives duloxetine [From Cymbalta] Allergy (Mild, Verified 08/05/18 08:58) nausea erythromycin base [Erythromycin Base] Allergy (Mild, Verified 08/05/18 08:58) [facility] Hospital Summary - Hospital Course Hospital Course: Pt is 53 yo female pt of mine from [facility] with PMHx Crohn's with colectomy and ileostomy with resultant bladder damage and suprapubic catheter with chronic pancreatitis who was admitted from [facility] with over a week of epigastric pain radiating to the LUQ. She did have elevated lipase into the 400s. She was treated with IV fluids and pain meds. She continued to have pain so EGD was done this morning which revealed peptic ulcers. Biopsies are pending (see Dr. Arguello' notes for full details). She is getting ready to eat breakfast and will be discharged to home if she tolerates it. She does have some abdominal pain but would like to go home. She did have some itching and rash which developed yesterday and was resistant to benadryl; has been using steroid cream. - Vitals & Intake/Output Vital Signs: Vital Signs Temperature 98.2 F 09/04/18 07:45 Pulse Rate 94 H 09/04/18 08:15 Respiratory Rate 16 09/04/18 08:15 Blood Pressure 136/87 09/04/18 08:15 O2 Sat by Pulse Oximetry 95 09/04/18 08:15 Oxygen-Last Documented O2 Percentage 4 Liters = 36% Intake & Output: Intake & Output 09/01/18 09/02/18 09/03/18 09/04/18 11:59 11:59 11:59 11:59 Intake Total 5202 4016 2453 Output Total 1020 3025 575 Balance 4183 992 4671 Weight 72.2 kg 72.2 kg - Lab Result Diagrams: 09/04/18 05:21 09/04/18 05:21 Lab Results-Last 24 Hrs: Lab Results-Last 24 Hours 09/04/18 09/04/18 Range/Units 05:21 05:21 WBC 4.6 (4.0-10.5) K/mm3 RBC 3.48 L (4.1-5.4) M/mm3 Hgb 10.3 L (12.0-16.0) gm/dl Hct 32.4 L (35-47) % MCV 93.1 (78-100) fl MCH 29.5 (26-32) pg MCHC 31.8 L (32-36) g/dl RDW 15.1 H (11.5-14.0) % Plt Count 255 (150-450) K/mm3 MPV 9.5 (6-9.5) fl Sodium 138 (137-145) mmol/L Potassium 4.0 (3.5-5.1) mmol/L Chloride 103 (98-107) mmol/L Carbon Dioxide 28 (22-30) mmol/L Anion Gap 10.1 (5-15) MEQ/L BUN 11 (7-17) mg/dL Creatinine 0.88 (0.52-1.04) mg/dL Estimated GFR > 60.0 ML/MIN Glucose 87 (74-106) mg/dL Calcium 8.2 L (8.4-10.2) mg/dL Magnesium 1.9 (1.6-2.3) mg/dL Total Bilirubin 0.30 (0.2-1.3) mg/dL AST 34 (14-36) U/L ALT 26 (0-35) U/L Alkaline Phosphatase 134 H (38-126) U/L Serum Total Protein 6.6 (6.3-8.2) g/dL Albumin 3.6 (3.5-5.0) g/dL Amylase 83 (30-110) U/L Lipase 211 (23-300) U/L Micro Results-Entire Visit: Microbiology 09/02/18 17:06 Urine Culture - Final Clean Catch Midstream NO GROWTH Discharge Exam General Appearance: no apparent distress, alert Neurologic Exam: oriented x 3, cooperative Skin Exam: normal color, warm, dry, rash (scattered papules sl erythematous inferior to breasts. there is an approx 5x8cm area of macular erythema lateral to R neck) Respiratory Exam: normal breath sounds, lungs clear, No crackles/rales, No rhonchi, No wheezing Cardiovascular Exam: regular rate/rhythm, normal heart sounds, No murmur Gastrointestinal/Abdomen Exam: soft, tenderness (epigastrum and LUQ), No normal bowel sounds (hypoactive but present), No distention, No mass, No guarding, No rebound Extremity Exam: normal inspection, No swelling Back Exam: normal inspection Final Diagnosis/Problem List - Final Discharge Diagnosis/Problem (1) Peptic ulcer Current Visit: Yes Status: Acute Assessment & Plan: give IV protonix here. home on po PPI 40mgd/ and carafate. She already avoids NSAIDs but we did discuss that. (2) Pancreatitis Current Visit: Yes Status: Resolved (3) Chronic kidney disease (CKD) stage G3a/A1, moderately decreased glomerular filtration rate (GFR) between 45-59 mL/min/1.73 square meter and albuminuria creatinine ratio less than 30 mg/g Current Visit: No Status: Chronic Assessment & Plan: eGFR nl today - Discharge Disposition: Home, Self-Care Condition: Good Prescriptions: New Sucralfate 1 gm [Carafate 1 GM] 1 g PO ACHS #120 tablet Triamcinolone 0.1% Lotion [Kenalog 0.1% Lotion] 1 ml TP BID #1 lotion Omeprazole 40 mg PO DAILY #30 capsule. Continue Pregabalin [Lyrica] 100 mg PO BID Diazepam 5 mg [Valium 5 MG] 5 mg PO TID Promethazine HCl 25 mg [Phenergan 25 mg] 25 mg PO BIDPRN PRN PRN Reason: Nausea Amitriptyline HCl 100 mg PO HS Sodium Chloride 1 gm PO BID Heparin Flush 500 units/5 ml [Heparin Lock Flush 100 Units/ml 5ml Syringe ] 500 units PORT FLUSH PRN PRN disp.syrin PRN Reason: Iv Port Flush Lipase/Protease/Amylase [Concepc[place] Teran 24,000 Units Capsule] 6,000 udcap PO TID Vortioxetine Hydrobromide [Trintellix] 20 mg PO DAILY Tolterodine Tartrate [Tolterodine Tartrate ER] 4 mg PO DAILY Buspirone HCl 5 mg [Buspar 5 mg] 10 mg PO TID Hydrocodone Bit/Acetaminophen [[place] 10-325 Tablet] 1 each PO Q6H PRN PRN Reason: Pain Metoclopramide HCl [Reglan] 10 mg PO BID Ondansetron ODT 4 MG [Zofran Odt 4 mg] 4 mg PO Q6H PRN PRN PRN Reason: Nausea Furosemide 40 mg [Lasix 40 MG] 40 mg PO DAILY Loperamide HCl 2 mg [Imodium 2 mg] 2 mg PO TID PRN Instructions: [place] [facility] Follow up with: KHUSHBU REYNOSO [CONSULTING PHYSICIAN] - 1 Week JOSE ZAMORANO [Primary Care Provider] - 1 Week
[2018-09-04 09:20] VITALS: BP 124/64; PULSE 90
[2018-09-04] MEDS ORDERED: Ketamine HCl 50 MG/ML IV ONE (09:54)
[2018-09-04] MEDS ORDERED: DIPRIVAN 200 MG/20 ML IV ONE (09:54)
== END 2018-09-04 09:55 | disposition home or self-care (01) | DRG 383 ==
LOC: MED SURG 09:08 → OBSVTOIN 09-02 09:08
PROVIDERS: ADMIT Family Medicine; ATTEND Family Medicine
PROC: 0DB68ZX Excision of Stomach, Via Natural or Artificial Opening Endoscopic, Diagnostic (ICD-10-PCS; principal; 2018-09-04)
DX: K27.3 Acute peptic ulcer, site unspecified, without hemorrhage or perforation (principal); K85.90 Acute pancreatitis without necrosis or infection, unspecified; K50.90 Crohn's disease, unspecified, without complications; R10.13 Epigastric pain; N18.3 Chronic kidney disease, stage 3 (moderate); Z79.899 Other long term (current) drug therapy; Z93.3 Colostomy status
CPT/HCPCS: 36415; 43239; 80053; 81001; 82150; 83690; 83735; 85027; 87086; G0378; J1170; J1642; J1650; J2270; J2550; J2704; J3475; Q0162; A9270-GY

== ENCOUNTER 2018-11-24 15:22 | Inpatient (IN) | payer MEDICARE ==
[~2018-11-24 15:22] MED LIST: BENADRYL 50 MG/ML ONE; BUSPAR 5 MG ONE; MORPHINE SULFATE 10 MG/ML ONE; PROTONIX 40 MG IV IV ONE; PYRIDIUM 200 MG ONE; Valium 5 MG ONE; ZOLOFT 50 MG TABLET ONE
[2018-11-24] MEDS ORDERED: Sodium Chloride 0.9% 1000 ML 1,000 ML IV SCH ×2 (15:45→18:48)
[2018-11-24] MEDS ORDERED: Sodium Chloride 0.9% 1000 ML 1,000 ML ONE (15:47)
--- NOTE | 2018-11-24 16:08 | ERPHSYRPT ---
- History of Present Illness Time Seen by Provider: 11/24/18 16:02 Source: patient, other (infusion center) Exam Limitations: no limitations Patient Subjective Stated Complaint: Infusion nurses state "after her infusion, her heart rate went up into the 180s and she is really tired.". Pt states "I am a little tired. Triage Nursing Assessment: PT alert and oriented X 3, skin pwd. PT lethargic, ambulates with an upright steady gait, able to speak in clear full sentences. PT in no apparent respiratory distress. Physician History: This 53-year-old white female with history of peripheral neuropathy, adrenal insufficiency, osteoarthritis, renal disease, anxiety, depression, adhesions, pancreatitis who receives infusion of potassium and magnesium. She is sent from the infusion center apparently patient had a heart rate of 180 after infusion she states she had no shortness of breath she states she just feels tired she has no chest pain. Past medical history includes peripheral neuropathy, adrenal insufficiency, osteoarthritis, renal disease, anxiety, depression, adhesions, pancreatitis, patient has had bowel adhesions in the past patient has received infusions of magnesium and potassium Past surgical history includes small bowel resection, ileostomy, urostomy, lysis of adhesions,, cholecystectomy, hysterectomy Social history positive tobacco Timing/Duration: today (just prior to arrival) Severity: moderate Modifying Factors: Improves With: other (patient had received infusion of potassium and magnesium) Associated Symptoms: other (patient feels tired), No nausea, No vomiting, No abdominal pain, No shortness of breath, No heartburn, No diaphoresis, No cough, No chills, No chest pain, No fever, No headaches, No loss of appetite, No malaise, No rash, No syncope, No seizure, No weakness Allergies/Adverse Reactions: oxybutynin Allergy (Severe, Verified 11/02/18 08:30) pharyngeal swelling acetaminophen [From Percocet] Allergy (Intermediate, Verified 11/02/18 08:30) Hives Pt. stated " Immediatly after taking it I felt like I was coming out of my skin." oxycodone [From Percocet] Allergy (Intermediate, Verified 11/02/18 08:30) Hives Pt. stated " Immediatly after taking it I felt like I was coming out of my skin." ampicillin Allergy (Mild, Verified 11/02/18 08:30) hives duloxetine [From Cymbalta] Allergy (Mild, Verified 11/02/18 08:30) nausea erythromycin base [Erythromycin Base] Allergy (Mild, Verified 11/02/18 08:30) Hives Home Medications: Diazepam 5 mg [Valium 5 MG] 10 mg PO TID 12/24/16 [History] Pregabalin [Lyrica] 100 mg PO BID 12/24/16 [History] Promethazine HCl 25 mg [Phenergan 25 mg] 25 mg PO BIDPRN PRN 01/07/17 [ History] Amitriptyline HCl 100 mg PO HS 07/04/17 [History] Sodium Chloride 1 gm PO BID 07/23/17 [History] Lipase/Protease/Amylase [Creon Dr 24,000 Units Capsule] 6,000 udcap PO TID 08/22 [History] Tolterodine Tartrate [Tolterodine Tartrate ER] 4 mg PO DAILY 01/07/18 [History] Buspirone HCl 5 mg [Buspar 5 mg] 10 mg PO TID 01/09/18 [History] Hydrocodone Bit/Acetaminophen [[place] 10-325 Tablet] 1 each PO Q6H PRN 02/03/18 [ History] Metoclopramide HCl [Reglan] 10 mg PO BID 03/05/18 [History] Furosemide 40 mg [Lasix 40 MG] 40 mg PO DAILY 04/06/18 [History] Ondansetron ODT 4 MG [Zofran Odt 4 mg] 4 mg PO Q6H PRN PRN 04/06/18 [ History] Loperamide HCl 2 mg [Imodium 2 mg] 2 mg PO TID PRN 08/05/18 [History] Esomeprazole Magnesium [Nexium] 40 mg PO DAILY 09/07/18 [History] Spironolactone 25 mg [Aldactone 25 MG] 25 mg PO DAILY 09/23/18 [History] Sertraline HCl [Zoloft] 200 mg PO DAILY 11/06/18 [History] Hx Tetanus, Diphtheria Vaccination/Date Given: Yes Hx Influenza Vaccination/Date Given: Yes Hx Pneumococcal Vaccination/Date Given: Yes Immunizations Up to Date: Yes - Review of Systems Constitutional: No Fever, No Chills Eyes: No Symptoms Ears, Nose, & Throat: No Symptoms Respiratory: No Cough, No Dyspnea Cardiac: Palpitations, Other (Rapid heart rate at infusion center) Abdominal/Gastrointestinal: No Abdominal Pain, No Nausea, No Vomiting, No Diarrhea Genitourinary Symptoms: No Dysuria Musculoskeletal: No Back Pain, No Neck Pain Skin: No Rash Neurological: No Dizziness, No Focal Weakness, No Sensory Changes Psychological: No Symptoms Endocrine: No Symptoms All Other Systems: Reviewed and Negative - Past Medical History Pertinent Past Medical History: Yes Neurological History: Peripheral Neuropathy ENT History: No Pertinent History Cardiac History: No Pertinent History Respiratory History: No Pertinent History Endocrine Medical History: Adrenal Insufficiency, Other Musculoskeletal History: Osteoarthritis GI Medical History: Crohns Disease, Pancreatitis, Other History: Renal Disease, Other Psycho-Social History: Anxiety, Depression Female Reproductive Disorders: Other Other Medical History: Pt had surgery for ahdesions in the gut and had complications. She has a colostomy and superpubic cather. kidney insufficency, pancreatitis. Pt gets infusions with potassium and magnesium - Past Surgical History Past Surgical History: Yes (ileostomy, suprapubic catheter) Neuro Surgical History: No Pertinent History Cardiac: No Pertinent History Respiratory: No Pertinent History Gastrointestinal: Bowel Surgery, Cholecystectomy Genitourinary: Other Musculoskeletal: No Pertinent History Female Surgical History: Hysterectomy Other Surgical History: has 120 cm of small bowel,illiostomy, urostomy following compications after surgery to remove adhesions - Social History Smoking Status: Current every day smoker How long have you smoked: 25 years Exposure to second hand smoke: Yes Drug Use: none Patient Lives Alone: No - Female History Hx Last Menstrual Period: total hysterectomy Hx Now: No - Nursing Vital Signs Nursing Vital Signs: Initial Vital Signs Temperature 98.3 F 11/24/18 15:22 Pulse Rate 86 11/24/18 15:22 Respiratory Rate 16 11/24/18 15:22 Blood Pressure 105/75 11/24/18 15:22 O2 Sat by Pulse Oximetry 95 11/24/18 15:22 Pain Scale Pain Intensity 2 - Physical Exam General Appearance: no apparent distress, alert Eye Exam: PERRL/EOMI, eyes nml inspection Ears, Nose, Throat Exam: normal ENT inspection, TMs normal, pharynx normal, moist mucous membranes Neck Exam: normal inspection, non-tender, supple, full range of motion Respiratory Exam: normal breath sounds, lungs clear, No respiratory distress Cardiovascular Exam: regular rate/rhythm, normal heart sounds, normal peripheral pulses, capillary refill <2 sec (genitourinary a) Gastrointestinal/Abdomen Exam: soft, normal bowel sounds, No tenderness, No mass Back Exam: normal inspection, normal range of motion, No CVA tenderness, No vertebral tenderness Extremity Exam: normal inspection, normal range of motion, pelvis stable Neurologic Exam: alert, oriented x 3, cooperative, service observer chief II-XII nml as tested, normal mood/affect, nml cerebellar function, nml station & gait, sensation nml, No motor deficits Skin Exam: normal color, warm, dry, No rash SpO2 Interpretation: normal (95%) SpO2: 95 - Course Nursing assessment & vital signs reviewed: Yes EKG Interpreted by Me: RATE (84 bpm), Sinus Rhythm, NORMAL AXIS, Other (EKG: Sinus rhythm, 84 bpm, normal axis, no acute ST or T wave changes noted) Ordered Tests: Active Orders 24 hr Category Date Time Status EKG-ER Only STAT Care 11/24/18 15:39 Active IV Insertion STAT Care 11/24/18 15:39 Active AMYLASE Stat Lab 11/24/18 16:22 Completed CBC W DIFF Stat Lab 11/24/18 16:22 Completed CMP Stat Lab 11/24/18 16:22 Completed LIPASE Stat Lab 11/24/18 16:22 Completed MAG [MAGNESIUM] Stat Lab 11/24/18 16:22 Completed TROPONIN Q3H Lab 11/24/18 16:22 Completed TROPONIN Q3H Lab 11/24/18 18:45 Ordered TROPONIN Q3H Lab 11/24/18 21:45 Ordered TROPONIN Q3H Lab 11/25/18 00:45 Ordered TROPONIN Q3H Lab 11/25/18 03:45 Ordered Medication Summary Generic Name Dose Route Start Last Admin Trade Name Freq PRN Reason Stop Dose Admin Sodium Chloride 1,000 mls @ 0 mls/hr 11/24/18 15:45 11/24/18 15:49 Sodium Chloride 0.9% 1000 Ml IV 12/24/18 15:44 25 mls/hr .Q0M YURI Administration KVO Lab/Rad Data: Laboratory Result Diagrams 11/24/18 16:11/24/18 16:22 Laboratory Results 11/24/18 11/24/18 11/24/18 Range/Units 16: 16: 16:22 WBC (4.0-10.5) K/mm3 RBC (4.1-5.4) M/mm3 Hgb (12.0-16.0) gm/dl Hct (35-47) % MCV (78-100) fl MCH (26-32) pg MCHC (32-36) g/dl RDW (11.5-14.0) % Plt Count (150-450) K/mm3 MPV (6-9.5) fl Gran % (36.0-66.0) % Eos # (Auto) (0-0.5) Absolute Lymphs (auto) (1.0-4.6) Absolute Monos (auto) (0.0-1.3) Lymphocytes % (24.0-44.0) % Monocytes % (0.0-12.0) % Eosinophils % (0.00-5.0) % Basophils % (0.0-0.4) % Absolute Granulocytes (1.4-6.9) Basophils # (0-0.4) Sodium (137-145) mmol/L Potassium (3.5-5.1) mmol/L Chloride (98-107) mmol/L Carbon Dioxide (22-30) mmol/L Anion Gap (5-15) MEQ/L BUN (7-17) mg/dL Creatinine (0.52-1.04) mg/dL Estimated GFR ML/MIN Glucose (74-106) mg/dL Calcium (8.4-10.2) mg/dL Magnesium 2.8 H (1.6-2.3) mg/dL Total Bilirubin (0.2-1.3) mg/dL AST (14-36) U/L ALT (0-35) U/L Alkaline Phosphatase (38-126) U/L Troponin I < 0.012 (0.000-0.034) ng/mL Serum Total Protein (6.3-8.2) g/dL Albumin (3.5-5.0) g/dL Amylase (30-110) U/L Lipase 409 H (23-300) U/L 11/24/18 11/24/18 Range/Units 16:22 16:22 WBC 6.5 (4.0-10.5) K/mm3 RBC 4.01 L (4.1-5.4) M/mm3 Hgb 11.4 L (12.0-16.0) gm/dl Hct 35.7 (35-47) % MCV 89.0 (78-100) fl MCH 28.4 (26-32) pg MCHC 31.9 L (32-36) g/dl RDW 14.7 H (11.5-14.0) % Plt Count 283 (150-450) K/mm3 MPV 9.5 (6-9.5) fl Gran % 51.0 (36.0-66.0) % Eos # (Auto) 0.34 (0-0.5) Absolute Lymphs (auto) 2.21 (1.0-4.6) Absolute Monos (auto) 0.58 (0.0-1.3) Lymphocytes % 34.1 (24.0-44.0) % Monocytes % 8.9 (0.0-12.0) % Eosinophils % 5.2 H (0.00-5.0) % Basophils % 0.8 (0.0-0.4) % Absolute Granulocytes 3.31 (1.4-6.9) Basophils # 0.05 (0-0.4) Sodium 141 (137-145) mmol/L Potassium 4.5 (3.5-5.1) mmol/L Chloride 105 (98-107) mmol/L Carbon Dioxide 24 (22-30) mmol/L Anion Gap 15.6 H (5-15) MEQ/L BUN 17 (7-17) mg/dL Creatinine 1.24 H (0.52-1.04) mg/dL Estimated GFR 48.1 ML/MIN Glucose 119 H (74-106) mg/dL Calcium 9.1 (8.4-10.2) mg/dL Magnesium (1.6-2.3) mg/dL Total Bilirubin 0.30 (0.2-1.3) mg/dL AST 28 (14-36) U/L ALT 25 (0-35) U/L Alkaline Phosphatase 122 (38-126) U/L Troponin I (0.000-0.034) ng/mL Serum Total Protein 7.5 (6.3-8.2) g/dL Albumin 4.2 (3.5-5.0) g/dL Amylase 114 H (30-110) U/L Lipase (23-300) U/L - Progress Progress: improved Progress Note: 11/24/18 18:29 53-year-old white female with [facility] denies any complaints at this time she does states she is very tired. Patient's EKG is stable with sinus rhythm [address] or T wave changes CBC troponin essentially normal. I've discussed the patient's case with Dr. Haji she would like to place patient on observation telemetry continue with troponins - Departure Departure Disposition: Observation Clinical Impression: Tachycardia Condition: Fair Critical Care Time: No Referrals: JOSE HAJI [Primary Care Provider] -
[2018-11-24 16:24] LABS: BASOPHIL % 0.8 % (0.0-0.4); Basophil (Absolute #) 0.05 (0-0.4); Eosinophil % 5.2 % (0.00-5.0); Eosinophil (Absolute #) 0.34 (0-0.5); Granulocyte Absolute (ANC) 3.31 (1.4-6.9); Hematocrit 35.7 % (35-47); Hemoglobin 11.4 gm/dl (12.0-16.0); Lymphocyte (Absolute #) 2.21 (1.0-4.6); Lymphocytes % 34.1 % (24.0-44.0); Mean Corpuscular Hemoglobin 28.4 pg (26-32); Mean Corpuscular Hgb Concent. 31.9 g/dl (32-36); Mean Platelet Volume 9.5 fl (6-9.5); Monocyte (Absolute #) 0.58 (0.0-1.3); Monocytes % 8.9 % (0.0-12.0); Platelet Count 283 K/mm3 (150-450); Red Blood Count 4.01 M/mm3 (4.1-5.4); Red Cell Distribution Width 14.7 % (11.5-14.0); White Blood Count 6.5 K/mm3 (4.0-10.5)
[2018-11-24 16:36] LABS: ALBUMIN 4.2 g/dL (3.5-5.0); ANION GAP 15.6 MEQ/L (5-15); BILIRUBIN,TOTAL 0.3 mg/dL (0.2-1.3); Calcium 9.1 mg/dL (8.4-10.2); Creatinine 1 1.24 mg/dL (0.52-1.04); Potassium 4.5 mmol/L (3.5-5.1); Total Protein 7.5 g/dL (6.3-8.2)
[2018-11-24] MEDS: Zofran 4 MG/2 ML VIAL IV PRN (20:41)
[2018-11-24] MEDS: MORPHINE SULFATE 10 MG/ML IV PRN (20:41)
[2018-11-24] MEDS: ZOLOFT 50 MG TABLET PO SCH (20:41)
[2018-11-24] MEDS: PYRIDIUM 200 MG PO SCH (20:42)
[2018-11-24] MEDS: BUSPAR 5 MG PO SCH (20:42)
[2018-11-24] MEDS: Valium 5 MG PO SCH (20:42)
[2018-11-24] MEDS: PANCRELIPASE DR 5,000 UNIT CAP PO SCH (20:42)
[2018-11-24] MEDS ORDERED: TYLENOL 325 MG PO PRN (22:33)
[2018-11-24] MEDS ORDERED: TYLENOL 325 MG ONE (22:35)
[2018-11-25] MEDS: MORPHINE SULFATE 10 MG/ML IV PRN ×4 (00:57→14:44)
[2018-11-25 04:33] LABS: AMYLASE 110 U/L (30-110); BASOPHIL % 1.1 % (0.0-0.4); Basophil (Absolute #) 0.07 (0-0.4); Eosinophil % 5.7 % (0.00-5.0); Eosinophil (Absolute #) 0.35 (0-0.5); Granulocyte Absolute (ANC) 2.81 (1.4-6.9); Granulocytes % 45.8 % (36.0-66.0); Hematocrit 33.2 % (35-47); Hemoglobin 10.3 gm/dl (12.0-16.0); LIPASE 425 U/L (23-300); Lymphocyte (Absolute #) 2.41 (1.0-4.6); Lymphocytes % 39.3 % (24.0-44.0); Mean Cell Volume 91.7 fl (78-100); Mean Platelet Volume 9.9 fl (6-9.5); Monocytes % 8.1 % (0.0-12.0); Platelet Count 273 K/mm3 (150-450); Red Blood Count 3.62 M/mm3 (4.1-5.4); White Blood Count 6.1 K/mm3 (4.0-10.5)
[2018-11-25 04:34] LABS: ALBUMIN 3.9 g/dL (3.5-5.0); ALKALINE PHOSPHATASE 110 U/L (38-126); ANION GAP 14.7 MEQ/L (5-15); BLOOD UREA NITROGEN 17 mg/dL (7-17); CHLORIDE 103 mmol/L (98-107); Calcium 8.9 mg/dL (8.4-10.2); Carbon Dioxide 26 mmol/L (22-30); Creatinine 1 1.02 mg/dL (0.52-1.04); Glucose 95 mg/dL (74-106); SGOT/AST 28 U/L (14-36); SGPT/ALT 24 U/L (0-35); SODIUM 139 mmol/L (137-145)
[2018-11-25 04:39] LABS: Mean Corpuscular Hemoglobin 28.4 pg (26-32)
[2018-11-25] MEDS: Zofran 4 MG/2 ML VIAL IV PRN (06:21)
--- NOTE | 2018-11-25 09:00 | PCM.HP ---
History of Present Illness - Chief Complaint Chief Complaint: Tachycardia History of Present Illness: is a 53 year old female pt of mine from [facility] with PMHx Crohn's disease s/p colectomy with ileostomy, with subsequent bladder damage and suprapubic cather, with renal insufficiency (on IV fluids 2-3x/wk under direction of Dr. Orourke) and recurrent pancreatitis who was in infusion yesterday and had a HR of 180. She had some chest pressure but nothing unusual for her, she states. She was very drowsy; in fact went to sleep in infusion and woke up in the ER. Her EKG is nonacute, HR 83, NSR. Troponins neg x 5. Overnight there were no episodes of tachycardia. When I speak with the pt, she admits to some vomiting yesterday. Has been having epigstric and suprapubic pain. Has bladder spasms, with pain reaching 10 /10; seeing urology in [place]. Had her catheter changed 2d ago there and was told to take pyridium for 1 week; urine culture contaminated and pt was not started on antibiotics. Pt's amylase and lipase elevated mildly in ER. This morning the lipase is still >400 (425, up from 409 on admission). - Review of Systems Constitutional: No Fever Cardiac: Chest Pain Abdominal/Gastrointestinal: Abdominal Pain, Vomiting, Other (ostomy output normal) Genitourinary Symptoms: Incontinence (leaking around her catheter), Other ( suprapubic pain) Medications & Allergies Home Medications: Home Medication List Diazepam 5 mg [Valium 5 MG] 10 mg PO TID 12/24/16 [History Confirmed 11/24] Pregabalin [Lyrica] 100 mg PO BID 12/24/16 [History Confirmed 11/24/18] Promethazine HCl 25 mg [Phenergan 25 mg] 25 mg PO BIDPRN PRN 01/07/17 [ History Confirmed 11/24/18] Heparin Flush 500 units/5 ml [Heparin Lock Flush 100 Units/ml 5ml Syringe] 500 units PORT FLUSH PRN PRN disp.syrin 08/10/17 [Rx Confirmed 11/24/18] Lipase/Protease/Amylase [Concepcion Teran 24,000 Units Capsule] 6,000 udcap PO TID 08/22 [History Confirmed 11/24/18] Tolterodine Tartrate [Tolterodine Tartrate ER] 4 mg PO DAILY 01/07/18 [History Confirmed 11/24/18] Buspirone HCl 5 mg [Buspar 5 mg] 10 mg PO TID 01/09/18 [History Confirmed 11/24/18] Hydrocodone Bit/Acetaminophen [[place] 10-325 Tablet] 1 each PO Q6H PRN 02/03/18 [ History Confirmed 11/24/18] Metoclopramide HCl [Reglan] 10 mg PO DAILY 03/05/18 [History Confirmed 11/24/18] Furosemide 40 mg [Lasix 40 MG] 40 mg PO DAILY PRN PRN 04/06/18 [History Confirmed 11/24/18] Ondansetron ODT 4 MG [Zofran Odt 4 mg] 4 mg PO Q6H PRN PRN 04/06/18 [ History Confirmed 11/24/18] Loperamide HCl 2 mg [Imodium 2 mg] 2 mg PO TID PRN 08/05/18 [History Confirmed 11/24/18] Esomeprazole Magnesium [Nexium] 40 mg PO DAILY 09/07/18 [History Confirmed 11/24] Spironolactone 25 mg [Aldactone 25 MG] 25 mg PO DAILY 09/23/18 [History Confirmed 11/24/18] Sertraline HCl [Zoloft] 100 mg PO BID 11/06/18 [History Confirmed 11/24/18] Phenazopyridine HCl [Pyridium] 100 mg PO TID 11/24/18 [History Confirmed ] Sucralfate 1 gm [Carafate 1 GM] 1 g PO AC 11/24/18 [History Confirmed ] Allergies/Adverse Reactions: Allergies Allergy/AdvReac Type Severity Reaction Status Date / Time oxybutynin Allergy Severe Verified 11/24/18 19:54 acetaminophen [From Percocet] Allergy Intermediate Hives Verified 11/24/18 19:54 oxycodone [From Percocet] Allergy Intermediate Hives Verified 04/23/19 19:54 ampicillin Allergy Mild Verified 11/24/18 19:54 duloxetine [From Cymbalta] Allergy Mild Verified 11/24/18 19:54 erythromycin base Allergy Mild Verified 11/24/18 19:54 [Erythromycin Base] - Past Medical History Past Medical History: Yes Neurological History: Peripheral Neuropathy ENT History: No Pertinent History Cardiac History: No Pertinent History Respiratory History: No Pertinent History Endocrine Medical History: Adrenal Insufficiency, Other Musculoskelatal History: Osteoarthritis GI Medical History: Crohns Disease, Pancreatitis, Other History: Renal Disease, Other Pyscho-Social History: Anxiety, Depression Reproductive Disorders: Other Comment: Pt had surgery for ahdesions in the gut and had complications. She has a colostomy and superpubic cather. kidney insufficency, pancreatitis. Pt gets infusions with potassium and magnesium - Female History Hx Last Menstrual Period: total hysterectomy Are you now?: No - Past Surgical History Past Surgical History: Yes (ileostomy, suprapubic catheter) Neuro Surgical History: No Pertinent History Cardiac History: No Pertinent History Respiratory Surgery: No Pertinent History GI Surgical History: Bowel Surgery, Cholecystectomy Genitourinary Surgical Hx: Other Musculskeletal Surgical Hx: No Pertinent History Female Surgical History: Hysterectomy Other Surgical History: has 120 cm of small bowel,illiostomy, urostomy following compications after surgery to remove adhesions - Social History Smoking Status: Current every day smoker How long have you smoked: 20 yrs Exposure to second hand smoke: Yes Alcohol: None Drug Use: none - Physical Exam Vital Signs: Vital Signs - 24 hr Temp Pulse Pulse Resp BP Pulse Ox 11/25/18 08:00 98.7 F 85 16 115/69 95 11/25/18 07:25 96 11/25/18 04:00 98.0 F 76 18 96/58 94 L 11/25/18 00:00 98.2 F 88 18 103/57 97 11/24/18 20:15 98.1 F 75 18 107/70 95 11/24/18 19:45 96 11/24/18 18:30 95 11/24/18 18:25 78 18 117/77 98 11/24/18 17:01 80 18 114/75 93 L 11/24/18 15:22 98.3 F 90 86 16 105/75 95 General Appearance: mild distress, alert Neurologic Exam: oriented x 3, cooperative Eye Exam: eyes nml inspection Ears, Nose, Throat Exam: moist mucous membranes Neck Exam: normal inspection Respiratory Exam: normal breath sounds, lungs clear, No crackles/rales, No rhonchi, No wheezing Cardiovascular Exam: regular rate/rhythm, normal heart sounds, No murmur Gastrointestinal/Abdomen Exam: soft, tenderness (epigastrum and suprapubic), guarding, other (ostomy in RLQ; suprapubic catheter present), No normal bowel sounds (hypoactive but present), No distention, No mass, No rebound Back Exam: normal inspection, No rash Results - Labs Lab/Micro Results: Lab Results-Last 24 Hours 11/24/18 11/24/18 11/24/18 Range/Units 16:22 16:22 16:22 WBC 6.5 (4.0-10.5) K/mm3 RBC 4.01 L (4.1-5.4) M/mm3 Hgb 11.4 L (12.0-16.0) gm/dl Hct 35.7 (35-47) % MCV 89.0 (78-100) fl MCH 28.4 (26-32) pg MCHC 31.9 L (32-36) g/dl RDW 14.7 H (11.5-14.0) % Plt Count 283 (150-450) K/mm3 MPV 9.5 (6-9.5) fl Gran % 51.0 (36.0-66.0) % Eos # (Auto) 0.34 (0-0.5) Absolute Lymphs (auto) 2.21 (1.0-4.6) Absolute Monos (auto) 0.58 (0.0-1.3) Lymphocytes % 34.1 (24.0-44.0) % Monocytes % 8.9 (0.0-12.0) % Eosinophils % 5.2 H (0.00-5.0) % Basophils % 0.8 (0.0-0.4) % Absolute Granulocytes 3.31 (1.4-6.9) Basophils # 0.05 (0-0.4) Sodium 141 (137-145) mmol/L Potassium 4.5 (3.5-5.1) mmol/L Chloride 105 (98-107) mmol/L Carbon Dioxide 24 (22-30) mmol/L Anion Gap 15.6 H (5-15) MEQ/L BUN 17 (7-17) mg/dL Creatinine 1.24 H (0.52-1.04) mg/dL Estimated GFR 48.1 ML/MIN Glucose 119 H (74-106) mg/dL Calcium 9.1 (8.4-10.2) mg/dL Magnesium (1.6-2.3) mg/dL Total Bilirubin 0.30 (0.2-1.3) mg/dL AST 28 (14-36) U/L ALT 25 (0-35) U/L Alkaline Phosphatase 122 (38-126) U/L Troponin I (0.000-0.034) ng/mL Serum Total Protein 7.5 (6.3-8.2) g/dL Albumin 4.2 (3.5-5.0) g/dL Amylase 114 H (30-110) U/L Lipase 409 H (23-300) U/L 11/24/18 11/24/18 11/24/18 Range/Units 16:22 16:22 19:18 WBC (4.0-10.5) K/mm3 RBC (4.1-5.4) M/mm3 Hgb (12.0-16.0) gm/dl Hct (35-47) % MCV (78-100) fl MCH (26-32) pg MCHC (32-36) g/dl RDW (11.5-14.0) % Plt Count (150-450) K/mm3 MPV (6-9.5) fl Gran % (36.0-66.0) % Eos # (Auto) (0-0.5) Absolute Lymphs (auto) (1.0-4.6) Absolute Monos (auto) (0.0-1.3) Lymphocytes % (24.0-44.0) % Monocytes % (0.0-12.0) % Eosinophils % (0.00-5.0) % Basophils % (0.0-0.4) % Absolute Granulocytes (1.4-6.9) Basophils # (0-0.4) Sodium (137-145) mmol/L Potassium (3.5-5.1) mmol/L Chloride (98-107) mmol/L Carbon Dioxide (22-30) mmol/L Anion Gap (5-15) MEQ/L BUN (7-17) mg/dL Creatinine (0.52-1.04) mg/dL Estimated GFR ML/MIN Glucose (74-106) mg/dL Calcium (8.4-10.2) mg/dL Magnesium 2.8 H (1.6-2.3) mg/dL Total Bilirubin (0.2-1.3) mg/dL AST (14-36) U/L ALT (0-35) U/L Alkaline Phosphatase (38-126) U/L Troponin I < 0.012 < 0.012 (0.000-0.034) ng/mL Serum Total Protein (6.3-8.2) g/dL Albumin (3.5-5.0) g/dL Amylase (30-110) U/L Lipase (23-300) U/L 11/24/18 11/25/18 11/25/18 Range/Units 21:58 00:51 04:07 WBC (4.0-10.5) K/mm3 RBC (4.1-5.4) M/mm3 Hgb (12.0-16.0) gm/dl Hct (35-47) % MCV (78-100) fl MCH (26-32) pg MCHC (32-36) g/dl RDW (11.5-14.0) % Plt Count (150-450) K/mm3 MPV (6-9.5) fl Gran % (36.0-66.0) % Eos # (Auto) (0-0.5) Absolute Lymphs (auto) (1.0-4.6) Absolute Monos (auto) (0.0-1.3) Lymphocytes % (24.0-44.0) % Monocytes % (0.0-12.0) % Eosinophils % (0.00-5.0) % Basophils % (0.0-0.4) % Absolute Granulocytes (1.4-6.9) Basophils # (0-0.4) Sodium (137-145) mmol/L Potassium (3.5-5.1) mmol/L Chloride (98-107) mmol/L Carbon Dioxide (22-30) mmol/L Anion Gap (5-15) MEQ/L BUN (7-17) mg/dL Creatinine (0.52-1.04) mg/dL Estimated GFR ML/MIN Glucose (74-106) mg/dL Calcium (8.4-10.2) mg/dL Magnesium (1.6-2.3) mg/dL Total Bilirubin (0.2-1.3) mg/dL AST (14-36) U/L ALT (0-35) U/L Alkaline Phosphatase (38-126) U/L Troponin I < 0.012 < 0.012 < 0.012 (0.000-0.034) ng/mL Serum Total Protein (6.3-8.2) g/dL Albumin (3.5-5.0) g/dL Amylase (30-110) U/L Lipase (23-300) U/L 11/25/18 11/25/18 11/25/18 Range/Units 04:07 04:07 04:07 WBC 6.1 (4.0-10.5) K/mm3 RBC 3.62 L (4.1-5.4) M/mm3 Hgb 10.3 L (12.0-16.0) gm/dl Hct 33.2 L (35-47) % MCV 91.7 (78-100) fl MCH 28.4 (26-32) pg MCHC 31.0 L (32-36) g/dl RDW 15.0 H (11.5-14.0) % Plt Count 273 (150-450) K/mm3 MPV 9.9 H (6-9.5) fl Gran % 45.8 (36.0-66.0) % Eos # (Auto) 0.35 (0-0.5) Absolute Lymphs (auto) 2.41 (1.0-4.6) Absolute Monos (auto) 0.50 (0.0-1.3) Lymphocytes % 39.3 (24.0-44.0) % Monocytes % 8.1 (0.0-12.0) % Eosinophils % 5.7 H (0.00-5.0) % Basophils % 1.1 (0.0-0.4) % Absolute Granulocytes 2.81 (1.4-6.9) Basophils # 0.07 (0-0.4) Sodium 139 (137-145) mmol/L Potassium 4.0 (3.5-5.1) mmol/L Chloride 103 (98-107) mmol/L Carbon Dioxide 26 (22-30) mmol/L Anion Gap 14.7 (5-15) MEQ/L BUN 17 (7-17) mg/dL Creatinine 1.02 (0.52-1.04) mg/dL Estimated GFR > 60.0 ML/MIN Glucose 95 (74-106) mg/dL Calcium 8.9 (8.4-10.2) mg/dL Magnesium (1.6-2.3) mg/dL Total Bilirubin 0.30 (0.2-1.3) mg/dL AST 28 (14-36) U/L ALT 24 (0-35) U/L Alkaline Phosphatase 110 (38-126) U/L Troponin I (0.000-0.034) ng/mL Serum Total Protein 7.0 (6.3-8.2) g/dL Albumin 3.9 (3.5-5.0) g/dL Amylase 110 (30-110) U/L Lipase 425 H (23-300) U/L Assessment/Plan (1) Chronic pancreatitis Current Visit: No Status: Chronic Qualifiers: Pancreatitis type: unspecified pancreatitis type Qualified Code(s): K86.1 - Other chronic pancreatitis Assessment & Plan: will give IV fluids today; if she is feeling much better later today, can d/c to home after notifying me. However, may need to stay and would recheck lipase in a.m. Code(s): K86.1 - OTHER CHRONIC PANCREATITIS (2) Tachycardia Current Visit: Yes Status: Resolved Assessment & Plan: none present overnight; will leave pt on telemetry while she's here. Code(s): R00.0 - TACHYCARDIA, UNSPECIFIED (3) Abdominal pain Current Visit: No Status: Acute Onset Date: ~07/17/18 Qualifiers: Abdominal location: epigastric Qualified Code(s): R10.13 - Epigastric pain Code(s): R10.9 - UNSPECIFIED ABDOMINAL PAIN (4) Peptic ulcer Current Visit: No Status: Chronic Assessment & Plan: on carafate. Code(s): K27.9 - PEPTIC ULC, SITE UNSP, UNSP AC OR CHR, W/O HEMOR OR PERF (5) Suprapubic catheter Current Visit: No Status: Chronic Code(s): Z93.59 - OTHER CYSTOSTOMY STATUS (6) Chronic kidney disease (CKD) stage G3a/A1, moderately decreased glomerular filtration rate (GFR) between 45-59 mL/min/1.73 square meter and albuminuria creatinine ratio less than 30 mg/g Current Visit: No Status: Chronic Assessment & Plan: eGFR good this morning Code(s): N18.3 - CHRONIC KIDNEY DISEASE, STAGE 3 (MODERATE) (7) Ileostomy in place Current Visit: No Status: Chronic Code(s): Z93.2 - ILEOSTOMY STATUS
[2018-11-25] MEDS: Norco 10/325 MG Tablet PO PRN ×2 (09:09→17:30)
[2018-11-25] MEDS: PYRIDIUM 200 MG PO SCH ×3 (09:21→21:32)
[2018-11-25] MEDS: BUSPAR 5 MG PO SCH ×3 (09:21→21:32)
[2018-11-25] MEDS: Valium 5 MG PO SCH ×3 (09:21→21:32)
[2018-11-25] MEDS: ZOLOFT 50 MG TABLET PO SCH ×2 (09:21→21:33)
[2018-11-25] MEDS ORDERED: PHENERGAN 25 MG PO PRN (10:05)
[2018-11-25] MEDS ORDERED: ZOFRAN ODT 4 MG PO PRN (10:05)
[2018-11-25] MEDS ORDERED: IMODIUM 2 MG PO PRN (10:15)
[2018-11-25] MEDS ORDERED: MEDICATION INTERVENTION MC SCH (10:30)
[2018-11-25] MEDS: Reglan 10 MG PO SCH (11:05)
[2018-11-25] MEDS: Aldactone 25 MG PO SCH (11:05)
[2018-11-25] MEDS: Protonix 40MG Tablet PO SCH (11:05)
[2018-11-25] MEDS: Carafate 1 GM PO SCH ×2 (11:05→16:12)
[2018-11-25] MEDS: PATIENT OWN MEDICATION PO SCH ×5 (11:06→21:34)
[2018-11-25] MEDS ORDERED: PROTEASE PO SCH (15:00)
[2018-11-25] MEDS ORDERED: LIPASE PO SCH (15:00)
[2018-11-25] MEDS ORDERED: AMYLASE PO SCH (15:00)
[2018-11-25] MEDS ORDERED: [UNRECOGNIZED DRUG - OTHER] PO SCH (15:00)
[2018-11-25] MEDS: Sodium Chloride 0.9% 1000 ML 1,000 ML IV SCH (16:12)
[2018-11-25 18:44] LABS: Appearance CLEAR (CLEAR); Bacteria RARE /HPF (NEGATIVE); Bilirubin NEGATIVE (NEGATIVE); Blood MODERATE Ery/ul (0-5); Glucose NEGATIVE (NEGATIVE); Ketones NEGATIVE (NEGATIVE); Leukocyte Esterase SMALL (NEGATIVE); Mucus SLIGHT /HPF (NEGATIVE); Nitrite POSITIVE (NEGATIVE); Protein,Urine Dip 30 (Negative); Specific Gravity 1.014 (1.005-1.025); Urobilinogen 4 mg/dL (0-1); WBC 26-50 /HPF (0-5)
[2018-11-25] MEDS: DILAUDID 2 MG INJECTION IV PRN (19:20)
[2018-11-25] MEDS ORDERED: ROCEPHIN 1 Gm-D5w 50 ml Bag** 1 G/50 ML IVPB IV SCH (22:00)
[2018-11-25] MEDS ORDERED: LYRICA 75 MG CAP PO SCH (22:00)
[2018-11-25] MEDS: PANCRELIPASE DR 5,000 UNIT CAP PO SCH (22:37)
[2018-11-26] MEDS: DILAUDID 2 MG INJECTION IV PRN ×9 (00:33→22:03)
[2018-11-26] MEDS: Valium 5 MG PO SCH ×3 (04:51→17:48)
[2018-11-26] MEDS: Sodium Chloride 0.9% 1000 ML 1,000 ML IV SCH ×3 (04:51→22:18)
[2018-11-26 06:07] LABS: BASOPHIL % 0.8 % (0.0-0.4); Basophil (Absolute #) 0.05 (0-0.4); Eosinophil % 6.4 % (0.00-5.0); Eosinophil (Absolute #) 0.39 (0-0.5); Granulocyte Absolute (ANC) 2.81 (1.4-6.9); Granulocytes % 46.5 % (36.0-66.0); Hematocrit 32.1 % (35-47); Hemoglobin 9.9 gm/dl (12.0-16.0); Lymphocyte (Absolute #) 2.31 (1.0-4.6); Lymphocytes % 38.2 % (24.0-44.0); Mean Cell Volume 92.2 fl (78-100); Mean Corpuscular Hemoglobin 28.4 pg (26-32); Mean Corpuscular Hgb Concent. 30.8 g/dl (32-36); Mean Platelet Volume 9.5 fl (6-9.5); Monocyte (Absolute #) 0.49 (0.0-1.3); Monocytes % 8.1 % (0.0-12.0); Platelet Count 262 K/mm3 (150-450); Red Blood Count 3.48 M/mm3 (4.1-5.4); Red Cell Distribution Width 14.6 % (11.5-14.0); White Blood Count 6.1 K/mm3 (4.0-10.5)
[2018-11-26 06:27] LABS: Calcium 8.8 mg/dL (8.4-10.2); Creatinine 1 1.06 mg/dL (0.52-1.04); MAGNESIUM 1.8 mg/dL (1.6-2.3); Potassium 4.6 mmol/L (3.5-5.1)
[2018-11-26] MEDS: Carafate 1 GM PO SCH ×3 (07:53→16:26)
[2018-11-26] MEDS: PATIENT OWN MEDICATION PO SCH ×6 (07:53→22:04)
[2018-11-26] MEDS ORDERED: DILAUDID 1 MG/1ML PCA IV PRN (08:45)
[2018-11-26] MEDS ORDERED: Sodium Chloride 0.9% 1000 ML 1,000 ML IV STA (08:46)
--- NOTE | 2018-11-26 08:52 | PCM.NOTE ---
Date and Time: 11/26/18846 Subjective Assessment: Pt's abdominal pain has increased, now ">10"/10. Starts in epigastrum/LUQ and radiates down to suprapubic area then vaginally. UA done yesterday with positive nitrites - pt started on IV rocephin. Has been tolerating some po. - Review of Systems Constitutional: No Fever Abdominal/Gastrointestinal: Abdominal Pain Objective Exam General Appearance: mild distress, alert Neurologic Exam: oriented x 3, cooperative Skin Exam: normal color, warm, dry, No rash Respiratory Exam: normal breath sounds, lungs clear, No crackles/rales, No rhonchi, No wheezing Cardiovascular Exam: regular rate/rhythm, normal heart sounds, No murmur Gastrointestinal/Abdomen Exam: soft, tenderness (throughout), guarding, No normal bowel sounds (hypoactive), No distention, No mass, No rebound Extremity Exam: normal inspection, No pedal edema, No swelling Back Exam: normal inspection, No rash OBJECTIVE DATA Vital Signs: Vital Signs - 24 hr Temp Pulse Resp BP Pulse Ox 11/26/18 07:22 97.7 F 77 18 118/69 96 11/26/18 06:38 96 11/26/18 03:57 98.4 F 78 19 124/71 96 11/26/18 00:00 98.3 F 77 12 118/64 95 11/25/18 20:00 98.5 F 74 18 114/69 98 11/25/18 16:00 98.4 F 82 16 125/69 95 11/25/18 12:00 98.6 F 80 20 132/76 95 Pain Assessment - Last Documented Pain Intensity 10 Pain Scale Used 0-10 Pain Scale Intake and Output: Intake & Output 11/23/18 11/24/18 11/25/18 11/26/18 11:59 11:59 11:59 11:59 Intake Total 1171 3557 Output Total 900 1190 Balance 271 2367 Weight 73 kg 74.6 kg Lab Results: Lab Results-Last 24 Hours 11/25/18 11/26/18 11/26/18 Range/Units 18:17 05:45 05:45 WBC 6.1 (4.0-10.5) K/mm3 RBC 3.48 L (4.1-5.4) M/mm3 Hgb 9.9 L (12.0-16.0) gm/dl Hct 32.1 L (35-47) % MCV 92.2 (78-100) fl MCH 28.4 (26-32) pg MCHC 30.8 L (32-36) g/dl RDW 14.6 H (11.5-14.0) % Plt Count 262 (150-450) K/mm3 MPV 9.5 (6-9.5) fl Gran % 46.5 (36.0-66.0) % Eos # (Auto) 0.39 (0-0.5) Absolute Lymphs (auto) 2.31 (1.0-4.6) Absolute Monos (auto) 0.49 (0.0-1.3) Lymphocytes % 38.2 (24.0-44.0) % Monocytes % 8.1 (0.0-12.0) % Eosinophils % 6.4 H (0.00-5.0) % Basophils % 0.8 (0.0-0.4) % Absolute Granulocytes 2.81 (1.4-6.9) Basophils # 0.05 (0-0.4) Sodium 140 (137-145) mmol/L Potassium 4.6 (3.5-5.1) mmol/L Chloride 103 (98-107) mmol/L Carbon Dioxide 26 (22-30) mmol/L Anion Gap 15.0 (5-15) MEQ/L BUN 16 (7-17) mg/dL Creatinine 1.06 H (0.52-1.04) mg/dL Estimated GFR 57.6 ML/MIN Glucose 92 (74-106) mg/dL Calcium 8.8 (8.4-10.2) mg/dL Magnesium 1.8 (1.6-2.3) mg/dL Lipase 479 H (23-300) U/L Urine Color CARMEN (YELLOW) Urine Appearance CLEAR (CLEAR) Urine pH 6.0 (5-6) Ur Specific [place] 1.014 (1.005-1.025) Urine Protein 30 (Negative) Urine Ketones NEGATIVE (NEGATIVE) Urine Blood MODERATE (0-5) Gregg/ul Urine Nitrite POSITIVE (NEGATIVE) Urine Bilirubin NEGATIVE (NEGATIVE) Urine Urobilinogen 4 (0-1) mg/dL Ur Leukocyte Esterase SMALL (NEGATIVE) Urine WBC (Auto) 26-50 (0-5) /HPF Urine RBC (Auto) 3-5 (0-2) /HPF U Epithel Cells (Auto) NONE (FEW) /HPF Urine Bacteria (Auto) RARE (NEGATIVE) /HPF Urine Mucus (Auto) SLIGHT (NEGATIVE) /HPF Urine Culture Reflexed YES (NO) Urine Glucose NEGATIVE (NEGATIVE) mg/dL Assessment/Plan (1) Chronic pancreatitis Current Visit: No Status: Chronic Qualifiers: Pancreatitis type: unspecified pancreatitis type Qualified Code(s): K86.1 - Other chronic pancreatitis Assessment & Plan: lipase is increased this morning. Her numbers are not generally highly elevated during her episodes of pancreatitis. We discussed avoiding high fat foods, but will keep her on "regular' diet since she has a limited diet anyway due to her ileostomy. Will give bolus of IV fluid then run NS at 125 cc/hr. Recheck in a.m. Code(s): K86.1 - OTHER CHRONIC PANCREATITIS (2) UTI (urinary tract infection) Current Visit: No Status: Acute Onset Date: ~07/17/18 Qualifiers: Urinary tract infection type: acute cystitis Hematuria presence: without hematuria Qualified Code(s): N30.00 - Acute cystitis without hematuria Assessment & Plan: on IV rocephin day #2. Cx pending. Code(s): N39.0 - URINARY TRACT INFECTION, SITE NOT SPECIFIED (3) Tachycardia Current Visit: Yes Status: Resolved Assessment & Plan: No episodes noted. Code(s): R00.0 - TACHYCARDIA, UNSPECIFIED (4) Abdominal pain Current Visit: No Status: Acute Onset Date: ~07/17/18 Qualifiers: Abdominal location: epigastric Qualified Code(s): R10.13 - Epigastric pain Assessment & Plan: I think likely related to pancreas and UTI. Code(s): R10.9 - UNSPECIFIED ABDOMINAL PAIN (5) Peptic ulcer Current Visit: No Status: Chronic Code(s): K27.9 - PEPTIC ULC, SITE UNSP, UNSP AC OR CHR, W/O HEMOR OR PERF (6) Suprapubic catheter Current Visit: No Status: Chronic Code(s): Z93.59 - OTHER CYSTOSTOMY STATUS (7) Chronic kidney disease (CKD) stage G3a/A1, moderately decreased glomerular filtration rate (GFR) between 45-59 mL/min/1.73 square meter and albuminuria creatinine ratio less than 30 mg/g Current Visit: No Status: Chronic Assessment & Plan: Consulted Dr. Orourke as he keeps such close observation on her fluid status. Code(s): N18.3 - CHRONIC KIDNEY DISEASE, STAGE 3 (MODERATE) (8) Ileostomy in place Current Visit: No Status: Chronic Code(s): Z93.2 - ILEOSTOMY STATUS
[2018-11-26] MEDS: PYRIDIUM 200 MG PO SCH ×3 (09:48→22:05)
[2018-11-26] MEDS: BUSPAR 5 MG PO SCH ×3 (09:49→22:03)
[2018-11-26] MEDS: Protonix 40MG Tablet PO SCH (09:49)
[2018-11-26] MEDS: ZOLOFT 50 MG TABLET PO SCH ×2 (09:50→22:07)
[2018-11-26] MEDS: Reglan 10 MG PO SCH (09:50)
[2018-11-26] MEDS: Aldactone 25 MG PO SCH (09:50)
[2018-11-26] MEDS ORDERED: NON-FORMULARY ITEM (Tolterodine Tartrate [Tolterodine Tartrate Er] 4 MG) PO SCH (10:00)
[2018-11-26] MEDS ORDERED: NON-FORMULARY ITEM (Esomeprazole Magnesium [Nexium] 40 MG) PO SCH (10:00)
[2018-11-26] MEDS: ROCEPHIN 1 Gm-D5w 50 ml Bag** 1 G/50 ML IVPB IV SCH (22:07)
[2018-11-27] MEDS: DILAUDID 2 MG INJECTION IV PRN ×7 (00:10→21:16)
[2018-11-27] MEDS: Sodium Chloride 0.9% 1000 ML 1,000 ML IV SCH ×4 (00:10→19:08)
[2018-11-27] MEDS: Valium 5 MG PO SCH ×3 (05:27→17:41)
[2018-11-27 07:56] LABS: Hemoglobin 9.4 gm/dl (12.0-16.0); Mean Cell Volume 92.3 fl (78-100); Mean Corpuscular Hemoglobin 28.9 pg (26-32); Mean Corpuscular Hgb Concent. 31.3 g/dl (32-36); Mean Platelet Volume 9.7 fl (6-9.5); Platelet Count 251 K/mm3 (150-450); Red Blood Count 3.25 M/mm3 (4.1-5.4); Red Cell Distribution Width 14.6 % (11.5-14.0); White Blood Count 5.7 K/mm3 (4.0-10.5)
[2018-11-27 08:15] LABS: ALBUMIN 3.5 g/dL (3.5-5.0); ALKALINE PHOSPHATASE 97 U/L (38-126); ANION GAP 12.8 MEQ/L (5-15); BLOOD UREA NITROGEN 10 mg/dL (7-17); CHLORIDE 108 mmol/L (98-107); Calcium 8.4 mg/dL (8.4-10.2); Carbon Dioxide 23 mmol/L (22-30); Glucose 91 mg/dL (74-106); LIPASE 361 U/L (23-300); Potassium 4.1 mmol/L (3.5-5.1); SGOT/AST 20 U/L (14-36); SGPT/ALT 18 U/L (0-35); SODIUM 140 mmol/L (137-145); Total Protein 6.6 g/dL (6.3-8.2)
[2018-11-27] MEDS: PATIENT OWN MEDICATION PO SCH ×6 (08:16→20:25)
[2018-11-27] MEDS: Carafate 1 GM PO SCH ×3 (08:16→16:57)
--- NOTE | 2018-11-27 08:51 | PCM.NOTE ---
Date and Time: 11/27/18 08 Subjective Assessment: She is feeling somewhat better, 8.5/10 this morning. Has been up out of bed and walking. Still having bladder spasm.s - Review of Systems Constitutional: No Fever Abdominal/Gastrointestinal: Abdominal Pain Objective Exam General Appearance: no apparent distress, alert, other (sitting up in chair) Neurologic Exam: oriented x 3, cooperative Skin Exam: normal color, warm, dry, No rash Respiratory Exam: normal breath sounds, lungs clear, No crackles/rales, No rhonchi, No wheezing Cardiovascular Exam: regular rate/rhythm, normal heart sounds, No murmur Gastrointestinal/Abdomen Exam: soft, tenderness (RLQ), No normal bowel sounds ( hypoactive but present), No distention, No mass, No guarding, No rebound Extremity Exam: pedal edema (trace bilat) OBJECTIVE DATA Vital Signs: Vital Signs - 24 hr Temp Pulse Resp BP Pulse Ox 11/27/18 07:55 98.2 F 100 H 20 145/75 91 L 11/27/18 04:00 97.9 F 83 10 L 116/63 92 L 11/26/18 23:35 97.7 F 78 18 122/67 94 L 11/26/18 19:50 98.0 F 77 17 126/67 95 11/26/18 19:24 94 L 11/26/18 16:06 98.3 F 84 20 117/66 95 11/26/18 11:13 98.3 F 86 18 112/69 92 L Pain Assessment - Last Documented Pain Intensity 8 Pain Scale Used 0-10 Pain Scale Intake and Output: Intake & Output 11/24/18 11/25/18 11/26/18 11/27/18 11:59 11:59 11:59 11:59 Intake Total 1171 3917 5312 Output Total 900 1190 1850 Balance 271 2727 3462 Weight 73 kg 74.6 kg Lab Results: Lab Results-Last 24 Hours 11/27/18 11/27/18 11/27/18 Range/Units 07:30 07:45 07:45 WBC 5.7 (4.0-10.5) K/mm3 RBC 3.25 L (4.1-5.4) M/mm3 Hgb 9.4 L (12.0-16.0) gm/dl Hct 30.0 L (35-47) % MCV 92.3 (78-100) fl MCH 28.9 (26-32) pg MCHC 31.3 L (32-36) g/dl RDW 14.6 H (11.5-14.0) % Plt Count 251 (150-450) K/mm3 MPV 9.7 H (6-9.5) fl Sodium 140 (137-145) mmol/L Potassium 4.1 (3.5-5.1) mmol/L Chloride 108 H (98-107) mmol/L Carbon Dioxide 23 (22-30) mmol/L Anion Gap 12.8 (5-15) MEQ/L BUN 10 (7-17) mg/dL Creatinine 0.90 (0.52-1.04) mg/dL Estimated GFR > 60.0 ML/MIN Glucose 91 (74-106) mg/dL Calcium 8.4 (8.4-10.2) mg/dL Magnesium 1.5 L (1.6-2.3) mg/dL Total Bilirubin 0.20 (0.2-1.3) mg/dL AST 20 (14-36) U/L ALT 18 (0-35) U/L Alkaline Phosphatase 97 (38-126) U/L Serum Total Protein 6.6 (6.3-8.2) g/dL Albumin 3.5 (3.5-5.0) g/dL Lipase 361 H (23-300) U/L Assessment/Plan (1) Chronic pancreatitis Current Visit: No Status: Chronic Qualifiers: Pancreatitis type: unspecified pancreatitis type Qualified Code(s): K86.1 - Other chronic pancreatitis Assessment & Plan: Her lipase is improved this morning with increased IV fluids. Pain is somewhat better on palpation. Has been sleepy with the dilaudid, will decrease to 1 mg IV q3 h instead of q2h. recheck labs in a.m. Code(s): K86.1 - OTHER CHRONIC PANCREATITIS (2) UTI (urinary tract infection) Current Visit: No Status: Resolved Onset Date: ~07/17/18 Qualifiers: Urinary tract infection type: acute cystitis Hematuria presence: without hematuria Qualified Code(s): N30.00 - Acute cystitis without hematuria Code(s): N39.0 - URINARY TRACT INFECTION, SITE NOT SPECIFIED (3) Tachycardia Current Visit: Yes Status: Resolved Code(s): R00.0 - TACHYCARDIA, UNSPECIFIED (4) Abdominal pain Current Visit: No Status: Acute Onset Date: ~07/17/18 Qualifiers: Abdominal location: epigastric Qualified Code(s): R10.13 - Epigastric pain Code(s): R10.9 - UNSPECIFIED ABDOMINAL PAIN (5) Peptic ulcer Current Visit: No Status: Chronic Code(s): K27.9 - PEPTIC ULC, SITE UNSP, UNSP AC OR CHR, W/O HEMOR OR PERF (6) Suprapubic catheter Current Visit: No Status: Chronic Code(s): Z93.59 - OTHER CYSTOSTOMY STATUS (7) Chronic kidney disease (CKD) stage G3a/A1, moderately decreased glomerular filtration rate (GFR) between 45-59 mL/min/1.73 square meter and albuminuria creatinine ratio less than 30 mg/g Current Visit: No Status: Chronic Code(s): N18.3 - CHRONIC KIDNEY DISEASE, STAGE 3 (MODERATE) (8) Ileostomy in place Current Visit: No Status: Chronic Code(s): Z93.2 - ILEOSTOMY STATUS
[2018-11-27] MEDS: ZOLOFT 50 MG TABLET PO SCH ×2 (10:31→20:23)
[2018-11-27] MEDS: BUSPAR 5 MG PO SCH ×3 (10:31→20:23)
[2018-11-27] MEDS: PYRIDIUM 200 MG PO SCH ×3 (10:32→20:23)
[2018-11-27] MEDS: Aldactone 25 MG PO SCH (10:32)
[2018-11-27] MEDS: Protonix 40MG Tablet PO SCH (10:33)
[2018-11-27] MEDS: Reglan 10 MG PO SCH (10:33)
[2018-11-27] MEDS ORDERED: Magnesium 1 Gm / 100 Ml D5W*** 100 ML IV SCH (16:45)
[2018-11-27] MEDS ORDERED: Magnesium Sulfate 1 GM/2 ML VIAL*** 2 GM in Sodium Chloride 0.9% 100 ML IVPB 100 ML IV SCH (17:00)
[2018-11-27] MEDS: ROCEPHIN 1 Gm-D5w 50 ml Bag** 1 G/50 ML IVPB IV SCH (20:22)
[2018-11-28] MEDS: DILAUDID 2 MG INJECTION IV PRN ×3 (00:04→06:26)
[2018-11-28] MEDS: Sodium Chloride 0.9% 1000 ML 1,000 ML IV SCH ×3 (03:40→23:08)
[2018-11-28] MEDS: Valium 5 MG PO SCH ×3 (05:06→17:20)
[2018-11-28 06:06] LABS: Hematocrit 28.4 % (35-47); Hemoglobin 8.8 gm/dl (12.0-16.0); Mean Cell Volume 92.2 fl (78-100); Mean Platelet Volume 9.8 fl (6-9.5); Platelet Count 255 K/mm3 (150-450); Red Blood Count 3.08 M/mm3 (4.1-5.4); Red Cell Distribution Width 14.5 % (11.5-14.0); White Blood Count 4.8 K/mm3 (4.0-10.5)
[2018-11-28 06:10] LABS: Mean Corpuscular Hemoglobin 28.5 pg (26-32)
[2018-11-28 06:21] LABS: ALBUMIN 3.1 g/dL (3.5-5.0); ALKALINE PHOSPHATASE 86 U/L (38-126); ANION GAP 11.1 MEQ/L (5-15); BLOOD UREA NITROGEN 8 mg/dL (7-17); CHLORIDE 109 mmol/L (98-107); Calcium 8.2 mg/dL (8.4-10.2); Carbon Dioxide 23 mmol/L (22-30); Creatinine 1 0.82 mg/dL (0.52-1.04); Glucose 90 mg/dL (74-106); LIPASE 214 U/L (23-300); MAGNESIUM 1.8 mg/dL (1.6-2.3); Potassium 3.8 mmol/L (3.5-5.1); SGOT/AST 22 U/L (14-36); SGPT/ALT 16 U/L (0-35); SODIUM 140 mmol/L (137-145); Total Protein 6.1 g/dL (6.3-8.2)
[2018-11-28] MEDS ORDERED: DILAUDID 2 MG INJECTION ONE (06:22)
[2018-11-28] MEDS: PATIENT OWN MEDICATION PO SCH ×6 (07:59→22:39)
[2018-11-28] MEDS: Carafate 1 GM PO SCH ×3 (07:59→17:20)
[2018-11-28] MEDS: Norco 10/325 MG Tablet PO PRN (09:20)
[2018-11-28] MEDS: BUSPAR 5 MG PO SCH ×3 (09:21→22:39)
[2018-11-28] MEDS: Aldactone 25 MG PO SCH (09:21)
[2018-11-28] MEDS: Protonix 40MG Tablet PO SCH (09:23)
[2018-11-28] MEDS: PYRIDIUM 200 MG PO SCH ×3 (09:23→22:40)
[2018-11-28] MEDS: ZOLOFT 50 MG TABLET PO SCH ×2 (09:24→22:39)
[2018-11-28] MEDS: Reglan 10 MG PO SCH (09:24)
--- NOTE | 2018-11-28 10:33 | PCM.NOTE ---
Date and Time: 11/28/18 1028 Subjective Assessment: Pt's lipase is wnl this morning; however she is still having abdominal pain. It is 10/10 currently; she is due for pain medicine and has been walking the halls. she is tolerating po and did have a po norco at 0900 which is not helping. Her dilaudid works if it's q3h but several times it has been delayed to q3.5 or 4 h and that does not control her pain. - Review of Systems Constitutional: No Fever Abdominal/Gastrointestinal: Abdominal Pain Objective Exam General Appearance: mild distress, alert Neurologic Exam: oriented x 3, cooperative Skin Exam: normal color, warm, dry, No rash Eye Exam: eyes nml inspection Ears, Nose, Throat Exam: moist mucous membranes Respiratory Exam: normal breath sounds, lungs clear, No crackles/rales, No rhonchi, No wheezing Cardiovascular Exam: regular rate/rhythm, normal heart sounds, No murmur Gastrointestinal/Abdomen Exam: soft, normal bowel sounds, tenderness (throughout ), distention (mild, diffuse), No mass, No guarding, No rebound Extremity Exam: pedal edema (1+ pitting bilat) OBJECTIVE DATA Vital Signs: Vital Signs - 24 hr Temp Pulse Resp BP Pulse Ox 11/28/18 07:34 98.6 F 84 17 121/80 93 L 11/28/18 03:44 98.5 F 90 19 115/71 92 L 11/27/18 23:57 98.6 F 78 18 114/65 93 L 11/27/18 20:00 98.0 F 78 18 122/61 96 11/27/18 19:00 96 11/27/18 16:00 98.3 F 81 18 129/68 96 11/27/18 11:35 97 F 77 20 133/71 95 Pain Assessment - Last Documented Pain Intensity 10 Pain Scale Used 0-10 Pain Scale Intake and Output: Intake & Output 11/25/18 11/26/18 11/27/18 11/28/18 11:59 11:59 11:59 11:59 Intake Total 1171 3917 5672 4461 Output Total 900 1190 1850 4975 Balance 271 4775 2474 -558 Weight 73 kg 74.6 kg 80.1 kg 80.9 kg Lab Results: Lab Results-Last 24 Hours 11/28/18 11/28/18 Range/Units 05:45 05:45 WBC 4.8 (4.0-10.5) K/mm3 RBC 3.08 L (4.1-5.4) M/mm3 Hgb 8.8 L (12.0-16.0) gm/dl Hct 28.4 L (35-47) % MCV 92.2 (78-100) fl MCH 28.5 (26-32) pg MCHC 31.0 L (32-36) g/dl RDW 14.5 H (11.5-14.0) % Plt Count 255 (150-450) K/mm3 MPV 9.8 H (6-9.5) fl Sodium 140 (137-145) mmol/L Potassium 3.8 (3.5-5.1) mmol/L Chloride 109 H (98-107) mmol/L Carbon Dioxide 23 (22-30) mmol/L Anion Gap 11.1 (5-15) MEQ/L BUN 8 (7-17) mg/dL Creatinine 0.82 (0.52-1.04) mg/dL Estimated GFR > 60.0 ML/MIN Glucose 90 (74-106) mg/dL Calcium 8.2 L (8.4-10.2) mg/dL Magnesium 1.8 (1.6-2.3) mg/dL Total Bilirubin 0.10 L (0.2-1.3) mg/dL AST 22 (14-36) U/L ALT 16 (0-35) U/L Alkaline Phosphatase 86 (38-126) U/L Serum Total Protein 6.1 L (6.3-8.2) g/dL Albumin 3.1 L (3.5-5.0) g/dL Lipase 214 (23-300) U/L Assessment/Plan (1) Chronic pancreatitis Current Visit: No Status: Resolved Qualifiers: Pancreatitis type: unspecified pancreatitis type Qualified Code(s): K86.1 - Other chronic pancreatitis Assessment & Plan: The lipase is normal. However her pain is still present; see below. Code(s): K86.1 - OTHER CHRONIC PANCREATITIS (2) Abdominal pain Current Visit: No Status: Acute Onset Date: ~07/17/18 Qualifiers: Abdominal location: epigastric Qualified Code(s): R10.13 - Epigastric pain Assessment & Plan: could be due to bladder spasms. Her SO also notes this is just like when she had bladder polyps. When she saw urology on Friday she saw the ACCOUNTANT SYSTEMS, not the MD. Need to control her pain - she is usually in good spiritis despite her health issues but today she is not secondary to uncontrolled pain. Will change dilaudid to morphine (pt wanted to try this) - will start q2h x 2 doses (5mg) then q3h scheduled until her pain is better controlled. Can increase the amount if needed. Will call Dr. Staples on Friday and discuss with him (pt with recent Botox injections, which they discussed repeating sooner than 6 mo if needed). Could also be related to PUD, but pt is being medically treated for that. If her hemoccult is positive will consult surgery re: need for another EGD. Her last CT scan was in July; will consider repeating CT abd/pelvis with po contrast only if pt does not improe this afternoon. Code(s): R10.9 - UNSPECIFIED ABDOMINAL PAIN (3) Tachycardia Current Visit: Yes Status: Resolved Code(s): R00.0 - TACHYCARDIA, UNSPECIFIED (4) Peptic ulcer Current Visit: No Status: Chronic Assessment & Plan: Will check hemoccult. She is on carafate and pantoprazole 40mg/d. Code(s): K27.9 - PEPTIC ULC, SITE UNSP, UNSP AC OR CHR, W/O HEMOR OR PERF (5) Suprapubic catheter Current Visit: No Status: Chronic Code(s): Z93.59 - OTHER CYSTOSTOMY STATUS (6) Chronic kidney disease (CKD) stage G3a/A1, moderately decreased glomerular filtration rate (GFR) between 45-59 mL/min/1.73 square meter and albuminuria creatinine ratio less than 30 mg/g Current Visit: No Status: Chronic Assessment & Plan: Currently eGFR is wnl with her recent fluids, but will avoid CT contrast if possible due to risk of renal damage. Code(s): N18.3 - CHRONIC KIDNEY DISEASE, STAGE 3 (MODERATE) (7) Ileostomy in place Current Visit: No Status: Chronic Code(s): Z93.2 - ILEOSTOMY STATUS
[2018-11-28] MEDS: MORPHINE SULFATE 10 MG/ML IV SCH ×5 (10:52→23:09)
[2018-11-28] MEDS ORDERED: PHARMACY DOSING REQUIRED: VANCOMYCIN IV ONE (11:20)
[2018-11-28] MEDS ORDERED: VANCOCIN 1 GM VIAL*** 1 GM in Sodium Chloride 0.9% 250 ML 250 ML IV SCH (12:00)
[2018-11-28] MEDS ORDERED: BENADRYL 50 MG/ML IV ONE (12:34)
[2018-11-28] MEDS: BENADRYL 50 MG/ML IV PRN (22:42)
[2018-11-28] MEDS: VANCOCIN 500 MG VIAL*** 500 MG in Sodium Chloride 100ML MINI-BAG PLUS 100 ML IV SCH (22:42)
[2018-11-29] MEDS: MORPHINE SULFATE 10 MG/ML IV SCH ×8 (02:10→21:56)
[2018-11-29] MEDS: Valium 5 MG PO SCH ×3 (05:31→18:48)
[2018-11-29] MEDS: PATIENT OWN MEDICATION PO SCH ×6 (08:21→21:57)
[2018-11-29] MEDS: Carafate 1 GM PO SCH ×3 (08:21→15:52)
[2018-11-29] MEDS ORDERED: Magnesium Sulfate 1 GM/2 ML VIAL IV ONE (09:15)
[2018-11-29] MEDS: Protonix 40MG Tablet PO SCH (09:46)
[2018-11-29] MEDS: BUSPAR 5 MG PO SCH ×3 (09:46→21:56)
[2018-11-29] MEDS: ZOLOFT 50 MG TABLET PO SCH ×2 (09:46→21:59)
[2018-11-29] MEDS: PYRIDIUM 200 MG PO SCH ×3 (09:46→21:58)
[2018-11-29] MEDS: Reglan 10 MG PO SCH (09:49)
[2018-11-29] MEDS: Aldactone 25 MG PO SCH (09:49)
[2018-11-29 09:52] LABS: Hematocrit 31.3 % (35-47); Mean Cell Volume 89.7 fl (78-100); Mean Corpuscular Hgb Concent. 31.9 g/dl (32-36); Mean Platelet Volume 9.8 fl (6-9.5); Platelet Count 247 K/mm3 (150-450); Red Blood Count 3.49 M/mm3 (4.1-5.4); Red Cell Distribution Width 14.9 % (11.5-14.0); White Blood Count 5.5 K/mm3 (4.0-10.5)
[2018-11-29 09:59] LABS: ALBUMIN 3.5 g/dL (3.5-5.0); ALKALINE PHOSPHATASE 99 U/L (38-126); ANION GAP 12.6 MEQ/L (5-15); BLOOD UREA NITROGEN 7 mg/dL (7-17); CHLORIDE 110 mmol/L (98-107); Calcium 8.8 mg/dL (8.4-10.2); Carbon Dioxide 23 mmol/L (22-30); Creatinine 1 0.94 mg/dL (0.52-1.04); Glucose 126 mg/dL (74-106); Potassium 3.8 mmol/L (3.5-5.1); SGOT/AST 38 U/L (14-36); SGPT/ALT 26 U/L (0-35); SODIUM 141 mmol/L (137-145); Total Protein 6.8 g/dL (6.3-8.2)
[2018-11-29] MEDS ORDERED: MAGNESIUM SULFATE IV SCH (10:00)
[2018-11-29] MEDS ORDERED: D5W MINI IV SCH (10:00)
[2018-11-29 10:04] LABS: Mean Corpuscular Hemoglobin 28.6 pg (26-32)
[2018-11-29] MEDS: VANCOCIN 500 MG VIAL*** 500 MG in Sodium Chloride 100ML MINI-BAG PLUS 100 ML IV SCH ×2 (12:02→21:59)
[2018-11-29] MEDS: Sodium Chloride 0.9% 1000 ML 1,000 ML IV SCH (12:05)
[2018-11-29] MEDS: BENADRYL 50 MG/ML IV PRN ×2 (12:06→22:00)
--- NOTE | 2018-11-29 13:45 | PCM.NOTE ---
Date and Time: 11/29/18 1340 Subjective Assessment: Her pain is better on the scheduled morphine - currently 5/10 and received pain meds about 2.5h ago. Has been duglas po and up out of bed. When she's up, she is incontinent of urine. Has had large amount of urine output. Does c/o of swollen feet. Has appt to see Dr. Orourke tomorrow at [facility]. Magnesium was 1.5 this morning and has been repleted. Potassium holding steady at 3.8. - Review of Systems Constitutional: No Fever Abdominal/Gastrointestinal: No Vomiting Genitourinary Symptoms: Incontinence Objective Exam General Appearance: no apparent distress, alert Neurologic Exam: oriented x 3, cooperative Skin Exam: normal color, warm, dry, No rash Respiratory Exam: normal breath sounds, lungs clear, No crackles/rales, No rhonchi, No wheezing Cardiovascular Exam: regular rate/rhythm, normal heart sounds, No murmur Gastrointestinal/Abdomen Exam: soft, normal bowel sounds, tenderness (just inferior to umbilicus), other (ileostomy and suprapubic catheter in place), No distention, No mass, No guarding, No rebound OBJECTIVE DATA Vital Signs: Vital Signs - 24 hr Temp Pulse Resp BP Pulse Ox 11/29/18 12:00 98.1 F 86 18 111/70 93 L 11/29/18 11:27 97 11/29/18 07:39 98.1 F 73 18 129/61 92 L 11/29/18 04:00 98.8 F 66 17 125/69 94 L 11/29/18 00:00 98.5 F 76 15 125/64 98 11/28/18 20:10 96 11/28/18 20:00 98.2 F 69 16 109/70 96 11/28/18 19:00 96 11/28/18 16:00 98.1 F 81 18 117/87 94 L Oxygen-Last 24 hours O2 Percentage 2 Liters = 28% Pain Assessment - Last Documented Pain Intensity 7 Pain Scale Used 0-10 Pain Scale Intake and Output: Intake & Output 11/27/18 11/28/18 11/29/18 11/30/18 11:59 11:59 11:59 11:59 Intake Total 8014 4407 2006 Output Total 9158 0365 3384 Balance 3822 -514 307 Weight 80.1 kg 80.9 kg Lab Results: Lab Results-Last 24 Hours 11/29/18 11/29/18 11/29/18 Range/Units 05:50 09:38 09:38 WBC 5.5 (4.0-10.5) K/mm3 RBC 3.49 L (4.1-5.4) M/mm3 Hgb 10.0 L (12.0-16.0) gm/dl Hct 31.3 L (35-47) % MCV 89.7 (78-100) fl MCH 28.6 (26-32) pg MCHC 31.9 L (32-36) g/dl RDW 14.9 H (11.5-14.0) % Plt Count 247 (150-450) K/mm3 MPV 9.8 H (6-9.5) fl Sodium 141 (137-145) mmol/L Potassium 3.8 (3.5-5.1) mmol/L Chloride 110 H (98-107) mmol/L Carbon Dioxide 23 (22-30) mmol/L Anion Gap 12.6 (5-15) MEQ/L BUN 7 (7-17) mg/dL Creatinine 0.94 (0.52-1.04) mg/dL Estimated GFR > 60.0 ML/MIN Glucose 126 H (74-106) mg/dL Calcium 8.8 (8.4-10.2) mg/dL Magnesium 1.5 L (1.6-2.3) mg/dL Total Bilirubin 0.40 (0.2-1.3) mg/dL AST 38 H (14-36) U/L ALT 26 (0-35) U/L Alkaline Phosphatase 99 (38-126) U/L Serum Total Protein 6.8 (6.3-8.2) g/dL Albumin 3.5 (3.5-5.0) g/dL Assessment/Plan (1) Abdominal pain Current Visit: No Status: Acute Onset Date: ~07/17/18 Qualifiers: Abdominal location: epigastric Qualified Code(s): R10.13 - Epigastric pain Assessment & Plan: Have treated the chronic pancreatitis and have seen the lipase return to normal. Most likely related to bladder spasms, with her incontinence as well. Will discuss with Dr. Staples tomorrow. I discussed doing hemoccult testing with the nurse so we should be getting some of those results. Code(s): R10.9 - UNSPECIFIED ABDOMINAL PAIN (2) Chronic kidney disease (CKD) stage G3a/A1, moderately decreased glomerular filtration rate (GFR) between 45-59 mL/min/1.73 square meter and albuminuria creatinine ratio less than 30 mg/g Current Visit: No Status: Chronic Assessment & Plan: Will have someone call Dr. Orourke's office tomorrow and have him see her here. He is consulted. She is maintaining her potassium. Estimated GFR is normal on the current IV fluids. Code(s): N18.3 - CHRONIC KIDNEY DISEASE, STAGE 3 (MODERATE) (3) Peptic ulcer Current Visit: No Status: Chronic Code(s): K27.9 - PEPTIC ULC, SITE UNSP, UNSP AC OR CHR, W/O HEMOR OR PERF (4) Suprapubic catheter Current Visit: No Status: Chronic Code(s): Z93.59 - OTHER CYSTOSTOMY STATUS (5) Ileostomy in place Current Visit: No Status: Chronic Code(s): Z93.2 - ILEOSTOMY STATUS (6) Anemia Current Visit: Yes Status: Acute Qualifiers: Anemia type: due to chronic kidney disease Chronic kidney disease stage: stage 3 (moderate) Qualified Code(s): N18.3 - Chronic kidney disease, stage 3 (moderate); D63.1 - Anemia in chronic kidney disease Assessment & Plan: will continue to monitor. Code(s): D64.9 - ANEMIA, UNSPECIFIED (7) Hypomagnesemia Current Visit: Yes Status: Resolved Assessment & Plan: checking daily. Code(s): E83.42 - HYPOMAGNESEMIA
[2018-11-30] MEDS: MORPHINE SULFATE 10 MG/ML IV SCH ×8 (01:06→23:24)
[2018-11-30] MEDS: Sodium Chloride 0.9% 1000 ML 1,000 ML IV SCH ×2 (02:29→23:26)
[2018-11-30] MEDS: Valium 5 MG PO SCH ×3 (05:44→18:10)
[2018-11-30] MEDS ORDERED: Magnesium Sulfate 1 GM/2 ML VIAL IV ONE (07:30)
[2018-11-30] MEDS: PATIENT OWN MEDICATION PO SCH ×6 (08:09→22:25)
[2018-11-30] MEDS: Carafate 1 GM PO SCH ×3 (08:09→15:59)
[2018-11-30] MEDS: Magnesium 1 Gm / 100 Ml D5W*** 100 ML IV SCH ×2 (08:09→09:13)
[2018-11-30] MEDS ORDERED: TROUGH DRUG LEVELS IJ ONE (09:30)
[2018-11-30] MEDS: Aldactone 25 MG PO SCH (10:16)
[2018-11-30] MEDS: ZOLOFT 50 MG TABLET PO SCH ×2 (10:16→22:27)
[2018-11-30] MEDS: Reglan 10 MG PO SCH (10:16)
[2018-11-30] MEDS: BUSPAR 5 MG PO SCH ×3 (10:16→22:25)
[2018-11-30] MEDS: PYRIDIUM 200 MG PO SCH ×3 (10:16→22:26)
[2018-11-30] MEDS: PROTONIX 40 MG IV*** 80 MG in Sodium Chloride 0.9% 500 ML 500 ML IV SCH (10:17)
[2018-11-30] MEDS: BENADRYL 50 MG/ML IV PRN ×2 (11:17→23:41)
[2018-11-30] MEDS: VANCOCIN 500 MG VIAL*** 500 MG in Sodium Chloride 100ML MINI-BAG PLUS 100 ML IV SCH ×2 (11:18→23:34)
[2018-11-30] MEDS ORDERED: Lasix 40 MG/4 ML IV ONE (14:30)
[2018-11-30] MEDS ORDERED: [UNRECOGNIZED DRUG - OTHER] IV ONE ×3 (14:30)
[2018-11-30] MEDS ORDERED: MAGNESIUM SULFATE IV ONE ×3 (14:30)
[2018-11-30] MEDS ORDERED: POTASSIUM CHLORIDE IV ONE ×3 (14:30)
[2018-11-30] MEDS ORDERED: AlbuRx 25% 50ML VIAL*** 100 ML IV ONE (14:45)
[2018-11-30] MEDS ORDERED: MORPHINE SULFATE 10 MG/ML IV PRN (14:45)
[2018-11-30 19:05] LABS: Iron 33 ug/dL (37-170); Iron Saturation 7 % (20-39); TIBC 479 ug/dL (265-462)
[2018-11-30 20:04] LABS: Ferritin 9.23 ng/mL (11.1-264); Folate (Folic Acid) 9.05 ng/mL (2.76 - >20)
[2018-11-30] MEDS: Zofran 4 MG/2 ML VIAL IV PRN (20:25)
[2018-11-30] MEDS: PROTONIX 40 MG IV IV SCH (23:38)
[2018-12-01] MEDS: MORPHINE SULFATE 10 MG/ML IV SCH ×5 (02:55→11:56)
[2018-12-01] MEDS: Valium 5 MG PO SCH ×3 (05:39→17:47)
[2018-12-01 06:03] LABS: Hematocrit 29.9 % (35-47); Hemoglobin 9.4 gm/dl (12.0-16.0); Mean Cell Volume 91.2 fl (78-100); Mean Corpuscular Hgb Concent. 31.4 g/dl (32-36); Mean Platelet Volume 9.5 fl (6-9.5); Platelet Count 243 K/mm3 (150-450); Red Blood Count 3.28 M/mm3 (4.1-5.4); Red Cell Distribution Width 15.1 % (11.5-14.0); White Blood Count 5.1 K/mm3 (4.0-10.5)
[2018-12-01 06:07] LABS: Mean Corpuscular Hemoglobin 28.6 pg (26-32)
[2018-12-01 06:15] LABS: ALBUMIN 3.7 g/dL (3.5-5.0); ANION GAP 14.1 MEQ/L (5-15); BILIRUBIN,TOTAL 0.5 mg/dL (0.2-1.3); Calcium 8.9 mg/dL (8.4-10.2); Creatinine 1 1.03 mg/dL (0.52-1.04); MAGNESIUM 2.3 mg/dL (1.6-2.3); Potassium 3.9 mmol/L (3.5-5.1); Total Protein 6.8 g/dL (6.3-8.2)
--- NOTE | 2018-12-01 07:22 | PCM.NOTE ---
Date and Time: 12/01/18717 late entry for 11/30/18 0800 Subjective Assessment: Pt still having pain, better with the scheduled morphine. Jama po. up out of bed. Still with bladder spasms and incontinence of urine at times. Objective Exam General Appearance: no apparent distress, alert Neurologic Exam: oriented x 3, cooperative Skin Exam: normal color, warm, dry, No rash Respiratory Exam: normal breath sounds, lungs clear, No crackles/rales, No rhonchi Cardiovascular Exam: regular rate/rhythm, normal heart sounds, No murmur Gastrointestinal/Abdomen Exam: soft, normal bowel sounds, tenderness (suprapubic ), other (ileostomy on R; suprapubic catheter), No distention, No mass Extremity Exam: pedal edema, swelling (1+ pretibial edema bilat) OBJECTIVE DATA Vital Signs: Vital Signs - 24 hr Temp Pulse Resp BP Pulse Ox 12/01/18 04:00 100.1 F 77 14 112/64 96 12/01/18 00:00 96.9 F 75 16 103/60 94 L 11/30/18 23:00 94 L 11/30/18 21:08 94 L 11/30/18 20:00 99.1 F 96 H 18 123/63 94 L 11/30/18 16:00 98.4 F 79 16 116/71 95 11/30/18 12:00 98.1 F 84 17 132/81 94 L 11/30/18 07:50 98.1 F 95 H 17 114/79 93 L Oxygen-Last 24 hours O2 Percentage 2 Liters = 28% Pain Assessment - Last Documented Pain Intensity 3 Pain Scale Used 0-10 Pain Scale Intake and Output: Intake & Output 11/28/18 11/29/18 11/30/18 12/01/18 11:59 11:59 11:59 11:59 Intake Total 4104 2006 1107 9688 Output Total 3255 9879 8552 9120 Balance -514 404 -060 -3722 Weight 80.9 kg 80 kg 77 kg Lab Results: Lab Results-Last 24 Hours 11/30/18 11/30/18 11/30/18 Range/Units 09:30 Unknown Unknown WBC (4.0-10.5) K/mm3 RBC (4.1-5.4) M/mm3 Hgb (12.0-16.0) gm/dl Hct (35-47) % MCV (78-100) fl MCH (26-32) pg MCHC (32-36) g/dl RDW (11.5-14.0) % Plt Count (150-450) K/mm3 MPV (6-9.5) fl Sodium (137-145) mmol/L Potassium (3.5-5.1) mmol/L Chloride (98-107) mmol/L Carbon Dioxide (22-30) mmol/L Anion Gap (5-15) MEQ/L BUN (7-17) mg/dL Creatinine (0.52-1.04) mg/dL Estimated GFR ML/MIN Glucose (74-106) mg/dL Calcium (8.4-10.2) mg/dL Magnesium (1.6-2.3) mg/dL Iron 33 L (37-170) ug/dL TIBC 479 H (265-462) ug/dL Iron Saturation 7 L (20-39) % Ferritin 9.23 L (11.1-264) ng/mL Total Bilirubin (0.2-1.3) mg/dL AST (14-36) U/L ALT (0-35) U/L Alkaline Phosphatase (38-126) U/L Serum Total Protein (6.3-8.2) g/dL Albumin (3.5-5.0) g/dL Vitamin B12 320 (239-931) pg/mL Folic Acid 9.05 (2.76 - >20) ng/mL Vancomycin Trough 10.70 (10-20) ug/mL 12/01/18 12/01/18 Range/Units 05:33 05:33 WBC 5.1 (4.0-10.5) K/mm3 RBC 3.28 L (4.1-5.4) M/mm3 Hgb 9.4 L (12.0-16.0) gm/dl Hct 29.9 L (35-47) % MCV 91.2 (78-100) fl MCH 28.6 (26-32) pg MCHC 31.4 L (32-36) g/dl RDW 15.1 H (11.5-14.0) % Plt Count 243 (150-450) K/mm3 MPV 9.5 (6-9.5) fl Sodium 140 (137-145) mmol/L Potassium 3.9 (3.5-5.1) mmol/L Chloride 103 (98-107) mmol/L Carbon Dioxide 27 (22-30) mmol/L Anion Gap 14.1 (5-15) MEQ/L BUN 9 (7-17) mg/dL Creatinine 1.03 (0.52-1.04) mg/dL Estimated GFR 59.6 ML/MIN Glucose 88 (74-106) mg/dL Calcium 8.9 (8.4-10.2) mg/dL Magnesium 2.3 (1.6-2.3) mg/dL Iron (37-170) ug/dL TIBC (265-462) ug/dL Iron Saturation (20-39) % Ferritin (11.1-264) ng/mL Total Bilirubin 0.50 (0.2-1.3) mg/dL AST 33 (14-36) U/L ALT 25 (0-35) U/L Alkaline Phosphatase 112 (38-126) U/L Serum Total Protein 6.8 (6.3-8.2) g/dL Albumin 3.7 (3.5-5.0) g/dL Vitamin B12 (239-931) pg/mL Folic Acid (2.76 - >20) ng/mL Vancomycin Trough (10-20) ug/mL Multi-Disciplinary Progress Notes: Multi-Disciplinary Progress Notes 11/30/18 11:40 (created 11/30/18 12:12) Case Management Note by Myra Mahmood PLANS TO RETURN HOME TO PRE EPISODIC LEVEL OF [place]. DENIES ADDNL NEEDS FOR DISCHARGE. REPORTS THAT SHE HAS PLENTY OF FAMILY SUPPORT. Initialized on 11/30/18 12:12 - END OF NOTE Assessment/Plan (1) Abdominal pain Current Visit: No Status: Acute Onset Date: ~07/17/18 Qualifiers: Abdominal location: epigastric Qualified Code(s): R10.13 - Epigastric pain Assessment & Plan: Most likely d/t bladder spasms, and I will discuss possible tx with Dr. Staples today. Did have hemoccult + stool x 1, so will change her protonix from po to IV drip - will see if any improvement tomorrow. If not would resume protonix 40mg po daily. Code(s): R10.9 - UNSPECIFIED ABDOMINAL PAIN (2) Chronic kidney disease (CKD) stage G3a/A1, moderately decreased glomerular filtration rate (GFR) between 45-59 mL/min/1.73 square meter and albuminuria creatinine ratio less than 30 mg/g Current Visit: No Status: Chronic Assessment & Plan: Dr. Orourke to see pt today, thank you. Code(s): N18.3 - CHRONIC KIDNEY DISEASE, STAGE 3 (MODERATE) (3) Peptic ulcer Current Visit: No Status: Chronic Assessment & Plan: On EGD in Sep [address] Dr. Arguello found 2 small healing ulcerations. Pt on carafate and protonix. Code(s): K27.9 - PEPTIC ULC, SITE UNSP, UNSP AC OR CHR, W/O HEMOR OR PERF (4) Suprapubic catheter Current Visit: No Status: Chronic Code(s): Z93.59 - OTHER CYSTOSTOMY STATUS (5) Ileostomy in place Current Visit: No Status: Chronic Code(s): Z93.2 - ILEOSTOMY STATUS (6) Anemia Current Visit: Yes Status: Chronic Qualifiers: Anemia type: due to chronic kidney disease Chronic kidney disease stage: stage 3 (moderate) Qualified Code(s): N18.3 - Chronic kidney disease, stage 3 (moderate); D63.1 - Anemia in chronic kidney disease Code(s): D64.9 - ANEMIA, UNSPECIFIED (7) Hypomagnesemia Current Visit: Yes Status: Chronic Code(s): E83.42 - HYPOMAGNESEMIA
[2018-12-01] MEDS: Carafate 1 GM PO SCH ×3 (08:28→17:14)
[2018-12-01] MEDS: PATIENT OWN MEDICATION PO SCH ×6 (08:28→21:53)
--- NOTE | 2018-12-01 09:19 | PCM.NOTE ---
Date and Time: 12/01/18914 Subjective Assessment: Still having suprapubic pain, better with scheduled morphine. Jama po well. Dr. Orourke saw her yesterday, thank you. He did give IV lasix and turned her IVF to 10cc/hr. - Review of Systems Constitutional: No Fever Abdominal/Gastrointestinal: Abdominal Pain Objective Exam General Appearance: no apparent distress, alert Neurologic Exam: oriented x 3, cooperative Skin Exam: normal color, warm, dry, No rash Ears, Nose, Throat Exam: moist mucous membranes Respiratory Exam: normal breath sounds, lungs clear, No crackles/rales, No rhonchi, No wheezing Cardiovascular Exam: regular rate/rhythm, normal heart sounds, No murmur Gastrointestinal/Abdomen Exam: soft, normal bowel sounds, tenderness (suprapubic ), other (suprapubic catheter present. Ileostomy RLQ.) Extremity Exam: pedal edema (1+ bilat) Back Exam: normal inspection, No rash OBJECTIVE DATA Vital Signs: Vital Signs - 24 hr Temp Pulse Resp BP Pulse Ox 12/01/18 08:00 98.5 F 76 18 118/65 95 12/01/18 04:00 100.1 F 77 14 112/64 96 12/01/18 00:00 96.9 F 75 16 103/60 94 L 11/30/18 23:00 94 L 11/30/18 21:08 94 L 11/30/18 20:00 99.1 F 96 H 18 123/63 94 L 11/30/18 16:00 98.4 F 79 16 116/71 95 11/30/18 12:00 98.1 F 84 17 132/81 94 L Oxygen-Last 24 hours O2 Percentage 2 Liters = 28% O2 Percentage 2 Liters = 28% Pain Assessment - Last Documented Pain Intensity 3 Pain Scale Used 0-10 Pain Scale Intake and Output: Intake & Output 11/28/18 11/29/18 11/30/18 12/01/18 11:59 11:59 11:59 11:59 Intake Total 4467 2006 4481 9374 Output Total 3350 1656 5805 1347 Balance -514 655 -181 -4073 Weight 80.9 kg 80 kg 77 kg Lab Results: Lab Results-Last 24 Hours 11/30/18 11/30/18 11/30/18 Range/Units 09:30 Unknown Unknown WBC (4.0-10.5) K/mm3 RBC (4.1-5.4) M/mm3 Hgb (12.0-16.0) gm/dl Hct (35-47) % MCV (78-100) fl MCH (26-32) pg MCHC (32-36) g/dl RDW (11.5-14.0) % Plt Count (150-450) K/mm3 MPV (6-9.5) fl Sodium (137-145) mmol/L Potassium (3.5-5.1) mmol/L Chloride (98-107) mmol/L Carbon Dioxide (22-30) mmol/L Anion Gap (5-15) MEQ/L BUN (7-17) mg/dL Creatinine (0.52-1.04) mg/dL Estimated GFR ML/MIN Glucose (74-106) mg/dL Calcium (8.4-10.2) mg/dL Magnesium (1.6-2.3) mg/dL Iron 33 L (37-170) ug/dL TIBC 479 H (265-462) ug/dL Iron Saturation 7 L (20-39) % Ferritin 9.23 L (11.1-264) ng/mL Total Bilirubin (0.2-1.3) mg/dL AST (14-36) U/L ALT (0-35) U/L Alkaline Phosphatase (38-126) U/L Serum Total Protein (6.3-8.2) g/dL Albumin (3.5-5.0) g/dL Vitamin B12 320 (239-931) pg/mL Folic Acid 9.05 (2.76 - >20) ng/mL Vancomycin Trough 10.70 (10-20) ug/mL 12/01/18 12/01/18 Range/Units 05:33 05:33 WBC 5.1 (4.0-10.5) K/mm3 RBC 3.28 L (4.1-5.4) M/mm3 Hgb 9.4 L (12.0-16.0) gm/dl Hct 29.9 L (35-47) % MCV 91.2 (78-100) fl MCH 28.6 (26-32) pg MCHC 31.4 L (32-36) g/dl RDW 15.1 H (11.5-14.0) % Plt Count 243 (150-450) K/mm3 MPV 9.5 (6-9.5) fl Sodium 140 (137-145) mmol/L Potassium 3.9 (3.5-5.1) mmol/L Chloride 103 (98-107) mmol/L Carbon Dioxide 27 (22-30) mmol/L Anion Gap 14.1 (5-15) MEQ/L BUN 9 (7-17) mg/dL Creatinine 1.03 (0.52-1.04) mg/dL Estimated GFR 59.6 ML/MIN Glucose 88 (74-106) mg/dL Calcium 8.9 (8.4-10.2) mg/dL Magnesium 2.3 (1.6-2.3) mg/dL Iron (37-170) ug/dL TIBC (265-462) ug/dL Iron Saturation (20-39) % Ferritin (11.1-264) ng/mL Total Bilirubin 0.50 (0.2-1.3) mg/dL AST 33 (14-36) U/L ALT 25 (0-35) U/L Alkaline Phosphatase 112 (38-126) U/L Serum Total Protein 6.8 (6.3-8.2) g/dL Albumin 3.7 (3.5-5.0) g/dL Vitamin B12 (239-931) pg/mL Folic Acid (2.76 - >20) ng/mL Vancomycin Trough (10-20) ug/mL Multi-Disciplinary Progress Notes: Multi-Disciplinary Progress Notes 11/30/18 11:40 (created 11/30/18 12:12) Case Management Note by Myra Mahmood PLANS TO RETURN HOME TO PRE EPISODIC LEVEL OF [place]. DENIES ADDNL NEEDS FOR DISCHARGE. REPORTS THAT SHE HAS PLENTY OF FAMILY SUPPORT. Initialized on 11/30/18 12:12 - END OF NOTE Assessment/Plan (1) UTI (urinary tract infection) Current Visit: No Status: Resolved Onset Date: ~07/17/18 Qualifiers: Urinary tract infection type: acute cystitis Hematuria presence: without hematuria Qualified Code(s): N30.00 - Acute cystitis without hematuria Assessment & Plan: With S. epidermis, > 100,000 CFU and symptomatic. On IV vancomyin. Would like to finish 5d, which will be tomorrow. Code(s): N39.0 - URINARY TRACT INFECTION, SITE NOT SPECIFIED (2) Bladder spasms Current Visit: Yes Status: Acute Assessment & Plan: I spoke with Dr. Staples, her urologist from [place], and he recommended B &O suppositories for the bladder spasms. Once these are started (had to be ordered in), will make morphine prn and hopefully she can transition to po pain medicine. (3) Abdominal pain Current Visit: No Status: Acute Onset Date: ~07/17/18 Qualifiers: Abdominal location: epigastric Qualified Code(s): R10.13 - Epigastric pain Assessment & Plan: Treating for PUD and bladder spasm - more likely related to bladder. On Protonix 40mg IV BID. her hemoccult was positive x 1 and has known hx recent peptic ulcers. Code(s): R10.9 - UNSPECIFIED ABDOMINAL PAIN (4) Chronic kidney disease (CKD) stage G3a/A1, moderately decreased glomerular filtration rate (GFR) between 45-59 mL/min/1.73 square meter and albuminuria creatinine ratio less than 30 mg/g Current Visit: No Status: Chronic Assessment & Plan: per Dr. Orourke, thank you Code(s): N18.3 - CHRONIC KIDNEY DISEASE, STAGE 3 (MODERATE) (5) Peptic ulcer Current Visit: No Status: Chronic Code(s): K27.9 - PEPTIC ULC, SITE UNSP, UNSP AC OR CHR, W/O HEMOR OR PERF (6) Suprapubic catheter Current Visit: No Status: Chronic Code(s): Z93.59 - OTHER CYSTOSTOMY STATUS (7) Ileostomy in place Current Visit: No Status: Chronic Code(s): Z93.2 - ILEOSTOMY STATUS (8) Anemia Current Visit: Yes Status: Chronic Qualifiers: Anemia type: due to chronic kidney disease Chronic kidney disease stage: stage 3 (moderate) Qualified Code(s): N18.3 - Chronic kidney disease, stage 3 (moderate); D63.1 - Anemia in chronic kidney disease Code(s): D64.9 - ANEMIA, UNSPECIFIED (9) Hypomagnesemia Current Visit: Yes Status: Chronic Code(s): E83.42 - HYPOMAGNESEMIA
[2018-12-01] MEDS: Zofran 4 MG/2 ML VIAL IV PRN (10:24)
[2018-12-01] MEDS: Aldactone 25 MG PO SCH (10:26)
[2018-12-01] MEDS: BUSPAR 5 MG PO SCH ×3 (10:26→21:53)
[2018-12-01] MEDS: ZOLOFT 50 MG TABLET PO SCH ×2 (10:26→21:55)
[2018-12-01] MEDS: Reglan 10 MG PO SCH (10:27)
[2018-12-01] MEDS: PROTONIX 40 MG IV IV SCH ×2 (10:27→21:54)
[2018-12-01] MEDS: PYRIDIUM 200 MG PO SCH ×3 (10:27→21:54)
[2018-12-01] MEDS: BENADRYL 50 MG/ML IV PRN ×2 (10:28→21:55)
[2018-12-01] MEDS: VANCOCIN 500 MG VIAL*** 500 MG in Sodium Chloride 100ML MINI-BAG PLUS 100 ML IV SCH ×2 (10:28→21:55)
--- NOTE | 2018-12-01 11:18 | CONS ---
DATE: 11/30/2018 REASON FOR CONSULT: 1) Fluid electrolyte management. 2) Evaluation of edema. HISTORY: Miss Jeanna Woods is a very pleasant 53 year-old lady who is well known to me. The patient has history of ileostomy as well as urostomy. She has multiple medical problems including chronic kidney disease stage II/III, multiple episodes of acute kidney injury, multiple episodes of pancreatitis with chronic hypokalemia and hypomagnesemia. The patient gets infusion in the infusion center under my orders four to five times a week. The patient was admitted after being sent from the infusion center because of rapid heart rate. During the course of hospitalization she was noted to have abdominal pain, abdominal cramps. She was noted to have Staphylococcus epidermidis urinary tract infection. Hemoglobin levels were low at 10. Also stool for occult blood was positive. She was given IV fluids. Electrolytes remained persistently low and renal consultation was called. REVIEW OF SYSTEMS: The patient complains of leg swelling, complains of abdominal pain. No nausea or vomiting. Oral intake has been poor. In fact, she is an avid fluid intake and sometimes she drinks more she needs and swells up. No chest pain. No shortness of breath. Complains of puffy face. No focal weakness. No fall, trauma or bleeding from any of the orifices. Rest of the review was negative. All systems were reviewed and pertinent mentioned here. PAST MEDICAL HISTORY: Peripheral neuropathy. Chronic kidney disease stage II/III. Adrenal insufficiency. Osteoarthritis. Multiple episodes of acute kidney injury. Anxiety. Depression. History of pancreatitis. Recurrent electrolyte abnormality. PAST SURGICAL HISTORY: Small bowel resection and ileostomy. Urostomy. Lysis of adhesions. Cholecystectomy. Hysterectomy. HOME MEDICATIONS: Home medications were reviewed and hospital were reviewed. ALLERGIES: OXYBUTYNIN, ACETAMINOPHEN, OXYCODONE, AMPICILLIN, DULOXETINE, ERYTHROMYCIN. SOCIAL HISTORY: Every day smoker has smoked for more than 25 years. No alcohol abuse. No drug abuse. FAMILY HISTORY: No history of renal problems in the family. PHYSICAL EXAMINATION: Reveals a lady who was seen on the medical floor in no apparent distress, swollen. Blood pressure 121/60, pulse rate 74/minute, respiratory rate 17/minute. Saturating 95% on room air. HEENT: Normocephalic, atraumatic, pale conjunctivae, some periorbital edema is present. NECK: Supple. No JVD. CHEST: Clear to auscultation, decreased bilateral basilar breath sounds. CVS: S1, S2 normal. No rub or gallop. ABDOMEN: Soft, nontender. No guarding or rigidity. EXTREMITIES: +2 edema bilaterally. SKIN: No skin rash seen. Skin turgor is increased. MUSCULOSKELETAL: No acute joint swelling, redness, nontender. NEUROLOGIC: Nonfocal exam, alert, awake, oriented x3. LAB DATA AND TESTS: Labs were reviewed. Magnesium 1.5 and is being given every day. Potassium levels were 3.8, BUN and creatinine were normal. UA and cultures were reviewed. ASSESSMENT: 1) HYPOMAGNESEMIA: Etiology of hypomagnesemia could be because of dilutional effect of IV fluids. Also she persistently loses electrolytes in her ileostomy. Also it needs to be repleted aggressively. She has been getting 2 gm every day which may be equivalent to the losses but not enough to build up the levels. We will give 6 gm of magnesium IV today. Also would hold pantoprazole and change it to H2 vira which may help with the magnesium levels. 2) FLUID RETENTION AND EDEMA: Most likely because of aggressive IV fluid repletion. The patient is an avid fluid intaker. Hypoalbuminemia could be further contributing. We will reduce IV fluids to 10 cc/hour. We will give albumin. 3) HYPOKALEMIA: Continue Spironolactone, give 40 mEq of potassium IV. 4) ANEMIA, NOT OTHERWISE SPECIFIED: Occult blood work positive. Monitor iron studies. Assess the need for IV iron versus p.o. supplementation. 5) BLADDER SPASM: Continue Myrbetriq. The patient is also on morphine. 6) ABDOMINAL PAIN: Is this something chronic? She is on morphine. She is on hydrocodone. I will change the dose of morphine to every four hours and only PRN rather than scheduled dosing. 7) CHRONIC KIDNEY DISEASE STAGE III: Renal functions stable. Will closely follow up the patient. I have discussed with the patient.
[2018-12-01] MEDS ORDERED: MORPHINE SULFATE 10 MG/ML IV SCH (15:00)
[2018-12-01] MEDS: PROTONIX 40 MG IV*** 80 MG in Sodium Chloride 0.9% 500 ML 500 ML IV SCH (16:42)
[2018-12-01] MEDS: [UNRECOGNIZED DRUG - OTHER] RC SCH (17:48)
[2018-12-01] MEDS ORDERED: MORPHINE SULFATE 10 MG/ML IV PRN (18:00)
[2018-12-01] MEDS ORDERED: OPIUM PR SCH (18:00)
[2018-12-01] MEDS ORDERED: BELLADONNA PR SCH (18:00)
[2018-12-01] MEDS ORDERED: Norco 10/325 MG Tablet PO PRN (20:49)
[2018-12-02] MEDS: Valium 5 MG PO SCH ×3 (05:13→17:58)
[2018-12-02] MEDS: ZOLOFT 50 MG TABLET PO SCH ×2 (08:10→22:30)
[2018-12-02] MEDS: Carafate 1 GM PO SCH ×3 (08:11→16:17)
[2018-12-02] MEDS: BUSPAR 5 MG PO SCH ×3 (08:11→22:30)
[2018-12-02] MEDS: Reglan 10 MG PO SCH (08:11)
[2018-12-02] MEDS: Aldactone 25 MG PO SCH (08:11)
[2018-12-02] MEDS: PROTONIX 40 MG IV IV SCH (08:11)
[2018-12-02] MEDS: PATIENT OWN MEDICATION PO SCH ×6 (08:11→22:34)
[2018-12-02] MEDS: [UNRECOGNIZED DRUG - OTHER] RC SCH ×3 (08:15→20:14)
--- NOTE | 2018-12-02 08:16 | PCM.DS ---
Discharge Summary Date of Admission: 11/26/18 08:47 Admitting Physician: JOSE ZAMORANO Consults: Consults on Case 11/26/18 08:47 Consult Nephrology ROUTINE Primary Care Provider: JOSE ZAMORANO Allergies Allergies oxybutynin Allergy (Severe, Verified 11/24/18 19:54) pharyngeal swelling acetaminophen [From Percocet] Allergy (Intermediate, Verified 11/24/18 19:54) Hives Pt. stated " Immediatly after taking it I felt like I was coming out of my skin." oxycodone [From Percocet] Allergy (Intermediate, Verified 11/24/18 19:54) Hives Pt. stated " Immediatly after taking it I felt like I was coming out of my skin." ampicillin Allergy (Mild, Verified 11/24/18 19:54) hives duloxetine [From Cymbalta] Allergy (Mild, Verified 11/24/18 19:54) nausea erythromycin base [Erythromycin Base] Allergy (Mild, Verified 11/24/18 19:54) [facility] Summary - Hospital Course Hospital Course: Pt is a 53 yo pt of mine from [facility] with PMHx Crohn's dz s/p colostomy with ileostomy, bladder damaged and subsequent supraubic catheter, with chronic renal failure on IV fluids 3x/week, with chronic bladder spasms, who was admitted with abd pain. On admission her lipase was elevated so she was treated with increased fluids for possible pancreatitis. When the lipase normalized, she was still having abd pain. Pt does have hx PUD and came in on PPI and carafate but the PPI was changed to IV. She did have a positive urine culture for S. epidermis with some resistance, so was started on IV vancomycin. Her pain continued to require IV morphine; was given scheduled for several days as her pain had worsened instead of improving. I spoke with Dr. Mayberry, her urologist at , who agreed with the antibiotic tx and suggested B&O suppositories to tx the bladder spasms. The suppositories have improved her pain ; last night she took 1 norco in addition to the suppository. Pt was on telemetry and continuous pulse ox throughout her stay due to her narcotics. Last night she did have a recorded respiratory rate of 11 but her oxygen was stable all night. She was on 2L O2 per NC. - Vitals & Intake/Output Vital Signs: Vital Signs Temperature 97.5 F 12/02/18 04:00 Pulse Rate 62 12/02/18 04:00 Respiratory Rate 11 L 12/02/18 04:00 Blood Pressure 110/55 12/02/18 04:00 O2 Sat by Pulse Oximetry 94 L 12/02/18 06:40 Oxygen-Last Documented O2 Percentage 2 Liters = 28% Intake & Output: Intake & Output 11/29/18 11/30/18 12/01/18 12/02/18 11:59 11:59 11:59 11:59 Intake Total 20065 2869 1232 Output Total 1700 3170 4419 250 Balance 666 -905 -9615 400 Weight 80 kg 77 kg - Lab Result Diagrams: 12/01/18 05:33 12/01/18 05:33 Micro Results-Entire Visit: Microbiology 11/25/18 18:17 Urine Culture - Final Urine, Indwelling Catheter Staphylococcus Epidermidis - Procedures and Test Procedures and Tests throughout Hospitalization: Therapy Orders & Screens 11/24/18 22:21 Smoking Cessation Education Comment: Diagnosis: Tachycardia Smoking Status: Current every day smoker How long have you smoked: 20 yrs Have you smoked in the past 12 months: Yes Approximately how many cigarettes per day: 1/2 pack Do you dip or chew tobacco: No 11/29/18 04:26 Oxygen Nasal Cannula 2 lpm Comment: Diagnosis: PANCREATITIS, UTI, ABD PAIN 11/30/18 23:59 Respiratory Therapy Assessment DAILY Comment: Diagnosis: PANCREATITIS, UTI, ABD PAIN Discharge Exam General Appearance: no apparent distress, alert (sleeping but wakes to voice) Neurologic Exam: oriented x 3, cooperative Skin Exam: normal color, warm, dry, No rash Respiratory Exam: normal breath sounds, lungs clear Cardiovascular Exam: regular rate/rhythm, normal heart sounds, No murmur Gastrointestinal/Abdomen Exam: soft, other (ileostomy and suprapubic catheter present), No normal bowel sounds (hypoactive), No tenderness, No distention, No mass, No guarding Extremity Exam: normal inspection, No pedal edema, No swelling Final Diagnosis/Problem List - Final Discharge Diagnosis/Problem (1) UTI (urinary tract infection) Current Visit: No Status: Resolved Onset Date: ~07/17/18 Assessment & Plan: Was going to send pt home after finishing 7d vancomycin (today) - however I have concerns about her RR of 11 early this morning. Will stop the IV morphine , continue po norco and B&O DC as she would be getting at home and see how she does tonight. Would like to avoid causing severe respiratory depression. Code(s): N39.0 - URINARY TRACT INFECTION, SITE NOT SPECIFIED (2) Bladder spasms Current Visit: Yes Status: Chronic Assessment & Plan: much better on suppository (3) Abdominal pain Current Visit: No Status: Acute Onset Date: ~07/17/18 Assessment & Plan: much improved Code(s): R10.9 - UNSPECIFIED ABDOMINAL PAIN (4) Chronic kidney disease (CKD) stage G3a/A1, moderately decreased glomerular filtration rate (GFR) between 45-59 mL/min/1.73 square meter and albuminuria creatinine ratio less than 30 mg/g Current Visit: No Status: Chronic Code(s): N18.3 - CHRONIC KIDNEY DISEASE, STAGE 3 (MODERATE) (5) Peptic ulcer Current Visit: No Status: Chronic Code(s): K27.9 - PEPTIC ULC, SITE UNSP, UNSP AC OR CHR, W/O HEMOR OR PERF (6) Suprapubic catheter Current Visit: No Status: Chronic Code(s): Z93.59 - OTHER CYSTOSTOMY STATUS (7) Ileostomy in place Current Visit: No Status: Chronic Code(s): Z93.2 - ILEOSTOMY STATUS (8) Anemia Current Visit: Yes Status: Chronic Code(s): D64.9 - ANEMIA, UNSPECIFIED (9) Hypomagnesemia Current Visit: Yes Status: Chronic Code(s): E83.42 - HYPOMAGNESEMIA - Discharge Disposition: Home, Self-Care Condition: Fair Prescriptions: No Action Pregabalin [Lyrica] 100 mg PO BID Diazepam 5 mg [Valium 5 MG] 10 mg PO TID Promethazine HCl 25 mg [Phenergan 25 mg] 25 mg PO BIDPRN PRN PRN Reason: Nausea Heparin Flush 500 units/5 ml [Heparin Lock Flush 100 Units/ml 5ml Syringe ] 500 units PORT FLUSH PRN PRN disp.syrin PRN Reason: Iv Port Flush Lipase/Protease/Amylase [Concepcion Teran 24,000 Units Capsule] 6,000 udcap PO TID Tolterodine Tartrate [Tolterodine Tartrate ER] 4 mg PO DAILY Buspirone HCl 5 mg [Buspar 5 mg] 10 mg PO TID Hydrocodone Bit/Acetaminophen [[place] 10-325 Tablet] 1 each PO Q6H PRN PRN Reason: Pain Metoclopramide HCl [Reglan] 10 mg PO DAILY Ondansetron ODT 4 MG [Zofran Odt 4 mg] 4 mg PO Q6H PRN PRN PRN Reason: Nausea Furosemide 40 mg [Lasix 40 MG] 40 mg PO DAILY PRN PRN PRN Reason: fluid retention Loperamide HCl 2 mg [Imodium 2 mg] 2 mg PO TID PRN Esomeprazole Magnesium [Nexium] 40 mg PO DAILY Spironolactone 25 mg [Aldactone 25 MG] 25 mg PO DAILY Sertraline HCl [Zoloft] 100 mg PO BID Sucralfate 1 gm [Carafate 1 GM] 1 g PO AC Phenazopyridine HCl [Pyridium] 100 mg PO TID Instructions: Urinary Tract Infection, Adult (DC), Bladder Spasms (DC), Chronic Pancreatitis (DC) Follow up with: KHUSHBU REYNOSO [CONSULTING PHYSICIAN] - 1 Week JOSE ZAMORANO [Primary Care Provider] - 1 Week Forms: Discharge Instructions
[2018-12-02] MEDS: PYRIDIUM 200 MG PO SCH ×3 (08:22→22:30)
[2018-12-02 09:03] LABS: Hematocrit 34.6 % (35-47); Hemoglobin 10.9 gm/dl (12.0-16.0); Mean Cell Volume 90.1 fl (78-100); Mean Corpuscular Hgb Concent. 31.5 g/dl (32-36); Mean Platelet Volume 9.5 fl (6-9.5); Platelet Count 276 K/mm3 (150-450); Red Blood Count 3.84 M/mm3 (4.1-5.4); Red Cell Distribution Width 14.7 % (11.5-14.0); White Blood Count 5.7 K/mm3 (4.0-10.5)
[2018-12-02 09:05] LABS: Mean Corpuscular Hemoglobin 28.3 pg (26-32)
[2018-12-02] MEDS: BENADRYL 50 MG/ML IV PRN ×2 (09:19→22:30)
[2018-12-02] MEDS: VANCOCIN 500 MG VIAL*** 500 MG in Sodium Chloride 100ML MINI-BAG PLUS 100 ML IV SCH ×2 (09:20→22:31)
[2018-12-02 09:23] LABS: ANION GAP 16.9 MEQ/L (5-15); BLOOD UREA NITROGEN 10 mg/dL (7-17); CHLORIDE 103 mmol/L (98-107); Calcium 9.6 mg/dL (8.4-10.2); Carbon Dioxide 25 mmol/L (22-30); Creatinine 1 0.95 mg/dL (0.52-1.04); Glucose 119 mg/dL (74-106); Potassium 4.3 mmol/L (3.5-5.1); SODIUM 140 mmol/L (137-145)
[2018-12-02] MEDS ORDERED: Protonix 40MG Tablet PO SCH (10:00)
[2018-12-02] MEDS ORDERED: MORPHINE SULFATE 10 MG/ML IV ONE (10:39)
[2018-12-02] MEDS: Sodium Chloride 0.9% 1000 ML 1,000 ML IV SCH (12:04)
[2018-12-02] MEDS: MORPHINE SULFATE 10 MG/ML IV PRN ×2 (15:40→20:09)
[2018-12-02] MEDS: Lasix 20 MG/2 ML IV SCH (18:13)
[2018-12-03] MEDS: MORPHINE SULFATE 10 MG/ML IV PRN ×3 (00:17→10:39)
[2018-12-03] MEDS: Lasix 20 MG/2 ML IV SCH ×2 (02:10→10:15)
[2018-12-03] MEDS: Valium 5 MG PO SCH ×2 (05:36→10:40)
[2018-12-03] MEDS: [UNRECOGNIZED DRUG - OTHER] RC SCH (05:38)
[2018-12-03 06:34] LABS: ALBUMIN 4.1 g/dL (3.5-5.0); BILIRUBIN,TOTAL 0.5 mg/dL (0.2-1.3); Calcium 9.1 mg/dL (8.4-10.2); Creatinine 1 1.03 mg/dL (0.52-1.04); MAGNESIUM 1.4 mg/dL (1.6-2.3); Potassium 3.8 mmol/L (3.5-5.1); Total Protein 7.6 g/dL (6.3-8.2)
[2018-12-03] MEDS: PATIENT OWN MEDICATION PO SCH ×4 (08:20→13:25)
[2018-12-03] MEDS: Carafate 1 GM PO SCH ×2 (08:21→13:26)
--- NOTE | 2018-12-03 08:43 | PCM.DS ---
Discharge Summary Date of Admission: 11/26/18 08:47 Admitting Physician: JOSE ZAMORANO Consults: Consults on Case 11/26/18 08:47 Consult Nephrology ROUTINE Primary Care Provider: JOSE ZAMORANO Allergies Allergies oxybutynin Allergy (Severe, Verified 11/24/18 19:54) pharyngeal swelling acetaminophen [From Percocet] Allergy (Intermediate, Verified 11/24/18 19:54) Hives Pt. stated " Immediatly after taking it I felt like I was coming out of my skin." oxycodone [From Percocet] Allergy (Intermediate, Verified 11/24/18 19:54) Hives Pt. stated " Immediatly after taking it I felt like I was coming out of my skin." ampicillin Allergy (Mild, Verified 11/24/18 19:54) hives duloxetine [From Cymbalta] Allergy (Mild, Verified 11/24/18 19:54) nausea erythromycin base [Erythromycin Base] Allergy (Mild, Verified 11/24/18 19:54) [facility] Summary - Hospital Course Hospital Course: Pt is a 53 yo pt of mine from [facility] with PMHx Crohn's dz s/p colostomy with ileostomy, bladder damaged and subsequent supraubic catheter, with chronic renal failure on IV fluids 3x/week, with chronic bladder spasms, who was admitted with abd pain. On admission her lipase was elevated so she was treated with increased fluids for possible pancreatitis. When the lipase normalized, she was still having abd pain. Pt does have hx PUD and came in on PPI and carafate but the PPI was changed to IV. She did have a positive urine culture for S. epidermis with some resistance, so was started on IV vancomycin and completed 7d of that. Her pain continued to require IV morphine; was given scheduled for several days as her pain had worsened instead of improving. I spoke with Dr. Mayberry, her urologist at , who agreed with the antibiotic tx and suggested B&O suppositories to tx the bladder spasms. The suppositories initially improved her pain,but with the second dose she thinks it gave her "stomach cramps" so she refused last night's dose. Nephrology has been following her throughout her stay. Last night Dr. Altman ordered lasix IV TID and iron infusion, thank you. Respirations were decreased her first night on the B&O suppositories. Last night her vitals were stable. This morning she is feeling "fine" and would like to go home. Jama po well. Up out of bed well. On her home norco. - Vitals & Intake/Output Vital Signs: Vital Signs Temperature 97.4 F 12/03/18 04:11 Pulse Rate 73 12/03/18 04:11 Respiratory Rate 14 12/03/18 04:11 Blood Pressure 103/66 12/03/18 04:11 O2 Sat by Pulse Oximetry 91 L 12/03/18 06:44 Oxygen-Last Documented O2 Percentage 2 Liters = 28% Intake & Output: Intake & Output 11/30/18 12/01/18 12/02/18 12/03/18 11:59 11:59 11:59 11:59 Intake Total 3335 2869 1232 1243 Output Total 3800 5500 950 3500 Balance -571 -2971 953 -7422 Weight 80 kg 77 kg 76.2 kg - Lab Result Diagrams: 12/02/18 08:55 12/03/18 06:00 Lab Results-Last 24 Hrs: Lab Results-Last 24 Hours 12/02/18 12/02/18 12/03/18 Range/Units 08:55 08:55 06:00 WBC 5.7 (4.0-10.5) K/mm3 RBC 3.84 L (4.1-5.4) M/mm3 Hgb 10.9 L (12.0-16.0) gm/dl Hct 34.6 L (35-47) % MCV 90.1 (78-100) fl MCH 28.3 (26-32) pg MCHC 31.5 L (32-36) g/dl RDW 14.7 H (11.5-14.0) % Plt Count 276 (150-450) K/mm3 MPV 9.5 (6-9.5) fl Sodium 140 141 (137-145) mmol/L Potassium 4.3 3.8 (3.5-5.1) mmol/L Chloride 103 99 (98-107) mmol/L Carbon Dioxide 25 28 (22-30) mmol/L Anion Gap 16.9 H 17.0 H (5-15) MEQ/L BUN 10 12 (7-17) mg/dL Creatinine 0.95 1.03 (0.52-1.04) mg/dL Estimated GFR > 60.0 59.6 ML/MIN Glucose 119 H 86 (74-106) mg/dL Calcium 9.6 9.1 (8.4-10.2) mg/dL Magnesium 1.4 L (1.6-2.3) mg/dL Total Bilirubin 0.50 (0.2-1.3) mg/dL AST 23 (14-36) U/L ALT 23 (0-35) U/L Alkaline Phosphatase 115 (38-126) U/L Serum Total Protein 7.6 (6.3-8.2) g/dL Albumin 4.1 (3.5-5.0) g/dL Micro Results-Entire Visit: Microbiology 11/25/18 18:17 Urine Culture - Final Urine, Indwelling Catheter Staphylococcus Epidermidis - Procedures and Test Procedures and Tests throughout Hospitalization: Therapy Orders & Screens 11/24/18 22:21 Smoking Cessation Education Comment: Diagnosis: Tachycardia Smoking Status: Current every day smoker How long have you smoked: 20 yrs Have you smoked in the past 12 months: Yes Approximately how many cigarettes per day: 1/2 pack Do you dip or chew tobacco: No 11/29/18 04:26 Oxygen Nasal Cannula 2 lpm Comment: Diagnosis: PANCREATITIS, UTI, ABD PAIN 11/30/18 23:59 Respiratory Therapy Assessment DAILY Comment: Diagnosis: PANCREATITIS, UTI, ABD PAIN Discharge Exam General Appearance: no apparent distress, alert Neurologic Exam: oriented x 3, cooperative Skin Exam: normal color, warm, dry, No rash Respiratory Exam: normal breath sounds, lungs clear, No crackles/rales, No rhonchi, No wheezing Cardiovascular Exam: regular rate/rhythm, normal heart sounds, No murmur Gastrointestinal/Abdomen Exam: soft, normal bowel sounds, other (suprapubic cath & ileostomy present.), No tenderness, No distention, No mass, No guarding, No rebound Extremity Exam: pedal edema (trace bilat) Back Exam: normal inspection, No rash Final Diagnosis/Problem List - Final Discharge Diagnosis/Problem (1) UTI (urinary tract infection) Current Visit: No Status: Resolved Onset Date: ~07/17/18 Assessment & Plan: treated with 7d IV vancomycin Code(s): N39.0 - URINARY TRACT INFECTION, SITE NOT SPECIFIED (2) Bladder spasms Current Visit: Yes Status: Chronic Assessment & Plan: improved. Will NOT be sendign pt home on B&O suppositories. (3) Abdominal pain Current Visit: No Status: Resolved Onset Date: ~07/17/18 Code(s): R10.9 - UNSPECIFIED ABDOMINAL PAIN (4) Chronic kidney disease (CKD) stage G3a/A1, moderately decreased glomerular filtration rate (GFR) between 45-59 mL/min/1.73 square meter and albuminuria creatinine ratio less than 30 mg/g Current Visit: No Status: Chronic Assessment & Plan: per Dr. Orourke's group. I have a page out to Dr. Altman, if pt can have IV lasix BID and one po dose, she can discharge to home. Code(s): N18.3 - CHRONIC KIDNEY DISEASE, STAGE 3 (MODERATE) (5) Peptic ulcer Current Visit: No Status: Chronic Code(s): K27.9 - PEPTIC ULC, SITE UNSP, UNSP AC OR CHR, W/O HEMOR OR PERF (6) Suprapubic catheter Current Visit: No Status: Chronic Code(s): Z93.59 - OTHER CYSTOSTOMY STATUS (7) Ileostomy in place Current Visit: No Status: Chronic Code(s): Z93.2 - ILEOSTOMY STATUS (8) Anemia Current Visit: Yes Status: Chronic Code(s): D64.9 - ANEMIA, UNSPECIFIED (9) Hypomagnesemia Current Visit: Yes Status: Chronic Code(s): E83.42 - HYPOMAGNESEMIA (10) Anemia Current Visit: Yes Status: Acute Assessment & Plan: iron infusions this week at infusion center Code(s): D64.9 - ANEMIA, UNSPECIFIED - Discharge Disposition: Home, Self-Care Condition: Fair Prescriptions: No Action Pregabalin [Lyrica] 100 mg PO BID Diazepam 5 mg [Valium 5 MG] 10 mg PO TID Promethazine HCl 25 mg [Phenergan 25 mg] 25 mg PO BIDPRN PRN PRN Reason: Nausea Heparin Flush 500 units/5 ml [Heparin Lock Flush 100 Units/ml 5ml Syringe ] 500 units PORT FLUSH PRN PRN disp.syrin PRN Reason: Iv Port Flush Lipase/Protease/Amylase [Concepcion Teran 24,000 Units Capsule] 6,000 udcap PO TID Tolterodine Tartrate [Tolterodine Tartrate ER] 4 mg PO DAILY Buspirone HCl 5 mg [Buspar 5 mg] 10 mg PO TID Hydrocodone Bit/Acetaminophen [[place] 10-325 Tablet] 1 each PO Q6H PRN PRN Reason: Pain Metoclopramide HCl [Reglan] 10 mg PO DAILY Ondansetron ODT 4 MG [Zofran Odt 4 mg] 4 mg PO Q6H PRN PRN PRN Reason: Nausea Furosemide 40 mg [Lasix 40 MG] 40 mg PO DAILY PRN PRN PRN Reason: fluid retention Loperamide HCl 2 mg [Imodium 2 mg] 2 mg PO TID PRN Esomeprazole Magnesium [Nexium] 40 mg PO DAILY Spironolactone 25 mg [Aldactone 25 MG] 25 mg PO DAILY Sertraline HCl [Zoloft] 100 mg PO BID Sucralfate 1 gm [Carafate 1 GM] 1 g PO AC Phenazopyridine HCl [Pyridium] 100 mg PO TID Instructions: Urinary Tract Infection, Adult (DC), Bladder Spasms (DC), Chronic Pancreatitis (DC) Follow up with: KHUSHBU OROURKE [CONSULTING PHYSICIAN] - 1 Week JOSE ZAMORANO [Primary Care Provider] - 1 Week Forms: Discharge Instructions
[2018-12-03] MEDS ORDERED: Venofer 100 MG/5 ML IV SCH (10:00)
[2018-12-03] MEDS ORDERED: Venofer 100 MG/5 ML*** 200 MG in Sodium Chloride 0.9% 100 ML IVPB 100 ML IV SCH (10:00)
[2018-12-03] MEDS ORDERED: Protonix 40MG Tablet PO SCH (10:00)
[2018-12-03] MEDS: ZOLOFT 50 MG TABLET PO SCH (10:15)
[2018-12-03] MEDS: PYRIDIUM 200 MG PO SCH (10:15)
[2018-12-03] MEDS: Reglan 10 MG PO SCH (10:15)
[2018-12-03] MEDS: BUSPAR 5 MG PO SCH (10:16)
[2018-12-03] MEDS: Aldactone 25 MG PO SCH (10:17)
[2018-12-03 12:24] VITALS: BP 124/56; PULSE 94; O2SAT 97
== END 2018-12-03 13:55 | disposition home or self-care (01) | DRG 690 ==
LOC: ED 15:22 → MED SURG 18:42 → OBSVTOIN 11-26 08:47
PROVIDERS: ADMIT Family Medicine; ATTEND Family Medicine
DX: N39.0 Urinary tract infection, site not specified (principal); K86.1 Other chronic pancreatitis; R00.0 Tachycardia, unspecified; N18.3 Chronic kidney disease, stage 3 (moderate); E87.6 Hypokalemia; E83.42 Hypomagnesemia; R60.9 Edema, unspecified; D64.9 Anemia, unspecified; N32.89 Other specified disorders of bladder; R10.9 Unspecified abdominal pain; K27.9 Peptic ulcer, site unspecified, unspecified as acute or chronic, without hemorrhage or perforation; Z93.2 Ileostomy status; Z79.899 Other long term (current) drug therapy
CPT/HCPCS: 36415; 80048; 80053; 80202; 81001; 82150; 82270; 82607; 82728; 82746; 83540; 83550; 83690; 83735; 84484; 85025; 85027; 87077; 87086; 87186; 93005; 93041; 93268; 94760; 94762; 96365; 96366; 96374; 99211; 99285; G0378; J0696; J1170; J1200; J1642; J1756; J1940; J2270; J2405; J2550; J3370; J3475; J3480; P9047; A9270-GY

== ENCOUNTER 2019-01-13 18:07 | Emergency (ER) | payer MEDICARE ==
--- NOTE | 2019-01-13 18:11 | ERPHSYRPT ---
- History of Present Illness Time Seen by Provider: 01/13/19 19:11 Source: patient Exam Limitations: no limitations Physician History: 53 y/o white female with suprapubic catheter in place, presents with bladder spasm and pain. worsening for last 2 days. she states she has a uti whenever she has these sx. pt took a norco 7.5 four hours ago and it did not help. pt can take rocephin and cipro for uti Timing/Duration: day(s) (2) Severity: moderate Associated Symptoms: nausea, abdominal pain (suprapubic bladder spasms), No vomiting Allergies/Adverse Reactions: oxybutynin Allergy (Severe, Verified 11/24/18 19:54) pharyngeal swelling acetaminophen [From Percocet] Allergy (Intermediate, Verified 11/24/18 19:54) Hives Pt. stated " Immediatly after taking it I felt like I was coming out of my skin." oxycodone [From Percocet] Allergy (Intermediate, Verified 11/24/18 19:54) Hives Pt. stated " Immediatly after taking it I felt like I was coming out of my skin." ampicillin Allergy (Mild, Verified 11/24/18 19:54) hives duloxetine [From Cymbalta] Allergy (Mild, Verified 11/24/18 19:54) nausea erythromycin base [Erythromycin Base] Allergy (Mild, Verified 11/24/18 19:54) Hives Home Medications: Diazepam 5 mg [Valium 5 MG] 10 mg PO TID 12/24/16 [History] Pregabalin [Lyrica] 100 mg PO BID 12/24/16 [History] Promethazine HCl 25 mg [Phenergan 25 mg] 25 mg PO BIDPRN PRN 01/07/17 [ History] Lipase/Protease/Amylase [Concepcion Dr 24,000 Units Capsule] 6,000 udcap PO TID 08/22 [History] Tolterodine Tartrate [Tolterodine Tartrate ER] 4 mg PO DAILY 01/07/18 [History] Buspirone HCl 5 mg [Buspar 5 mg] 10 mg PO TID 01/09/18 [History] Hydrocodone Bit/Acetaminophen [[place] 10-325 Tablet] 1 each PO Q6H PRN 02/03/18 [ History] Metoclopramide HCl [Reglan] 10 mg PO DAILY 03/05/18 [History] Furosemide 40 mg [Lasix 40 MG] 40 mg PO DAILY PRN PRN 04/06/18 [History] Ondansetron ODT 4 MG [Zofran Odt 4 mg] 4 mg PO Q6H PRN PRN 04/06/18 [ History] Loperamide HCl 2 mg [Imodium 2 mg] 2 mg PO TID PRN 08/05/18 [History] Esomeprazole Magnesium [Nexium] 40 mg PO DAILY 09/07/18 [History] Spironolactone 25 mg [Aldactone 25 MG] 25 mg PO DAILY 09/23/18 [History] Sertraline HCl [Zoloft] 100 mg PO BID 11/06/18 [History] Phenazopyridine HCl [Pyridium] 100 mg PO TID 11/24/18 [History] Sucralfate 1 gm [Carafate 1 GM] 1 g PO AC 11/24/18 [History] Brexpiprazole [Rexulti] 2 mg PO HS 12/11/18 [History] Solifenacin Succinate [Vesicare] 10 mg PO DAILY 01/05/19 [History] Hx Tetanus, Diphtheria Vaccination/Date Given: Yes Hx Influenza Vaccination/Date Given: Yes Hx Pneumococcal Vaccination/Date Given: Yes - Review of Systems Constitutional: No Symptoms Eyes: No Symptoms Ears, Nose, & Throat: No Symptoms Respiratory: No Symptoms Cardiac: No Symptoms Abdominal/Gastrointestinal: Abdominal Pain (suprapubic bladder spasms), Nausea Genitourinary Symptoms: Other (bladder spasms and pain) Musculoskeletal: No Symptoms Skin: No Symptoms Neurological: No Symptoms Psychological: No Symptoms Endocrine: No Symptoms Hematologic/Lymphatic: No Symptoms Immunological/Allergic: No Symptoms All Other Systems: Reviewed and Negative - Past Medical History Pertinent Past Medical History: Yes Neurological History: Peripheral Neuropathy ENT History: No Pertinent History Cardiac History: No Pertinent History Respiratory History: No Pertinent History Endocrine Medical History: Adrenal Insufficiency, Other Musculoskeletal History: Osteoarthritis GI Medical History: Crohns Disease, Pancreatitis, Other History: Renal Disease, Other Psycho-Social History: Anxiety, Depression Female Reproductive Disorders: Other Other Medical History: Pt had surgery for ahdesions in the gut and had complications. She has a colostomy and superpubic cather. kidney insufficency, pancreatitis. Pt gets infusions with potassium and magnesium - Past Surgical History Past Surgical History: Yes (ileostomy, suprapubic catheter) Neuro Surgical History: No Pertinent History Cardiac: No Pertinent History Respiratory: No Pertinent History Gastrointestinal: Bowel Surgery, Cholecystectomy Genitourinary: Other Musculoskeletal: No Pertinent History Female Surgical History: Hysterectomy Other Surgical History: has 120 cm of small bowel,illiostomy, urostomy following compications after surgery to remove adhesions - Social History Smoking Status: Former smoker How long have you smoked: 20 yrs Exposure to second hand smoke: No Drug Use: none Patient Lives Alone: No - Nursing Vital Signs Nursing Vital Signs: Initial Vital Signs Temperature 98.3 F 01/13/19 18:44 Pulse Rate 90 01/13/19 18:44 Respiratory Rate 16 01/13/19 18:44 Blood Pressure 132/88 01/13/19 18:44 O2 Sat by Pulse Oximetry 95 01/13/19 18:44 Pain Scale Pain Intensity 10 - Physical Exam General Appearance: mild distress, alert, anxiety Eye Exam: PERRL/EOMI, eyes nml inspection Ears, Nose, Throat Exam: normal ENT inspection, moist mucous membranes Neck Exam: normal inspection, non-tender, supple, full range of motion Respiratory Exam: normal breath sounds, lungs clear, airway intact, No chest tenderness, No respiratory distress Gastrointestinal/Abdomen Exam: soft, tenderness (mild over suprapubic area. ), No guarding, No rebound Pelvic Exam: not done Rectal Exam: not done Back Exam: normal inspection, normal range of motion, No CVA tenderness, No vertebral tenderness Extremity Exam: normal inspection, normal range of motion, pelvis stable Neurologic Exam: alert, oriented x 3, cooperative, supervisor cooler service II-XII nml as tested Skin Exam: normal color, warm, dry Lymphatic Exam: No adenopathy SpO2 Interpretation: normal O2 Delivery: Room Air Ordered Tests: Active Orders 24 hr Category Date Time Status CULTURE,URINE Stat Lab 01/13/19 19:45 Received UA W/RFX UR CULTURE Stat Lab 01/13/19 19:45 Completed Medication Summary Generic Name Dose Route Start Last Admin Trade Name Freq PRN Reason Stop Dose Admin Ceftriaxone Sodium/Dextrose 1 g in 50 mls @ 100 mls/hr 01/13/19 19:58 Rocephin 1 Gm-D5w 50 Ml Bag IV 01/13/19 20:27 STAT STA Discontinued Medications Generic Name Dose Route Start Last Admin Trade Name Kristy PRN Reason Stop Dose Admin Hydromorphone HCl 1 mg 01/13/19 19:58 Hydromorphone 1 Mg/Ml Ampule IV 01/13/19 19:59 STAT ONE Ondansetron HCl 4 mg 01/13/19 19:58 Zofran Odt 4 Mg PO 01/13/19 19:59 STAT ONE Lab/Rad Data: Laboratory Results 01/13/19 Range/Units 19:45 Urine Color CARMEN (YELLOW) Urine Appearance SLIGHTLY CLOUDY (CLEAR) Urine pH 6.0 (5-6) Ur Specific [place] 1.008 (1.005-1.025) Urine Protein 100 (Negative) Urine Ketones NEGATIVE (NEGATIVE) Urine Blood MODERATE (0-5) Gregg/ul Urine Nitrite POSITIVE (NEGATIVE) Urine Bilirubin NEGATIVE (NEGATIVE) Urine Urobilinogen 4 (0-1) mg/dL Ur Leukocyte Esterase SMALL (NEGATIVE) Urine WBC (Auto) 51-100 (0-5) /HPF Urine RBC (Auto) 3-5 (0-2) /HPF U Epithel Cells (Auto) NONE (FEW) /HPF Urine Bacteria (Auto) FEW (NEGATIVE) /HPF Urine Mucus (Auto) SLIGHT (NEGATIVE) /HPF Urine Culture Reflexed YES (NO) Urine Glucose NEGATIVE (NEGATIVE) mg/dL - Departure Departure Disposition: Home Clinical Impression: UTI (urinary tract infection) Condition: Stable Critical Care Time: No Referrals: JOSE ZAMORANO [Primary Care Provider] - Additional Instructions: drink plenty of fluids. follow up with primary doctor for further management. Prescriptions: Ciprofloxacin [Cipro 500 MG] 500 mg PO BID #14 tablet
[2019-01-13 19:47] VITALS: BP 118/85
[2019-01-13 19:52] LABS: Appearance SLIGHTLY CLOUDY (CLEAR); Bacteria FEW /HPF (NEGATIVE); Bilirubin NEGATIVE (NEGATIVE); Blood MODERATE Ery/ul (0-5); Glucose NEGATIVE (NEGATIVE); Ketones NEGATIVE (NEGATIVE); Leukocyte Esterase SMALL (NEGATIVE); Mucus SLIGHT /HPF (NEGATIVE); Nitrite POSITIVE (NEGATIVE); Protein,Urine Dip 100 (Negative); Specific Gravity 1.008 (1.005-1.025); Urobilinogen 4 mg/dL (0-1); WBC 51-100 /HPF (0-5)
[2019-01-13] MEDS ORDERED: ZOFRAN ODT 4 MG PO ONE (19:58)
[2019-01-13] MEDS ORDERED: Hydromorphone 1 mg/ml Ampule IV ONE (19:58)
[2019-01-13] MEDS ORDERED: ROCEPHIN 1 Gm-D5w 50 ml Bag** 1 G/50 ML IVPB IV STA (19:58)
[2019-01-13] MEDS ORDERED: ZOFRAN ODT 4 MG ONE (20:04)
[2019-01-13] MEDS ORDERED: Hydromorphone 1 mg/ml Ampule ONE (20:04)
[2019-01-13] MEDS ORDERED: ROCEPHIN 1 Gm-D5w 50 ml Bag** 1 G/50 ML IVPB IV ONE (20:05)
[2019-01-13 21:20] VITALS: PULSE 80; O2SAT 100
== END 2019-01-13 21:20 | disposition home or self-care (01) ==
LOC: ED 18:07
DX: N39.0 Urinary tract infection, site not specified (principal); N32.89 Other specified disorders of bladder; R11.0 Nausea; Z79.899 Other long term (current) drug therapy
CPT/HCPCS: 81001; 87077; 87086; 87186; 96374; 99284; J0696; J1170; J1642; Q0162

== ENCOUNTER 2019-02-26 09:44 | Inpatient (IN) | payer MEDICARE ==
[2019-02-26] MEDS ORDERED: Phenergan 25 MG INJ IV PRN (12:37)
[2019-02-26] MEDS ORDERED: DILAUDID 2 MG INJECTION IV PRN (12:41)
[2019-02-26] MEDS ORDERED: OXYCODONE-ACETAMINOPHEN 10-325 PO PRN (12:42)
[2019-02-26] MEDS: Levofloxacin 500MG/100ML D5W 500 MG/100 ML BAG IV SCH (13:12)
[2019-02-26] MEDS ORDERED: Sodium Chloride 0.9% 10 ML FLUSH Syringe IV PRN (13:15)
[2019-02-26] MEDS: MORPHINE SULFATE 4 MG INJ IV PRN ×2 (15:44→20:07)
--- NOTE | 2019-02-26 15:56 | PCM.HP ---
History of Present Illness - Chief Complaint Chief Complaint: UTI, Vomiting, Fever, Chronic Renal Insufficiency History of Present Illness: Late entry for 02/26/19, 919. Pt seen and examined by me in Infusion this morning. is a 53 year old female pt of mine from [facility] with hx Crohn's dz s/p colon resection with resultant short bowel syndrome and urinary bladder damage with indwelling suprapubic catheter and ileostomy, chronic renal disease, and chronic pancreatitis who was directly admitted today for UTI. She has IV fluids infused and labs drawn 2-3x/wk under the direction of Dr. Orourke, nephrology. Today she was not feeling well so infusion called me to see her. She has been having increased pelvic pain since Friday - she had her suprapubic catheter changed and it got stuck. Since then she has had bladder spasms. She has had temps to 101. UA with elevated WBC. - Review of Systems Constitutional: Fever Abdominal/Gastrointestinal: Abdominal Pain, Vomiting All Other Systems: Reviewed and Negative Medications & Allergies Home Medications: Home Medication List Diazepam 5 mg [Valium 5 MG] 10 mg PO TID 12/24/16 [History Confirmed 02/26] Pregabalin [Lyrica] 100 mg PO BID 12/24/16 [History Confirmed 02/26/19] Promethazine HCl 25 mg [Phenergan 25 mg] 25 mg PO BIDPRN PRN 01/07/17 [ History Confirmed 02/26/19] Heparin Flush 500 units/5 ml [Heparin Lock Flush 100 Units/ml 5ml Syringe] 500 units PORT FLUSH PRN PRN disp.syrin 08/10/17 [Rx Confirmed 02/26/19] Lipase/Protease/Amylase [Concepcion Teran 24,000 Units Capsule] 6,000 udcap PO TID 08/22 [History Confirmed 02/26/19] Buspirone HCl 5 mg [Buspar 5 mg] 15 mg PO TID 01/09/18 [History Confirmed 02/26/19] Metoclopramide HCl [Reglan] 10 mg PO DAILY 03/05/18 [History Confirmed 02/26/19] Furosemide 40 mg [Lasix 40 MG] 40 mg PO DAILY PRN PRN 04/06/18 [History Confirmed 02/26/19] Ondansetron ODT 4 MG [Zofran Odt 4 mg] 4 mg PO Q6H PRN PRN 04/06/18 [ History Confirmed 02/26/19] Loperamide HCl 2 mg [Imodium 2 mg] 2 mg PO TID PRN 08/05/18 [History Confirmed 02/26/19] Esomeprazole Magnesium [Nexium] 40 mg PO DAILY 09/07/18 [History Confirmed 02/26] Spironolactone 25 mg [Aldactone 25 MG] 25 mg PO DAILY PRN PRN 09/23/18 [ History Confirmed 02/26/19] Sertraline HCl [Zoloft] 100 mg PO BID 11/06/18 [History Confirmed 02/26/19] Sucralfate 1 gm [Carafate 1 GM] 1 g PO AC 11/24/18 [History Confirmed ] Brexpiprazole [Rexulti] 2 mg PO HS 12/11/18 [History Confirmed 02/26/19] Solifenacin Succinate [Vesicare] 10 mg PO DAILY 01/05/19 [History Confirmed ] Hydrocodone/Acetaminophen [Hydrocodone-Acetamin 7.5-325] 1 tab PO QID PRN PRN [History Confirmed 02/26/19] Mirabegron [Myrbetriq] 50 mg PO DAILY 02/26/19 [History Confirmed 02/26/19] Allergies/Adverse Reactions: Allergies Allergy/AdvReac Type Severity Reaction Status Date / Time oxybutynin Allergy Severe Verified 02/02/19 07:23 acetaminophen [From Percocet] Allergy Intermediate Hives Verified 02/02/19 07:23 oxycodone [From Percocet] Allergy Intermediate Hives Verified 02/02/19 07:23 ampicillin Allergy Mild Verified 02/02/19 07:23 duloxetine [From Cymbalta] Allergy Mild Verified 02/02/19 07:23 erythromycin base Allergy Mild Verified 02/02/19 07:23 [Erythromycin Base] duloxetine HCl Allergy Unknown Tightness Unverified 01/14/13 10:00 [From Cymbalta] in Chest latex Allergy Unknown Rash Unverified 01/14/13 10:00 levofloxacin [From Levaquin] Allergy Unknown Shortness Unverified 01/14/13 10:00 of Breath pregabalin [From Lyrica] Allergy Unknown Shortness Unverified 01/14/13 10:00 of Breath - Past Medical History Past Medical History: Yes Neurological History: Peripheral Neuropathy ENT History: No Pertinent History Cardiac History: No Pertinent History Respiratory History: No Pertinent History Endocrine Medical History: Adrenal Insufficiency, Other Musculoskelatal History: Osteoarthritis GI Medical History: Crohns Disease, Pancreatitis, Other History: Renal Disease, Other Pyscho-Social History: Anxiety, Depression Reproductive Disorders: Other Comment: Pt had surgery for ahdesions in the gut and had complications. She has a colostomy and superpubic cather. kidney insufficency, pancreatitis. Pt gets infusions with potassium and magnesium - Female History Are you now?: No - Past Surgical History Past Surgical History: Yes (ileostomy, suprapubic catheter) Neuro Surgical History: No Pertinent History Cardiac History: No Pertinent History Respiratory Surgery: No Pertinent History GI Surgical History: Bowel Surgery, Cholecystectomy Genitourinary Surgical Hx: Other Musculskeletal Surgical Hx: No Pertinent History Female Surgical History: Hysterectomy Other Surgical History: has 120 cm of small bowel,illiostomy, urostomy following compications after surgery to remove adhesions - Social History Smoking Status: Current every day smoker How long have you smoked: "20 years" Exposure to second hand smoke: Yes Alcohol: None Drug Use: none - Physical Exam Vital Signs: Vital Signs - 24 hr Temp Pulse Resp BP Pulse Ox 02/26/19 14:20 97 02/26/19 13:14 98.3 F 70 16 107/67 95 General Appearance: moderate distress (lying on her side, eyes closed), alert Neurologic Exam: oriented x 3, cooperative Eye Exam: eyes nml inspection Ears, Nose, Throat Exam: moist mucous membranes Respiratory Exam: normal breath sounds, lungs clear, No crackles/rales, No rhonchi, No wheezing Cardiovascular Exam: regular rate/rhythm, normal heart sounds, No murmur Gastrointestinal/Abdomen Exam: soft, normal bowel sounds, tenderness (suprapubic ), guarding, No distention, No rebound Extremity Exam: normal inspection, No pedal edema, No swelling Skin Exam: normal color, warm, dry, No rash Assessment/Plan (1) UTI (urinary tract infection) Current Visit: No Status: Acute Qualifiers: Urinary tract infection type: acute cystitis Hematuria presence: without hematuria Qualified Code(s): N30.00 - Acute cystitis without hematuria Assessment & Plan: ucx pending. She is on IV levaquin. IV pain meds. Code(s): N39.0 - URINARY TRACT INFECTION, SITE NOT SPECIFIED (2) Bladder spasms Current Visit: No Status: Acute (3) Chronic kidney disease (CKD) stage G3a/A1, moderately decreased glomerular filtration rate (GFR) between 45-59 mL/min/1.73 square meter and albuminuria creatinine ratio less than 30 mg/g Current Visit: No Status: Chronic Assessment & Plan: I have consulted nephrology for fluid management. Code(s): N18.3 - CHRONIC KIDNEY DISEASE, STAGE 3 (MODERATE) (4) Ileostomy in place Current Visit: No Status: Chronic Assessment & Plan: regular diet; tends to have too much ostomy output with liquid diet. Code(s): Z93.2 - ILEOSTOMY STATUS (5) Suprapubic catheter Current Visit: No Status: Chronic Code(s): Z93.59 - OTHER CYSTOSTOMY STATUS VTE Quality Measures - VTE Quality Measures VTE Mechanical Contraindication: Medical Contraindication
[2019-02-26] MEDS ORDERED: Lasix 40 MG PO PRN (16:57)
[2019-02-26] MEDS ORDERED: Aldactone 25 MG PO PRN (16:57)
[2019-02-26] MEDS ORDERED: IMODIUM 2 MG PO PRN (17:00)
[2019-02-26] MEDS ORDERED: MEDICATION INTERVENTION PO SCH (17:30)
[2019-02-26] MEDS: PANCRELIPASE DR 5,000 UNIT CAP PO SCH (17:33)
[2019-02-26] MEDS: Carafate 1 GM PO SCH (17:34)
[2019-02-26] MEDS: Valium 5 MG PO SCH (17:34)
[2019-02-26] MEDS: Sodium Chloride 0.9% 1000 ML 1,000 ML IV SCH (18:10)
[2019-02-26] MEDS: BUSPAR 5 MG PO SCH (21:01)
[2019-02-26] MEDS: LYRICA 100MG PO SCH (21:01)
[2019-02-26] MEDS: ZOLOFT 50 MG TABLET PO SCH (21:01)
[2019-02-26] MEDS ORDERED: BREXPIPRAZOLE 2 MG PO SCH (22:00)
[2019-02-26] MEDS ORDERED: NON-FORMULARY ITEM (Sertraline Hcl [Zoloft] 100 MG) PO SCH (22:00)
[2019-02-26] MEDS ORDERED: [UNRECOGNIZED DRUG - OTHER] PO SCH (22:00)
[2019-02-26] MEDS ORDERED: AMYLASE PO SCH (22:00)
[2019-02-26] MEDS ORDERED: PROTEASE PO SCH (22:00)
[2019-02-26] MEDS ORDERED: LIPASE PO SCH (22:00)
[2019-02-27] MEDS: MORPHINE SULFATE 4 MG INJ IV PRN ×6 (00:27→21:14)
[2019-02-27] MEDS: NORCO 7.5/325 MG TAB PO PRN ×2 (03:39→11:09)
[2019-02-27] MEDS: Valium 5 MG PO SCH ×3 (04:37→18:14)
[2019-02-27] MEDS: Reglan 10 MG PO SCH (06:23)
[2019-02-27] MEDS ORDERED: Reglan 10 MG ONE (06:23)
[2019-02-27 06:33] LABS: BASOPHIL % 0.6 % (0.0-0.4); Basophil (Absolute #) 0.03 (0-0.4); Eosinophil % 5.2 % (0.00-5.0); Eosinophil (Absolute #) 0.25 (0-0.5); Granulocyte Absolute (ANC) 2.01 (1.4-6.9); Granulocytes % 42.1 % (36.0-66.0); Hematocrit 34.9 % (35-47); Lymphocyte (Absolute #) 2.17 (1.0-4.6); Lymphocytes % 45.4 % (24.0-44.0); Mean Cell Volume 96.4 fl (78-100); Mean Corpuscular Hgb Concent. 31.5 g/dl (32-36); Mean Platelet Volume 9.6 fl (6-9.5); Monocyte (Absolute #) 0.32 (0.0-1.3); Monocytes % 6.7 % (0.0-12.0); Platelet Count 245 K/mm3 (150-450); Red Blood Count 3.62 M/mm3 (4.1-5.4); Red Cell Distribution Width 16.9 % (11.5-14.0); White Blood Count 4.8 K/mm3 (4.0-10.5)
[2019-02-27 06:40] LABS: Mean Corpuscular Hemoglobin 30.3 pg (26-32)
[2019-02-27 06:58] LABS: ALBUMIN 3.6 g/dL (3.5-5.0); ALKALINE PHOSPHATASE 115 U/L (38-126); BLOOD UREA NITROGEN 13 mg/dL (7-17); CHLORIDE 104 mmol/L (98-107); Calcium 8.4 mg/dL (8.4-10.2); Carbon Dioxide 25 mmol/L (22-30); Creatinine 1 0.92 mg/dL (0.52-1.04); Glucose 100 mg/dL (74-106); Potassium 4.2 mmol/L (3.5-5.1); SGOT/AST 31 U/L (14-36); SGPT/ALT 49 U/L (0-35); SODIUM 136 mmol/L (137-145); Total Protein 6.5 g/dL (6.3-8.2)
[2019-02-27] MEDS: Carafate 1 GM PO SCH ×3 (07:57→16:41)
[2019-02-27] MEDS: PANCRELIPASE DR 5,000 UNIT CAP PO SCH ×3 (07:57→22:06)
[2019-02-27] MEDS: Levofloxacin 500MG/100ML D5W 500 MG/100 ML BAG IV SCH (08:57)
[2019-02-27] MEDS: ZOLOFT 50 MG TABLET PO SCH (08:58)
[2019-02-27] MEDS: BUSPAR 5 MG PO SCH ×3 (08:58→21:12)
[2019-02-27] MEDS: LYRICA 100MG PO SCH ×2 (08:58→21:11)
[2019-02-27] MEDS: Protonix 40MG Tablet PO SCH (08:59)
[2019-02-27] MEDS: PATIENT OWN MEDICATION PO SCH ×3 (09:49→21:13)
[2019-02-27] MEDS ORDERED: NON-FORMULARY ITEM (Solifenacin Succinate [Vesicare] 10 MG) PO SCH (10:00)
[2019-02-27] MEDS ORDERED: NON-FORMULARY ITEM (Esomeprazole Magnesium [Nexium] 40 MG) PO SCH (10:00)
[2019-02-27] MEDS: PYRIDIUM 200 MG PO PRN (11:09)
--- NOTE | 2019-02-27 11:33 | PCM.NOTE ---
Date and Time: 02/27/19 1131 Subjective Assessment: Patient is still complaining of some lower abdominal pain, more like a cramping. Patient is able to eat regular diet. Patient denies any fever, chills, nausea or vomiting. Patient states that colostomy bag is working, but she does not want to get constipated so that she is trying to drink more fluid. - Review of Systems Constitutional: No Fever, No Chills Eyes: No Symptoms Ears, Nose, & Throat: No Symptoms Respiratory: No Cough, No Short Of Breath Cardiac: No Chest Pain, No Edema, No Syncope Abdominal/Gastrointestinal: No Abdominal Pain, No Nausea, No Vomiting, No Diarrhea Genitourinary Symptoms: No Dysuria Musculoskeletal: No Back Pain, No Neck Pain Skin: No Rash Neurological: No Dizziness, No Focal Weakness, No Sensory Changes Psychological: No Symptoms Endocrine: No Symptoms Hematologic/Lymphatic: No Symptoms Immunological/Allergic: No Symptoms Objective Exam General Appearance: no apparent distress, alert Neurologic Exam: alert, oriented x 3, cooperative, normal mood/affect, nml cerebellar function, sensation nml, No motor deficits Skin Exam: normal color, warm, dry Eye Exam: PERRL, EOMI, eyes nml inspection Ears, Nose, Throat Exam: normal ENT inspection, pharynx normal, moist mucous membranes Neck Exam: normal inspection, non-tender, supple, full range of motion Respiratory Exam: normal breath sounds, lungs clear, No respiratory distress Cardiovascular Exam: regular rate/rhythm, normal heart sounds Gastrointestinal/Abdomen Exam: soft, No tenderness, No mass Extremity Exam: normal inspection, normal range of motion Back Exam: normal inspection, normal range of motion, No CVA tenderness, No vertebral tenderness Pelvic Exam: deferred Rectal Exam: deferred OBJECTIVE DATA Vital Signs: Vital Signs - 24 hr Temp Pulse Resp BP Pulse Ox 02/27/19 07:20 98.1 F 66 18 118/61 99 02/27/19 04:00 97.9 F 58 L 18 102/50 97 02/27/19 00:00 98.4 F 65 16 101/59 95 02/26/19 20:00 97.7 F 76 19 103/60 97 02/26/19 16:00 97.6 F 70 18 114/65 96 02/26/19 14:20 97 02/26/19 13:14 98.3 F 70 16 107/67 95 Pain Assessment - Last Documented Pain Intensity 10 Pain Scale Used 0-10 Pain Scale Intake and Output: Intake & Output 02/24/19 02/25/19 02/26/19 02/27/19 11:59 11:59 11:59 11:59 Intake Total 2160 Output Total 1925 Balance 235 Weight 69.5 kg Lab Results: Lab Results-Last 24 Hours 02/27/19 02/27/19 Range/Units 06:25 06:25 WBC 4.8 (4.0-10.5) K/mm3 RBC 3.62 L (4.1-5.4) M/mm3 Hgb 11.0 L (12.0-16.0) gm/dl Hct 34.9 L (35-47) % MCV 96.4 (78-100) fl MCH 30.3 (26-32) pg MCHC 31.5 L (32-36) g/dl RDW 16.9 H (11.5-14.0) % Plt Count 245 (150-450) K/mm3 MPV 9.6 H (6-9.5) fl Gran % 42.1 (36.0-66.0) % Eos # (Auto) 0.25 (0-0.5) Absolute Lymphs (auto) 2.17 (1.0-4.6) Absolute Monos (auto) 0.32 (0.0-1.3) Lymphocytes % 45.4 H (24.0-44.0) % Monocytes % 6.7 (0.0-12.0) % Eosinophils % 5.2 H (0.00-5.0) % Basophils % 0.6 (0.0-0.4) % Absolute Granulocytes 2.01 (1.4-6.9) Basophils # 0.03 (0-0.4) Sodium 136 L (137-145) mmol/L Potassium 4.2 (3.5-5.1) mmol/L Chloride 104 (98-107) mmol/L Carbon Dioxide 25 (22-30) mmol/L Anion Gap 10.0 (5-15) MEQ/L BUN 13 (7-17) mg/dL Creatinine 0.92 (0.52-1.04) mg/dL Estimated GFR > 60.0 ML/MIN Glucose 100 (74-106) mg/dL Calcium 8.4 (8.4-10.2) mg/dL Total Bilirubin 0.30 (0.2-1.3) mg/dL AST 31 (14-36) U/L ALT 49 H (0-35) U/L Alkaline Phosphatase 115 (38-126) U/L Serum Total Protein 6.5 (6.3-8.2) g/dL Albumin 3.6 (3.5-5.0) g/dL Multi-Disciplinary Progress Notes: Multi-Disciplinary Progress Notes 02/26/19 13:39 Case Management Note by Miguelina Pena SPOKE WITH PT REGARDING NEEDS AT DISCHARGE. PT IS SELF CARE AND DENIES ANY NEEDS FOR ASSISTANCE AT THIS TIME, WILL FOLLOW. Initialized on 02/26/19 13:39 - END OF NOTE Assessment/Plan (1) Abdominal pain Current Visit: Yes Status: Resolved Onset Date: ~07/17/18 Qualifiers: Abdominal location: generalized Qualified Code(s): R10.84 - Generalized abdominal pain Assessment & Plan: Last Vital Signs Temp 98.1 F 02/27/19 07:20 Pulse 66 02/27/19 07:20 Resp 18 02/27/19 07:20 BP 118/61 02/27/19 07:20 Pulse Ox 99 02/27/19 07:20 Allergies oxybutynin Allergy (Severe, Verified 02/02/19 07:23) pharyngeal swelling oxycodone [From Percocet] Allergy (Intermediate, Verified 02/02/19 07:23) Hives Pt. stated " Immediatly after taking it I felt like I was coming out of my skin." ampicillin Allergy (Mild, Verified 02/02/19 07:23) hives erythromycin base [Erythromycin Base] Allergy (Mild, Verified 02/02/19 07:23) Hives duloxetine HCl [From Cymbalta] Allergy (Unknown, Verified 02/27/19 09:16) Tightness of Throat Active Medications Hydrocodone Bitart/Acetaminophen ([place] 7.5/325 Mg Tab) 1 tab PO QID PRN PRN PRN Reason: PAIN Stop: 03/03/19 16:56 Last Admin: 02/27/19 11:09 Dose: 1 tab Lipase/Protease/Amylase (Pancrelipase Dr 5,000 Unit Cap) 1 cap PO TIDWM YURI Stop: 03/28/19 17:29 Last Admin: 02/27/19 11:28 Dose: Not Given Buspirone HCl (Buspar 5 Mg) 15 mg PO TID YURI Stop: 03/28/19 21:59 Last Admin: 02/27/19 08:58 Dose: 15 mg Diazepam (Valium 5 Mg) 10 mg PO 0500,1100,1800 YURI Stop: 03/28/19 17:59 Last Admin: 02/27/19 11:09 Dose: 10 mg Furosemide (Lasix 40 Mg) 40 mg PO DAILY PRN PRN PRN Reason: fluid retention Stop: 03/28/19 16:56 Heparin Sodium (Beef Lung) (Heparin Lock Flush 100 Units/Ml 5ml Syringe) 0 units IV UD PRN Stop: 03/28/19 13:14 Levofloxacin/Dextrose (Levofloxacin 500mg/100ml D5w) 500 mg in 100 mls @ 100 mls/hr IV Q24H10 [facility] Stop: 03/28/19 12:44 Last Admin: 02/27/19 08:57 Dose: 100 mls/hr Sodium Chloride (Sodium Chloride 0.9% 1000 Ml) 1,000 mls @ 50 mls/hr IV .Q20H YURI Stop: 03/28/19 17:59 Last Admin: 02/26/19 18:10 Dose: 50 mls/hr Loperamide HCl (Imodium 2 Mg) 2 mg PO TID PRN PRN Stop: 03/28/19 16:59 Metoclopramide HCl (Reglan 10 Mg) 10 mg PO DAILY [facility] Stop: 03/29/19 09:59 Last Admin: 02/27/19 06:23 Dose: 10 mg Morphine Sulfate (Morphine Sulfate 4 Mg Inj) 4 mg IV Q4H PRN PRN PRN Reason: PAIN Stop: 03/03/19 15:22 Last Admin: 02/27/19 08:52 Dose: 4 mg Pantoprazole Sodium (Protonix 40mg Tablet) 40 mg PO DAILY [facility] Stop: 03/29/19 09:59 Last Admin: 02/27/19 08:59 Dose: 40 mg Rexulti 2mg Tablet 1 each PO HS [facility] Stop: 03/29/19 21:59 Myrbetriq 50mg (Tablet) 1 each PO DAILY [facility] Stop: 03/29/19 09:59 Last Admin: 02/27/19 09:49 Dose: 1 each Solifenacin 10mg (Tablet) 1 each PO DAILY [facility] Stop: 03/29/19 09:59 Last Admin: 02/27/19 09:49 Dose: 1 each Phenazopyridine HCl (Pyridium 200 Mg) 200 mg PO BID PRN PRN PRN Reason: abd discomfort, UTI symptoms Stop: 03/29/19 10:56 Last Admin: 02/27/19 11:09 Dose: 200 mg Pregabalin (Lyrica 100mg) 100 mg PO BID Y[facility] Stop: 03/28/19 21:59 Last Admin: 02/27/19 08:58 Dose: 100 mg Promethazine HCl (Phenergan 25 Mg Inj) 12.5 mg IV Q6H PRN PRN Stop: 03/28/19 12:36 Sodium Chloride (Sodium Chloride 0.9% 10 Ml Flush Syringe) 10 ml IV PRN PRN Stop: 03/28/19 13:14 Spironolactone (Aldactone 25 Mg) 25 mg PO DAILY PRN PRN PRN Reason: water retention Stop: 03/28/19 16:56 Sucralfate (Carafate 1 Gm) 1 g PO AC [facility] Stop: 03/28/19 17:29 Last Admin: 02/27/19 11:27 Dose: 1 g Intake & Output 02/26/19 02/27/19 11:59 11:59 Intake Total 2160 Output Total 1925 Balance 235 Weight 69.5 kg Lab Tests 02/27/19 02/27/19 06:25 06:25 WBC 4.8 RBC 3.62 L Hgb 11.0 L Hct 34.9 L MCV 96.4 MCH 30.3 MCHC 31.5 L RDW 16.9 H Plt Count 245 MPV 9.6 H Gran % 42.1 Eos # (Auto) 0.25 Absolute Lymphs (auto) 2.17 Absolute Monos (auto) 0.32 Lymphocytes % 45.4 H Monocytes % 6.7 Eosinophils % 5.2 H Basophils % 0.6 Absolute Granulocytes 2.01 Basophils # 0.03 Sodium 136 L Potassium 4.2 Chloride 104 Carbon Dioxide 25 Anion Gap 10.0 BUN 13 Creatinine 0.92 Estimated GFR > 60.0 Glucose 100 Calcium 8.4 Total Bilirubin 0.30 AST 31 ALT 49 H Alkaline Phosphatase 115 Serum Total Protein 6.5 Albumin 3.6 Code(s): R10.9 - UNSPECIFIED ABDOMINAL PAIN (2) Chronic kidney disease (CKD) stage G3a/A1, moderately decreased glomerular filtration rate (GFR) between 45-59 mL/min/1.73 square meter and albuminuria creatinine ratio less than 30 mg/g Current Visit: Yes Status: Chronic Code(s): N18.3 - CHRONIC KIDNEY DISEASE, STAGE 3 (MODERATE) (3) Crohns disease Current Visit: Yes Status: Chronic Qualifiers: Gastrointestinal tract location: unspecified location Digestive disease complication type: other complication Qualified Code(s): K50.918 - Crohn's disease, unspecified, with other complication Code(s): K50.90 - CROHN'S DISEASE, UNSPECIFIED, WITHOUT COMPLICATIONS (4) Ileostomy care Current Visit: Yes Status: Chronic Code(s): Z43.2 - ENCOUNTER FOR ATTENTION TO ILEOSTOMY (5) Short bowel syndrome Current Visit: Yes Status: Chronic Code(s): K91.2 - POSTSURGICAL MALABSORPTION, NOT ELSEWHERE CLASSIFIED
[2019-02-27] MEDS: Sodium Chloride 0.9% 1000 ML 1,000 ML IV SCH ×2 (13:20→14:50)
[2019-02-27 15:31] LABS: AMYLASE 116 U/L (30-110); LIPASE 483 U/L (23-300)
[2019-02-27] MEDS: Phenergan 25 MG INJ IV PRN (19:41)
[2019-02-28] MEDS: MORPHINE SULFATE 4 MG INJ IV PRN ×6 (02:56→21:24)
[2019-02-28] MEDS: Valium 5 MG PO SCH ×3 (05:23→18:06)
[2019-02-28] MEDS: PYRIDIUM 200 MG PO PRN (07:38)
[2019-02-28] MEDS: Carafate 1 GM PO SCH ×3 (07:45→19:50)
[2019-02-28] MEDS: PANCRELIPASE DR 5,000 UNIT CAP PO SCH ×3 (07:45→19:50)
[2019-02-28] MEDS: Phenergan 25 MG INJ IV PRN ×3 (08:50→20:00)
[2019-02-28] MEDS: BUSPAR 5 MG PO SCH ×3 (08:52→21:25)
[2019-02-28] MEDS: LYRICA 100MG PO SCH ×2 (08:52→21:25)
[2019-02-28] MEDS: PATIENT OWN MEDICATION PO SCH ×3 (08:53→21:25)
[2019-02-28] MEDS: Reglan 10 MG PO SCH (08:53)
[2019-02-28] MEDS: Protonix 40MG Tablet PO SCH (08:53)
[2019-02-28] MEDS: Levofloxacin 500MG/100ML D5W 500 MG/100 ML BAG IV SCH (08:55)
[2019-02-28] MEDS: Sodium Chloride 0.9% 1000 ML 1,000 ML IV SCH (11:41)
--- NOTE | 2019-02-28 13:59 | PCM.NOTE ---
Date and Time: 02/28/19 1343 Subjective Assessment: Patient with chronic pancreatitis has had worsening of abdominal pain ,amylase and lipase elevated. Diet changed from regular to clear liquid for 24 hours and oral Hydrocodone held.Will try to modify Morphine to 3 mg q 3 H,was 4 mg q 4 H with Hydrocodone for breakthru pain which was not controling her upper abdominal pancreatitis pain, She also c/o bladder pain and Pyridium has helped some.She is using her heating pad to help the pain. - Review of Systems Constitutional: No Symptoms Respiratory: No Cough, No Short Of Breath Cardiac: No Chest Pain, No Edema, No Syncope Abdominal/Gastrointestinal: Abdominal Pain (see HPT), Nausea (no vomiting), Other (ostomy 100 to 300 ml emptied 3 x today per patient) Genitourinary Symptoms: Other (bladder pain helped with Pyridium) Musculoskeletal: No Back Pain, No Neck Pain Objective Exam General Appearance: mild distress Neurologic Exam: alert, oriented x 3, normal mood/affect Skin Exam: normal color, warm, dry Respiratory Exam: normal breath sounds Cardiovascular Exam: regular rate/rhythm Gastrointestinal/Abdomen Exam: tenderness, guarding (left and mid upper abd tenderness with guarding also tender right flank), other (Lipase =483) Extremity Exam: normal inspection (no pitting edema) Back Exam: other (no CVA tenderness) OBJECTIVE DATA Vital Signs: Vital Signs - 24 hr Temp Pulse Resp BP Pulse Ox 02/28/19 11:31 98.2 F 68 18 120/55 97 02/28/19 07:25 98.2 F 75 18 98/59 96 02/28/19 04:00 98.2 F 61 18 94/55 94 L 02/28/19 00:00 98.0 F 61 18 96/54 95 02/27/19 19:40 98.2 F 70 18 101/57 95 02/27/19 16:14 98 F 69 20 102/59 93 L Pain Assessment - Last Documented Pain Intensity 10 Pain Scale Used [facility] Intake and Output: Intake & Output 02/26/19 02/27/19 02/28/19 03/01/19 11:59 11:59 11:59 11:59 Intake Total 2160 3912 Output Total 0620 7945 200 Balance 235 -1113 -200 Weight 69.5 kg Lab Results: Lab Results-Last 24 Hours 02/27/19 Range/Units 06:30 Amylase 116 H (30-110) U/L Lipase 483 H (23-300) U/L Multi-Disciplinary Progress Notes: Multi-Disciplinary Progress Notes 02/27/19 17:24 Case Management Note by Talia Izquierdo DISCHARGE PLAN REVIEWED. NO NEEDS AT HOME. PLAN IS TO D/C TOMORROW PER PATIENT WISHES TO PRE EPISODIC LEVEL OF FUNCTION LONG CLINICALLY STABLE. WILL CONTINUE TO MONITOR FOR ALL D/C NEEDS. Initialized on 02/27/19 17:24 - END OF NOTE Assessment/Plan (1) Pancreatitis Current Visit: Yes Status: Acute Qualifiers: Chronicity: acute Pancreatitis type: unspecified pancreatitis type Acute pancreatitis complication: unspecified Qualified Code(s): K85.90 - Acute pancreatitis without necrosis or infection, unspecified Assessment & Plan: acute and chronic pancreatitis ,reduced diet to clear liquids ,adjusted pain meds.Admitted to inpatient . Code(s): K85.90 - ACUTE PANCREATITIS WITHOUT NECROSIS OR INFECTION, UNSP (2) UTI (urinary tract infection) Current Visit: No Status: Resolved Onset Date: ~07/17/18 Qualifiers: Urinary tract infection type: acute cystitis Hematuria presence: without hematuria Qualified Code(s): N30.00 - Acute cystitis without hematuria Assessment & Plan: continue IV Levaquin Code(s): N39.0 - URINARY TRACT INFECTION, SITE NOT SPECIFIED (3) Chronic kidney disease (CKD) stage G3a/A1, moderately decreased glomerular filtration rate (GFR) between 45-59 mL/min/1.73 square meter and albuminuria creatinine ratio less than 30 mg/g Current Visit: Yes Status: Chronic Assessment & Plan: Fluid status managed by [facility] Manager Code(s): N18.3 - CHRONIC KIDNEY DISEASE, STAGE 3 (MODERATE)
[2019-02-28 14:53] LABS: Appearance CLEAR (CLEAR); Bacteria RARE /HPF (NEGATIVE); Bilirubin NEGATIVE (NEGATIVE); Blood SMALL Ery/ul (0-5); Glucose NEGATIVE (NEGATIVE); Ketones NEGATIVE (NEGATIVE); Leukocyte Esterase SMALL (NEGATIVE); Nitrite POSITIVE (NEGATIVE); Protein,Urine Dip NEGATIVE (Negative); RBC 0-2 /HPF (0-2); Specific Gravity 1.003 (1.005-1.025); Urobilinogen 4 mg/dL (0-1)
[2019-03-01] MEDS: Valium 5 MG PO SCH ×3 (05:08→17:41)
[2019-03-01] MEDS: Sodium Chloride 0.9% 1000 ML 1,000 ML IV SCH (05:25)
[2019-03-01 06:07] LABS: BASOPHIL % 0.5 % (0.0-0.4); Basophil (Absolute #) 0.02 (0-0.4); Eosinophil % 5.4 % (0.00-5.0); Eosinophil (Absolute #) 0.23 (0-0.5); Granulocyte Absolute (ANC) 1.97 (1.4-6.9); Granulocytes % 46.6 % (36.0-66.0); Hematocrit 35.3 % (35-47); Hemoglobin 11.3 gm/dl (12.0-16.0); Lymphocyte (Absolute #) 1.73 (1.0-4.6); Lymphocytes % 40.9 % (24.0-44.0); Mean Cell Volume 96.4 fl (78-100); Mean Platelet Volume 9.6 fl (6-9.5); Monocyte (Absolute #) 0.28 (0.0-1.3); Monocytes % 6.6 % (0.0-12.0); Platelet Count 258 K/mm3 (150-450); Red Blood Count 3.66 M/mm3 (4.1-5.4); Red Cell Distribution Width 16.8 % (11.5-14.0); White Blood Count 4.2 K/mm3 (4.0-10.5)
[2019-03-01 06:15] LABS: ALBUMIN 3.3 g/dL (3.5-5.0); ALKALINE PHOSPHATASE 100 U/L (38-126); AMYLASE 93 U/L (30-110); ANION GAP 11.4 MEQ/L (5-15); BLOOD UREA NITROGEN 8 mg/dL (7-17); CHLORIDE 109 mmol/L (98-107); Calcium 8.3 mg/dL (8.4-10.2); Carbon Dioxide 22 mmol/L (22-30); Creatinine 1 0.86 mg/dL (0.52-1.04); Glucose 82 mg/dL (74-106); LIPASE 231 U/L (23-300); Potassium 4.1 mmol/L (3.5-5.1); SGOT/AST 25 U/L (14-36); SGPT/ALT 33 U/L (0-35); SODIUM 139 mmol/L (137-145); Total Protein 6.2 g/dL (6.3-8.2)
[2019-03-01] MEDS: MORPHINE SULFATE 4 MG INJ IV PRN ×4 (06:44→23:54)
[2019-03-01 06:49] LABS: Mean Corpuscular Hemoglobin 30.8 pg (26-32)
[2019-03-01] MEDS: Carafate 1 GM PO SCH ×3 (07:37→16:21)
[2019-03-01] MEDS: PANCRELIPASE DR 5,000 UNIT CAP PO SCH ×3 (07:37→16:22)
[2019-03-01] MEDS ORDERED: MORPHINE SULFATE 10 MG/ML IV ONE (09:12)
[2019-03-01] MEDS ORDERED: PHARMACY DOSING REQUIRED: VANCOMYCIN IV ONE (09:16)
--- NOTE | 2019-03-01 09:22 | PCM.NOTE ---
Date and Time: 03/01/19916 Subjective Assessment: Pt still having 8/10 pain, suprapubic radiating to epigastrum. Jama po (Full liquids). Pain has never been controlled since she got here. - Review of Systems Constitutional: No Fever Abdominal/Gastrointestinal: Abdominal Pain Objective Exam General Appearance: mild distress, alert Neurologic Exam: oriented x 3, cooperative Skin Exam: normal color, warm, dry, No rash Respiratory Exam: normal breath sounds, lungs clear, No crackles/rales, No rhonchi, No wheezing Cardiovascular Exam: regular rate/rhythm, normal heart sounds, No murmur Gastrointestinal/Abdomen Exam: soft, normal bowel sounds, tenderness (throughout , but worse in suprapubic area), other (suprapubic catheter present with no exudate, no erythema.) Extremity Exam: normal inspection, No pedal edema, No swelling Back Exam: normal inspection, No rash OBJECTIVE DATA Vital Signs: Vital Signs - 24 hr Temp Pulse Resp BP Pulse Ox 03/01/19 07:30 97.0 F 69 18 110/54 96 03/01/19 04:00 98.1 F 53 L 16 105/60 95 03/01/19 00:00 97.9 F 68 17 87/54 94 L 02/28/19 19:45 97.9 F 80 19 105/57 95 02/28/19 16:00 98.3 F 77 18 102/59 97 02/28/19 11:31 98.2 F 68 18 120/55 97 Pain Assessment - Last Documented Pain Intensity 7 Pain Scale Used 0-10 Pain Scale Intake and Output: Intake & Output 02/26/19 02/27/19 02/28/19 03/01/19 11:59 11:59 11:59 11:59 Intake Total 2160 3912 2190 Output Total 5561 4455 3850 Balance 235 -1113 -1660 Weight 69.5 kg Lab Results: Lab Results-Last 24 Hours 02/28/19 03/01/19 03/01/19 Range/Units 13:05 05:10 05:10 WBC 4.2 (4.0-10.5) K/mm3 RBC 3.66 L (4.1-5.4) M/mm3 Hgb 11.3 L (12.0-16.0) gm/dl Hct 35.3 (35-47) % MCV 96.4 (78-100) fl MCH 30.8 (26-32) pg MCHC 32.0 (32-36) g/dl RDW 16.8 H (11.5-14.0) % Plt Count 258 (150-450) K/mm3 MPV 9.6 H (6-9.5) fl Gran % 46.6 (36.0-66.0) % Eos # (Auto) 0.23 (0-0.5) Absolute Lymphs (auto) 1.73 (1.0-4.6) Absolute Monos (auto) 0.28 (0.0-1.3) Lymphocytes % 40.9 (24.0-44.0) % Monocytes % 6.6 (0.0-12.0) % Eosinophils % 5.4 H (0.00-5.0) % Basophils % 0.5 (0.0-0.4) % Absolute Granulocytes 1.97 (1.4-6.9) Basophils # 0.02 (0-0.4) Sodium 139 (137-145) mmol/L Potassium 4.1 (3.5-5.1) mmol/L Chloride 109 H (98-107) mmol/L Carbon Dioxide 22 (22-30) mmol/L Anion Gap 11.4 (5-15) MEQ/L BUN 8 (7-17) mg/dL Creatinine 0.86 (0.52-1.04) mg/dL Estimated GFR > 60.0 ML/MIN Glucose 82 (74-106) mg/dL Calcium 8.3 L (8.4-10.2) mg/dL Total Bilirubin 0.30 (0.2-1.3) mg/dL AST 25 (14-36) U/L ALT 33 (0-35) U/L Alkaline Phosphatase 100 (38-126) U/L Serum Total Protein 6.2 L (6.3-8.2) g/dL Albumin 3.3 L (3.5-5.0) g/dL Amylase 93 (30-110) U/L Lipase 231 (23-300) U/L Urine Color CARMEN (YELLOW) Urine Appearance CLEAR (CLEAR) Urine pH 7.0 (5-6) Ur Specific [place] 1.003 (1.005-1.025) Urine Protein NEGATIVE (Negative) Urine Ketones NEGATIVE (NEGATIVE) Urine Blood SMALL (0-5) Gregg/ul Urine Nitrite POSITIVE (NEGATIVE) Urine Bilirubin NEGATIVE (NEGATIVE) Urine Urobilinogen 4 (0-1) mg/dL Ur Leukocyte Esterase SMALL (NEGATIVE) Urine WBC (Auto) 6-10 (0-5) /HPF Urine RBC (Auto) 0-2 (0-2) /HPF U Epithel Cells (Auto) NONE (FEW) /HPF Urine Bacteria (Auto) RARE (NEGATIVE) /HPF Urine Culture Reflexed ORDERED SEPARATELY (NO) Urine Glucose NEGATIVE (NEGATIVE) mg/dL Assessment/Plan (1) UTI (urinary tract infection) Current Visit: No Status: Acute Qualifiers: Urinary tract infection type: acute cystitis Hematuria presence: without hematuria Qualified Code(s): N30.00 - Acute cystitis without hematuria Assessment & Plan: Urine culture from 02/26 with Staph hemolyticus and Staph Saprophyticus, one is resistant to levaquin. Both susceptible to macrobid, but since it is bacteriostatic not bacteriocidal I will start her on vancomycin for today; plan would be to send home on macrobid. I have given her 1 larger dose of morphine and she is to also start her po pain med now as she is starting on regular diet. If her pain was controlled tonight may be able to d/c to home, could give another dose of vancomycin in infusion tomorrow then start the macrobid. Alternatively, could keep her here another day or two for continued IV antibiotics and pain meds. Code(s): N39.0 - URINARY TRACT INFECTION, SITE NOT SPECIFIED (2) Bladder spasms Current Visit: No Status: Acute Assessment & Plan: changed azo from 200 po BID prn to 200mg po TID scheduled. (3) Chronic kidney disease (CKD) stage G3a/A1, moderately decreased glomerular filtration rate (GFR) between 45-59 mL/min/1.73 square meter and albuminuria creatinine ratio less than 30 mg/g Current Visit: Yes Status: Chronic Code(s): N18.3 - CHRONIC KIDNEY DISEASE, STAGE 3 (MODERATE) (4) Ileostomy in place Current Visit: No Status: Chronic Code(s): Z93.2 - ILEOSTOMY STATUS (5) Suprapubic catheter Current Visit: No Status: Chronic Code(s): Z93.59 - OTHER CYSTOSTOMY STATUS
[2019-03-01] MEDS: BUSPAR 5 MG PO SCH ×3 (10:02→21:16)
[2019-03-01] MEDS: Reglan 10 MG PO SCH (10:02)
[2019-03-01] MEDS: LYRICA 100MG PO SCH ×2 (10:02→21:16)
[2019-03-01] MEDS: PATIENT OWN MEDICATION PO SCH ×3 (10:02→21:16)
[2019-03-01] MEDS: Protonix 40MG Tablet PO SCH (10:03)
[2019-03-01] MEDS: SODIUM CHLORIDE 0.9% IV SCH ×2 (10:08→21:16)
[2019-03-01] MEDS: VANCOCIN IV SCH ×2 (10:08→21:16)
[2019-03-01] MEDS: PYRIDIUM 200 MG PO SCH ×3 (10:09→21:16)
[2019-03-01] MEDS: NORCO 7.5/325 MG TAB PO PRN ×2 (11:50→20:25)
[2019-03-01] MEDS: Phenergan 25 MG INJ IV PRN (15:24)
[2019-03-02] MEDS: NORCO 7.5/325 MG TAB PO PRN (04:07)
[2019-03-02] MEDS: Valium 5 MG PO SCH ×2 (05:49→11:59)
[2019-03-02 06:04] LABS: BASOPHIL % 0.7 % (0.0-0.4); Basophil (Absolute #) 0.03 (0-0.4); Eosinophil % 4.3 % (0.00-5.0); Eosinophil (Absolute #) 0.19 (0-0.5); Granulocyte Absolute (ANC) 2.27 (1.4-6.9); Granulocytes % 51.7 % (36.0-66.0); Hematocrit 35.7 % (35-47); Hemoglobin 11.5 gm/dl (12.0-16.0); Lymphocyte (Absolute #) 1.62 (1.0-4.6); Lymphocytes % 36.9 % (24.0-44.0); Mean Cell Volume 95.5 fl (78-100); Mean Corpuscular Hemoglobin 30.7 pg (26-32); Mean Corpuscular Hgb Concent. 32.2 g/dl (32-36); Mean Platelet Volume 9.3 fl (6-9.5); Monocyte (Absolute #) 0.28 (0.0-1.3); Monocytes % 6.4 % (0.0-12.0); Platelet Count 241 K/mm3 (150-450); Red Blood Count 3.74 M/mm3 (4.1-5.4); Red Cell Distribution Width 16.8 % (11.5-14.0); White Blood Count 4.4 K/mm3 (4.0-10.5)
[2019-03-02 06:17] LABS: ALBUMIN 3.6 g/dL (3.5-5.0); ALKALINE PHOSPHATASE 101 U/L (38-126); ANION GAP 10.2 MEQ/L (5-15); BLOOD UREA NITROGEN 9 mg/dL (7-17); CHLORIDE 108 mmol/L (98-107); Calcium 8.6 mg/dL (8.4-10.2); Carbon Dioxide 25 mmol/L (22-30); Creatinine 1 0.99 mg/dL (0.52-1.04); Glucose 83 mg/dL (74-106); MAGNESIUM 1.4 mg/dL (1.6-2.3); Potassium 4.1 mmol/L (3.5-5.1); SGOT/AST 29 U/L (14-36); SGPT/ALT 37 U/L (0-35); SODIUM 139 mmol/L (137-145); Total Protein 6.6 g/dL (6.3-8.2)
[2019-03-02] MEDS: MORPHINE SULFATE 4 MG INJ IV PRN ×2 (07:00→13:00)
[2019-03-02] MEDS: Sodium Chloride 0.9% 1000 ML 1,000 ML IV SCH (07:00)
[2019-03-02 07:10] VITALS: O2SAT 96
[2019-03-02] MEDS: Carafate 1 GM PO SCH ×2 (07:45→11:59)
[2019-03-02] MEDS: PANCRELIPASE DR 5,000 UNIT CAP PO SCH (07:45)
[2019-03-02] MEDS: PYRIDIUM 200 MG PO SCH (08:38)
[2019-03-02] MEDS: Phenergan 25 MG INJ IV PRN (08:39)
[2019-03-02] MEDS: BUSPAR 5 MG PO SCH (09:04)
[2019-03-02] MEDS: LYRICA 100MG PO SCH (09:05)
[2019-03-02] MEDS: Protonix 40MG Tablet PO SCH (09:05)
[2019-03-02] MEDS: Reglan 10 MG PO SCH (09:06)
[2019-03-02] MEDS: PATIENT OWN MEDICATION PO SCH ×2 (09:07→09:08)
--- NOTE | 2019-03-02 09:27 | PCM.DS ---
Discharge Summary Date of Admission: 02/28/19 13:14 Admitting Physician: JOSE ZAMORANO Consults: Consults on Case 02/26/19 11:45 Consult Nephrology ROUTINE Primary Care Provider: JOSE ZAMORANO Allergies Allergies oxybutynin Allergy (Severe, Verified 02/02/19 07:23) pharyngeal swelling oxycodone [From Percocet] Allergy (Intermediate, Verified 02/02/19 07:23) Hives Pt. stated " Immediatly after taking it I felt like I was coming out of my skin." ampicillin Allergy (Mild, Verified 02/02/19 07:23) hives erythromycin base [Erythromycin Base] Allergy (Mild, Verified 02/02/19 07:23) Hives duloxetine HCl [From Cymbalta] Allergy (Unknown, Verified 02/27/19 09:16) Tightness of Throat Hospital Summary - Hospital Course Hospital Course: Pt is a 53 yo female pt of mine from [facility] with PMHx Crohn's disease s/p colon resection with ileostomy, subsequent bladder damage with suprapubic catheter, chronic renal failure on IV fluids 3x/wk, who came in last week with abdominal pain and found to have UTI. She was admitted on IV levaquin, which was changed yesterday to IV vancomycin due to culture (which grew S. haemolyticus intermed res to Levaquin, and S. epidermis - both 50,000-60,000 CFUs). Nephrology was consulted for fluid management, thank you. She also had some elevated lipase at admission which has gone back to normal. Her abd pain has improved since admission but is still present - currently she is taking norco 7.5 alternating with some morphine IV for breakthrough pain. Will send pt home on norco 10 (sending a message to Dr. Sosa) to finish out this week and po macrobid. Discussed keeping her today for 2 doses of IV vancomycin and having her in infusion tomorrow x 2 for vancomycin, but she is anxious to d/c home and I think to start po macrobid this evening (after having this morning's dose of IV vancomycin) is reasonable. Both bacteria are susceptible to macrobid and vancomycin. - Vitals & Intake/Output Vital Signs: Vital Signs Temperature 98.0 F 03/02/19 07:09 Pulse Rate 77 03/02/19 07:09 Respiratory Rate 18 03/02/19 07:09 Blood Pressure 111/58 03/02/19 07:09 O2 Sat by Pulse Oximetry 96 03/02/19 07:09 Intake & Output: Intake & Output 02/27/19 02/28/19 03/01/19 03/02/19 11:59 11:59 11:59 11:59 Intake Total 2160 3912 2190 949 Output Total 1927 7843 4425 2404 Balance 172 -9218 -7206 -4853 Weight 69.5 kg - Lab Result Diagrams: 03/02/19 05:55 03/02/19 05:55 Lab Results-Last 24 Hrs: Lab Results-Last 24 Hours 03/02/19 03/02/19 Range/Units 05:55 05:55 WBC 4.4 (4.0-10.5) K/mm3 RBC 3.74 L (4.1-5.4) M/mm3 Hgb 11.5 L (12.0-16.0) gm/dl Hct 35.7 (35-47) % MCV 95.5 (78-100) fl MCH 30.7 (26-32) pg MCHC 32.2 (32-36) g/dl RDW 16.8 H (11.5-14.0) % Plt Count 241 (150-450) K/mm3 MPV 9.3 (6-9.5) fl Gran % 51.7 (36.0-66.0) % Eos # (Auto) 0.19 (0-0.5) Absolute Lymphs (auto) 1.62 (1.0-4.6) Absolute Monos (auto) 0.28 (0.0-1.3) Lymphocytes % 36.9 (24.0-44.0) % Monocytes % 6.4 (0.0-12.0) % Eosinophils % 4.3 (0.00-5.0) % Basophils % 0.7 (0.0-0.4) % Absolute Granulocytes 2.27 (1.4-6.9) Basophils # 0.03 (0-0.4) Sodium 139 (137-145) mmol/L Potassium 4.1 (3.5-5.1) mmol/L Chloride 108 H (98-107) mmol/L Carbon Dioxide 25 (22-30) mmol/L Anion Gap 10.2 (5-15) MEQ/L BUN 9 (7-17) mg/dL Creatinine 0.99 (0.52-1.04) mg/dL Estimated GFR > 60.0 ML/MIN Glucose 83 (74-106) mg/dL Calcium 8.6 (8.4-10.2) mg/dL Magnesium 1.4 L (1.6-2.3) mg/dL Total Bilirubin 0.30 (0.2-1.3) mg/dL AST 29 (14-36) U/L ALT 37 H (0-35) U/L Alkaline Phosphatase 101 (38-126) U/L Serum Total Protein 6.6 (6.3-8.2) g/dL Albumin 3.6 (3.5-5.0) g/dL Micro Results-Entire Visit: Microbiology 02/28/19 13:05 Urine Culture - Final Urine,Suprapubic NO GROWTH - Procedures and Test Procedures and Tests throughout Hospitalization: Therapy Orders & Screens 02/26/19 13:51 Smoking Cessation Education ONCE Comment: Diagnosis: UTI, Vomiting, Fever, Chronic Renal Insufficiency Smoking Status: Current every day smoker How long have you smoked: "20 years" Have you smoked in the past 12 months: Yes Approximately how many cigarettes per day: 10 Do you dip or chew tobacco: No Discharge Exam General Appearance: no apparent distress, alert Neurologic Exam: oriented x 3, cooperative Ears, Nose, Throat Exam: moist mucous membranes Neck Exam: normal inspection Respiratory Exam: normal breath sounds, lungs clear, No crackles/rales, No rhonchi, No wheezing Cardiovascular Exam: regular rate/rhythm, normal heart sounds, No murmur Gastrointestinal/Abdomen Exam: soft, normal bowel sounds, tenderness (suprapubic ), other (suprapubic catheter adn ileostomy in place), No distention Back Exam: normal inspection, No rash Extremity Exam: other (trace LE edema) Skin Exam: normal color, warm, dry, No rash Final Diagnosis/Problem List - Final Discharge Diagnosis/Problem (1) UTI (urinary tract infection) Current Visit: No Status: Acute Assessment & Plan: Home today on po macrobid. Any worsening she would let me know deuce and would restart vancomycin in infusion. Code(s): N39.0 - URINARY TRACT INFECTION, SITE NOT SPECIFIED (2) Bladder spasms Current Visit: No Status: Acute (3) Chronic kidney disease (CKD) stage G3a/A1, moderately decreased glomerular filtration rate (GFR) between 45-59 mL/min/1.73 square meter and albuminuria creatinine ratio less than 30 mg/g Current Visit: Yes Status: Chronic Code(s): N18.3 - CHRONIC KIDNEY DISEASE, STAGE 3 (MODERATE) (4) Ileostomy in place Current Visit: No Status: Chronic Code(s): Z93.2 - ILEOSTOMY STATUS (5) Suprapubic catheter Current Visit: No Status: Chronic Code(s): Z93.59 - OTHER CYSTOSTOMY STATUS - Discharge Disposition: Home, Self-Care Condition: Stable Prescriptions: New Hydrocodone Bit/Acetaminophen [[place] 10-325 Tablet] 1 each PO Q4H PRN #20 tablet PRN Reason: Severe Pain Phenazopyridine HCl 200 mg [Pyridium 200 mg] 200 mg PO TID #15 tablet Continue Pregabalin [Lyrica] 100 mg PO BID Diazepam 5 mg [Valium 5 MG] 10 mg PO BID Promethazine HCl 25 mg [Phenergan 25 mg] 25 mg PO BIDPRN PRN PRN Reason: Nausea Heparin Flush 500 units/5 ml [Heparin Lock Flush 100 Units/ml 5ml Syringe ] 500 units PORT FLUSH PRN PRN disp.syrin PRN Reason: Iv Port Flush Buspirone HCl 5 mg [Buspar 5 mg] 15 mg PO TID Metoclopramide HCl [Reglan] 10 mg PO DAILY Ondansetron ODT 4 MG [Zofran Odt 4 mg] 4 mg PO Q6H PRN PRN PRN Reason: Nausea Furosemide 40 mg [Lasix 40 MG] 40 mg PO DAILY PRN PRN PRN Reason: fluid retention Loperamide HCl 2 mg [Imodium 2 mg] 2 mg PO TID PRN Esomeprazole Magnesium [Nexium] 40 mg PO DAILY Spironolactone 25 mg [Aldactone 25 MG] 25 mg PO DAILY PRN PRN PRN Reason: water retention Sertraline HCl [Zoloft] 200 mg PO HS Brexpiprazole [Rexulti] 2 mg PO HS Solifenacin Succinate [Vesicare] 10 mg PO DAILY Mirabegron [Myrbetriq] 50 mg PO DAILY Hydrocodone/Acetaminophen [Hydrocodone-Acetamin 7.5-325] 1 tab PO QID PRN PRN PRN Reason: Pain Iron,Carbonyl [Iron Chews] 25 mg PO DAILY Omeprazole 40 mg PO DAILY Melatonin 20 mg PO HS Follow up with: KHUSHBU REYNOSO [CONSULTING PHYSICIAN] - 1 Week JOSE ZAMORANO [Primary Care Provider] - 03/11/19 11:15 am
[2019-03-02] MEDS ORDERED: Norco 10/325 MG Tablet PO PRN (09:32)
[2019-03-02] MEDS ORDERED: Magnesium Sulfate 1 GM/2 ML VIAL*** 2 GM in Sodium Chloride 0.9% 100 ML IVPB 100 ML IV SCH (10:00)
[2019-03-02] MEDS: SODIUM CHLORIDE 0.9% IV SCH (10:32)
[2019-03-02] MEDS: VANCOCIN IV SCH (10:32)
[2019-03-02 13:30] VITALS: BP 110/56; PULSE 70
[2019-03-03] MEDS ORDERED: TROUGH DRUG LEVELS IJ ONE (09:30)
== END 2019-03-02 13:10 | disposition home or self-care (01) | DRG 690 ==
LOC: EDBD → EDUNIT# 11:31 → MED SURG 11:31 → OBSVTOIN 02-28 13:14
PROVIDERS: ADMIT Family Medicine; ATTEND Family Medicine
DX: N39.0 Urinary tract infection, site not specified (principal); K91.2 Postsurgical malabsorption, not elsewhere classified; K86.1 Other chronic pancreatitis; K50.90 Crohn's disease, unspecified, without complications; N18.3 Chronic kidney disease, stage 3 (moderate); R10.9 Unspecified abdominal pain; R79.9 Abnormal finding of blood chemistry, unspecified; N32.89 Other specified disorders of bladder; Z93.2 Ileostomy status; Z93.59 Other cystostomy status; Z79.899 Other long term (current) drug therapy; F17.200 Nicotine dependence, unspecified, uncomplicated
CPT/HCPCS: 36415; 80053; 80202; 81001; 82150; 83690; 83735; 85025; 87086; 93268; 94762; G0378; J1170; J1642; J1956; J2270; J2550; J3370; J3475; A9270-GY

== ENCOUNTER 2019-03-17 11:10 | Observation (INO) | payer MEDICARE | END 2019-03-19 13:50 | disposition home or self-care (01) | LOC: MED SURG 11:10 ==

== ENCOUNTER 2019-03-29 12:15 | Inpatient (IN) | payer MEDICARE | END 2019-04-02 10:30 | disposition home or self-care (01) | LOC: MED SURG 12:15 ==

== ENCOUNTER 2019-04-12 09:14 | Inpatient (IN) | payer MEDICARE ==
[2019-04-12] MEDS ORDERED: Phenergan 25 MG INJ IV PRN (11:08)
[2019-04-12] MEDS: MORPHINE SULFATE 10 MG/ML IV PRN ×5 (11:59→21:55)
[2019-04-12] MEDS: Lactated Ringers 1,000 ML IV SCH ×2 (11:59→21:59)
[2019-04-12 12:15] LABS: Appearance CLEAR (CLEAR); Bacteria FEW /HPF (NEGATIVE); Bilirubin NEGATIVE (NEGATIVE); Blood MODERATE Ery/ul (0-5); Glucose NEGATIVE (NEGATIVE); Ketones NEGATIVE (NEGATIVE); Leukocyte Esterase SMALL (NEGATIVE); Mucus SLIGHT /HPF (NEGATIVE); Nitrite NEGATIVE (NEGATIVE); Protein,Urine Dip 30 (Negative); Specific Gravity 1.013 (1.005-1.025); Urobilinogen NEGATIVE mg/dL (0-1)
[2019-04-12 12:29] LABS: ALBUMIN 4.2 g/dL (3.5-5.0); ALKALINE PHOSPHATASE 108 U/L (38-126); AMYLASE 110 U/L (30-110); ANION GAP 13.2 MEQ/L (5-15); BLOOD UREA NITROGEN 13 mg/dL (7-17); CHLORIDE 105 mmol/L (98-107); Calcium 9.3 mg/dL (8.4-10.2); Carbon Dioxide 25 mmol/L (22-30); Creatinine 1 0.95 mg/dL (0.52-1.04); Glucose 97 mg/dL (74-106); LIPASE 327 U/L (23-300); Potassium 3.6 mmol/L (3.5-5.1); SGOT/AST 38 U/L (14-36); SGPT/ALT 48 U/L (0-35); SODIUM 139 mmol/L (137-145); Total Protein 7.3 g/dL (6.3-8.2)
[2019-04-12 12:31] LABS: BASOPHIL % 0.6 % (0.0-0.4); Basophil (Absolute #) 0.05 (0-0.4); Eosinophil % 3.3 % (0.00-5.0); Eosinophil (Absolute #) 0.26 (0-0.5); Granulocyte Absolute (ANC) 4.83 (1.4-6.9); Hematocrit 37.8 % (35-47); Hemoglobin 12.2 gm/dl (12.0-16.0); Lymphocyte (Absolute #) 2.12 (1.0-4.6); Lymphocytes % 27.1 % (24.0-44.0); Mean Cell Volume 96.2 fl (78-100); Mean Corpuscular Hgb Concent. 32.3 g/dl (32-36); Mean Platelet Volume 9.3 fl (6-9.5); Monocyte (Absolute #) 0.55 (0.0-1.3); Platelet Count 276 K/mm3 (150-450); Red Blood Count 3.93 M/mm3 (4.1-5.4); Red Cell Distribution Width 14.8 % (11.5-14.0); White Blood Count 7.8 K/mm3 (4.0-10.5)
--- NOTE | 2019-04-12 12:32 | XRAY ---
Exam: Supine abdomen film from 04/12/2019. Comparison: Supine abdomen film from 03/29/2019. Indication: Left upper moderate abdominal pain, pancreatitis, history of colostomy. Findings: 2 supine images of the abdomen were obtained. The bowel gas pattern appears unremarkable/nonobstructive. Surgical clips consistent with prior cholecystectomy are seen within the right upper quadrant. A colostomy is seen within the right lower quadrant. I also again note a suprapubic catheter with the tip pointing inferiorly overlying the lower pelvic midline representing no change. No organomegaly or suspicious calcifications are seen. The visualized lung bases appear clear. No acute osseous process is seen. There is slight convexity of the lower thoracic spine toward the right centered at approximately T12 representing no change. Impression: 1. Unremarkable nonobstructive bowel gas pattern. A colostomy is seen within the right lower quadrant. 2. Suprapubic catheter is again seen in unchanged position. 3. Status post cholecystectomy.
[2019-04-12] MEDS: Zofran 4 MG/2 ML VIAL IV PRN ×2 (12:33→17:02)
[2019-04-12] MEDS ORDERED: Sodium Chloride 0.9% 10 ML FLUSH Syringe IV PRN (13:15)
--- NOTE | 2019-04-12 13:35 | XRAY ---
Exam: CT of the abdomen and pelvis without IV contrast from 04/12/2019. CTDI: 16.62 mGy. Comparison: CT of the abdomen and pelvis without IV contrast from 07/17/2018. Indication: 53-year-old female with abdominal pain, history of pancreatitis; The patient also has a history of prior bowel resection with right lower quadrant ostomy. She also has a history of prior cholecystectomy, hysterectomy, and suprapubic catheter placement. Technique: Non-IV contrast axial images were obtained through the abdomen and pelvis. Reconstructed coronal and sagittal images were created and reviewed. Findings: The lung bases reveals some minimal linear scarring or chronic linear atelectasis at the mid left lung base. Otherwise, the lung bases appear clear. The heart size is normal. The liver appears of unremarkable size. Evidently, the patient has a history of prior small right hepatic lobe hemangioma at the lower medial margin of the right lobe.. This is not as well well-seen on the current non-IV contrast as compared to old post-IV contrast CT studies. I don't believe it is any larger. The remainder of the liver appears unremarkable. No intrahepatic biliary duct distention is seen. Surgical clips consistent with prior cholecystectomy are noted. The spleen is of normal size and reveals no mass. The pancreas and adrenal glands appear normal. The kidneys are of normal size and shape and reveal no calcifications or hydronephrosis. Assessment is limited without IV contrast, but no gross renal mass is seen. The abdominal aorta is of normal caliber revealing no aneurysm. No abnormal retroperitoneal lymphadenopathy is seen. No ventral abdominal wall hernia or free intraperitoneal air is seen. The patient is status post colectomy except for the rectosigmoid colon. A colostomy is again seen within the right lower quadrant. No other pelvic mass or free fluid is seen. The uterus is surgically absent. The urinary bladder is collapsed with presence of a suprapubic catheter in place. No enlarged pelvic lymph nodes are seen. The skeleton reveals no acute fracture or aggressive bone lesion. Impression: 1. I see no evidence of acute pancreatitis on the current study. The patient is status post cholecystectomy. 2. Prior known small right hepatic lobe hemangioma is not as well-seen on today's non-IV contrast study, but there does not appear to be any significant change in size. 3. Status post colectomy except for the rectosigmoid colon and right lower quadrant ostomy, representing no change. 4. Status post hysterectomy. 5. Suprapubic catheter is seen within the urinary bladder. Urinary bladder appears collapsed. 6. No other acute process is seen within the abdomen or pelvis. The remaining bowel appears nonobstructed.
[2019-04-12] MEDS ORDERED: Lasix 40 MG PO PRN (15:18)
[2019-04-12] MEDS ORDERED: Aldactone 25 MG PO PRN (15:18)
[2019-04-12] MEDS ORDERED: Ventolin Hfa MDI IH PRN (15:18)
[2019-04-12] MEDS ORDERED: IMODIUM 2 MG PO PRN (15:30)
[2019-04-12] MEDS ORDERED: PROVENTIL COMMON CANISTER IH PRN (15:39)
[2019-04-12] MEDS ORDERED: MEDICATION INTERVENTION MC SCH ×2 (16:00)
[2019-04-12] MEDS: LYRICA 100MG PO SCH (20:33)
[2019-04-12] MEDS: BUSPAR 5 MG PO SCH (20:33)
[2019-04-12] MEDS: Valium 5 MG PO SCH (20:33)
[2019-04-12] MEDS: ZOLOFT 50 MG TABLET PO SCH (20:34)
[2019-04-12] MEDS: PATIENT OWN MEDICATION PO SCH ×2 (20:35→20:39)
[2019-04-12] MEDS ORDERED: NON-FORMULARY ITEM (Sertraline Hcl [Zoloft] 200 MG) PO SCH (22:00)
[2019-04-12] MEDS ORDERED: BREXPIPRAZOLE 2 MG PO SCH (22:00)
[2019-04-12] MEDS ORDERED: LYRICA 75 MG CAP PO SCH (22:00)
[2019-04-12] MEDS ORDERED: MELATONIN 20 MG PO SCH (22:00)
[2019-04-12] MEDS ORDERED: VORTIOXETINE HYDROBROMIDE 20 MG PO SCH (22:00)
[2019-04-13] MEDS: MORPHINE SULFATE 10 MG/ML IV PRN ×9 (02:24→23:00)
[2019-04-13] MEDS: Lactated Ringers 1,000 ML IV SCH ×2 (05:27→21:58)
[2019-04-13 09:01] LABS: BASOPHIL % 1.1 % (0.0-0.4); Basophil (Absolute #) 0.07 (0-0.4); Eosinophil % 4.6 % (0.00-5.0); Eosinophil (Absolute #) 0.29 (0-0.5); Granulocyte Absolute (ANC) 3.37 (1.4-6.9); Hematocrit 37.5 % (35-47); Hemoglobin 11.8 gm/dl (12.0-16.0); Lymphocyte (Absolute #) 2.05 (1.0-4.6); Lymphocytes % 32.9 % (24.0-44.0); Mean Cell Volume 98.4 fl (78-100); Mean Corpuscular Hgb Concent. 31.5 g/dl (32-36); Mean Platelet Volume 8.8 fl (6-9.5); Monocyte (Absolute #) 0.46 (0.0-1.3); Monocytes % 7.4 % (0.0-12.0); Platelet Count 258 K/mm3 (150-450); Red Blood Count 3.81 M/mm3 (4.1-5.4); Red Cell Distribution Width 14.9 % (11.5-14.0); White Blood Count 6.2 K/mm3 (4.0-10.5)
[2019-04-13 09:03] LABS: Mean Corpuscular Hemoglobin 30.9 pg (26-32)
--- NOTE | 2019-04-13 09:14 | PCM.HP.ADD ---
Addendum to History & Physical - History & Physical Addendum Addendum to History & Physical: This certifies that the History & Physical in the electronic chart reflects the current health status of the patient. If there are changes in the H&P these changes/exceptions are listed as follows.
[2019-04-13] MEDS: BUSPAR 5 MG PO SCH ×3 (09:16→22:00)
[2019-04-13] MEDS: LYRICA 100MG PO SCH ×2 (09:17→21:59)
[2019-04-13] MEDS: PATIENT OWN MEDICATION PO SCH ×4 (09:17→22:01)
[2019-04-13] MEDS: Protonix 40MG Tablet PO SCH (09:19)
[2019-04-13] MEDS: Reglan 10 MG PO SCH (09:19)
--- NOTE | 2019-04-13 09:19 | PCM.NOTE ---
Date and Time: 04/13/19913 Subjective Assessment: She is feeling less nauseated than yesterday. Would like to increase her diet. - Review of Systems Constitutional: No Fever Abdominal/Gastrointestinal: Abdominal Pain Objective Exam General Appearance: no apparent distress, alert Neurologic Exam: oriented x 3, cooperative Skin Exam: normal color, warm, dry, No rash Eye Exam: eyes nml inspection Ears, Nose, Throat Exam: moist mucous membranes Neck Exam: normal inspection Respiratory Exam: normal breath sounds, lungs clear, No crackles/rales, No rhonchi, No wheezing Cardiovascular Exam: regular rate/rhythm, normal heart sounds, No murmur Gastrointestinal/Abdomen Exam: soft, tenderness (epigastrum, LUQ), distention ( mild epigastrum), guarding, No normal bowel sounds (hypoactive but present), No mass, No rebound Extremity Exam: normal inspection, No pedal edema, No swelling OBJECTIVE DATA Vital Signs: Vital Signs - 24 hr Temp Pulse Resp BP Pulse Ox 04/13/19 07:23 98.2 F 62 18 118/78 96 04/13/19 06:47 93 L 04/13/19 03:19 98 F 65 20 129/58 93 L 04/13/19 00:00 97.6 F 68 16 112/60 96 04/12/19 20:00 98.6 F 70 18 115/55 93 L 04/12/19 19:25 98.6 F 70 18 118/65 92 L 04/12/19 16:07 96 H 20 93 L 04/12/19 15:41 98.1 F 74 18 131/67 91 L 04/12/19 12:43 98.7 F 96 H 20 139/75 93 L 04/12/19 11:04 98.7 F 96 H 18 139/75 93 L 04/12/19 10:52 98.7 F 96 H 18 139/75 93 L Pain Assessment - Last Documented Pain Intensity 8 Pain Scale Used 0-10 Pain Scale Intake and Output: Intake & Output 04/10/19 04/11/19 04/12/19 04/13/19 11:59 11:59 11:59 11:59 Intake Total 2990 Output Total 3200 Balance -210 Weight 68.5 kg 68.5 kg Lab Results: Lab Results-Last 24 Hours 04/12/19 04/12/19 04/12/19 Range/Units 12:00 12:09 12:09 WBC 7.8 (4.0-10.5) K/mm3 RBC 3.93 L (4.1-5.4) M/mm3 Hgb 12.2 (12.0-16.0) gm/dl Hct 37.8 (35-47) % MCV 96.2 (78-100) fl MCH 31.0 (26-32) pg MCHC 32.3 (32-36) g/dl RDW 14.8 H (11.5-14.0) % Plt Count 276 (150-450) K/mm3 MPV 9.3 (6-9.5) fl Gran % 62.0 (36.0-66.0) % Eos # (Auto) 0.26 (0-0.5) Absolute Lymphs (auto) 2.12 (1.0-4.6) Absolute Monos (auto) 0.55 (0.0-1.3) Lymphocytes % 27.1 (24.0-44.0) % Monocytes % 7.0 (0.0-12.0) % Eosinophils % 3.3 (0.00-5.0) % Basophils % 0.6 (0.0-0.4) % Absolute Granulocytes 4.83 (1.4-6.9) Basophils # 0.05 (0-0.4) Sodium 139 (137-145) mmol/L Potassium 3.6 (3.5-5.1) mmol/L Chloride 105 (98-107) mmol/L Carbon Dioxide 25 (22-30) mmol/L Anion Gap 13.2 (5-15) MEQ/L BUN 13 (7-17) mg/dL Creatinine 0.95 (0.52-1.04) mg/dL Estimated GFR > 60.0 ML/MIN Glucose 97 (74-106) mg/dL Calcium 9.3 (8.4-10.2) mg/dL Total Bilirubin 0.40 (0.2-1.3) mg/dL AST 38 H (14-36) U/L ALT 48 H (0-35) U/L Alkaline Phosphatase 108 (38-126) U/L Serum Total Protein 7.3 (6.3-8.2) g/dL Albumin 4.2 (3.5-5.0) g/dL Amylase 110 (30-110) U/L Lipase 327 H (23-300) U/L Urine Color YELLOW (YELLOW) Urine Appearance CLEAR (CLEAR) Urine pH 6.0 (5-6) Ur Specific [place] 1.013 (1.005-1.025) Urine Protein 30 (Negative) Urine Ketones NEGATIVE (NEGATIVE) Urine Blood MODERATE (0-5) Gregg/ul Urine Nitrite NEGATIVE (NEGATIVE) Urine Bilirubin NEGATIVE (NEGATIVE) Urine Urobilinogen NEGATIVE (0-1) mg/dL Ur Leukocyte Esterase SMALL (NEGATIVE) Urine WBC (Auto) 11-15 (0-5) /HPF Urine RBC (Auto) 3-5 (0-2) /HPF U Epithel Cells (Auto) NONE (FEW) /HPF Urine Bacteria (Auto) FEW (NEGATIVE) /HPF Urine Mucus (Auto) SLIGHT (NEGATIVE) /HPF Urine Culture Reflexed YES (NO) Urine Glucose NEGATIVE (NEGATIVE) mg/dL 04/13/19 Range/Units 08:50 WBC 6.2 (4.0-10.5) K/mm3 RBC 3.81 L (4.1-5.4) M/mm3 Hgb 11.8 L (12.0-16.0) gm/dl Hct 37.5 (35-47) % MCV 98.4 (78-100) fl MCH 30.9 (26-32) pg MCHC 31.5 L (32-36) g/dl RDW 14.9 H (11.5-14.0) % Plt Count 258 (150-450) K/mm3 MPV 8.8 (6-9.5) fl Gran % 54.0 (36.0-66.0) % Eos # (Auto) 0.29 (0-0.5) Absolute Lymphs (auto) 2.05 (1.0-4.6) Absolute Monos (auto) 0.46 (0.0-1.3) Lymphocytes % 32.9 (24.0-44.0) % Monocytes % 7.4 (0.0-12.0) % Eosinophils % 4.6 (0.00-5.0) % Basophils % 1.1 (0.0-0.4) % Absolute Granulocytes 3.37 (1.4-6.9) Basophils # 0.07 (0-0.4) Sodium (137-145) mmol/L Potassium (3.5-5.1) mmol/L Chloride (98-107) mmol/L Carbon Dioxide (22-30) mmol/L Anion Gap (5-15) MEQ/L BUN (7-17) mg/dL Creatinine (0.52-1.04) mg/dL Estimated GFR ML/MIN Glucose (74-106) mg/dL Calcium (8.4-10.2) mg/dL Total Bilirubin (0.2-1.3) mg/dL AST (14-36) U/L ALT (0-35) U/L Alkaline Phosphatase (38-126) U/L Serum Total Protein (6.3-8.2) g/dL Albumin (3.5-5.0) g/dL Amylase (30-110) U/L Lipase (23-300) U/L Urine Color (YELLOW) Urine Appearance (CLEAR) Urine pH (5-6) Ur Specific [place] (1.005-1.025) Urine Protein (Negative) Urine Ketones (NEGATIVE) Urine Blood (0-5) Gregg/ul Urine Nitrite (NEGATIVE) Urine Bilirubin (NEGATIVE) Urine Urobilinogen (0-1) mg/dL Ur Leukocyte Esterase (NEGATIVE) Urine WBC (Auto) (0-5) /HPF Urine RBC (Auto) (0-2) /HPF U Epithel Cells (Auto) (FEW) /HPF Urine Bacteria (Auto) (NEGATIVE) /HPF Urine Mucus (Auto) (NEGATIVE) /HPF Urine Culture Reflexed (NO) Urine Glucose (NEGATIVE) mg/dL Radiology Exams: Radiology Procedures Category Date Time Status ABDOMEN AND PELVIS W/0 CONTRAS [CT] Stat Exams 04/12/19 11:11 Completed KUB Routine Exams 04/12/19 11:30 Completed Assessment/Plan (1) Abdominal pain Current Visit: No Status: Resolved Onset Date: ~07/17/18 Qualifiers: Abdominal location: epigastric Qualified Code(s): R10.13 - Epigastric pain Assessment & Plan: have been treating for pancreatitis with her slightly elevated amylase and lipase (acute on chronic), but this is her third admission. CT abd/pelvis without contrast without acute changes (done yesterday). Discussed possibility of PUD contributing - will restart carafate (but she has been on it at home) and have Dr. Arguello repeat an EGD tomorrow morning. Code(s): R10.9 - UNSPECIFIED ABDOMINAL PAIN (2) Chronic kidney disease (CKD) stage G3a/A1, moderately decreased glomerular filtration rate (GFR) between 45-59 mL/min/1.73 square meter and albuminuria creatinine ratio less than 30 mg/g Current Visit: No Status: Chronic Code(s): N18.3 - CHRONIC KIDNEY DISEASE, STAGE 3 (MODERATE) (3) Chronic pancreatitis Current Visit: No Status: Resolved Qualifiers: Pancreatitis type: idiopathic Qualified Code(s): K86.1 - Other chronic pancreatitis Code(s): K86.1 - OTHER CHRONIC PANCREATITIS
[2019-04-13] MEDS: Valium 5 MG PO SCH ×2 (09:20→22:00)
[2019-04-13 09:34] LABS: ALBUMIN 4.3 g/dL (3.5-5.0); ALKALINE PHOSPHATASE 103 U/L (38-126); AMYLASE 94 U/L (30-110); ANION GAP 11.7 MEQ/L (5-15); BLOOD UREA NITROGEN 9 mg/dL (7-17); CHLORIDE 104 mmol/L (98-107); Calcium 9.1 mg/dL (8.4-10.2); Carbon Dioxide 29 mmol/L (22-30); Creatinine 1 0.88 mg/dL (0.52-1.04); Glucose 88 mg/dL (74-106); LIPASE 185 U/L (23-300); MAGNESIUM 1.5 mg/dL (1.6-2.3); Potassium 4.7 mmol/L (3.5-5.1); SGOT/AST 49 U/L (14-36); SGPT/ALT 55 U/L (0-35); SODIUM 140 mmol/L (137-145); Total Protein 7.6 g/dL (6.3-8.2)
[2019-04-13] MEDS ORDERED: NON-FORMULARY ITEM (Omeprazole [Omeprazole] 40 MG) PO SCH (10:00)
[2019-04-13] MEDS ORDERED: NON-FORMULARY ITEM (Esomeprazole Magnesium [Nexium] 40 MG) PO SCH (10:00)
[2019-04-13] MEDS ORDERED: IRON CARBONYL PO SCH (10:00)
[2019-04-13] MEDS ORDERED: NON-FORMULARY ITEM (Solifenacin Succinate [Vesicare] 10 MG) PO SCH (10:00)
[2019-04-13] MEDS: Zofran 4 MG/2 ML VIAL IV PRN ×2 (11:16→20:30)
[2019-04-13] MEDS: Carafate 1 GM PO SCH ×3 (11:17→21:59)
[2019-04-13] MEDS: Magnesium 1 Gm / 100 Ml D5W*** 100 ML IV SCH ×4 (12:46→17:14)
[2019-04-13] MEDS: ZOLOFT 50 MG TABLET PO SCH (21:59)
[2019-04-14] MEDS: MORPHINE SULFATE 10 MG/ML IV PRN ×8 (01:38→22:36)
[2019-04-14] MEDS: Lactated Ringers 1,000 ML IV SCH ×3 (05:13→18:54)
[2019-04-14 06:27] LABS: Hematocrit 35.5 % (35-47); Mean Cell Volume 100.6 fl (78-100); Mean Platelet Volume 9.4 fl (6-9.5); Platelet Count 267 K/mm3 (150-450); Red Blood Count 3.53 M/mm3 (4.1-5.4); Red Cell Distribution Width 14.8 % (11.5-14.0); White Blood Count 5.4 K/mm3 (4.0-10.5)
[2019-04-14 06:34] LABS: Mean Corpuscular Hemoglobin 31.1 pg (26-32)
[2019-04-14 06:48] LABS: ALKALINE PHOSPHATASE 103 U/L (38-126); AMYLASE 80 U/L (30-110); ANION GAP 10.5 MEQ/L (5-15); BLOOD UREA NITROGEN 10 mg/dL (7-17); CHLORIDE 107 mmol/L (98-107); Calcium 8.7 mg/dL (8.4-10.2); Carbon Dioxide 27 mmol/L (22-30); Creatinine 1 0.83 mg/dL (0.52-1.04); Glucose 83 mg/dL (74-106); LIPASE 191 U/L (23-300); MAGNESIUM 2.3 mg/dL (1.6-2.3); Potassium 4.7 mmol/L (3.5-5.1); SGOT/AST 29 U/L (14-36); SGPT/ALT 45 U/L (0-35); SODIUM 140 mmol/L (137-145); Total Protein 6.9 g/dL (6.3-8.2)
[2019-04-14] MEDS: Carafate 1 GM PO SCH ×4 (07:58→21:02)
[2019-04-14] MEDS ORDERED: DIPRIVAN 200 MG/20 ML IV ONE (08:36)
--- NOTE | 2019-04-14 09:04 | PCM.NOTE ---
Date and Time: 04/14/19 0859 Subjective Assessment: She is feeling a little nauseated this morning. Abd pain is unchanged. Still on CLD, but would like to try advancing diet after this EGD. - Review of Systems Constitutional: No Fever Abdominal/Gastrointestinal: Abdominal Pain, Nausea Objective Exam General Appearance: mild distress, alert Neurologic Exam: oriented x 3, cooperative Skin Exam: normal color, warm, dry, No rash Eye Exam: eyes nml inspection Ears, Nose, Throat Exam: moist mucous membranes Respiratory Exam: normal breath sounds, lungs clear, wheezing (faint scattered) , No crackles/rales, No rhonchi Cardiovascular Exam: regular rate/rhythm, normal heart sounds, No murmur Gastrointestinal/Abdomen Exam: soft, tenderness (throughout, worse in epigastrum ), guarding, No normal bowel sounds (hypoactive but present), No distention, No mass, No rebound Extremity Exam: normal inspection, No pedal edema, No swelling Back Exam: normal inspection, No rash OBJECTIVE DATA Vital Signs: Vital Signs - 24 hr Temp Pulse Resp BP Pulse Ox 04/14/19 07:39 98.2 F 59 L 18 123/59 94 L 04/14/19 07:01 96 04/14/19 06:31 97.9 F 59 L 17 108/57 96 04/14/19 04:00 97.9 F 59 L 17 108/57 96 04/13/19 23:42 97.6 F 65 14 110/61 94 L 04/13/19 20:00 97.5 F 67 17 133/74 93 L 04/13/19 19:32 60 16 94 L 04/13/19 16:00 98.3 F 65 18 120/61 96 04/13/19 11:13 98.4 F 64 18 117/65 95 Pain Assessment - Last Documented Pain Intensity 8 Pain Scale Used 0-10 Pain Scale Intake and Output: Intake & Output 04/11/19 04/12/19 04/13/19 04/14/19 11:59 11:59 11:59 11:59 Intake Total 2990 3137 Output Total 3200 3650 Balance -210 -513 Weight 68.5 kg 68.5 kg 68.5 kg Lab Results: Lab Results-Last 24 Hours 04/13/19 04/13/19 04/14/19 Range/Units 08:50 08:50 05:00 WBC 6.2 5.4 (4.0-10.5) K/mm3 RBC 3.81 L 3.53 L (4.1-5.4) M/mm3 Hgb 11.8 L 11.0 L (12.0-16.0) gm/dl Hct 37.5 35.5 (35-47) % MCV 98.4 100.6 H (78-100) fl MCH 30.9 31.1 (26-32) pg MCHC 31.5 L 31.0 L (32-36) g/dl RDW 14.9 H 14.8 H (11.5-14.0) % Plt Count 258 267 (150-450) K/mm3 MPV 8.8 9.4 (6-9.5) fl Gran % 54.0 (36.0-66.0) % Eos # (Auto) 0.29 (0-0.5) Absolute Lymphs (auto) 2.05 (1.0-4.6) Absolute Monos (auto) 0.46 (0.0-1.3) Lymphocytes % 32.9 (24.0-44.0) % Monocytes % 7.4 (0.0-12.0) % Eosinophils % 4.6 (0.00-5.0) % Basophils % 1.1 (0.0-0.4) % Absolute Granulocytes 3.37 (1.4-6.9) Basophils # 0.07 (0-0.4) Sodium 140 (137-145) mmol/L Potassium 4.7 D (3.5-5.1) mmol/L Chloride 104 (98-107) mmol/L Carbon Dioxide 29 (22-30) mmol/L Anion Gap 11.7 (5-15) MEQ/L BUN 9 (7-17) mg/dL Creatinine 0.88 (0.52-1.04) mg/dL Estimated GFR > 60.0 ML/MIN Glucose 88 (74-106) mg/dL Calcium 9.1 (8.4-10.2) mg/dL Magnesium 1.5 L (1.6-2.3) mg/dL Total Bilirubin 0.40 (0.2-1.3) mg/dL AST 49 H (14-36) U/L ALT 55 H (0-35) U/L Alkaline Phosphatase 103 (38-126) U/L Serum Total Protein 7.6 (6.3-8.2) g/dL Albumin 4.3 (3.5-5.0) g/dL Amylase 94 (30-110) U/L Lipase 185 (23-300) U/L 04/14/19 Range/Units 05:00 WBC (4.0-10.5) K/mm3 RBC (4.1-5.4) M/mm3 Hgb (12.0-16.0) gm/dl Hct (35-47) % MCV (78-100) fl MCH (26-32) pg MCHC (32-36) g/dl RDW (11.5-14.0) % Plt Count (150-450) K/mm3 MPV (6-9.5) fl Gran % (36.0-66.0) % Eos # (Auto) (0-0.5) Absolute Lymphs (auto) (1.0-4.6) Absolute Monos (auto) (0.0-1.3) Lymphocytes % (24.0-44.0) % Monocytes % (0.0-12.0) % Eosinophils % (0.00-5.0) % Basophils % (0.0-0.4) % Absolute Granulocytes (1.4-6.9) Basophils # (0-0.4) Sodium 140 (137-145) mmol/L Potassium 4.7 (3.5-5.1) mmol/L Chloride 107 (98-107) mmol/L Carbon Dioxide 27 (22-30) mmol/L Anion Gap 10.5 (5-15) MEQ/L BUN 10 (7-17) mg/dL Creatinine 0.83 (0.52-1.04) mg/dL Estimated GFR > 60.0 ML/MIN Glucose 83 (74-106) mg/dL Calcium 8.7 (8.4-10.2) mg/dL Magnesium 2.3 (1.6-2.3) mg/dL Total Bilirubin 0.30 (0.2-1.3) mg/dL AST 29 (14-36) U/L ALT 45 H (0-35) U/L Alkaline Phosphatase 103 (38-126) U/L Serum Total Protein 6.9 (6.3-8.2) g/dL Albumin 4.0 (3.5-5.0) g/dL Amylase 80 (30-110) U/L Lipase 191 (23-300) U/L Radiology Exams: Radiology Procedures Category Date Time Status ABDOMEN AND PELVIS W/0 CONTRAS [CT] Stat Exams 04/12/19 11:11 Completed KUB Routine Exams 04/12/19 11:30 Completed Assessment/Plan (1) Abdominal pain Current Visit: No Status: Resolved Onset Date: ~07/17/18 Qualifiers: Abdominal location: epigastric Qualified Code(s): R10.13 - Epigastric pain Assessment & Plan: EGD this morning. If no findings on EGD, would consider revisiting with GI regarding changing her pancreatic supplements. Will advance diet. Code(s): R10.9 - UNSPECIFIED ABDOMINAL PAIN (2) Chronic kidney disease (CKD) stage G3a/A1, moderately decreased glomerular filtration rate (GFR) between 45-59 mL/min/1.73 square meter and albuminuria creatinine ratio less than 30 mg/g Current Visit: No Status: Chronic Code(s): N18.3 - CHRONIC KIDNEY DISEASE, STAGE 3 (MODERATE) (3) Chronic pancreatitis Current Visit: No Status: Chronic Qualifiers: Pancreatitis type: idiopathic Qualified Code(s): K86.1 - Other chronic pancreatitis Assessment & Plan: Will continue fluids and checking labs daily. Continue IV fluids. Code(s): K86.1 - OTHER CHRONIC PANCREATITIS
[2019-04-14] MEDS: Zofran 4 MG/2 ML VIAL IV PRN ×2 (09:45→18:55)
[2019-04-14] MEDS: PATIENT OWN MEDICATION PO SCH ×4 (10:59→21:04)
[2019-04-14] MEDS: Valium 5 MG PO SCH ×2 (11:00→21:02)
[2019-04-14] MEDS: LYRICA 100MG PO SCH ×2 (11:02→21:01)
[2019-04-14] MEDS: Reglan 10 MG PO SCH (11:02)
[2019-04-14] MEDS: Protonix 40MG Tablet PO SCH (11:03)
[2019-04-14] MEDS: BUSPAR 5 MG PO SCH ×3 (11:03→21:01)
--- NOTE | 2019-04-14 11:37 | OP ---
SURGERY DATE: 04/14/19 SURGERY TIME: 838 PREOPERATIVE DIAGNOSIS: 1. EPIGASTRIC ABDOMINAL PAIN. 2. NAUSEA AND VOMITING. POSTOPERATIVE DIAGNOSIS: 1. NORMAL EXAM. PROCEDURE: 1. EGD. SPECIMENS: None. ESTIMATED BLOOD LOSS: None. SURGEON: Dr. Evens Arguello. ANESTHESIA: MAC by Oscar Blackwood CRNA. DESCRIPTION OF PROCEDURE: After informed written consent was obtained, the patient was taken to the endoscopy suite. She had a bite block inserted and underwent monitored anesthesia. The endoscope was inserted in the posterior oropharynx and under direct visualization, the esophagus was traversed. The esophageal mucosa had a normal appearance free of any lesions or defects. The gastroesophageal junction likewise had a normal appearance with no appreciable abnormalities. Gastric mucosa had a normal rugated appearance free of any lesions or defects. The pylorus was traversed and the 1st and 2nd portions of the duodenum were within normal limits. No obvious abnormalities. Upon withdrawal from the pylorus, retroflexion was performed and showed no obvious lesions in the superior aspect of the stomach. No evidence of any hiatal hernia that was of any clinical significance. Upon withdrawal, again the gastroesophageal junction and the esophageal mucosa appeared normal. The scope was removed and the patient was transferred back to her inpatient room under the care of Dr. Haji.
[2019-04-14] MEDS: ZOLOFT 50 MG TABLET PO SCH (21:08)
[2019-04-15] MEDS: Lactated Ringers 1,000 ML IV SCH ×6 (01:18→23:37)
[2019-04-15] MEDS: MORPHINE SULFATE 10 MG/ML IV PRN ×10 (05:26→23:24)
[2019-04-15 05:30] LABS: Hematocrit 33.6 % (35-47); Hemoglobin 10.3 gm/dl (12.0-16.0); Mean Cell Volume 100.9 fl (78-100); Mean Corpuscular Hemoglobin 30.9 pg (26-32); Mean Corpuscular Hgb Concent. 30.7 g/dl (32-36); Platelet Count 244 K/mm3 (150-450); Red Blood Count 3.33 M/mm3 (4.1-5.4); Red Cell Distribution Width 14.9 % (11.5-14.0); White Blood Count 4.9 K/mm3 (4.0-10.5)
[2019-04-15 05:36] LABS: ALBUMIN 3.4 g/dL (3.5-5.0); ALKALINE PHOSPHATASE 85 U/L (38-126); AMYLASE 77 U/L (30-110); ANION GAP 9.5 MEQ/L (5-15); BLOOD UREA NITROGEN 12 mg/dL (7-17); CHLORIDE 106 mmol/L (98-107); Calcium 8.4 mg/dL (8.4-10.2); Carbon Dioxide 29 mmol/L (22-30); Glucose 85 mg/dL (74-106); LIPASE 216 U/L (23-300); MAGNESIUM 1.7 mg/dL (1.6-2.3); Potassium 4.4 mmol/L (3.5-5.1); SGOT/AST 23 U/L (14-36); SGPT/ALT 32 U/L (0-35); SODIUM 141 mmol/L (137-145); Total Protein 6.1 g/dL (6.3-8.2)
[2019-04-15] MEDS: Carafate 1 GM PO SCH ×4 (07:19→22:45)
[2019-04-15] MEDS: BUSPAR 5 MG PO SCH ×3 (09:08→22:45)
[2019-04-15] MEDS: Valium 5 MG PO SCH ×2 (09:09→22:46)
[2019-04-15] MEDS: Reglan 10 MG PO SCH (09:09)
[2019-04-15] MEDS: LYRICA 100MG PO SCH ×2 (09:09→22:46)
[2019-04-15] MEDS: Protonix 40MG Tablet PO SCH (09:09)
[2019-04-15] MEDS: PATIENT OWN MEDICATION PO SCH ×4 (09:09→22:48)
--- NOTE | 2019-04-15 09:23 | PCM.NOTE ---
Date and Time: 04/15/19919 Subjective Assessment: Having some increased abd pain this morning but ate eggs with cheese for breakfast Objective Exam General Appearance: no apparent distress, alert, other (sitting up on side of bed) Neurologic Exam: oriented x 3, cooperative Skin Exam: normal color, warm, dry, No rash Respiratory Exam: normal breath sounds, lungs clear, No crackles/rales, No rhonchi, No wheezing Cardiovascular Exam: regular rate/rhythm, normal heart sounds, No murmur Gastrointestinal/Abdomen Exam: soft, normal bowel sounds, tenderness (epigastrum ), distention (mild, epigastrum), guarding, No mass, No rebound Extremity Exam: normal inspection, No pedal edema, No swelling Back Exam: normal inspection, No rash OBJECTIVE DATA Vital Signs: Vital Signs - 24 hr Temp Pulse Resp BP Pulse Ox 04/15/19 08:00 98.4 F 67 16 145/67 93 L 04/15/19 06:43 93 L 04/15/19 04:00 18 95 04/14/19 23:47 98.5 F 62 18 121/63 96 04/14/19 19:50 97.7 F 72 18 133/69 95 04/14/19 19:37 68 16 93 L 04/14/19 16:00 97.4 F 68 20 105/51 95 04/14/19 12:00 98.1 F 73 18 122/63 97 Pain Assessment - Last Documented Pain Intensity 9 Pain Scale Used 0-10 Pain Scale Intake and Output: Intake & Output 04/12/19 04/13/19 04/14/19 04/15/19 11:59 11:59 11:59 11:59 Intake Total 2990 3137 4332 Output Total 3200 3650 1175 Balance -210 -513 3157 Weight 68.5 kg 68.5 kg 68.5 kg Lab Results: Lab Results-Last 24 Hours 04/15/19 04/15/19 Range/Units 05:22 05:22 WBC 4.9 (4.0-10.5) K/mm3 RBC 3.33 L (4.1-5.4) M/mm3 Hgb 10.3 L (12.0-16.0) gm/dl Hct 33.6 L (35-47) % MCV 100.9 H (78-100) fl MCH 30.9 (26-32) pg MCHC 30.7 L (32-36) g/dl RDW 14.9 H (11.5-14.0) % Plt Count 244 (150-450) K/mm3 MPV 9.0 (6-9.5) fl Sodium 141 (137-145) mmol/L Potassium 4.4 (3.5-5.1) mmol/L Chloride 106 (98-107) mmol/L Carbon Dioxide 29 (22-30) mmol/L Anion Gap 9.5 (5-15) MEQ/L BUN 12 (7-17) mg/dL Creatinine 0.80 (0.52-1.04) mg/dL Estimated GFR > 60.0 ML/MIN Glucose 85 (74-106) mg/dL Calcium 8.4 (8.4-10.2) mg/dL Magnesium 1.7 (1.6-2.3) mg/dL Total Bilirubin 0.20 (0.2-1.3) mg/dL AST 23 (14-36) U/L ALT 32 (0-35) U/L Alkaline Phosphatase 85 (38-126) U/L Serum Total Protein 6.1 L (6.3-8.2) g/dL Albumin 3.4 L (3.5-5.0) g/dL Amylase 77 (30-110) U/L Lipase 216 (23-300) U/L Radiology Exams: Radiology Procedures Category Date Time Status LIVER OR SPLEEN [US] Routine Exams 04/15/19 Ordered Assessment/Plan (1) Abdominal pain Current Visit: No Status: Resolved Onset Date: ~07/17/18 Qualifiers: Abdominal location: epigastric Qualified Code(s): R10.13 - Epigastric pain Assessment & Plan: Her EGD without acute findings per verbal report from Dr. Arguello yesterday. Will continue treating as for pancreatitis. Go ahead and make pt and outpatient appt with Dr. Castle as I think this is a logical next step for her. Try continued eating today. Code(s): R10.9 - UNSPECIFIED ABDOMINAL PAIN (2) Chronic kidney disease (CKD) stage G3a/A1, moderately decreased glomerular filtration rate (GFR) between 45-59 mL/min/1.73 square meter and albuminuria creatinine ratio less than 30 mg/g Current Visit: No Status: Chronic Code(s): N18.3 - CHRONIC KIDNEY DISEASE, STAGE 3 (MODERATE) (3) Chronic pancreatitis Current Visit: No Status: Chronic Qualifiers: Pancreatitis type: idiopathic Qualified Code(s): K86.1 - Other chronic pancreatitis Assessment & Plan: Lipase up just a little this morning after eating yesterday but not in the abnormal range. Code(s): K86.1 - OTHER CHRONIC PANCREATITIS (4) Elevated LFTs Current Visit: Yes Status: Acute Assessment & Plan: liver u/s today Code(s): R94.5 - ABNORMAL RESULTS OF LIVER FUNCTION STUDIES
[2019-04-15] MEDS ORDERED: Magnesium Sulfate 1 GM/2 ML VIAL IV ONE (09:30)
[2019-04-15] MEDS ORDERED: Magnesium Sulfate 1 GM/2 ML VIAL*** 2 GM in Sodium Chloride 0.9% 100 ML IVPB 100 ML IV SCH (10:00)
[2019-04-15] MEDS: Levofloxacin 500MG/100ML D5W 500 MG/100 ML BAG IV SCH (10:33)
[2019-04-15] MEDS ORDERED: Tums EX 750 MG PO PRN (10:34)
--- NOTE | 2019-04-15 11:08 | XRAY ---
Indication: Elevated liver function tests. Cholecystectomy. Two-dimensional right upper quadrant abdominal sonogram performed. Comparison: None Liver is enlarged measuring 20.1 m in greatest dimension. Visualized portions of the liver and pancreas appear homogeneous in echogenicity. No ascites. Gallbladder surgically absent. Common bile duct measures 2.2 mm. No intrahepatic biliary distention. Right kidney measures 8.5 x 3.5 x 4.3 cm and appears sonographically unremarkable. Impression: Hepatomegaly and cholecystectomy.
[2019-04-15] MEDS: ZOLOFT 50 MG TABLET PO SCH (22:45)
[2019-04-16] MEDS: MORPHINE SULFATE 10 MG/ML IV PRN ×3 (03:31→08:39)
[2019-04-16 05:08] LABS: Hematocrit 33.3 % (35-47); Hemoglobin 10.4 gm/dl (12.0-16.0); Mean Corpuscular Hemoglobin 31.2 pg (26-32); Mean Corpuscular Hgb Concent. 31.2 g/dl (32-36); Mean Platelet Volume 9.1 fl (6-9.5); Platelet Count 239 K/mm3 (150-450); Red Blood Count 3.33 M/mm3 (4.1-5.4); Red Cell Distribution Width 14.7 % (11.5-14.0); White Blood Count 4.6 K/mm3 (4.0-10.5)
[2019-04-16 05:29] LABS: ALBUMIN 3.6 g/dL (3.5-5.0); ALKALINE PHOSPHATASE 75 U/L (38-126); AMYLASE 75 U/L (30-110); ANION GAP 11.3 MEQ/L (5-15); BLOOD UREA NITROGEN 13 mg/dL (7-17); CHLORIDE 105 mmol/L (98-107); Calcium 8.8 mg/dL (8.4-10.2); Carbon Dioxide 29 mmol/L (22-30); Creatinine 1 0.84 mg/dL (0.52-1.04); Glucose 90 mg/dL (74-106); LIPASE 171 U/L (23-300); MAGNESIUM 1.6 mg/dL (1.6-2.3); Potassium 4.2 mmol/L (3.5-5.1); SGOT/AST 21 U/L (14-36); SGPT/ALT 29 U/L (0-35); SODIUM 141 mmol/L (137-145); Total Protein 6.3 g/dL (6.3-8.2)
[2019-04-16] MEDS: Carafate 1 GM PO SCH ×2 (08:06→12:18)
[2019-04-16] MEDS ORDERED: PROVENTIL 2.5 MG/3 ML NEB IH ONE (08:39)
[2019-04-16] MEDS ORDERED: PROVENTIL 2.5 MG/3 ML NEB IH PRN (08:41)
[2019-04-16] MEDS ORDERED: Norco 10/325 MG Tablet PO PRN (08:47)
--- NOTE | 2019-04-16 08:54 | PCM.NOTE ---
Date and Time: 04/16/19848 Subjective Assessment: She is currently having 8/10 pain but it is time for her pain meds. She is tolerating reg diet. Was found to have some bacteria growing in the urine yesterday so since she is symptomatic I did start her on IV levaquin. Her u/s liver revealed hepatomegaly. She is complaining of some chest pressure this morning that she is reluctant to tell me about. She thinks it's related to her wheezing. - Review of Systems Constitutional: No Fever Abdominal/Gastrointestinal: Abdominal Pain, No Vomiting Objective Exam General Appearance: no apparent distress, alert Neurologic Exam: oriented x 3, cooperative Skin Exam: normal color, warm, dry, No rash Respiratory Exam: lungs clear, wheezing (throughout), No crackles/rales, No rhonchi Cardiovascular Exam: regular rate/rhythm, normal heart sounds, No murmur Gastrointestinal/Abdomen Exam: soft, normal bowel sounds, No tenderness Extremity Exam: normal inspection, No pedal edema, No swelling Back Exam: normal inspection, No rash OBJECTIVE DATA Vital Signs: Vital Signs - 24 hr Temp Pulse Resp BP Pulse Ox 04/16/19 08:15 61 16 94 L 04/16/19 07:48 96.3 F 67 20 161/74 92 L 04/16/19 04:00 97.9 F 61 17 134/65 94 L 04/15/19 23:38 98.5 F 58 L 18 143/74 94 L 04/15/19 20:47 77 18 95 04/15/19 19:54 98.4 F 73 18 137/79 97 04/15/19 15:49 97.8 F 72 18 140/61 95 04/15/19 11:33 98.6 F 64 18 154/76 98 Pain Assessment - Last Documented Pain Intensity 8 Pain Scale Used 0-10 Pain Scale Intake and Output: Intake & Output 04/13/19 04/14/19 04/15/19 04/16/19 11:59 11:59 11:59 11:59 Intake Total 2990 3137 4332 4198 Output Total 3200 3650 2075 3600 Balance -210 -197 0506 340 Weight 68.5 kg 68.5 kg 68.5 kg Lab Results: Lab Results-Last 24 Hours 04/16/19 04/16/19 Range/Units 04:35 04:35 WBC 4.6 (4.0-10.5) K/mm3 RBC 3.33 L (4.1-5.4) M/mm3 Hgb 10.4 L (12.0-16.0) gm/dl Hct 33.3 L (35-47) % MCV 100.0 (78-100) fl MCH 31.2 (26-32) pg MCHC 31.2 L (32-36) g/dl RDW 14.7 H (11.5-14.0) % Plt Count 239 (150-450) K/mm3 MPV 9.1 (6-9.5) fl Sodium 141 (137-145) mmol/L Potassium 4.2 (3.5-5.1) mmol/L Chloride 105 (98-107) mmol/L Carbon Dioxide 29 (22-30) mmol/L Anion Gap 11.3 (5-15) MEQ/L BUN 13 (7-17) mg/dL Creatinine 0.84 (0.52-1.04) mg/dL Estimated GFR > 60.0 ML/MIN Glucose 90 (74-106) mg/dL Calcium 8.8 (8.4-10.2) mg/dL Magnesium 1.6 (1.6-2.3) mg/dL Total Bilirubin 0.30 (0.2-1.3) mg/dL AST 21 (14-36) U/L ALT 29 (0-35) U/L Alkaline Phosphatase 75 (38-126) U/L Serum Total Protein 6.3 (6.3-8.2) g/dL Albumin 3.6 (3.5-5.0) g/dL Amylase 75 (30-110) U/L Lipase 171 (23-300) U/L Radiology Exams: Radiology Procedures Category Date Time Status LIVER OR SPLEEN [US] Routine Exams 04/15/19 10:40 Completed Portable Chest [CHEST 1 VIEW (PORTABLE)] Urgent Exams 04/16/19 08:45 Ordered Assessment/Plan (1) Abdominal pain Current Visit: No Status: Resolved Onset Date: ~07/17/18 Qualifiers: Abdominal location: epigastric Qualified Code(s): R10.13 - Epigastric pain Assessment & Plan: Treating for pancreatitis. EGD without acute findings. Liver u/s with hepatomegaly. She will be f/u with GI, Dr. Castle, outpatient. Plan is to try to transition to a po pain med that would tide her over until she can see Dr. Sosa next week (Fri). She is however allergic to oxycodone. Resume her norco and add morphine ER 15mg po BID. Goal would be to discharge to home tomorrow. Code(s): R10.9 - UNSPECIFIED ABDOMINAL PAIN (2) Chronic kidney disease (CKD) stage G3a/A1, moderately decreased glomerular filtration rate (GFR) between 45-59 mL/min/1.73 square meter and albuminuria creatinine ratio less than 30 mg/g Current Visit: No Status: Chronic Code(s): N18.3 - CHRONIC KIDNEY DISEASE, STAGE 3 (MODERATE) (3) Chronic pancreatitis Current Visit: No Status: Chronic Qualifiers: Pancreatitis type: idiopathic Qualified Code(s): K86.1 - Other chronic pancreatitis Code(s): K86.1 - OTHER CHRONIC PANCREATITIS (4) Elevated LFTs Current Visit: Yes Status: Acute Assessment & Plan: normal this morning. Code(s): R94.5 - ABNORMAL RESULTS OF LIVER FUNCTION STUDIES
--- NOTE | 2019-04-16 09:07 | XRAY ---
Indication: Short of breath. Comparison: October 29, 2018. Portable chest demonstrates new lingula discoid atelectasis/scarring. Remaining heart and lungs unremarkable with stable right Port-A-Cath. Bony thorax intact.
[2019-04-16 09:25] VITALS: O2SAT 95
[2019-04-16] MEDS ORDERED: Ms Contin 15 MG PO SCH (10:00)
[2019-04-16] MEDS: Levofloxacin 500MG/100ML D5W 500 MG/100 ML BAG IV SCH (10:17)
[2019-04-16] MEDS: Protonix 40MG Tablet PO SCH (10:18)
[2019-04-16] MEDS: BUSPAR 5 MG PO SCH ×2 (10:18→15:17)
[2019-04-16] MEDS: Reglan 10 MG PO SCH (10:18)
[2019-04-16] MEDS: LYRICA 100MG PO SCH (10:18)
[2019-04-16] MEDS: Valium 5 MG PO SCH (10:18)
[2019-04-16] MEDS: PATIENT OWN MEDICATION PO SCH ×2 (10:20→10:21)
[2019-04-16] MEDS: Lactated Ringers 1,000 ML IV SCH (11:40)
[2019-04-16 12:05] VITALS: BP 137/74; PULSE 72
--- NOTE | 2019-04-16 15:22 | PCM.DS ---
Discharge Summary Date of Admission: 04/13/19 09:14 Admitting Physician: JOSE ZAMORANO Consults: Consults on Case 04/13/19 09:08 Consult Surgery ROUTINE Primary Care Provider: JOSE ZAMORANO Allergies Allergies oxybutynin Allergy (Severe, Verified 02/02/19 07:23) pharyngeal swelling oxycodone [From Percocet] Allergy (Intermediate, Verified 02/02/19 07:23) Hives Pt. stated " Immediatly after taking it I felt like I was coming out of my skin." ampicillin Allergy (Mild, Verified 02/02/19 07:23) hives erythromycin base [Erythromycin Base] Allergy (Mild, Verified 02/02/19 07:23) Hives duloxetine HCl [From Cymbalta] Allergy (Unknown, Verified 02/27/19 09:16) Tightness of Throat Hospital Summary - Hospital Course Hospital Course: Pt is a 53 yo female pt of mine from [facility] with PMHx Crohn's dz s/p bowel resection with ileostomy, bowel damage with suprapubic catheter, chronic renal failure, and chronic pancreatitis who was admitted to hospital with chronic pancreatitis. Her numbers corrected after 2d but she continued to have abdominal pain. She was found to have a UTI with small # bacterial colonies but I did treat for that with levaquin due to her continued abdominal pain. EGD was done with no acute findings. Liver u/s done with hepatomegaly, no other findings. Her diet was advanced, which she tolerated with no vomiting but did continue to have abdominal pain. On her last day I tried po morphine 15 ER BID and she was a bit sleepy at first (with stable vital signs) but now states her pain is "great" and she is ready to d/c home! I am letting her pain mgmt DrLorna, Dr. Sosa, know that I started her on this morphine and am only giving her enough to make it to her pain management appt next week so he can re- evaluate her. She was given magnesium IV several times during her stay. She will be sent home on Levaquin po to complete 5d of treatment (3 more days). - Vitals & Intake/Output Vital Signs: Vital Signs Temperature 99.2 F 04/16/19 12:00 Pulse Rate 72 04/16/19 12:00 Respiratory Rate 16 04/16/19 12:00 Blood Pressure 137/74 04/16/19 12:00 O2 Sat by Pulse Oximetry 95 04/16/19 12:00 Intake & Output: Intake & Output 04/14/19 04/15/19 04/16/19 04/17/19 11:59 11:59 11:59 11:59 Intake Total 3138 4332 4198 Output Total 3655 3691 3600 Balance -513 4561 598 Weight 68.5 kg 68.5 kg - Lab Result Diagrams: 04/16/19 04:35 04/16/19 04:35 Lab Results-Last 24 Hrs: Lab Results-Last 24 Hours 04/16/19 04/16/19 04/16/19 Range/Units 04:35 04:35 08:46 WBC 4.6 (4.0-10.5) K/mm3 RBC 3.33 L (4.1-5.4) M/mm3 Hgb 10.4 L (12.0-16.0) gm/dl Hct 33.3 L (35-47) % MCV 100.0 (78-100) fl MCH 31.2 (26-32) pg MCHC 31.2 L (32-36) g/dl RDW 14.7 H (11.5-14.0) % Plt Count 239 (150-450) K/mm3 MPV 9.1 (6-9.5) fl Sodium 141 (137-145) mmol/L Potassium 4.2 (3.5-5.1) mmol/L Chloride 105 (98-107) mmol/L Carbon Dioxide 29 (22-30) mmol/L Anion Gap 11.3 (5-15) MEQ/L BUN 13 (7-17) mg/dL Creatinine 0.84 (0.52-1.04) mg/dL Estimated GFR > 60.0 ML/MIN Glucose 90 (74-106) mg/dL Calcium 8.8 (8.4-10.2) mg/dL Magnesium 1.6 (1.6-2.3) mg/dL Total Bilirubin 0.30 (0.2-1.3) mg/dL AST 21 (14-36) U/L ALT 29 (0-35) U/L Alkaline Phosphatase 75 (38-126) U/L Troponin I < 0.012 (0.000-0.034) ng/mL Serum Total Protein 6.3 (6.3-8.2) g/dL Albumin 3.6 (3.5-5.0) g/dL Amylase 75 (30-110) U/L Lipase 171 (23-300) U/L Micro Results-Entire Visit: Microbiology 04/12/19 12:00 Urine Culture - Final Urine, Void Enterococcus Faecalis - Radiology Exams Ordered Rad Exams-Entire Visit: Radiology Procedures Category Date Time Status LIVER OR SPLEEN [US] Routine Exams 04/15/19 10:40 Completed Portable Chest [CHEST 1 VIEW (PORTABLE)] Urgent Exams 04/16/19 08:45 Completed - Procedures and Test Procedures and Tests throughout Hospitalization: Therapy Orders & Screens 04/12/19 12:55 Smoking Cessation Education ONCE Comment: Diagnosis: abdominal pain, pancreatitis, chronic renal failure Smoking Status: Current every day smoker How long have you smoked: 20 years Have you smoked in the past 12 months: Yes Approximately how many cigarettes per day: 1/2 PPD Do you dip or chew tobacco: No 04/12/19 16:06 Respiratory Therapy Assessment DAILY Comment: Diagnosis: abdominal pain, pancreatitis, chronic renal failure 04/16/19 08:31 EKG ROUTINE Comment: Diagnosis: CHRONIC PANCREATITIS 04/16/19 08:55 Peak Expiratory Flow Rate ONCE Comment: Reason For Exam: Diagnosis: CHRONIC PANCREATITIS Discharge Exam General Appearance: no apparent distress, alert, other (done this morning) Neurologic Exam: oriented x 3, cooperative Eye Exam: eyes nml inspection Ears, Nose, Throat Exam: moist mucous membranes Neck Exam: normal inspection Respiratory Exam: normal breath sounds, lungs clear, wheezing (scattered throughout), No crackles/rales, No rhonchi Cardiovascular Exam: regular rate/rhythm, normal heart sounds, No murmur Gastrointestinal/Abdomen Exam: soft, normal bowel sounds, tenderness ( epigastrum and LUQ), guarding, No distention, No mass, No rebound Extremity Exam: normal inspection, No swelling, No tenderness Skin Exam: normal color, warm, dry, No rash Final Diagnosis/Problem List - Final Discharge Diagnosis/Problem (1) Chronic pancreatitis Current Visit: No Status: Chronic Code(s): K86.1 - OTHER CHRONIC PANCREATITIS (2) Abdominal pain Current Visit: No Status: Resolved Onset Date: ~07/17/18 Assessment & Plan: much improved. Resume home meds wiht exception of morphine. Code(s): R10.9 - UNSPECIFIED ABDOMINAL PAIN (3) Chronic kidney disease (CKD) stage G3a/A1, moderately decreased glomerular filtration rate (GFR) between 45-59 mL/min/1.73 square meter and albuminuria creatinine ratio less than 30 mg/g Current Visit: No Status: Chronic Code(s): N18.3 - CHRONIC KIDNEY DISEASE, STAGE 3 (MODERATE) (4) Elevated LFTs Current Visit: Yes Status: Acute Code(s): R94.5 - ABNORMAL RESULTS OF LIVER FUNCTION STUDIES (5) Hypomagnesemia Current Visit: No Status: Acute Assessment & Plan: home after repleting mg today. Code(s): E83.42 - HYPOMAGNESEMIA - Discharge Disposition: Home, Self-Care Condition: Good Prescriptions: New Levofloxacin [Levofloxacin 500 MG Tablet] 500 mg PO DAILY #3 tablet Continue Pregabalin [Lyrica] 100 mg PO BID Diazepam 5 mg [Valium 5 MG] 10 mg PO BID Promethazine HCl 25 mg [Phenergan 25 mg] 25 mg PO QIDPRN PRN PRN Reason: Nausea Heparin Flush 500 units/5 ml [Heparin Lock Flush 100 Units/ml 5ml Syringe ] 500 units PORT FLUSH PRN PRN disp.syrin PRN Reason: Iv Port Flush Buspirone HCl 5 mg [Buspar 5 mg] 15 mg PO TID Metoclopramide HCl [Reglan] 10 mg PO DAILY Furosemide 40 mg [Lasix 40 MG] 40 mg PO DAILY PRN PRN PRN Reason: fluid retention Loperamide HCl 2 mg [Imodium 2 mg] 2 mg PO TID PRN Esomeprazole Magnesium [Nexium] 40 mg PO DAILY Spironolactone 25 mg [Aldactone 25 MG] 25 mg PO DAILY PRN PRN PRN Reason: water retention Sertraline HCl [Zoloft] 200 mg PO HS Brexpiprazole [Rexulti] 2 mg PO HS Solifenacin Succinate [Vesicare] 10 mg PO DAILY Mirabegron [Myrbetriq] 50 mg PO DAILY Iron,Carbonyl [Iron Chews] 25 mg PO DAILY Omeprazole 40 mg PO DAILY Melatonin 20 mg PO HS Vortioxetine Hydrobromide [Trintellix] 20 mg PO HS Albuterol Sulfate [Ventolin Hfa] 90 mcg IH Q4HPRN PRN PRN Reason: sob Discontinued Ondansetron ODT 4 MG [Zofran Odt 4 mg] 4 mg PO Q6H PRN PRN PRN Reason: Nausea Additional Instructions: Do NOT take zofran while taking levaquin. Follow up with: KHUSHBU REYNOSO [CONSULTING PHYSICIAN] - 04/26/19 3:40 pm (at [place]) JOSE ZAMORANO [Primary Care Provider] - 04/23/19 11:15 am CAIO MARTINEZ MD [NON-STAFF PHY W/O PRIVILEGES] - 05/07/19 9:45 am
[2019-04-16] MEDS ORDERED: Magnesium Sulfate 1 GM/2 ML VIAL IV ONE (15:30)
[2019-04-16] MEDS: Magnesium 1 Gm / 100 Ml D5W*** 100 ML IV SCH ×2 (15:53→16:29)
== END 2019-04-16 17:30 | disposition home or self-care (01) | DRG 439 ==
LOC: MED SURG 09:14 → OBSVTOIN 04-13 09:14
PROVIDERS: ADMIT Family Medicine; ATTEND Family Medicine
PROC: 0DJ08ZZ Inspection of Upper Intestinal Tract, Via Natural or Artificial Opening Endoscopic (ICD-10-PCS; principal; 2019-04-14)
DX: K86.1 Other chronic pancreatitis (principal); N39.0 Urinary tract infection, site not specified; N18.3 Chronic kidney disease, stage 3 (moderate); R94.5 Abnormal results of liver function studies; E83.42 Hypomagnesemia; Z79.899 Other long term (current) drug therapy; R10.13 Epigastric pain; R11.2 Nausea with vomiting, unspecified; R07.89 Other chest pain
CPT/HCPCS: 36415; 43235; 71045; 74018; 74176; 76705; 80053; 81001; 82150; 83690; 83735; 84484; 85025; 85027; 87077; 87086; 87186; 93005; 93268; 94150; 94640; 94762; G0378; J1956; J2270; J2405; J2704; J3475; J7609; A9270-GY

== ENCOUNTER 2019-05-10 21:25 | Emergency (ER) | payer MEDICARE ==
--- NOTE | 2019-05-10 21:29 | ERPHSYRPT ---
- History of Present Illness Time Seen by Provider: 05/10/19 21:29 Source: patient, family Exam Limitations: no limitations Physician History: 53 y/o white female presents with right knee pain and swelling after a fall. pt has norco 10 at home. pt denies head or neck injury. hurts to bear weight. Occurred: just prior to arrival Reason for Fall: lost balance, fell from standing pos Injuries/Pain Location: lower extremity (right ant knee) Loss of Consciousness: no loss of consciousness Quality: aching Severity of Pain-Max: moderate Severity of Pain-Current: moderate Modifying Factors: Improves With: movement, other (hurts to weight bear) Associated Symptoms (Fall): denies symptoms Allergies/Adverse Reactions: oxybutynin Allergy (Severe, Verified 04/27/19 07:48) pharyngeal swelling oxycodone [From Percocet] Allergy (Intermediate, Verified 04/27/19 07:48) Hives Pt. stated " Immediatly after taking it I felt like I was coming out of my skin." ampicillin Allergy (Mild, Verified 04/27/19 07:48) hives erythromycin base [Erythromycin Base] Allergy (Mild, Verified 04/27/19 07:48) Hives duloxetine HCl [From Cymbalta] Allergy (Unknown, Verified 04/27/19 07:48) Tightness of Throat Home Medications: Diazepam 5 mg [Valium 5 MG] 10 mg PO BID 12/24/16 [History] Pregabalin [Lyrica] 100 mg PO BID 12/24/16 [History] Promethazine HCl 25 mg [Phenergan 25 mg] 25 mg PO QIDPRN PRN 01/07/17 [ History] Buspirone HCl 5 mg [Buspar 5 mg] 15 mg PO TID 01/09/18 [History] Metoclopramide HCl [Reglan] 10 mg PO DAILY 03/05/18 [History] Furosemide 40 mg [Lasix 40 MG] 40 mg PO DAILY PRN PRN 04/06/18 [History] Loperamide HCl 2 mg [Imodium 2 mg] 2 mg PO TID PRN 08/05/18 [History] Esomeprazole Magnesium [Nexium] 40 mg PO DAILY 09/07/18 [History] Spironolactone 25 mg [Aldactone 25 MG] 25 mg PO DAILY PRN PRN 09/23/18 [ History] Sertraline HCl [Zoloft] 200 mg PO HS 11/06/18 [History] Brexpiprazole [Rexulti] 2 mg PO HS 12/11/18 [History] Solifenacin Succinate [Vesicare] 10 mg PO DAILY 01/05/19 [History] Mirabegron [Myrbetriq] 50 mg PO DAILY 02/26/19 [History] Iron,Carbonyl [Iron Chews] 25 mg PO DAILY 02/27/19 [History] Melatonin 20 mg PO HS 02/27/19 [History] Omeprazole 40 mg PO DAILY 02/27/19 [History] Albuterol Sulfate [Ventolin Hfa] 90 mcg IH Q4HPRN PRN 04/12/19 [History] Vortioxetine Hydrobromide [Trintellix] 20 mg PO HS 04/12/19 [History] Fentanyl 1 each TD DIRECTIONS UNKNOWN 04/27/19 [History] Hx Tetanus, Diphtheria Vaccination/Date Given: Yes Hx Influenza Vaccination/Date Given: Yes Hx Pneumococcal Vaccination/Date Given: Yes - Review of Systems Constitutional: No Symptoms Eyes: No Symptoms Ears, Nose, & Throat: No Symptoms Respiratory: No Symptoms Cardiac: No Symptoms Abdominal/Gastrointestinal: No Symptoms Genitourinary Symptoms: No Symptoms Musculoskeletal: Fall, Injury (right knee) Skin: No Symptoms Neurological: No Symptoms Psychological: No Symptoms Endocrine: No Symptoms Hematologic/Lymphatic: No Symptoms Immunological/Allergic: No Symptoms All Other Systems: Reviewed and Negative - Past Medical History Pertinent Past Medical History: Yes Neurological History: Peripheral Neuropathy ENT History: No Pertinent History Cardiac History: No Pertinent History Respiratory History: No Pertinent History Endocrine Medical History: Adrenal Insufficiency, Other Musculoskeletal History: Osteoarthritis GI Medical History: Crohns Disease, Pancreatitis, Other History: Renal Disease, Other Psycho-Social History: Anxiety, Depression Female Reproductive Disorders: Other Other Medical History: Pt had surgery for ahdesions in the gut and had complications. She has a colostomy and superpubic cather. Pt gets infusions with potassium and magnesium - Past Surgical History Past Surgical History: Yes (ileostomy, suprapubic catheter) Neuro Surgical History: No Pertinent History Cardiac: No Pertinent History Respiratory: No Pertinent History Gastrointestinal: Bowel Surgery, Cholecystectomy Genitourinary: Other Musculoskeletal: No Pertinent History Female Surgical History: Hysterectomy Other Surgical History: has 120 cm of small bowel, urostomy following compications after surgery to remove adhesions - Social History Smoking Status: Current every day smoker How long have you smoked: 20 years Exposure to second hand smoke: No Drug Use: none Patient Lives Alone: No - Nursing Vital Signs Nursing Vital Signs: Initial Vital Signs Temperature 98.2 F 05/10/19 21:40 Pulse Rate 95 H 05/10/19 21:40 Respiratory Rate 18 05/10/19 21:40 Blood Pressure 112/86 05/10/19 21:40 O2 Sat by Pulse Oximetry 98 05/10/19 21:40 Pain Scale Pain Intensity 9 - [place] Score Best Eye Response ([place]): (4) open spontaneously Best Verbal Response ([place]): (5) oriented Best Motor Response ([place]): (6) obeys commands [place] Total: 15 - Physical Exam General Appearance: no apparent distress, alert, anxiety Head Injury: no evidence of injury, No Chavez's Sign, No tenderness Eye Exam: PERRL/EOMI, eyes nml inspection ENT Exam: airway nml, nml ext.inspection Neck Exam: supple, trachea midline, full range of motion, normal alignment Respiratory/Chest Exam: No chest tenderness, No respiratory distress Gastrointestinal Exam: No tenderness Rectal Exam: not done Back Exam: normal inspection, normal range of motion, No CVA tenderness, No vertebral tenderness Extremity Exam: normal range of motion, pelvis stable, pain with movement, weight bearing, swelling (mild swelling right ant knee), tenderness (right ant knee) Neurologic Exam: alert, oriented x 3, cooperative, surveyor geophysical prospecting II-XII nml as tested, normal mood/affect, nml cerebellar function, nml station & gait Skin Exam: normal color, warm, dry Ordered Tests: Active Orders 24 hr Category Date Time Status KNEE (3 VIEWS) Stat Exams 05/10/19 22:58 Taken - Progress Progress: pain not gone completely, re-examined Progress Note: 05/11/19 00:04 xray right knee-no acute fx or dislocation 05/11/19 00:07 pt is sleepy, she is due to change her fentanyl patch and pt is on norco 10 at home. i will not be providing any narcotics here. Counseled pt/family regarding: diagnosis, need for follow-up, rad results - Departure Departure Disposition: Home Clinical Impression: Contusion of right knee Condition: Stable Critical Care Time: No Referrals: JOSE ZAMORANO [Primary Care Provider] - Additional Instructions: ice pack to site 3 times a day for 3 days. follow up with primary doctor for further management if pain persists.
[2019-05-10 21:51] VITALS: PULSE 95
[2019-05-10 23:07] VITALS: BP 121/72; O2SAT 92
--- NOTE | 2019-05-11 09:38 | XRAY ---
Indication: Pain following fall. Comparison: None 3 views of the right knee obtained. No bony, articular, or soft tissue abnormalities.
== END 2019-05-11 00:27 | disposition home or self-care (01) ==
LOC: ED 21:25
DX: S80.01XA Contusion of right knee, initial encounter (principal); W19.XXXA Unspecified fall, initial encounter
CPT/HCPCS: 73562; 99283

== ENCOUNTER 2019-06-21 08:40 | Inpatient (IN) | payer MEDICARE ==
[2019-06-21] MEDS ORDERED: MORPHINE SULFATE 10 MG/ML IV PRN (13:31)
[2019-06-21] MEDS ORDERED: Sodium Chloride 0.9% 1000 ML 1,000 ML IV SCH (14:00)
[2019-06-21 14:04] LABS: Lactic Acid 2.2 (0.4-2.0)
[2019-06-21 14:07] LABS: Absolute Neutrophil Ct (ANC) 5.56 (1.4-6.9); BASOPHIL % 0.9 % (0.0-0.4); Basophil (Absolute #) 0.08 (0-0.4); Eosinophil % 3.9 % (0.00-5.0); Eosinophil (Absolute #) 0.34 (0-0.5); Hematocrit 42.3 % (35-47); Hemoglobin 14.3 gm/dl (12.0-16.0); Lymphocyte (Absolute #) 2.16 (1.0-4.6); Lymphocytes % 24.7 % (24.0-44.0); Mean Cell Volume 91.2 fl (78-100); Mean Corpuscular Hemoglobin 30.8 pg (26-32); Mean Corpuscular Hgb Concent. 33.8 g/dl (32-36); Mean Platelet Volume 9.7 fl (6-9.5); Monocyte (Absolute #) 0.59 (0.0-1.3); Monocytes % 6.8 % (0.0-12.0); Neutrophil % 63.7 % (36.0-66.0); Platelet Count 294 K/mm3 (150-450); Red Blood Count 4.64 M/mm3 (4.1-5.4); Red Cell Distribution Width 14.4 % (11.5-14.0); White Blood Count 8.7 K/mm3 (4.0-10.5)
[2019-06-21 14:15] LABS: ALBUMIN 4.8 g/dL (3.5-5.0); ANION GAP 16.9 MEQ/L (5-15); BILIRUBIN,TOTAL 0.6 mg/dL (0.2-1.3); Calcium 9.5 mg/dL (8.4-10.2); Creatinine 1 1.26 mg/dL (0.52-1.04); Potassium 3.9 mmol/L (3.5-5.1); Total Protein 8.5 g/dL (6.3-8.2)
[2019-06-21] MEDS: Phenergan 25 MG INJ IV PRN ×2 (14:42→23:15)
--- NOTE | 2019-06-21 14:52 | XRAY ---
Indication: Pain, nausea, and intestinal problems. Comparison: April 12, 2019. KUB again nonacute and nonobstructed with cholecystectomy clips, right lower quadrant colostomy, and suprapubic catheter. Solid organs and osseous structures unremarkable. Impression: Stable negative KUB with postsurgical changes.
[2019-06-21] MEDS: Sodium Chloride 0.9% 1000 ML 1,000 ML IV SCH ×2 (14:57→23:23)
[2019-06-21] MEDS ORDERED: Ventolin Hfa MDI IH PRN (15:19)
[2019-06-21] MEDS ORDERED: PHENERGAN 25 MG PO PRN (15:19)
[2019-06-21] MEDS ORDERED: IMODIUM 2 MG PO PRN (15:30)
[2019-06-21] MEDS ORDERED: PROVENTIL COMMON CANISTER IH PRN (15:31)
[2019-06-21] MEDS ORDERED: MEDICATION INTERVENTION PO SCH ×3 (15:45)
[2019-06-21] MEDS: BUSPAR 5 MG PO SCH ×2 (16:25→20:50)
[2019-06-21] MEDS: MORPHINE SULFATE 10 MG/ML IV PRN ×4 (16:25→23:20)
[2019-06-21 16:53] LABS: Appearance CLOUDY (CLEAR); Bacteria MODERATE /HPF (NEGATIVE); Bilirubin NEGATIVE (NEGATIVE); Blood MODERATE Ery/ul (0-5); Glucose NEGATIVE (NEGATIVE); Ketones NEGATIVE (NEGATIVE); Leukocyte Esterase LARGE (NEGATIVE); Mucus SLIGHT /HPF (NEGATIVE); Nitrite POSITIVE (NEGATIVE); Protein,Urine Dip NEGATIVE (Negative); Specific Gravity 1.006 (1.005-1.025); Urobilinogen NEGATIVE mg/dL (0-1); WBC 51-100 /HPF (0-5)
[2019-06-21] MEDS: PATIENT OWN MEDICATION PO SCH ×5 (18:55→23:20)
--- NOTE | 2019-06-21 20:17 | PCM.HP ---
History of Present Illness - Chief Complaint Chief Complaint: Abdominal pain, chonic pancreatitis, Chronic renal failure History of Present Illness: is a 54 year old female pt of mine from [facility] with hx Crohn's disease ( with ileostomy), suprapubic catheter, chronic renal failure, and chronic pancreatitis who contacted me today c/o worsening abdominal pain. She was admitted diretly to the hospital for IV fluids and further workup. She was found to have an elevated amylase and mildly elevated lactate. Her WBC were nl. She was put on CLD, given IVF and given IV morphine q2h prn. Her pain was 9/10 at home but is now 6/10 here. Nine days ago she started having increased LLQ pain that moved to the epigastrum. Had some vomiting. no fevers. - Review of Systems Abdominal/Gastrointestinal: Abdominal Pain, Nausea, Vomiting, Appetite Changes Psychological: No Anxiety, No Depression, No Suicidal Ideations All Other Systems: Reviewed and Negative Medications & Allergies Home Medications: Home Medication List Diazepam 5 mg [Valium 5 MG] 10 mg PO BID 12/24/16 [History Confirmed 06/21] Pregabalin [Lyrica] 100 mg PO BID 12/24/16 [History Confirmed 06/21/19] Promethazine HCl 25 mg [Phenergan 25 mg] 25 mg PO QIDPRN PRN 01/07/17 [ History Confirmed 06/21/19] Heparin Flush 500 units/5 ml [Heparin Lock Flush 100 Units/ml 5ml Syringe] 500 units PORT FLUSH PRN PRN disp.syrin 08/10/17 [Rx Confirmed 06/21/19] Buspirone HCl 5 mg [Buspar 5 mg] 15 mg PO TID 01/09/18 [History Confirmed 06/21/19] Metoclopramide HCl [Reglan] 10 mg PO DAILY 03/05/18 [History Confirmed 06/21/19] Furosemide 40 mg [Lasix 40 MG] 40 mg PO DAILY PRN PRN 04/06/18 [History Confirmed 06/21/19] Loperamide HCl 2 mg [Imodium 2 mg] 2 mg PO TID PRN 08/05/18 [History Confirmed 06/21/19] Esomeprazole Magnesium [Nexium] 40 mg PO DAILY 09/07/18 [History Confirmed 06/21] Spironolactone 25 mg [Aldactone 25 MG] 25 mg PO DAILY PRN PRN 09/23/18 [ History Confirmed 06/21/19] Sertraline HCl [Zoloft] 200 mg PO HS 11/06/18 [History Confirmed 06/21/19] Brexpiprazole [Rexulti] 2 mg PO HS 12/11/18 [History Confirmed 06/21/19] Solifenacin Succinate [Vesicare] 10 mg PO DAILY 01/05/19 [History Confirmed ] Mirabegron [Myrbetriq] 50 mg PO DAILY 02/26/19 [History Confirmed 06/21/19] Iron,Carbonyl [Iron Chews] 25 mg PO DAILY 02/27/19 [History Confirmed 06/21/19] Melatonin 20 mg PO HS 02/27/19 [History Confirmed 06/21/19] Omeprazole 40 mg PO DAILY 02/27/19 [History Confirmed 06/21/19] Albuterol Sulfate [Ventolin Hfa] 90 mcg IH Q4HPRN PRN 04/12/19 [History Confirmed 06/21/19] Vortioxetine Hydrobromide [Trintellix] 20 mg PO HS 04/12/19 [History Confirmed 06/21/19] Fentanyl 1 each TD DIRECTIONS UNKNOWN 04/27/19 [History Confirmed 06/21/19] Hydrocodone Bit/Acetaminophen [[place] 10-325 Tablet] 1 tab PO QID PRN PRN [History Confirmed 06/21/19] Lipase/Protease/Amylase [[address]ce[address] Dr 24,000 Units Capsule] 2 tab PO TID 06/21/19 [ History Confirmed 06/21/19] Allergies/Adverse Reactions: Allergies Allergy/AdvReac Type Severity Reaction Status Date / Time oxybutynin Allergy Severe Verified 06/04/19 07:59 oxycodone [From Percocet] Allergy Intermediate Hives Verified 06/04/19 07:59 ampicillin Allergy Mild Verified 06/04/19 07:59 erythromycin base Allergy Mild Verified 06/04/19 07:59 [Erythromycin Base] duloxetine HCl Allergy Unknown Tightness Verified 06/04/19 07:59 [From [facility]] of Throat - Past Medical History Past Medical History: Yes Neurological History: Peripheral Neuropathy ENT History: No Pertinent History Cardiac History: No Pertinent History Respiratory History: No Pertinent History Endocrine Medical History: Adrenal Insufficiency, Other Musculoskelatal History: Osteoarthritis GI Medical History: Crohns Disease, Pancreatitis, Other History: Renal Disease, Other Pyscho-Social History: Anxiety, Depression Reproductive Disorders: Other Comment: Pt had surgery for ahdesions in the gut and had complications. She has a colostomy and superpubic cather. Pt gets infusions with potassium and magnesium - Past Surgical History Past Surgical History: Yes (ileostomy, suprapubic catheter) Neuro Surgical History: No Pertinent History Cardiac History: No Pertinent History Respiratory Surgery: No Pertinent History GI Surgical History: Bowel Surgery, Cholecystectomy Genitourinary Surgical Hx: Other Musculskeletal Surgical Hx: No Pertinent History Female Surgical History: Hysterectomy Other Surgical History: has 120 cm of small bowel, urostomy following compications after surgery to remove adhesions - Social History Smoking Status: Never smoker How long have you smoked: 20 years Exposure to second hand smoke: No Alcohol: None Drug Use: none - Physical Exam Vital Signs: Vital Signs - 24 hr Temp Pulse Resp BP Pulse Ox 06/21/19 19:35 97.8 F 76 16 112/61 91 L 06/21/19 19:01 80 16 94 L 06/21/19 17:35 98.6 F 90 16 102/59 94 L 06/21/19 16:18 100 H 16 95 06/21/19 13:50 98.6 F 102 H 20 133/83 94 L 06/21/19 13:35 98.6 F 102 H 20 133/83 94 L General Appearance: mild distress, alert Neurologic Exam: oriented x 3, cooperative Eye Exam: eyes nml inspection Ears, Nose, Throat Exam: moist mucous membranes Neck Exam: normal inspection Respiratory Exam: normal breath sounds, lungs clear, No crackles/rales, No rhonchi, No wheezing Cardiovascular Exam: regular rate/rhythm, normal heart sounds, No murmur Gastrointestinal/Abdomen Exam: soft, tenderness (throughout, but worse in LLQ and epigastrum) Extremity Exam: No pedal edema, No swelling Skin Exam: normal color, warm, dry, No rash Results - Labs Lab/Micro Results: Lab Results-Last 24 Hours 06/21/19 06/21/19 06/21/19 Range/Units 13:58 13:58 13:59 WBC 8.7 (4.0-10.5) K/mm3 RBC 4.64 (4.1-5.4) M/mm3 Hgb 14.3 (12.0-16.0) gm/dl Hct 42.3 (35-47) % MCV 91.2 (78-100) fl MCH 30.8 (26-32) pg MCHC 33.8 (32-36) g/dl RDW 14.4 H (11.5-14.0) % Plt Count 294 (150-450) K/mm3 MPV 9.7 H (6-9.5) fl Gran % 63.7 (36.0-66.0) % Eos # (Auto) 0.34 (0-0.5) Absolute Lymphs (auto) 2.16 (1.0-4.6) Absolute Monos (auto) 0.59 (0.0-1.3) Lymphocytes % 24.7 (24.0-44.0) % Monocytes % 6.8 (0.0-12.0) % Eosinophils % 3.9 (0.00-5.0) % Basophils % 0.9 (0.0-0.4) % Absolute Granulocytes 5.56 (1.4-6.9) Basophils # 0.08 (0-0.4) Sodium 137 (137-145) mmol/L Potassium 3.9 (3.5-5.1) mmol/L Chloride 94 L (98-107) mmol/L Carbon Dioxide 30 (22-30) mmol/L Anion Gap 16.9 H (5-15) MEQ/L BUN 19 H (7-17) mg/dL Creatinine 1.26 H (0.52-1.04) mg/dL Estimated GFR 47.0 ML/MIN Glucose 100 (74-106) mg/dL Lactic Acid 2.2 H (0.4-2.0) Calcium 9.5 (8.4-10.2) mg/dL Total Bilirubin 0.60 (0.2-1.3) mg/dL AST 35 (14-36) U/L ALT 39 H (0-35) U/L Alkaline Phosphatase 143 H (38-126) U/L Serum Total Protein 8.5 H (6.3-8.2) g/dL Albumin 4.8 (3.5-5.0) g/dL Amylase 140 H (30-110) U/L Lipase 699 H (23-300) U/L Urine Color (YELLOW) Urine Appearance (CLEAR) Urine pH (5-6) Ur Specific [place] (1.005-1.025) Urine Protein (Negative) Urine Ketones (NEGATIVE) Urine Blood (0-5) Gregg/ul Urine Nitrite (NEGATIVE) Urine Bilirubin (NEGATIVE) Urine Urobilinogen (0-1) mg/dL Ur Leukocyte Esterase (NEGATIVE) Urine WBC (Auto) (0-5) /HPF Urine RBC (Auto) (0-2) /HPF U Epithel Cells (Auto) (FEW) /HPF Urine Bacteria (Auto) (NEGATIVE) /HPF Urine Mucus (Auto) (NEGATIVE) /HPF Urine Culture Reflexed (NO) Urine Glucose (NEGATIVE) mg/dL 06/21/19 06/21/19 Range/Units 16:35 16:48 WBC (4.0-10.5) K/mm3 RBC (4.1-5.4) M/mm3 Hgb (12.0-16.0) gm/dl Hct (35-47) % MCV (78-100) fl MCH (26-32) pg MCHC (32-36) g/dl RDW (11.5-14.0) % Plt Count (150-450) K/mm3 MPV (6-9.5) fl Gran % (36.0-66.0) % Eos # (Auto) (0-0.5) Absolute Lymphs (auto) (1.0-4.6) Absolute Monos (auto) (0.0-1.3) Lymphocytes % (24.0-44.0) % Monocytes % (0.0-12.0) % Eosinophils % (0.00-5.0) % Basophils % (0.0-0.4) % Absolute Granulocytes (1.4-6.9) Basophils # (0-0.4) Sodium (137-145) mmol/L Potassium (3.5-5.1) mmol/L Chloride (98-107) mmol/L Carbon Dioxide (22-30) mmol/L Anion Gap (5-15) MEQ/L BUN (7-17) mg/dL Creatinine (0.52-1.04) mg/dL Estimated GFR ML/MIN Glucose (74-106) mg/dL Lactic Acid 1.7 (0.4-2.0) Calcium (8.4-10.2) mg/dL Total Bilirubin (0.2-1.3) mg/dL AST (14-36) U/L ALT (0-35) U/L Alkaline Phosphatase (38-126) U/L Serum Total Protein (6.3-8.2) g/dL Albumin (3.5-5.0) g/dL Amylase (30-110) U/L Lipase (23-300) U/L Urine Color YELLOW (YELLOW) Urine Appearance CLOUDY (CLEAR) Urine pH 7.0 (5-6) Ur Specific [place] 1.006 (1.005-1.025) Urine Protein NEGATIVE (Negative) Urine Ketones NEGATIVE (NEGATIVE) Urine Blood MODERATE (0-5) Gregg/ul Urine Nitrite POSITIVE (NEGATIVE) Urine Bilirubin NEGATIVE (NEGATIVE) Urine Urobilinogen NEGATIVE (0-1) mg/dL Ur Leukocyte Esterase LARGE (NEGATIVE) Urine WBC (Auto) 51-100 (0-5) /HPF Urine RBC (Auto) NONE (0-2) /HPF U Epithel Cells (Auto) NONE (FEW) /HPF Urine Bacteria (Auto) MODERATE (NEGATIVE) /HPF Urine Mucus (Auto) SLIGHT (NEGATIVE) /HPF Urine Culture Reflexed ORDERED SEPARATELY (NO) Urine Glucose NEGATIVE (NEGATIVE) mg/dL - Radiology Impressions Radiology Exams & Impressions: Radiology Procedures Category Date Time Status KUB Routine Exams 06/21/19 13:45 Completed - Other Procedures and Tests Respiratory Therapy 06/22/19 07:00 Respiratory Therapy Assessment DAILY Assessment/Plan (1) Pancreatitis Current Visit: No Status: Resolved Qualifiers: Chronicity: acute Pancreatitis type: idiopathic Acute pancreatitis complication: no infection or necrosis Qualified Code(s): K85.00 - Idiopathic acute pancreatitis without necrosis or infection Assessment & Plan: recheck labs in a.m, IV fluids, CLD. Code(s): K85.90 - ACUTE PANCREATITIS WITHOUT NECROSIS OR INFECTION, UNSP (2) UTI (urinary tract infection) Current Visit: No Status: Acute Qualifiers: Urinary tract infection type: acute cystitis Hematuria presence: without hematuria Qualified Code(s): N30.00 - Acute cystitis without hematuria Assessment & Plan: I think most of her pain is due to the pancreatitis; but will start pt on IV rocephin. Code(s): N39.0 - URINARY TRACT INFECTION, SITE NOT SPECIFIED (3) Chronic kidney disease (CKD) stage G3a/A1, moderately decreased glomerular filtration rate (GFR) between 45-59 mL/min/1.73 square meter and albuminuria creatinine ratio less than 30 mg/g Current Visit: No Status: Chronic Assessment & Plan: will just monitor. Code(s): N18.3 - CHRONIC KIDNEY DISEASE, STAGE 3 (MODERATE) (4) Short bowel syndrome Current Visit: No Status: Chronic Code(s): K91.2 - POSTSURGICAL MALABSORPTION, NOT ELSEWHERE CLASSIFIED (5) Suprapubic catheter Current Visit: No Status: Chronic Code(s): Z93.59 - OTHER CYSTOSTOMY STATUS (6) Abdominal pain Current Visit: No Status: Resolved Onset Date: ~07/17/18 Qualifiers: Abdominal location: epigastric Qualified Code(s): R10.13 - Epigastric pain Assessment & Plan: I think just due to pancreatitis. Code(s): R10.9 - UNSPECIFIED ABDOMINAL PAIN (7) Elevated LFTs Current Visit: No Status: Acute Assessment & Plan: has been chronic. Code(s): R94.5 - ABNORMAL RESULTS OF LIVER FUNCTION STUDIES
[2019-06-21] MEDS ORDERED: ROCEPHIN 1 Gm-D5w 50 ml Bag** 1 G/50 ML IVPB IV SCH (20:30)
[2019-06-21] MEDS: Valium 5 MG PO SCH (20:49)
[2019-06-21] MEDS: LYRICA 100MG PO SCH (20:49)
[2019-06-21] MEDS: ZOLOFT 50 MG TABLET PO SCH (20:50)
[2019-06-21] MEDS ORDERED: BREXPIPRAZOLE 2 MG PO SCH (22:00)
[2019-06-21] MEDS ORDERED: NON-FORMULARY ITEM (Sertraline Hcl [Zoloft] 200 MG) PO SCH (22:00)
[2019-06-21] MEDS ORDERED: VORTIOXETINE HYDROBROMIDE 20 MG PO SCH (22:00)
[2019-06-21] MEDS ORDERED: AMYLASE PO SCH (22:00)
[2019-06-21] MEDS ORDERED: MELATONIN 20 MG PO SCH (22:00)
[2019-06-21] MEDS ORDERED: LIPASE PO SCH (22:00)
[2019-06-21] MEDS ORDERED: PROTEASE PO SCH (22:00)
[2019-06-22] MEDS: MORPHINE SULFATE 10 MG/ML IV PRN ×7 (03:35→20:44)
[2019-06-22 05:11] LABS: Hematocrit 36.1 % (35-47); Hemoglobin 11.6 gm/dl (12.0-16.0); Mean Corpuscular Hgb Concent. 32.1 g/dl (32-36); Mean Platelet Volume 9.7 fl (6-9.5); Platelet Count 262 K/mm3 (150-450); Red Blood Count 3.76 M/mm3 (4.1-5.4); Red Cell Distribution Width 14.7 % (11.5-14.0); White Blood Count 5.6 K/mm3 (4.0-10.5)
[2019-06-22 05:16] LABS: ALBUMIN 3.6 g/dL (3.5-5.0); ALKALINE PHOSPHATASE 104 U/L (38-126); AMYLASE 100 U/L (30-110); ANION GAP 10.3 MEQ/L (5-15); BLOOD UREA NITROGEN 14 mg/dL (7-17); CHLORIDE 109 mmol/L (98-107); Calcium 8.5 mg/dL (8.4-10.2); Carbon Dioxide 24 mmol/L (22-30); Creatinine 1 0.93 mg/dL (0.52-1.04); Glucose 86 mg/dL (74-106); LIPASE 316 U/L (23-300); Potassium 5.3 mmol/L (3.5-5.1); SGOT/AST 27 U/L (14-36); SGPT/ALT 26 U/L (0-35); SODIUM 138 mmol/L (137-145); Total Protein 6.6 g/dL (6.3-8.2)
[2019-06-22 05:24] LABS: Mean Corpuscular Hemoglobin 30.8 pg (26-32)
[2019-06-22] MEDS ORDERED: PATIENT OWN MEDICATION IH SCH (07:00)
[2019-06-22] MEDS: PATIENT OWN MEDICATION PO SCH ×5 (08:13→20:49)
[2019-06-22] MEDS ORDERED: PROVENTIL 2.5 MG/3 ML NEB IH PRN (08:39)
--- NOTE | 2019-06-22 08:43 | PCM.NOTE ---
Date and Time: 06/22/19 0840 Subjective Assessment: Pt had a good night, she is however c/o 9/10 epigastric pain this morning radiating a burning pain into her substernal area. Objective Exam General Appearance: no apparent distress, alert Neurologic Exam: oriented x 3, cooperative Skin Exam: normal color, warm, dry, No rash Neck Exam: normal inspection Respiratory Exam: normal breath sounds, wheezing (faint, scattered), No crackles /rales, No rhonchi Cardiovascular Exam: regular rate/rhythm, normal heart sounds, No murmur Gastrointestinal/Abdomen Exam: soft, normal bowel sounds, tenderness (diffuse, but worse in epigastrum), distention (mild in epigastrum), No mass, No rebound Extremity Exam: normal inspection, No pedal edema, No swelling Back Exam: normal inspection, No rash OBJECTIVE DATA Vital Signs: Vital Signs - 24 hr Temp Pulse Resp BP Pulse Ox 06/22/19 08:36 68 20 95 06/22/19 07:06 97.7 F 68 18 95/56 96 06/22/19 04:00 97.6 F 73 16 100/50 93 L 06/22/19 00:00 97.5 F 61 18 92/51 93 L 06/21/19 19:35 97.8 F 76 16 112/61 91 L 06/21/19 19:01 80 16 94 L 06/21/19 17:35 98.6 F 90 16 102/59 94 L 06/21/19 16:18 100 H 16 95 06/21/19 13:50 98.6 F 102 H 20 133/83 94 L 06/21/19 13:35 98.6 F 102 H 20 133/83 94 L Pain Assessment - Last Documented Pain Intensity 9 Pain Scale Used [facility] Intake and Output: Intake & Output 06/19/19 06/20/19 06/21/19 06/22/19 11:59 11:59 11:59 11:59 Intake Total 3932 Output Total 2750 Balance 1182 Weight 37.7 kg Lab Results: Lab Results-Last 24 Hours 06/21/19 06/21/19 06/21/19 Range/Units 13:58 13:58 13:59 WBC 8.7 (4.0-10.5) K/mm3 RBC 4.64 (4.1-5.4) M/mm3 Hgb 14.3 (12.0-16.0) gm/dl Hct 42.3 (35-47) % MCV 91.2 (78-100) fl MCH 30.8 (26-32) pg MCHC 33.8 (32-36) g/dl RDW 14.4 H (11.5-14.0) % Plt Count 294 (150-450) K/mm3 MPV 9.7 H (6-9.5) fl Gran % 63.7 (36.0-66.0) % Eos # (Auto) 0.34 (0-0.5) Absolute Lymphs (auto) 2.16 (1.0-4.6) Absolute Monos (auto) 0.59 (0.0-1.3) Lymphocytes % 24.7 (24.0-44.0) % Monocytes % 6.8 (0.0-12.0) % Eosinophils % 3.9 (0.00-5.0) % Basophils % 0.9 (0.0-0.4) % Absolute Granulocytes 5.56 (1.4-6.9) Basophils # 0.08 (0-0.4) Sodium 137 (137-145) mmol/L Potassium 3.9 (3.5-5.1) mmol/L Chloride 94 L (98-107) mmol/L Carbon Dioxide 30 (22-30) mmol/L Anion Gap 16.9 H (5-15) MEQ/L BUN 19 H (7-17) mg/dL Creatinine 1.26 H (0.52-1.04) mg/dL Estimated GFR 47.0 ML/MIN Glucose 100 (74-106) mg/dL Lactic Acid 2.2 H (0.4-2.0) Calcium 9.5 (8.4-10.2) mg/dL Total Bilirubin 0.60 (0.2-1.3) mg/dL AST 35 (14-36) U/L ALT 39 H (0-35) U/L Alkaline Phosphatase 143 H (38-126) U/L Serum Total Protein 8.5 H (6.3-8.2) g/dL Albumin 4.8 (3.5-5.0) g/dL Amylase 140 H (30-110) U/L Lipase 699 H (23-300) U/L Urine Color (YELLOW) Urine Appearance (CLEAR) Urine pH (5-6) Ur Specific [place] (1.005-1.025) Urine Protein (Negative) Urine Ketones (NEGATIVE) Urine Blood (0-5) Gregg/ul Urine Nitrite (NEGATIVE) Urine Bilirubin (NEGATIVE) Urine Urobilinogen (0-1) mg/dL Ur Leukocyte Esterase (NEGATIVE) Urine WBC (Auto) (0-5) /HPF Urine RBC (Auto) (0-2) /HPF U Epithel Cells (Auto) (FEW) /HPF Urine Bacteria (Auto) (NEGATIVE) /HPF Urine Mucus (Auto) (NEGATIVE) /HPF Urine Culture Reflexed (NO) Urine Glucose (NEGATIVE) mg/dL 06/21/19 06/21/19 06/22/19 Range/Units 16:35 16:48 04:40 WBC 5.6 (4.0-10.5) K/mm3 RBC 3.76 L (4.1-5.4) M/mm3 Hgb 11.6 L (12.0-16.0) gm/dl Hct 36.1 (35-47) % MCV 96.0 (78-100) fl MCH 30.8 (26-32) pg MCHC 32.1 (32-36) g/dl RDW 14.7 H (11.5-14.0) % Plt Count 262 (150-450) K/mm3 MPV 9.7 H (6-9.5) fl Gran % (36.0-66.0) % Eos # (Auto) (0-0.5) Absolute Lymphs (auto) (1.0-4.6) Absolute Monos (auto) (0.0-1.3) Lymphocytes % (24.0-44.0) % Monocytes % (0.0-12.0) % Eosinophils % (0.00-5.0) % Basophils % (0.0-0.4) % Absolute Granulocytes (1.4-6.9) Basophils # (0-0.4) Sodium (137-145) mmol/L Potassium (3.5-5.1) mmol/L Chloride (98-107) mmol/L Carbon Dioxide (22-30) mmol/L Anion Gap (5-15) MEQ/L BUN (7-17) mg/dL Creatinine (0.52-1.04) mg/dL Estimated GFR ML/MIN Glucose (74-106) mg/dL Lactic Acid 1.7 (0.4-2.0) Calcium (8.4-10.2) mg/dL Total Bilirubin (0.2-1.3) mg/dL AST (14-36) U/L ALT (0-35) U/L Alkaline Phosphatase (38-126) U/L Serum Total Protein (6.3-8.2) g/dL Albumin (3.5-5.0) g/dL Amylase (30-110) U/L Lipase (23-300) U/L Urine Color YELLOW (YELLOW) Urine Appearance CLOUDY (CLEAR) Urine pH 7.0 (5-6) Ur Specific [place] 1.006 (1.005-1.025) Urine Protein NEGATIVE (Negative) Urine Ketones NEGATIVE (NEGATIVE) Urine Blood MODERATE (0-5) Gregg/ul Urine Nitrite POSITIVE (NEGATIVE) Urine Bilirubin NEGATIVE (NEGATIVE) Urine Urobilinogen NEGATIVE (0-1) mg/dL Ur Leukocyte Esterase LARGE (NEGATIVE) Urine WBC (Auto) 51-100 (0-5) /HPF Urine RBC (Auto) NONE (0-2) /HPF U Epithel Cells (Auto) NONE (FEW) /HPF Urine Bacteria (Auto) MODERATE (NEGATIVE) /HPF Urine Mucus (Auto) SLIGHT (NEGATIVE) /HPF Urine Culture Reflexed ORDERED SEPARATELY (NO) Urine Glucose NEGATIVE (NEGATIVE) mg/dL 06/22/19 Range/Units 04:40 WBC (4.0-10.5) K/mm3 RBC (4.1-5.4) M/mm3 Hgb (12.0-16.0) gm/dl Hct (35-47) % MCV (78-100) fl MCH (26-32) pg MCHC (32-36) g/dl RDW (11.5-14.0) % Plt Count (150-450) K/mm3 MPV (6-9.5) fl Gran % (36.0-66.0) % Eos # (Auto) (0-0.5) Absolute Lymphs (auto) (1.0-4.6) Absolute Monos (auto) (0.0-1.3) Lymphocytes % (24.0-44.0) % Monocytes % (0.0-12.0) % Eosinophils % (0.00-5.0) % Basophils % (0.0-0.4) % Absolute Granulocytes (1.4-6.9) Basophils # (0-0.4) Sodium 138 (137-145) mmol/L Potassium 5.3 H D (3.5-5.1) mmol/L Chloride 109 H D (98-107) mmol/L Carbon Dioxide 24 (22-30) mmol/L Anion Gap 10.3 (5-15) MEQ/L BUN 14 (7-17) mg/dL Creatinine 0.93 (0.52-1.04) mg/dL Estimated GFR > 60.0 ML/MIN Glucose 86 (74-106) mg/dL Lactic Acid (0.4-2.0) Calcium 8.5 (8.4-10.2) mg/dL Total Bilirubin 0.30 (0.2-1.3) mg/dL AST 27 (14-36) U/L ALT 26 (0-35) U/L Alkaline Phosphatase 104 (38-126) U/L Serum Total Protein 6.6 (6.3-8.2) g/dL Albumin 3.6 (3.5-5.0) g/dL Amylase 100 (30-110) U/L Lipase 316 H (23-300) U/L Urine Color (YELLOW) Urine Appearance (CLEAR) Urine pH (5-6) Ur Specific [place] (1.005-1.025) Urine Protein (Negative) Urine Ketones (NEGATIVE) Urine Blood (0-5) Gregg/ul Urine Nitrite (NEGATIVE) Urine Bilirubin (NEGATIVE) Urine Urobilinogen (0-1) mg/dL Ur Leukocyte Esterase (NEGATIVE) Urine WBC (Auto) (0-5) /HPF Urine RBC (Auto) (0-2) /HPF U Epithel Cells (Auto) (FEW) /HPF Urine Bacteria (Auto) (NEGATIVE) /HPF Urine Mucus (Auto) (NEGATIVE) /HPF Urine Culture Reflexed (NO) Urine Glucose (NEGATIVE) mg/dL Radiology Exams: Radiology Procedures Category Date Time Status KUB Routine Exams 06/21/19 13:45 Completed Multi-Disciplinary Progress Notes: Multi-Disciplinary Progress Notes 06/21/19 16:50 Respiratory Note by Delicia Kruse PT FAMILY TO BRING HOME FLOVENT INHALER TOMORROW MORNING. Initialized on 06/21/19 16:50 - END OF NOTE Assessment/Plan (1) Pancreatitis Current Visit: No Status: Acute Qualifiers: Chronicity: acute Pancreatitis type: idiopathic Acute pancreatitis complication: no infection or necrosis Qualified Code(s): K85.00 - Idiopathic acute pancreatitis without necrosis or infection Assessment & Plan: Improved, lipase down to 316 this morning Code(s): K85.90 - ACUTE PANCREATITIS WITHOUT NECROSIS OR INFECTION, UNSP (2) UTI (urinary tract infection) Current Visit: No Status: Acute Qualifiers: Urinary tract infection type: acute cystitis Hematuria presence: without hematuria Qualified Code(s): N30.00 - Acute cystitis without hematuria Assessment & Plan: on rocephin day #2 Code(s): N39.0 - URINARY TRACT INFECTION, SITE NOT SPECIFIED (3) Chronic kidney disease (CKD) stage G3a/A1, moderately decreased glomerular filtration rate (GFR) between 45-59 mL/min/1.73 square meter and albuminuria creatinine ratio less than 30 mg/g Current Visit: No Status: Chronic Assessment & Plan: eGFR >60 this morning with her IV fluids. Code(s): N18.3 - CHRONIC KIDNEY DISEASE, STAGE 3 (MODERATE) (4) Short bowel syndrome Current Visit: No Status: Chronic Code(s): K91.2 - POSTSURGICAL MALABSORPTION, NOT ELSEWHERE CLASSIFIED (5) Suprapubic catheter Current Visit: No Status: Chronic Code(s): Z93.59 - OTHER CYSTOSTOMY STATUS (6) Abdominal pain Current Visit: No Status: Acute Onset Date: ~07/17/18 Qualifiers: Abdominal location: epigastric Qualified Code(s): R10.13 - Epigastric pain Code(s): R10.9 - UNSPECIFIED ABDOMINAL PAIN (7) Elevated LFTs Current Visit: No Status: Chronic Code(s): R94.5 - ABNORMAL RESULTS OF LIVER FUNCTION STUDIES
[2019-06-22] MEDS ORDERED: NON-FORMULARY ITEM (Solifenacin Succinate [Vesicare] 10 MG) PO SCH (10:00)
[2019-06-22] MEDS ORDERED: NON-FORMULARY ITEM (Esomeprazole Magnesium [Nexium] 40 MG) PO SCH (10:00)
[2019-06-22] MEDS ORDERED: NON-FORMULARY ITEM (Omeprazole [Omeprazole] 40 MG) PO SCH (10:00)
[2019-06-22] MEDS: ENOXAPARIN SODIUM SQ SCH (10:10)
[2019-06-22] MEDS: BUSPAR 5 MG PO SCH ×3 (10:11→20:47)
[2019-06-22] MEDS: Valium 5 MG PO SCH ×2 (10:12→21:18)
[2019-06-22] MEDS: LYRICA 100MG PO SCH ×2 (10:13→21:16)
[2019-06-22] MEDS: Phenergan 25 MG INJ IV PRN ×2 (10:13→17:25)
[2019-06-22] MEDS: Protonix 40MG Tablet PO SCH (10:13)
[2019-06-22] MEDS: Duragesic 25MCG Patch TD SCH (10:19)
[2019-06-22] MEDS: Reglan 10 MG PO SCH (10:30)
[2019-06-22] MEDS: Sodium Chloride 0.9% 1000 ML 1,000 ML IV SCH ×2 (11:13→20:39)
[2019-06-22] MEDS: PATIENT OWN MEDICATION IH SCH ×2 (12:28→19:18)
[2019-06-22] MEDS: ROCEPHIN 1 Gm-D5w 50 ml Bag** 1 G/50 ML IVPB IV SCH (20:40)
[2019-06-22] MEDS: ZOLOFT 50 MG TABLET PO SCH (20:47)
[2019-06-23] MEDS: MORPHINE SULFATE 10 MG/ML IV PRN ×10 (01:39→22:31)
[2019-06-23 06:00] LABS: ALBUMIN 3.1 g/dL (3.5-5.0); ALKALINE PHOSPHATASE 87 U/L (38-126); AMYLASE 91 U/L (30-110); ANION GAP 10.6 MEQ/L (5-15); BLOOD UREA NITROGEN 7 mg/dL (7-17); CHLORIDE 112 mmol/L (98-107); Carbon Dioxide 23 mmol/L (22-30); Creatinine 1 0.72 mg/dL (0.52-1.04); Glucose 69 mg/dL (74-106); LIPASE 272 U/L (23-300); MAGNESIUM 1.5 mg/dL (1.6-2.3); Potassium 4.5 mmol/L (3.5-5.1); SGOT/AST 21 U/L (14-36); SGPT/ALT 21 U/L (0-35); SODIUM 141 mmol/L (137-145); Total Protein 5.9 g/dL (6.3-8.2)
[2019-06-23 06:33] LABS: Hematocrit 34.3 % (35-47); Hemoglobin 10.5 gm/dl (12.0-16.0); Mean Cell Volume 99.4 fl (78-100); Mean Corpuscular Hemoglobin 30.4 pg (26-32); Mean Corpuscular Hgb Concent. 30.6 g/dl (32-36); Mean Platelet Volume 10.1 fl (6-9.5); Platelet Count 259 K/mm3 (150-450); Red Blood Count 3.45 M/mm3 (4.1-5.4); Red Cell Distribution Width 14.8 % (11.5-14.0); White Blood Count 4.4 K/mm3 (4.0-10.5)
[2019-06-23] MEDS: Sodium Chloride 0.9% 1000 ML 1,000 ML IV SCH ×2 (06:45→16:06)
[2019-06-23] MEDS: Reglan 10 MG PO SCH (08:02)
[2019-06-23] MEDS: BUSPAR 5 MG PO SCH ×3 (08:02→20:15)
[2019-06-23] MEDS: ENOXAPARIN SODIUM SQ SCH (08:02)
[2019-06-23] MEDS: Valium 5 MG PO SCH ×2 (08:02→20:16)
[2019-06-23] MEDS: LYRICA 100MG PO SCH ×2 (08:02→20:16)
[2019-06-23] MEDS: Protonix 40MG Tablet PO SCH (08:02)
[2019-06-23] MEDS: PATIENT OWN MEDICATION PO SCH ×5 (08:03→20:17)
[2019-06-23] MEDS: PATIENT OWN MEDICATION IH SCH ×2 (08:04→20:08)
--- NOTE | 2019-06-23 09:02 | PCM.NOTE ---
Date and Time: 06/23/19 0900 Subjective Assessment: Pt feeling better but states her pain is 8/10 currently. She has been tolerating CLD. - Review of Systems Constitutional: No Fever Abdominal/Gastrointestinal: Abdominal Pain Objective Exam General Appearance: mild distress, alert Neurologic Exam: oriented x 3, cooperative Skin Exam: normal color, warm, dry, No rash Respiratory Exam: normal breath sounds, lungs clear, No crackles/rales, No rhonchi, No wheezing Cardiovascular Exam: regular rate/rhythm, normal heart sounds, No murmur Gastrointestinal/Abdomen Exam: soft, normal bowel sounds, tenderness (epigastrum ), distention (mild in epigastrum), No mass, No rebound Extremity Exam: normal inspection, No pedal edema, No swelling Back Exam: normal inspection, No rash OBJECTIVE DATA Vital Signs: Vital Signs - 24 hr Temp Pulse Resp BP Pulse Ox 06/23/19 08:09 79 16 96 06/23/19 08:00 98.5 F 70 17 116/65 94 L 06/23/19 04:00 97.8 F 72 18 93/54 94 L 06/22/19 23:56 97.7 F 63 17 91/56 94 L 06/22/19 20:00 97.9 F 68 18 102/55 94 L 06/22/19 19:18 77 18 94 L 06/22/19 16:12 97.8 F 71 20 103/52 96 06/22/19 12:28 67 18 97 06/22/19 11:52 97.9 F 62 16 92/54 96 Pain Assessment - Last Documented Pain Intensity 8 Pain Scale Used 0-10 Pain Scale Intake and Output: Intake & Output 06/20/19 06/21/19 06/22/19 06/23/19 11:59 11:59 11:59 11:59 Intake Total 4652 4180 Output Total 2750 2625 Balance 1902 1555 Weight 51.5 kg Lab Results: Lab Results-Last 24 Hours 06/22/19 06/23/19 06/23/19 Range/Units 04:00 05:40 05:40 WBC 4.4 (4.0-10.5) K/mm3 RBC 3.45 L (4.1-5.4) M/mm3 Hgb 10.5 L (12.0-16.0) gm/dl Hct 34.3 L (35-47) % MCV 99.4 (78-100) fl MCH 30.4 (26-32) pg MCHC 30.6 L (32-36) g/dl RDW 14.8 H (11.5-14.0) % Plt Count 259 (150-450) K/mm3 MPV 10.1 H (6-9.5) fl Sodium 141 (137-145) mmol/L Potassium 4.5 (3.5-5.1) mmol/L Chloride 112 H (98-107) mmol/L Carbon Dioxide 23 (22-30) mmol/L Anion Gap 10.6 (5-15) MEQ/L BUN 7 (7-17) mg/dL Creatinine 0.72 (0.52-1.04) mg/dL Estimated GFR > 60.0 ML/MIN Glucose 69 L (74-106) mg/dL Calcium 8.0 L (8.4-10.2) mg/dL Magnesium 1.6 1.5 L (1.6-2.3) mg/dL Total Bilirubin 0.20 (0.2-1.3) mg/dL AST 21 (14-36) U/L ALT 21 (0-35) U/L Alkaline Phosphatase 87 (38-126) U/L Serum Total Protein 5.9 L (6.3-8.2) g/dL Albumin 3.1 L (3.5-5.0) g/dL Amylase 91 (30-110) U/L Lipase 272 (23-300) U/L Radiology Exams: Radiology Procedures Category Date Time Status KUB Routine Exams 06/21/19 13:45 Completed Assessment/Plan (1) Pancreatitis Current Visit: No Status: Acute Qualifiers: Chronicity: acute Pancreatitis type: idiopathic Acute pancreatitis complication: no infection or necrosis Qualified Code(s): K85.00 - Idiopathic acute pancreatitis without necrosis or infection Assessment & Plan: Amylase and lipase wnl this morning. Will try advancing diet. Recheck a.m. labs. She has a f/u with Dr. Castle re her pancreas on Friday, so if she needed to stay a couple more days would at least plan on d/c Friday so she can see him. Code(s): K85.90 - ACUTE PANCREATITIS WITHOUT NECROSIS OR INFECTION, UNSP (2) UTI (urinary tract infection) Current Visit: No Status: Acute Qualifiers: Urinary tract infection type: acute cystitis Hematuria presence: without hematuria Qualified Code(s): N30.00 - Acute cystitis without hematuria Assessment & Plan: Klebsiella, susceptible to rocephin. Her last positive Ucx on 04/12/19 was E. faecalis. Code(s): N39.0 - URINARY TRACT INFECTION, SITE NOT SPECIFIED (3) Chronic kidney disease (CKD) stage G3a/A1, moderately decreased glomerular filtration rate (GFR) between 45-59 mL/min/1.73 square meter and albuminuria creatinine ratio less than 30 mg/g Current Visit: No Status: Chronic Code(s): N18.3 - CHRONIC KIDNEY DISEASE, STAGE 3 (MODERATE) (4) Short bowel syndrome Current Visit: No Status: Chronic Code(s): K91.2 - POSTSURGICAL MALABSORPTION, NOT ELSEWHERE CLASSIFIED (5) Suprapubic catheter Current Visit: No Status: Chronic Code(s): Z93.59 - OTHER CYSTOSTOMY STATUS (6) Elevated LFTs Current Visit: No Status: Chronic Code(s): R94.5 - ABNORMAL RESULTS OF LIVER FUNCTION STUDIES
[2019-06-23] MEDS ORDERED: Magnesium Sulfate 1 GM/2 ML VIAL IV ONE (09:15)
[2019-06-23] MEDS: Magnesium 1 Gm / 100 Ml D5W*** 100 ML IV SCH ×2 (10:14→10:49)
[2019-06-23] MEDS: Phenergan 25 MG INJ IV PRN (11:00)
[2019-06-23] MEDS: Zofran 4 MG/2 ML VIAL IV PRN (13:29)
[2019-06-23] MEDS: ZOLOFT 50 MG TABLET PO SCH (20:16)
[2019-06-23] MEDS: ROCEPHIN 1 Gm-D5w 50 ml Bag** 1 G/50 ML IVPB IV SCH (20:16)
[2019-06-24] MEDS: Sodium Chloride 0.9% 1000 ML 1,000 ML IV SCH ×2 (01:39→20:56)
[2019-06-24] MEDS: MORPHINE SULFATE 10 MG/ML IV PRN ×10 (01:52→22:38)
[2019-06-24 05:22] LABS: ALBUMIN 3.3 g/dL (3.5-5.0); ALKALINE PHOSPHATASE 85 U/L (38-126); AMYLASE 84 U/L (30-110); ANION GAP 9.2 MEQ/L (5-15); BLOOD UREA NITROGEN 6 mg/dL (7-17); CHLORIDE 109 mmol/L (98-107); Calcium 8.2 mg/dL (8.4-10.2); Carbon Dioxide 26 mmol/L (22-30); Creatinine 1 0.82 mg/dL (0.52-1.04); Glucose 85 mg/dL (74-106); LIPASE 269 U/L (23-300); MAGNESIUM 1.8 mg/dL (1.6-2.3); Potassium 4.4 mmol/L (3.5-5.1); SGOT/AST 21 U/L (14-36); SGPT/ALT 19 U/L (0-35); SODIUM 139 mmol/L (137-145); Total Protein 6.1 g/dL (6.3-8.2)
[2019-06-24 05:28] LABS: Hemoglobin 10.3 gm/dl (12.0-16.0); Mean Cell Volume 99.1 fl (78-100); Mean Corpuscular Hemoglobin 30.9 pg (26-32); Mean Corpuscular Hgb Concent. 31.2 g/dl (32-36); Mean Platelet Volume 9.9 fl (6-9.5); Platelet Count 266 K/mm3 (150-450); Red Blood Count 3.33 M/mm3 (4.1-5.4); Red Cell Distribution Width 14.6 % (11.5-14.0); White Blood Count 5.5 K/mm3 (4.0-10.5)
[2019-06-24] MEDS: PATIENT OWN MEDICATION IH SCH ×2 (07:23→19:37)
[2019-06-24] MEDS: PATIENT OWN MEDICATION PO SCH ×5 (07:56→22:42)
[2019-06-24] MEDS: Phenergan 25 MG INJ IV PRN (08:04)
--- NOTE | 2019-06-24 09:08 | PCM.NOTE ---
Date and Time: 06/24/19905 Subjective Assessment: Hands and feet started swelling overnight so IVF were turned down to 50cc/hr. She had abd pain (epigastric) worsened after eating yesterday. She did get up and walk yesterday. - Review of Systems Constitutional: No Fever Abdominal/Gastrointestinal: Abdominal Pain Objective Exam General Appearance: mild distress, alert Neurologic Exam: oriented x 3, cooperative Skin Exam: normal color, warm, dry, No rash Eye Exam: eyes nml inspection Ears, Nose, Throat Exam: moist mucous membranes Neck Exam: normal inspection Respiratory Exam: normal breath sounds, lungs clear, No crackles/rales, No rhonchi, No wheezing Cardiovascular Exam: regular rate/rhythm, normal heart sounds, No murmur Gastrointestinal/Abdomen Exam: soft, normal bowel sounds, tenderness (epigastrum ), No distention, No mass, No guarding, No rebound Extremity Exam: pedal edema (trace) OBJECTIVE DATA Vital Signs: Vital Signs - 24 hr Temp Pulse Resp BP Pulse Ox 06/24/19 07:23 66 16 97 06/24/19 07:18 98.8 F 63 16 109/55 93 L 06/24/19 04:00 98.3 F 67 18 103/58 94 L 06/24/19 00:00 97.7 F 72 18 97/53 96 06/23/19 19:55 97.9 F 67 18 110/53 92 L 06/23/19 16:00 97.9 F 72 17 110/57 96 06/23/19 11:39 98.4 F 80 17 104/63 94 L Pain Assessment - Last Documented Pain Intensity 9 Pain Scale Used 0-10 Pain Scale Intake and Output: Intake & Output 06/21/19 06/22/19 06/23/19 06/24/19 11:59 11:59 11:59 11:59 Intake Total 4652 4540 4020 Output Total 2750 2625 2475 Balance 1902 1915 1545 Weight 51.5 kg Lab Results: Lab Results-Last 24 Hours 06/24/19 06/24/19 Range/Units 04:30 04:30 WBC 5.5 (4.0-10.5) K/mm3 RBC 3.33 L (4.1-5.4) M/mm3 Hgb 10.3 L (12.0-16.0) gm/dl Hct 33.0 L (35-47) % MCV 99.1 (78-100) fl MCH 30.9 (26-32) pg MCHC 31.2 L (32-36) g/dl RDW 14.6 H (11.5-14.0) % Plt Count 266 (150-450) K/mm3 MPV 9.9 H (6-9.5) fl Sodium 139 (137-145) mmol/L Potassium 4.4 (3.5-5.1) mmol/L Chloride 109 H (98-107) mmol/L Carbon Dioxide 26 (22-30) mmol/L Anion Gap 9.2 (5-15) MEQ/L BUN 6 L (7-17) mg/dL Creatinine 0.82 (0.52-1.04) mg/dL Estimated GFR > 60.0 ML/MIN Glucose 85 (74-106) mg/dL Calcium 8.2 L (8.4-10.2) mg/dL Magnesium 1.8 (1.6-2.3) mg/dL Total Bilirubin 0.20 (0.2-1.3) mg/dL AST 21 (14-36) U/L ALT 19 (0-35) U/L Alkaline Phosphatase 85 (38-126) U/L Serum Total Protein 6.1 L (6.3-8.2) g/dL Albumin 3.3 L (3.5-5.0) g/dL Amylase 84 (30-110) U/L Lipase 269 (23-300) U/L Assessment/Plan (1) Pancreatitis Current Visit: No Status: Acute Qualifiers: Chronicity: acute Pancreatitis type: idiopathic Acute pancreatitis complication: no infection or necrosis Qualified Code(s): K85.00 - Idiopathic acute pancreatitis without necrosis or infection Assessment & Plan: her amylase and lipase continue to be wnl today even after increasing her diet yesterday. She is trying to advance her diet a little more gradually today. She will need to d/c tomorrow in any event so she can f/u wtih DR. Castle about her pancreatitis. Code(s): K85.90 - ACUTE PANCREATITIS WITHOUT NECROSIS OR INFECTION, UNSP (2) UTI (urinary tract infection) Current Visit: No Status: Acute Qualifiers: Urinary tract infection type: acute cystitis Hematuria presence: without hematuria Qualified Code(s): N30.00 - Acute cystitis without hematuria Assessment & Plan: on rocephin Code(s): N39.0 - URINARY TRACT INFECTION, SITE NOT SPECIFIED (3) Chronic kidney disease (CKD) stage G3a/A1, moderately decreased glomerular filtration rate (GFR) between 45-59 mL/min/1.73 square meter and albuminuria creatinine ratio less than 30 mg/g Current Visit: No Status: Chronic Code(s): N18.3 - CHRONIC KIDNEY DISEASE, STAGE 3 (MODERATE) (4) Short bowel syndrome Current Visit: No Status: Chronic Code(s): K91.2 - POSTSURGICAL MALABSORPTION, NOT ELSEWHERE CLASSIFIED (5) Suprapubic catheter Current Visit: No Status: Chronic Code(s): Z93.59 - OTHER CYSTOSTOMY STATUS (6) Elevated LFTs Current Visit: No Status: Chronic Code(s): R94.5 - ABNORMAL RESULTS OF LIVER FUNCTION STUDIES
[2019-06-24] MEDS: ENOXAPARIN SODIUM SQ SCH (10:11)
[2019-06-24] MEDS: Valium 5 MG PO SCH ×2 (10:13→22:38)
[2019-06-24] MEDS: BUSPAR 5 MG PO SCH ×3 (10:14→22:38)
[2019-06-24] MEDS: LYRICA 100MG PO SCH ×2 (10:14→22:38)
[2019-06-24] MEDS: Protonix 40MG Tablet PO SCH (10:17)
[2019-06-24] MEDS: Reglan 10 MG PO SCH (10:17)
[2019-06-24 11:19] LABS: INR 0.96 (0.8-3.0); PROTIME 10.8 SECONDS (9.95-12.35)
[2019-06-24 11:22] LABS: PTT 30.1 SECONDS (25.3-37.0)
[2019-06-24] MEDS: Zofran 4 MG/2 ML VIAL IV PRN (13:30)
[2019-06-24] MEDS: ROCEPHIN 1 Gm-D5w 50 ml Bag** 1 G/50 ML IVPB IV SCH (22:39)
[2019-06-24] MEDS: ZOLOFT 50 MG TABLET PO SCH (22:39)
[2019-06-25] MEDS: MORPHINE SULFATE 10 MG/ML IV PRN ×3 (04:22→08:32)
[2019-06-25] MEDS: PATIENT OWN MEDICATION IH SCH (07:00)
[2019-06-25] MEDS: LYRICA 100MG PO SCH (07:25)
[2019-06-25] MEDS: BUSPAR 5 MG PO SCH (07:25)
[2019-06-25] MEDS: Duragesic 25MCG Patch TD SCH (07:26)
[2019-06-25] MEDS: Protonix 40MG Tablet PO SCH (07:26)
[2019-06-25] MEDS: Valium 5 MG PO SCH (07:26)
[2019-06-25] MEDS: Reglan 10 MG PO SCH (07:26)
[2019-06-25] MEDS: PATIENT OWN MEDICATION PO SCH ×2 (07:27)
[2019-06-25] MEDS: ENOXAPARIN SODIUM SQ SCH (07:27)
[2019-06-25 07:52] VITALS: BP 136/69; PULSE 62; O2SAT 93
[2019-06-25 09:00] LABS: Hematocrit 36.3 % (35-47); Hemoglobin 11.6 gm/dl (12.0-16.0); Mean Cell Volume 96.5 fl (78-100); Mean Platelet Volume 9.6 fl (6-9.5); Platelet Count 258 K/mm3 (150-450); Red Blood Count 3.76 M/mm3 (4.1-5.4); Red Cell Distribution Width 14.6 % (11.5-14.0); White Blood Count 5.7 K/mm3 (4.0-10.5)
[2019-06-25 09:02] LABS: Mean Corpuscular Hemoglobin 30.8 pg (26-32)
[2019-06-25 09:07] LABS: ALBUMIN 3.8 g/dL (3.5-5.0); ALKALINE PHOSPHATASE 96 U/L (38-126); AMYLASE 93 U/L (30-110); ANION GAP 13.2 MEQ/L (5-15); BLOOD UREA NITROGEN 5 mg/dL (7-17); CHLORIDE 107 mmol/L (98-107); Calcium 8.5 mg/dL (8.4-10.2); Carbon Dioxide 25 mmol/L (22-30); Creatinine 1 0.91 mg/dL (0.52-1.04); Glucose 108 mg/dL (74-106); LIPASE 193 U/L (23-300); MAGNESIUM 1.4 mg/dL (1.6-2.3); Potassium 3.9 mmol/L (3.5-5.1); SGOT/AST 33 U/L (14-36); SGPT/ALT 22 U/L (0-35); SODIUM 141 mmol/L (137-145); Total Protein 7.1 g/dL (6.3-8.2)
--- NOTE | 2019-06-25 09:07 | PCM.DS ---
Discharge Summary Date of Admission: 06/22/19 08:40 Admitting Physician: JOSE ZAMORANO Primary Care Provider: JOSE ZAMORANO Allergies Allergies oxybutynin Allergy (Severe, Verified 06/04/19 07:59) pharyngeal swelling oxycodone [From Percocet] Allergy (Intermediate, Verified 06/04/19 07:59) Hives Pt. stated " Immediatly after taking it I felt like I was coming out of my skin." ampicillin Allergy (Mild, Verified 06/04/19 07:59) hives erythromycin base [Erythromycin Base] Allergy (Mild, Verified 06/04/19 07:59) Hives duloxetine HCl [From Cymbalta] Allergy (Unknown, Verified 06/04/19 07:59) Tightness of Throat Hospital Summary - Hospital Course Hospital Course: Pt is 54 yo female pt of mine from [facility] with hx Crohn's disease with ileostomy, bladder damage requiring suprapubic catheter, chronic renal failure, short gut syndrome with chronic hypokalemia and hypomagnesemia, chronic pancreatitis, and recurrent UTIs who was admitted directly this week for abd pain and pancreatitis. Her lipase was 699 on admission. She has received IV fluids and her lipase normalized after 2 days. She was also found to have UTI, + culture ( with different organism than on her last culture); she has received 3d of IV rocephin and will go home on 4d of po keflex. She is still having some epigastric pain, although it has improved. However, she has an appointment today with the long goods drier to discuss her pancreas so I am discharging her for that. - Vitals & Intake/Output Vital Signs: Vital Signs Temperature 97.6 F 06/25/19 07:51 Pulse Rate 62 06/25/19 07:51 Respiratory Rate 18 06/25/19 07:51 Blood Pressure 136/69 06/25/19 07:51 O2 Sat by Pulse Oximetry 93 L 06/25/19 07:51 Intake & Output: Intake & Output 06/22/19 06/23/19 06/24/19 06/25/19 11:59 11:59 11:59 11:59 Intake Total 4652 4540 4020 4717 Output Total 2750 2625 4965 1999 Balance 1902 1915 1545 2717 Weight 51.5 kg 51.5 kg - Lab Result Diagrams: 06/24/19 04:30 06/24/19 04:30 Lab Results-Last 24 Hrs: Lab Results-Last 24 Hours 06/24/19 Range/Units 10:19 PT 10.8 (9.95-12.35) SECONDS INR 0.96 (0.8-3.0) APTT 30.1 (25.3-37.0) SECONDS Micro Results-Entire Visit: Microbiology 06/21/19 16:35 Urine Culture - Final Suprapubic Cath Klebsiella Pneumoniae - Procedures and Test Procedures and Tests throughout Hospitalization: Therapy Orders & Screens 06/22/19 07:00 Respiratory Therapy Assessment DAILY Comment: Diagnosis: Abdominal pain, chonic pancreatitis, Chronic renal failure 06/22/19 19:00 Respiratory MDI BID Comment: Diagnosis: Abdominal pain, chonic pancreatitis, Chronic renal failure Discharge Exam General Appearance: no apparent distress, alert, other (up walking and dressed.) Neurologic Exam: oriented x 3, cooperative Ears, Nose, Throat Exam: moist mucous membranes Neck Exam: normal inspection Respiratory Exam: normal breath sounds, lungs clear, No crackles/rales, No rhonchi, No wheezing Cardiovascular Exam: regular rate/rhythm, normal heart sounds, No murmur Gastrointestinal/Abdomen Exam: soft, tenderness (epigastrum), No normal bowel sounds (hyperactive), No distention, No mass, No guarding, No rebound Extremity Exam: swelling (1+ pretibial edema bilat. R hand edematous) Skin Exam: normal color, warm, dry, No rash Final Diagnosis/Problem List - Final Discharge Diagnosis/Problem (1) Pancreatitis Current Visit: No Status: Acute Assessment & Plan: Much improved. Labs have normalized. To GI specialist today, thank you. On creon x 8d today. Code(s): K85.90 - ACUTE PANCREATITIS WITHOUT NECROSIS OR INFECTION, UNSP (2) UTI (urinary tract infection) Current Visit: No Status: Acute Assessment & Plan: finish 7d course of abx. Klebsiella. Code(s): N39.0 - URINARY TRACT INFECTION, SITE NOT SPECIFIED (3) Chronic kidney disease (CKD) stage G3a/A1, moderately decreased glomerular filtration rate (GFR) between 45-59 mL/min/1.73 square meter and albuminuria creatinine ratio less than 30 mg/g Current Visit: No Status: Chronic Code(s): N18.3 - CHRONIC KIDNEY DISEASE, STAGE 3 (MODERATE) (4) Short bowel syndrome Current Visit: No Status: Chronic Code(s): K91.2 - POSTSURGICAL MALABSORPTION, NOT ELSEWHERE CLASSIFIED (5) Suprapubic catheter Current Visit: No Status: Chronic Code(s): Z93.59 - OTHER CYSTOSTOMY STATUS (6) Elevated LFTs Current Visit: No Status: Chronic Code(s): R94.5 - ABNORMAL RESULTS OF LIVER FUNCTION STUDIES - Discharge Disposition: Home, Self-Care Condition: Good Prescriptions: New Cephalexin Mh 500 mg [Keflex 500 mg] 500 mg PO QID #16 capsule Continue Pregabalin [Lyrica] 100 mg PO BID Diazepam 5 mg [Valium 5 MG] 10 mg PO BID Promethazine HCl 25 mg [Phenergan 25 mg] 25 mg PO QIDPRN PRN PRN Reason: Nausea Heparin Flush 500 units/5 ml [Heparin Lock Flush 100 Units/ml 5ml Syringe ] 500 units PORT FLUSH PRN PRN disp.syrin PRN Reason: Iv Port Flush Buspirone HCl 5 mg [Buspar 5 mg] 15 mg PO TID Metoclopramide HCl [Reglan] 10 mg PO DAILY Furosemide 40 mg [Lasix 40 MG] 40 mg PO DAILY PRN PRN PRN Reason: fluid retention Loperamide HCl 2 mg [Imodium 2 mg] 2 mg PO TID PRN Esomeprazole Magnesium [Nexium] 40 mg PO DAILY Spironolactone 25 mg [Aldactone 25 MG] 25 mg PO DAILY PRN PRN PRN Reason: water retention Sertraline HCl [Zoloft] 200 mg PO HS Brexpiprazole [Rexulti] 2 mg PO HS Solifenacin Succinate [Vesicare] 10 mg PO DAILY Mirabegron [Myrbetriq] 50 mg PO DAILY Iron,Carbonyl [Iron Chews] 25 mg PO DAILY Omeprazole 40 mg PO DAILY Melatonin 20 mg PO HS Vortioxetine Hydrobromide [Trintellix] 20 mg PO HS Albuterol Sulfate [Ventolin Hfa] 90 mcg IH Q4HPRN PRN PRN Reason: sob Fentanyl 1 each TD DIRECTIONS UNKNOWN Hydrocodone Bit/Acetaminophen [[place] 10-325 Tablet] 1 tab PO QID PRN PRN PRN Reason: Pain Lipase/Protease/Amylase [Concepcion Teran 24,000 Units Capsule] 2 tab PO TID Instructions: Pancreatitis, Pancrelipase Follow up with: JOSE ZAMORANO [Primary Care Provider] - 07/05/19 10:45 am
== END 2019-06-25 08:55 | disposition home or self-care (01) | DRG 439 ==
LOC: MED SURG 08:40 → OBSVTOIN 06-22 08:40
PROVIDERS: ADMIT Family Medicine; ATTEND Family Medicine
DX: K85.90 Acute pancreatitis without necrosis or infection, unspecified (principal); N39.0 Urinary tract infection, site not specified; K91.2 Postsurgical malabsorption, not elsewhere classified; K50.90 Crohn's disease, unspecified, without complications; Z93.59 Other cystostomy status; N18.3 Chronic kidney disease, stage 3 (moderate); R94.5 Abnormal results of liver function studies; K86.1 Other chronic pancreatitis; Z79.899 Other long term (current) drug therapy; G62.9 Polyneuropathy, unspecified; F41.9 Anxiety disorder, unspecified; F32.9 Major depressive disorder, single episode, unspecified; R10.13 Epigastric pain; R10.9 Unspecified abdominal pain
CPT/HCPCS: 36415; 74018; 80053; 81001; 82150; 83605; 83690; 83735; 85025; 85027; 85610; 85730; 87077; 87086; 87186; 94640; 94760; G0378; J0696; J1642; J1650; J2270; J2405; J2550; J3475; A9270-GY

== ENCOUNTER 2019-07-21 04:10 | Inpatient (IN) | payer MEDICARE ==
[2019-07-21] MEDS ORDERED: Sodium Chloride 0.9% 1000 ML 1,000 ML IV STA (04:43)
[2019-07-21] MEDS ORDERED: THORAZINE 50 MG*** 50 MG in Sodium Chloride 0.9% 100 ML IVPB 100 ML IV ONE (04:43)
[2019-07-21] MEDS ORDERED: PROTONIX 40 MG IV IV ONE ×2 (04:43→05:00)
[2019-07-21] MEDS ORDERED: SUBLIMAZE 100 MCG/2 ML IV ONE (04:43)
[2019-07-21] MEDS ORDERED: Zofran 4 MG/2 ML VIAL IV ONE (04:49)
--- NOTE | 2019-07-21 04:52 | ERPHSYRPT ---
- History of Present Illness Patient Subjective Stated Complaint: PT STATES SHE HAS HAD NAUSEA AND VOMITING WITH ABDOMINAL PAIN SINCE 11PM LAST NIGHT. PT STATES SHE HAS BEEN HAVING SOME BLADDER SPASMS. PT STATES SHE IS CONCERNED BECAUSE SHE HAS A HISTORY OF PANCREATITIS AND HAS A UROSTOMY. Triage Nursing Assessment: PT IS ALERT ANDD ORIETED, PT IS IN BED MOANING AND STATES THAT PAIN IN ABDOMEN IS 10/10. PT STATES SHE IS EXTREMELY NAUSEATED. NO FEVER NOTED, VITALS WNL Physician History: patient is a 54-year-old female who presents with multiple GI problems. She has a history of Crohn's disease and has had a resection has some feel short gut syndrome also reports chronic pancreatitis she has a ileostomy and urostomy that has been placed. She started yesterday with bladder spasms and then at 11 PM developed nausea and vomiting she's had no fever chills or sweats. Pain is in the left lower quadrant and radiates into the left flank. Timing/Duration: yesterday Activities at Onset: none Quality: cramping, stabbing Abdominal Pain Onset Location: LLQ Pain Radiation: flank (left) Associated Symptoms: nausea, vomiting, weakness Allergies/Adverse Reactions: oxybutynin Allergy (Severe, Verified 07/21/19 04:30) pharyngeal swelling oxycodone [From Percocet] Allergy (Intermediate, Verified 07/21/19 04:30) Hives Pt. stated " Immediatly after taking it I felt like I was coming out of my skin." ampicillin Allergy (Mild, Verified 07/21/19 04:30) hives erythromycin base [Erythromycin Base] Allergy (Mild, Verified 07/21/19 04:30) Hives duloxetine HCl [From Cymbalta] Allergy (Unknown, Verified 07/21/19 04:30) Tightness of Throat Home Medications: Pregabalin [Lyrica] 100 mg PO BID 12/24/16 [History] Promethazine HCl 25 mg [Phenergan 25 mg] 25 mg PO QIDPRN PRN 01/07/17 [ History] Buspirone HCl 5 mg [Buspar 5 mg] 15 mg PO TID 01/09/18 [History] Metoclopramide HCl [Reglan] 10 mg PO DAILY 03/05/18 [History] Furosemide 40 mg [Lasix 40 MG] 40 mg PO DAILY PRN PRN 04/06/18 [History] Loperamide HCl 2 mg [Imodium 2 mg] 2 mg PO TID PRN 08/05/18 [History] Esomeprazole Magnesium [Nexium] 40 mg PO DAILY 09/07/18 [History] Spironolactone 25 mg [Aldactone 25 MG] 25 mg PO DAILY PRN PRN 09/23/18 [ History] Sertraline HCl [Zoloft] 200 mg PO HS 11/06/18 [History] Brexpiprazole [Rexulti] 2 mg PO HS 12/11/18 [History] Solifenacin Succinate [Vesicare] 10 mg PO DAILY 01/05/19 [History] Mirabegron [Myrbetriq] 50 mg PO DAILY 02/26/19 [History] Iron,Carbonyl [Iron Chews] 25 mg PO DAILY 02/27/19 [History] Melatonin 20 mg PO HS 02/27/19 [History] Omeprazole 40 mg PO DAILY 02/27/19 [History] Albuterol Sulfate [Ventolin Hfa] 90 mcg IH Q4HPRN PRN 04/12/19 [History] Vortioxetine Hydrobromide [Trintellix] 20 mg PO HS 04/12/19 [History] Hydrocodone Bit/Acetaminophen [[place] 10-325 Tablet] 1 tab PO QID PRN PRN [History] Lipase/Protease/Amylase [Concepcion Dr 24,000 Units Capsule] 2 tab PO TID 06/21/19 [ History] Hx Tetanus, Diphtheria Vaccination/Date Given: Yes Hx Influenza Vaccination/Date Given: Yes Hx Pneumococcal Vaccination/Date Given: Yes Immunizations Up to Date: Yes - Review of Systems Constitutional: No Fever, No Chills Eyes: No Symptoms Ears, Nose, & Throat: No Symptoms Respiratory: No Cough, No Dyspnea Cardiac: No Chest Pain, No Edema, No Syncope Abdominal/Gastrointestinal: Abdominal Pain, Nausea, Vomiting, No Diarrhea Genitourinary Symptoms: No Dysuria Musculoskeletal: No Back Pain, No Neck Pain Skin: No Rash Neurological: No Dizziness, No Focal Weakness, No Sensory Changes Psychological: No Symptoms Endocrine: No Symptoms All Other Systems: Reviewed and Negative - Past Medical History Pertinent Past Medical History: Yes Neurological History: Peripheral Neuropathy ENT History: No Pertinent History Cardiac History: No Pertinent History Respiratory History: No Pertinent History Endocrine Medical History: Adrenal Insufficiency, Other Musculoskeletal History: Osteoarthritis GI Medical History: Crohns Disease, Pancreatitis, Other History: Renal Disease, Other Psycho-Social History: Anxiety, Depression Female Reproductive Disorders: Other Other Medical History: Pt had surgery for ahdesions in the gut and had complications. She has a colostomy and superpubic cather. Pt gets infusions with potassium and magnesium - Past Surgical History Past Surgical History: Yes (ileostomy, suprapubic catheter) Neuro Surgical History: No Pertinent History Cardiac: No Pertinent History Respiratory: No Pertinent History Gastrointestinal: Bowel Surgery, Cholecystectomy Genitourinary: Other Musculoskeletal: No Pertinent History Female Surgical History: Hysterectomy Other Surgical History: has 120 cm of small bowel, urostomy following compications after surgery to remove adhesions - Social History Smoking Status: Current every day smoker How long have you smoked: 20 years Exposure to second hand smoke: No Drug Use: none Patient Lives Alone: No - Female History Hx Last Menstrual Period: HYSTERECTOMY - Nursing Vital Signs Nursing Vital Signs: Initial Vital Signs Temperature 98.1 F 07/21/19 04:14 Pulse Rate 83 07/21/19 04:14 Respiratory Rate 18 07/21/19 04:14 Blood Pressure 128/88 07/21/19 04:14 O2 Sat by Pulse Oximetry 97 07/21/19 04:14 Pain Scale Pain Intensity 10 - Physical Exam General Appearance: moderate distress, alert Eye Exam: PERRL/EOMI, eyes nml inspection Ears, Nose, Throat Exam: normal ENT inspection, pharynx normal, moist mucous membranes Neck Exam: normal inspection, non-tender, supple, full range of motion Respiratory Exam: normal breath sounds, lungs clear, No respiratory distress Cardiovascular Exam: regular rate/rhythm, normal heart sounds Gastrointestinal/Abdomen Exam: tenderness, guarding, rebound, other, No mass Back Exam: normal inspection, normal range of motion, No CVA tenderness, No vertebral tenderness Extremity Exam: normal inspection, normal range of motion, pelvis stable Neurologic Exam: alert, oriented x 3, cooperative, normal mood/affect, nml cerebellar function, sensation nml, No motor deficits Skin Exam: normal color, warm, dry SpO2: 97 - Course Nursing assessment & vital signs reviewed: Yes - CT Exams Abdomen/Pelvis CT Interpretation: Tele-radiologist Report, Other (rradiologist says there is mild left hydronephrosis which is new with mild dilation of the left ureter which do differential diagnosis includes recent passage of a renal stone and- year-old traction unrelated to stones) Ordered Tests: Active Orders 24 hr Category Date Time Status IV Insertion STAT Care 07/21/19 04:43 Active ABDOMEN AND PELVIS W/0 CONTRAS [CT] Stat Exams 07/21/19 04:43 Taken AMYLASE Stat Lab 07/21/19 04:51 Completed CBC W DIFF Stat Lab 07/21/19 04:51 Completed CMP Stat Lab 07/21/19 04:51 Completed CULTURE,URINE Stat Lab 07/21/19 04:58 Received LIPASE Stat Lab 07/21/19 04:51 Completed Lactic Acid Stat Lab 07/21/19 04:50 Completed PROTIME WITH INR Stat Lab 07/21/19 04:51 Completed UA W/RFX UR CULTURE Stat Lab 07/21/19 04:58 Completed Medication Summary Discontinued Medications Generic Name Dose Route Start Last Admin Trade Name Kristy PRN Reason Stop Dose Admin Fentanyl Citrate 100 mcg 07/21/19 04:43 07/21/19 05:05 Sublimaze 100 Mcg/2 Ml IV 07/21/19 04:44 100 mcg STAT ONE Administration Fentanyl Citrate Confirm 07/21/19 05:00 Sublimaze 100 Mcg/2 Ml Administered 07/21/19 05:01 Dose 100 mcg .ROUTE .STK-MED ONE Hydromorphone HCl 2 mg 07/21/19 05:48 07/21/19 05:55 Dilaudid 2 Mg Injection IV 07/21/19 05:49 2 mg ONCE ONE Administration Hydromorphone HCl Confirm 07/21/19 05:52 Hydromorphone 1 Mg/Ml Ampule Administered 07/21/19 05:53 Dose 2 mg .ROUTE .STK-MED ONE Chlorpromazine HCl 50 mg/ 102 mls @ 100 mls/hr 07/21/19 04:43 Sodium Chloride IV 07/21/19 05:44 STAT ONE Sodium Chloride 1,000 mls @ 999 mls/hr 07/21/19 04:43 07/21/19 05:04 Sodium Chloride 0.9% 1000 Ml IV 07/21/19 05:43 999 mls/hr .Q1H1M STA Administration Sodium Chloride Confirm 07/21/19 05:00 Sodium Chloride 0.9% 1000 Ml Administered 07/21/19 05:01 Dose 1,000 mls @ ud .ROUTE .STK-MED ONE Ceftriaxone Sodium/Dextrose 1 g in 50 mls @ 100 mls/hr 07/21/19 05:37 05:39 Rocephin 1 Gm-D5w 50 Ml Bag IV 07/21/19 06:06 100 mls/hr STAT STA 100 mls/hr Administration Ceftriaxone Sodium/Dextrose Confirm 07/21/19 05:38 Rocephin 1 Gm-D5w 50 Ml Bag Administered 07/21/19 05:39 Dose 1 g in 50 mls @ ud IV .STK-MED ONE Ondansetron HCl 4 mg 07/21/19 04:49 07/21/19 05:05 Zofran 4 Mg/2 Ml Vial IV 07/21/19 04:50 4 mg STAT ONE Administration Ondansetron HCl Confirm 07/21/19 05:00 Zofran 4 Mg/2 Ml Vial Administered 07/21/19 05:01 Dose 4 mg .ROUTE .STK-MED ONE Pantoprazole Sodium 40 mg 07/21/19 04:43 07/21/19 05:05 Protonix 40 Mg Iv IV 07/21/19 04:44 40 mg STAT ONE Administration Pantoprazole Sodium Confirm 07/21/19 05:00 Protonix 40 Mg Iv Administered 07/21/19 05:01 Dose 40 mg IV .STK-MED ONE Lab/Rad Data: Laboratory Result Diagrams 07/21/19 04:51 07/21/19 04:51 Laboratory Results 07/21/19 07/21/19 07/21/19 Range/Units 04:58 04:51 04:51 WBC (4.0-10.5) K/mm3 RBC (4.1-5.4) M/mm3 Hgb (12.0-16.0) gm/dl Hct (35-47) % MCV (78-100) fl MCH (26-32) pg MCHC (32-36) g/dl RDW (11.5-14.0) % Plt Count (150-450) K/mm3 MPV (6-9.5) fl Gran % (36.0-66.0) % Eos # (Auto) (0-0.5) Absolute Lymphs (auto) (1.0-4.6) Absolute Monos (auto) (0.0-1.3) Lymphocytes % (24.0-44.0) % Monocytes % (0.0-12.0) % Eosinophils % (0.00-5.0) % Basophils % (0.0-0.4) % Absolute Granulocytes (1.4-6.9) Basophils # (0-0.4) PT 10.5 (9.95-12.35) SECONDS INR 0.93 (0.8-3.0) Sodium 136 L (137-145) mmol/L Potassium 3.8 (3.5-5.1) mmol/L Chloride 98 (98-107) mmol/L Carbon Dioxide 27 (22-30) mmol/L Anion Gap 14.0 (5-15) MEQ/L BUN 24 H (7-17) mg/dL Creatinine 1.23 H (0.52-1.04) mg/dL Estimated GFR 48.4 ML/MIN Glucose 88 (74-106) mg/dL Lactic Acid (0.4-2.0) Calcium 9.3 (8.4-10.2) mg/dL Total Bilirubin 0.50 (0.2-1.3) mg/dL AST 33 (14-36) U/L ALT 49 H (0-35) U/L Alkaline Phosphatase 122 (38-126) U/L Serum Total Protein 8.0 (6.3-8.2) g/dL Albumin 4.5 (3.5-5.0) g/dL Amylase 142 H (30-110) U/L Lipase 623 H (23-300) U/L Urine Color CARMEN (YELLOW) Urine Appearance CLOUDY (CLEAR) Urine pH 6.0 (5-6) Ur Specific [place] 1.022 (1.005-1.025) Urine Protein >=500 (Negative) Urine Ketones NEGATIVE (NEGATIVE) Urine Blood LARGE (0-5) Gregg/ul Urine Nitrite POSITIVE (NEGATIVE) Urine Bilirubin NEGATIVE (NEGATIVE) Urine Urobilinogen 4 (0-1) mg/dL Ur Leukocyte Esterase TRACE (NEGATIVE) Urine WBC (Auto) >100 (0-5) /HPF Urine RBC (Auto) >101 (0-2) /HPF U Epithel Cells (Auto) NONE (FEW) /HPF Urine Bacteria (Auto) MODERATE (NEGATIVE) /HPF Urine Mucus (Auto) SLIGHT (NEGATIVE) /HPF Urine Culture Reflexed YES (NO) Urine Glucose NEGATIVE (NEGATIVE) mg/dL 07/21/19 07/21/19 Range/Units 04:51 04:50 WBC 9.4 (4.0-10.5) K/mm3 RBC 4.19 (4.1-5.4) M/mm3 Hgb 12.7 (12.0-16.0) gm/dl Hct 38.3 (35-47) % MCV 91.4 (78-100) fl MCH 30.3 (26-32) pg MCHC 33.2 (32-36) g/dl RDW 14.4 H (11.5-14.0) % Plt Count 253 (150-450) K/mm3 MPV 10.1 H (6-9.5) fl Gran % 60.9 (36.0-66.0) % Eos # (Auto) 0.37 (0-0.5) Absolute Lymphs (auto) 2.58 (1.0-4.6) Absolute Monos (auto) 0.66 (0.0-1.3) Lymphocytes % 27.6 (24.0-44.0) % Monocytes % 7.1 (0.0-12.0) % Eosinophils % 4.0 (0.00-5.0) % Basophils % 0.4 (0.0-0.4) % Absolute Granulocytes 5.71 (1.4-6.9) Basophils # 0.04 (0-0.4) PT (9.95-12.35) SECONDS INR (0.8-3.0) Sodium (137-145) mmol/L Potassium (3.5-5.1) mmol/L Chloride (98-107) mmol/L Carbon Dioxide (22-30) mmol/L Anion Gap (5-15) MEQ/L BUN (7-17) mg/dL Creatinine (0.52-1.04) mg/dL Estimated GFR ML/MIN Glucose (74-106) mg/dL Lactic Acid 1.5 (0.4-2.0) Calcium (8.4-10.2) mg/dL Total Bilirubin (0.2-1.3) mg/dL AST (14-36) U/L ALT (0-35) U/L Alkaline Phosphatase (38-126) U/L Serum Total Protein (6.3-8.2) g/dL Albumin (3.5-5.0) g/dL Amylase (30-110) U/L Lipase (23-300) U/L Urine Color (YELLOW) Urine Appearance (CLEAR) Urine pH (5-6) Ur Specific [place] (1.005-1.025) Urine Protein (Negative) Urine Ketones (NEGATIVE) Urine Blood (0-5) Gregg/ul Urine Nitrite (NEGATIVE) Urine Bilirubin (NEGATIVE) Urine Urobilinogen (0-1) mg/dL Ur Leukocyte Esterase (NEGATIVE) Urine WBC (Auto) (0-5) /HPF Urine RBC (Auto) (0-2) /HPF U Epithel Cells (Auto) (FEW) /HPF Urine Bacteria (Auto) (NEGATIVE) /HPF Urine Mucus (Auto) (NEGATIVE) /HPF Urine Culture Reflexed (NO) Urine Glucose (NEGATIVE) mg/dL - Progress Progress: improved Discussed with : Angélica Will see patient in: hospital (observation) - Departure Departure Disposition: Observation Clinical Impression: Urinary tract infection, Pancreatitis Condition: Stable Critical Care Time: No Referrals: JOSE ZAMORANO [Primary Care Provider] -
[2019-07-21 04:55] LABS: Absolute Neutrophil Ct (ANC) 5.71 (1.4-6.9); BASOPHIL % 0.4 % (0.0-0.4); Basophil (Absolute #) 0.04 (0-0.4); Eosinophil (Absolute #) 0.37 (0-0.5); Hematocrit 38.3 % (35-47); Hemoglobin 12.7 gm/dl (12.0-16.0); INR 0.93 (0.8-3.0); Lymphocyte (Absolute #) 2.58 (1.0-4.6); Lymphocytes % 27.6 % (24.0-44.0); Mean Cell Volume 91.4 fl (78-100); Mean Corpuscular Hemoglobin 30.3 pg (26-32); Mean Corpuscular Hgb Concent. 33.2 g/dl (32-36); Mean Platelet Volume 10.1 fl (6-9.5); Monocyte (Absolute #) 0.66 (0.0-1.3); Monocytes % 7.1 % (0.0-12.0); Neutrophil % 60.9 % (36.0-66.0); PROTIME 10.5 SECONDS (9.95-12.35); Platelet Count 253 K/mm3 (150-450); Red Blood Count 4.19 M/mm3 (4.1-5.4); Red Cell Distribution Width 14.4 % (11.5-14.0); White Blood Count 9.4 K/mm3 (4.0-10.5)
[2019-07-21 05:00] LABS: ALBUMIN 4.5 g/dL (3.5-5.0); BILIRUBIN,TOTAL 0.5 mg/dL (0.2-1.3); Calcium 9.3 mg/dL (8.4-10.2); Creatinine 1 1.23 mg/dL (0.52-1.04); Potassium 3.8 mmol/L (3.5-5.1)
[2019-07-21] MEDS ORDERED: Sodium Chloride 0.9% 1000 ML 1,000 ML ONE ×2 (05:00→06:37)
[2019-07-21] MEDS ORDERED: SUBLIMAZE 100 MCG/2 ML ONE (05:00)
[2019-07-21] MEDS ORDERED: Zofran 4 MG/2 ML VIAL ONE (05:00)
[2019-07-21 05:10] LABS: Appearance CLOUDY (CLEAR); Bacteria MODERATE /HPF (NEGATIVE); Bilirubin NEGATIVE (NEGATIVE); Blood LARGE Ery/ul (0-5); Glucose NEGATIVE (NEGATIVE); Ketones NEGATIVE (NEGATIVE); Leukocyte Esterase TRACE (NEGATIVE); Mucus SLIGHT /HPF (NEGATIVE); Nitrite POSITIVE (NEGATIVE); Protein,Urine Dip >=500 (Negative); Specific Gravity 1.022 (1.005-1.025); Urobilinogen 4 mg/dL (0-1); WBC >100 /HPF (0-5)
[2019-07-21 05:15] LABS: RBC >101 /HPF (0-2)
[2019-07-21] MEDS ORDERED: ROCEPHIN 1 Gm-D5w 50 ml Bag** 1 G/50 ML IVPB IV STA (05:37)
[2019-07-21] MEDS ORDERED: ROCEPHIN 1 Gm-D5w 50 ml Bag** 1 G/50 ML IVPB IV ONE (05:38)
[2019-07-21] MEDS ORDERED: DILAUDID 2 MG INJECTION IV ONE (05:48)
[2019-07-21] MEDS ORDERED: Hydromorphone 1 mg/ml Ampule ONE (05:52)
[2019-07-21] MEDS ORDERED: Sodium Chloride 0.9% 1000 ML 1,000 ML IV SCH (06:45)
[2019-07-21] MEDS ORDERED: DILAUDID 2 MG INJECTION IV PRN (07:11)
[2019-07-21] MEDS: Sodium Chloride 0.9% 1000 ML 1,000 ML IV SCH ×3 (07:15→19:40)
--- NOTE | 2019-07-21 09:06 | PCM.HP ---
History of Present Illness - Chief Complaint Chief Complaint: pancreatitis History of Present Illness: is a 54 year old female pt of mine from [facility] with hx Crohn's disease ( with ileostomy), suprapubic catheter, chronic renal failure, and chronic pancreatitis who was admitted through ER with abdominal pain. Pain is LLQ/L flank. She was found to have UA concerning for UTI and elevated lipase. CT abd/ pelvis with mild hydronephrosis on L. Her WBC were nl. She was put on CLD, given IVF and IV dilaudid in ER. Her pain was 10/10 at home but she is currently more comfortable (although itching). Two days ago she started having increase in abd pain and nausea, no vomiting. She notes she has been eating foods recently that aren't part of her usual diet ( such as red meat and tomatoes). - Review of Systems Constitutional: No Fever Abdominal/Gastrointestinal: Abdominal Pain, Nausea, Other (increased ostomy output) Genitourinary Symptoms: Other (bladder spasms/pain) All Other Systems: Reviewed and Negative Medications & Allergies Home Medications: Home Medication List Pregabalin [Lyrica] 100 mg PO BID 12/24/16 [History Confirmed 07/21/19] Promethazine HCl 25 mg [Phenergan 25 mg] 25 mg PO QIDPRN PRN 01/07/17 [ History Confirmed 07/21/19] Heparin Flush 500 units/5 ml [Heparin Lock Flush 100 Units/ml 5ml Syringe] 500 units PORT FLUSH PRN PRN disp.syrin 08/10/17 [Rx Confirmed 07/21/19] Buspirone HCl 5 mg [Buspar 5 mg] 15 mg PO TID 01/09/18 [History Confirmed 07/21/19] Metoclopramide HCl [Reglan] 10 mg PO DAILY 03/05/18 [History Confirmed 07/21/19] Furosemide 40 mg [Lasix 40 MG] 40 mg PO DAILY PRN PRN 04/06/18 [History Confirmed 07/21/19] Loperamide HCl 2 mg [Imodium 2 mg] 2 mg PO TID PRN 08/05/18 [History Confirmed 07/21/19] Esomeprazole Magnesium [Nexium] 40 mg PO DAILY 09/07/18 [History Confirmed 07/21] Spironolactone 25 mg [Aldactone 25 MG] 25 mg PO DAILY PRN PRN 09/23/18 [ History Confirmed 07/21/19] Sertraline HCl [Zoloft] 200 mg PO HS 11/06/18 [History Confirmed 07/21/19] Brexpiprazole [Rexulti] 2 mg PO HS 12/11/18 [History Confirmed 07/21/19] Solifenacin Succinate [Vesicare] 10 mg PO DAILY 01/05/19 [History Confirmed ] Mirabegron [Myrbetriq] 50 mg PO DAILY 02/26/19 [History Confirmed 07/21/19] Iron,Carbonyl [Iron Chews] 25 mg PO DAILY 02/27/19 [History Confirmed 07/21/19] Melatonin 20 mg PO HS 02/27/19 [History Confirmed 07/21/19] Omeprazole 40 mg PO DAILY 02/27/19 [History Confirmed 07/21/19] Albuterol Sulfate [Ventolin Hfa] 90 mcg IH Q4HPRN PRN 04/12/19 [History Confirmed 07/21/19] Vortioxetine Hydrobromide [Trintellix] 20 mg PO HS 04/12/19 [History Confirmed 07/21/19] Hydrocodone Bit/Acetaminophen [Foley 10-325 Tablet] 1 tab PO QID PRN PRN [History Confirmed 07/21/19] Lipase/Protease/Amylase [Concepcion Teran 24,000 Units Capsule] 2 tab PO TID 06/21/19 [ History Confirmed 07/21/19] Allergies/Adverse Reactions: Allergies Allergy/AdvReac Type Severity Reaction Status Date / Time oxybutynin Allergy Severe Verified 07/21/19 04:30 oxycodone [From Percocet] Allergy Intermediate Hives Verified 07/21/19 04:30 ampicillin Allergy Mild Verified 07/21/19 04:30 erythromycin base Allergy Mild Verified 07/21/19 04:30 [Erythromycin Base] duloxetine HCl Allergy Unknown Tightness Verified 07/21/19 04:30 [From Cymbalta] of Throat - Past Medical History Past Medical History: Yes Neurological History: Peripheral Neuropathy ENT History: No Pertinent History Cardiac History: No Pertinent History Respiratory History: No Pertinent History Endocrine Medical History: Adrenal Insufficiency, Other Musculoskelatal History: Osteoarthritis GI Medical History: Crohns Disease, Pancreatitis, Other History: Renal Disease, Other Pyscho-Social History: Anxiety, Depression Reproductive Disorders: Other Comment: Pt had surgery for ahdesions in the gut and had complications. She has a colostomy and superpubic cather. Pt gets infusions with potassium and magnesium - Female History Hx Last Menstrual Period: HYSTERECTOMY Are you now?: No - Past Surgical History Past Surgical History: Yes (ileostomy, suprapubic catheter) Neuro Surgical History: No Pertinent History Cardiac History: No Pertinent History Respiratory Surgery: No Pertinent History GI Surgical History: Bowel Surgery, Cholecystectomy Genitourinary Surgical Hx: Other Musculskeletal Surgical Hx: No Pertinent History Female Surgical History: Hysterectomy Other Surgical History: has 120 cm of small bowel, urostomy following compications after surgery to remove adhesions - Social History Smoking Status: Former smoker How long have you smoked: 20 years Exposure to second hand smoke: No Alcohol: None Drug Use: none - Physical Exam Vital Signs: Vital Signs - 24 hr Temp Pulse Resp BP Pulse Ox 07/21/19 07:20 98 F 78 18 105/66 96 07/21/19 07:11 98.0 F 78 18 105/66 96 07/21/19 06:40 82 15 97/72 95 07/21/19 06:33 97 07/21/19 05:50 80 16 94/59 94 L 07/21/19 04:14 98.1 F 83 18 128/88 97 General Appearance: mild distress, alert Neurologic Exam: oriented x 3, cooperative Eye Exam: eyes nml inspection Ears, Nose, Throat Exam: moist mucous membranes Neck Exam: normal inspection Respiratory Exam: normal breath sounds, lungs clear, No crackles/rales, No rhonchi, No wheezing Cardiovascular Exam: regular rate/rhythm, normal heart sounds, No murmur Gastrointestinal/Abdomen Exam: soft, tenderness (LLQ, LUQ, epigastrum), guarding , No normal bowel sounds (hypoactive), No rebound Back Exam: normal inspection, CVA tenderness (on L, marked), No rash Extremity Exam: No pedal edema, No swelling Skin Exam: normal color, warm, dry, No rash Results - Labs Lab/Micro Results: Lab Results-Last 24 Hours 07/21/19 07/21/19 07/21/19 Range/Units 04:50 04:51 04:51 WBC 9.4 (4.0-10.5) K/mm3 RBC 4.19 (4.1-5.4) M/mm3 Hgb 12.7 (12.0-16.0) gm/dl Hct 38.3 (35-47) % MCV 91.4 (78-100) fl MCH 30.3 (26-32) pg MCHC 33.2 (32-36) g/dl RDW 14.4 H (11.5-14.0) % Plt Count 253 (150-450) K/mm3 MPV 10.1 H (6-9.5) fl Gran % 60.9 (36.0-66.0) % Eos # (Auto) 0.37 (0-0.5) Absolute Lymphs (auto) 2.58 (1.0-4.6) Absolute Monos (auto) 0.66 (0.0-1.3) Lymphocytes % 27.6 (24.0-44.0) % Monocytes % 7.1 (0.0-12.0) % Eosinophils % 4.0 (0.00-5.0) % Basophils % 0.4 (0.0-0.4) % Absolute Granulocytes 5.71 (1.4-6.9) Basophils # 0.04 (0-0.4) PT (9.95-12.35) SECONDS INR (0.8-3.0) Sodium 136 L (137-145) mmol/L Potassium 3.8 (3.5-5.1) mmol/L Chloride 98 (98-107) mmol/L Carbon Dioxide 27 (22-30) mmol/L Anion Gap 14.0 (5-15) MEQ/L BUN 24 H (7-17) mg/dL Creatinine 1.23 H (0.52-1.04) mg/dL Estimated GFR 48.4 ML/MIN Glucose 88 (74-106) mg/dL Lactic Acid 1.5 (0.4-2.0) Calcium 9.3 (8.4-10.2) mg/dL Total Bilirubin 0.50 (0.2-1.3) mg/dL AST 33 (14-36) U/L ALT 49 H (0-35) U/L Alkaline Phosphatase 122 (38-126) U/L Serum Total Protein 8.0 (6.3-8.2) g/dL Albumin 4.5 (3.5-5.0) g/dL Amylase 142 H (30-110) U/L Lipase 623 H (23-300) U/L Urine Color (YELLOW) Urine Appearance (CLEAR) Urine pH (5-6) Ur Specific [place] (1.005-1.025) Urine Protein (Negative) Urine Ketones (NEGATIVE) Urine Blood (0-5) Gregg/ul Urine Nitrite (NEGATIVE) Urine Bilirubin (NEGATIVE) Urine Urobilinogen (0-1) mg/dL Ur Leukocyte Esterase (NEGATIVE) Urine WBC (Auto) (0-5) /HPF Urine RBC (Auto) (0-2) /HPF U Epithel Cells (Auto) (FEW) /HPF Urine Bacteria (Auto) (NEGATIVE) /HPF Urine Mucus (Auto) (NEGATIVE) /HPF Urine Culture Reflexed (NO) Urine Glucose (NEGATIVE) mg/dL 07/21/19 07/21/19 Range/Units 04:51 04:58 WBC (4.0-10.5) K/mm3 RBC (4.1-5.4) M/mm3 Hgb (12.0-16.0) gm/dl Hct (35-47) % MCV (78-100) fl MCH (26-32) pg MCHC (32-36) g/dl RDW (11.5-14.0) % Plt Count (150-450) K/mm3 MPV (6-9.5) fl Gran % (36.0-66.0) % Eos # (Auto) (0-0.5) Absolute Lymphs (auto) (1.0-4.6) Absolute Monos (auto) (0.0-1.3) Lymphocytes % (24.0-44.0) % Monocytes % (0.0-12.0) % Eosinophils % (0.00-5.0) % Basophils % (0.0-0.4) % Absolute Granulocytes (1.4-6.9) Basophils # (0-0.4) PT 10.5 (9.95-12.35) SECONDS INR 0.93 (0.8-3.0) Sodium (137-145) mmol/L Potassium (3.5-5.1) mmol/L Chloride (98-107) mmol/L Carbon Dioxide (22-30) mmol/L Anion Gap (5-15) MEQ/L BUN (7-17) mg/dL Creatinine (0.52-1.04) mg/dL Estimated GFR ML/MIN Glucose (74-106) mg/dL Lactic Acid (0.4-2.0) Calcium (8.4-10.2) mg/dL Total Bilirubin (0.2-1.3) mg/dL AST (14-36) U/L ALT (0-35) U/L Alkaline Phosphatase (38-126) U/L Serum Total Protein (6.3-8.2) g/dL Albumin (3.5-5.0) g/dL Amylase (30-110) U/L Lipase (23-300) U/L Urine Color CARMEN (YELLOW) Urine Appearance CLOUDY (CLEAR) Urine pH 6.0 (5-6) Ur Specific [place] 1.022 (1.005-1.025) Urine Protein >=500 (Negative) Urine Ketones NEGATIVE (NEGATIVE) Urine Blood LARGE (0-5) Gregg/ul Urine Nitrite POSITIVE (NEGATIVE) Urine Bilirubin NEGATIVE (NEGATIVE) Urine Urobilinogen 4 (0-1) mg/dL Ur Leukocyte Esterase TRACE (NEGATIVE) Urine WBC (Auto) >100 (0-5) /HPF Urine RBC (Auto) >101 (0-2) /HPF U Epithel Cells (Auto) NONE (FEW) /HPF Urine Bacteria (Auto) MODERATE (NEGATIVE) /HPF Urine Mucus (Auto) SLIGHT (NEGATIVE) /HPF Urine Culture Reflexed YES (NO) Urine Glucose NEGATIVE (NEGATIVE) mg/dL - Radiology Impressions Radiology Exams & Impressions: Radiology Procedures Category Date Time Status ABDOMEN AND PELVIS W/0 CONTRAS [CT] Stat Exams 07/21/19 04:43 Taken Assessment/Plan (1) UTI (urinary tract infection) Current Visit: Yes Status: Acute Qualifiers: Urinary tract infection type: catheter-associated UTI Indwelling urinary catheter type: unspecified Encounter type: initial encounter Qualified Code( s): T83.511A - Infection and inflammatory reaction due to indwelling urethral catheter, initial encounter; N39.0 - Urinary tract infection, site not specified Assessment & Plan: On rocephin IV, ucx pending Code(s): N39.0 - URINARY TRACT INFECTION, SITE NOT SPECIFIED (2) Pancreatitis Current Visit: Yes Status: Acute Qualifiers: Chronicity: acute Pancreatitis type: unspecified pancreatitis type Acute pancreatitis complication: no infection or necrosis Qualified Code(s): K85.90 - Acute pancreatitis without necrosis or infection, unspecified Assessment & Plan: On IV fluids. Recheck labs in a.m. Code(s): K85.90 - ACUTE PANCREATITIS WITHOUT NECROSIS OR INFECTION, UNSP (3) Hydronephrosis Current Visit: Yes Status: Acute Qualifiers: Hydronephrosis type: unspecified Qualified Code(s): N13.30 - Unspecified hydronephrosis Assessment & Plan: Unsure the etiology, although I suspect it is related to inflammation/bladder infection. If still painful in 2d would do u/s renal to recheck. Pt has never had renal stone. Code(s): N13.30 - UNSPECIFIED HYDRONEPHROSIS (4) Abdominal pain Current Visit: No Status: Acute Onset Date: ~07/17/18 Qualifiers: Abdominal location: epigastric Qualified Code(s): R10.13 - Epigastric pain Code(s): R10.9 - UNSPECIFIED ABDOMINAL PAIN (5) Elevated LFTs Current Visit: No Status: Chronic Code(s): R94.5 - ABNORMAL RESULTS OF LIVER FUNCTION STUDIES (6) Chronic kidney disease (CKD) stage G3a/A1, moderately decreased glomerular filtration rate (GFR) between 45-59 mL/min/1.73 square meter and albuminuria creatinine ratio less than 30 mg/g Current Visit: No Status: Chronic Code(s): N18.3 - CHRONIC KIDNEY DISEASE, STAGE 3 (MODERATE)
--- NOTE | 2019-07-21 09:07 | XRAY ---
Indication: Left lower quadrant/flank pain with hematuria, nausea, and vomiting. Elevated amylase/lipase. Multiple contiguous axial images obtained through the abdomen and pelvis without contrast as ordered. Comparison: April 12, 2019. Lung bases again demonstrates bilateral dependent atelectasis. No infiltrate or effusion. Heart is not enlarged. Noncontrasted stomach and bowel loops appear nonobstructed. Stable colectomy with right lower quadrant colostomy, cholecystectomy, and hysterectomy. No free fluid/air. New mildly hydronephrotic left kidney and left ureter dilatation up to 8-9 mm. No calculus in either system. Stable suprapubic catheter. Remaining liver, pancreas, spleen, adrenal glands, kidneys, ureters, and bladder appear unremarkable for noncontrast exam. Aorta is normal in course and caliber with minimal calcification. Osseous structures intact. Impression: 1. New left-sided hydronephrosis and hydroureter without calculus. Query recent passage of calculus versus distal obstruction unrelated to calculus. 2. Stable postoperative changes. 3. Remaining CT abdomen/pelvis without contrast exam is negative. Comment: Preliminary interpretation was made by [facility]. No critical discrepancy. CT DI 4.62
[2019-07-21] MEDS ORDERED: MORPHINE SULFATE 10 MG/ML IV PRN (09:14)
[2019-07-21] MEDS: Zofran 4 MG/2 ML VIAL IV PRN ×2 (09:30→17:27)
[2019-07-21] MEDS: PROTONIX 40 MG IV IV SCH (09:32)
[2019-07-21] MEDS ORDERED: Ventolin Hfa MDI IH PRN (09:39)
[2019-07-21] MEDS ORDERED: Aldactone 25 MG PO PRN (09:39)
[2019-07-21] MEDS ORDERED: IMODIUM 2 MG PO PRN (09:45)
[2019-07-21] MEDS ORDERED: LIPASE PO SCH (10:00)
[2019-07-21] MEDS ORDERED: PROTEASE PO SCH (10:00)
[2019-07-21] MEDS ORDERED: NON-FORMULARY ITEM (Solifenacin Succinate [Vesicare] 10 MG) PO SCH (10:00)
[2019-07-21] MEDS ORDERED: LYRICA 75 MG CAP PO SCH (10:00)
[2019-07-21] MEDS ORDERED: AMYLASE PO SCH (10:00)
[2019-07-21] MEDS ORDERED: PROVENTIL COMMON CANISTER IH PRN (10:15)
[2019-07-21] MEDS ORDERED: MEDICATION INTERVENTION MC SCH ×3 (10:15→10:30)
[2019-07-21] MEDS: BUSPAR 5 MG PO SCH ×3 (10:44→21:18)
[2019-07-21] MEDS: Reglan 10 MG PO SCH (10:44)
[2019-07-21] MEDS: PANCRELIPASE DR 5,000 UNIT CAP PO SCH ×2 (10:45→16:10)
[2019-07-21] MEDS: PATIENT OWN MEDICATION PO SCH ×4 (10:45→21:18)
[2019-07-21] MEDS: LYRICA 100MG PO SCH ×2 (10:47→21:18)
[2019-07-21] MEDS: BENADRYL 25 MG CAPSULE PO PRN ×3 (11:28→19:36)
[2019-07-21] MEDS: DILAUDID 2 MG INJECTION IV PRN ×6 (11:28→21:36)
[2019-07-21] MEDS: ZOLOFT 50 MG TABLET PO SCH (21:18)
[2019-07-21] MEDS ORDERED: MELATONIN 20 MG PO SCH (22:00)
[2019-07-21] MEDS ORDERED: BREXPIPRAZOLE 2 MG PO SCH (22:00)
[2019-07-21] MEDS ORDERED: NON-FORMULARY ITEM (Sertraline Hcl [Zoloft] 200 MG) PO SCH (22:00)
[2019-07-22] MEDS: DILAUDID 2 MG INJECTION IV PRN ×3 (02:20→08:38)
[2019-07-22] MEDS: BENADRYL 25 MG CAPSULE PO PRN ×5 (02:21→20:24)
[2019-07-22] MEDS: Sodium Chloride 0.9% 1000 ML 1,000 ML IV SCH ×4 (02:21→20:23)
[2019-07-22] MEDS: Zofran 4 MG/2 ML VIAL IV PRN ×3 (07:56→20:37)
[2019-07-22] MEDS: PANCRELIPASE DR 5,000 UNIT CAP PO SCH ×3 (07:57→15:58)
--- NOTE | 2019-07-22 08:58 | PCM.NOTE ---
Date and Time: 07/22/19852 Subjective Assessment: Pt still having 9/10 L sided pain this morning, has been 2h since her dilaudid dose. She has been receiving it fairly regularly. She notes her urine is still dark. Labs are pending this morning. - Review of Systems Constitutional: No Fever Abdominal/Gastrointestinal: Abdominal Pain Objective Exam General Appearance: mild distress, alert Neurologic Exam: oriented x 3, cooperative Skin Exam: normal color, warm, dry, No rash Eye Exam: eyes nml inspection Neck Exam: normal inspection Respiratory Exam: normal breath sounds, lungs clear, No crackles/rales, No rhonchi, No wheezing Cardiovascular Exam: regular rate/rhythm, normal heart sounds, No murmur Gastrointestinal/Abdomen Exam: soft, tenderness (marked in LUQ, LLQ, epigastrum) , guarding, No normal bowel sounds (hypoactive), No distention, No mass, No rebound Extremity Exam: swelling (mild edema of hands bilat. no pitting pretibial edema. ) Back Exam: normal inspection, No rash OBJECTIVE DATA Vital Signs: Vital Signs - 24 hr Temp Pulse Resp BP Pulse Ox 07/22/19 07:13 98.2 F 78 20 98/54 93 L 07/22/19 06:52 92 L 07/22/19 05:15 18 07/22/19 03:49 97.9 F 63 18 94/52 94 L 07/22/19 02:00 16 07/21/19 22:00 14 07/21/19 19:37 97.9 F 66 18 94/52 97 07/21/19 19:27 71 18 95 07/21/19 18:00 18 07/21/19 16:00 97.5 F 76 19 97/61 96 07/21/19 14:00 18 07/21/19 11:52 97.9 F 74 19 100/54 74 L 07/21/19 11:24 67 16 97 07/21/19 11:23 67 16 97 Pain Assessment - Last Documented Pain Intensity 9 Pain Scale Used 0-10 Pain Scale Intake and Output: Intake & Output 07/19/19 07/20/19 07/21/19 07/22/19 11:59 11:59 11:59 11:59 Intake Total 2577 Output Total 2500 Balance 77 Weight 48.77 kg Radiology Exams: Radiology Procedures Category Date Time Status ABDOMEN AND PELVIS W/0 CONTRAS [CT] Stat Exams 07/21/19 04:43 Completed KIDNEY [US] Routine Exams 07/22/19 Ordered Assessment/Plan (1) UTI (urinary tract infection) Current Visit: Yes Status: Acute Qualifiers: Urinary tract infection type: catheter-associated UTI Indwelling urinary catheter type: unspecified Encounter type: initial encounter Qualified Code( s): T83.511A - Infection and inflammatory reaction due to indwelling urethral catheter, initial encounter; N39.0 - Urinary tract infection, site not specified Assessment & Plan: on IV rocephin; urine culture pending. Code(s): N39.0 - URINARY TRACT INFECTION, SITE NOT SPECIFIED (2) Pancreatitis Current Visit: Yes Status: Acute Qualifiers: Chronicity: acute Pancreatitis type: unspecified pancreatitis type Acute pancreatitis complication: no infection or necrosis Qualified Code(s): K85.90 - Acute pancreatitis without necrosis or infection, unspecified Assessment & Plan: labs pending. Has chronic pancreatitis, on creon, sees Dr. Castle. Her amylase /lipase are not usually elevated but with this exacerbation they were. Code(s): K85.90 - ACUTE PANCREATITIS WITHOUT NECROSIS OR INFECTION, UNSP (3) Hydronephrosis Current Visit: Yes Status: Acute Qualifiers: Hydronephrosis type: unspecified Qualified Code(s): N13.30 - Unspecified hydronephrosis Assessment & Plan: rechecking u/s today Code(s): N13.30 - UNSPECIFIED HYDRONEPHROSIS (4) Abdominal pain Current Visit: No Status: Acute Onset Date: ~07/17/18 Qualifiers: Abdominal location: epigastric Qualified Code(s): R10.13 - Epigastric pain Code(s): R10.9 - UNSPECIFIED ABDOMINAL PAIN (5) Elevated LFTs Current Visit: No Status: Chronic Code(s): R94.5 - ABNORMAL RESULTS OF LIVER FUNCTION STUDIES (6) Chronic kidney disease (CKD) stage G3a/A1, moderately decreased glomerular filtration rate (GFR) between 45-59 mL/min/1.73 square meter and albuminuria creatinine ratio less than 30 mg/g Current Visit: No Status: Chronic Assessment & Plan: chronically on IV fluids 2-3x/wk, sees Dr. Orourke. Chronically low on Mg and potassium; I expect to have to replete her Mg today after lab results are in. Code(s): N18.3 - CHRONIC KIDNEY DISEASE, STAGE 3 (MODERATE)
[2019-07-22] MEDS: ROCEPHIN 1 Gm-D5w 50 ml Bag** 1 G/50 ML IVPB IV SCH (09:20)
[2019-07-22] MEDS: DILAUDID 1 MG/1ML PCA IV PRN (10:18)
[2019-07-22] MEDS: BUSPAR 5 MG PO SCH ×3 (10:56→21:06)
[2019-07-22 10:57] LABS: Mean Cell Volume 97.3 fl (78-100); Mean Corpuscular Hemoglobin 30.4 pg (26-32); Mean Corpuscular Hgb Concent. 31.3 g/dl (32-36); Mean Platelet Volume 10.2 fl (6-9.5); Platelet Count 232 K/mm3 (150-450); Red Blood Count 3.29 M/mm3 (4.1-5.4); Red Cell Distribution Width 14.7 % (11.5-14.0); White Blood Count 6.1 K/mm3 (4.0-10.5)
[2019-07-22] MEDS: PROTONIX 40 MG IV IV SCH (10:57)
[2019-07-22] MEDS: LYRICA 100MG PO SCH ×2 (10:57→21:06)
[2019-07-22] MEDS: PATIENT OWN MEDICATION PO SCH ×4 (10:58→21:06)
[2019-07-22 11:03] LABS: ALBUMIN 3.1 g/dL (3.5-5.0); ALKALINE PHOSPHATASE 85 U/L (38-126); AMYLASE 88 U/L (30-110); ANION GAP 8.8 MEQ/L (5-15); BLOOD UREA NITROGEN 9 mg/dL (7-17); CHLORIDE 110 mmol/L (98-107); Calcium 8.1 mg/dL (8.4-10.2); Carbon Dioxide 24 mmol/L (22-30); Creatinine 1 0.86 mg/dL (0.52-1.04); Glucose 88 mg/dL (74-106); LIPASE 341 U/L (23-300); MAGNESIUM 1.3 mg/dL (1.6-2.3); Potassium 4.9 mmol/L (3.5-5.1); SGOT/AST 25 U/L (14-36); SGPT/ALT 31 U/L (0-35); SODIUM 138 mmol/L (137-145); Total Protein 5.9 g/dL (6.3-8.2)
[2019-07-22] MEDS: Reglan 10 MG PO SCH (11:03)
--- NOTE | 2019-07-22 11:09 | XRAY ---
Indication: Abdominal pain. Left hydronephrosis on CT one day earlier. Two-dimensional renal sonogram performed. Comparison: None Right kidney measures 9.7 x 3.5 x 5.3 cm and the left measures 8.5 x 4.2 x 3.5 cm. There is a 2.5 x 1.9 x 1.2 cm right upper pole cyst. No other solid/cystic renal mass or hydronephrosis in either kidneys. Cortical medullary differentiation preserved. Urinary bladder is empty via suprapubic catheter. Impression: Right renal cyst. Remaining renal sonogram is negative.
[2019-07-22] MEDS: Magnesium 1 Gm / 100 Ml D5W*** 100 ML IV SCH ×2 (12:37→13:11)
[2019-07-22] MEDS: ZOLOFT 50 MG TABLET PO SCH (21:06)
[2019-07-22] MEDS: Monistat 7 VG SCH (21:06)
[2019-07-23] MEDS: BENADRYL 25 MG CAPSULE PO PRN ×5 (00:40→22:05)
[2019-07-23] MEDS: Zofran 4 MG/2 ML VIAL IV PRN ×3 (02:43→19:00)
[2019-07-23 05:08] LABS: Hematocrit 27.8 % (35-47); Hemoglobin 8.7 gm/dl (12.0-16.0); Mean Cell Volume 97.2 fl (78-100); Mean Corpuscular Hemoglobin 30.4 pg (26-32); Mean Corpuscular Hgb Concent. 31.3 g/dl (32-36); Mean Platelet Volume 10.1 fl (6-9.5); Platelet Count 218 K/mm3 (150-450); Red Blood Count 2.86 M/mm3 (4.1-5.4); Red Cell Distribution Width 14.7 % (11.5-14.0); White Blood Count 4.4 K/mm3 (4.0-10.5)
[2019-07-23 05:51] LABS: ALBUMIN 2.9 g/dL (3.5-5.0); ALKALINE PHOSPHATASE 95 U/L (38-126); AMYLASE 86 U/L (30-110); ANION GAP 9.1 MEQ/L (5-15); BLOOD UREA NITROGEN 4 mg/dL (7-17); CHLORIDE 110 mmol/L (98-107); Carbon Dioxide 23 mmol/L (22-30); Creatinine 1 0.87 mg/dL (0.52-1.04); Glucose 87 mg/dL (74-106); LIPASE 214 U/L (23-300); MAGNESIUM 1.6 mg/dL (1.6-2.3); Potassium 4.5 mmol/L (3.5-5.1); SGOT/AST 30 U/L (14-36); SGPT/ALT 29 U/L (0-35); SODIUM 137 mmol/L (137-145); Total Protein 5.7 g/dL (6.3-8.2)
[2019-07-23] MEDS: PANCRELIPASE DR 5,000 UNIT CAP PO SCH ×3 (08:43→16:16)
[2019-07-23] MEDS: PROTONIX 40 MG IV IV SCH (08:43)
[2019-07-23] MEDS ORDERED: Sodium Chloride 0.9% 1000 ML 1,000 ML IV SCH (09:15)
[2019-07-23] MEDS: BUSPAR 5 MG PO SCH ×3 (09:35→22:05)
[2019-07-23] MEDS: Reglan 10 MG PO SCH (09:35)
[2019-07-23] MEDS: LYRICA 100MG PO SCH ×2 (09:35→22:05)
[2019-07-23] MEDS: PATIENT OWN MEDICATION PO SCH ×5 (09:36→22:12)
[2019-07-23] MEDS: ROCEPHIN 1 Gm-D5w 50 ml Bag** 1 G/50 ML IVPB IV SCH (09:39)
[2019-07-23] MEDS ORDERED: PHARMACY DOSING REQUEST MC ONE ×2 (13:53→13:55)
--- NOTE | 2019-07-23 14:56 | PCM.NOTE ---
Date and Time: 07/23/19 1450 Subjective Assessment: Patient c/o tenderness in the skin left side and back ,burning pain.Hx shingles ?on the other side in the past.Is ready to try soft diet,appetite is improving. Patient states her SO has Norovirus and she wants to be tested. - Review of Systems Constitutional: Fatigue Respiratory: No Cough, No Short Of Breath Cardiac: Edema (hands started to swell and nurse phoned to state swelling from IV hydration and patient is taking oral liquids so Iv rate slowed), No Chest Pain, No Syncope Abdominal/Gastrointestinal: Other (see HPI) Genitourinary Symptoms: Other (no dysuria) Objective Exam General Appearance: no apparent distress, other (appears chronically ill,pale) Neurologic Exam: alert, oriented x 3, cooperative Skin Exam: warm, dry, pale Neck Exam: normal inspection Respiratory Exam: normal breath sounds, lungs clear, No respiratory distress Cardiovascular Exam: regular rate/rhythm, normal heart sounds Gastrointestinal/Abdomen Exam: soft (colostomy), tenderness (tenderness seems more at the skin level along left mid torso /flank where there are 3 linear dried vesicles-patient states this is where her pain is today) OBJECTIVE DATA Vital Signs: Vital Signs - 24 hr Temp Pulse Resp BP Pulse Ox 07/23/19 12:00 98.6 F 79 16 103/54 93 L 07/23/19 10:49 80 16 94 L 07/23/19 10:30 91 L 07/23/19 06:45 90 L 07/23/19 05:16 16 07/23/19 05:00 98.8 F 76 16 108/65 90 L 07/23/19 04:00 90 L 07/23/19 01:17 18 07/23/19 01:04 74 100/72 07/23/19 00:00 98.1 F 76 18 83/56 93 L 07/22/19 22:00 20 07/22/19 20:14 77 20 93 L 07/22/19 20:00 95 07/22/19 19:35 98.1 F 84 17 112/58 95 07/22/19 18:00 18 07/22/19 17:00 96 07/22/19 16:52 98.2 F 82 18 117/55 96 Pain Assessment - Last Documented Pain Intensity 6 Pain Scale Used 0-10 Pain Scale Intake and Output: Intake & Output 07/21/19 07/22/19 07/23/19 07/24/19 11:59 11:59 11:59 11:59 Intake Total 2698 3843 Output Total 1098 2900 Balance 197 943 Weight 48.77 kg 73.6 kg Lab Results: Lab Results-Last 24 Hours 07/23/19 07/23/19 07/23/19 Range/Units 04:30 04:30 09:39 WBC 4.4 (4.0-10.5) K/mm3 RBC 2.86 L (4.1-5.4) M/mm3 Hgb 8.7 L (12.0-16.0) gm/dl Hct 27.8 L (35-47) % MCV 97.2 (78-100) fl MCH 30.4 (26-32) pg MCHC 31.3 L (32-36) g/dl RDW 14.7 H (11.5-14.0) % Plt Count 218 (150-450) K/mm3 MPV 10.1 H (6-9.5) fl Sodium 137 (137-145) mmol/L Potassium 4.5 (3.5-5.1) mmol/L Chloride 110 H (98-107) mmol/L Carbon Dioxide 23 (22-30) mmol/L Anion Gap 9.1 (5-15) MEQ/L BUN 4 L (7-17) mg/dL Creatinine 0.87 (0.52-1.04) mg/dL Estimated GFR > 60.0 ML/MIN Glucose 87 (74-106) mg/dL Calcium 8.0 L (8.4-10.2) mg/dL Magnesium 1.6 (1.6-2.3) mg/dL Total Bilirubin 0.20 (0.2-1.3) mg/dL AST 30 (14-36) U/L ALT 29 (0-35) U/L Alkaline Phosphatase 95 (38-126) U/L Serum Total Protein 5.7 L (6.3-8.2) g/dL Albumin 2.9 L (3.5-5.0) g/dL Amylase 86 (30-110) U/L Lipase 214 (23-300) U/L Stool Occult Blood NEGATIVE (Negative) Radiology Exams: Radiology Procedures Category Date Time Status KIDNEY [US] Routine Exams 07/22/19 09:56 Completed Assessment/Plan (1) Shingles rash Current Visit: Yes Status: Acute Assessment & Plan: culture of ulcer cluster left mid torso,start IV antiviral Code(s): B02.9 - ZOSTER WITHOUT COMPLICATIONS (2) Pancreatitis Current Visit: Yes Status: Acute Qualifiers: Chronicity: acute Pancreatitis type: unspecified pancreatitis type Acute pancreatitis complication: no infection or necrosis Qualified Code(s): K85.90 - Acute pancreatitis without necrosis or infection, unspecified Assessment & Plan: acute and chronic-improving ,able to increase diet. Code(s): K85.90 - ACUTE PANCREATITIS WITHOUT NECROSIS OR INFECTION, UNSP (3) Anemia Current Visit: No Status: Acute Assessment & Plan: hemetest stool ,follow H/H Code(s): D64.9 - ANEMIA, UNSPECIFIED
[2019-07-23] MEDS: D5W MINI IV SCH ×2 (15:59→22:04)
[2019-07-23] MEDS: ZOVIRAX IV SCH ×2 (15:59→22:04)
[2019-07-23 16:14] LABS: Adenovirus F 40/41 NEGATIVE (NEGATIVE); Astrovirus NEGATIVE (NEGATIVE); C. Difficile Organism NEGATIVE (NEGATIVE); Campylobacter NEGATIVE (NEGATIVE); Cryptosporidium NEGATIVE (NEGATIVE); Cyclospora cayentanensis NEGATIVE (NEGATIVE); Entamoeaba histolytica NEGATIVE (NEGATIVE); Enteroaggregative E.coli NEGATIVE (NEGATIVE); Enteropathogenic E.coli NEGATIVE (NEGATIVE); Enterotoxigenic E.coli NEGATIVE (NEGATIVE); Giardia lamblia NEGATIVE (NEGATIVE); Norovirus GI/GII NEGATIVE (NEGATIVE); Plesiomonas shigelloides NEGATIVE (NEGATIVE); Rotavirus A NEGATIVE (NEGATIVE); Salmonella NEGATIVE (NEGATIVE); Sapovirus NEGATIVE (NEGATIVE); Shiga-like toxin prod.E.coli NEGATIVE (NEGATIVE); Vibrio NEGATIVE (NEGATIVE); Vibrio cholerae NEGATIVE (NEGATIVE); Yersinia enterocolitica NEGATIVE (NEGATIVE)
[2019-07-23] MEDS: ZOLOFT 50 MG TABLET PO SCH (22:05)
[2019-07-23] MEDS: Monistat 7 VG SCH (22:06)
[2019-07-23] MEDS: DILAUDID 1 MG/1ML PCA IV PRN (23:26)
[2019-07-24] MEDS: D5W MINI IV SCH ×3 (05:49→21:25)
[2019-07-24] MEDS: ZOVIRAX IV SCH ×3 (05:49→21:25)
[2019-07-24] MEDS: DILAUDID 1 MG/1ML PCA IV PRN (06:32)
[2019-07-24] MEDS: Zofran 4 MG/2 ML VIAL IV PRN ×2 (07:24→12:34)
[2019-07-24] MEDS: BENADRYL 25 MG CAPSULE PO PRN ×4 (07:24→21:26)
[2019-07-24] MEDS: Sodium Chloride 0.9% 1000 ML 1,000 ML IV SCH ×2 (07:38→12:07)
[2019-07-24] MEDS: PANCRELIPASE DR 5,000 UNIT CAP PO SCH ×3 (08:14→16:22)
[2019-07-24] MEDS: PROTONIX 40 MG IV IV SCH (09:27)
[2019-07-24] MEDS: Reglan 10 MG PO SCH (09:27)
[2019-07-24] MEDS: BUSPAR 5 MG PO SCH ×3 (09:27→21:26)
[2019-07-24] MEDS: ROCEPHIN 1 Gm-D5w 50 ml Bag** 1 G/50 ML IVPB IV SCH (09:27)
[2019-07-24] MEDS: LYRICA 100MG PO SCH ×2 (09:27→21:25)
[2019-07-24] MEDS: PATIENT OWN MEDICATION PO SCH ×3 (09:28→21:25)
[2019-07-24 10:26] LABS: BASOPHIL % 0.6 % (0.0-0.4); Basophil (Absolute #) 0.03 (0-0.4); Eosinophil % 3.9 % (0.00-5.0); Hematocrit 33.4 % (35-47); Hemoglobin 10.5 gm/dl (12.0-16.0); Lymphocyte (Absolute #) 1.43 (1.0-4.6); Lymphocytes % 27.7 % (24.0-44.0); Mean Cell Volume 95.7 fl (78-100); Mean Corpuscular Hemoglobin 30.1 pg (26-32); Mean Corpuscular Hgb Concent. 31.4 g/dl (32-36); Monocytes % 5.8 % (0.0-12.0); Platelet Count 250 K/mm3 (150-450); Red Blood Count 3.49 M/mm3 (4.1-5.4); Red Cell Distribution Width 14.9 % (11.5-14.0); White Blood Count 5.2 K/mm3 (4.0-10.5)
[2019-07-24 10:31] LABS: ALBUMIN 3.3 g/dL (3.5-5.0); ALKALINE PHOSPHATASE 103 U/L (38-126); ANION GAP 12.6 MEQ/L (5-15); BLOOD UREA NITROGEN 4 mg/dL (7-17); CHLORIDE 107 mmol/L (98-107); Calcium 8.4 mg/dL (8.4-10.2); Carbon Dioxide 24 mmol/L (22-30); Creatinine 1 0.92 mg/dL (0.52-1.04); Glucose 109 mg/dL (74-106); Potassium 4.2 mmol/L (3.5-5.1); SGOT/AST 30 U/L (14-36); SGPT/ALT 29 U/L (0-35); SODIUM 140 mmol/L (137-145); Total Protein 6.2 g/dL (6.3-8.2)
[2019-07-24] MEDS ORDERED: Zofran 4 MG/2 ML VIAL IV PRN (12:39)
[2019-07-24] MEDS: Phenergan 25 MG INJ IV PRN (13:46)
[2019-07-24 15:39] LABS: Appearance CLEAR (CLEAR); Bacteria RARE /HPF (NEGATIVE); Bilirubin NEGATIVE (NEGATIVE); Blood MODERATE Ery/ul (0-5); Glucose NEGATIVE (NEGATIVE); Ketones NEGATIVE (NEGATIVE); Leukocyte Esterase TRACE (NEGATIVE); Mucus SLIGHT /HPF (NEGATIVE); Nitrite NEGATIVE (NEGATIVE); Protein,Urine Dip NEGATIVE (Negative); Specific Gravity 1.009 (1.005-1.025); Urobilinogen NEGATIVE mg/dL (0-1)
[2019-07-24] MEDS: ZOLOFT 50 MG TABLET PO SCH (21:26)
[2019-07-24] MEDS: Monistat 7 VG SCH (21:26)
[2019-07-25] MEDS: ZOVIRAX IV SCH (05:40)
[2019-07-25] MEDS: D5W MINI IV SCH (05:40)
[2019-07-25] MEDS: DILAUDID 1 MG/1ML PCA IV PRN ×2 (05:49→13:49)
[2019-07-25] MEDS: PANCRELIPASE DR 5,000 UNIT CAP PO SCH ×2 (08:33→12:04)
[2019-07-25] MEDS: PROTONIX 40 MG IV IV SCH (08:34)
[2019-07-25] MEDS: Reglan 10 MG PO SCH (10:02)
[2019-07-25] MEDS: ROCEPHIN 1 Gm-D5w 50 ml Bag** 1 G/50 ML IVPB IV SCH (10:02)
[2019-07-25] MEDS: Phenergan 25 MG INJ IV PRN (10:02)
[2019-07-25] MEDS: BUSPAR 5 MG PO SCH ×2 (10:03→15:33)
[2019-07-25] MEDS: LYRICA 100MG PO SCH (10:03)
[2019-07-25] MEDS: PATIENT OWN MEDICATION PO SCH ×3 (10:03→10:05)
[2019-07-25] MEDS ORDERED: Norco 10/325 MG Tablet PO PRN (12:10)
[2019-07-25 16:20] VITALS: BP 140/80; PULSE 81; O2SAT 96
== END 2019-07-25 15:45 | disposition home or self-care (01) | DRG 690 ==
LOC: ED 04:10 → MED SURG 07:09 → OBSVTOIN 08:59
PROVIDERS: ADMIT Family Medicine; ATTEND Family Medicine
DX: N39.0 Urinary tract infection, site not specified (principal); K86.1 Other chronic pancreatitis; K50.90 Crohn's disease, unspecified, without complications; N18.3 Chronic kidney disease, stage 3 (moderate); R11.2 Nausea with vomiting, unspecified; R10.32 Left lower quadrant pain; R53.1 Weakness; N13.30 Unspecified hydronephrosis; R94.5 Abnormal results of liver function studies; B02.9 Zoster without complications; D64.9 Anemia, unspecified; Z79.899 Other long term (current) drug therapy; Z93.3 Colostomy status
CPT/HCPCS: 36415; 74176; 76770; 80053; 81001; 82150; 82272; 83605; 83690; 83735; 85025; 85027; 85610; 87077; 87086; 87186; 87507; 87798; 94760; 96360; 96361; 96365; 96374; 96375; 96376; 99285; J0133; J0696; J1170; J1642; J2270; J2405; J2550; J3010; J3475; A9270-GY

== ENCOUNTER 2019-08-02 16:04 | Inpatient (IN) | payer MEDICARE ==
[2019-08-02 16:26] LABS: Absolute Neutrophil Ct (ANC) 7.44 (1.4-6.9); BASOPHIL % 0.7 % (0.0-0.4); Basophil (Absolute #) 0.08 (0-0.4); Eosinophil % 4.9 % (0.00-5.0); Hematocrit 46.6 % (35-47); Hemoglobin 15.9 gm/dl (12.0-16.0); Lymphocyte (Absolute #) 3.02 (1.0-4.6); Lymphocytes % 24.8 % (24.0-44.0); Mean Cell Volume 89.6 fl (78-100); Mean Corpuscular Hemoglobin 30.6 pg (26-32); Mean Corpuscular Hgb Concent. 34.1 g/dl (32-36); Mean Platelet Volume 9.6 fl (6-9.5); Monocyte (Absolute #) 1.02 (0.0-1.3); Monocytes % 8.4 % (0.0-12.0); Neutrophil % 61.2 % (36.0-66.0); Platelet Count 330 K/mm3 (150-450); Red Cell Distribution Width 15.5 % (11.5-14.0); White Blood Count 12.2 K/mm3 (4.0-10.5)
[2019-08-02 16:36] LABS: ALBUMIN 4.9 g/dL (3.5-5.0); ANION GAP 21.3 MEQ/L (5-15); BILIRUBIN,TOTAL 0.9 mg/dL (0.2-1.3); Calcium 9.6 mg/dL (8.4-10.2); Creatinine 1 1.37 mg/dL (0.52-1.04); Potassium 4.5 mmol/L (3.5-5.1); Total Protein 9.5 g/dL (6.3-8.2)
[2019-08-02 17:27] LABS: Appearance SLIGHTLY CLOUDY (CLEAR); Bacteria FEW /HPF (NEGATIVE); Bilirubin NEGATIVE (NEGATIVE); Blood MODERATE Ery/ul (0-5); Glucose NEGATIVE (NEGATIVE); Ketones NEGATIVE (NEGATIVE); Leukocyte Esterase MODERATE (NEGATIVE); Mucus SLIGHT /HPF (NEGATIVE); Nitrite NEGATIVE (NEGATIVE); Protein,Urine Dip 30 (Negative); Specific Gravity 1.019 (1.005-1.025); Urobilinogen NEGATIVE mg/dL (0-1)
[2019-08-02] MEDS ORDERED: Sodium Chloride 0.9% 1000 ML 1,000 ML ONE (23:34)
[2019-08-03] MEDS ORDERED: Sodium Chloride 0.9% 1000 ML 1,000 ML IV STA ×2 (00:07→08:42)
[2019-08-03] MEDS: DILAUDID 2 MG INJECTION IV PRN ×4 (00:09→09:34)
[2019-08-03] MEDS: Lactated Ringers 1,000 ML IV SCH ×3 (00:52→19:07)
[2019-08-03] MEDS: Zofran 4 MG/2 ML VIAL IV PRN ×3 (00:53→13:18)
[2019-08-03 06:00] LABS: Absolute Neutrophil Ct (ANC) 3.77 (1.4-6.9); BASOPHIL % 0.9 % (0.0-0.4); Basophil (Absolute #) 0.06 (0-0.4); Eosinophil % 5.7 % (0.00-5.0); Hematocrit 37.6 % (35-47); Hemoglobin 12.3 gm/dl (12.0-16.0); Lymphocyte (Absolute #) 2.17 (1.0-4.6); Lymphocytes % 30.8 % (24.0-44.0); Mean Cell Volume 93.1 fl (78-100); Mean Corpuscular Hemoglobin 30.4 pg (26-32); Mean Corpuscular Hgb Concent. 32.7 g/dl (32-36); Mean Platelet Volume 9.9 fl (6-9.5); Monocyte (Absolute #) 0.65 (0.0-1.3); Monocytes % 9.2 % (0.0-12.0); Neutrophil % 53.4 % (36.0-66.0); Platelet Count 288 K/mm3 (150-450); Red Blood Count 4.04 M/mm3 (4.1-5.4); Red Cell Distribution Width 15.5 % (11.5-14.0); White Blood Count 7.1 K/mm3 (4.0-10.5)
[2019-08-03 06:13] LABS: ANION GAP 11.5 MEQ/L (5-15); BILIRUBIN,TOTAL 0.5 mg/dL (0.2-1.3); Calcium 8.7 mg/dL (8.4-10.2); Creatinine 1 1.11 mg/dL (0.52-1.04); MAGNESIUM 2.1 mg/dL (1.6-2.3); Total Protein 7.1 g/dL (6.3-8.2)
--- NOTE | 2019-08-03 08:41 | PCM.HP ---
History of Present Illness - Chief Complaint Chief Complaint: Pancreatitis History of Present Illness: is a 54 year old female pt of mine from [facility] with PMHx Crohn's disease s/p colon resection with ileostomy, bladder damage resulting in suprapubic catheter, chronic renal failure, and chronic pancreatitis who was admitted directly last night by me for pancreatitis flair. She had been in hospital at [facility] before [facility] with pancreatitis (lipase elevated more than her usual) - was feeling better and discharged to home. She says now she never really got back to baseline from that. Had no fever, no vomiting at home. Pain is epigastrum/LUQ/LLQ, was 9/10 at admission, now 7/10 after pain meds. Pt notes she has been getting IV fluids only 2x/wk instead of 3x/wk recently. - Review of Systems Constitutional: Weakness Abdominal/Gastrointestinal: Abdominal Pain, Nausea All Other Systems: Reviewed and Negative Medications & Allergies Home Medications: Home Medication List Pregabalin [Lyrica] 100 mg PO BID 12/24/16 [History Confirmed 08/02/19] Heparin Flush 500 units/5 ml [Heparin Lock Flush 100 Units/ml 5ml Syringe] 500 units PORT FLUSH PRN PRN disp.syrin 08/10/17 [Rx Confirmed 08/02/19] Buspirone HCl 5 mg [Buspar 5 mg] 15 mg PO TID 01/09/18 [History Confirmed 08/02/19] Furosemide 40 mg [Lasix 40 MG] 40 mg PO DAILY PRN PRN 04/06/18 [History Confirmed 08/02/19] Esomeprazole Magnesium [Nexium] 40 mg PO DAILY 09/07/18 [History Confirmed 08/02] Spironolactone 25 mg [Aldactone 25 MG] 25 mg PO DAILY PRN PRN 09/23/18 [ History Confirmed 08/02/19] Sertraline HCl [Zoloft] 200 mg PO HS 11/06/18 [History Confirmed 08/02/19] Brexpiprazole [Rexulti] 2 mg PO HS 12/11/18 [History Confirmed 08/02/19] Solifenacin Succinate [Vesicare] 10 mg PO DAILY 01/05/19 [History Confirmed ] Mirabegron [Myrbetriq] 50 mg PO DAILY 02/26/19 [History Confirmed 08/02/19] Melatonin 20 mg PO HS 02/27/19 [History Confirmed 08/02/19] Omeprazole 40 mg PO DAILY 02/27/19 [History Confirmed 08/02/19] Albuterol Sulfate [Ventolin Hfa] 90 mcg IH Q4HPRN PRN 04/12/19 [History Confirmed 08/02/19] Vortioxetine Hydrobromide [Trintellix] 20 mg PO HS 04/12/19 [History Confirmed 08/02/19] Lipase/Protease/Amylase [Concepcion Teran 24,000 Units Capsule] 2 tab PO TID 06/21/19 [ History Confirmed 08/02/19] Hydrocodone/APAP 10/325 mg [[place] 10/325 MG Tablet] 1 tab PO QID PRN PRN tablet 07/25/19 [Rx Confirmed 08/02/19] Promethazine HCl 25 mg [Phenergan 25 mg] 25 mg PO QIDPRN PRN #60 07/25/19 [Rx Confirmed 08/02/19] Allergies/Adverse Reactions: Allergies Allergy/AdvReac Type Severity Reaction Status Date / Time oxybutynin Allergy Severe Verified 07/21/19 04:30 oxycodone [From Percocet] Allergy Intermediate Hives Verified 07/21/19 04:30 ampicillin Allergy Mild Verified 07/21/19 04:30 erythromycin base Allergy Mild Verified 07/21/19 04:30 [Erythromycin Base] duloxetine HCl Allergy Unknown Tightness Verified 07/21/19 04:30 [From Cymbalta] of Throat - Past Medical History Past Medical History: Yes Neurological History: Peripheral Neuropathy ENT History: No Pertinent History Cardiac History: No Pertinent History Respiratory History: No Pertinent History Endocrine Medical History: Adrenal Insufficiency, Other Musculoskelatal History: Osteoarthritis GI Medical History: Crohns Disease, Pancreatitis, Other History: Renal Disease, Other Pyscho-Social History: Anxiety, Depression Reproductive Disorders: Other Comment: Pt had surgery for ahdesions in the gut and had complications. She has a colostomy and superpubic cather. Pt gets infusions with potassium and magnesium - Female History Are you now?: No - Past Surgical History Past Surgical History: Yes (ileostomy, suprapubic catheter) Neuro Surgical History: No Pertinent History Cardiac History: No Pertinent History Respiratory Surgery: No Pertinent History GI Surgical History: Bowel Surgery, Cholecystectomy Genitourinary Surgical Hx: Other Musculskeletal Surgical Hx: No Pertinent History Female Surgical History: Hysterectomy Other Surgical History: has 120 cm of small bowel, urostomy following compications after surgery to remove adhesions - Social History Smoking Status: Former smoker How long have you smoked: 20 years Exposure to second hand smoke: No Alcohol: None Drug Use: none - Physical Exam Vital Signs: Vital Signs - 24 hr Temp Pulse Resp BP Pulse Ox 08/03/19 04:00 97.8 F 89 16 110/63 96 08/03/19 00:00 98 F 83 20 94/61 95 08/02/19 23:12 98.1 F 96 H 16 120/71 96 08/02/19 22:40 98.1 F 96 H 120/71 96 General Appearance: mild distress, alert Neurologic Exam: oriented x 3, cooperative Eye Exam: eyes nml inspection Ears, Nose, Throat Exam: moist mucous membranes Neck Exam: normal inspection, non-tender, No lymphadenopathy Respiratory Exam: normal breath sounds, lungs clear, No crackles/rales, No rhonchi, No wheezing Cardiovascular Exam: regular rate/rhythm, normal heart sounds, No murmur Gastrointestinal/Abdomen Exam: soft, tenderness (epigastrum, LUQ, LLQ), guarding , No normal bowel sounds (hypoactive), No distention, No mass, No rebound Back Exam: normal inspection, No rash Extremity Exam: No pedal edema, No swelling Skin Exam: normal color, warm, dry, No rash Results - Labs Lab/Micro Results: Lab Results-Last 24 Hours 08/02/19 08/02/19 08/02/19 Range/Units 16:12 16:12 16:12 WBC 12.2 H (4.0-10.5) K/mm3 RBC 5.20 (4.1-5.4) M/mm3 Hgb 15.9 (12.0-16.0) gm/dl Hct 46.6 (35-47) % MCV 89.6 (78-100) fl MCH 30.6 (26-32) pg MCHC 34.1 (32-36) g/dl RDW 15.5 H (11.5-14.0) % Plt Count 330 (150-450) K/mm3 MPV 9.6 H (6-9.5) fl Gran % 61.2 (36.0-66.0) % Eos # (Auto) 0.60 H (0-0.5) Absolute Lymphs (auto) 3.02 (1.0-4.6) Absolute Monos (auto) 1.02 (0.0-1.3) Lymphocytes % 24.8 (24.0-44.0) % Monocytes % 8.4 (0.0-12.0) % Eosinophils % 4.9 (0.00-5.0) % Basophils % 0.7 (0.0-0.4) % Absolute Granulocytes 7.44 H (1.4-6.9) Basophils # 0.08 (0-0.4) Sodium 134 L (137-145) mmol/L Potassium 4.5 (3.5-5.1) mmol/L Chloride 93 L (98-107) mmol/L Carbon Dioxide 24 (22-30) mmol/L Anion Gap 21.3 H (5-15) MEQ/L BUN 26 H (7-17) mg/dL Creatinine 1.37 H (0.52-1.04) mg/dL Estimated GFR 42.7 ML/MIN Glucose 124 H (74-106) mg/dL Calcium 9.6 (8.4-10.2) mg/dL Magnesium (1.6-2.3) mg/dL Total Bilirubin 0.90 (0.2-1.3) mg/dL AST 83 H (14-36) U/L ALT 67 H (0-35) U/L Alkaline Phosphatase 135 H (38-126) U/L Serum Total Protein 9.5 H (6.3-8.2) g/dL Albumin 4.9 (3.5-5.0) g/dL Amylase 165 H (30-110) U/L Lipase 521 H (23-300) U/L Urine Color YELLOW (YELLOW) Urine Appearance SLIGHTLY CLOUDY (CLEAR) Urine pH 5.0 (5-6) Ur Specific [place] 1.019 (1.005-1.025) Urine Protein 30 (Negative) Urine Ketones NEGATIVE (NEGATIVE) Urine Blood MODERATE (0-5) Gregg/ul Urine Nitrite NEGATIVE (NEGATIVE) Urine Bilirubin NEGATIVE (NEGATIVE) Urine Urobilinogen NEGATIVE (0-1) mg/dL Ur Leukocyte Esterase MODERATE (NEGATIVE) Urine WBC (Auto) 16-25 (0-5) /HPF Urine RBC (Auto) 11-15 (0-2) /HPF U Hyaline Cast (Auto) 11-25 (0-2) /LPF U Epithel Cells (Auto) NONE (FEW) /HPF Urine Bacteria (Auto) FEW (NEGATIVE) /HPF Urine Mucus (Auto) SLIGHT (NEGATIVE) /HPF Urine Glucose NEGATIVE (NEGATIVE) mg/dL 08/03/19 08/03/19 Range/Units 04:53 04:53 WBC 7.1 (4.0-10.5) K/mm3 RBC 4.04 L (4.1-5.4) M/mm3 Hgb 12.3 D (12.0-16.0) gm/dl Hct 37.6 (35-47) % MCV 93.1 (78-100) fl MCH 30.4 (26-32) pg MCHC 32.7 (32-36) g/dl RDW 15.5 H (11.5-14.0) % Plt Count 288 (150-450) K/mm3 MPV 9.9 H (6-9.5) fl Gran % 53.4 (36.0-66.0) % Eos # (Auto) 0.40 (0-0.5) Absolute Lymphs (auto) 2.17 (1.0-4.6) Absolute Monos (auto) 0.65 (0.0-1.3) Lymphocytes % 30.8 (24.0-44.0) % Monocytes % 9.2 (0.0-12.0) % Eosinophils % 5.7 H (0.00-5.0) % Basophils % 0.9 (0.0-0.4) % Absolute Granulocytes 3.77 (1.4-6.9) Basophils # 0.06 (0-0.4) Sodium 134 L (137-145) mmol/L Potassium 4.0 (3.5-5.1) mmol/L Chloride 99 (98-107) mmol/L Carbon Dioxide 27 (22-30) mmol/L Anion Gap 11.5 (5-15) MEQ/L BUN 24 H (7-17) mg/dL Creatinine 1.11 H (0.52-1.04) mg/dL Estimated GFR 54.4 ML/MIN Glucose 97 (74-106) mg/dL Calcium 8.7 (8.4-10.2) mg/dL Magnesium 2.1 (1.6-2.3) mg/dL Total Bilirubin 0.50 (0.2-1.3) mg/dL AST 71 H (14-36) U/L ALT 66 H (0-35) U/L Alkaline Phosphatase 109 (38-126) U/L Serum Total Protein 7.1 (6.3-8.2) g/dL Albumin 4.0 (3.5-5.0) g/dL Amylase 117 H (30-110) U/L Lipase 554 H (23-300) U/L Urine Color (YELLOW) Urine Appearance (CLEAR) Urine pH (5-6) Ur Specific [place] (1.005-1.025) Urine Protein (Negative) Urine Ketones (NEGATIVE) Urine Blood (0-5) Gregg/ul Urine Nitrite (NEGATIVE) Urine Bilirubin (NEGATIVE) Urine Urobilinogen (0-1) mg/dL Ur Leukocyte Esterase (NEGATIVE) Urine WBC (Auto) (0-5) /HPF Urine RBC (Auto) (0-2) /HPF U Hyaline Cast (Auto) (0-2) /LPF U Epithel Cells (Auto) (FEW) /HPF Urine Bacteria (Auto) (NEGATIVE) /HPF Urine Mucus (Auto) (NEGATIVE) /HPF Urine Glucose (NEGATIVE) mg/dL Assessment/Plan (1) Pancreatitis Current Visit: No Status: Acute Qualifiers: Chronicity: acute Pancreatitis type: idiopathic Acute pancreatitis complication: no infection or necrosis Qualified Code(s): K85.00 - Idiopathic acute pancreatitis without necrosis or infection Assessment & Plan: Her lipase is actually slightly higher this morning than last night - will do a bolus of fluid again today and recheck in a.m. Code(s): K85.90 - ACUTE PANCREATITIS WITHOUT NECROSIS OR INFECTION, UNSP (2) Chronic kidney disease (CKD) stage G3a/A1, moderately decreased glomerular filtration rate (GFR) between 45-59 mL/min/1.73 square meter and albuminuria creatinine ratio less than 30 mg/g Current Visit: No Status: Chronic Code(s): N18.3 - CHRONIC KIDNEY DISEASE, STAGE 3 (MODERATE) (3) Elevated LFTs Current Visit: No Status: Chronic Code(s): R94.5 - ABNORMAL RESULTS OF LIVER FUNCTION STUDIES (4) Short bowel syndrome Current Visit: No Status: Chronic Assessment & Plan: Mg is actually nl this morning. Code(s): K91.2 - POSTSURGICAL MALABSORPTION, NOT ELSEWHERE CLASSIFIED
[2019-08-03] MEDS ORDERED: Aldactone 25 MG PO PRN (09:50)
[2019-08-03] MEDS ORDERED: Ventolin Hfa MDI IH PRN (09:50)
[2019-08-03] MEDS ORDERED: NON-FORMULARY ITEM (Omeprazole [Omeprazole] 40 MG) PO SCH (10:00)
[2019-08-03] MEDS ORDERED: NON-FORMULARY ITEM (Esomeprazole Magnesium [Nexium] 40 MG) PO SCH (10:00)
[2019-08-03] MEDS ORDERED: AMYLASE PO SCH (10:00)
[2019-08-03] MEDS ORDERED: PROTEASE PO SCH (10:00)
[2019-08-03] MEDS ORDERED: PROVENTIL COMMON CANISTER IH PRN (10:00)
[2019-08-03] MEDS ORDERED: LYRICA 75 MG CAP PO SCH (10:00)
[2019-08-03] MEDS ORDERED: LIPASE PO SCH (10:00)
[2019-08-03] MEDS ORDERED: NON-FORMULARY ITEM (Solifenacin Succinate [Vesicare] 10 MG) PO SCH (10:00)
[2019-08-03] MEDS ORDERED: MEDICATION INTERVENTION PO SCH ×2 (10:30)
[2019-08-03] MEDS: LYRICA 100MG PO SCH ×2 (10:50→22:55)
[2019-08-03] MEDS: BUSPAR 5 MG PO SCH ×3 (10:50→22:55)
[2019-08-03] MEDS: PATIENT OWN MEDICATION PO SCH ×4 (10:51→22:56)
[2019-08-03] MEDS: Protonix 40MG Tablet PO SCH (10:51)
[2019-08-03] MEDS ORDERED: PHARMACY DOSING REQUIRED: DILAUDID PCA IV PRN (11:01)
[2019-08-03] MEDS: DILAUDID 1 MG/1ML PCA IV PRN (11:34)
[2019-08-03] MEDS ORDERED: PANCRELIPASE DR 5,000 UNIT CAP PO SCH (12:00)
[2019-08-03] MEDS: Phenergan 25 MG INJ IV PRN (16:27)
[2019-08-03] MEDS ORDERED: PATIENT OWN MEDICATION PO SCH (22:00)
[2019-08-03] MEDS ORDERED: MELATONIN 20 MG PO SCH (22:00)
[2019-08-03] MEDS ORDERED: BREXPIPRAZOLE 2 MG PO SCH (22:00)
[2019-08-03] MEDS ORDERED: VORTIOXETINE HYDROBROMIDE 20 MG PO SCH (22:00)
[2019-08-03] MEDS ORDERED: NON-FORMULARY ITEM (Sertraline Hcl [Zoloft] 200 MG) PO SCH (22:00)
[2019-08-03] MEDS: ZOLOFT 50 MG TABLET PO SCH (22:56)
[2019-08-04] MEDS: Lactated Ringers 1,000 ML IV SCH ×2 (03:18→15:29)
[2019-08-04 06:26] LABS: Absolute Neutrophil Ct (ANC) 2.23 (1.4-6.9); BASOPHIL % 1.1 % (0.0-0.4); Basophil (Absolute #) 0.05 (0-0.4); Eosinophil % 5.7 % (0.00-5.0); Eosinophil (Absolute #) 0.27 (0-0.5); Hematocrit 32.2 % (35-47); Hemoglobin 10.3 gm/dl (12.0-16.0); Lymphocyte (Absolute #) 1.75 (1.0-4.6); Lymphocytes % 37.2 % (24.0-44.0); Mean Cell Volume 96.7 fl (78-100); Mean Corpuscular Hemoglobin 30.9 pg (26-32); Mean Platelet Volume 9.7 fl (6-9.5); Monocytes % 8.5 % (0.0-12.0); Neutrophil % 47.5 % (36.0-66.0); Platelet Count 256 K/mm3 (150-450); Red Blood Count 3.33 M/mm3 (4.1-5.4); Red Cell Distribution Width 15.6 % (11.5-14.0); White Blood Count 4.7 K/mm3 (4.0-10.5)
[2019-08-04 06:38] LABS: ALBUMIN 3.3 g/dL (3.5-5.0); ALKALINE PHOSPHATASE 86 U/L (38-126); AMYLASE 96 U/L (30-110); ANION GAP 7.8 MEQ/L (5-15); BLOOD UREA NITROGEN 13 mg/dL (7-17); CHLORIDE 106 mmol/L (98-107); Calcium 8.5 mg/dL (8.4-10.2); Carbon Dioxide 26 mmol/L (22-30); Creatinine 1 0.85 mg/dL (0.52-1.04); Glucose 85 mg/dL (74-106); LIPASE 493 U/L (23-300); MAGNESIUM 1.7 mg/dL (1.6-2.3); Potassium 4.7 mmol/L (3.5-5.1); SGOT/AST 41 U/L (14-36); SGPT/ALT 47 U/L (0-35); SODIUM 135 mmol/L (137-145); Total Protein 6.1 g/dL (6.3-8.2)
[2019-08-04] MEDS: PATIENT OWN MEDICATION PO SCH ×6 (07:55→20:31)
[2019-08-04] MEDS: Zofran 4 MG/2 ML VIAL IV PRN ×2 (09:27→16:30)
[2019-08-04] MEDS: LYRICA 100MG PO SCH ×2 (09:31→20:31)
[2019-08-04] MEDS: BUSPAR 5 MG PO SCH ×3 (09:31→20:30)
[2019-08-04] MEDS: Protonix 40MG Tablet PO SCH (09:32)
--- NOTE | 2019-08-04 14:07 | PCM.NOTE ---
Date and Time: 08/04/19 1402 Subjective Assessment: Patient reports feeling swollen from fluids and wanted these turned down to 50 mL/hr. She reports that she would like to try a full liquid diet. Feels like improving slowly. - Review of Systems Constitutional: Weakness Ears, Nose, & Throat: No Symptoms Respiratory: No Symptoms Cardiac: No Symptoms Abdominal/Gastrointestinal: Abdominal Pain Genitourinary Symptoms: No Symptoms Musculoskeletal: No Symptoms Skin: No Symptoms Objective Exam General Appearance: no apparent distress Neurologic Exam: alert, cooperative, normal mood/affect Skin Exam: normal color, warm, dry Respiratory Exam: normal breath sounds, lungs clear, No crackles/rales, No rhonchi, No wheezing Cardiovascular Exam: regular rate/rhythm, No murmur, No friction rub, No gallop Gastrointestinal/Abdomen Exam: soft, normal bowel sounds, tenderness, other ( ileostomy in place) Extremity Exam: other (no c/c/e) OBJECTIVE DATA Vital Signs: Vital Signs - 24 hr Temp Pulse Resp BP Pulse Ox 08/04/19 12:23 98 F 83 20 100/53 97 08/04/19 12:00 97 08/04/19 11:30 72 16 97 08/04/19 08:00 98 08/04/19 07:49 97.8 F 70 18 114/69 98 08/04/19 07:40 98 08/04/19 04:00 97.9 F 77 18 93/54 98 08/04/19 00:00 97.6 F 64 17 101/58 97 08/03/19 20:48 76 14 93 L 08/03/19 20:00 97.8 F 72 16 106/56 97 08/03/19 16:20 77 18 97 08/03/19 16:00 97.9 F 75 16 99/58 98 Oxygen-Last 24 hours O2 Percentage 2 Liters = 28% O2 Percentage 2 Liters = 28% O2 Percentage 2 Liters = 28% O2 Percentage 2 Liters = 28% O2 Percentage 2 Liters = 28% Pain Assessment - Last Documented Pain Intensity 5 Pain Scale Used 0-10 Pain Scale Intake and Output: Intake & Output 08/02/19 08/03/19 08/04/19 08/05/19 06:59 06:59 06:59 06:59 Intake Total 5508 480 Output Total 2250 1150 Balance 3258 -670 Weight 66.7 kg Lab Results: Lab Results-Last 24 Hours 08/04/19 08/04/19 Range/Units 05:00 05:00 WBC 4.7 (4.0-10.5) K/mm3 RBC 3.33 L (4.1-5.4) M/mm3 Hgb 10.3 L (12.0-16.0) gm/dl Hct 32.2 L (35-47) % MCV 96.7 (78-100) fl MCH 30.9 (26-32) pg MCHC 32.0 (32-36) g/dl RDW 15.6 H (11.5-14.0) % Plt Count 256 (150-450) K/mm3 MPV 9.7 H (6-9.5) fl Gran % 47.5 (36.0-66.0) % Eos # (Auto) 0.27 (0-0.5) Absolute Lymphs (auto) 1.75 (1.0-4.6) Absolute Monos (auto) 0.40 (0.0-1.3) Lymphocytes % 37.2 (24.0-44.0) % Monocytes % 8.5 (0.0-12.0) % Eosinophils % 5.7 H (0.00-5.0) % Basophils % 1.1 (0.0-0.4) % Absolute Granulocytes 2.23 (1.4-6.9) Basophils # 0.05 (0-0.4) Sodium 135 L (137-145) mmol/L Potassium 4.7 (3.5-5.1) mmol/L Chloride 106 (98-107) mmol/L Carbon Dioxide 26 (22-30) mmol/L Anion Gap 7.8 (5-15) MEQ/L BUN 13 (7-17) mg/dL Creatinine 0.85 (0.52-1.04) mg/dL Estimated GFR > 60.0 ML/MIN Glucose 85 (74-106) mg/dL Calcium 8.5 (8.4-10.2) mg/dL Magnesium 1.7 (1.6-2.3) mg/dL Total Bilirubin 0.30 (0.2-1.3) mg/dL AST 41 H (14-36) U/L ALT 47 H (0-35) U/L Alkaline Phosphatase 86 (38-126) U/L Serum Total Protein 6.1 L (6.3-8.2) g/dL Albumin 3.3 L (3.5-5.0) g/dL Amylase 96 (30-110) U/L Lipase 493 H (23-300) U/L Assessment/Plan (1) Crohn's disease Current Visit: Yes Status: Acute Assessment & Plan: Continue with IV fluids. Continue with pain management. Code(s): K50.90 - CROHN'S DISEASE, UNSPECIFIED, WITHOUT COMPLICATIONS (2) Chronic pancreatitis Current Visit: No Status: Chronic Qualifiers: Pancreatitis type: idiopathic Qualified Code(s): K86.1 - Other chronic pancreatitis Assessment & Plan: Continue current management. Code(s): K86.1 - OTHER CHRONIC PANCREATITIS (3) Suprapubic catheter Current Visit: No Status: Chronic Code(s): Z93.59 - OTHER CYSTOSTOMY STATUS
[2019-08-04] MEDS: Phenergan 25 MG INJ IV PRN ×2 (14:21→20:17)
[2019-08-04] MEDS: DILAUDID 1 MG/1ML PCA IV PRN (18:06)
[2019-08-04] MEDS: ZOLOFT 50 MG TABLET PO SCH (20:32)
[2019-08-05] MEDS: Zofran 4 MG/2 ML VIAL IV PRN ×2 (07:53→18:25)
[2019-08-05] MEDS: PATIENT OWN MEDICATION PO SCH ×6 (07:54→21:09)
[2019-08-05] MEDS: DILAUDID 1 MG/1ML PCA IV PRN (08:00)
--- NOTE | 2019-08-05 09:16 | PCM.NOTE ---
Date and Time: 08/05/19912 Subjective Assessment: Pt feeling nauseated this morning. She is having 4/10 abd pain with her pain meds; now 7/10 after my exam. - Review of Systems Constitutional: No Fever Abdominal/Gastrointestinal: Abdominal Pain Objective Exam General Appearance: mild distress (with exam), alert Neurologic Exam: oriented x 3, cooperative, normal mood/affect Skin Exam: normal color, warm, dry, No rash Respiratory Exam: normal breath sounds, lungs clear, No crackles/rales, No rhonchi, No wheezing Cardiovascular Exam: regular rate/rhythm, normal heart sounds, No murmur Gastrointestinal/Abdomen Exam: soft, tenderness (epigastrum, LUQ, LLQ), guarding , No normal bowel sounds (hypoactive but present), No distention, No mass, No rebound Extremity Exam: pedal edema (trace), swelling (bilat UE and LE) OBJECTIVE DATA Vital Signs: Vital Signs - 24 hr Temp Pulse Resp BP Pulse Ox 08/05/19 07:50 95 08/05/19 07:02 97.6 F 72 14 116/61 96 08/05/19 06:50 96 08/05/19 04:00 98.1 F 81 17 103/55 95 08/05/19 00:00 98.0 F 71 16 109/56 95 08/04/19 20:48 77 16 96 08/04/19 20:00 98.2 F 73 18 103/52 95 08/04/19 18:06 98 08/04/19 16:36 98.2 F 68 18 106/67 98 08/04/19 16:00 97 08/04/19 12:23 98 F 83 20 100/53 97 08/04/19 12:00 97 08/04/19 11:30 72 16 97 Pain Assessment - Last Documented Pain Intensity 5 Pain Scale Used 0-10 Pain Scale Intake and Output: Intake & Output 08/02/19 08/03/19 08/04/19 08/05/19 11:59 11:59 11:59 11:59 Intake Total 360 0477 6686 Output Total 0327 2890 Balance 360 8978 -2767 Weight 66.7 kg Assessment/Plan (1) Pancreatitis Current Visit: No Status: Acute Qualifiers: Chronicity: acute Pancreatitis type: idiopathic Acute pancreatitis complication: no infection or necrosis Qualified Code(s): K85.00 - Idiopathic acute pancreatitis without necrosis or infection Assessment & Plan: slowly improving. Code(s): K85.90 - ACUTE PANCREATITIS WITHOUT NECROSIS OR INFECTION, UNSP (2) Chronic kidney disease (CKD) stage G3a/A1, moderately decreased glomerular filtration rate (GFR) between 45-59 mL/min/1.73 square meter and albuminuria creatinine ratio less than 30 mg/g Current Visit: No Status: Chronic Code(s): N18.3 - CHRONIC KIDNEY DISEASE, STAGE 3 (MODERATE) (3) Elevated LFTs Current Visit: No Status: Chronic Code(s): R94.5 - ABNORMAL RESULTS OF LIVER FUNCTION STUDIES (4) Short bowel syndrome Current Visit: No Status: Chronic Code(s): K91.2 - POSTSURGICAL MALABSORPTION, NOT ELSEWHERE CLASSIFIED
[2019-08-05] MEDS: LYRICA 100MG PO SCH ×2 (09:49→21:08)
[2019-08-05] MEDS: Protonix 40MG Tablet PO SCH (09:49)
[2019-08-05] MEDS: BUSPAR 5 MG PO SCH ×3 (09:49→21:07)
[2019-08-05] MEDS: Lactated Ringers 1,000 ML IV SCH (10:32)
[2019-08-05] MEDS: Phenergan 25 MG INJ IV PRN ×2 (13:53→22:46)
[2019-08-05] MEDS: CORTISONE 1% CREAM TP SCH ×2 (17:07→21:08)
[2019-08-05] MEDS: BENADRYL 25 MG CAPSULE PO PRN (21:08)
[2019-08-05] MEDS: ZOLOFT 50 MG TABLET PO SCH (21:09)
[2019-08-06 06:00] LABS: Hematocrit 32.2 % (35-47); Mean Cell Volume 97.6 fl (78-100); Mean Corpuscular Hemoglobin 30.3 pg (26-32); Mean Corpuscular Hgb Concent. 31.1 g/dl (32-36); Mean Platelet Volume 9.7 fl (6-9.5); Platelet Count 250 K/mm3 (150-450); Red Cell Distribution Width 15.6 % (11.5-14.0); White Blood Count 4.6 K/mm3 (4.0-10.5)
[2019-08-06 06:39] LABS: ALBUMIN 3.2 g/dL (3.5-5.0); ALKALINE PHOSPHATASE 79 U/L (38-126); ANION GAP 9.5 MEQ/L (5-15); BLOOD UREA NITROGEN 8 mg/dL (7-17); CHLORIDE 104 mmol/L (98-107); Calcium 8.2 mg/dL (8.4-10.2); Carbon Dioxide 29 mmol/L (22-30); Creatinine 1 0.93 mg/dL (0.52-1.04); Glucose 91 mg/dL (74-106); MAGNESIUM 1.3 mg/dL (1.6-2.3); SGOT/AST 26 U/L (14-36); SGPT/ALT 33 U/L (0-35); SODIUM 138 mmol/L (137-145); Total Protein 6.1 g/dL (6.3-8.2)
[2019-08-06] MEDS: BENADRYL 25 MG CAPSULE PO PRN (07:15)
[2019-08-06] MEDS: Lactated Ringers 1,000 ML IV SCH (07:15)
[2019-08-06] MEDS ORDERED: Magnesium Sulfate 1 GM/2 ML VIAL*** 2 GM in Sodium Chloride 0.9% 100 ML IVPB 100 ML IV ONE (08:45)
[2019-08-06] MEDS ORDERED: Magnesium Sulfate 1 GM/2 ML VIAL IV ONE (08:45)
[2019-08-06 08:51] LABS: AMYLASE 72 U/L (30-110); LIPASE 334 U/L (23-300)
[2019-08-06] MEDS: Phenergan 25 MG INJ IV PRN ×2 (08:54→16:51)
--- NOTE | 2019-08-06 08:57 | PCM.NOTE ---
Date and Time: 08/06/19 0850 Subjective Assessment: Pt is feeling a little worse today than yesterday. Her Mg is low. She would like to try increasing her diet. A rash appeared on her back; she states it is not painful at all unless it is being touched, then it feels like "thistles." - Review of Systems Constitutional: No Fever Abdominal/Gastrointestinal: Abdominal Pain, Nausea Objective Exam General Appearance: mild distress (with exam), alert Neurologic Exam: oriented x 3, cooperative Skin Exam: normal color, warm, dry, rash (R thoracic back approx T8 distribution there is an irregular approx 4x10cm erythematous blanching rash, ttp) OBJECTIVE DATA Vital Signs: Vital Signs - 24 hr Temp Pulse Resp BP Pulse Ox 08/06/19 07:43 98 F 66 16 146/69 90 L 08/06/19 07:13 94 L 08/06/19 04:00 97.1 F 80 17 119/68 94 L 08/06/19 02:00 94 L 08/06/19 01:55 94 L 08/06/19 00:00 98.8 F 67 16 122/60 95 08/05/19 22:00 95 08/05/19 20:00 98.2 F 72 18 114/59 96 08/05/19 18:00 97 08/05/19 16:00 98.2 F 67 16 126/64 97 08/05/19 14:00 94 L 08/05/19 12:00 97 08/05/19 11:44 98.1 F 77 18 106/52 94 L Pain Assessment - Last Documented Pain Intensity 0 Pain Scale Used [facility] Intake and Output: Intake & Output 08/03/19 08/04/19 08/05/19 08/06/19 11:59 11:59 11:59 11:59 Intake Total 360 8330 7630 1531 Output Total 9158 4835 950 Balance 360 5158 -0100 581 Weight 66.7 kg 66.7 kg Lab Results: Lab Results-Last 24 Hours 08/06/19 08/06/19 Range/Units 04:30 04:30 WBC 4.6 (4.0-10.5) K/mm3 RBC 3.30 L (4.1-5.4) M/mm3 Hgb 10.0 L (12.0-16.0) gm/dl Hct 32.2 L (35-47) % MCV 97.6 (78-100) fl MCH 30.3 (26-32) pg MCHC 31.1 L (32-36) g/dl RDW 15.6 H (11.5-14.0) % Plt Count 250 (150-450) K/mm3 MPV 9.7 H (6-9.5) fl Sodium 138 (137-145) mmol/L Potassium 4.0 (3.5-5.1) mmol/L Chloride 104 (98-107) mmol/L Carbon Dioxide 29 (22-30) mmol/L Anion Gap 9.5 (5-15) MEQ/L BUN 8 (7-17) mg/dL Creatinine 0.93 (0.52-1.04) mg/dL Estimated GFR > 60.0 ML/MIN Glucose 91 (74-106) mg/dL Calcium 8.2 L (8.4-10.2) mg/dL Magnesium 1.3 L (1.6-2.3) mg/dL Total Bilirubin 0.30 (0.2-1.3) mg/dL AST 26 (14-36) U/L ALT 33 (0-35) U/L Alkaline Phosphatase 79 (38-126) U/L Serum Total Protein 6.1 L (6.3-8.2) g/dL Albumin 3.2 L (3.5-5.0) g/dL Multi-Disciplinary Progress Notes: Multi-Disciplinary Progress Notes 08/05/19 14:35 Case Management Note by Miguelina Pena pt continues to deny needing assisstance after discharge. will follow. Initialized on 08/05/19 14:35 - END OF NOTE Assessment/Plan (1) Pancreatitis Current Visit: No Status: Acute Qualifiers: Chronicity: acute Pancreatitis type: idiopathic Acute pancreatitis complication: no infection or necrosis Qualified Code(s): K85.00 - Idiopathic acute pancreatitis without necrosis or infection Assessment & Plan: Amylase and lipase are pending. Currently not feeling that great, but thinks may be partially attributable to her low magnesium today. If she's feeling better later today and labs are good she may be able to go home. Code(s): K85.90 - ACUTE PANCREATITIS WITHOUT NECROSIS OR INFECTION, UNSP (2) Chronic kidney disease (CKD) stage G3a/A1, moderately decreased glomerular filtration rate (GFR) between 45-59 mL/min/1.73 square meter and albuminuria creatinine ratio less than 30 mg/g Current Visit: No Status: Chronic Code(s): N18.3 - CHRONIC KIDNEY DISEASE, STAGE 3 (MODERATE) (3) Elevated LFTs Current Visit: No Status: Chronic Code(s): R94.5 - ABNORMAL RESULTS OF LIVER FUNCTION STUDIES (4) Short bowel syndrome Current Visit: No Status: Chronic Code(s): K91.2 - POSTSURGICAL MALABSORPTION, NOT ELSEWHERE CLASSIFIED (5) Hypomagnesemia Current Visit: No Status: Acute Code(s): E83.42 - HYPOMAGNESEMIA
[2019-08-06] MEDS: PATIENT OWN MEDICATION PO SCH ×6 (09:14→22:07)
[2019-08-06] MEDS: LYRICA 100MG PO SCH ×2 (09:14→22:07)
[2019-08-06] MEDS: CORTISONE 1% CREAM TP SCH ×2 (09:15→22:06)
[2019-08-06] MEDS: BUSPAR 5 MG PO SCH ×3 (09:15→22:06)
[2019-08-06] MEDS: Protonix 40MG Tablet PO SCH (09:17)
[2019-08-06] MEDS: DILAUDID 1 MG/1ML PCA IV PRN (11:27)
[2019-08-06] MEDS: Zofran 4 MG/2 ML VIAL IV PRN ×2 (13:26→22:08)
[2019-08-06 18:08] LABS: Mucus SLIGHT /HPF (NEGATIVE); WBC 51-100 /HPF (0-5)
[2019-08-06 18:49] LABS: Appearance SLIGHTLY CLOUDY (CLEAR); Bilirubin NEGATIVE (NEGATIVE); Glucose NEGATIVE (NEGATIVE); Ketones NEGATIVE (NEGATIVE); Leukocyte Esterase 1+ (NEGATIVE); Nitrite NEGATIVE (NEGATIVE); Protein,Urine Dip TRACE (Negative); Urobilinogen NORMAL mg/dL (0-1)
[2019-08-06 18:50] LABS: Blood 50 Ery/ul (0-5)
[2019-08-06] MEDS: ZOLOFT 50 MG TABLET PO SCH (22:07)
[2019-08-07] MEDS: Lactated Ringers 1,000 ML IV SCH (04:16)
--- NOTE | 2019-08-07 07:28 | XRAY ---
Indication: Left abdomen pain. History pancreatitis and chronic renal disease. Multiple contiguous axial images obtained through the abdomen and pelvis without contrast as ordered. Comparison: July 21, 2019. Lung bases again demonstrates bibasilar atelectasis worsened on the left. No infiltrate or effusion. Heart is not enlarged. Stomach is now distended with food/fluid. Noncontrasted stomach and bowel loops remain nonobstructed. Small bowel loops now demonstrate mild diffuse fluid distention with some fluid leveling, ileus versus enteritis. No free fluid/air. Stable suprapubic catheter, colectomy, right lower quadrant colostomy, cholecystectomy, and hysterectomy. No free fluid/air. Previous left-sided hydronephrosis/hydroureter has resolved. Remaining liver, pancreas, spleen, adrenal glands, kidneys, ureters, bladder, and aorta appear unremarkable for noncontrast exam. Osseous structures intact Impression: 1. Mild diffuse fluid distended small bowel loops with fluid leveling, ileus versus enteritis. 2. Worsening left lung base atelectasis. 3. Stable postoperative changes.
[2019-08-07 08:10] LABS: ALBUMIN 3.4 g/dL (3.5-5.0); ALKALINE PHOSPHATASE 84 U/L (38-126); AMYLASE 84 U/L (30-110); ANION GAP 9.2 MEQ/L (5-15); BLOOD UREA NITROGEN 7 mg/dL (7-17); CHLORIDE 107 mmol/L (98-107); Calcium 8.5 mg/dL (8.4-10.2); Carbon Dioxide 29 mmol/L (22-30); Creatinine 1 1.01 mg/dL (0.52-1.04); Glucose 87 mg/dL (74-106); LIPASE 268 U/L (23-300); MAGNESIUM 1.7 mg/dL (1.6-2.3); Potassium 4.3 mmol/L (3.5-5.1); SGOT/AST 21 U/L (14-36); SGPT/ALT 26 U/L (0-35); SODIUM 140 mmol/L (137-145); Total Protein 6.3 g/dL (6.3-8.2)
--- NOTE | 2019-08-07 08:11 | PCM.NOTE ---
Date and Time: 08/07/19809 Subjective Assessment: doing ok, no abdominal pain - Review of Systems Constitutional: No Fever, No Chills Eyes: No Symptoms Ears, Nose, & Throat: No Symptoms Respiratory: No Cough, No Short Of Breath Cardiac: No Chest Pain, No Edema, No Syncope Abdominal/Gastrointestinal: No Abdominal Pain, No Nausea, No Vomiting, No Diarrhea Genitourinary Symptoms: No Dysuria Musculoskeletal: No Back Pain, No Neck Pain Skin: No Rash Neurological: No Dizziness, No Focal Weakness, No Sensory Changes Psychological: No Symptoms Endocrine: No Symptoms Hematologic/Lymphatic: No Symptoms Immunological/Allergic: No Symptoms Objective Exam General Appearance: no apparent distress, alert Neurologic Exam: alert, oriented x 3, cooperative, normal mood/affect, nml cerebellar function, sensation nml, No motor deficits Skin Exam: normal color, warm, dry Eye Exam: PERRL, EOMI, eyes nml inspection Ears, Nose, Throat Exam: normal ENT inspection, pharynx normal, moist mucous membranes Neck Exam: normal inspection, non-tender, supple, full range of motion Respiratory Exam: normal breath sounds, lungs clear, No respiratory distress Cardiovascular Exam: regular rate/rhythm, normal heart sounds Gastrointestinal/Abdomen Exam: soft, No tenderness, No mass Extremity Exam: normal inspection, normal range of motion Back Exam: normal inspection, normal range of motion, No CVA tenderness, No vertebral tenderness Pelvic Exam: deferred Rectal Exam: deferred OBJECTIVE DATA Vital Signs: Vital Signs - 24 hr Temp Pulse Resp BP Pulse Ox 08/07/19 04:00 97.9 F 69 14 133/71 92 L 08/07/19 03:27 92 L 08/07/19 00:00 97.7 F 61 16 126/72 93 L 08/06/19 23:27 93 L 08/06/19 20:00 97.7 F 71 18 112/57 93 L 08/06/19 19:27 93 L 08/06/19 16:00 95 08/06/19 15:34 98.4 F 80 18 103/64 94 L 08/06/19 12:00 97 08/06/19 11:27 97 08/06/19 11:05 97.9 F 82 16 109/57 93 L Pain Assessment - Last Documented Pain Intensity 5 Pain Scale Used 0-10 Pain Scale Intake and Output: Intake & Output 08/04/19 08/05/19 08/06/19 08/07/19 11:59 11:59 11:59 11:59 Intake Total 8181 7860 9466 2798 Output Total 0439 5978 1250 2150 Balance 2538 -5428 312 646 Weight 66.7 kg Lab Results: Lab Results-Last 24 Hours 08/06/19 08/06/19 Range/Units 05:00 17:06 Amylase 72 (30-110) U/L Lipase 334 H (23-300) U/L Urine Color YELLOW (YELLOW) Urine Appearance SLIGHTLY CLOUDY (CLEAR) Urine pH 5.0 (5-6) Ur Specific [place] 1.020 (1.005-1.025) Urine Protein TRACE (Negative) Urine Ketones NEGATIVE (NEGATIVE) Urine Blood 50 (0-5) Gregg/ul Urine Nitrite NEGATIVE (NEGATIVE) Urine Bilirubin NEGATIVE (NEGATIVE) Urine Urobilinogen NORMAL (0-1) mg/dL Ur Leukocyte Esterase 1+ (NEGATIVE) Urine WBC (Auto) 51-100 (0-5) /HPF Urine RBC (Auto) 11-15 (0-2) /HPF U Epithel Cells (Auto) NONE (FEW) /HPF Urine Bacteria (Auto) NONE (NEGATIVE) /HPF Urine Mucus (Auto) SLIGHT (NEGATIVE) /HPF Urine Culture Reflexed YES (NO) Urine Glucose NEGATIVE (NEGATIVE) mg/dL Radiology Exams: Radiology Procedures Category Date Time Status ABDOMEN AND PELVIS W/0 CONTRAS [CT] Routine Exams 08/06/19 19:15 Completed Multi-Disciplinary Progress Notes: Multi-Disciplinary Progress Notes 08/06/19 10:51 Case Management Note by Miguelina Pena continues to plan to return home at pre-episodic level. will continue to follow. Initialized on 08/06/19 10:51 - END OF NOTE Assessment/Plan (1) Crohn's disease Current Visit: Yes Status: Acute Qualifiers: Gastrointestinal tract location: small and large intestine Digestive disease complication type: unspecified complication Qualified Code(s): K50.819 - Crohn's disease of both small and large intestine with unspecified complications Assessment & Plan: Last Vital Signs Temp 97.9 F 08/07/19 04:00 Pulse 69 08/07/19 04:00 Resp 14 08/07/19 04:00 BP 133/71 08/07/19 04:00 Pulse Ox 92 L 08/07/19 04:00 Allergies oxybutynin Allergy (Severe, Verified 07/21/19 04:30) pharyngeal swelling oxycodone [From Percocet] Allergy (Intermediate, Verified 07/21/19 04:30) Hives Pt. stated " Immediatly after taking it I felt like I was coming out of my skin." ampicillin Allergy (Mild, Verified 07/21/19 04:30) hives erythromycin base [Erythromycin Base] Allergy (Mild, Verified 07/21/19 04:30) Hives duloxetine HCl [From Cymbalta] Allergy (Unknown, Verified 07/21/19 04:30) Tightness of Throat Active Medications Albuterol Sulfate (Proventil Common Canister) 2 puff IH Q4H PRN PRN PRN Reason: SHORTNESS OF BREATH Stop: 09/02/19 09:59 Buspirone HCl (Buspar 5 Mg) 15 mg PO TID [facility] Stop: 09/02/19 09:59 Last Admin: 08/06/19 22:06 Dose: 15 mg Diphenhydramine HCl (Benadryl 25 Mg Capsule) 25 mg PO Q4H PRN PRN PRN Reason: ITCHING Stop: 09/04/19 20:38 Last Admin: 08/06/19 07:15 Dose: 25 mg Heparin Sodium (Beef Lung) (Heparin Lock Flush 100 Units/Ml 5ml Syringe) 500 units PORT FLUSH PRN PRN PRN Reason: IV PORT FLUSH Stop: 09/02/19 09:49 Hydrocortisone (Cortisone 1% Cream) 0.5 gm TP BID [facility] Stop: 09/04/19 16:59 Last Admin: 08/06/19 22:06 Dose: 0.5 gm Hydromorphone HCl (Dilaudid 1 Mg/1ml House Player) 0 mg IV PRN PRN Stop: 08/08/19 11:05 Last Admin: 08/06/19 11:27 Dose: 1 ml Lactated Ringer's (Lactated Ringers) 1,000 mls @ 50 mls/hr IV .Q20H [facility] Stop: 09/03/19 09:26 Last Admin: 08/07/19 04:16 Dose: 50 mls/hr Miscellaneous Information (Medication Intervention) 1 each PO .RN TO CHECK ON YURI Stop: 09/02/19 10:29 Miscellaneous Information (Medication Intervention) 1 each PO .RN TO CHECK ON YURI Stop: 09/02/19 10:29 Non-Formulary Medication (Pharmacy Dosing Required: Dilaudid House Player) 1 each IV UD PRN PRN Reason: PAIN Stop: 09/02/19 11:00 Ondansetron HCl (Zofran 4 Mg/2 Ml Vial) 4 mg IV Q4H PRN PRN PRN Reason: NAUSEA/VOMITING Stop: 09/01/19 23:44 Last Admin: 08/06/19 22:08 Dose: 4 mg Pantoprazole Sodium (Protonix 40mg Tablet) 40 mg PO DAILY YURI Stop: 09/02/19 09:59 Last Admin: 08/06/19 09:17 Dose: 40 mg Myrbetriq 50mg (Tablet) 1 each PO DAILY [facility] Stop: 09/02/19 09:59 Last Admin: 08/06/19 09:15 Dose: 1 each Solifenacin 10mg (Tablet) 1 each PO DAILY [facility] Stop: 09/02/19 09:59 Last Admin: 08/06/19 09:16 Dose: 1 each Creon 24,000 Unit (Capsule) 2 each PO TIDWM [facility] Stop: 09/02/19 16:59 Last Admin: 08/06/19 17:38 Dose: 2 each Patient Own Medication (Patient Own Medication) 2 each PO HS YURI Stop: 09/02/19 21:59 Last Admin: 08/06/19 22:07 Dose: 2 each Pregabalin (Lyrica 100mg) 100 mg PO BID [facility] Stop: 09/02/19 09:59 Last Admin: 08/06/19 22:07 Dose: 100 mg Promethazine HCl (Phenergan 25 Mg Inj) 12.5 mg IV Q6H PRN PRN PRN Reason: NAUSEA/VOMITING Stop: 09/01/19 23:39 Last Admin: 08/06/19 16:51 Dose: 12.5 mg Sertraline HCl (Zoloft 50 Mg Tablet) 200 mg PO HS [facility] Stop: 09/02/19 21:59 Last Admin: 08/06/19 22:07 Dose: 200 mg Spironolactone (Aldactone 25 Mg) 25 mg PO DAILY PRN PRN PRN Reason: water retention Stop: 09/02/19 09:49 Intake & Output 08/06/19 08/07/19 11:59 11:59 Intake Total 1891 2796 Output Total 1250 2150 Balance 641 646 Weight 66.7 kg Lab Tests 08/06/19 08/06/19 05:00 17:06 Amylase 72 Lipase 334 H Urine Color YELLOW Urine Appearance SLIGHTLY CLOUDY Urine pH 5.0 Ur Specific [place] 1.020 Urine Protein TRACE Urine Ketones NEGATIVE Urine Blood 50 Urine Nitrite NEGATIVE Urine Bilirubin NEGATIVE Urine Urobilinogen NORMAL Ur Leukocyte Esterase 1+ Urine WBC (Auto) 51-100 Urine RBC (Auto) 11-15 U Epithel Cells (Auto) NONE Urine Bacteria (Auto) NONE Urine Mucus (Auto) SLIGHT Urine Culture Reflexed YES Urine Glucose NEGATIVE All Active Problems Crohn's disease (Acute) Abdominal pain (Acute ~07/17/18) Anemia (Acute) Bladder spasms (Acute) Contusion of right knee (Acute) Hydronephrosis (Acute) Hypomagnesemia (Acute) Pancreatitis (Acute) Shingles rash (Acute) UTI (urinary tract infection) (Acute) Anemia (Chronic) Chronic abdominal pain (Chronic) Chronic kidney disease (CKD) stage G3a/A1, moderately decreased glomerular filtration rate (GFR) between 45-59 mL/min/1.73 square meter and albuminuria creatinine ratio less than 30 mg/g (Chronic) Chronic pancreatitis (Chronic) Crohns disease (Chronic) Elevated LFTs (Chronic) Elevated liver enzymes (Chronic) Hypokalemia (Chronic) Ileostomy care (Chronic) Ileostomy in place (Chronic) Peptic ulcer (Chronic) Short bowel syndrome (Chronic) Suprapubic catheter (Chronic) Code(s): K50.90 - CROHN'S DISEASE, UNSPECIFIED, WITHOUT COMPLICATIONS (2) Chronic abdominal pain Current Visit: Yes Status: Chronic Code(s): R10.9 - UNSPECIFIED ABDOMINAL PAIN; G89.29 - OTHER CHRONIC PAIN (3) Chronic kidney disease (CKD) stage G3a/A1, moderately decreased glomerular filtration rate (GFR) between 45-59 mL/min/1.73 square meter and albuminuria creatinine ratio less than 30 mg/g Current Visit: No Status: Chronic Code(s): N18.3 - CHRONIC KIDNEY DISEASE, STAGE 3 (MODERATE) (4) Hypomagnesemia Current Visit: No Status: Acute Code(s): E83.42 - HYPOMAGNESEMIA (5) Chronic pancreatitis Current Visit: Yes Status: Chronic Qualifiers: Pancreatitis type: idiopathic Qualified Code(s): K86.1 - Other chronic pancreatitis Code(s): K86.1 - OTHER CHRONIC PANCREATITIS
[2019-08-07 08:22] LABS: Absolute Neutrophil Ct (ANC) 2.67 (1.4-6.9); BASOPHIL % 0.4 % (0.0-0.4); Basophil (Absolute #) 0.02 (0-0.4); Eosinophil % 4.9 % (0.00-5.0); Eosinophil (Absolute #) 0.23 (0-0.5); Hematocrit 33.7 % (35-47); Hemoglobin 10.8 gm/dl (12.0-16.0); Lymphocyte (Absolute #) 1.48 (1.0-4.6); Lymphocytes % 31.5 % (24.0-44.0); Mean Cell Volume 95.7 fl (78-100); Mean Corpuscular Hemoglobin 30.7 pg (26-32); Mean Platelet Volume 9.5 fl (7.5-11.0); Monocytes % 6.4 % (0.0-12.0); Neutrophil % 56.8 % (36.0-66.0); Platelet Count 260 K/mm3 (150-450); Red Blood Count 3.52 M/mm3 (4.1-5.4); Red Cell Distribution Width 15.2 % (11.5-14.0); White Blood Count 4.7 K/mm3 (4.0-10.5)
[2019-08-07] MEDS: PATIENT OWN MEDICATION PO SCH ×6 (08:25→21:31)
[2019-08-07] MEDS: Phenergan 25 MG INJ IV PRN ×2 (08:50→13:35)
[2019-08-07] MEDS: BUSPAR 5 MG PO SCH ×3 (10:14→21:25)
[2019-08-07] MEDS: LYRICA 100MG PO SCH ×2 (10:14→21:25)
[2019-08-07] MEDS: Protonix 40MG Tablet PO SCH (10:15)
[2019-08-07] MEDS: CORTISONE 1% CREAM TP SCH ×2 (10:18→21:26)
[2019-08-07] MEDS: BACTRIM DS TABLET PO SCH ×2 (12:03→21:25)
[2019-08-07] MEDS: Zofran 4 MG/2 ML VIAL IV PRN (16:15)
[2019-08-07] MEDS: ZOLOFT 50 MG TABLET PO SCH (21:25)
[2019-08-08] MEDS: Lactated Ringers 1,000 ML IV SCH ×2 (00:05→20:03)
--- NOTE | 2019-08-08 06:06 | PCM.NOTE ---
Date and Time: 08/08/19604 Subjective Assessment: doing better, abdominal pain is controlled - Review of Systems Constitutional: No Fever, No Chills Eyes: No Symptoms Ears, Nose, & Throat: No Symptoms Respiratory: No Cough, No Short Of Breath Cardiac: No Chest Pain, No Edema, No Syncope Abdominal/Gastrointestinal: Abdominal Pain, No Nausea, No Vomiting, No Diarrhea Genitourinary Symptoms: No Dysuria Musculoskeletal: No Back Pain, No Neck Pain Skin: No Rash Neurological: No Dizziness, No Focal Weakness, No Sensory Changes Psychological: No Symptoms Endocrine: No Symptoms Hematologic/Lymphatic: No Symptoms Immunological/Allergic: No Symptoms Objective Exam General Appearance: no apparent distress, alert Neurologic Exam: alert, oriented x 3, cooperative, normal mood/affect, nml cerebellar function, sensation nml, No motor deficits Skin Exam: normal color, warm, dry Eye Exam: PERRL, EOMI, eyes nml inspection Ears, Nose, Throat Exam: normal ENT inspection, pharynx normal, moist mucous membranes Neck Exam: normal inspection, non-tender, supple, full range of motion Respiratory Exam: normal breath sounds, lungs clear, No respiratory distress Cardiovascular Exam: regular rate/rhythm, normal heart sounds Gastrointestinal/Abdomen Exam: soft, No tenderness, No mass Extremity Exam: normal inspection, normal range of motion Back Exam: normal inspection, normal range of motion, No CVA tenderness, No vertebral tenderness Pelvic Exam: deferred Rectal Exam: deferred OBJECTIVE DATA Vital Signs: Vital Signs - 24 hr Temp Pulse Resp BP Pulse Ox 08/08/19 04:00 98.2 F 73 18 141/68 96 08/07/19 23:48 98.5 F 68 16 121/58 94 L 08/07/19 23:27 94 L 08/07/19 22:00 95 08/07/19 21:40 71 16 95 08/07/19 20:12 99.0 F 74 16 123/69 95 08/07/19 19:27 94 L 08/07/19 18:45 97 08/07/19 16:00 98.6 F 70 19 110/5 92 L 08/07/19 12:00 98.3 F 72 12 107/66 94 L 08/07/19 09:49 96 H 16 96 08/07/19 08:00 97.8 F 75 12 136/65 95 08/07/19 07:27 97 Pain Assessment - Last Documented Pain Intensity 5 Pain Scale Used 0-10 Pain Scale Intake and Output: Intake & Output 08/05/19 08/06/19 08/07/19 08/08/19 11:59 11:59 11:59 11:59 Intake Total 2096 1891 3156 1979 Output Total 3675 1250 2150 1525 Balance -2057 477 3759 454 Weight 66.7 kg Lab Results: Lab Results-Last 24 Hours 08/07/19 08/07/19 Range/Units 07:58 07:58 WBC 4.7 (4.0-10.5) K/mm3 RBC 3.52 L (4.1-5.4) M/mm3 Hgb 10.8 L (12.0-16.0) gm/dl Hct 33.7 L (35-47) % MCV 95.7 (78-100) fl MCH 30.7 (26-32) pg MCHC 32.0 (32-36) g/dl RDW 15.2 H (11.5-14.0) % Plt Count 260 (150-450) K/mm3 MPV 9.5 (7.5-11.0) fl Gran % 56.8 (36.0-66.0) % Eos # (Auto) 0.23 (0-0.5) Absolute Lymphs (auto) 1.48 (1.0-4.6) Absolute Monos (auto) 0.30 (0.0-1.3) Lymphocytes % 31.5 (24.0-44.0) % Monocytes % 6.4 (0.0-12.0) % Eosinophils % 4.9 (0.00-5.0) % Basophils % 0.4 (0.0-0.4) % Absolute Granulocytes 2.67 (1.4-6.9) Basophils # 0.02 (0-0.4) Sodium 140 (137-145) mmol/L Potassium 4.3 (3.5-5.1) mmol/L Chloride 107 (98-107) mmol/L Carbon Dioxide 29 (22-30) mmol/L Anion Gap 9.2 (5-15) MEQ/L BUN 7 (7-17) mg/dL Creatinine 1.01 (0.52-1.04) mg/dL Estimated GFR > 60.0 ML/MIN Glucose 87 (74-106) mg/dL Calcium 8.5 (8.4-10.2) mg/dL Magnesium 1.7 (1.6-2.3) mg/dL Total Bilirubin 0.30 (0.2-1.3) mg/dL AST 21 (14-36) U/L ALT 26 (0-35) U/L Alkaline Phosphatase 84 (38-126) U/L Serum Total Protein 6.3 (6.3-8.2) g/dL Albumin 3.4 L (3.5-5.0) g/dL Amylase 84 (30-110) U/L Lipase 268 (23-300) U/L Radiology Exams: Radiology Procedures Category Date Time Status ABDOMEN AND PELVIS W/0 CONTRAS [CT] Routine Exams 08/06/19 19:15 Completed Assessment/Plan (1) Hypomagnesemia Current Visit: Yes Status: Resolved Code(s): E83.42 - HYPOMAGNESEMIA (2) Crohn's disease Current Visit: Yes Status: Acute Qualifiers: Gastrointestinal tract location: small and large intestine Digestive disease complication type: unspecified complication Qualified Code(s): K50.819 - Crohn's disease of both small and large intestine with unspecified complications Code(s): K50.90 - CROHN'S DISEASE, UNSPECIFIED, WITHOUT COMPLICATIONS (3) Chronic abdominal pain Current Visit: Yes Status: Chronic Code(s): R10.9 - UNSPECIFIED ABDOMINAL PAIN; G89.29 - OTHER CHRONIC PAIN (4) Chronic kidney disease (CKD) stage G3a/A1, moderately decreased glomerular filtration rate (GFR) between 45-59 mL/min/1.73 square meter and albuminuria creatinine ratio less than 30 mg/g Current Visit: Yes Status: Chronic Code(s): N18.3 - CHRONIC KIDNEY DISEASE, STAGE 3 (MODERATE) (5) Chronic pancreatitis Current Visit: Yes Status: Chronic Qualifiers: Pancreatitis type: idiopathic Qualified Code(s): K86.1 - Other chronic pancreatitis Code(s): K86.1 - OTHER CHRONIC PANCREATITIS
[2019-08-08] MEDS: PATIENT OWN MEDICATION PO SCH ×6 (08:15→22:41)
[2019-08-08] MEDS: Zofran 4 MG/2 ML VIAL IV PRN ×3 (08:15→17:11)
[2019-08-08] MEDS: BUSPAR 5 MG PO SCH ×3 (09:43→22:40)
[2019-08-08] MEDS: BACTRIM DS TABLET PO SCH (09:43)
[2019-08-08] MEDS: Protonix 40MG Tablet PO SCH (09:44)
[2019-08-08] MEDS: LYRICA 100MG PO SCH ×2 (09:44→22:40)
[2019-08-08] MEDS: CORTISONE 1% CREAM TP SCH ×2 (10:40→22:41)
[2019-08-08] MEDS ORDERED: DILAUDID 1 MG/1ML PCA IV PRN (11:27)
[2019-08-08] MEDS: Phenergan 25 MG INJ IV PRN (19:34)
[2019-08-08] MEDS: ZOLOFT 50 MG TABLET PO SCH (22:38)
[2019-08-08] MEDS: Cipro 500 MG PO SCH (22:39)
--- NOTE | 2019-08-09 08:45 | PCM.NOTE ---
Date and Time: 08/09/19840 Subjective Assessment: Pt is feeling better than at admission. Still has nausea with eating (bland diet). - Review of Systems Constitutional: No Fever Abdominal/Gastrointestinal: Abdominal Pain, Nausea Objective Exam General Appearance: no apparent distress, alert Neurologic Exam: oriented x 3, cooperative Skin Exam: normal color, warm, dry, No rash Respiratory Exam: normal breath sounds, lungs clear, wheezing (faint expiratory) , No crackles/rales, No rhonchi Cardiovascular Exam: regular rate/rhythm, normal heart sounds, No murmur Gastrointestinal/Abdomen Exam: soft, normal bowel sounds, tenderness (epigastrum ), No distention, No mass, No guarding, No rebound Extremity Exam: No pedal edema, No swelling Back Exam: normal inspection, No rash OBJECTIVE DATA Vital Signs: Vital Signs - 24 hr Temp Pulse Resp BP Pulse Ox 08/09/19 08:12 95 08/09/19 07:44 98.0 F 74 18 117/71 96 08/09/19 04:00 98.3 F 69 18 122/69 94 L 08/09/19 02:00 94 L 08/08/19 23:33 97.9 F 78 16 100/67 93 L 08/08/19 20:33 81 16 95 08/08/19 20:00 98.5 F 73 16 112/60 95 08/08/19 18:00 98 08/08/19 16:57 97.2 F 73 18 109/61 94 L 08/08/19 14:00 92 L 08/08/19 13:00 98.3 F 80 20 126/64 92 L 08/08/19 10:00 94 L Pain Assessment - Last Documented Pain Intensity 5 Pain Scale Used [facility] Intake and Output: Intake & Output 08/06/19 08/07/19 08/08/19 08/09/19 11:59 11:59 11:59 11:59 Intake Total 1891 3156 2219 1672 Output Total 1250 2150 1525 1400 Balance 641 1006 694 272 Weight 66.7 kg Assessment/Plan (1) Pancreatitis Current Visit: No Status: Acute Qualifiers: Chronicity: acute Pancreatitis type: idiopathic Acute pancreatitis complication: no infection or necrosis Qualified Code(s): K85.00 - Idiopathic acute pancreatitis without necrosis or infection Assessment & Plan: Much improved. Checking electrolytes again this morning. Will see how she feels with eating today. May be within a day or two of going home. Code(s): K85.90 - ACUTE PANCREATITIS WITHOUT NECROSIS OR INFECTION, UNSP (2) UTI (urinary tract infection) Current Visit: No Status: Resolved Onset Date: ~07/17/18 Qualifiers: Urinary tract infection type: acute cystitis Hematuria presence: without hematuria Qualified Code(s): N30.00 - Acute cystitis without hematuria Assessment & Plan: E. faecalis, susceptible to cipro. Code(s): N39.0 - URINARY TRACT INFECTION, SITE NOT SPECIFIED (3) Ileus Current Visit: Yes Status: Acute Assessment & Plan: On CT scan from 08/07/19. Code(s): K56.7 - ILEUS, UNSPECIFIED (4) Chronic kidney disease (CKD) stage G3a/A1, moderately decreased glomerular filtration rate (GFR) between 45-59 mL/min/1.73 square meter and albuminuria creatinine ratio less than 30 mg/g Current Visit: Yes Status: Chronic Code(s): N18.3 - CHRONIC KIDNEY DISEASE, STAGE 3 (MODERATE) (5) Elevated LFTs Current Visit: No Status: Chronic Code(s): R94.5 - ABNORMAL RESULTS OF LIVER FUNCTION STUDIES (6) Short bowel syndrome Current Visit: No Status: Chronic Code(s): K91.2 - POSTSURGICAL MALABSORPTION, NOT ELSEWHERE CLASSIFIED (7) Hypomagnesemia Current Visit: Yes Status: Resolved Code(s): E83.42 - HYPOMAGNESEMIA
[2019-08-09] MEDS: Phenergan 25 MG INJ IV PRN (09:00)
[2019-08-09] MEDS: BUSPAR 5 MG PO SCH ×2 (09:06→15:40)
[2019-08-09] MEDS: PATIENT OWN MEDICATION PO SCH ×5 (09:06→16:45)
[2019-08-09] MEDS: Protonix 40MG Tablet PO SCH (09:08)
[2019-08-09] MEDS: LYRICA 100MG PO SCH (09:08)
[2019-08-09] MEDS: CORTISONE 1% CREAM TP SCH (09:12)
[2019-08-09 09:46] LABS: Hematocrit 33.4 % (35-47); Hemoglobin 10.7 gm/dl (12.0-16.0); Mean Cell Volume 94.9 fl (78-100); Mean Corpuscular Hemoglobin 30.4 pg (26-32); Mean Platelet Volume 9.4 fl (7.5-11.0); Platelet Count 247 K/mm3 (150-450); Red Blood Count 3.52 M/mm3 (4.1-5.4); Red Cell Distribution Width 15.4 % (11.5-14.0); White Blood Count 5.9 K/mm3 (4.0-10.5)
[2019-08-09 09:47] LABS: ALBUMIN 3.5 g/dL (3.5-5.0); ANION GAP 9.6 MEQ/L (5-15); BILIRUBIN,TOTAL 0.4 mg/dL (0.2-1.3); Calcium 8.4 mg/dL (8.4-10.2); Creatinine 1 1.14 mg/dL (0.52-1.04); MAGNESIUM 1.3 mg/dL (1.6-2.3); Potassium 3.8 mmol/L (3.5-5.1); Total Protein 6.6 g/dL (6.3-8.2)
[2019-08-09] MEDS: Cipro 500 MG PO SCH (11:42)
[2019-08-09 11:59] VITALS: O2SAT 93
[2019-08-09] MEDS ORDERED: Magnesium Sulfate 1 GM/2 ML VIAL IV ONE (12:18)
[2019-08-09] MEDS ORDERED: POTASSIUM CHLORIDE 20 mEq IN WATER 100ML 20 MEQ/100 ML BAG IV ONE (12:18)
[2019-08-09] MEDS: Magnesium 1 Gm / 100 Ml D5W*** 100 ML IV SCH ×2 (12:33→14:04)
[2019-08-09] MEDS: Zofran 4 MG/2 ML VIAL IV PRN (14:08)
--- NOTE | 2019-08-09 15:36 | PCM.DS ---
Discharge Summary Date of Admission: 08/02/19 22:23 Date of Discharge: 08/09/19 Admitting Physician: JOSE ZAMORANO Primary Care Provider: JOSE ZAMORANO Allergies Allergies oxybutynin Allergy (Severe, Verified 07/21/19 04:30) pharyngeal swelling oxycodone [From Percocet] Allergy (Intermediate, Verified 07/21/19 04:30) Hives Pt. stated " Immediatly after taking it I felt like I was coming out of my skin." ampicillin Allergy (Mild, Verified 07/21/19 04:30) hives erythromycin base [Erythromycin Base] Allergy (Mild, Verified 07/21/19 04:30) Hives duloxetine HCl [From Cymbalta] Allergy (Unknown, Verified 07/21/19 04:30) Tightness of Throat Hospital Summary - Hospital Course Hospital Course: Pt is 54 yo female pt of mine from [facility] with PMHx Crohn's disease (s/p colon resection with resultant ileostomy), bladder damage with suprapubic catheter, chronic renal failure, short gut syndrome with chronic hypomagnesemia and hypokalemia, and chronic pancreatitis here for a pancreatitis flare and UTI. She was treated inpatient prior to [place] for pancreatitis, was feeling better but still having abd pain when she was discharged to home. The pain worsened and she was found to have elevated lipase and amylase. She was admitted on IV fluids and IV pain medication. She slowly advanced her diet but her pain has been fairly persistent. She did get a CT abd/pelvis last week that showed some ileus. She had a UA on 08/06/19 showing WBC that grew Enterobacter, so she was started on bactrim then changed to cipro. on the day of discharge, pt's Mg was 1.3 and Potassium was 3.8. She will be repleted IV and after post-levels done, will be discharged to home. F/u in 1 week. - Vitals & Intake/Output Vital Signs: Vital Signs Temperature 98.4 F 08/09/19 11:58 Pulse Rate 91 H 08/09/19 11:58 Respiratory Rate 18 08/09/19 11:58 Blood Pressure 109/58 08/09/19 11:58 O2 Sat by Pulse Oximetry 93 L 08/09/19 11:58 Oxygen-Last Documented O2 Percentage 2 Liters = 28% Intake & Output: Intake & Output 08/07/19 08/08/19 08/09/19 08/10/19 11:59 11:59 11:59 11:59 Intake Total 3155 2219 2152 580 Output Total 2150 1525 1400 Balance 1006 694 752 580 - Lab Result Diagrams: 08/09/19 09:28 08/09/19 09:28 Lab Results-Last 24 Hrs: Lab Results-Last 24 Hours 08/09/19 08/09/19 Range/Units 09:28 09:28 WBC 5.9 (4.0-10.5) K/mm3 RBC 3.52 L (4.1-5.4) M/mm3 Hgb 10.7 L (12.0-16.0) gm/dl Hct 33.4 L (35-47) % MCV 94.9 (78-100) fl MCH 30.4 (26-32) pg MCHC 32.0 (32-36) g/dl RDW 15.4 H (11.5-14.0) % Plt Count 247 (150-450) K/mm3 MPV 9.4 (7.5-11.0) fl Sodium 139 (137-145) mmol/L Potassium 3.8 (3.5-5.1) mmol/L Chloride 105 (98-107) mmol/L Carbon Dioxide 29 (22-30) mmol/L Anion Gap 9.6 (5-15) MEQ/L BUN 10 (7-17) mg/dL Creatinine 1.14 H (0.52-1.04) mg/dL Estimated GFR 52.8 ML/MIN Glucose 110 H (74-106) mg/dL Calcium 8.4 (8.4-10.2) mg/dL Magnesium 1.3 L (1.6-2.3) mg/dL Total Bilirubin 0.40 (0.2-1.3) mg/dL AST 26 (14-36) U/L ALT 22 (0-35) U/L Alkaline Phosphatase 71 (38-126) U/L Serum Total Protein 6.6 (6.3-8.2) g/dL Albumin 3.5 (3.5-5.0) g/dL Lipase 136 (23-300) U/L Micro Results-Entire Visit: Microbiology 08/06/19 17:06 Urine Culture - Final Suprapubic Cath Enterococcus Faecalis - Procedures and Test Procedures and Tests throughout Hospitalization: Therapy Orders & Screens 08/04/19 06:27 Oxygen Nasal Cannula 2 lpm Comment: Diagnosis: Pancreatitis 08/04/19 07:00 Respiratory Therapy Assessment DAILY Comment: Diagnosis: Pancreatitis Discharge Exam General Appearance: no apparent distress, alert Neurologic Exam: oriented x 3, cooperative Eye Exam: eyes nml inspection Ears, Nose, Throat Exam: moist mucous membranes Neck Exam: normal inspection Respiratory Exam: normal breath sounds, lungs clear, wheezing (faint expiratory) , No crackles/rales, No rhonchi Cardiovascular Exam: regular rate/rhythm, normal heart sounds, No murmur Gastrointestinal/Abdomen Exam: soft, normal bowel sounds, tenderness (epigastrum ), No distention, No mass, No guarding, No rebound Extremity Exam: normal inspection, No swelling, No tenderness Skin Exam: normal color, warm, dry, No rash Final Diagnosis/Problem List - Final Discharge Diagnosis/Problem (1) Pancreatitis Current Visit: No Status: Acute Assessment & Plan: amylase and lipase wnl for the past several days. Continue to advance diet slowly. Code(s): K85.90 - ACUTE PANCREATITIS WITHOUT NECROSIS OR INFECTION, UNSP (2) UTI (urinary tract infection) Current Visit: No Status: Acute Onset Date: ~07/17/18 Assessment & Plan: finish course of cipro Code(s): N39.0 - URINARY TRACT INFECTION, SITE NOT SPECIFIED (3) Ileus Current Visit: Yes Status: Resolved Code(s): K56.7 - ILEUS, UNSPECIFIED (4) Chronic kidney disease (CKD) stage G3a/A1, moderately decreased glomerular filtration rate (GFR) between 45-59 mL/min/1.73 square meter and albuminuria creatinine ratio less than 30 mg/g Current Visit: Yes Status: Chronic Code(s): N18.3 - CHRONIC KIDNEY DISEASE, STAGE 3 (MODERATE) (5) Elevated LFTs Current Visit: No Status: Chronic Code(s): R94.5 - ABNORMAL RESULTS OF LIVER FUNCTION STUDIES (6) Short bowel syndrome Current Visit: No Status: Chronic Code(s): K91.2 - POSTSURGICAL MALABSORPTION, NOT ELSEWHERE CLASSIFIED (7) Hypomagnesemia Current Visit: Yes Status: Chronic Code(s): E83.42 - HYPOMAGNESEMIA - Discharge Disposition: Home, Self-Care Condition: Stable Prescriptions: New Ciprofloxacin [Cipro 500 MG] 500 mg PO BID #6 tablet Continue Pregabalin [Lyrica] 100 mg PO BID Heparin Flush 500 units/5 ml [Heparin Lock Flush 100 Units/ml 5ml Syringe ] 500 units PORT FLUSH PRN PRN disp.syrin PRN Reason: Iv Port Flush Buspirone HCl 5 mg [Buspar 5 mg] 15 mg PO TID Furosemide 40 mg [Lasix 40 MG] 40 mg PO DAILY PRN PRN PRN Reason: fluid retention Esomeprazole Magnesium [Nexium] 40 mg PO DAILY Spironolactone 25 mg [Aldactone 25 MG] 25 mg PO DAILY PRN PRN PRN Reason: water retention Sertraline HCl [Zoloft] 200 mg PO HS Brexpiprazole [Rexulti] 2 mg PO HS Solifenacin Succinate [Vesicare] 10 mg PO DAILY Mirabegron [Myrbetriq] 50 mg PO DAILY Melatonin 10 mg PO HS Vortioxetine Hydrobromide [Trintellix] 20 mg PO HS Albuterol Sulfate [Ventolin Hfa] 90 mcg IH Q4HPRN PRN PRN Reason: sob Lipase/Protease/Amylase [[place]ce[place] Dr 24,000 Units Capsule] 2 tab PO TID Hydrocodone/APAP 10/325 mg [[place] 10/325 MG Tablet] 1 tab PO QID PRN PRN tablet PRN Reason: Pain Promethazine HCl 25 mg [Phenergan 25 mg] 25 mg PO QIDPRN PRN #60 PRN Reason: Nausea Additional Instructions: DO NOT take zofran while on the ciprofloxacin. OK to take phenergan. Follow up with: KHUSHBU REYNOSO [CONSULTING PHYSICIAN] - 09/06/19 2:20 pm JOSE ZAMORANO [Primary Care Provider] - 1 Week
[2019-08-09 16:12] VITALS: BP 112/59; PULSE 78
== END 2019-08-09 17:25 | disposition home or self-care (01) | DRG 439 ==
LOC: LAB 16:04 → MED SURG 22:23
PROVIDERS: ADMIT Family Medicine; ATTEND Family Medicine
DX: K85.90 Acute pancreatitis without necrosis or infection, unspecified (principal); N39.0 Urinary tract infection, site not specified; K56.7 Ileus, unspecified; K91.2 Postsurgical malabsorption, not elsewhere classified; K50.90 Crohn's disease, unspecified, without complications; N18.3 Chronic kidney disease, stage 3 (moderate); R94.5 Abnormal results of liver function studies; E83.42 Hypomagnesemia; Z93.2 Ileostomy status; Z90.49 Acquired absence of other specified parts of digestive tract; R10.9 Unspecified abdominal pain; G89.29 Other chronic pain
CPT/HCPCS: 36415; 74176; 80053; 81001; 82150; 83690; 83735; 84132; 85025; 85027; 87077; 87086; 87186; 93041; 94762; 96365; 96366; 96374; 99211; J1170; J1642; J2405; J2550; J3475; J3480; A9270-GY

== ENCOUNTER 2019-08-24 08:19 | Inpatient (IN) | payer MEDICARE ==
[2019-08-24] MEDS: Lactated Ringers 1,000 ML IV SCH ×2 (09:14→17:32)
[2019-08-24] MEDS: DILAUDID 2 MG INJECTION IV PRN ×7 (09:14→22:14)
[2019-08-24] MEDS ORDERED: Ventolin Hfa MDI IH PRN (14:21)
[2019-08-24] MEDS ORDERED: Aldactone 25 MG PO PRN (14:21)
[2019-08-24] MEDS ORDERED: PROVENTIL COMMON CANISTER IH PRN (14:48)
[2019-08-24] MEDS ORDERED: PROTEASE PO SCH (15:00)
[2019-08-24] MEDS ORDERED: AMYLASE PO SCH (15:00)
[2019-08-24] MEDS ORDERED: LIPASE PO SCH (15:00)
[2019-08-24] MEDS: PHENERGAN 25 MG PO PRN (15:18)
[2019-08-24] MEDS: BUSPAR 5 MG PO SCH ×2 (15:18→21:41)
[2019-08-24] MEDS: PATIENT OWN MEDICATION PO SCH ×2 (15:33→21:42)
[2019-08-24] MEDS: BENADRYL 25 MG CAPSULE PO PRN (17:39)
[2019-08-24 18:02] LABS: Appearance CLEAR (CLEAR); Bilirubin NEGATIVE (NEGATIVE); Blood NEGATIVE Ery/ul (0-5); Glucose NEGATIVE (NEGATIVE); Ketones NEGATIVE (NEGATIVE); Leukocyte Esterase SMALL (NEGATIVE); Mucus SLIGHT /HPF (NEGATIVE); Nitrite NEGATIVE (NEGATIVE); Protein,Urine Dip NEGATIVE (Negative); Specific Gravity 1.014 (1.005-1.025); Urobilinogen NEGATIVE mg/dL (0-1); WBC 0-2 /HPF (0-5)
[2019-08-24] MEDS: Tums EX 750 MG PO PRN (20:33)
[2019-08-24] MEDS: Protonix 40MG Tablet PO SCH (20:33)
[2019-08-24] MEDS: LYRICA 100MG PO SCH (21:42)
[2019-08-24] MEDS: ZOLOFT 50 MG TABLET PO SCH (21:42)
[2019-08-24] MEDS: Phenergan 25 MG INJ IV PRN (21:42)
[2019-08-24] MEDS ORDERED: NON-FORMULARY ITEM (Melatonin [Melatonin] 10 MG) PO SCH (22:00)
[2019-08-24] MEDS ORDERED: VORTIOXETINE HYDROBROMIDE 20 MG PO SCH (22:00)
[2019-08-24] MEDS ORDERED: NON-FORMULARY ITEM (Sertraline Hcl [Zoloft] 200 MG) PO SCH (22:00)
[2019-08-24] MEDS ORDERED: LYRICA 75 MG CAP PO SCH (22:00)
[2019-08-24] MEDS ORDERED: BREXPIPRAZOLE 2 MG PO SCH (22:00)
[2019-08-24] MEDS ORDERED: PATIENT OWN MEDICATION PO SCH ×3 (22:00)
[2019-08-25] MEDS: DILAUDID 2 MG INJECTION IV PRN ×3 (01:05→07:55)
[2019-08-25] MEDS: Lactated Ringers 1,000 ML IV SCH ×3 (01:10→18:41)
[2019-08-25] MEDS: BENADRYL 25 MG CAPSULE PO PRN ×2 (01:48→11:37)
[2019-08-25] MEDS: Phenergan 25 MG INJ IV PRN ×2 (08:28→14:27)
[2019-08-25 08:33] LABS: Hematocrit 33.8 % (35-47); Hemoglobin 10.7 gm/dl (12.0-16.0); Mean Cell Volume 97.1 fl (78-100); Mean Corpuscular Hemoglobin 30.7 pg (26-32); Mean Corpuscular Hgb Concent. 31.7 g/dl (32-36); Mean Platelet Volume 9.2 fl (7.5-11.0); Platelet Count 266 K/mm3 (150-450); Red Blood Count 3.48 M/mm3 (4.1-5.4); Red Cell Distribution Width 15.8 % (11.5-14.0); White Blood Count 4.8 K/mm3 (4.0-10.5)
[2019-08-25 08:48] LABS: ALBUMIN 3.6 g/dL (3.5-5.0); ALKALINE PHOSPHATASE 89 U/L (38-126); AMYLASE 101 U/L (30-110); ANION GAP 11.9 MEQ/L (5-15); BLOOD UREA NITROGEN 10 mg/dL (7-17); CHLORIDE 104 mmol/L (98-107); Calcium 8.6 mg/dL (8.4-10.2); Carbon Dioxide 27 mmol/L (22-30); Creatinine 1 0.88 mg/dL (0.52-1.04); Glucose 83 mg/dL (74-106); LIPASE 352 U/L (23-300); MAGNESIUM 1.7 mg/dL (1.6-2.3); Potassium 4.7 mmol/L (3.5-5.1); SGOT/AST 26 U/L (14-36); SGPT/ALT 29 U/L (0-35); SODIUM 137 mmol/L (137-145); Total Protein 6.6 g/dL (6.3-8.2)
[2019-08-25] MEDS: PATIENT OWN MEDICATION PO SCH ×4 (09:21→17:12)
[2019-08-25] MEDS: BUSPAR 5 MG PO SCH ×3 (09:21→21:25)
[2019-08-25] MEDS: LYRICA 100MG PO SCH ×2 (09:21→21:25)
[2019-08-25] MEDS: Levofloxacin 500MG/100ML D5W 500 MG/100 ML BAG IV SCH (09:21)
[2019-08-25] MEDS ORDERED: DILAUDID 1 MG/1ML PCA IV PRN (09:41)
--- NOTE | 2019-08-25 09:46 | PCM.HP ---
History of Present Illness - Chief Complaint Chief Complaint: PANCREATITS History of Present Illness: is a 54 year old female pt of mine from [facility] with PMHx Crohn's disease s/p colectomy with ileostomy, subsequent bladder damage and suprapubic catheter , chronic renal failure on IV fluids three times weekly, and chronic pancreatitis who was admitted yesterday with UTI and pancreatitis flare. She had received extra fluids the day before as her amylase and lipase were elevated and her abd pain was worsening; also had nitrites in the urine and had a dose of IV levaquin. Was feeling worse yesterday with higher amylase and lipase so was admitted for more IV fluids and pain control. Pt was nauseated with 10/10 abd pain at home. No fever. No vomiting. - Review of Systems Abdominal/Gastrointestinal: Abdominal Pain, Nausea Psychological: Anxiety, Depression, No Suicidal Ideations All Other Systems: Reviewed and Negative Medications & Allergies Home Medications: Home Medication List Pregabalin [Lyrica] 100 mg PO BID 12/24/16 [History Confirmed 08/24/19] Heparin Flush 500 units/5 ml [Heparin Lock Flush 100 Units/ml 5ml Syringe] 500 units PORT FLUSH PRN PRN disp.syrin 08/10/17 [Rx Confirmed 08/24/19] Buspirone HCl 5 mg [Buspar 5 mg] 15 mg PO TID 01/09/18 [History Confirmed 08/24/19] Furosemide 40 mg [Lasix 40 MG] 40 mg PO DAILY PRN PRN 04/06/18 [History Confirmed 08/24/19] Esomeprazole Magnesium [Nexium] 40 mg PO DAILY 09/07/18 [History Confirmed 08/24] Spironolactone 25 mg [Aldactone 25 MG] 25 mg PO DAILY PRN PRN 09/23/18 [ History Confirmed 08/24/19] Sertraline HCl [Zoloft] 200 mg PO HS 11/06/18 [History Confirmed 08/24/19] Brexpiprazole [Rexulti] 2 mg PO HS 12/11/18 [History Confirmed 08/24/19] Solifenacin Succinate [Vesicare] 10 mg PO DAILY 01/05/19 [History Confirmed ] Mirabegron [Myrbetriq] 50 mg PO DAILY 02/26/19 [History Confirmed 08/24/19] Melatonin 10 mg PO HS 02/27/19 [History Confirmed 08/24/19] Albuterol Sulfate [Ventolin Hfa] 90 mcg IH Q4HPRN PRN 04/12/19 [History Confirmed 08/24/19] Vortioxetine Hydrobromide [Trintellix] 20 mg PO HS 04/12/19 [History Confirmed 08/24/19] Lipase/Protease/Amylase [Concepcion Dr 24,000 Units Capsule] 2 tab PO TID 06/21/19 [ History Confirmed 08/24/19] Hydrocodone/APAP 10/325 mg [[place] 10/325 MG Tablet] 1 tab PO QID PRN PRN tablet 07/25/19 [Rx Confirmed 08/24/19] Promethazine HCl 25 mg [Phenergan 25 mg] 25 mg PO QIDPRN PRN #60 07/25/19 [Rx Confirmed 08/24/19] Ciprofloxacin [Cipro 500 MG] 500 mg PO BID #6 tablet 08/09/19 [Rx Confirmed 08/24/19] Allergies/Adverse Reactions: Allergies Allergy/AdvReac Type Severity Reaction Status Date / Time oxybutynin Allergy Severe Verified 07/21/19 04:30 oxycodone [From Percocet] Allergy Intermediate Hives Verified 07/21/19 04:30 ampicillin Allergy Mild Verified 07/21/19 04:30 erythromycin base Allergy Mild Verified 07/21/19 04:30 [Erythromycin Base] duloxetine HCl Allergy Unknown Tightness Verified 07/21/19 04:30 [From Cymbalta] of Throat - Past Medical History Past Medical History: Yes Neurological History: Peripheral Neuropathy ENT History: No Pertinent History Cardiac History: No Pertinent History Respiratory History: No Pertinent History Endocrine Medical History: Adrenal Insufficiency, Other Musculoskelatal History: Osteoarthritis GI Medical History: Crohns Disease, Pancreatitis, Other History: Renal Disease, Other Pyscho-Social History: Anxiety, Depression Reproductive Disorders: Other Comment: Pt had surgery for ahdesions in the gut and had complications. She has a colostomy and superpubic cather. Pt gets infusions with potassium and magnesium, chronic pancreatitis. - Past Surgical History Past Surgical History: Yes (ileostomy, suprapubic catheter) Neuro Surgical History: No Pertinent History Cardiac History: No Pertinent History Respiratory Surgery: No Pertinent History GI Surgical History: Bowel Surgery, Cholecystectomy Genitourinary Surgical Hx: Other Musculskeletal Surgical Hx: No Pertinent History Female Surgical History: Hysterectomy Other Surgical History: has 120 cm of small bowel, urostomy following compications after surgery to remove adhesions - Social History Smoking Status: Former smoker How long have you smoked: 20 years Exposure to second hand smoke: No Alcohol: None Drug Use: none - Physical Exam Vital Signs: Vital Signs - 24 hr Temp Pulse Resp BP Pulse Ox 08/25/19 07:46 98.1 F 69 16 107/58 98 08/25/19 07:12 98 08/25/19 04:00 97.9 F 70 16 90/50 98 08/24/19 23:37 97.8 F 70 16 93/60 98 08/24/19 20:09 97.8 F 66 16 112/63 99 08/24/19 19:55 98 08/24/19 16:00 98.0 F 71 18 111/60 95 08/24/19 13:18 95 08/24/19 12:00 98.6 F 88 20 107/62 98 General Appearance: moderate distress, alert Neurologic Exam: alert, oriented x 3, cooperative Eye Exam: eyes nml inspection Ears, Nose, Throat Exam: moist mucous membranes Neck Exam: normal inspection, non-tender, No lymphadenopathy Respiratory Exam: normal breath sounds, crackles/rales (RLL), No rhonchi, No wheezing Cardiovascular Exam: regular rate/rhythm, normal heart sounds, No murmur Gastrointestinal/Abdomen Exam: soft, normal bowel sounds, tenderness ( epigastrum and periumbilical), distention (slight at epigastrum and periumbilical), guarding, No mass, No rebound Back Exam: normal inspection, No CVA tenderness, No rash Extremity Exam: normal inspection, No pedal edema, No swelling Skin Exam: normal color, warm, dry, No rash Results - Labs Lab/Micro Results: Lab Results-Last 24 Hours 08/24/19 08/25/19 08/25/19 Range/Units 16:39 08:31 08:31 WBC 4.8 (4.0-10.5) K/mm3 RBC 3.48 L (4.1-5.4) M/mm3 Hgb 10.7 L (12.0-16.0) gm/dl Hct 33.8 L (35-47) % MCV 97.1 (78-100) fl MCH 30.7 (26-32) pg MCHC 31.7 L (32-36) g/dl RDW 15.8 H (11.5-14.0) % Plt Count 266 (150-450) K/mm3 MPV 9.2 (7.5-11.0) fl Sodium 137 (137-145) mmol/L Potassium 4.7 (3.5-5.1) mmol/L Chloride 104 (98-107) mmol/L Carbon Dioxide 27 (22-30) mmol/L Anion Gap 11.9 (5-15) MEQ/L BUN 10 (7-17) mg/dL Creatinine 0.88 (0.52-1.04) mg/dL Estimated GFR > 60.0 ML/MIN Glucose 83 (74-106) mg/dL Calcium 8.6 (8.4-10.2) mg/dL Magnesium 1.7 (1.6-2.3) mg/dL Total Bilirubin 0.20 (0.2-1.3) mg/dL AST 26 (14-36) U/L ALT 29 (0-35) U/L Alkaline Phosphatase 89 (38-126) U/L Serum Total Protein 6.6 (6.3-8.2) g/dL Albumin 3.6 (3.5-5.0) g/dL Amylase 101 (30-110) U/L Lipase 352 H (23-300) U/L Urine Color YELLOW (YELLOW) Urine Appearance CLEAR (CLEAR) Urine pH 8.0 (5-6) Ur Specific [place] 1.014 (1.005-1.025) Urine Protein NEGATIVE (Negative) Urine Ketones NEGATIVE (NEGATIVE) Urine Blood NEGATIVE (0-5) Gregg/ul Urine Nitrite NEGATIVE (NEGATIVE) Urine Bilirubin NEGATIVE (NEGATIVE) Urine Urobilinogen NEGATIVE (0-1) mg/dL Ur Leukocyte Esterase SMALL (NEGATIVE) Urine WBC (Auto) 0-2 (0-5) /HPF Urine RBC (Auto) 6-10 (0-2) /HPF U Epithel Cells (Auto) NONE (FEW) /HPF Urine Bacteria (Auto) NONE (NEGATIVE) /HPF Urine Mucus (Auto) SLIGHT (NEGATIVE) /HPF Urine Culture Reflexed NO (NO) Urine Glucose NEGATIVE (NEGATIVE) mg/dL - Other Procedures and Tests Respiratory Therapy 08/24/19 19:54 Oxygen Oxymizer LPM 3 lpm Assessment/Plan (1) Abdominal pain Current Visit: No Status: Acute Onset Date: ~07/17/18 Qualifiers: Abdominal location: epigastric Assessment & Plan: likely due to pancreatitis, although will keep in mind pt has peptic ulcer disease. Code(s): R10.9 - UNSPECIFIED ABDOMINAL PAIN (2) Pancreatitis Current Visit: No Status: Acute Qualifiers: Chronicity: acute Pancreatitis type: unspecified pancreatitis type Acute pancreatitis complication: no infection or necrosis Qualified Code(s): K85.90 - Acute pancreatitis without necrosis or infection, unspecified Assessment & Plan: rechecking labs. continue IV fluids, although I did turn them down to 100cc/hr due to a little crackle in R lung base. Code(s): K85.90 - ACUTE PANCREATITIS WITHOUT NECROSIS OR INFECTION, UNSP (3) Crohn's disease Current Visit: No Status: Chronic Qualifiers: Gastrointestinal tract location: large intestine Digestive disease complication type: other complication Qualified Code(s): K50.118 - Crohn's disease of large intestine with other complication Code(s): K50.90 - CROHN'S DISEASE, UNSPECIFIED, WITHOUT COMPLICATIONS (4) UTI (urinary tract infection) Current Visit: No Status: Acute Onset Date: ~07/17/18 Qualifiers: Urinary tract infection type: acute cystitis Hematuria presence: without hematuria Qualified Code(s): N30.00 - Acute cystitis without hematuria Assessment & Plan: On IV levaquin day #3 Code(s): N39.0 - URINARY TRACT INFECTION, SITE NOT SPECIFIED (5) Anemia Current Visit: No Status: Chronic Qualifiers: Anemia type: due to chronic kidney disease Code(s): D64.9 - ANEMIA, UNSPECIFIED (6) Elevated liver enzymes Current Visit: No Status: Chronic Code(s): R74.8 - ABNORMAL LEVELS OF OTHER SERUM ENZYMES (7) Hypomagnesemia Current Visit: No Status: Chronic Code(s): E83.42 - HYPOMAGNESEMIA (8) Ileostomy care Current Visit: No Status: Chronic Code(s): Z43.2 - ENCOUNTER FOR ATTENTION TO ILEOSTOMY (9) Peptic ulcer Current Visit: No Status: Chronic Assessment & Plan: will keep pt on PPI Code(s): K27.9 - PEPTIC ULC, SITE UNSP, UNSP AC OR CHR, W/O HEMOR OR PERF
[2019-08-25] MEDS ORDERED: Protonix 40MG Tablet PO SCH (10:00)
[2019-08-25] MEDS ORDERED: NON-FORMULARY ITEM (Esomeprazole Magnesium [Nexium] 40 MG) PO SCH (10:00)
[2019-08-25] MEDS ORDERED: NON-FORMULARY ITEM (Solifenacin Succinate [Vesicare] 10 MG) PO SCH (10:00)
[2019-08-25] MEDS: Morphine PCA 1 MG/ML 30 ML IV PRN ×2 (14:23→21:38)
[2019-08-25] MEDS: Tums EX 750 MG PO PRN ×2 (14:48→18:41)
[2019-08-25] MEDS: ZOLOFT 50 MG TABLET PO SCH (21:26)
[2019-08-25] MEDS: Protonix 40MG Tablet PO SCH (21:26)
[2019-08-26] MEDS: OCEAN Nasal Spray NS PRN ×2 (01:20→04:40)
[2019-08-26] MEDS: Lactated Ringers 1,000 ML IV SCH ×2 (04:30→15:59)
[2019-08-26] MEDS: Phenergan 25 MG INJ IV PRN ×3 (04:41→18:53)
[2019-08-26] MEDS: PATIENT OWN MEDICATION PO SCH ×5 (08:42→17:02)
[2019-08-26] MEDS ORDERED: PROVENTIL 2.5 MG/3 ML NEB IH PRN (09:45)
[2019-08-26] MEDS ORDERED: Magnesium Sulfate 1 GM/2 ML VIAL IV ONE (09:45)
--- NOTE | 2019-08-26 09:49 | PCM.NOTE ---
Date and Time: 08/26/19945 Subjective Assessment: Pt is feeling better, 6/10 pain, would like something other than CLD - Review of Systems Constitutional: No Fever Abdominal/Gastrointestinal: Abdominal Pain Objective Exam General Appearance: mild distress, alert Neurologic Exam: oriented x 3, cooperative Skin Exam: normal color, warm, dry, No rash Respiratory Exam: normal breath sounds, crackles/rales (bibasilar), wheezing ( faint exp), No rhonchi Cardiovascular Exam: regular rate/rhythm, normal heart sounds, No murmur Gastrointestinal/Abdomen Exam: soft, tenderness (epig, periumb, LUQ), guarding, No normal bowel sounds (hypoactive but present), No distention, No mass, No rebound Extremity Exam: other (trace LE edema bilat) Back Exam: normal inspection, No rash OBJECTIVE DATA Vital Signs: Vital Signs - 24 hr Temp Pulse Resp BP Pulse Ox 08/26/19 09:27 94 L 08/26/19 07:23 94 L 08/26/19 07:12 97.4 F 69 12 106/65 95 08/26/19 06:23 84 L 08/26/19 05:38 94 L 08/26/19 04:05 97.8 F 66 20 108/55 94 L 08/26/19 02:23 95 08/26/19 01:38 95 08/25/19 23:55 97.9 F 66 20 99/58 95 08/25/19 22:23 95 08/25/19 21:38 95 08/25/19 20:15 98.6 F 71 20 102/57 95 08/25/19 18:50 93 L 08/25/19 18:23 95 08/25/19 16:00 97.9 F 83 14 113/59 91 L 08/25/19 14:31 97 08/25/19 14:23 97 08/25/19 12:00 97.8 F 81 13 99/51 94 L 08/25/19 10:03 98 Pain Assessment - Last Documented Pain Intensity 8 Pain Scale Used 0-10 Pain Scale Intake and Output: Intake & Output 08/23/19 08/24/19 08/25/19 08/26/19 11:59 11:59 11:59 11:59 Intake Total 1250 4462 5562 Output Total 3920 5945 Balance 0607 654 0712 Weight 62.8 kg Assessment/Plan (1) Pancreatitis Current Visit: No Status: Acute Qualifiers: Chronicity: acute Pancreatitis type: unspecified pancreatitis type Acute pancreatitis complication: no infection or necrosis Qualified Code(s): K85.90 - Acute pancreatitis without necrosis or infection, unspecified Assessment & Plan: improved clinically and per labs yesterday. Her end point is not feeling "fine " but improved enough to go home; has some procedures pending (Gtube etc) with GI in [place]. decreasing fluids as she has some bibasilar crackles. check labs today. if feeling better and lipase normalized, could possibly go home this afternoon. Code(s): K85.90 - ACUTE PANCREATITIS WITHOUT NECROSIS OR INFECTION, UNSP (2) Abdominal pain Current Visit: No Status: Acute Onset Date: ~07/17/18 Qualifiers: Abdominal location: epigastric Code(s): R10.9 - UNSPECIFIED ABDOMINAL PAIN (3) Crohn's disease Current Visit: No Status: Chronic Qualifiers: Gastrointestinal tract location: large intestine Digestive disease complication type: other complication Qualified Code(s): K50.118 - Crohn's disease of large intestine with other complication Code(s): K50.90 - CROHN'S DISEASE, UNSPECIFIED, WITHOUT COMPLICATIONS (4) UTI (urinary tract infection) Current Visit: No Status: Acute Onset Date: ~07/17/18 Qualifiers: Urinary tract infection type: acute cystitis Hematuria presence: without hematuria Qualified Code(s): N30.00 - Acute cystitis without hematuria Assessment & Plan: on IV levaquin day #3. Code(s): N39.0 - URINARY TRACT INFECTION, SITE NOT SPECIFIED (5) Anemia Current Visit: No Status: Chronic Qualifiers: Anemia type: due to chronic kidney disease Code(s): D64.9 - ANEMIA, UNSPECIFIED (6) Elevated liver enzymes Current Visit: No Status: Chronic Code(s): R74.8 - ABNORMAL LEVELS OF OTHER SERUM ENZYMES (7) Hypomagnesemia Current Visit: No Status: Chronic Assessment & Plan: Mg low normal, 2g IV today Code(s): E83.42 - HYPOMAGNESEMIA (8) Ileostomy care Current Visit: No Status: Chronic Code(s): Z43.2 - ENCOUNTER FOR ATTENTION TO ILEOSTOMY (9) Peptic ulcer Current Visit: No Status: Chronic Code(s): K27.9 - PEPTIC [facility], SITE UNSP, UNSP AC OR CHR, W/O HEMOR OR PERF
[2019-08-26] MEDS: Levofloxacin 500MG/100ML D5W 500 MG/100 ML BAG IV SCH (09:59)
[2019-08-26] MEDS: LYRICA 100MG PO SCH ×2 (10:00→21:00)
[2019-08-26] MEDS: BUSPAR 5 MG PO SCH ×3 (10:00→21:00)
[2019-08-26 10:22] LABS: Hematocrit 32.9 % (35-47); Hemoglobin 10.4 gm/dl (12.0-16.0); Mean Cell Volume 97.6 fl (78-100); Mean Corpuscular Hemoglobin 30.9 pg (26-32); Mean Corpuscular Hgb Concent. 31.6 g/dl (32-36); Mean Platelet Volume 9.2 fl (7.5-11.0); Platelet Count 267 K/mm3 (150-450); Red Blood Count 3.37 M/mm3 (4.1-5.4); Red Cell Distribution Width 15.7 % (11.5-14.0); White Blood Count 5.1 K/mm3 (4.0-10.5)
[2019-08-26] MEDS: BENADRYL 25 MG CAPSULE PO PRN (10:23)
[2019-08-26 10:39] LABS: ALBUMIN 3.6 g/dL (3.5-5.0); ALKALINE PHOSPHATASE 77 U/L (38-126); AMYLASE 94 U/L (30-110); ANION GAP 10.2 MEQ/L (5-15); BLOOD UREA NITROGEN 8 mg/dL (7-17); CHLORIDE 106 mmol/L (98-107); Calcium 8.5 mg/dL (8.4-10.2); Carbon Dioxide 28 mmol/L (22-30); Creatinine 1 0.87 mg/dL (0.52-1.04); Glucose 111 mg/dL (74-106); LIPASE 184 U/L (23-300); MAGNESIUM 1.4 mg/dL (1.6-2.3); SGOT/AST 23 U/L (14-36); SGPT/ALT 23 U/L (0-35); SODIUM 139 mmol/L (137-145); Total Protein 6.5 g/dL (6.3-8.2)
[2019-08-26] MEDS: Magnesium 1 Gm / 100 Ml D5W*** 100 ML IV SCH ×2 (10:58→12:17)
[2019-08-26] MEDS: Morphine PCA 1 MG/ML 30 ML IV PRN (17:32)
[2019-08-26] MEDS: ZOLOFT 50 MG TABLET PO SCH (21:00)
[2019-08-26] MEDS: Protonix 40MG Tablet PO SCH (21:00)
[2019-08-27] MEDS: Lactated Ringers 1,000 ML IV SCH (03:39)
[2019-08-27] MEDS: Phenergan 25 MG INJ IV PRN (04:10)
[2019-08-27 04:45] LABS: Hematocrit 30.6 % (35-47); Hemoglobin 9.8 gm/dl (12.0-16.0); Mean Cell Volume 98.7 fl (78-100); Mean Corpuscular Hemoglobin 31.6 pg (26-32); Mean Platelet Volume 9.5 fl (7.5-11.0); Platelet Count 276 K/mm3 (150-450)
[2019-08-27 04:52] LABS: ALBUMIN 3.3 g/dL (3.5-5.0); ALKALINE PHOSPHATASE 76 U/L (38-126); AMYLASE 81 U/L (30-110); ANION GAP 11.1 MEQ/L (5-15); BLOOD UREA NITROGEN 6 mg/dL (7-17); CHLORIDE 105 mmol/L (98-107); Calcium 8.2 mg/dL (8.4-10.2); Carbon Dioxide 27 mmol/L (22-30); Creatinine 1 0.97 mg/dL (0.52-1.04); Glucose 89 mg/dL (74-106); LIPASE 171 U/L (23-300); MAGNESIUM 1.8 mg/dL (1.6-2.3); Potassium 4.6 mmol/L (3.5-5.1); SGOT/AST 23 U/L (14-36); SGPT/ALT 21 U/L (0-35); SODIUM 139 mmol/L (137-145)
[2019-08-27] MEDS: PATIENT OWN MEDICATION PO SCH ×3 (08:17→09:22)
[2019-08-27] MEDS: PHENERGAN 25 MG PO PRN (08:37)
--- NOTE | 2019-08-27 08:58 | PCM.DS ---
Discharge Summary Date of Admission: 08/24/19 08:19 Admitting Physician: JOSE ZAMORANO Primary Care Provider: JOSE ZAMORANO Allergies Allergies oxybutynin Allergy (Severe, Verified 07/21/19 04:30) pharyngeal swelling oxycodone [From Percocet] Allergy (Intermediate, Verified 07/21/19 04:30) Hives Pt. stated " Immediatly after taking it I felt like I was coming out of my skin." ampicillin Allergy (Mild, Verified 07/21/19 04:30) hives erythromycin base [Erythromycin Base] Allergy (Mild, Verified 07/21/19 04:30) Hives duloxetine HCl [From Cymbalta] Allergy (Unknown, Verified 07/21/19 04:30) Tightness of Throat Hospital Summary - Hospital Course Hospital Course: Pt is 54 yo female pt of mine with Crohn's disease and colon resection with ileiostomy, suprapubic catheter, chronic renal insufficiency, and chronic pancreatitis who was admitted with pancreatitis acutely. Her lipase was elevated; returned to normal on hospital day #3. She received IV fluids, Mg for her chronic hypomagnesemia, and IV dilauded and changed to IV morphine for pain. Pt is feeling nauseated, 6/10 pain in her abdomen. Interested in Chantix. - Vitals & Intake/Output Vital Signs: Vital Signs Temperature 97.3 F 08/27/19 07:20 Pulse Rate 81 08/27/19 07:20 Respiratory Rate 20 08/27/19 07:20 Blood Pressure 113/57 08/27/19 07:20 O2 Sat by Pulse Oximetry 95 08/27/19 08:00 Intake & Output: Intake & Output 08/24/19 08/25/19 08/26/19 08/27/19 11:59 11:59 11:59 11:59 Intake Total 1250 4462 5562 6039 Output Total 3600 9235 7345 Balance 0587 880 1532 2564 Weight 62.8 kg 62.8 kg - Lab Result Diagrams: 08/27/19 04:15 08/27/19 04:15 Lab Results-Last 24 Hrs: Lab Results-Last 24 Hours 08/26/19 08/26/19 08/27/19 Range/Units 10:16 10:16 04:15 WBC 5.1 5.0 (4.0-10.5) K/mm3 RBC 3.37 L 3.10 L (4.1-5.4) M/mm3 Hgb 10.4 L 9.8 L (12.0-16.0) gm/dl Hct 32.9 L 30.6 L (35-47) % MCV 97.6 98.7 (78-100) fl MCH 30.9 31.6 (26-32) pg MCHC 31.6 L 32.0 (32-36) g/dl RDW 15.7 H 16.0 H (11.5-14.0) % Plt Count 267 276 (150-450) K/mm3 MPV 9.2 9.5 (7.5-11.0) fl Sodium 139 (137-145) mmol/L Potassium 5.0 (3.5-5.1) mmol/L Chloride 106 (98-107) mmol/L Carbon Dioxide 28 (22-30) mmol/L Anion Gap 10.2 (5-15) MEQ/L BUN 8 (7-17) mg/dL Creatinine 0.87 (0.52-1.04) mg/dL Estimated GFR > 60.0 ML/MIN Glucose 111 H (74-106) mg/dL Calcium 8.5 (8.4-10.2) mg/dL Magnesium 1.4 L* (1.6-2.3) mg/dL Total Bilirubin 0.20 (0.2-1.3) mg/dL AST 23 (14-36) U/L ALT 23 (0-35) U/L Alkaline Phosphatase 77 (38-126) U/L Serum Total Protein 6.5 (6.3-8.2) g/dL Albumin 3.6 (3.5-5.0) g/dL Amylase 94 (30-110) U/L Lipase 184 (23-300) U/L 08/27/19 Range/Units 04:15 WBC (4.0-10.5) K/mm3 RBC (4.1-5.4) M/mm3 Hgb (12.0-16.0) gm/dl Hct (35-47) % MCV (78-100) fl MCH (26-32) pg MCHC (32-36) g/dl RDW (11.5-14.0) % Plt Count (150-450) K/mm3 MPV (7.5-11.0) fl Sodium 139 (137-145) mmol/L Potassium 4.6 (3.5-5.1) mmol/L Chloride 105 (98-107) mmol/L Carbon Dioxide 27 (22-30) mmol/L Anion Gap 11.1 (5-15) MEQ/L BUN 6 L (7-17) mg/dL Creatinine 0.97 (0.52-1.04) mg/dL Estimated GFR > 60.0 ML/MIN Glucose 89 (74-106) mg/dL Calcium 8.2 L (8.4-10.2) mg/dL Magnesium 1.8 (1.6-2.3) mg/dL Total Bilirubin 0.10 L (0.2-1.3) mg/dL AST 23 (14-36) U/L ALT 21 (0-35) U/L Alkaline Phosphatase 76 (38-126) U/L Serum Total Protein 6.0 L (6.3-8.2) g/dL Albumin 3.3 L (3.5-5.0) g/dL Amylase 81 (30-110) U/L Lipase 171 (23-300) U/L - Procedures and Test Procedures and Tests throughout Hospitalization: Therapy Orders & Screens 08/24/19 19:54 Oxygen Oxymizer LPM 3 lpm Comment: Diagnosis: PANCREATITS 08/26/19 07:23 Oxygen NASAL CANNULA 2 lpm Comment: Diagnosis: PANCREATITS Respiratory Therapy Assessment DAILY Comment: Diagnosis: PANCREATITS Discharge Exam General Appearance: no apparent distress, alert Neurologic Exam: oriented x 3, cooperative Eye Exam: eyes nml inspection Ears, Nose, Throat Exam: moist mucous membranes Respiratory Exam: normal breath sounds, lungs clear, No crackles/rales, No rhonchi, No wheezing Cardiovascular Exam: regular rate/rhythm, normal heart sounds, No murmur Gastrointestinal/Abdomen Exam: soft, normal bowel sounds, tenderness (epigastrum ), guarding, No distention, No mass, No rebound Back Exam: normal inspection, No rash Extremity Exam: normal inspection, No pedal edema, No swelling Skin Exam: normal color, warm, dry, No rash Final Diagnosis/Problem List - Final Discharge Diagnosis/Problem (1) Pancreatitis Current Visit: No Status: Acute Assessment & Plan: Acute episode is resolved; She is following with GI in [place] for chronic issues. Stay on CLD with soups per their instructions. Code(s): K85.90 - ACUTE PANCREATITIS WITHOUT NECROSIS OR INFECTION, UNSP (2) Abdominal pain Current Visit: No Status: Chronic Onset Date: ~07/17/18 Code(s): R10.9 - UNSPECIFIED ABDOMINAL PAIN (3) Crohn's disease Current Visit: No Status: Chronic Code(s): K50.90 - CROHN'S DISEASE, UNSPECIFIED, WITHOUT COMPLICATIONS (4) UTI (urinary tract infection) Current Visit: No Status: Resolved Onset Date: ~07/17/18 Assessment & Plan: Will have her finish 4 more days of po levaquin. Code(s): N39.0 - URINARY TRACT INFECTION, SITE NOT SPECIFIED (5) Anemia Current Visit: No Status: Chronic Code(s): D64.9 - ANEMIA, UNSPECIFIED (6) Elevated liver enzymes Current Visit: No Status: Chronic Code(s): R74.8 - ABNORMAL LEVELS OF OTHER SERUM ENZYMES (7) Hypomagnesemia Current Visit: No Status: Chronic Assessment & Plan: will give 2g IV mg again today. Code(s): E83.42 - HYPOMAGNESEMIA (8) Ileostomy care Current Visit: No Status: Chronic Code(s): Z43.2 - ENCOUNTER FOR ATTENTION TO ILEOSTOMY (9) Peptic ulcer Current Visit: No Status: Chronic Code(s): K27.9 - PEPTIC ULC, SITE UNSP, UNSP AC OR CHR, W/O HEMOR OR PERF (10) Tobacco abuse Current Visit: Yes Status: Acute Assessment & Plan: [facility] Code(s): Z72.0 - TOBACCO USE (11) Chronic kidney disease (CKD) stage G3a/A1, moderately decreased glomerular filtration rate (GFR) between 45-59 mL/min/1.73 square meter and albuminuria creatinine ratio less than 30 mg/g Current Visit: No Status: Chronic Assessment & Plan: she will go to infusion on Friday Code(s): N18.3 - CHRONIC KIDNEY DISEASE, STAGE 3 (MODERATE) - Discharge Disposition: Home, Self-Care Condition: Stable Prescriptions: New Levofloxacin [Levaquin] 500 mg PO DAILY #4 tablet Continue Pregabalin [Lyrica] 100 mg PO BID Heparin Flush 500 units/5 ml [Heparin Lock Flush 100 Units/ml 5ml Syringe ] 500 units PORT FLUSH PRN PRN disp.syrin PRN Reason: Iv Port Flush Buspirone HCl 5 mg [Buspar 5 mg] 15 mg PO TID Furosemide 40 mg [Lasix 40 MG] 40 mg PO DAILY PRN PRN PRN Reason: fluid retention Esomeprazole Magnesium [Nexium] 40 mg PO DAILY Spironolactone 25 mg [Aldactone 25 MG] 25 mg PO DAILY PRN PRN PRN Reason: water retention Sertraline HCl [Zoloft] 200 mg PO HS Brexpiprazole [Rexulti] 2 mg PO HS Solifenacin Succinate [Vesicare] 10 mg PO DAILY Mirabegron [Myrbetriq] 50 mg PO DAILY Melatonin 10 mg PO HS Vortioxetine Hydrobromide [Trintellix] 20 mg PO HS Albuterol Sulfate [Ventolin Hfa] 90 mcg IH Q4HPRN PRN PRN Reason: sob Lipase/Protease/Amylase [Concepcion Dr 24,000 Units Capsule] 2 tab PO AC Hydrocodone/APAP 10/325 mg [[place] 10/325 MG Tablet] 1 tab PO QID PRN PRN tablet PRN Reason: Pain Promethazine HCl 25 mg [Phenergan 25 mg] 25 mg PO QIDPRN PRN #60 PRN Reason: Nausea Discontinued Ciprofloxacin [Cipro 500 MG] 500 mg PO BID #6 tablet Follow up with: JOSE ZAMORANO [Primary Care Provider] - 1 Week
[2019-08-27] MEDS ORDERED: Magnesium Sulfate 1 GM/2 ML VIAL IV ONE (09:15)
[2019-08-27] MEDS: BUSPAR 5 MG PO SCH (09:22)
[2019-08-27] MEDS: LYRICA 100MG PO SCH (09:22)
[2019-08-27] MEDS: Magnesium 1 Gm / 100 Ml D5W*** 100 ML IV SCH ×2 (09:22→09:56)
[2019-08-27] MEDS: Morphine PCA 1 MG/ML 30 ML IV PRN (09:53)
[2019-08-27] MEDS: Levofloxacin 500MG/100ML D5W 500 MG/100 ML BAG IV SCH (10:55)
[2019-08-27 11:45] VITALS: BP 118/73; PULSE 82; O2SAT 95
== END 2019-08-27 12:06 | disposition home or self-care (01) | DRG 439 ==
LOC: MED SURG 08:19
PROVIDERS: ADMIT Family Medicine; ATTEND Family Medicine
DX: K85.90 Acute pancreatitis without necrosis or infection, unspecified (principal); N39.0 Urinary tract infection, site not specified; K50.90 Crohn's disease, unspecified, without complications; N18.3 Chronic kidney disease, stage 3 (moderate); Z93.2 Ileostomy status; R10.9 Unspecified abdominal pain; D64.9 Anemia, unspecified; R74.8 Abnormal levels of other serum enzymes; E83.42 Hypomagnesemia; K27.9 Peptic ulcer, site unspecified, unspecified as acute or chronic, without hemorrhage or perforation; Z72.0 Tobacco use; Z79.899 Other long term (current) drug therapy
CPT/HCPCS: 36415; 36591; 80053; 81001; 82150; 83690; 83735; 85027; 94640; 94760; 94762; 99211; J1170; J1642; J1956; J2270; J2550; J3475; A9270-GY

== ENCOUNTER 2019-09-03 12:02 | Inpatient (IN) | payer MEDICARE ==
[2019-09-03] MEDS: Morphine PCA 1 MG/ML 30 ML IV PRN ×2 (13:13→21:20)
[2019-09-03] MEDS: Lactated Ringers 1,000 ML IV SCH ×2 (13:15→22:20)
[2019-09-03] MEDS: Phenergan 25 MG INJ IV PRN ×2 (13:15→20:58)
[2019-09-03 14:08] LABS: Absolute Neutrophil Ct (ANC) 3.71 (1.4-6.9); Basophil (Absolute #) 0.07 (0-0.4); Eosinophil % 6.1 % (0.00-5.0); Eosinophil (Absolute #) 0.42 (0-0.5); Hematocrit 37.6 % (35-47); Hemoglobin 12.5 gm/dl (12.0-16.0); Lymphocyte (Absolute #) 2.19 (1.0-4.6); Lymphocytes % 31.7 % (24.0-44.0); Mean Cell Volume 93.5 fl (78-100); Mean Corpuscular Hemoglobin 31.1 pg (26-32); Mean Corpuscular Hgb Concent. 33.2 g/dl (32-36); Mean Platelet Volume 9.1 fl (7.5-11.0); Monocyte (Absolute #) 0.52 (0.0-1.3); Monocytes % 7.5 % (0.0-12.0); Neutrophil % 53.7 % (36.0-66.0); Platelet Count 303 K/mm3 (150-450); Red Blood Count 4.02 M/mm3 (4.1-5.4); Red Cell Distribution Width 15.7 % (11.5-14.0); White Blood Count 6.9 K/mm3 (4.0-10.5)
[2019-09-03 14:21] LABS: ALBUMIN 4.6 g/dL (3.5-5.0); ALKALINE PHOSPHATASE 103 U/L (38-126); AMYLASE 132 U/L (30-110); ANION GAP 16.7 MEQ/L (5-15); BLOOD UREA NITROGEN 15 mg/dL (7-17); CHLORIDE 100 mmol/L (98-107); Calcium 9.2 mg/dL (8.4-10.2); Carbon Dioxide 23 mmol/L (22-30); Creatinine 1 0.99 mg/dL (0.52-1.04); Glucose 108 mg/dL (74-106); LIPASE 459 U/L (23-300); MAGNESIUM 1.9 mg/dL (1.6-2.3); Potassium 4.1 mmol/L (3.5-5.1); SGOT/AST 31 U/L (14-36); SGPT/ALT 28 U/L (0-35); SODIUM 136 mmol/L (137-145)
[2019-09-03] MEDS ORDERED: Narcan 0.4 MG/ML IV PRN (19:08)
[2019-09-03] MEDS: ZOLOFT 50 MG TABLET PO SCH (20:59)
[2019-09-03] MEDS: LYRICA 100MG PO SCH (20:59)
[2019-09-03] MEDS: BUSPAR 5 MG PO SCH (21:00)
[2019-09-03] MEDS ORDERED: NON-FORMULARY ITEM PO SCH ×2 (22:00)
[2019-09-03] MEDS ORDERED: NON-FORMULARY ITEM PO ONE (22:00)
[2019-09-04] MEDS: Morphine PCA 1 MG/ML 30 ML IV PRN ×3 (05:38→18:07)
[2019-09-04] MEDS: Phenergan 25 MG INJ IV PRN ×3 (06:04→18:11)
[2019-09-04] MEDS ORDERED: MEDICATION INTERVENTION MC SCH (07:45)
[2019-09-04] MEDS ORDERED: Aldactone 25 MG PO PRN (07:58)
[2019-09-04] MEDS ORDERED: Ventolin Hfa MDI IH PRN (07:58)
[2019-09-04] MEDS ORDERED: PROVENTIL COMMON CANISTER IH PRN (08:02)
[2019-09-04] MEDS: Lactated Ringers 1,000 ML IV SCH (08:19)
[2019-09-04] MEDS: PATIENT OWN MEDICATION PO SCH ×7 (09:48→21:35)
[2019-09-04] MEDS: BUSPAR 5 MG PO SCH ×3 (09:48→21:24)
[2019-09-04] MEDS: Protonix 40MG Tablet PO SCH (09:49)
[2019-09-04] MEDS: LYRICA 100MG PO SCH ×2 (09:49→21:25)
[2019-09-04] MEDS ORDERED: NON-FORMULARY ITEM (Esomeprazole Magnesium [Nexium] 40 MG) PO SCH (10:00)
[2019-09-04] MEDS ORDERED: NON-FORMULARY ITEM PO SCH ×2 (10:00→22:00)
[2019-09-04] MEDS ORDERED: NON-FORMULARY ITEM (Solifenacin Succinate [Vesicare] 10 MG) PO SCH (10:00)
[2019-09-04] MEDS ORDERED: AMYLASE PO SCH (11:30)
[2019-09-04] MEDS ORDERED: LIPASE PO SCH (11:30)
[2019-09-04] MEDS ORDERED: PROTEASE PO SCH (11:30)
[2019-09-04] MEDS: ENOXAPARIN SODIUM SQ SCH (12:01)
[2019-09-04 12:09] LABS: Hematocrit 34.6 % (35-47); Hemoglobin 10.8 gm/dl (12.0-16.0); Mean Cell Volume 96.6 fl (78-100); Mean Corpuscular Hemoglobin 30.2 pg (26-32); Mean Corpuscular Hgb Concent. 31.2 g/dl (32-36); Mean Platelet Volume 9.4 fl (7.5-11.0); Platelet Count 277 K/mm3 (150-450); Red Blood Count 3.58 M/mm3 (4.1-5.4); Red Cell Distribution Width 15.9 % (11.5-14.0); White Blood Count 6.6 K/mm3 (4.0-10.5)
--- NOTE | 2019-09-04 13:05 | PCM.NOTE ---
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 She declined an increase in her dose and will see how things are going today. - Review of Systems Constitutional: No Fever Abdominal/Gastrointestinal: Abdominal Pain Objective Exam General Appearance: mild distress, alert Neurologic Exam: oriented x 3, cooperative Skin Exam: normal color, warm, dry, No rash Eye Exam: eyes nml inspection Ears, Nose, Throat Exam: moist mucous membranes Neck Exam: normal inspection Respiratory Exam: normal breath sounds, lungs clear, No crackles/rales, No rhonchi, No wheezing Cardiovascular Exam: regular rate/rhythm, normal heart sounds, No murmur Gastrointestinal/Abdomen Exam: soft, normal bowel sounds, tenderness (epigastrum , LUQ, LLQ), guarding, No distention, No rebound Extremity Exam: No pedal edema, No swelling Back Exam: normal inspection, No rash OBJECTIVE DATA Vital Signs: Vital Signs - 24 hr Temp Pulse Resp BP Pulse Ox 09/04/19 12:00 98.2 F 81 16 107/62 97 09/04/19 10:51 95 09/04/19 09:38 99 09/04/19 09:20 98 09/04/19 09:13 98 09/04/19 08:00 97.4 F 69 18 104/59 98 09/04/19 07:00 98 09/04/19 06:00 14 09/04/19 05:38 97 09/04/19 05:20 97 09/04/19 05:13 98 09/04/19 04:00 97.4 F 68 16 103/58 97 09/04/19 02:00 14 09/04/19 01:20 98 09/04/19 01:13 98 09/03/19 23:55 97.4 F 60 15 102/55 98 09/03/19 22:00 14 09/03/19 21:20 98 09/03/19 21:13 98 09/03/19 20:29 97.6 F 77 16 111/59 95 09/03/19 19:27 97 09/03/19 18:00 16 09/03/19 17:21 97.5 F 96 H 16 110/61 95 09/03/19 17:13 93 L 09/03/19 16:00 98.4 F 95 H 122/80 96 09/03/19 13:13 96 Pain Assessment - Last Documented Pain Intensity 5 Pain Scale Used 0-10 Pain Scale Intake and Output: Intake & Output 09/02/19 09/03/19 09/04/19 09/05/19 11:59 11:59 11:59 11:59 Intake Total 4177 Output Total 3100 Balance 1077 Weight 66.9 kg Lab Results: Lab Results-Last 24 Hours 09/03/19 09/03/19 09/04/19 Range/Units 14:06 14:06 11:45 WBC 6.9 6.6 (4.0-10.5) K/mm3 RBC 4.02 L 3.58 L (4.1-5.4) M/mm3 Hgb 12.5 10.8 L (12.0-16.0) gm/dl Hct 37.6 34.6 L (35-47) % MCV 93.5 96.6 (78-100) fl MCH 31.1 30.2 (26-32) pg MCHC 33.2 31.2 L (32-36) g/dl RDW 15.7 H 15.9 H (11.5-14.0) % Plt Count 303 277 (150-450) K/mm3 MPV 9.1 9.4 (7.5-11.0) fl Gran % 53.7 (36.0-66.0) % Eos # (Auto) 0.42 (0-0.5) Absolute Lymphs (auto) 2.19 (1.0-4.6) Absolute Monos (auto) 0.52 (0.0-1.3) Lymphocytes % 31.7 (24.0-44.0) % Monocytes % 7.5 (0.0-12.0) % Eosinophils % 6.1 H (0.00-5.0) % Basophils % 1.0 (0.0-0.4) % Absolute Granulocytes 3.71 (1.4-6.9) Basophils # 0.07 (0-0.4) Sodium 136 L (137-145) mmol/L Potassium 4.1 (3.5-5.1) mmol/L Chloride 100 (98-107) mmol/L Carbon Dioxide 23 (22-30) mmol/L Anion Gap 16.7 H (5-15) MEQ/L BUN 15 (7-17) mg/dL Creatinine 0.99 (0.52-1.04) mg/dL Estimated GFR > 60.0 ML/MIN Glucose 108 H (74-106) mg/dL Calcium 9.2 (8.4-10.2) mg/dL Magnesium 1.9 (1.6-2.3) mg/dL Total Bilirubin 0.50 (0.2-1.3) mg/dL AST 31 (14-36) U/L ALT 28 (0-35) U/L Alkaline Phosphatase 103 (38-126) U/L Serum Total Protein 8.0 (6.3-8.2) g/dL Albumin 4.6 (3.5-5.0) g/dL Amylase 132 H (30-110) U/L Lipase 459 H (23-300) U/L Assessment/Plan (1) Pancreatitis Current Visit: No Status: Chronic Qualifiers: Chronicity: acute Pancreatitis type: unspecified pancreatitis type Acute pancreatitis complication: no infection or necrosis Qualified Code(s): K85.90 - Acute pancreatitis without necrosis or infection, unspecified Assessment & Plan: acute on chronic. She is going for a procedure in [place] (nerve ablation ) in 3d; plan is to keep her here and improve the pancreatitis until the night before, when she will be discharged to home. Code(s): K85.90 - ACUTE PANCREATITIS WITHOUT NECROSIS OR INFECTION, UNSP (2) Chronic kidney disease (CKD) stage G3a/A1, moderately decreased glomerular filtration rate (GFR) between 45-59 mL/min/1.73 square meter and albuminuria creatinine ratio less than 30 mg/g Current Visit: No Status: Chronic Assessment & Plan: looks good as usual on IVF Code(s): N18.3 - CHRONIC KIDNEY DISEASE, STAGE 3 (MODERATE) (3) Short bowel syndrome Current Visit: No Status: Chronic Assessment & Plan: has to have frequent (2-3x/wk) IV magnesium and potassium. labs pending today. Code(s): K91.2 - POSTSURGICAL MALABSORPTION, NOT ELSEWHERE CLASSIFIED (4) Anemia Current Visit: No Status: Chronic Qualifiers: Anemia type: unspecified type Qualified Code(s): D64.9 - Anemia, unspecified Assessment & Plan: dilutional likely this morning Code(s): D64.9 - ANEMIA, UNSPECIFIED
[2019-09-04 13:46] LABS: ALBUMIN 3.9 g/dL (3.5-5.0); ALKALINE PHOSPHATASE 94 U/L (38-126); AMYLASE 99 U/L (30-110); ANION GAP 13.5 MEQ/L (5-15); BLOOD UREA NITROGEN 13 mg/dL (7-17); CHLORIDE 101 mmol/L (98-107); Calcium 8.6 mg/dL (8.4-10.2); Carbon Dioxide 25 mmol/L (22-30); Creatinine 1 0.87 mg/dL (0.52-1.04); Glucose 82 mg/dL (74-106); LIPASE 207 U/L (23-300); MAGNESIUM 1.7 mg/dL (1.6-2.3); SGOT/AST 34 U/L (14-36); SGPT/ALT 25 U/L (0-35); SODIUM 134 mmol/L (137-145); Total Protein 6.9 g/dL (6.3-8.2)
[2019-09-04 14:07] LABS: Potassium 5.1 mmol/L (3.5-5.1)
[2019-09-04] MEDS: BENADRYL 25 MG CAPSULE PO PRN ×2 (14:19→21:25)
[2019-09-04] MEDS: Sodium Chloride 0.9% 1000 ML 1,000 ML IV SCH (14:19)
[2019-09-04] MEDS: ZOLOFT 50 MG TABLET PO SCH (21:24)
[2019-09-04] MEDS: NON-FORMULARY ITEM (Melatonin [Melatonin] 10 MG) PO SCH (21:25)
[2019-09-05] MEDS: Sodium Chloride 0.9% 1000 ML 1,000 ML IV SCH ×2 (00:11→11:17)
[2019-09-05] MEDS: Morphine PCA 1 MG/ML 30 ML IV PRN ×5 (02:07→23:44)
[2019-09-05] MEDS: Phenergan 25 MG INJ IV PRN ×3 (04:55→19:52)
[2019-09-05 05:13] LABS: Hematocrit 35.1 % (35-47); Hemoglobin 11.1 gm/dl (12.0-16.0); Mean Cell Volume 97.2 fl (78-100); Mean Corpuscular Hemoglobin 30.7 pg (26-32); Mean Corpuscular Hgb Concent. 31.6 g/dl (32-36); Mean Platelet Volume 9.5 fl (7.5-11.0); Platelet Count 296 K/mm3 (150-450); Red Blood Count 3.61 M/mm3 (4.1-5.4); Red Cell Distribution Width 16.1 % (11.5-14.0); White Blood Count 8.4 K/mm3 (4.0-10.5)
[2019-09-05 05:46] LABS: ALKALINE PHOSPHATASE 103 U/L (38-126); AMYLASE 95 U/L (30-110); ANION GAP 13.6 MEQ/L (5-15); BLOOD UREA NITROGEN 9 mg/dL (7-17); CHLORIDE 102 mmol/L (98-107); Calcium 8.5 mg/dL (8.4-10.2); Carbon Dioxide 25 mmol/L (22-30); Creatinine 1 0.89 mg/dL (0.52-1.04); Glucose 86 mg/dL (74-106); LIPASE 227 U/L (23-300); MAGNESIUM 1.5 mg/dL (1.6-2.3); Potassium 4.5 mmol/L (3.5-5.1); SGOT/AST 49 U/L (14-36); SGPT/ALT 36 U/L (0-35); SODIUM 136 mmol/L (137-145)
[2019-09-05] MEDS: PATIENT OWN MEDICATION PO SCH ×8 (07:49→22:11)
[2019-09-05] MEDS: PATIENT OWN MEDICATION PO PRN ×2 (07:50→16:26)
[2019-09-05] MEDS: ONDANSETRON HCL PO PRN ×2 (08:19→22:43)
[2019-09-05] MEDS ORDERED: NON-FORMULARY ITEM PO SCH (10:00)
[2019-09-05] MEDS: BENADRYL 25 MG CAPSULE PO PRN (10:27)
--- NOTE | 2019-09-05 12:24 | PCM.NOTE ---
Date and Time: 09/05/19 1220 Subjective Assessment: She is nauseated and was vomiting this morning. Has had 575 cc out per ostomy and suprapubic catheter this morning (5h). - Review of Systems Constitutional: No Fever Abdominal/Gastrointestinal: Abdominal Pain, Nausea, Vomiting Objective Exam General Appearance: moderate distress, alert Neurologic Exam: oriented x 3, cooperative Skin Exam: normal color, warm, dry, No rash Respiratory Exam: normal breath sounds, lungs clear, No crackles/rales, No rhonchi, No wheezing Cardiovascular Exam: regular rate/rhythm, normal heart sounds, No murmur Gastrointestinal/Abdomen Exam: soft, tenderness (LUQ, epigastrum), guarding, No normal bowel sounds (hypoactive but present), No distention, No mass, No rebound Extremity Exam: swelling (trace pretibial edema bilat) Back Exam: normal inspection, No rash OBJECTIVE DATA Vital Signs: Vital Signs - 24 hr Temp Pulse Resp BP Pulse Ox 09/05/19 12:00 97.9 F 86 16 92/55 95 09/05/19 08:22 96 09/05/19 08:00 98.9 F 85 12 112/61 97 09/05/19 07:14 98 09/05/19 05:38 96 09/05/19 04:18 98.5 F 85 16 97/58 96 09/05/19 02:07 97 09/05/19 01:38 97 09/04/19 23:40 98.0 F 83 16 109/56 97 09/04/19 21:38 96 09/04/19 20:12 98.0 F 80 18 114/92 96 09/04/19 20:00 96 09/04/19 18:07 97 09/04/19 16:00 97.9 F 79 16 105/61 97 09/04/19 14:51 96 09/04/19 13:38 97 Pain Assessment - Last Documented Pain Intensity 8 Pain Scale Used 0-10 Pain Scale Intake and Output: Intake & Output 09/03/19 09/04/19 09/05/19 09/06/19 11:59 11:59 11:59 11:59 Intake Total 4177 3656 Output Total 3100 3650 Balance 1077 6 Weight 66.9 kg Lab Results: Lab Results-Last 24 Hours 09/04/19 09/05/19 09/05/19 Range/Units 11:45 05:09 05:09 WBC 8.4 (4.0-10.5) K/mm3 RBC 3.61 L (4.1-5.4) M/mm3 Hgb 11.1 L (12.0-16.0) gm/dl Hct 35.1 (35-47) % MCV 97.2 (78-100) fl MCH 30.7 (26-32) pg MCHC 31.6 L (32-36) g/dl RDW 16.1 H (11.5-14.0) % Plt Count 296 (150-450) K/mm3 MPV 9.5 (7.5-11.0) fl Sodium 134 L 136 L (137-145) mmol/L Potassium 5.1 D 4.5 (3.5-5.1) mmol/L Chloride 101 102 (98-107) mmol/L Carbon Dioxide 25 25 (22-30) mmol/L Anion Gap 13.5 13.6 (5-15) MEQ/L BUN 13 9 (7-17) mg/dL Creatinine 0.87 0.89 (0.52-1.04) mg/dL Estimated GFR > 60.0 > 60.0 ML/MIN Glucose 82 86 (74-106) mg/dL Calcium 8.6 8.5 (8.4-10.2) mg/dL Magnesium 1.7 1.5 L (1.6-2.3) mg/dL Total Bilirubin 0.50 0.40 (0.2-1.3) mg/dL AST 34 49 H (14-36) U/L ALT 25 36 H (0-35) U/L Alkaline Phosphatase 94 103 (38-126) U/L Serum Total Protein 6.9 7.0 (6.3-8.2) g/dL Albumin 3.9 4.0 (3.5-5.0) g/dL Amylase 99 95 (30-110) U/L Lipase 207 227 (23-300) U/L Assessment/Plan (1) Pancreatitis Current Visit: No Status: Chronic Qualifiers: Chronicity: acute Pancreatitis type: unspecified pancreatitis type Acute pancreatitis complication: no infection or necrosis Qualified Code(s): K85.90 - Acute pancreatitis without necrosis or infection, unspecified Assessment & Plan: the lipase and amylase have been normalized since yesterday, but she is still having nausea. She will try soups later today if her nausea is improved. Plan is to d/c pt tomorrow regardless since she has a procedure scheduled in [place] on Friday. Will check KUB now to check for ileus. Code(s): K85.90 - ACUTE PANCREATITIS WITHOUT NECROSIS OR INFECTION, UNSP (2) Chronic kidney disease (CKD) stage G3a/A1, moderately decreased glomerular filtration rate (GFR) between 45-59 mL/min/1.73 square meter and albuminuria creatinine ratio less than 30 mg/g Current Visit: No Status: Chronic Code(s): N18.3 - CHRONIC KIDNEY DISEASE, STAGE 3 (MODERATE) (3) Short bowel syndrome Current Visit: No Status: Chronic Assessment & Plan: Mg low this mornin g- will replete with 2g IV, once now and once late this afternoon. Code(s): K91.2 - POSTSURGICAL MALABSORPTION, NOT ELSEWHERE CLASSIFIED (4) Anemia Current Visit: No Status: Chronic Qualifiers: Anemia type: unspecified type Qualified Code(s): D64.9 - Anemia, unspecified Code(s): D64.9 - ANEMIA, UNSPECIFIED
[2019-09-05] MEDS: ENOXAPARIN SODIUM SQ SCH (12:25)
[2019-09-05] MEDS: LYRICA 100MG PO SCH ×2 (12:25→22:09)
[2019-09-05] MEDS: BUSPAR 5 MG PO SCH ×3 (12:25→22:09)
[2019-09-05] MEDS: Protonix 40MG Tablet PO SCH (12:36)
[2019-09-05] MEDS ORDERED: Magnesium Sulfate 1 GM/2 ML VIAL IV ONE ×2 (12:40→18:30)
[2019-09-05] MEDS: MAGNESIUM SULFATE IV SCH ×2 (13:04→18:30)
[2019-09-05] MEDS: SODIUM CHLORIDE 0.9% IV SCH ×2 (13:04→18:30)
--- NOTE | 2019-09-05 17:59 | XRAY ---
Indication: Abdomen pain. Decreased bowel sounds. Comparison: June 21, 2019. KUB again demonstrates nonspecific nonobstructed bowel gas pattern with right lower quadrant colostomy, cholecystectomy clips, and suprapubic catheter. No pathologic visceral calcifications or free air. Solid organs and osseous structures are unremarkable. Impression: Again negative KUB with postsurgical changes. Comment: Preliminary interpretation was made by [facility]. No discrepancy.
[2019-09-05] MEDS ORDERED: PATIENT OWN MEDICATION PO SCH (22:00)
[2019-09-05] MEDS: ZOLOFT 50 MG TABLET PO SCH (22:11)
[2019-09-05] MEDS: NON-FORMULARY ITEM (Melatonin [Melatonin] 10 MG) PO SCH (22:11)
[2019-09-06] MEDS ORDERED: Zofran 4 MG/2 ML VIAL IV PRN (00:47)
[2019-09-06] MEDS: Phenergan 25 MG INJ IV PRN ×2 (02:07→10:26)
[2019-09-06 05:08] LABS: Hemoglobin 9.5 gm/dl (12.0-16.0); Mean Corpuscular Hgb Concent. 31.7 g/dl (32-36); Mean Platelet Volume 9.3 fl (7.5-11.0); Platelet Count 273 K/mm3 (150-450); Red Blood Count 3.06 M/mm3 (4.1-5.4); Red Cell Distribution Width 15.9 % (11.5-14.0); White Blood Count 5.6 K/mm3 (4.0-10.5)
[2019-09-06 05:16] LABS: ALBUMIN 3.5 g/dL (3.5-5.0); ALKALINE PHOSPHATASE 98 U/L (38-126); ANION GAP 10.9 MEQ/L (5-15); BLOOD UREA NITROGEN 3 mg/dL (7-17); CHLORIDE 101 mmol/L (98-107); Calcium 7.9 mg/dL (8.4-10.2); Carbon Dioxide 26 mmol/L (22-30); Creatinine 1 0.75 mg/dL (0.52-1.04); Glucose 90 mg/dL (74-106); LIPASE 118 U/L (23-300); MAGNESIUM 1.9 mg/dL (1.6-2.3); SGOT/AST 41 U/L (14-36); SGPT/ALT 32 U/L (0-35); SODIUM 134 mmol/L (137-145); Total Protein 6.4 g/dL (6.3-8.2)
[2019-09-06] MEDS: Sodium Chloride 0.9% 1000 ML 1,000 ML IV SCH (06:51)
[2019-09-06] MEDS: Morphine PCA 1 MG/ML 30 ML IV PRN ×2 (06:58→11:57)
[2019-09-06] MEDS: PATIENT OWN MEDICATION PO SCH ×5 (07:48→12:38)
--- NOTE | 2019-09-06 09:16 | PCM.DS ---
Discharge Summary Date of Admission: 09/03/19 12:15 Admitting Physician: JOSE ZAMORANO Primary Care Provider: JOSE ZAMORANO Allergies Allergies oxybutynin Allergy (Severe, Verified 07/21/19 04:30) pharyngeal swelling oxycodone [From Percocet] Allergy (Intermediate, Verified 07/21/19 04:30) Hives Pt. stated " Immediatly after taking it I felt like I was coming out of my skin." ampicillin Allergy (Mild, Verified 07/21/19 04:30) hives erythromycin base [Erythromycin Base] Allergy (Mild, Verified 07/21/19 04:30) Hives duloxetine HCl [From Cymbalta] Allergy (Unknown, Verified 07/21/19 04:30) Tightness of Throat Hospital Summary - Hospital Course Hospital Course: Pt is 54 yo pt of [facility] from [facility] with Crohn's dz s/p colostomy (with ileostomy), neurogenic bladder (with suprapubic catheter), chronic UTIs, chronic renal failure, short gut syndrome, chronic hypomagnesemia and hypokalemia (on IV fluids 2-3x weekly per nephrology), hx PUD and chronic pancreatitis who was admitted last week with abd pain and elevated lipase (pancreatitis flare). She has been on CLD and IVF with morphine [employer]PH[employer] with fairly good pain control for her. She has been having some trouble swallowing her foods, and yesterday started having trouble with pills as well (have to be in applesauce now). Since she is seeing GI and having a scope in the morning, will defer any dx/tx to them, thank you. Pt tried advancing her diet to include soups yesterday but she became nauseated with more abd pain so she is back to CLD. Will discharge to home this afternoon so that she can make her appt tomorrow with GI in [place]. Plan to f/u with me in 1 week. - Vitals & Intake/Output Vital Signs: Vital Signs Temperature 98 F 09/06/19 07:09 Pulse Rate 88 09/06/19 07:09 Respiratory Rate 22 09/06/19 08:00 Blood Pressure 111/60 09/06/19 07:09 O2 Sat by Pulse Oximetry 97 09/06/19 07:09 Intake & Output: Intake & Output 09/03/19 09/04/19 09/05/1909/06/20 11:59 11:59 11:59 11:59 Intake Total 8779 0228 3722 Output Total 3106 3650 8285 Balance 1077 6 1154 Weight 66.9 kg - Lab Result Diagrams: 09/06/19 04:30 09/06/19 04:30 Lab Results-Last 24 Hrs: Lab Results-Last 24 Hours 09/06/19 09/06/19 09/06/19 Range/Units 04:30 04:30 06:00 WBC 5.6 (4.0-10.5) K/mm3 RBC 3.06 L (4.1-5.4) M/mm3 Hgb 9.5 L (12.0-16.0) gm/dl Hct 30.0 L (35-47) % MCV 98.0 (78-100) fl MCH 31.0 (26-32) pg MCHC 31.7 L (32-36) g/dl RDW 15.9 H (11.5-14.0) % Plt Count 273 (150-450) K/mm3 MPV 9.3 (7.5-11.0) fl Sodium 134 L (137-145) mmol/L Potassium 4.0 (3.5-5.1) mmol/L Chloride 101 (98-107) mmol/L Carbon Dioxide 26 (22-30) mmol/L Anion Gap 10.9 (5-15) MEQ/L BUN 3 L (7-17) mg/dL Creatinine 0.75 (0.52-1.04) mg/dL Estimated GFR > 60.0 ML/MIN Glucose 90 (74-106) mg/dL Calcium 7.9 L (8.4-10.2) mg/dL Magnesium 1.9 (1.6-2.3) mg/dL Total Bilirubin 0.40 (0.2-1.3) mg/dL AST 41 H (14-36) U/L ALT 32 (0-35) U/L Alkaline Phosphatase 98 (38-126) U/L Serum Total Protein 6.4 (6.3-8.2) g/dL Albumin 3.5 (3.5-5.0) g/dL Amylase 72 (30-110) U/L Lipase 118 (23-300) U/L - Radiology Exams Ordered Rad Exams-Entire Visit: Radiology Procedures Category Date Time Status KUB Routine Exams 09/05/19 12:59 Completed - Procedures and Test Procedures and Tests throughout Hospitalization: Therapy Orders & Screens 09/03/19 19:26 Oxygen Nasal Cannula 2 lpm Comment: Diagnosis: Pancreatitis,Failed Outpatient Discharge Exam General Appearance: mild distress, alert Neurologic Exam: oriented x 3, cooperative Eye Exam: eyes nml inspection Ears, Nose, Throat Exam: moist mucous membranes Neck Exam: normal inspection Respiratory Exam: normal breath sounds, lungs clear, No crackles/rales, No rhonchi, No wheezing Cardiovascular Exam: regular rate/rhythm, normal heart sounds, No murmur Gastrointestinal/Abdomen Exam: soft, normal bowel sounds, tenderness (LLQ, LUQ, epigastrum), guarding, No distention, No rebound Back Exam: normal inspection, No rash Extremity Exam: No pedal edema, No swelling Skin Exam: normal color, warm, dry, No rash Final Diagnosis/Problem List - Final Discharge Diagnosis/Problem (1) Pancreatitis Current Visit: No Status: Chronic Assessment & Plan: the lipase has normalized, down to 118 today. Code(s): K85.90 - ACUTE PANCREATITIS WITHOUT NECROSIS OR INFECTION, UNSP (2) Chronic kidney disease (CKD) stage G3a/A1, moderately decreased glomerular filtration rate (GFR) between 45-59 mL/min/1.73 square meter and albuminuria creatinine ratio less than 30 mg/g Current Visit: No Status: Chronic Assessment & Plan: stable Code(s): N18.3 - CHRONIC KIDNEY DISEASE, STAGE 3 (MODERATE) (3) Short bowel syndrome Current Visit: No Status: Chronic Assessment & Plan: K+ and Mg nl today, Mg is 1.9, K+ 4.0. Code(s): K91.2 - POSTSURGICAL MALABSORPTION, NOT ELSEWHERE CLASSIFIED (4) Anemia Current Visit: No Status: Chronic Assessment & Plan: Hgb down to 9.5, I think this is largely dilutional superimposed on anemia of renal insufficiency. Code(s): D64.9 - ANEMIA, UNSPECIFIED - Discharge Disposition: Home, Self-Care Condition: Stable Prescriptions: New Diphenhydramine HCl 25 mg [Benadryl 25 mg Capsule] 25 mg PO Q6H PRN PRN #30 capsule PRN Reason: Itching ondansetron HCL [Ondansetron HCl] 4 mg PO Q4H PRN PRN #30 tablet PRN Reason: Nausea Continue Pregabalin [Lyrica] 100 mg PO BID Heparin Flush 500 units/5 ml [Heparin Lock Flush 100 Units/ml 5ml Syringe ] 500 units PORT FLUSH PRN PRN disp.syrin PRN Reason: Iv Port Flush Buspirone HCl 5 mg [Buspar 5 mg] 15 mg PO TID Furosemide 40 mg [Lasix 40 MG] 40 mg PO DAILY PRN PRN PRN Reason: fluid retention Esomeprazole Magnesium [Nexium] 40 mg PO DAILY Spironolactone 25 mg [Aldactone 25 MG] 25 mg PO DAILY PRN PRN PRN Reason: water retention Sertraline HCl [Zoloft] 200 mg PO HS Brexpiprazole [Rexulti] 2 mg PO HS Solifenacin Succinate [Vesicare] 10 mg PO DAILY Mirabegron [Myrbetriq] 50 mg PO DAILY Melatonin 10 mg PO HS Vortioxetine Hydrobromide [Trintellix] 20 mg PO HS Albuterol Sulfate [Ventolin Hfa] 90 mcg IH Q4HPRN PRN PRN Reason: sob Lipase/Protease/Amylase [Concepcion Dr 24,000 Units Capsule] 2 tab PO AC Hydrocodone/APAP 10/325 mg [[place] 10/325 MG Tablet] 1 tab PO QID PRN PRN tablet PRN Reason: Pain Morphine Sulfate [Morphine Sulfate ER] 30 mg PO BID Varenicline Tartrate [Chantix] 1 mg .ROUTE UD Discontinued Promethazine HCl 25 mg [Phenergan 25 mg] 25 mg PO QIDPRN PRN #60 PRN Reason: Nausea Follow up with: JOSE ZAMORANO [Primary Care Provider] - 1 Week
[2019-09-06] MEDS: BUSPAR 5 MG PO SCH (09:31)
[2019-09-06] MEDS: LYRICA 100MG PO SCH (09:31)
[2019-09-06] MEDS: Protonix 40MG Tablet PO SCH (09:31)
[2019-09-06] MEDS: ENOXAPARIN SODIUM SQ SCH (09:33)
[2019-09-06] MEDS: PATIENT OWN MEDICATION PO PRN (12:06)
[2019-09-06 12:22] VITALS: BP 109/60; PULSE 78; O2SAT 99
[2019-09-06] MEDS: BENADRYL 25 MG CAPSULE PO PRN (14:12)
== END 2019-09-06 14:40 | disposition home or self-care (01) | DRG 439 ==
LOC: MED SURG 12:15 → OBSVTOIN 12:15
PROVIDERS: ADMIT Family Medicine; ATTEND Family Medicine
DX: K85.90 Acute pancreatitis without necrosis or infection, unspecified (principal); K91.2 Postsurgical malabsorption, not elsewhere classified; N18.3 Chronic kidney disease, stage 3 (moderate); D64.9 Anemia, unspecified; Z93.2 Ileostomy status; N31.9 Neuromuscular dysfunction of bladder, unspecified; E83.42 Hypomagnesemia; E87.6 Hypokalemia; Z79.899 Other long term (current) drug therapy
CPT/HCPCS: 36415; 74018; 80053; 82150; 83690; 83735; 85025; 85027; 94762; J1650; J2270; J2405; J2550; J3475; A9270-GY

== ENCOUNTER 2019-09-20 08:40 | Inpatient (IN) | payer MEDICARE ==
[2019-09-20 10:40] LABS: Absolute Neutrophil Ct (ANC) 7.82 (1.4-6.9); Basophil (Absolute #) 0.12 (0-0.4); Eosinophil % 3.5 % (0.00-5.0); Eosinophil (Absolute #) 0.43 (0-0.5); Hematocrit 41.6 % (35-47); Hemoglobin 14.2 gm/dl (12.0-16.0); Lymphocytes % 25.7 % (24.0-44.0); Mean Corpuscular Hemoglobin 31.4 pg (26-32); Mean Corpuscular Hgb Concent. 34.1 g/dl (32-36); Monocyte (Absolute #) 0.86 (0.0-1.3); Monocytes % 6.9 % (0.0-12.0); Neutrophil % 62.9 % (36.0-66.0); Platelet Count 388 K/mm3 (150-450); Red Blood Count 4.52 M/mm3 (4.1-5.4); Red Cell Distribution Width 15.2 % (11.5-14.0); White Blood Count 12.4 K/mm3 (4.0-10.5)
[2019-09-20] MEDS ORDERED: Lactated Ringers 500 ML IV ONE (10:45)
[2019-09-20] MEDS ORDERED: MORPHINE SULFATE 10 MG/ML IV ONE (10:45)
[2019-09-20 10:50] LABS: ALBUMIN 4.9 g/dL (3.5-5.0); ANION GAP 17.1 MEQ/L (5-15); BILIRUBIN,TOTAL 0.5 mg/dL (0.2-1.3); Calcium 9.7 mg/dL (8.4-10.2); Creatinine 1 1.13 mg/dL (0.52-1.04); Potassium 4.6 mmol/L (3.5-5.1); Total Protein 8.7 g/dL (6.3-8.2)
--- NOTE | 2019-09-20 11:18 | XRAY ---
Indication: Acute pancreatitis. Comparison: September 05, 2019. KUB unchanged again nonacute and nonobstructed with right lower quadrant ostomy, cholecystomy clips, and suprapubic catheter. No large free air. Solid organs and osseous structures remain unremarkable.
[2019-09-20] MEDS: Morphine PCA 1 MG/ML 30 ML IV PRN (11:41)
[2019-09-20] MEDS: Lactated Ringers 1,000 ML IV SCH ×2 (11:43→21:25)
[2019-09-20] MEDS: Phenergan 25 MG INJ IV PRN ×2 (11:44→20:35)
[2019-09-20] MEDS ORDERED: ONDANSETRON HCL 4 MG PO PRN (13:48)
[2019-09-20] MEDS ORDERED: Ventolin Hfa MDI IH PRN (13:48)
[2019-09-20] MEDS ORDERED: VENTOLIN COMMON CANISTER IH PRN (13:57)
[2019-09-20] MEDS: BUSPAR 5 MG PO SCH ×2 (15:09→21:22)
[2019-09-20] MEDS: PANCRELIPASE DR 5,000 UNIT CAP PO SCH (15:10)
[2019-09-20 16:21] LABS: Appearance CLEAR (CLEAR); Bacteria FEW /HPF (NEGATIVE); Bilirubin NEGATIVE (NEGATIVE); Blood MODERATE Ery/ul (0-5); Glucose NEGATIVE (NEGATIVE); Ketones NEGATIVE (NEGATIVE); Leukocyte Esterase SMALL (NEGATIVE); Mucus SLIGHT /HPF (NEGATIVE); Nitrite NEGATIVE (NEGATIVE); Protein,Urine Dip NEGATIVE (Negative); Specific Gravity 1.014 (1.005-1.025); Urobilinogen NEGATIVE mg/dL (0-1)
[2019-09-20] MEDS ORDERED: PROTEASE PO SCH (16:30)
[2019-09-20] MEDS ORDERED: LIPASE PO SCH (16:30)
[2019-09-20] MEDS ORDERED: AMYLASE PO SCH (16:30)
[2019-09-20] MEDS: LYRICA 100MG PO SCH (21:22)
[2019-09-20] MEDS: ZOLOFT 50 MG TABLET PO SCH (21:23)
[2019-09-20] MEDS ORDERED: LYRICA 75 MG CAP PO SCH (22:00)
[2019-09-20] MEDS ORDERED: NON-FORMULARY ITEM (Sertraline Hcl [Zoloft] 200 MG) PO SCH (22:00)
[2019-09-21] MEDS: Morphine PCA 1 MG/ML 30 ML IV PRN ×3 (04:46→22:21)
[2019-09-21] MEDS: Phenergan 25 MG INJ IV PRN ×3 (04:46→18:23)
[2019-09-21] MEDS: Lactated Ringers 1,000 ML IV SCH (07:40)
[2019-09-21] MEDS: PANCRELIPASE DR 5,000 UNIT CAP PO SCH ×3 (07:41→16:56)
--- NOTE | 2019-09-21 08:45 | PCM.HP ---
History of Present Illness - Chief Complaint Chief Complaint: Pancreatitis History of Present Illness: is a 54 year old female pt of mine from [facility] with chronic pancreatitis , Crohn's dz with hx colon resection and ileostomy, neurogenic bladder with suprapubic catheter, chronic renal insufficiency (sees Dr. Orourke and gets IV fluids three times/wk), short gut syndrome (gets IV K+ and Mg++) who was directly admitted from home yesterday with acute pancreatitis. Her lipase had been elevated to >600; yesterday was 754. She had been feeling good for about 10d after injection with her GI specialist in [place]; four days ago started feeling nauseated, than epigastric/LUQ pain began that was 9/10 at home. Here on morphine [employer] it's 5/10. This morning's labs are pending. - Review of Systems Abdominal/Gastrointestinal: Abdominal Pain, Nausea Psychological: Depression, No Suicidal Ideations All Other Systems: Reviewed and Negative Medications & Allergies Home Medications: Home Medication List Pregabalin [Lyrica] 100 mg PO BID 12/24/16 [History Confirmed 09/20/19] Heparin Flush 500 units/5 ml [Heparin Lock Flush 100 Units/ml 5ml Syringe] 500 units PORT FLUSH PRN PRN disp.syrin 08/10/17 [Rx Confirmed 09/20/19] Buspirone HCl 5 mg [Buspar 5 mg] 15 mg PO TID 01/09/18 [History Confirmed 09/20/19] Furosemide 40 mg [Lasix 40 MG] 40 mg PO DAILY PRN PRN 04/06/18 [History Confirmed 09/20/19] Esomeprazole Magnesium [Nexium] 40 mg PO DAILY 09/07/18 [History Confirmed 09/20] Sertraline HCl [Zoloft] 200 mg PO HS 11/06/18 [History Confirmed 09/20/19] Solifenacin Succinate [Vesicare] 10 mg PO DAILY 01/05/19 [History Confirmed ] Mirabegron [Myrbetriq] 50 mg PO DAILY 02/26/19 [History Confirmed 09/20/19] Albuterol Sulfate [Ventolin Hfa] 90 mcg IH Q4HPRN PRN 04/12/19 [History Confirmed 09/20/19] Lipase/Protease/Amylase [Concepcion [place] 24,000 Units Capsule] 2 tab PO AC 06/21/19 [ History Confirmed 09/20/19] Hydrocodone/APAP 10/325 mg [[place] 10/325 MG Tablet] 1 tab PO QID PRN PRN tablet 07/25/19 [Rx Confirmed 09/20/19] Diphenhydramine HCl 25 mg [Benadryl 25 mg Capsule] 25 mg PO Q6H PRN PRN # 30 capsule 09/06/19 [Rx Confirmed 09/20/19] ondansetron HCL [Ondansetron HCl] 4 mg PO Q4H PRN PRN #30 tablet 09/06/19 [Rx Confirmed 09/20/19] Promethazine HCl 25 mg [Phenergan 25 mg] 1 tab PO Q4H PRN PRN MDD 150 mg 09/20/19 [History Confirmed 09/20/19] Allergies/Adverse Reactions: Allergies Allergy/AdvReac Type Severity Reaction Status Date / Time oxybutynin Allergy Severe Verified 09/20/19 11:10 oxycodone [From Percocet] Allergy Intermediate Hives Verified 09/20/19 11:10 ampicillin Allergy Mild Verified 09/20/19 11:10 erythromycin base Allergy Mild Verified 09/20/19 11:10 [Erythromycin Base] duloxetine HCl Allergy Unknown Tightness Verified 09/20/19 11:10 [From Cymbalta] of Throat - Past Medical History Past Medical History: Yes Neurological History: Peripheral Neuropathy ENT History: No Pertinent History Cardiac History: No Pertinent History Respiratory History: No Pertinent History Endocrine Medical History: Adrenal Insufficiency, Other Musculoskelatal History: Osteoarthritis GI Medical History: Crohns Disease, Pancreatitis, Other History: Renal Disease, Other Pyscho-Social History: Anxiety, Depression Reproductive Disorders: Other Comment: Pt had surgery for ahdesions in the gut and had complications. She has a colostomy and superpubic cather. Pt gets infusions with potassium and magnesium, chronic pancreatitis. - Female History Are you now?: No - Past Surgical History Past Surgical History: Yes (ileostomy, suprapubic catheter) Neuro Surgical History: No Pertinent History Cardiac History: No Pertinent History Respiratory Surgery: No Pertinent History GI Surgical History: Bowel Surgery, Cholecystectomy Genitourinary Surgical Hx: Other Musculskeletal Surgical Hx: No Pertinent History Female Surgical History: Hysterectomy Other Surgical History: has 120 cm of small bowel, urostomy following compications after surgery to remove adhesions. PROCEDURE 09/07/19 TO DEADEN NERVES OF PANCREAS - Social History Smoking Status: Current every day smoker How long have you smoked: 20 years Exposure to second hand smoke: Yes Alcohol: None Drug Use: none - Physical Exam Vital Signs: Vital Signs - 24 hr Temp Pulse Resp BP Pulse Ox 09/21/19 07:41 100 09/21/19 07:20 98.3 F 65 18 122/65 95 09/21/19 06:52 95 09/21/19 04:46 95 09/21/19 04:00 97.8 F 79 16 111/61 97 09/21/19 00:00 97.9 F 65 18 114/65 95 09/20/19 23:41 95 09/20/19 20:00 16 99 09/20/19 19:44 97.8 F 84 16 115/69 99 09/20/19 16:00 97.9 F 81 16 115/75 98 09/20/19 15:46 16 09/20/19 12:43 97 09/20/19 12:37 98.3 F 101 H 16 139/95 96 09/20/19 12:00 16 09/20/19 11:41 96 09/20/19 11:39 98.3 F 101 H 16 139/95 96 09/20/19 10:17 98.3 F 101 H 16 139/95 96 General Appearance: no apparent distress, alert Neurologic Exam: oriented x 3, cooperative Eye Exam: eyes nml inspection Ears, Nose, Throat Exam: moist mucous membranes Neck Exam: normal inspection, non-tender, No lymphadenopathy Respiratory Exam: normal breath sounds, lungs clear, No crackles/rales, No rhonchi, No wheezing Cardiovascular Exam: regular rate/rhythm, normal heart sounds, No murmur Gastrointestinal/Abdomen Exam: soft, normal bowel sounds, tenderness ( epigastrum and LUQ), guarding, No distention, No mass, No rebound Back Exam: normal inspection, No CVA tenderness, No rash Extremity Exam: normal inspection, No swelling, No tenderness Skin Exam: normal color, warm, dry, No rash Results - Labs Lab/Micro Results: Lab Results-Last 24 Hours 09/20/19 09/20/19 09/20/19 Range/Units 09:30 09:30 10:15 WBC 12.4 H (4.0-10.5) K/mm3 RBC 4.52 (4.1-5.4) M/mm3 Hgb 14.2 (12.0-16.0) gm/dl Hct 41.6 (35-47) % MCV 92.0 (78-100) fl MCH 31.4 (26-32) pg MCHC 34.1 (32-36) g/dl RDW 15.2 H (11.5-14.0) % Plt Count 388 (150-450) K/mm3 MPV 9.0 (7.5-11.0) fl Gran % 62.9 (36.0-66.0) % Eos # (Auto) 0.43 (0-0.5) Absolute Lymphs (auto) 3.20 (1.0-4.6) Absolute Monos (auto) 0.86 (0.0-1.3) Lymphocytes % 25.7 (24.0-44.0) % Monocytes % 6.9 (0.0-12.0) % Eosinophils % 3.5 (0.00-5.0) % Basophils % 1.0 (0.0-0.4) % Absolute Granulocytes 7.82 H (1.4-6.9) Basophils # 0.12 (0-0.4) Sodium 136 L (137-145) mmol/L Potassium 4.6 (3.5-5.1) mmol/L Chloride 99 (98-107) mmol/L Carbon Dioxide 25 (22-30) mmol/L Anion Gap 17.1 H (5-15) MEQ/L BUN 24 H (7-17) mg/dL Creatinine 1.13 H (0.52-1.04) mg/dL Estimated GFR 53.3 ML/MIN Glucose 98 (74-106) mg/dL Lactic Acid 2.3 H (0.4-2.0) Calcium 9.7 (8.4-10.2) mg/dL Total Bilirubin 0.50 (0.2-1.3) mg/dL AST 58 H (14-36) U/L ALT 77 H (0-35) U/L Alkaline Phosphatase 152 H (38-126) U/L Serum Total Protein 8.7 H (6.3-8.2) g/dL Albumin 4.9 (3.5-5.0) g/dL Amylase 191 H (30-110) U/L Lipase 754 H (23-300) U/L Urine Color (YELLOW) Urine Appearance (CLEAR) Urine pH (5-6) Ur Specific [place] (1.005-1.025) Urine Protein (Negative) Urine Ketones (NEGATIVE) Urine Blood (0-5) Gregg/ul Urine Nitrite (NEGATIVE) Urine Bilirubin (NEGATIVE) Urine Urobilinogen (0-1) mg/dL Ur Leukocyte Esterase (NEGATIVE) Urine WBC (Auto) (0-5) /HPF Urine RBC (Auto) (0-2) /HPF U Epithel Cells (Auto) (FEW) /HPF Urine Bacteria (Auto) (NEGATIVE) /HPF Urine Mucus (Auto) (NEGATIVE) /HPF Urine Culture Reflexed (NO) Urine Glucose (NEGATIVE) mg/dL 09/20/19 Range/Units 15:50 WBC (4.0-10.5) K/mm3 RBC (4.1-5.4) M/mm3 Hgb (12.0-16.0) gm/dl Hct (35-47) % MCV (78-100) fl MCH (26-32) pg MCHC (32-36) g/dl RDW (11.5-14.0) % Plt Count (150-450) K/mm3 MPV (7.5-11.0) fl Gran % (36.0-66.0) % Eos # (Auto) (0-0.5) Absolute Lymphs (auto) (1.0-4.6) Absolute Monos (auto) (0.0-1.3) Lymphocytes % (24.0-44.0) % Monocytes % (0.0-12.0) % Eosinophils % (0.00-5.0) % Basophils % (0.0-0.4) % Absolute Granulocytes (1.4-6.9) Basophils # (0-0.4) Sodium (137-145) mmol/L Potassium (3.5-5.1) mmol/L Chloride (98-107) mmol/L Carbon Dioxide (22-30) mmol/L Anion Gap (5-15) MEQ/L BUN (7-17) mg/dL Creatinine (0.52-1.04) mg/dL Estimated GFR ML/MIN Glucose (74-106) mg/dL Lactic Acid (0.4-2.0) Calcium (8.4-10.2) mg/dL Total Bilirubin (0.2-1.3) mg/dL AST (14-36) U/L ALT (0-35) U/L Alkaline Phosphatase (38-126) U/L Serum Total Protein (6.3-8.2) g/dL Albumin (3.5-5.0) g/dL Amylase (30-110) U/L Lipase (23-300) U/L Urine Color YELLOW (YELLOW) Urine Appearance CLEAR (CLEAR) Urine pH 6.0 (5-6) Ur Specific [place] 1.014 (1.005-1.025) Urine Protein NEGATIVE (Negative) Urine Ketones NEGATIVE (NEGATIVE) Urine Blood MODERATE (0-5) Gregg/ul Urine Nitrite NEGATIVE (NEGATIVE) Urine Bilirubin NEGATIVE (NEGATIVE) Urine Urobilinogen NEGATIVE (0-1) mg/dL Ur Leukocyte Esterase SMALL (NEGATIVE) Urine WBC (Auto) 16-25 (0-5) /HPF Urine RBC (Auto) 6-10 (0-2) /HPF U Epithel Cells (Auto) NONE (FEW) /HPF Urine Bacteria (Auto) FEW (NEGATIVE) /HPF Urine Mucus (Auto) SLIGHT (NEGATIVE) /HPF Urine Culture Reflexed ORDERED SEPARATELY (NO) Urine Glucose NEGATIVE (NEGATIVE) mg/dL Microbiology 09/20/19 15:50 Urine Culture - Preliminary Urine, Void GRAM NEGATIVE ID AND SENSITIVITY PENDING - Radiology Impressions Radiology Exams & Impressions: Radiology Procedures Category Date Time Status KUB Routine Exams 09/20/19 11:07 Completed Assessment/Plan (1) Pancreatitis Current Visit: No Status: Chronic Qualifiers: Chronicity: acute Pancreatitis type: idiopathic Acute pancreatitis complication: no infection or necrosis Qualified Code(s): K85.00 - Idiopathic acute pancreatitis without necrosis or infection Assessment & Plan: labs pending Code(s): K85.90 - ACUTE PANCREATITIS WITHOUT NECROSIS OR INFECTION, UNSP (2) Chronic kidney disease (CKD) stage G3a/A1, moderately decreased glomerular filtration rate (GFR) between 45-59 mL/min/1.73 square meter and albuminuria creatinine ratio less than 30 mg/g Current Visit: No Status: Chronic Assessment & Plan: eGFR 53.3 yesterday. Code(s): N18.3 - CHRONIC KIDNEY DISEASE, STAGE 3 (MODERATE) (3) Elevated liver enzymes Current Visit: No Status: Chronic Code(s): R74.8 - ABNORMAL LEVELS OF OTHER SERUM ENZYMES (4) Short bowel syndrome Current Visit: No Status: Chronic Code(s): K91.2 - POSTSURGICAL MALABSORPTION, NOT ELSEWHERE CLASSIFIED (5) UTI (urinary tract infection) Current Visit: No Status: Acute Onset Date: ~07/17/18 Qualifiers: Urinary tract infection type: acute cystitis Hematuria presence: without hematuria Qualified Code(s): N30.00 - Acute cystitis without hematuria Assessment & Plan: GNR on micro - started rocephin IV today. Code(s): N39.0 - URINARY TRACT INFECTION, SITE NOT SPECIFIED
[2019-09-21 08:47] LABS: Hemoglobin 11.6 gm/dl (12.0-16.0); Mean Corpuscular Hemoglobin 30.9 pg (26-32); Mean Corpuscular Hgb Concent. 32.2 g/dl (32-36); Mean Platelet Volume 10.1 fl (7.5-11.0); Platelet Count 292 K/mm3 (150-450); Red Blood Count 3.75 M/mm3 (4.1-5.4); Red Cell Distribution Width 15.3 % (11.5-14.0); White Blood Count 7.7 K/mm3 (4.0-10.5)
[2019-09-21] MEDS: BUSPAR 5 MG PO SCH ×3 (08:59→21:13)
[2019-09-21] MEDS: Protonix 40MG Tablet PO SCH (08:59)
[2019-09-21] MEDS: LYRICA 100MG PO SCH ×2 (08:59→21:13)
[2019-09-21] MEDS: PATIENT OWN MEDICATION PO SCH ×2 (08:59→09:00)
[2019-09-21 09:02] LABS: ALBUMIN 3.9 g/dL (3.5-5.0); ALKALINE PHOSPHATASE 108 U/L (38-126); AMYLASE 98 U/L (30-110); ANION GAP 11.3 MEQ/L (5-15); BLOOD UREA NITROGEN 16 mg/dL (7-17); CHLORIDE 105 mmol/L (98-107); Calcium 9.2 mg/dL (8.4-10.2); Carbon Dioxide 24 mmol/L (22-30); Creatinine 1 0.84 mg/dL (0.52-1.04); Glucose 87 mg/dL (74-106); LIPASE 333 U/L (23-300); MAGNESIUM 1.8 mg/dL (1.6-2.3); Potassium 5.2 mmol/L (3.5-5.1); SGOT/AST 34 U/L (14-36); SGPT/ALT 51 U/L (0-35); SODIUM 135 mmol/L (137-145); Total Protein 6.6 g/dL (6.3-8.2)
[2019-09-21] MEDS: ENOXAPARIN SODIUM SQ SCH (09:03)
[2019-09-21] MEDS ORDERED: NON-FORMULARY ITEM (Solifenacin Succinate [Vesicare] 10 MG) PO SCH (10:00)
[2019-09-21] MEDS ORDERED: ROCEPHIN 1 Gm-D5w 50 ml Bag** 1 G/50 ML IVPB IV SCH (10:00)
[2019-09-21] MEDS ORDERED: NON-FORMULARY ITEM (Esomeprazole Magnesium [Nexium] 40 MG) PO SCH (10:00)
[2019-09-21] MEDS: Sodium Chloride 0.9% 1000 ML 1,000 ML IV SCH ×2 (11:41→21:30)
[2019-09-21] MEDS: BENADRYL 25 MG CAPSULE PO PRN ×2 (15:21→21:28)
[2019-09-21] MEDS: ZOLOFT 50 MG TABLET PO SCH (21:13)
[2019-09-21] MEDS: Tums EX 750 MG PO PRN ×2 (21:28→23:36)
[2019-09-21] MEDS: ZOFRAN ODT 4 MG PO PRN (23:36)
[2019-09-22] MEDS: Phenergan 25 MG INJ IV PRN ×4 (02:08→23:29)
[2019-09-22 05:11] LABS: Hematocrit 32.5 % (35-47); Hemoglobin 9.9 gm/dl (12.0-16.0); Mean Cell Volume 99.7 fl (78-100); Mean Corpuscular Hemoglobin 30.4 pg (26-32); Mean Corpuscular Hgb Concent. 30.5 g/dl (32-36); Mean Platelet Volume 9.2 fl (7.5-11.0); Platelet Count 338 K/mm3 (150-450); Red Blood Count 3.26 M/mm3 (4.1-5.4); Red Cell Distribution Width 15.3 % (11.5-14.0); White Blood Count 6.4 K/mm3 (4.0-10.5)
[2019-09-22 05:19] LABS: ALBUMIN 3.4 g/dL (3.5-5.0); ALKALINE PHOSPHATASE 81 U/L (38-126); AMYLASE 94 U/L (30-110); BLOOD UREA NITROGEN 13 mg/dL (7-17); CHLORIDE 108 mmol/L (98-107); Calcium 8.2 mg/dL (8.4-10.2); Carbon Dioxide 26 mmol/L (22-30); Creatinine 1 0.88 mg/dL (0.52-1.04); Glucose 84 mg/dL (74-106); LIPASE 261 U/L (23-300); MAGNESIUM 1.6 mg/dL (1.6-2.3); Potassium 4.6 mmol/L (3.5-5.1); SGOT/AST 28 U/L (14-36); SGPT/ALT 36 U/L (0-35); SODIUM 138 mmol/L (137-145)
[2019-09-22] MEDS: ZOFRAN ODT 4 MG PO PRN (06:26)
[2019-09-22] MEDS: Sodium Chloride 0.9% 1000 ML 1,000 ML IV SCH (07:10)
[2019-09-22] MEDS ORDERED: DIFLUCAN PO ONE (08:00)
[2019-09-22] MEDS: PANCRELIPASE DR 5,000 UNIT CAP PO SCH ×3 (08:05→16:56)
[2019-09-22] MEDS ORDERED: Pepcid 20 MG VIAL IV PRN (08:23)
--- NOTE | 2019-09-22 08:27 | PCM.NOTE ---
Date and Time: 09/22/19823 Subjective Assessment: Pt had a lot of acid reflux last night and is now complaining of chest pressure. Her abd pain is 6/10 currently. - Review of Systems Constitutional: No Fever Abdominal/Gastrointestinal: Abdominal Pain, Nausea Objective Exam General Appearance: mild distress, alert Neurologic Exam: oriented x 3, cooperative Skin Exam: normal color, warm, dry, No rash Neck Exam: normal inspection Respiratory Exam: normal breath sounds, lungs clear, No crackles/rales, No rhonchi, No wheezing Cardiovascular Exam: regular rate/rhythm, normal heart sounds, No murmur Extremity Exam: swelling (mild in hands bilat), No pedal edema Back Exam: normal inspection, No rash OBJECTIVE DATA Vital Signs: Vital Signs - 24 hr Temp Pulse Resp BP Pulse Ox 09/22/19 07:21 97 09/22/19 06:21 95 09/22/19 04:00 98.0 F 71 16 110/55 95 09/22/19 02:21 95 09/21/19 23:47 95 09/21/19 23:37 98.2 F 74 18 118/62 95 09/21/19 23:22 95 09/21/19 22:21 100 09/21/19 20:00 100 09/21/19 19:51 97.9 F 79 16 122/70 95 09/21/19 19:22 100 09/21/19 19:15 95 09/21/19 18:34 96 09/21/19 16:46 97 09/21/19 15:57 97.9 F 66 18 137/72 98 09/21/19 15:22 98 09/21/19 12:46 96 09/21/19 11:27 98.2 F 84 18 111/61 96 09/21/19 08:46 98 Pain Assessment - Last Documented Pain Intensity 7 Pain Scale Used 0-10 Pain Scale Intake and Output: Intake & Output 09/19/19 09/20/19 09/21/19 09/22/19 11:59 11:59 11:59 11:59 Intake Total 4579 4851 Output Total 8780 3325 Balance 1979 1026 Weight 64.5 kg 64.5 kg Lab Results: Lab Results-Last 24 Hours 09/21/19 09/21/19 09/22/19 Range/Units 08:20 08:20 04:45 WBC 7.7 6.4 (4.0-10.5) K/mm3 RBC 3.75 L 3.26 L (4.1-5.4) M/mm3 Hgb 11.6 L 9.9 L (12.0-16.0) gm/dl Hct 36.0 32.5 L (35-47) % MCV 96.0 99.7 (78-100) fl MCH 30.9 30.4 (26-32) pg MCHC 32.2 30.5 L (32-36) g/dl RDW 15.3 H 15.3 H (11.5-14.0) % Plt Count 292 338 (150-450) K/mm3 MPV 10.1 9.2 (7.5-11.0) fl Sodium 135 L (137-145) mmol/L Potassium 5.2 H (3.5-5.1) mmol/L Chloride 105 (98-107) mmol/L Carbon Dioxide 24 (22-30) mmol/L Anion Gap 11.3 (5-15) MEQ/L BUN 16 (7-17) mg/dL Creatinine 0.84 (0.52-1.04) mg/dL Estimated GFR > 60.0 ML/MIN Glucose 87 (74-106) mg/dL Calcium 9.2 (8.4-10.2) mg/dL Magnesium 1.8 (1.6-2.3) mg/dL Total Bilirubin 0.50 (0.2-1.3) mg/dL AST 34 (14-36) U/L ALT 51 H (0-35) U/L Alkaline Phosphatase 108 (38-126) U/L Serum Total Protein 6.6 (6.3-8.2) g/dL Albumin 3.9 (3.5-5.0) g/dL Amylase 98 (30-110) U/L Lipase 333 H (23-300) U/L 09/22/19 Range/Units 04:45 WBC (4.0-10.5) K/mm3 RBC (4.1-5.4) M/mm3 Hgb (12.0-16.0) gm/dl Hct (35-47) % MCV (78-100) fl MCH (26-32) pg MCHC (32-36) g/dl RDW (11.5-14.0) % Plt Count (150-450) K/mm3 MPV (7.5-11.0) fl Sodium 138 (137-145) mmol/L Potassium 4.6 (3.5-5.1) mmol/L Chloride 108 H (98-107) mmol/L Carbon Dioxide 26 (22-30) mmol/L Anion Gap 8.0 (5-15) MEQ/L BUN 13 (7-17) mg/dL Creatinine 0.88 (0.52-1.04) mg/dL Estimated GFR > 60.0 ML/MIN Glucose 84 (74-106) mg/dL Calcium 8.2 L (8.4-10.2) mg/dL Magnesium 1.6 (1.6-2.3) mg/dL Total Bilirubin 0.20 (0.2-1.3) mg/dL AST 28 (14-36) U/L ALT 36 H (0-35) U/L Alkaline Phosphatase 81 (38-126) U/L Serum Total Protein 6.0 L (6.3-8.2) g/dL Albumin 3.4 L (3.5-5.0) g/dL Amylase 94 (30-110) U/L Lipase 261 (23-300) U/L Radiology Exams: Radiology Procedures Category Date Time Status KUB Routine Exams 09/20/19 11:07 Completed Assessment/Plan (1) Pancreatitis Current Visit: No Status: Chronic Qualifiers: Chronicity: acute Pancreatitis type: idiopathic Acute pancreatitis complication: no infection or necrosis Qualified Code(s): K85.00 - Idiopathic acute pancreatitis without necrosis or infection Assessment & Plan: Her lipase is wnl this morning. Will try advancing diet to soups. Having significant dyspepsia; she does have some hx of peptic ulcer disease. Added H2 vira to her IV protonix. Code(s): K85.90 - ACUTE PANCREATITIS WITHOUT NECROSIS OR INFECTION, UNSP (2) Chronic kidney disease (CKD) stage G3a/A1, moderately decreased glomerular filtration rate (GFR) between 45-59 mL/min/1.73 square meter and albuminuria creatinine ratio less than 30 mg/g Current Visit: No Status: Chronic Code(s): N18.3 - CHRONIC KIDNEY DISEASE, STAGE 3 (MODERATE) (3) Elevated liver enzymes Current Visit: No Status: Chronic Code(s): R74.8 - ABNORMAL LEVELS OF OTHER SERUM ENZYMES (4) Short bowel syndrome Current Visit: No Status: Chronic Code(s): K91.2 - POSTSURGICAL MALABSORPTION, NOT ELSEWHERE CLASSIFIED (5) UTI (urinary tract infection) Current Visit: No Status: Acute Onset Date: ~07/17/18 Qualifiers: Urinary tract infection type: acute cystitis Hematuria presence: without hematuria Qualified Code(s): N30.00 - Acute cystitis without hematuria Assessment & Plan: E. faecalis on culture - changed IV rocephin to IV levaquin. Telemetry. Also with pt on IV abx she is requesting diflucan - 150mg po x 1. Added lactobacillus TID today. Code(s): N39.0 - URINARY TRACT INFECTION, SITE NOT SPECIFIED
[2019-09-22] MEDS: Levofloxacin 500MG/100ML D5W 500 MG/100 ML BAG IV SCH (09:52)
[2019-09-22] MEDS: PATIENT OWN MEDICATION PO SCH ×2 (09:52→09:53)
[2019-09-22] MEDS: Protonix 40MG Tablet PO SCH (09:53)
[2019-09-22] MEDS: BUSPAR 5 MG PO SCH ×3 (09:53→21:46)
[2019-09-22] MEDS: LYRICA 100MG PO SCH ×2 (09:53→21:47)
[2019-09-22] MEDS: ENOXAPARIN SODIUM SQ SCH (09:54)
[2019-09-22] MEDS: Acidophilus TABLET PO SCH ×3 (09:54→21:47)
[2019-09-22] MEDS: Tums EX 750 MG PO PRN ×2 (10:08→22:02)
[2019-09-22] MEDS: Morphine PCA 1 MG/ML 30 ML IV PRN ×2 (10:54→19:21)
[2019-09-22] MEDS ORDERED: Protonix 40MG Tablet PO ONE (18:30)
[2019-09-22] MEDS: ZOLOFT 50 MG TABLET PO SCH (21:46)
[2019-09-23] MEDS: Sodium Chloride 0.9% 1000 ML 1,000 ML IV SCH (02:21)
[2019-09-23 07:19] VITALS: O2SAT 97
[2019-09-23] MEDS: Morphine PCA 1 MG/ML 30 ML IV PRN (08:02)
[2019-09-23] MEDS: PANCRELIPASE DR 5,000 UNIT CAP PO SCH ×2 (08:02→11:52)
[2019-09-23] MEDS: Phenergan 25 MG INJ IV PRN ×2 (08:36→14:16)
--- NOTE | 2019-09-23 09:03 | PCM.DS ---
Discharge Summary Date of Admission: 09/21/19 08:40 Admitting Physician: JOSE ZAMORANO Primary Care Provider: JOSE ZAMORANO Allergies Allergies oxybutynin Allergy (Severe, Verified 09/20/19 11:10) pharyngeal swelling oxycodone [From Percocet] Allergy (Intermediate, Verified 09/20/19 11:10) Hives Pt. stated " Immediatly after taking it I felt like I was coming out of my skin." ampicillin Allergy (Mild, Verified 09/20/19 11:10) hives erythromycin base [Erythromycin Base] Allergy (Mild, Verified 09/20/19 11:10) Hives duloxetine HCl [From Cymbalta] Allergy (Unknown, Verified 09/20/19 11:10) Tightness of Throat Hospital Summary - Hospital Course Hospital Course: Pt is 54 yo female pt of mine with Crohn's disease, hx colon resection and ileostomy, neurogenic bladder with suprapubic catheter, chronic renal failure on IV fluids, chronic UTIs, and chronic pancreatitis who was admitted directly with c/o increased abd pain, nausea, and elevated lipase. Her lipase had been > 500 in outpatient infusion, then was >600 on admission here. Decreased after admission on IVF down into normal range yesterday but she was still having quite a bit of reflux and nausea yesterday - she did have a neg EKG and troponin after she told me there was also some chest pressure. She is feeling better today, pain is 4-5/10, and she is trying some solid foods today and if tolerates them well would like to discharge to home. Her urine grew Enterobacter, susceptible to levaquin; today is day #2 of her IV levaquin as she was initially treated with rocephin until culture results were back. - Vitals & Intake/Output Vital Signs: Vital Signs Temperature 98.3 F 09/23/19 07:18 Pulse Rate 72 09/23/19 07:18 Respiratory Rate 16 09/23/19 07:18 Blood Pressure 124/72 09/23/19 07:18 O2 Sat by Pulse Oximetry 97 09/23/19 08:02 Intake & Output: Intake & Output 09/20/19 09/21/19 09/22/19 09/23/19 11:59 11:59 11:59 11:59 Intake Total 4579 5091 2760 Output Total 2600 3825 2500 Balance 1978 1266 260 Weight 64.5 kg 64.5 kg - Lab Result Diagrams: 09/22/19 04:45 09/22/19 04:45 Lab Results-Last 24 Hrs: Lab Results-Last 24 Hours 09/22/19 Range/Units 08:38 Troponin I < 0.012 (0.000-0.034) ng/mL Micro Results-Entire Visit: Microbiology 09/20/19 15:50 Urine Culture - Final Urine, Void Enterococcus Faecalis - Procedures and Test Procedures and Tests throughout Hospitalization: Therapy Orders & Screens 09/20/19 13:00 Smoking Cessation Education ONCE Comment: Diagnosis: Pancreatitis Smoking Status: Current every day smoker How long have you smoked: 20 years Have you smoked in the past 12 months: No Approximately how many cigarettes per day: .5ppd Do you dip or chew tobacco: No 09/22/19 08:24 EKG STAT Comment: Diagnosis: Pancreatitis Discharge Exam General Appearance: no apparent distress, alert Neurologic Exam: oriented x 3, cooperative Eye Exam: eyes nml inspection Ears, Nose, Throat Exam: moist mucous membranes Neck Exam: normal inspection Respiratory Exam: normal breath sounds, lungs clear, No crackles/rales, No rhonchi, No wheezing Cardiovascular Exam: regular rate/rhythm, normal heart sounds, No murmur Gastrointestinal/Abdomen Exam: soft, normal bowel sounds, tenderness ( epigastrum and LUQ; decreased from yesterday), No distention, No mass, No guarding, No rebound Extremity Exam: swelling (trace edema LE bilat) Skin Exam: normal color, warm, dry, No rash Final Diagnosis/Problem List - Final Discharge Diagnosis/Problem (1) Pancreatitis Current Visit: No Status: Chronic Assessment & Plan: Improved; labs pending today. Will try to get these results to her GI specialist in [place]. Code(s): K85.90 - ACUTE PANCREATITIS WITHOUT NECROSIS OR INFECTION, UNSP (2) Chronic kidney disease (CKD) stage G3a/A1, moderately decreased glomerular filtration rate (GFR) between 45-59 mL/min/1.73 square meter and albuminuria creatinine ratio less than 30 mg/g Current Visit: No Status: Chronic Code(s): N18.3 - CHRONIC KIDNEY DISEASE, STAGE 3 (MODERATE) (3) Elevated liver enzymes Current Visit: No Status: Chronic Code(s): R74.8 - ABNORMAL LEVELS OF OTHER SERUM ENZYMES (4) Short bowel syndrome Current Visit: No Status: Chronic Code(s): K91.2 - POSTSURGICAL MALABSORPTION, NOT ELSEWHERE CLASSIFIED (5) UTI (urinary tract infection) Current Visit: No Status: Acute Onset Date: ~07/17/18 Assessment & Plan: Home to finish 5d of fluoroquinolone (today is day #2 of levaquin; sending pt home on 3d of ciprofloxacin). Code(s): N39.0 - URINARY TRACT INFECTION, SITE NOT SPECIFIED - Discharge Disposition: Home, Self-Care Condition: Stable Prescriptions: New Lactobacillus Acidophilus [Acidophilus TABLET] 1 tab PO TID tablet Ciprofloxacin [Cipro 500 MG] 500 mg PO BID #6 tablet Continue Pregabalin [Lyrica] 100 mg PO BID Heparin Flush 500 units/5 ml [Heparin Lock Flush 100 Units/ml 5ml Syringe ] 500 units PORT FLUSH PRN PRN disp.syrin PRN Reason: Iv Port Flush Buspirone HCl 5 mg [Buspar 5 mg] 15 mg PO TID Furosemide 40 mg [Lasix 40 MG] 40 mg PO DAILY PRN PRN PRN Reason: fluid retention Esomeprazole Magnesium [Nexium] 40 mg PO DAILY Sertraline HCl [Zoloft] 200 mg PO HS Solifenacin Succinate [Vesicare] 10 mg PO DAILY Mirabegron [Myrbetriq] 50 mg PO DAILY Albuterol Sulfate [Ventolin Hfa] 90 mcg IH Q4HPRN PRN PRN Reason: sob Lipase/Protease/Amylase [Concepcion Dr 24,000 Units Capsule] 2 tab PO AC Hydrocodone/APAP 10/325 mg [Mark 10/325 MG Tablet] 1 tab PO QID PRN PRN tablet PRN Reason: Pain Diphenhydramine HCl 25 mg [Benadryl 25 mg Capsule] 25 mg PO Q6H PRN PRN #30 capsule PRN Reason: Itching ondansetron HCL [Ondansetron HCl] 4 mg PO Q4H PRN PRN #30 tablet PRN Reason: Nausea Promethazine HCl 25 mg [Phenergan 25 mg] 1 tab PO Q4H PRN PRN MDD 150 mg PRN Reason: Nausea/Vomiting Follow up with: JOSE ZAMORANO [Primary Care Provider] - 1 Week
[2019-09-23] MEDS: Levofloxacin 500MG/100ML D5W 500 MG/100 ML BAG IV SCH (09:52)
[2019-09-23] MEDS: PATIENT OWN MEDICATION PO SCH ×2 (09:52)
[2019-09-23] MEDS: Protonix 40MG Tablet PO SCH (09:53)
[2019-09-23] MEDS: Acidophilus TABLET PO SCH (09:53)
[2019-09-23] MEDS: BUSPAR 5 MG PO SCH (09:53)
[2019-09-23] MEDS: LYRICA 100MG PO SCH (09:53)
[2019-09-23] MEDS: ENOXAPARIN SODIUM SQ SCH (09:57)
[2019-09-23 10:07] LABS: Hematocrit 32.4 % (35-47); Mean Cell Volume 98.8 fl (78-100); Mean Corpuscular Hemoglobin 30.5 pg (26-32); Mean Corpuscular Hgb Concent. 30.9 g/dl (32-36); Mean Platelet Volume 9.3 fl (7.5-11.0); Platelet Count 313 K/mm3 (150-450); Red Blood Count 3.28 M/mm3 (4.1-5.4); White Blood Count 6.7 K/mm3 (4.0-10.5)
[2019-09-23 10:13] LABS: ALBUMIN 3.3 g/dL (3.5-5.0); ALKALINE PHOSPHATASE 75 U/L (38-126); ANION GAP 9.2 MEQ/L (5-15); BLOOD UREA NITROGEN 9 mg/dL (7-17); CHLORIDE 111 mmol/L (98-107); Calcium 8.3 mg/dL (8.4-10.2); Carbon Dioxide 23 mmol/L (22-30); Creatinine 1 0.98 mg/dL (0.52-1.04); Glucose 101 mg/dL (74-106); LIPASE 200 U/L (23-300); MAGNESIUM 1.3 mg/dL (1.6-2.3); SGOT/AST 21 U/L (14-36); SGPT/ALT 27 U/L (0-35); SODIUM 139 mmol/L (137-145); Total Protein 6.1 g/dL (6.3-8.2)
[2019-09-23] MEDS: Magnesium 1 Gm / 100 Ml D5W*** 100 ML IV SCH ×2 (12:15→12:41)
[2019-09-23 12:51] VITALS: BP 123/60; PULSE 78
== END 2019-09-23 15:17 | disposition home or self-care (01) | DRG 439 ==
LOC: MED SURG 08:40 → OBSVTOIN 09-21 08:40
PROVIDERS: ADMIT Family Medicine; ATTEND Family Medicine
DX: K85.90 Acute pancreatitis without necrosis or infection, unspecified (principal); K50.90 Crohn's disease, unspecified, without complications; K91.2 Postsurgical malabsorption, not elsewhere classified; N39.0 Urinary tract infection, site not specified; N18.3 Chronic kidney disease, stage 3 (moderate); R11.0 Nausea; R74.8 Abnormal levels of other serum enzymes; Z93.2 Ileostomy status; N31.9 Neuromuscular dysfunction of bladder, unspecified
CPT/HCPCS: 36415; 74018; 80053; 81001; 82150; 83605; 83690; 83735; 84484; 85025; 85027; 87077; 87086; 87186; 93005; 93268; 94762; G0378; J0696; J1650; J1956; J2270; J2550; J3475; Q0162; A9270-GY

== ENCOUNTER 2019-09-30 11:23 | Observation (INO) | payer MEDICARE ==
[2019-09-30] MEDS: Morphine PCA 1 MG/ML 30 ML IV PRN ×2 (11:54→20:40)
[2019-09-30] MEDS: Lactated Ringers 1,000 ML IV SCH ×2 (11:56→19:51)
[2019-09-30] MEDS ORDERED: Lactated Ringers 1,000 ML IV SCH (12:00)
[2019-09-30] MEDS ORDERED: xanAX 0.5 MG PO ONE (12:30)
--- NOTE | 2019-09-30 12:44 | XRAY ---
Exam: Supine film of the abdomen from 09/30/2019. Comparison: Supine film of the abdomen from 09/20/2019. Indication: Chronic pancreatitis. Findings: 2 supine AP images of the abdomen were obtained. The bowel gas pattern appears unremarkable. Specifically, no bowel obstruction is seen. An ostomy is again seen within the right lower quadrant. A suprapubic catheter again is projected over the lower pelvic midline. Surgical clips consistent with prior cholecystectomy are seen within the right upper quadrant. I see no suspicious calcifications overlying the region of the pancreas. No other suspicious abdominal calcifications are seen. The psoas muscle margins appear unremarkable. The visualized lung bases appear clear. No hepatosplenomegaly is seen. The bones appear unremarkable. Impression: 1. Nonspecific bowel gas pattern without evidence of bowel obstruction. This is unchanged from 09/20/2019. 2. No suspicious abdominal calcifications are seen, particularly overlying the pancreas. 3. Other incidental findings, as discussed above, representing no change.
[2019-09-30] MEDS ORDERED: BENADRYL 50 MG/ML IV PRN (12:56)
[2019-09-30] MEDS ORDERED: Zofran 4 MG/2 ML VIAL IV PRN (13:09)
[2019-09-30] MEDS ORDERED: MEDICATION INTERVENTION PO SCH (13:15)
[2019-09-30] MEDS: MYRBETRIQ PO SCH (13:25)
[2019-09-30] MEDS: PROTONIX 40 MG IV IV SCH (13:25)
[2019-09-30] MEDS: LYRICA 100MG PO SCH ×2 (13:25→21:30)
[2019-09-30] MEDS: Acidophilus TABLET PO SCH ×2 (13:26→21:30)
[2019-09-30] MEDS: BUSPAR 5 MG PO SCH ×2 (13:26→21:30)
[2019-09-30] MEDS: Phenergan 25 MG INJ IV PRN (13:35)
[2019-09-30 14:23] LABS: Appearance CLEAR (CLEAR); Bacteria RARE /HPF (NEGATIVE); Bilirubin NEGATIVE (NEGATIVE); Blood MODERATE Ery/ul (0-5); Glucose NEGATIVE (NEGATIVE); Ketones NEGATIVE (NEGATIVE); Leukocyte Esterase TRACE (NEGATIVE); Mucus SLIGHT /HPF (NEGATIVE); Nitrite NEGATIVE (NEGATIVE); Protein,Urine Dip NEGATIVE (Negative); Specific Gravity 1.004 (1.005-1.025); Urobilinogen NEGATIVE mg/dL (0-1)
[2019-09-30] MEDS ORDERED: LIPASE PO SCH (16:30)
[2019-09-30] MEDS ORDERED: PROTEASE PO SCH (16:30)
[2019-09-30] MEDS ORDERED: AMYLASE PO SCH (16:30)
[2019-09-30] MEDS: PANCRELIPASE DR 5,000 UNIT CAP PO SCH (16:48)
[2019-09-30] MEDS ORDERED: ZOLOFT 50 MG TABLET PO SCH (22:00)
[2019-09-30] MEDS ORDERED: NON-FORMULARY ITEM (Sertraline Hcl [Zoloft] 200 MG) PO SCH (22:00)
[2019-10-01] MEDS: Lactated Ringers 1,000 ML IV SCH (02:51)
[2019-10-01] MEDS: Phenergan 25 MG INJ IV PRN (05:22)
[2019-10-01 05:35] LABS: Hematocrit 31.7 % (35-47); Mean Cell Volume 96.6 fl (78-100); Mean Corpuscular Hemoglobin 30.5 pg (26-32); Mean Corpuscular Hgb Concent. 31.5 g/dl (32-36); Platelet Count 271 K/mm3 (150-450); Red Blood Count 3.28 M/mm3 (4.1-5.4); Red Cell Distribution Width 15.6 % (11.5-14.0); White Blood Count 4.7 K/mm3 (4.0-10.5)
[2019-10-01 05:43] LABS: ALBUMIN 3.1 g/dL (3.5-5.0); ALKALINE PHOSPHATASE 78 U/L (38-126); AMYLASE 80 U/L (30-110); ANION GAP 7.3 MEQ/L (5-15); BLOOD UREA NITROGEN 10 mg/dL (7-17); CHLORIDE 107 mmol/L (98-107); Calcium 8.3 mg/dL (8.4-10.2); Carbon Dioxide 27 mmol/L (22-30); Creatinine 1 0.87 mg/dL (0.52-1.04); Glucose 82 mg/dL (74-106); LIPASE 245 U/L (23-300); MAGNESIUM 1.7 mg/dL (1.6-2.3); SGOT/AST 28 U/L (14-36); SGPT/ALT 38 U/L (0-35); SODIUM 138 mmol/L (137-145); Total Protein 5.7 g/dL (6.3-8.2)
[2019-10-01 06:54] VITALS: BP 142/70; PULSE 66
[2019-10-01] MEDS: PANCRELIPASE DR 5,000 UNIT CAP PO SCH (07:44)
[2019-10-01 07:48] VITALS: O2SAT 95
--- NOTE | 2019-10-01 08:20 | PCM.DS ---
Discharge Summary Date of Admission: 09/30/19 11:29 Admitting Physician: JOSE ZAMORANO Primary Care Provider: JOSE ZAMORANO Allergies Allergies oxybutynin Allergy (Severe, Verified 09/20/19 11:10) pharyngeal swelling oxycodone [From Percocet] Allergy (Intermediate, Verified 09/20/19 11:10) Hives Pt. stated " Immediatly after taking it I felt like I was coming out of my skin." ampicillin Allergy (Mild, Verified 09/20/19 11:10) hives erythromycin base [Erythromycin Base] Allergy (Mild, Verified 09/20/19 11:10) Hives duloxetine HCl [From Cymbalta] Allergy (Unknown, Verified 09/20/19 11:10) Tightness of Throat Hospital Summary - Hospital Course Hospital Course: Pt is a 54 yo female pt of mine from [facility] with PMHx Crohn's disease s/p colectomy with ileostomy, neurogenic bladder with suprapubic catheter, chronic renal failure on IV fluids 3x/wk, short gut syndrome with IV electrolyte repletion, chronic UTIs, and chronic pancreatitis who was admitted directly from office yesterday with an acute pancreatitis flare. She had 2 days of increasing lipase, with epigastric/LUQ pain and nausea. She received IV fluids overnight and this morning her lipase and amylase are normal; potassium is normal at 4.0. Mg is 1.7; will replete with 2g Mg prior to discharge as pt will be out of town this weekend. This morning her abd pain is 0 currently; still having some nausea. She would like to be discharged as she is supposed to go to [place] this weekend. - Vitals & Intake/Output Vital Signs: Vital Signs Temperature 98 F 10/01/19 06:53 Pulse Rate 66 10/01/19 06:53 Respiratory Rate 18 10/01/19 06:53 Blood Pressure 142/70 10/01/19 06:53 O2 Sat by Pulse Oximetry 95 10/01/19 07:48 Intake & Output: Intake & Output 09/28/19 09/29/19 09/30/19 10/01/19 11:59 11:59 11:59 11:59 Intake Total 5400 Output Total 1900 Balance 3500 Weight 67.8 kg - Lab Result Diagrams: 10/01/19 05:30 10/01/19 05:30 Lab Results-Last 24 Hrs: Lab Results-Last 24 Hours 09/30/19 09/30/19 10/01/19 Range/Units 12:16 14:16 05:30 WBC 4.7 (4.0-10.5) K/mm3 RBC 3.28 L (4.1-5.4) M/mm3 Hgb 10.0 L (12.0-16.0) gm/dl Hct 31.7 L (35-47) % MCV 96.6 (78-100) fl MCH 30.5 (26-32) pg MCHC 31.5 L (32-36) g/dl RDW 15.6 H (11.5-14.0) % Plt Count 271 (150-450) K/mm3 MPV 9.0 (7.5-11.0) fl Sodium (137-145) mmol/L Potassium (3.5-5.1) mmol/L Chloride (98-107) mmol/L Carbon Dioxide (22-30) mmol/L Anion Gap (5-15) MEQ/L BUN (7-17) mg/dL Creatinine (0.52-1.04) mg/dL Estimated GFR ML/MIN Glucose (74-106) mg/dL Calcium (8.4-10.2) mg/dL Magnesium (1.6-2.3) mg/dL Total Bilirubin (0.2-1.3) mg/dL AST (14-36) U/L ALT (0-35) U/L Alkaline Phosphatase (38-126) U/L Troponin I < 0.012 (0.000-0.034) ng/mL Serum Total Protein (6.3-8.2) g/dL Albumin (3.5-5.0) g/dL Amylase (30-110) U/L Lipase (23-300) U/L Urine Color STRAW (YELLOW) Urine Appearance CLEAR (CLEAR) Urine pH 7.0 (5-6) Ur Specific [place] 1.004 (1.005-1.025) Urine Protein NEGATIVE (Negative) Urine Ketones NEGATIVE (NEGATIVE) Urine Blood MODERATE (0-5) Gregg/ul Urine Nitrite NEGATIVE (NEGATIVE) Urine Bilirubin NEGATIVE (NEGATIVE) Urine Urobilinogen NEGATIVE (0-1) mg/dL Ur Leukocyte Esterase TRACE (NEGATIVE) Urine WBC (Auto) 3-5 (0-5) /HPF Urine RBC (Auto) 3-5 (0-2) /HPF U Epithel Cells (Auto) NONE (FEW) /HPF Urine Bacteria (Auto) RARE (NEGATIVE) /HPF Urine Mucus (Auto) SLIGHT (NEGATIVE) /HPF Urine Culture Reflexed ORDERED SEPARATELY (NO) Urine Glucose NEGATIVE (NEGATIVE) mg/dL 10/01/19 Range/Units 05:30 WBC (4.0-10.5) K/mm3 RBC (4.1-5.4) M/mm3 Hgb (12.0-16.0) gm/dl Hct (35-47) % MCV (78-100) fl MCH (26-32) pg MCHC (32-36) g/dl RDW (11.5-14.0) % Plt Count (150-450) K/mm3 MPV (7.5-11.0) fl Sodium 138 (137-145) mmol/L Potassium 4.0 (3.5-5.1) mmol/L Chloride 107 (98-107) mmol/L Carbon Dioxide 27 (22-30) mmol/L Anion Gap 7.3 (5-15) MEQ/L BUN 10 (7-17) mg/dL Creatinine 0.87 (0.52-1.04) mg/dL Estimated GFR > 60.0 ML/MIN Glucose 82 (74-106) mg/dL Calcium 8.3 L (8.4-10.2) mg/dL Magnesium 1.7 (1.6-2.3) mg/dL Total Bilirubin 0.40 (0.2-1.3) mg/dL AST 28 (14-36) U/L ALT 38 H (0-35) U/L Alkaline Phosphatase 78 (38-126) U/L Troponin I (0.000-0.034) ng/mL Serum Total Protein 5.7 L (6.3-8.2) g/dL Albumin 3.1 L (3.5-5.0) g/dL Amylase 80 (30-110) U/L Lipase 245 (23-300) U/L Urine Color (YELLOW) Urine Appearance (CLEAR) Urine pH (5-6) Ur Specific [place] (1.005-1.025) Urine Protein (Negative) Urine Ketones (NEGATIVE) Urine Blood (0-5) Gregg/ul Urine Nitrite (NEGATIVE) Urine Bilirubin (NEGATIVE) Urine Urobilinogen (0-1) mg/dL Ur Leukocyte Esterase (NEGATIVE) Urine WBC (Auto) (0-5) /HPF Urine RBC (Auto) (0-2) /HPF U Epithel Cells (Auto) (FEW) /HPF Urine Bacteria (Auto) (NEGATIVE) /HPF Urine Mucus (Auto) (NEGATIVE) /HPF Urine Culture Reflexed (NO) Urine Glucose (NEGATIVE) mg/dL Micro Results-Entire Visit: Microbiology 09/30/19 14:16 Urine Culture - Preliminary Urine, Void <10K NORMAL SKIN BEVERLY PROBABLE SKIN CONTAMINANT - Radiology Exams Ordered Rad Exams-Entire Visit: Radiology Procedures Category Date Time Status KUB Routine Exams 09/30/19 12:21 Completed - Procedures and Test Procedures and Tests throughout Hospitalization: Therapy Orders & Screens 09/30/19 11:42 EKG ROUTINE Comment: Diagnosis: CHRONIC PANCREATITIS Discharge Exam General Appearance: no apparent distress, alert Neurologic Exam: oriented x 3, cooperative Eye Exam: eyes nml inspection Ears, Nose, Throat Exam: moist mucous membranes Neck Exam: normal inspection Respiratory Exam: normal breath sounds, lungs clear, No crackles/rales, No rhonchi, No wheezing Cardiovascular Exam: regular rate/rhythm, normal heart sounds, No murmur Gastrointestinal/Abdomen Exam: soft, No normal bowel sounds (hypoactive but present), No tenderness (nttp in mid abdomen; did not palpate epigastrum), No distention, No mass, No guarding, No rebound Extremity Exam: swelling (R hand, generalized), No pedal edema Skin Exam: normal color, warm, dry, No rash Final Diagnosis/Problem List - Final Discharge Diagnosis/Problem (1) Pancreatitis Current Visit: No Status: Chronic Assessment & Plan: Amylase and lipase have normalized this morning after being on IV fluids overnight. She is feeling better; will d/c to home after IV MgSO4. Code(s): K85.90 - ACUTE PANCREATITIS WITHOUT NECROSIS OR INFECTION, UNSP (2) Short bowel syndrome Current Visit: No Status: Chronic Assessment & Plan: Giving Mg IV prior to discharge Code(s): K91.2 - POSTSURGICAL MALABSORPTION, NOT ELSEWHERE CLASSIFIED (3) Chronic kidney disease (CKD) stage G3a/A1, moderately decreased glomerular filtration rate (GFR) between 45-59 mL/min/1.73 square meter and albuminuria creatinine ratio less than 30 mg/g Current Visit: No Status: Chronic Code(s): N18.3 - CHRONIC KIDNEY DISEASE, STAGE 3 (MODERATE) (4) Elevated LFTs Current Visit: No Status: Chronic Code(s): R94.5 - ABNORMAL RESULTS OF LIVER FUNCTION STUDIES (5) Ileostomy in place Current Visit: No Status: Chronic Code(s): Z93.2 - ILEOSTOMY STATUS - Discharge Disposition: Home, Self-Care Condition: Stable Prescriptions: Continue Pregabalin [Lyrica] 100 mg PO BID Heparin Flush 500 units/5 ml [Heparin Lock Flush 100 Units/ml 5ml Syringe ] 500 units PORT FLUSH PRN PRN disp.syrin PRN Reason: Iv Port Flush Buspirone HCl 5 mg [Buspar 5 mg] 15 mg PO TID Furosemide 40 mg [Lasix 40 MG] 40 mg PO DAILY PRN PRN PRN Reason: fluid retention Esomeprazole Magnesium [Nexium] 40 mg PO DAILY Sertraline HCl [Zoloft] 200 mg PO HS Solifenacin Succinate [Vesicare] 10 mg PO DAILY Mirabegron [Myrbetriq] 50 mg PO DAILY Lipase/Protease/Amylase [Creon Dr 24,000 Units Capsule] 2 tab PO AC Hydrocodone/APAP 10/325 mg [[place] 10/325 MG Tablet] 1 tab PO QID PRN PRN tablet PRN Reason: Pain Diphenhydramine HCl 25 mg [Benadryl 25 mg Capsule] 25 mg PO Q6H PRN PRN #30 capsule PRN Reason: Itching ondansetron HCL [Ondansetron HCl] 4 mg PO Q4H PRN PRN #30 tablet PRN Reason: Nausea Promethazine HCl 25 mg [Phenergan 25 mg] 1 tab PO Q4H PRN PRN MDD 150 mg PRN Reason: Nausea/Vomiting Lactobacillus Acidophilus [Acidophilus TABLET] 1 tab PO TID tablet Instructions: Chronic Pancreatitis (DC) Follow up with: JOSE ZAMORANO [Primary Care Provider] - 1 Week
[2019-10-01] MEDS ORDERED: Magnesium Sulfate 1 GM/2 ML VIAL IV ONE (08:30)
[2019-10-01] MEDS: Magnesium 1 Gm / 100 Ml D5W*** 100 ML IV SCH ×2 (08:39→09:26)
[2019-10-01] MEDS: Acidophilus TABLET PO SCH (09:57)
[2019-10-01] MEDS: LYRICA 100MG PO SCH (09:58)
[2019-10-01] MEDS: BUSPAR 5 MG PO SCH (09:58)
[2019-10-01] MEDS: MYRBETRIQ PO SCH (09:58)
[2019-10-01] MEDS: PROTONIX 40 MG IV IV SCH (09:59)
[2019-10-01] MEDS ORDERED: NON-FORMULARY ITEM (Solifenacin Succinate [Vesicare] 10 MG) PO SCH (10:00)
== END 2019-10-01 10:30 | disposition home or self-care (01) ==
LOC: MED SURG 11:29
PROVIDERS: ADMIT Family Medicine; ATTEND Family Medicine
DX: K85.90 Acute pancreatitis without necrosis or infection, unspecified (principal); Z93.2 Ileostomy status; N31.9 Neuromuscular dysfunction of bladder, unspecified; K91.2 Postsurgical malabsorption, not elsewhere classified; N18.3 Chronic kidney disease, stage 3 (moderate); R94.5 Abnormal results of liver function studies; M54.31 Sciatica, right side; Z79.899 Other long term (current) drug therapy
CPT/HCPCS: 36415; 36591; 74018; 80053; 81001; 82150; 83690; 83735; 84484; 85027; 87086; 93005; 93041; 93268; 94762; 96360; 96361; 96365; 96366; 96374; 99211; G0378; J2270; J2550; J3475; J3480; A9270-GY

== ENCOUNTER 2019-11-08 09:01 | Inpatient (IN) | payer MEDICARE ==
[2019-11-08] MEDS ORDERED: MAGNESIUM SULFATE IV SCH ×3 (10:00)
[2019-11-08] MEDS ORDERED: POTASSIUM CHLORIDE IV SCH ×3 (10:00)
[2019-11-08] MEDS ORDERED: [UNRECOGNIZED DRUG - OTHER] IV SCH ×3 (10:00)
[2019-11-08] MEDS: Lactated Ringers 1,000 ML IV SCH (10:04)
[2019-11-08] MEDS: DILAUDID 2 MG INJECTION IV PRN ×2 (10:07→11:46)
[2019-11-08] MEDS: Morphine PCA 1 MG/ML 30 ML IV PRN (14:10)
[2019-11-08] MEDS: Phenergan 25 MG INJ IV PRN ×2 (14:49→22:44)
[2019-11-08] MEDS: BUSPAR 5 MG PO SCH ×2 (14:49→21:00)
[2019-11-08] MEDS ORDERED: Levofloxacin 500MG/100ML D5W 500 MG/100 ML BAG IV SCH (18:30)
[2019-11-08] MEDS: LYRICA 100MG PO SCH (21:00)
[2019-11-08] MEDS: ZOLOFT 50 MG TABLET PO SCH (21:00)
[2019-11-08] MEDS ORDERED: LYRICA 75 MG CAP PO SCH (22:00)
[2019-11-08] MEDS ORDERED: NON-FORMULARY ITEM (Sertraline Hcl [Zoloft] 200 MG) PO SCH (22:00)
[2019-11-09] MEDS: Lactated Ringers 1,000 ML IV SCH ×4 (01:10→18:37)
[2019-11-09 04:37] LABS: Absolute Neutrophil Ct (ANC) 2.15 (1.4-6.9); BASOPHIL % 1.5 % (0.0-0.4); Basophil (Absolute #) 0.07 (0-0.4); Eosinophil % 5.6 % (0.00-5.0); Eosinophil (Absolute #) 0.27 (0-0.5); Hematocrit 35.8 % (35-47); Hemoglobin 11.4 gm/dl (12.0-16.0); Lymphocyte (Absolute #) 1.92 (1.0-4.6); Lymphocytes % 40.2 % (24.0-44.0); Mean Cell Volume 95.2 fl (78-100); Mean Corpuscular Hemoglobin 30.3 pg (26-32); Mean Corpuscular Hgb Concent. 31.8 g/dl (32-36); Mean Platelet Volume 9.4 fl (7.5-11.0); Monocyte (Absolute #) 0.37 (0.0-1.3); Monocytes % 7.7 % (0.0-12.0); Platelet Count 250 K/mm3 (150-450); Red Blood Count 3.76 M/mm3 (4.1-5.4); Red Cell Distribution Width 14.2 % (11.5-14.0); White Blood Count 4.8 K/mm3 (4.0-10.5)
[2019-11-09 04:47] LABS: ALBUMIN 3.6 g/dL (3.5-5.0); ALKALINE PHOSPHATASE 118 U/L (38-126); AMYLASE 104 U/L (30-110); ANION GAP 10.5 MEQ/L (5-15); BLOOD UREA NITROGEN 9 mg/dL (7-17); CHLORIDE 104 mmol/L (98-107); Calcium 8.6 mg/dL (8.4-10.2); Carbon Dioxide 28 mmol/L (22-30); Creatinine 1 0.82 mg/dL (0.52-1.04); Glucose 85 mg/dL (74-106); LIPASE 333 U/L (23-300); MAGNESIUM 1.9 mg/dL (1.6-2.3); Potassium 4.3 mmol/L (3.5-5.1); SGOT/AST 43 U/L (14-36); SGPT/ALT 44 U/L (0-35); SODIUM 139 mmol/L (137-145); Total Protein 6.6 g/dL (6.3-8.2)
--- NOTE | 2019-11-09 08:10 | XRAY ---
Indication: UTI. Pancreatitis. Comparison: September 30, 2019. KUB demonstrates nonspecific nonobstructed bowel gas pattern again with right lower quadrant colostomy, suprapubic catheter, and cholecystectomy clips. No large free air. Solid organs unremarkable. Osseous structures intact. Impression: Nonacute KUB with chronic features.
--- NOTE | 2019-11-09 08:13 | XRAY ---
Indication: Pancreatitis. UTI. Comparison: May 31, 2019. Portable chest again demonstrates minimal left base fibrosis/scarring. No focal infiltrate, consolidation, or large effusion. Heart and mediastinal structures within normal limits again with right Port-A-Cath. Bony thorax intact again with minimal levoscoliosis and old left 6 rib fracture. Impression: Nonacute chest with chronic features.
--- NOTE | 2019-11-09 08:34 | PCM.HP ---
History of Present Illness - Chief Complaint Chief Complaint: Pancreatitis,UTI,Failed Outpatient History of Present Illness: is a 54 year old female pt of mine from [facility] with Crohn's dz (hx colon resection with ileostomy), neurogenic bladder (with suprapubic catheter), chronic pancreatitis, chronic renal failure (on IV fluids every other day), short gut syndrome with chronic hypomagnesemia and hypokalemia, who was admitted directly yesterday from the infusion center for UTI and pancreatitis. Pt has been battling pancreatitis flare for at least about 10d, with some elevation in lipase noted last week. She was given increased IV fluids last week but had to refuse on several days because she felt the fluids were being run so fast that she was overloaded. Her lipase was up to 587 yesterday and she had started vomiting at home; UA was also found to have nitrites and WBC so she was admitted on IVF at 100cc/hr and IV levaquin. 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 This morning she is feeling somewhat better. Wants diet increased to full liquids. I saw pt briefly in the infusion center yesterday; her heart exam was wnl ( lungs with scattered expiratory wheezing). She did have some CVA tenderness on the L, and her abd was TTP in the epigastrum, LUQ, and LLQ with guarding, no rebound; was soft with nl BS. - Review of Systems Abdominal/Gastrointestinal: Abdominal Pain, Nausea, Vomiting, Appetite Changes Psychological: Anxiety All Other Systems: Reviewed and Negative Medications & Allergies Home Medications: Home Medication List Pregabalin [Lyrica] 100 mg PO BID 12/24/16 [History Confirmed 11/08/19] Heparin Flush 500 units/5 ml [Heparin Lock Flush 100 Units/ml 5ml Syringe] 500 units PORT FLUSH PRN PRN disp.syrin 08/10/17 [Rx Confirmed 11/08/19] Buspirone HCl 5 mg [Buspar 5 mg] 15 mg PO TID 01/09/18 [History Confirmed 11/08/19] Esomeprazole Magnesium [Nexium] 40 mg PO DAILY 09/07/18 [History Confirmed 11/07] Sertraline HCl [Zoloft] 200 mg PO HS 11/06/18 [History Confirmed 11/08/19] Hydrocodone/APAP 10/325 mg [[place] 10/325 MG Tablet] 1 tab PO QID PRN PRN tablet 07/25/19 [Rx Confirmed 11/08/19] ondansetron HCL [Ondansetron HCl] 4 mg PO Q4H PRN PRN #30 tablet 09/06/19 [Rx Confirmed 11/08/19] Promethazine HCl 25 mg [Phenergan 25 mg] 1 tab PO Q4H PRN PRN MDD 150 mg 09/20/19 [History Confirmed 11/08/19] Allergies/Adverse Reactions: Allergies Allergy/AdvReac Type Severity Reaction Status Date / Time oxybutynin Allergy Severe Verified 11/04/19 08:22 oxycodone [From Percocet] Allergy Intermediate Hives Verified 11/04/19 08:22 ampicillin Allergy Mild Verified 11/04/19 08:22 erythromycin base Allergy Mild Verified 11/04/19 08:22 [Erythromycin Base] duloxetine HCl Allergy Unknown Tightness Verified 11/04/19 08:22 [From Cymbalta] of Throat - Past Medical History Past Medical History: Yes Neurological History: Peripheral Neuropathy ENT History: No Pertinent History Cardiac History: No Pertinent History Respiratory History: No Pertinent History Endocrine Medical History: Adrenal Insufficiency, Other Musculoskelatal History: Osteoarthritis GI Medical History: Crohns Disease, Pancreatitis, Other History: Renal Disease, Other Pyscho-Social History: Anxiety, Depression Reproductive Disorders: Other Comment: Pt had surgery for ahdesions in the gut and had complications. She has a colostomy and superpubic cather. Pt gets infusions with potassium and magnesium, chronic pancreatitis. - Female History Are you now?: No - Past Surgical History Past Surgical History: Yes (ileostomy, suprapubic catheter) Neuro Surgical History: No Pertinent History Cardiac History: No Pertinent History Respiratory Surgery: No Pertinent History GI Surgical History: Bowel Surgery, Cholecystectomy Genitourinary Surgical Hx: Other Musculskeletal Surgical Hx: No Pertinent History Female Surgical History: Hysterectomy Other Surgical History: has 120 cm of small bowel, urostomy following compications after surgery to remove adhesions. PROCEDURE 09/07/19 TO DEADEN NERVES OF PANCREAS - Social History Smoking Status: Current every day smoker How long have you smoked: 20 Exposure to second hand smoke: Yes Alcohol: None Drug Use: none - Physical Exam Vital Signs: Vital Signs - 24 hr Temp Pulse Resp BP Pulse Ox 11/09/19 07:44 98.2 F 75 18 120/69 95 11/09/19 07:30 12 95 11/09/19 06:10 95 11/09/19 04:00 98.1 F 67 12 115/66 94 L 11/09/19 02:10 95 11/09/19 00:00 97.9 F 68 18 105/56 96 11/08/19 22:10 94 L 11/08/19 20:00 95 11/08/19 19:59 98.6 F 89 20 109/67 95 11/08/19 18:46 95 11/08/19 18:35 97 11/08/19 18:31 97 11/08/19 16:00 98.5 F 78 20 131/85 97 11/08/19 14:10 95 11/08/19 12:00 98.1 F 101 H 18 119/78 94 L 11/08/19 09:15 98.7 F 82 20 145/92 97 General Appearance: mild distress, alert Neurologic Exam: oriented x 3, cooperative Eye Exam: eyes nml inspection Ears, Nose, Throat Exam: moist mucous membranes Neck Exam: normal inspection, non-tender, No lymphadenopathy Respiratory Exam: normal breath sounds, lungs clear, No crackles/rales, No rhonchi, No wheezing Gastrointestinal/Abdomen Exam: soft, normal bowel sounds, tenderness (epigastrum , LUQ, LLQ), guarding, No distention, No mass, No rebound Back Exam: normal inspection, No rash Extremity Exam: normal inspection, No pedal edema, No swelling Skin Exam: normal color, warm, dry, No rash Results - Labs Lab/Micro Results: Lab Results-Last 24 Hours 11/09/19 11/09/19 Range/Units 04:25 04:25 WBC 4.8 (4.0-10.5) K/mm3 RBC 3.76 L (4.1-5.4) M/mm3 Hgb 11.4 L (12.0-16.0) gm/dl Hct 35.8 (35-47) % MCV 95.2 (78-100) fl MCH 30.3 (26-32) pg MCHC 31.8 L (32-36) g/dl RDW 14.2 H (11.5-14.0) % Plt Count 250 (150-450) K/mm3 MPV 9.4 (7.5-11.0) fl Gran % 45.0 (36.0-66.0) % Eos # (Auto) 0.27 (0-0.5) Absolute Lymphs (auto) 1.92 (1.0-4.6) Absolute Monos (auto) 0.37 (0.0-1.3) Lymphocytes % 40.2 (24.0-44.0) % Monocytes % 7.7 (0.0-12.0) % Eosinophils % 5.6 H (0.00-5.0) % Basophils % 1.5 (0.0-0.4) % Absolute Granulocytes 2.15 (1.4-6.9) Basophils # 0.07 (0-0.4) Sodium 139 (137-145) mmol/L Potassium 4.3 D (3.5-5.1) mmol/L Chloride 104 (98-107) mmol/L Carbon Dioxide 28 (22-30) mmol/L Anion Gap 10.5 (5-15) MEQ/L BUN 9 (7-17) mg/dL Creatinine 0.82 (0.52-1.04) mg/dL Estimated GFR > 60.0 ML/MIN Glucose 85 (74-106) mg/dL Calcium 8.6 (8.4-10.2) mg/dL Magnesium 1.9 (1.6-2.3) mg/dL Total Bilirubin 0.40 (0.2-1.3) mg/dL AST 43 H (14-36) U/L ALT 44 H (0-35) U/L Alkaline Phosphatase 118 (38-126) U/L Serum Total Protein 6.6 (6.3-8.2) g/dL Albumin 3.6 (3.5-5.0) g/dL Amylase 104 (30-110) U/L Lipase 333 H (23-300) U/L - Radiology Impressions Radiology Exams & Impressions: Radiology Procedures Category Date Time Status CHEST 1 VIEW (PORTABLE) Routine Exams 11/08/19 18:51 Taken KUB Routine Exams 11/08/19 18:45 Completed Assessment/Plan (1) Pancreatitis Current Visit: No Status: Chronic Qualifiers: Chronicity: acute Pancreatitis type: idiopathic Acute pancreatitis complication: no infection or necrosis Qualified Code(s): K85.00 - Idiopathic acute pancreatitis without necrosis or infection Assessment & Plan: Improved today, with lipase from 587 to 333. Will continue IV fluids, recheck in a.m., when numbers are down and pt feeling better she can d/c to home. Code(s): K85.90 - ACUTE PANCREATITIS WITHOUT NECROSIS OR INFECTION, UNSP (2) UTI (urinary tract infection) Current Visit: No Status: Resolved Qualifiers: Urinary tract infection type: catheter-associated UTI Indwelling urinary catheter type: unspecified Encounter type: initial encounter Qualified Code( s): T83.511A - Infection and inflammatory reaction due to indwelling urethral catheter, initial encounter; N39.0 - Urinary tract infection, site not specified Assessment & Plan: On IV levaquin day #2. Culture is pending (was done in outpatient; staff there called lab to confirm that the culture was pending) Code(s): N39.0 - URINARY TRACT INFECTION, SITE NOT SPECIFIED (3) Elevated LFTs Current Visit: No Status: Chronic Code(s): R94.5 - ABNORMAL RESULTS OF LIVER FUNCTION STUDIES (4) Hypokalemia Current Visit: No Status: Chronic Assessment & Plan: improved this a.m., was repleted yesterday along with Mg. Code(s): E87.6 - HYPOKALEMIA (5) Hypomagnesemia Current Visit: No Status: Chronic Code(s): E83.42 - HYPOMAGNESEMIA (6) Anemia Current Visit: No Status: Chronic Qualifiers: Anemia type: unspecified type Qualified Code(s): D64.9 - Anemia, unspecified Assessment & Plan: mild Code(s): D64.9 - ANEMIA, UNSPECIFIED
[2019-11-09] MEDS: Phenergan 25 MG INJ IV PRN ×3 (08:37→20:48)
[2019-11-09] MEDS: LYRICA 100MG PO SCH ×2 (09:29→20:48)
[2019-11-09] MEDS: Protonix 40MG Tablet PO SCH (09:29)
[2019-11-09] MEDS: BUSPAR 5 MG PO SCH ×3 (09:29→20:46)
[2019-11-09] MEDS: Morphine PCA 1 MG/ML 30 ML IV PRN ×3 (09:32→20:35)
[2019-11-09] MEDS ORDERED: NON-FORMULARY ITEM (Esomeprazole Magnesium [Nexium] 40 MG) PO SCH (10:00)
[2019-11-09] MEDS: ZOLOFT 50 MG TABLET PO SCH (20:47)
[2019-11-09] MEDS ORDERED: Levofloxacin 500MG/100ML D5W 500 MG/100 ML BAG IV SCH (22:00)
[2019-11-10] MEDS: Phenergan 25 MG INJ IV PRN (03:31)
[2019-11-10] MEDS: Lactated Ringers 1,000 ML IV SCH (04:54)
[2019-11-10 05:15] LABS: Hematocrit 34.9 % (35-47); Mean Cell Volume 96.4 fl (78-100); Mean Corpuscular Hemoglobin 30.4 pg (26-32); Mean Corpuscular Hgb Concent. 31.5 g/dl (32-36); Mean Platelet Volume 9.9 fl (7.5-11.0); Platelet Count 256 K/mm3 (150-450); Red Blood Count 3.62 M/mm3 (4.1-5.4); White Blood Count 4.3 K/mm3 (4.0-10.5)
[2019-11-10 05:19] LABS: ALBUMIN 3.7 g/dL (3.5-5.0); ALKALINE PHOSPHATASE 112 U/L (38-126); AMYLASE 93 U/L (30-110); ANION GAP 9.5 MEQ/L (5-15); BLOOD UREA NITROGEN 7 mg/dL (7-17); CHLORIDE 104 mmol/L (98-107); Calcium 8.6 mg/dL (8.4-10.2); Carbon Dioxide 31 mmol/L (22-30); Creatinine 1 0.89 mg/dL (0.52-1.04); Glucose 80 mg/dL (74-106); LIPASE 223 U/L (23-300); MAGNESIUM 1.5 mg/dL (1.6-2.3); Potassium 3.7 mmol/L (3.5-5.1); SGOT/AST 30 U/L (14-36); SGPT/ALT 36 U/L (0-35); SODIUM 140 mmol/L (137-145); Total Protein 6.6 g/dL (6.3-8.2)
[2019-11-10 05:29] VITALS: O2SAT 95
[2019-11-10 07:55] VITALS: BP 131/97; PULSE 72
[2019-11-10] MEDS: LYRICA 100MG PO SCH (09:53)
[2019-11-10] MEDS: Protonix 40MG Tablet PO SCH (09:53)
[2019-11-10] MEDS: BUSPAR 5 MG PO SCH (09:53)
== END 2019-11-10 10:20 | disposition home or self-care (01) | DRG 439 ==
LOC: MED SURG 09:02
PROVIDERS: ADMIT Family Medicine; ATTEND Family Medicine
DX: K85.90 Acute pancreatitis without necrosis or infection, unspecified (principal); N39.0 Urinary tract infection, site not specified; K91.2 Postsurgical malabsorption, not elsewhere classified; K50.90 Crohn's disease, unspecified, without complications; R94.5 Abnormal results of liver function studies; E87.6 Hypokalemia; E83.42 Hypomagnesemia; D64.9 Anemia, unspecified; Z93.2 Ileostomy status; N31.9 Neuromuscular dysfunction of bladder, unspecified; N18.9 Chronic kidney disease, unspecified; Z79.899 Other long term (current) drug therapy; F17.200 Nicotine dependence, unspecified, uncomplicated
CPT/HCPCS: 36415; 36591; 71045; 74018; 80053; 81001; 82150; 83690; 83735; 85025; 85027; 87077; 87086; 87186; 94762; 96374; 99211; J1170; J1642; J1956; J2270; J2550; J3475; J3480; A9270-GY

== ENCOUNTER 2019-11-22 11:33 | Inpatient (IN) | payer MEDICARE ==
[2019-11-22 13:21] LABS: Absolute Neutrophil Ct (ANC) 3.12 (1.4-6.9); BASOPHIL % 1.2 % (0.0-0.4); Basophil (Absolute #) 0.07 (0-0.4); Eosinophil % 4.1 % (0.00-5.0); Eosinophil (Absolute #) 0.25 (0-0.5); Hematocrit 36.7 % (35-47); Hemoglobin 11.9 gm/dl (12.0-16.0); Lymphocyte (Absolute #) 2.14 (1.0-4.6); Lymphocytes % 35.5 % (24.0-44.0); Mean Cell Volume 92.7 fl (78-100); Mean Corpuscular Hemoglobin 30.1 pg (26-32); Mean Corpuscular Hgb Concent. 32.4 g/dl (32-36); Mean Platelet Volume 10.3 fl (7.5-11.0); Monocyte (Absolute #) 0.45 (0.0-1.3); Monocytes % 7.5 % (0.0-12.0); Neutrophil % 51.7 % (36.0-66.0); Platelet Count 305 K/mm3 (150-450); Red Blood Count 3.96 M/mm3 (4.1-5.4)
[2019-11-22] MEDS: DILAUDID 2 MG INJECTION IV PRN ×2 (13:22→19:34)
[2019-11-22] MEDS: Lactated Ringers 1,000 ML IV SCH (13:23)
[2019-11-22 13:25] LABS: ALBUMIN 4.1 g/dL (3.5-5.0); ANION GAP 13.7 MEQ/L (5-15); BILIRUBIN,TOTAL 0.5 mg/dL (0.2-1.3); Calcium 8.8 mg/dL (8.4-10.2); Creatinine 1 1.06 mg/dL (0.52-1.04); Potassium 3.8 mmol/L (3.5-5.1); Total Protein 7.2 g/dL (6.3-8.2)
[2019-11-22] MEDS ORDERED: TYLENOL 325 MG PO PRN (13:54)
[2019-11-22] MEDS: Morphine PCA 1 MG/ML 30 ML IV PRN (15:03)
[2019-11-22] MEDS ORDERED: Zofran 4 MG/2 ML VIAL IV PRN (15:13)
[2019-11-22] MEDS: Phenergan 25 MG INJ IV PRN ×2 (15:33→18:43)
[2019-11-22] MEDS: BUSPAR 5 MG PO SCH ×2 (15:33→23:18)
[2019-11-22] MEDS: LEVOFLOXACIN 750MG/150ML D5W 750 MG/150 ML BAG IV SCH (15:46)
[2019-11-22] MEDS ORDERED: LYRICA 75 MG CAP PO SCH (22:00)
[2019-11-22] MEDS ORDERED: NON-FORMULARY ITEM (Sertraline Hcl [Zoloft] 100 MG) PO SCH (22:00)
[2019-11-22] MEDS: LYRICA 100MG PO SCH (23:18)
[2019-11-22] MEDS: ZOLOFT 50 MG TABLET PO SCH (23:18)
[2019-11-23] MEDS: Morphine PCA 1 MG/ML 30 ML IV PRN ×2 (03:15→14:34)
[2019-11-23] MEDS: Lactated Ringers 1,000 ML IV SCH ×2 (03:19→17:23)
[2019-11-23 04:47] LABS: Absolute Neutrophil Ct (ANC) 2.69 (1.4-6.9); BASOPHIL % 1.1 % (0.0-0.4); Basophil (Absolute #) 0.06 (0-0.4); Eosinophil % 3.8 % (0.00-5.0); Hematocrit 35.7 % (35-47); Hemoglobin 11.4 gm/dl (12.0-16.0); Lymphocyte (Absolute #) 1.96 (1.0-4.6); Lymphocytes % 37.1 % (24.0-44.0); Mean Cell Volume 94.4 fl (78-100); Mean Corpuscular Hemoglobin 30.2 pg (26-32); Mean Corpuscular Hgb Concent. 31.9 g/dl (32-36); Monocyte (Absolute #) 0.38 (0.0-1.3); Monocytes % 7.2 % (0.0-12.0); Neutrophil % 50.8 % (36.0-66.0); Platelet Count 293 K/mm3 (150-450); Red Blood Count 3.78 M/mm3 (4.1-5.4); White Blood Count 5.3 K/mm3 (4.0-10.5)
[2019-11-23 05:17] LABS: ANION GAP 12.1 MEQ/L (5-15); BLOOD UREA NITROGEN 9 mg/dL (7-17); CHLORIDE 105 mmol/L (98-107); Calcium 9.1 mg/dL (8.4-10.2); Carbon Dioxide 26 mmol/L (22-30); Creatinine 1 0.88 mg/dL (0.52-1.04); Glucose 85 mg/dL (74-106); Potassium 4.5 mmol/L (3.5-5.1); SODIUM 139 mmol/L (137-145)
[2019-11-23 05:19] LABS: AMYLASE 127 U/L (30-110); LIPASE 407 U/L (23-300)
[2019-11-23 05:20] LABS: ALBUMIN 3.7 g/dL (3.5-5.0); ALKALINE PHOSPHATASE 107 U/L (38-126); ANION GAP 11.6 MEQ/L (5-15); BLOOD UREA NITROGEN 9 mg/dL (7-17); CHLORIDE 106 mmol/L (98-107); Calcium 9.1 mg/dL (8.4-10.2); Carbon Dioxide 26 mmol/L (22-30); Glucose 85 mg/dL (74-106); MAGNESIUM 1.8 mg/dL (1.6-2.3); Potassium 4.6 mmol/L (3.5-5.1); SGOT/AST 38 U/L (14-36); SGPT/ALT 39 U/L (0-35); SODIUM 139 mmol/L (137-145); Total Protein 6.7 g/dL (6.3-8.2)
[2019-11-23] MEDS: Phenergan 25 MG INJ IV PRN ×3 (06:44→17:41)
[2019-11-23] MEDS: BUSPAR 5 MG PO SCH ×3 (09:57→21:16)
[2019-11-23] MEDS: LYRICA 100MG PO SCH ×2 (09:58→21:17)
[2019-11-23] MEDS: LEVOFLOXACIN 750MG/150ML D5W 750 MG/150 ML BAG IV SCH (10:58)
--- NOTE | 2019-11-23 14:18 | HP ---
HISTORY OF PRESENT ILLNESS: This is a 54 year-old patient of Dr. Love who was seen in the clinic yesterday and made a direct admission. The patient has a long history of Crohn's disease with history of bowel resection resulting in an ileostomy as well as chronic pancreatitis that has been flaring up and a suprapubic catheter. She was found as an outpatient to have a urinary tract infection. She was having increased abdominal pain from her chronic pancreatitis as well as vomiting and poor oral hydration. She on a regular basis gets IV fluids at the infusion center but even this does not seem to be enough to help get her through at this point so the patient was made a direct admission. She reports this morning that her abdominal pain was much better than it was yesterday and then later this morning wanted to try to advance her diet from clear liquids to full liquids. REVIEW OF SYSTEMS: No cough. No fever. No chest pain. Otherwise review of systems as noted in the history of present illness. MEDICATIONS: Please see the home medication reconciliation form. ALLERGIES: OXYBUTYNIN. OXYCODONE. AMPICILLIN. ERYTHROMYCIN. DULOXETINE. PAST MEDICAL HISTORY: Includes chronic pancreatitis, Crohn's disease status post resection, suprapubic catheter, anxiety. PAST SURGICAL HISTORY: She had the bowel resection. SOCIAL HISTORY: Noncontributory at this time. FAMILY HISTORY: Noncontributory. PHYSICAL EXAMINATION: VITAL SIGNS: Temperature current 97.6F, temperature max 98.5F, heart rate 82, respiratory rate 15, blood pressure 123/69. Oxygen saturation 95% on room air. GENERAL: The patient is a pleasant talkative lady lying in bed in no acute distress. CVS: She has a regular rate and rhythm. No murmurs, gallops or rubs are appreciated. CHEST: Clear to auscultation bilaterally. No crackles or wheezes. She has a port that has been accessed. ABDOMEN: Soft. Tender to light touch. She has ostomy bag in place. Suprapubic catheter in place. EXTREMITIES: No clubbing, cyanosis or edema. SKIN: Warm, dry and intact. ASSESSMENT AND PLAN: 1) ACUTE ON CHRONIC PANCREATITIS: Her amylase and lipase were both slightly elevated. 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 We are trying to slowly advance her diet. 2) CROHNS' DISEASE: She has plan to have G-tube placed but that has been postponed due to the global coronavirus pandemic. 3) ANXIETY: Will continue her home medications. 4) URINARY TRACT INFECTION: She is on antibiotic and the organism that is growing is susceptible to those antibiotics. 5) DEHYDRATION: Will continue with IV fluid.
[2019-11-23] MEDS: ZOLOFT 50 MG TABLET PO SCH (21:17)
[2019-11-24] MEDS: Morphine PCA 1 MG/ML 30 ML IV PRN ×3 (00:13→21:10)
[2019-11-24] MEDS: Phenergan 25 MG INJ IV PRN ×4 (03:38→22:06)
[2019-11-24 05:16] LABS: Absolute Neutrophil Ct (ANC) 2.88 (1.4-6.9); BASOPHIL % 0.9 % (0.0-0.4); Basophil (Absolute #) 0.05 (0-0.4); Eosinophil % 3.7 % (0.00-5.0); Eosinophil (Absolute #) 0.21 (0-0.5); Hematocrit 34.3 % (35-47); Hemoglobin 10.7 gm/dl (12.0-16.0); Lymphocyte (Absolute #) 2.01 (1.0-4.6); Lymphocytes % 35.7 % (24.0-44.0); Mean Cell Volume 94.8 fl (78-100); Mean Corpuscular Hemoglobin 29.6 pg (26-32); Mean Corpuscular Hgb Concent. 31.2 g/dl (32-36); Monocyte (Absolute #) 0.48 (0.0-1.3); Monocytes % 8.5 % (0.0-12.0); Neutrophil % 51.2 % (36.0-66.0); Platelet Count 291 K/mm3 (150-450); Red Blood Count 3.62 M/mm3 (4.1-5.4); Red Cell Distribution Width 13.7 % (11.5-14.0); White Blood Count 5.6 K/mm3 (4.0-10.5)
[2019-11-24 05:45] LABS: ALBUMIN 3.7 g/dL (3.5-5.0); ALKALINE PHOSPHATASE 100 U/L (38-126); ANION GAP 11.9 MEQ/L (5-15); BLOOD UREA NITROGEN 8 mg/dL (7-17); CHLORIDE 103 mmol/L (98-107); Calcium 8.8 mg/dL (8.4-10.2); Carbon Dioxide 29 mmol/L (22-30); Creatinine 1 0.87 mg/dL (0.52-1.04); Glucose 91 mg/dL (74-106); MAGNESIUM 1.5 mg/dL (1.6-2.3); Potassium 4.1 mmol/L (3.5-5.1); SGOT/AST 25 U/L (14-36); SGPT/ALT 31 U/L (0-35); SODIUM 139 mmol/L (137-145); Total Protein 6.6 g/dL (6.3-8.2)
[2019-11-24] MEDS: Lactated Ringers 1,000 ML IV SCH (07:47)
--- NOTE | 2019-11-24 08:33 | PCM.NOTE ---
Date and Time: 11/24/19829 Subjective Assessment: Patient reports a sore area under her left breast and states her nurse told her there is a prescription powder that can be put on this. She feels like her hands are a little swollen today. She reports not sleeping well and being up and down all night and having muscle aches. - Review of Systems Constitutional: No Symptoms Respiratory: No Symptoms Cardiac: No Symptoms Abdominal/Gastrointestinal: Abdominal Pain Genitourinary Symptoms: No Symptoms Musculoskeletal: No Symptoms Skin: Rash Objective Exam General Appearance: no apparent distress Neurologic Exam: alert, cooperative Skin Exam: normal color, warm, other (erythematous rash under both breasts) Respiratory Exam: normal breath sounds, lungs clear, No crackles/rales, No rhonchi, No wheezing Cardiovascular Exam: regular rate/rhythm, normal heart sounds, No murmur, No friction rub, No gallop Gastrointestinal/Abdomen Exam: soft, normal bowel sounds, tenderness, No distention, No mass Comments: 11/24/19 14:[address], suprapubic catheter in place. OBJECTIVE DATA Vital Signs: Vital Signs - 24 hr Temp Pulse Resp BP Pulse Ox 11/24/19 08:00 16 11/24/19 07:49 97.8 F 75 16 109/58 96 11/24/19 07:04 94 L 11/24/19 06:00 96 11/24/19 04:00 16 11/24/19 03:46 96.3 F 75 20 108/66 95 11/24/19 02:00 96 11/24/19 00:13 96 11/24/19 00:00 97.1 F 82 16 104/71 95 11/23/19 22:00 98 11/23/19 20:00 18 11/23/19 19:40 97.3 F 76 18 115/82 98 11/23/19 19:35 95 11/23/19 18:00 95 11/23/19 16:00 97.7 F 87 14 114/61 97 11/23/19 14:34 95 11/23/19 14:00 95 11/23/19 12:00 97.6 F 82 15 123/69 95 11/23/19 11:11 95 11/23/19 10:00 95 Pain Assessment - Last Documented Pain Intensity 6 [facility] Intake and Output: Intake & Output 11/22/19 11/23/19 11/24/19 11/25/19 06:59 06:59 06:59 06:59 Intake Total 3796 7679 Output Total 4191 3943 Balance -1817 -951 Weight 66.8 kg Lab Results: Lab Results-Last 24 Hours 11/24/19 11/24/19 Range/Units 04:25 04:25 WBC 5.6 (4.0-10.5) K/mm3 RBC 3.62 L (4.1-5.4) M/mm3 Hgb 10.7 L (12.0-16.0) gm/dl Hct 34.3 L (35-47) % MCV 94.8 (78-100) fl MCH 29.6 (26-32) pg MCHC 31.2 L (32-36) g/dl RDW 13.7 (11.5-14.0) % Plt Count 291 (150-450) K/mm3 MPV 10.0 (7.5-11.0) fl Gran % 51.2 (36.0-66.0) % Eos # (Auto) 0.21 (0-0.5) Absolute Lymphs (auto) 2.01 (1.0-4.6) Absolute Monos (auto) 0.48 (0.0-1.3) Lymphocytes % 35.7 (24.0-44.0) % Monocytes % 8.5 (0.0-12.0) % Eosinophils % 3.7 (0.00-5.0) % Basophils % 0.9 (0.0-0.4) % Absolute Granulocytes 2.88 (1.4-6.9) Basophils # 0.05 (0-0.4) Sodium 139 (137-145) mmol/L Potassium 4.1 (3.5-5.1) mmol/L Chloride 103 (98-107) mmol/L Carbon Dioxide 29 (22-30) mmol/L Anion Gap 11.9 (5-15) MEQ/L BUN 8 (7-17) mg/dL Creatinine 0.87 (0.52-1.04) mg/dL Estimated GFR > 60.0 ML/MIN Glucose 91 (74-106) mg/dL Calcium 8.8 (8.4-10.2) mg/dL Magnesium 1.5 L (1.6-2.3) mg/dL Total Bilirubin 0.40 (0.2-1.3) mg/dL AST 25 (14-36) U/L ALT 31 (0-35) U/L Alkaline Phosphatase 100 (38-126) U/L Serum Total Protein 6.6 (6.3-8.2) g/dL Albumin 3.7 (3.5-5.0) g/dL Assessment/Plan (1) Acute on chronic pancreatitis Current Visit: Yes Status: Acute Assessment & Plan: Patient is starting to tolerate full liquids. Will try to advance to regular diet later today and recheck amylase and lipase in the AM. Her pain is under control at this time. Code(s): K85.90 - ACUTE PANCREATITIS WITHOUT NECROSIS OR INFECTION, UNSP; K86.1 - OTHER CHRONIC PANCREATITIS (2) Crohns disease Current Visit: No Status: Chronic Qualifiers: Code(s): K50.90 - CROHN'S DISEASE, UNSPECIFIED, WITHOUT COMPLICATIONS (3) UTI (urinary tract infection) Current Visit: No Status: Acute Onset Date: ~07/17/18 Qualifiers: Assessment & Plan: Continue current antibiotic. Code(s): N39.0 - URINARY TRACT INFECTION, SITE NOT SPECIFIED (4) Tinea corporis Current Visit: Yes Status: Acute Assessment & Plan: Start nystatin powder. Code(s): B35.4 - TINEA CORPORIS
[2019-11-24] MEDS: LYRICA 100MG PO SCH ×2 (08:55→21:15)
[2019-11-24] MEDS: BUSPAR 5 MG PO SCH ×3 (08:55→21:15)
[2019-11-24] MEDS: NYSTOP POWDER 15 GM TP SCH ×2 (08:56→21:15)
[2019-11-24] MEDS ORDERED: Magnesium Sulfate 1 GM/2 ML VIAL*** 2 GM in Sodium Chloride 0.9% 100 ML IVPB 100 ML IV SCH (10:00)
[2019-11-24] MEDS ORDERED: Magnesium Sulfate 1 GM/2 ML VIAL IV ONE (10:00)
[2019-11-24] MEDS: LEVOFLOXACIN 750MG/150ML D5W 750 MG/150 ML BAG IV SCH (10:45)
[2019-11-24] MEDS: ZOLOFT 50 MG TABLET PO SCH (21:15)
[2019-11-25 05:07] LABS: Absolute Neutrophil Ct (ANC) 2.87 (1.4-6.9); BASOPHIL % 0.8 % (0.0-0.4); Basophil (Absolute #) 0.04 (0-0.4); Eosinophil % 4.3 % (0.00-5.0); Eosinophil (Absolute #) 0.22 (0-0.5); Hematocrit 33.9 % (35-47); Hemoglobin 10.4 gm/dl (12.0-16.0); Lymphocytes % 31.3 % (24.0-44.0); Mean Cell Volume 94.4 fl (78-100); Mean Corpuscular Hgb Concent. 30.7 g/dl (32-36); Monocyte (Absolute #) 0.39 (0.0-1.3); Monocytes % 7.6 % (0.0-12.0); Platelet Count 293 K/mm3 (150-450); Red Blood Count 3.59 M/mm3 (4.1-5.4); Red Cell Distribution Width 13.8 % (11.5-14.0); White Blood Count 5.1 K/mm3 (4.0-10.5)
[2019-11-25 05:19] LABS: AMYLASE 99 U/L (30-110); LIPASE 181 U/L (23-300)
[2019-11-25 05:21] LABS: ALBUMIN 3.5 g/dL (3.5-5.0); ALKALINE PHOSPHATASE 95 U/L (38-126); BLOOD UREA NITROGEN 10 mg/dL (7-17); CHLORIDE 102 mmol/L (98-107); Calcium 8.7 mg/dL (8.4-10.2); Carbon Dioxide 29 mmol/L (22-30); Creatinine 1 0.95 mg/dL (0.52-1.04); Glucose 90 mg/dL (74-106); MAGNESIUM 1.8 mg/dL (1.6-2.3); Potassium 3.9 mmol/L (3.5-5.1); SGOT/AST 21 U/L (14-36); SGPT/ALT 25 U/L (0-35); SODIUM 138 mmol/L (137-145); Total Protein 6.1 g/dL (6.3-8.2)
[2019-11-25] MEDS: Phenergan 25 MG INJ IV PRN ×2 (08:50→13:36)
[2019-11-25] MEDS: LYRICA 100MG PO SCH ×2 (08:54→21:07)
[2019-11-25] MEDS: BUSPAR 5 MG PO SCH ×3 (08:54→21:07)
[2019-11-25] MEDS: LEVOFLOXACIN 750MG/150ML D5W 750 MG/150 ML BAG IV SCH (08:55)
[2019-11-25] MEDS: NYSTOP POWDER 15 GM TP SCH ×2 (08:58→21:08)
--- NOTE | 2019-11-25 10:07 | PCM.NOTE ---
Date and Time: 11/25/19 1002 Subjective Assessment: Patient reports her pelvic pain is better this AM. 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 She reports the pelvic pain was like a pressure from a UTI. She had her diet advanced yesterday and reports she had some nausea after breakfast this am but otherwise advancing her diet went well. She reports she has pain medication that she takes at home. - Review of Systems Constitutional: No Symptoms Respiratory: No Symptoms Cardiac: No Symptoms Abdominal/Gastrointestinal: Abdominal Pain Genitourinary Symptoms: No Symptoms Musculoskeletal: No Symptoms Objective Exam General Appearance: no apparent distress Neurologic Exam: alert, cooperative, normal mood/affect Skin Exam: normal color, warm, dry Respiratory Exam: normal breath sounds, lungs clear, No crackles/rales, No rhonchi, No wheezing Cardiovascular Exam: regular rate/rhythm, normal heart sounds, No murmur, No friction rub, No gallop Gastrointestinal/Abdomen Exam: soft, normal bowel sounds, tenderness, other ( suprapubic catheter and ileostomy in place) Extremity Exam: normal inspection, other (no c/c/e) OBJECTIVE DATA Vital Signs: Vital Signs - 24 hr Temp Pulse Resp BP Pulse Ox 11/25/19 08:00 18 11/25/19 07:20 92 L 11/25/19 07:00 98.6 F 96 H 18 131/82 94 L 11/25/19 05:10 95 11/25/19 04:21 93 L 11/25/19 04:00 12 11/25/19 03:00 97.5 F 72 12 115/68 93 L 11/25/19 01:10 95 11/25/19 00:21 95 11/25/19 00:00 18 11/24/19 23:00 97.9 F 81 21 122/71 95 11/24/19 21:10 96 11/24/19 20:21 96 11/24/19 20:00 16 11/24/19 19:58 94 L 11/24/19 19:00 98.5 F 84 16 122/78 96 11/24/19 16:21 94 L 11/24/19 16:00 18 11/24/19 15:00 97.9 F 89 18 120/70 94 L 11/24/19 14:00 94 L 11/24/19 12:21 97 11/24/19 12:00 19 11/24/19 11:00 97.5 F 76 19 130/69 97 Pain Assessment - Last Documented Pain Intensity 6 Pain Scale Used 0-10 Pain Scale Intake and Output: Intake & Output 11/23/19 11/24/19 11/25/19 11/26/19 06:59 06:59 06:59 06:59 Intake Total 4537 3869 2317 Output Total 4606 5980 4000 Balance -8784 -583 -0858 Weight 66.8 kg Lab Results: Lab Results-Last 24 Hours 11/25/19 11/25/19 11/25/19 Range/Units 04:25 04:25 04:25 WBC 5.1 (4.0-10.5) K/mm3 RBC 3.59 L (4.1-5.4) M/mm3 Hgb 10.4 L (12.0-16.0) gm/dl Hct 33.9 L (35-47) % MCV 94.4 (78-100) fl MCH 29.0 (26-32) pg MCHC 30.7 L (32-36) g/dl RDW 13.8 (11.5-14.0) % Plt Count 293 (150-450) K/mm3 MPV 10.0 (7.5-11.0) fl Gran % 56.0 (36.0-66.0) % Eos # (Auto) 0.22 (0-0.5) Absolute Lymphs (auto) 1.60 (1.0-4.6) Absolute Monos (auto) 0.39 (0.0-1.3) Lymphocytes % 31.3 (24.0-44.0) % Monocytes % 7.6 (0.0-12.0) % Eosinophils % 4.3 (0.00-5.0) % Basophils % 0.8 (0.0-0.4) % Absolute Granulocytes 2.87 (1.4-6.9) Basophils # 0.04 (0-0.4) Sodium 138 (137-145) mmol/L Potassium 3.9 (3.5-5.1) mmol/L Chloride 102 (98-107) mmol/L Carbon Dioxide 29 (22-30) mmol/L Anion Gap 11.0 (5-15) MEQ/L BUN 10 (7-17) mg/dL Creatinine 0.95 (0.52-1.04) mg/dL Estimated GFR > 60.0 ML/MIN Glucose 90 (74-106) mg/dL Calcium 8.7 (8.4-10.2) mg/dL Magnesium 1.8 (1.6-2.3) mg/dL Total Bilirubin 0.40 (0.2-1.3) mg/dL AST 21 (14-36) U/L ALT 25 (0-35) U/L Alkaline Phosphatase 95 (38-126) U/L Serum Total Protein 6.1 L (6.3-8.2) g/dL Albumin 3.5 (3.5-5.0) g/dL Amylase 99 (30-110) U/L Lipase 181 (23-300) U/L Multi-Disciplinary Progress Notes: Multi-Disciplinary Progress Notes 11/24/19 11:02 Case Management Note by Mirela Rose NO CHANGE IN DC PLANS AT THIS TIME Initialized on 11/24/19 11:02 - END OF NOTE Assessment/Plan (1) Acute on chronic pancreatitis Current Visit: Yes Status: Acute Assessment & Plan: Much improved. Patient would like for amylase and lipase to be checked again in the AM as she states whenever she goes home, these numbers go back up quickly. 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 Code(s): K85.90 - ACUTE PANCREATITIS WITHOUT NECROSIS OR INFECTION, UNSP; K86.1 - OTHER CHRONIC PANCREATITIS (2) Crohns disease Current Visit: No Status: Chronic Qualifiers: Code(s): K50.90 - CROHN'S DISEASE, UNSPECIFIED, WITHOUT COMPLICATIONS (3) UTI (urinary tract infection) Current Visit: No Status: Acute Onset Date: ~07/17/18 Qualifiers: Assessment & Plan: Continue levofloxacin. Day 4 today. Code(s): N39.0 - URINARY TRACT INFECTION, SITE NOT SPECIFIED (4) Tinea corporis Current Visit: Yes Status: Acute Assessment & Plan: Continue nystatin. Code(s): B35.4 - TINEA CORPORIS (5) Suprapubic catheter Current Visit: No Status: Chronic Assessment & Plan: She reports Dr. Mayberry at is her urologist. Code(s): Z93.59 - OTHER CYSTOSTOMY STATUS
[2019-11-25] MEDS: MAG-OX 400 PO SCH (11:34)
[2019-11-25] MEDS: Morphine PCA 1 MG/ML 30 ML IV PRN ×2 (14:17→22:50)
[2019-11-25] MEDS: Lactated Ringers 1,000 ML IV SCH (17:14)
[2019-11-25] MEDS: ZOLOFT 50 MG TABLET PO SCH (21:07)
[2019-11-26] MEDS: Phenergan 25 MG INJ IV PRN ×2 (02:11→06:38)
[2019-11-26 05:08] LABS: Basophil (Absolute #) 0.05 (0-0.4); Hematocrit 31.9 % (35-47); Hemoglobin 9.9 gm/dl (12.0-16.0); Lymphocyte (Absolute #) 1.96 (1.0-4.6); Mean Cell Volume 94.9 fl (78-100); Mean Corpuscular Hemoglobin 29.5 pg (26-32); Mean Platelet Volume 9.8 fl (7.5-11.0); Monocyte (Absolute #) 0.42 (0.0-1.3); Monocytes % 8.3 % (0.0-12.0); Neutrophil % 47.7 % (36.0-66.0); Platelet Count 284 K/mm3 (150-450); Red Blood Count 3.36 M/mm3 (4.1-5.4); Red Cell Distribution Width 14.1 % (11.5-14.0)
[2019-11-26 05:29] LABS: AMYLASE 75 U/L (30-110); LIPASE 204 U/L (23-300)
[2019-11-26 05:30] LABS: ALBUMIN 3.3 g/dL (3.5-5.0); ALKALINE PHOSPHATASE 78 U/L (38-126); ANION GAP 8.7 MEQ/L (5-15); BLOOD UREA NITROGEN 11 mg/dL (7-17); CHLORIDE 103 mmol/L (98-107); Calcium 8.3 mg/dL (8.4-10.2); Carbon Dioxide 32 mmol/L (22-30); Creatinine 1 0.88 mg/dL (0.52-1.04); Glucose 92 mg/dL (74-106); MAGNESIUM 1.6 mg/dL (1.6-2.3); Potassium 3.5 mmol/L (3.5-5.1); SGOT/AST 28 U/L (14-36); SGPT/ALT 29 U/L (0-35); SODIUM 140 mmol/L (137-145)
[2019-11-26] MEDS ORDERED: POTASSIUM CHLORIDE 20 mEq IN WATER 100ML 20 MEQ/100 ML BAG IV SCH (08:45)
[2019-11-26] MEDS ORDERED: Magnesium Sulfate 1 GM/2 ML VIAL IV ONE (09:00)
[2019-11-26] MEDS ORDERED: Potassium Chloride 40 MEQ/20 ML VIAL 40 MEQ, Magnesium Sulfate 1 GM/2 ML VIAL*** 1 GM i... IV ONE ×3 (09:00)
[2019-11-26] MEDS: BUSPAR 5 MG PO SCH ×2 (09:06→14:49)
[2019-11-26] MEDS: LYRICA 100MG PO SCH (09:06)
[2019-11-26] MEDS: MAG-OX 400 PO SCH (09:07)
[2019-11-26] MEDS: LEVOFLOXACIN 750MG/150ML D5W 750 MG/150 ML BAG IV SCH (09:08)
[2019-11-26] MEDS: NYSTOP POWDER 15 GM TP SCH (09:09)
[2019-11-26] MEDS ORDERED: Nystatin SUSPENSION 60 ML PO SCH (10:00)
[2019-11-26] MEDS ORDERED: Norco 10/325 MG Tablet PO PRN (10:18)
[2019-11-26 12:00] VITALS: O2SAT 97
[2019-11-26] MEDS ORDERED: MORPHINE SULFATE 2 MG INJ IV PRN (12:12)
[2019-11-26] MEDS ORDERED: BENADRYL 25 MG CAPSULE PO ONE (14:45)
--- NOTE | 2019-11-26 15:56 | PCM.DCORD ---
- Discharge Discharge Date: 11/26/19 Disposition: Home, Self-Care Condition: Fair Prescriptions: Continue Pregabalin [Lyrica] 100 mg PO BID Heparin Flush 500 units/5 ml [Heparin Lock Flush 100 Units/ml 5ml Syringe ] 500 units PORT FLUSH PRN PRN disp.syrin PRN Reason: Iv Port Flush Buspirone HCl 5 mg [Buspar 5 mg] 15 mg PO TID Sertraline HCl [Zoloft] 100 mg PO HS Hydrocodone/APAP 10/325 mg [[place] 10/325 MG Tablet] 1 tab PO QID PRN PRN tablet PRN Reason: Pain ondansetron HCL [Ondansetron HCl] 4 mg PO Q4H PRN PRN #30 tablet PRN Reason: Nausea Instructions: Pancreatitis (DC), Urinary Tract Infection, Adult (DC) Additional Instructions: Go to ER if any trouble breathing, scratchy throat, or any other concerns. Do not take nystatin liquid by mouth. Follow up with: JOSE ZAMORANO [Primary Care Provider] - 1 Week ( Friday) Forms: Discharge Instructions
[2019-11-26 16:01] VITALS: BP 123/78; PULSE 77
--- NOTE | 2019-11-29 15:22 | DS ---
DISCHARGE DIAGNOSES: 1) ACUTE ON CHRONIC PANCREATITIS. 2) CROHNS DISEASE. 3) URINARY TRACT INFECTION. 4) TINEA CORPORIS. 5) SUPRAPUBIC CATHETER. 6) RIGHT LIP SWELLING. 7) POOR DENTITION. DISCHARGE PHYSICAL EXAMINATION: VITALS: Temperature current 98.5F, heart rate 83, respiratory rate 18, blood pressure 107/72. Oxygen saturation 97% on room air. GENERAL: The patient is sitting up in her chair in no acute distress. CVS: She has a regular rate and rhythm. No murmurs, gallops or rubs. CHEST: Clear to auscultation bilaterally. No crackles or wheezes. ABDOMEN: Soft with mild tenderness to light touch. Normal bowel sounds. Ileostomy in place. Suprapubic catheter in place. EXTREMITIES: No clubbing, cyanosis or edema. HEENT: Mouth - Her right upper lip is significantly swollen with a little bit of a blister on her left lower lip and she has very poor dentition especially around where the right upper lip swelling is. HOSPITAL COURSE: 1) ACUTE ON CHRONIC PANCREATITIS: The day before discharge her amylase and lipase were within normal limits and remained there. She was eating tater tots this morning for breakfast. 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 She has pain medication that she takes at home. She reports she has a follow up appointment scheduled with her primary care doctor a week from today and already scheduled to be in the infusion center for fluids on Friday. She desires to go home at this time. 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 3) URINARY TRACT INFECTION: She finished five days of Levaquin at 750 mg a day so I think we can discontinue that at this time. 4) TINEA CORPORIS: This got better with Nystatin powder. 5) SUPRAPUBIC CATHETER: She reports Dr. Mayberry is her urologist at and she will follow up with him concerning this and is stable at this time. 6) RIGHT LIP SWELLING: Concerning for allergic reaction to the oral Nystatin. The patient was instructed not to take this anymore. I did suggest to the patient that it might be better to stay a couple more hours to make sure she does okay with the lip swelling that she developed after taking oral Nystatin but she would like to go home so she was instructed to go to the emergency room if any trouble breathing, scratchy throat or worsening symptoms. She voiced her understanding. She was given Benadryl here in the hospital for that. 7) POOR DENTITION: She has some looks like broken teeth, gingivitis. Again, she has been on Levaquin for five days. She will need to follow up with her dentist as an outpatient. DISCHARGE MEDICATIONS: Please see the discharge order. DISPOSITION: The patient was discharged to home in fair condition to follow up with primary care provider.
== END 2019-11-26 16:10 | disposition home or self-care (01) | DRG 439 ==
LOC: MED SURG 12:01 → OBSVTOIN 11-23 13:44
PROVIDERS: ADMIT Family Medicine; ATTEND Internal Medicine
DX: K85.90 Acute pancreatitis without necrosis or infection, unspecified (principal); K50.90 Crohn's disease, unspecified, without complications; N39.0 Urinary tract infection, site not specified; K86.1 Other chronic pancreatitis; E86.0 Dehydration; B35.4 Tinea corporis; F41.9 Anxiety disorder, unspecified; M79.10 Myalgia, unspecified site; Z93.59 Other cystostomy status; Z79.899 Other long term (current) drug therapy; Z93.2 Ileostomy status
CPT/HCPCS: 36415; 80048; 80053; 82150; 83690; 83735; 84132; 85025; 93268; 94762; G0378; J1170; J1642; J1956; J2270; J2550; J3475; A9270-GY

== ENCOUNTER 2019-12-06 09:49 | Inpatient (IN) | payer MEDICARE ==
[2019-12-06] MEDS ORDERED: DILAUDID 1 MG/1ML PCA IV PRN (13:40)
[2019-12-06] MEDS ORDERED: DILAUDID 2 MG INJECTION IV ONE (13:45)
[2019-12-06] MEDS: Lactated Ringers 1,000 ML IV SCH (14:26)
[2019-12-06] MEDS: Phenergan 25 MG INJ IV PRN ×2 (14:26→21:12)
[2019-12-06] MEDS ORDERED: ONDANSETRON HCL 4 MG PO PRN (16:43)
[2019-12-06] MEDS ORDERED: Norco 10/325 MG Tablet PO PRN (16:43)
[2019-12-06] MEDS ORDERED: ZOFRAN ODT 4 MG PO PRN (16:47)
[2019-12-06] MEDS: BENADRYL 50 MG/ML IV PRN ×2 (19:02→23:32)
[2019-12-06] MEDS: ZOLOFT 50 MG TABLET PO SCH (21:12)
[2019-12-06] MEDS: LYRICA 100MG PO SCH (21:12)
[2019-12-06] MEDS: BUSPAR 5 MG PO SCH (21:12)
[2019-12-06] MEDS ORDERED: LYRICA 75 MG CAP PO SCH (22:00)
[2019-12-06] MEDS ORDERED: NON-FORMULARY ITEM (Sertraline Hcl [Zoloft] 100 MG) PO SCH (22:00)
[2019-12-07] MEDS: Lactated Ringers 1,000 ML IV SCH ×2 (02:24→14:50)
[2019-12-07] MEDS: BENADRYL 50 MG/ML IV PRN ×5 (04:10→20:29)
[2019-12-07 06:20] LABS: ALBUMIN 3.8 g/dL (3.5-5.0); ALKALINE PHOSPHATASE 121 U/L (38-126); AMYLASE 121 U/L (30-110); ANION GAP 9.7 MEQ/L (5-15); BLOOD UREA NITROGEN 10 mg/dL (7-17); CHLORIDE 103 mmol/L (98-107); Calcium 8.7 mg/dL (8.4-10.2); Carbon Dioxide 29 mmol/L (22-30); Creatinine 1 0.82 mg/dL (0.52-1.04); Glucose 76 mg/dL (74-106); LIPASE 339 U/L (23-300); MAGNESIUM 2.1 mg/dL (1.6-2.3); Potassium 4.3 mmol/L (3.5-5.1); SGOT/AST 42 U/L (14-36); SGPT/ALT 49 U/L (0-35); SODIUM 137 mmol/L (137-145); Total Protein 6.9 g/dL (6.3-8.2)
[2019-12-07 06:31] LABS: Hematocrit 35.1 % (35-47); Hemoglobin 11.3 gm/dl (12.0-16.0); Mean Cell Volume 92.9 fl (78-100); Mean Corpuscular Hemoglobin 29.9 pg (26-32); Mean Corpuscular Hgb Concent. 32.2 g/dl (32-36); Mean Platelet Volume 10.3 fl (7.5-11.0); Platelet Count 280 K/mm3 (150-450); Red Blood Count 3.78 M/mm3 (4.1-5.4); Red Cell Distribution Width 14.3 % (11.5-14.0); White Blood Count 5.1 K/mm3 (4.0-10.5)
[2019-12-07] MEDS: Zofran 4 MG/2 ML VIAL IV PRN (08:10)
[2019-12-07] MEDS: LYRICA 100MG PO SCH ×2 (10:11→20:29)
[2019-12-07] MEDS: BUSPAR 5 MG PO SCH ×3 (10:11→20:29)
[2019-12-07] MEDS: Phenergan 25 MG INJ IV PRN ×2 (14:17→23:28)
[2019-12-07 17:16] LABS: AMYLASE 105 U/L (30-110); LIPASE 370 U/L (23-300)
[2019-12-07] MEDS: ZOLOFT 50 MG TABLET PO SCH (20:29)
--- NOTE | 2019-12-07 21:59 | PCM.HP ---
History of Present Illness - Chief Complaint Chief Complaint: PANCREATITIS, ACUTE ON CHRONIC Date: 12/07/19 History of Present Illness: is a 54 year old female that was admitted to the hospital for routine management of acute on chronic pancreatitis flare. Patient was started on her normal routine for flare which includes IV fluids LR, diuladid, zofran, benadryl and clear liquid diet. Patient reports that she was starting to have her regular pain that she experiences during one of her flares. She feels slightly better after receiving her routine treatment however when she started a regular diet she started having more abdominal pain. Her initial amylase and lipase were elevated and will follow up on repeat. Patient reports some abdominal pain. She denies constipation and reports her ileostomy usually has loose stool. She has a urinary cath. She has no other reported symptoms or complaints at this time. - Review of Systems All Other Systems: Reviewed and Negative (Except for hpi) Medications & Allergies Home Medications: Home Medication List Pregabalin [Lyrica] 100 mg PO BID 12/24/16 [History Confirmed 12/06/19] Heparin Flush 500 units/5 ml [Heparin Lock Flush 100 Units/ml 5ml Syringe] 500 units PORT FLUSH PRN PRN disp.syrin 08/10/17 [Rx Confirmed 12/06/19] Buspirone HCl 5 mg [Buspar 5 mg] 15 mg PO TID 01/09/18 [History Confirmed 12/06/19] Sertraline HCl [Zoloft] 100 mg PO HS 11/06/18 [History Confirmed 12/06/19] Hydrocodone/APAP 10/325 mg [[place] 10/325 MG Tablet] 1 tab PO QID PRN PRN tablet 07/25/19 [Rx Confirmed 12/06/19] ondansetron HCL [Ondansetron HCl] 4 mg PO Q4H PRN PRN #30 tablet 09/06/19 [Rx Confirmed 12/06/19] Nitrofurantoin Macro 100 mg [Macrobid 100MG Capsule] 100 mg PO BIDWM 3 Days #6 capsule 12/08/19 [Rx] Allergies/Adverse Reactions: Allergies Allergy/AdvReac Type Severity Reaction Status Date / Time oxybutynin Allergy Severe Swelling Verified 12/04/19 07:55 oxycodone [From Percocet] Allergy Intermediate Hives Verified 12/04/19 07:55 ampicillin Allergy Mild Hives Verified 12/04/19 07:55 erythromycin base Allergy Mild Hives Verified 12/04/19 07:55 [Erythromycin Base] duloxetine HCl Allergy Unknown Tightness Verified 12/04/19 07:55 [From Cymbalta] of Throat nystatin AdvReac swellling Verified 12/04/19 07:55 moprhin AdvReac Severe Swelling Uncoded 12/04/19 07:55 - Past Medical History Past Medical History: Yes Neurological History: Peripheral Neuropathy ENT History: No Pertinent History Cardiac History: No Pertinent History Respiratory History: No Pertinent History Endocrine Medical History: Adrenal Insufficiency, Other Musculoskelatal History: Osteoarthritis GI Medical History: Crohns Disease, Pancreatitis, Other History: Renal Disease, Other Pyscho-Social History: Anxiety, Depression Reproductive Disorders: Other Comment: Pt had surgery for adhesions in the gut and had complications. She has a colostomy and superpubic cather. Pt gets infusions with potassium and magnesium, chronic pancreatitis. - Female History Are you now?: No - Past Surgical History Past Surgical History: Yes (ileostomy, suprapubic catheter) Neuro Surgical History: No Pertinent History Cardiac History: No Pertinent History Respiratory Surgery: No Pertinent History GI Surgical History: Bowel Surgery, Cholecystectomy Genitourinary Surgical Hx: Other Musculskeletal Surgical Hx: No Pertinent History Female Surgical History: Hysterectomy Other Surgical History: has 120 cm of small bowel, urostomy following compications after surgery to remove adhesions. PROCEDURE 09/07/19 TO DEADEN NERVES OF PANCREASE - Social History Smoking Status: Former smoker How long have you smoked: years Exposure to second hand smoke: Yes Alcohol: None Drug Use: none - Physical Exam Vital Signs: Vital Signs - 24 hr Temp Pulse Resp BP Pulse Ox 12/07/19 20:08 97 12/07/19 20:00 98.7 F 72 19 135/71 96 12/07/19 16:00 72 14 96 12/07/19 12:55 96 12/07/19 12:00 98.1 F 73 20 122/63 97 12/07/19 08:00 98.0 F 70 18 120/74 96 12/07/19 04:00 97.7 F 70 16 103/64 96 12/07/19 00:00 16 12/06/19 23:48 97.6 F 71 16 110/65 95 Oxygen-Last 24 hours Oxygen Flowrate (L/min)-RT 2 General Appearance: mild distress Neurologic Exam: alert, oriented x 3, 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, 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, normal mood/affect, No depressed mood/affect Eye Exam: eyes nml inspection Ears, Nose, Throat Exam: moist mucous membranes Neck Exam: normal inspection Respiratory Exam: normal breath sounds, lungs clear, No respiratory distress, No diminished breath sounds, No wheezing Cardiovascular Exam: regular rate/rhythm, normal heart sounds, No murmur, No friction rub, No gallop, No tachycardia Gastrointestinal/Abdomen Exam: soft, normal bowel sounds, tenderness, other ( ileostomy bag present) Pelvic Exam: deferred Rectal Exam: deferred Back Exam: normal inspection Extremity Exam: normal inspection Skin Exam: normal color, warm, dry, No rash Results - Labs Lab/Micro Results: Lab Results-Last 24 Hours 12/07/19 12/07/19 12/07/19 Range/Units 05:20 05:20 16:25 WBC 5.1 (4.0-10.5) K/mm3 RBC 3.78 L (4.1-5.4) M/mm3 Hgb 11.3 L (12.0-16.0) gm/dl Hct 35.1 (35-47) % MCV 92.9 (78-100) fl MCH 29.9 (26-32) pg MCHC 32.2 (32-36) g/dl RDW 14.3 H (11.5-14.0) % Plt Count 280 (150-450) K/mm3 MPV 10.3 (7.5-11.0) fl Sodium 137 (137-145) mmol/L Potassium 4.3 (3.5-5.1) mmol/L Chloride 103 (98-107) mmol/L Carbon Dioxide 29 (22-30) mmol/L Anion Gap 9.7 (5-15) MEQ/L BUN 10 (7-17) mg/dL Creatinine 0.82 (0.52-1.04) mg/dL Estimated GFR > 60.0 ML/MIN Glucose 76 (74-106) mg/dL Calcium 8.7 (8.4-10.2) mg/dL Magnesium 2.1 (1.6-2.3) mg/dL Total Bilirubin 0.40 (0.2-1.3) mg/dL AST 42 H (14-36) U/L ALT 49 H (0-35) U/L Alkaline Phosphatase 121 (38-126) U/L Serum Total Protein 6.9 (6.3-8.2) g/dL Albumin 3.8 (3.5-5.0) g/dL Amylase 121 H 105 (30-110) U/L Lipase 339 H 370 H (23-300) U/L Assessment/Plan (1) Acute on chronic pancreatitis Current Visit: No Status: Acute Assessment & Plan: Patient was started on her routine regimen for pancreatitis including LR, pain medication and antinausea medication. She was started on clear liquid diet and progressed to regular diet. Patient had repeat labs that showed lipase initially trending and then trending down. Patient was feeling well enough to go home and will resume her infusion treatments. Code(s): K85.90 - ACUTE PANCREATITIS WITHOUT NECROSIS OR INFECTION, UNSP; K86.1 - OTHER CHRONIC PANCREATITIS (2) UTI (urinary tract infection) Current Visit: No Status: Acute Onset Date: ~07/17/18 Qualifiers: Assessment & Plan: Will follow up on culture and treat appropriately Code(s): N39.0 - URINARY TRACT INFECTION, SITE NOT SPECIFIED (3) Abdominal pain Current Visit: No Status: Chronic Onset Date: ~07/17/18 Qualifiers: Abdominal location: epigastric Qualified Code(s): R10.13 - Epigastric pain Assessment & Plan: Same plan as for pancreatitis Code(s): R10.9 - UNSPECIFIED ABDOMINAL PAIN (4) Ileostomy in place Current Visit: No Status: Chronic Assessment & Plan: Patient's ileostomy present and functioning appropriately Code(s): Z93.2 - ILEOSTOMY STATUS
[2019-12-08] MEDS: BENADRYL 50 MG/ML IV PRN ×4 (00:54→17:46)
[2019-12-08] MEDS: Lactated Ringers 1,000 ML IV SCH ×2 (03:27→05:32)
[2019-12-08 04:56] LABS: Hematocrit 32.4 % (35-47); Hemoglobin 10.1 gm/dl (12.0-16.0); Mean Cell Volume 94.5 fl (78-100); Mean Corpuscular Hemoglobin 29.4 pg (26-32); Mean Corpuscular Hgb Concent. 31.2 g/dl (32-36); Mean Platelet Volume 9.8 fl (7.5-11.0); Platelet Count 268 K/mm3 (150-450); Red Blood Count 3.43 M/mm3 (4.1-5.4); Red Cell Distribution Width 14.1 % (11.5-14.0); White Blood Count 4.6 K/mm3 (4.0-10.5)
[2019-12-08 05:17] LABS: ALBUMIN 3.3 g/dL (3.5-5.0); ALKALINE PHOSPHATASE 96 U/L (38-126); AMYLASE 103 U/L (30-110); ANION GAP 10.8 MEQ/L (5-15); BLOOD UREA NITROGEN 15 mg/dL (7-17); CHLORIDE 103 mmol/L (98-107); Calcium 8.3 mg/dL (8.4-10.2); Carbon Dioxide 28 mmol/L (22-30); Creatinine 1 0.98 mg/dL (0.52-1.04); Glucose 84 mg/dL (74-106); LIPASE 379 U/L (23-300); MAGNESIUM 1.6 mg/dL (1.6-2.3); Potassium 4.3 mmol/L (3.5-5.1); SGOT/AST 28 U/L (14-36); SGPT/ALT 37 U/L (0-35); SODIUM 138 mmol/L (137-145); Total Protein 6.1 g/dL (6.3-8.2)
[2019-12-08] MEDS: Phenergan 25 MG INJ IV PRN (05:39)
[2019-12-08] MEDS: Zofran 4 MG/2 ML VIAL IV PRN (10:27)
[2019-12-08] MEDS: LYRICA 100MG PO SCH (11:21)
[2019-12-08] MEDS: BUSPAR 5 MG PO SCH ×2 (11:21→17:18)
[2019-12-08 11:42] VITALS: O2SAT 96
[2019-12-08 16:31] VITALS: BP 123/59; PULSE 78
[2019-12-08] MEDS ORDERED: Macrobid 100MG Capsule PO SCH (17:00)
--- NOTE | 2019-12-08 18:00 | PCM.DS ---
Discharge Summary Date of Admission: 12/07/19 13:38 Date of Discharge: 12/08/19 Admitting Physician: JOSE ZAMORANO Primary Care Provider: JOSE ZAMORANO Allergies Allergies oxybutynin Allergy (Severe, Verified 12/04/19 07:55) Swelling pharyngeal swelling oxycodone [From Percocet] Allergy (Intermediate, Verified 12/04/19 07:55) Hives Pt. stated " Immediatly after taking it I felt like I was coming out of my skin." ampicillin Allergy (Mild, Verified 12/04/19 07:55) Hives hives erythromycin base [Erythromycin Base] Allergy (Mild, Verified 12/04/19 07:55) Hives Hives duloxetine HCl [From Cymbalta] Allergy (Unknown, Verified 12/04/19 07:55) Tightness of Throat nystatin Adverse Reaction (Verified 12/04/19 07:55) swellling swelling in lips. moprhin Adverse Reaction (Severe, Uncoded 12/04/19 07:55) Swelling upper and lower lip swelling. hives. Hospital Summary - Hospital Course Hospital Course: 54 yr old female was direct admitted to hospital for routine management on chronic pancreatitis flare. Patient was started on her normal routine for flare which includes IV fluids LR, diuladid, zofran, benadryl and clear liquid diet. Patient reports that she was starting to feel better after receiving her routine treatment however when she transitioned to regular diet she started having more abdominal pain. Her initial amylase was elevated but repeat had trended down. Initial lipase was elevated and repeat trended up. Patient agreed to stay overnight but wanted to be discharged early in am if possible. Patient was evaluated in am and still was having some mild abdominal pain. Her am repeat lipase again had trended up. Patient started with more clear liquid type diet and this afternoon her repeat lipase had trended down. Patient was feeling better and was anxious to go home. She will go home and start with her routine at infusion center. Patient was noted to have a UTI. Possible contaminant as it was collect from [facility] but was started on antibiotics for 3 days. - Vitals & Intake/Output Vital Signs: Vital Signs Temperature 98.7 F 12/08/19 15:00 Pulse Rate 78 12/08/19 15:00 Respiratory Rate 18 12/08/19 16:00 Blood Pressure 123/59 12/08/19 15:00 O2 Sat by Pulse Oximetry 96 12/08/19 15:00 Intake & Output: Intake & Output 12/06/19 12/07/19 12/08/19 12/09/19 11:59 11:59 11:59 11:59 Intake Total 20095 Output Total 5 3300 900 Balance -790 1176 855 Weight 67.1 kg - Lab Result Diagrams: 12/08/19 04:20 12/08/19 04:20 Lab Results-Last 24 Hrs: Lab Results-Last 24 Hours 12/08/19 12/08/19 12/08/19 Range/Units 04: 04:20 16:00 WBC 4.6 (4.0-10.5) K/mm3 RBC 3.43 L (4.1-5.4) M/mm3 Hgb 10.1 L (12.0-16.0) gm/dl Hct 32.4 L (35-47) % MCV 94.5 (78-100) fl MCH 29.4 (26-32) pg MCHC 31.2 L (32-36) g/dl RDW 14.1 H (11.5-14.0) % Plt Count 268 (150-450) K/mm3 MPV 9.8 (7.5-11.0) fl Sodium 138 (137-145) mmol/L Potassium 4.3 (3.5-5.1) mmol/L Chloride 103 (98-107) mmol/L Carbon Dioxide 28 (22-30) mmol/L Anion Gap 10.8 (5-15) MEQ/L BUN 15 (7-17) mg/dL Creatinine 0.98 (0.52-1.04) mg/dL Estimated GFR > 60.0 ML/MIN Glucose 84 (74-106) mg/dL Calcium 8.3 L (8.4-10.2) mg/dL Magnesium 1.6 (1.6-2.3) mg/dL Total Bilirubin 0.30 (0.2-1.3) mg/dL AST 28 (14-36) U/L ALT 37 H (0-35) U/L Alkaline Phosphatase 96 (38-126) U/L Serum Total Protein 6.1 L (6.3-8.2) g/dL Albumin 3.3 L (3.5-5.0) g/dL Amylase 103 (30-110) U/L Lipase 379 H 264 (23-300) U/L Discharge Exam General Appearance: no apparent distress Neurologic Exam: alert, oriented x 3, cooperative, normal mood/affect Eye Exam: eyes nml inspection Ears, Nose, Throat Exam: moist mucous membranes Neck Exam: normal inspection Respiratory Exam: normal breath sounds, other (Mild wheeze appreciated R side), No chest tenderness, No lungs clear, No respiratory distress Cardiovascular Exam: regular rate/rhythm, normal heart sounds, No murmur, No friction rub, No gallop, No tachycardia Gastrointestinal/Abdomen Exam: soft, normal bowel sounds, other (ileostomy bag present and left upper quadrant tenderness) Pelvic Exam: deferred Rectal Exam: deferred Back Exam: normal inspection Extremity Exam: normal inspection Skin Exam: normal color, warm, dry, No rash Final Diagnosis/Problem List - Final Discharge Diagnosis/Problem (1) Acute on chronic pancreatitis Current Visit: No Status: Acute Assessment & Plan: Patient was started on her routine regimen for pancreatitis including LR, pain medication and antinausea medication. She was started on clear liquid diet and progressed to regular diet. Patient had repeat labs that showed lipase initially trending and then trending down. Patient was feeling well enough to go home and will resume her infusion treatments. Code(s): K85.90 - ACUTE PANCREATITIS WITHOUT NECROSIS OR INFECTION, UNSP; K86.1 - OTHER CHRONIC PANCREATITIS (2) UTI (urinary tract infection) Current Visit: No Status: Acute Onset Date: ~07/17/18 Assessment & Plan: Unsure if true UTI as it was collected from [facility] cath but treated with nitrofurantoin Code(s): N39.0 - URINARY TRACT INFECTION, SITE NOT SPECIFIED (3) Chronic abdominal pain Current Visit: No Status: Chronic Assessment & Plan: same plan as for pancreatitis Code(s): R10.9 - UNSPECIFIED ABDOMINAL PAIN; G89.29 - OTHER CHRONIC PAIN (4) Ileostomy in place Current Visit: No Status: Chronic Code(s): Z93.2 - ILEOSTOMY STATUS - Discharge Disposition: Home, Self-Care Condition: Stable Prescriptions: New Nitrofurantoin Macro 100 mg [Macrobid 100MG Capsule] 100 mg PO BIDWM 3 Days #6 capsule Continue Pregabalin [Lyrica] 100 mg PO BID Heparin Flush 500 units/5 ml [Heparin Lock Flush 100 Units/ml 5ml Syringe ] 500 units PORT FLUSH PRN PRN disp.syrin PRN Reason: Iv Port Flush Buspirone HCl 5 mg [Buspar 5 mg] 15 mg PO TID Sertraline HCl [Zoloft] 100 mg PO HS Hydrocodone/APAP 10/325 mg [Lima 10/325 MG Tablet] 1 tab PO QID PRN PRN tablet PRN Reason: Pain ondansetron HCL [Ondansetron HCl] 4 mg PO Q4H PRN PRN #30 tablet PRN Reason: Nausea Follow up with: JOSE ZAMORANO [Primary Care Provider] - 12/14/19 1:15 pm
== END 2019-12-08 18:05 | disposition home or self-care (01) | DRG 439 ==
LOC: MED SURG 13:17 → OBSVTOIN 12-07 13:38
PROVIDERS: ADMIT Family Medicine; ATTEND Family Medicine
DX: K85.90 Acute pancreatitis without necrosis or infection, unspecified (principal); N39.0 Urinary tract infection, site not specified; K91.2 Postsurgical malabsorption, not elsewhere classified; K86.1 Other chronic pancreatitis; E83.42 Hypomagnesemia; N18.9 Chronic kidney disease, unspecified; E87.6 Hypokalemia; R10.9 Unspecified abdominal pain; G89.29 Other chronic pain; Z93.2 Ileostomy status; Z79.899 Other long term (current) drug therapy
CPT/HCPCS: 36415; 80053; 82150; 83690; 83735; 85027; 93268; 94762; J1170; J1200; J2405; J2550; A9270-GY; G0378

== ENCOUNTER 2019-12-20 08:31 | Inpatient (IN) | payer MEDICARE ==
[2019-12-20] MEDS ORDERED: DILAUDID 1 MG/1ML PCA IV PRN (09:27)
[2019-12-20] MEDS ORDERED: DILAUDID 2 MG INJECTION IV ONE ×2 (09:30→20:30)
[2019-12-20] MEDS: Lactated Ringers 1,000 ML IV SCH ×2 (09:51→22:18)
[2019-12-20] MEDS ORDERED: PHARMACY DOSING REQUIRED: GENTAMICIN IV ONE (10:32)
--- NOTE | 2019-12-20 10:47 | PCM.HP ---
History of Present Illness - Chief Complaint Chief Complaint: acute pain; pancreatitus; UTI History of Present Illness: is a 54 year old female pt of mine from [facility] with PMHx Crohn's disease with colectomy and ileostomy with shortgut syndrome, neurogenic bladder with suprapubic catheter, chronic renal failure, and chronic pancreatitis who is being admitted for acute pancreatitis and UTI. She has been having increased LLQ pain and vaginal pain for 1 week (vaginal pain started after having her suprapubic catheter changed last week). Started vomiting at home. She came in to infusion this morning and was found to have lipase of 532, amylase of 157, WBC 8.4, K+ 3.9, Mg 1.7, AST/ALT 56/57. - Review of Systems Constitutional: Fatigue Abdominal/Gastrointestinal: Abdominal Pain, Nausea, Vomiting Genitourinary Symptoms: Other (vaginal pain) All Other Systems: Reviewed and Negative Medications & Allergies Home Medications: Home Medication List Pregabalin [Lyrica] 100 mg PO BID 12/24/16 [History Confirmed 12/06/19] Heparin Flush 500 units/5 ml [Heparin Lock Flush 100 Units/ml 5ml Syringe] 500 units PORT FLUSH PRN PRN disp.syrin 08/10/17 [Rx Confirmed 12/06/19] Buspirone HCl 5 mg [Buspar 5 mg] 15 mg PO TID 01/09/18 [History Confirmed 12/06/19] Sertraline HCl [Zoloft] 100 mg PO HS 11/06/18 [History Confirmed 12/06/19] Hydrocodone/APAP 10/325 mg [Livingston 10/325 MG Tablet] 1 tab PO QID PRN PRN tablet 07/25/19 [Rx Confirmed 12/06/19] ondansetron HCL [Ondansetron HCl] 4 mg PO Q4H PRN PRN #30 tablet 09/06/19 [Rx Confirmed 12/06/19] Nitrofurantoin Macro 100 mg [Macrobid 100MG Capsule] 100 mg PO BIDWM 3 Days #6 capsule 12/08/19 [Rx] Allergies/Adverse Reactions: Allergies Allergy/AdvReac Type Severity Reaction Status Date / Time oxybutynin Allergy Severe Swelling Verified 12/04/19 07:55 oxycodone [From Percocet] Allergy Intermediate Hives Verified 12/04/19 07:55 ampicillin Allergy Mild Hives Verified 12/04/19 07:55 erythromycin base Allergy Mild Hives Verified 12/04/19 07:55 [Erythromycin Base] duloxetine HCl Allergy Unknown Tightness Verified 12/04/19 07:55 [From Cymbalta] of Throat nystatin AdvReac swellling Verified 12/04/19 07:55 moprhin AdvReac Severe Swelling Uncoded 12/04/19 07:55 - Past Medical History Past Medical History: Yes Neurological History: Peripheral Neuropathy ENT History: No Pertinent History Cardiac History: No Pertinent History Respiratory History: No Pertinent History Endocrine Medical History: Adrenal Insufficiency, Other Musculoskelatal History: Osteoarthritis GI Medical History: Crohns Disease, Pancreatitis, Other History: Renal Disease, Other Pyscho-Social History: Anxiety, Depression Reproductive Disorders: Other Comment: Pt had surgery for adhesions in the gut and had complications. She has a colostomy and superpubic cather. Pt gets infusions with potassium and magnesium, chronic pancreatitis. - Female History Are you now?: No - Past Surgical History Past Surgical History: Yes (ileostomy, suprapubic catheter) Neuro Surgical History: No Pertinent History Cardiac History: No Pertinent History Respiratory Surgery: No Pertinent History GI Surgical History: Bowel Surgery, Cholecystectomy Genitourinary Surgical Hx: Other Musculskeletal Surgical Hx: No Pertinent History Female Surgical History: Hysterectomy Other Surgical History: has 120 cm of small bowel, urostomy following compications after surgery to remove adhesions. PROCEDURE 09/07/19 TO DEADEN NERVES OF PANCREASE - Social History Smoking Status: Current every day smoker How long have you smoked: 20 years Exposure to second hand smoke: Yes Alcohol: None Drug Use: none - Physical Exam Vital Signs: Vital Signs - 24 hr Temp Pulse Resp BP Pulse Ox 12/20/19 09:52 97 12/20/19 09:34 98.5 F 88 18 95 12/20/19 09:19 98.5 F 88 18 122/83 95 12/20/19 09:15 98.5 F 88 18 122/83 95 General Appearance: moderate distress, alert (sleeping initially but wakes to voice) Neurologic Exam: oriented x 3, cooperative Eye Exam: eyes nml inspection Ears, Nose, Throat Exam: moist mucous membranes Neck Exam: normal inspection Respiratory Exam: normal breath sounds, lungs clear, No respiratory distress, No crackles/rales, No rhonchi, No wheezing Cardiovascular Exam: regular rate/rhythm, normal heart sounds, No murmur Gastrointestinal/Abdomen Exam: soft, tenderness (LLQ, marked), guarding, No normal bowel sounds (hypoactive but present), No distention, No mass, No rebound Extremity Exam: normal inspection, No pedal edema, No swelling Skin Exam: normal color, warm, dry, No rash Results - Radiology Impressions Radiology Exams & Impressions: Radiology Procedures Category Date Time Status ABDOMEN 2 VIEW Urgent Exams 12/20/19 10:50 Ordered Assessment/Plan (1) Acute on chronic pancreatitis Current Visit: No Status: Acute Assessment & Plan: Will replete her fluids slowly, start at 80cc LR/hr. Check enzymes every morning. Code(s): K85.90 - ACUTE PANCREATITIS WITHOUT NECROSIS OR INFECTION, UNSP; K86.1 - OTHER CHRONIC PANCREATITIS (2) UTI (urinary tract infection) Current Visit: No Status: Acute Onset Date: ~07/17/18 Qualifiers: Urinary tract infection type: acute cystitis Hematuria presence: without hematuria Qualified Code(s): N30.00 - Acute cystitis without hematuria Assessment & Plan: Her urine culture is already done from last week; shows S. epidermis, but with > 100,000 CFUs and sx will go ahead and treat. Is resistant to levaquin. Give gentamycin here, then may be able to send her home on bactrim DS. Code(s): N39.0 - URINARY TRACT INFECTION, SITE NOT SPECIFIED (3) Chronic kidney disease (CKD) stage G3a/A1, moderately decreased glomerular filtration rate (GFR) between 45-59 mL/min/1.73 square meter and albuminuria creatinine ratio less than 30 mg/g Current Visit: No Status: Chronic Code(s): N18.3 - CHRONIC KIDNEY DISEASE, STAGE 3 (MODERATE) (4) Crohn's disease Current Visit: No Status: Chronic Qualifiers: Gastrointestinal tract location: unspecified location Digestive disease complication type: other complication Qualified Code(s): K50.918 - Crohn's disease, unspecified, with other complication Code(s): K50.90 - CROHN'S DISEASE, UNSPECIFIED, WITHOUT COMPLICATIONS (5) Elevated LFTs Current Visit: No Status: Chronic Code(s): R94.5 - ABNORMAL RESULTS OF LIVER FUNCTION STUDIES (6) Ileostomy in place Current Visit: No Status: Chronic Code(s): Z93.2 - ILEOSTOMY STATUS (7) Short bowel syndrome Current Visit: No Status: Chronic Assessment & Plan: Mg and K+ currently ok Code(s): K91.2 - POSTSURGICAL MALABSORPTION, NOT ELSEWHERE CLASSIFIED (8) Suprapubic catheter Current Visit: No Status: Chronic Code(s): Z93.59 - OTHER CYSTOSTOMY STATUS
[2019-12-20] MEDS: Zofran 4 MG/2 ML VIAL IV PRN ×2 (12:06→21:17)
[2019-12-20] MEDS: GENTAMICIN 80 MG/50 ML PREMIX*** 80 MG/50 ML ML IV SCH ×2 (12:25→21:12)
--- NOTE | 2019-12-20 12:28 | XRAY ---
Indication: Abdomen pain. Comparison: February 27, 2018. 2 view abdomen again nonacute and nonobstructed with cholecystectomy clips, right lower quadrant ostomy, and suprapubic catheter. Solid organs and osseous structures are unremarkable. No free air. Osseous structures intact again with minimal scoliosis. Lung bases clear. Impression: Nonacute nonobstructed abdomen with chronic features.
[2019-12-20] MEDS: BUSPAR 5 MG PO SCH ×2 (15:05→21:12)
[2019-12-20] MEDS: BENADRYL 25 MG CAPSULE PO PRN ×2 (15:24→21:26)
[2019-12-20] MEDS: Phenergan 25 MG INJ IV PRN (18:38)
[2019-12-20] MEDS: Cyclobenzaprine 10 MG PO PRN (20:24)
[2019-12-20] MEDS: LYRICA 100MG PO SCH (21:12)
[2019-12-20] MEDS: ZOLOFT 50 MG TABLET PO SCH (21:12)
[2019-12-20] MEDS ORDERED: LYRICA 75 MG CAP PO SCH (22:00)
[2019-12-20] MEDS ORDERED: NON-FORMULARY ITEM (Sertraline Hcl [Zoloft] 100 MG) PO SCH (22:00)
--- NOTE | 2019-12-20 22:07 | PCM.BN ---
Brief Admission Note - Admission Note Brief Admisson Note: Patient admitted @ 12/20/19 09:15 to [facility]. Medication List reviewed and reconciled.Patient was a direct admit from Dr Haji's office with pancreatitis flare up and UTI. Admitted for IV fluids and pain control .
[2019-12-21] MEDS: BENADRYL 25 MG CAPSULE PO PRN ×3 (03:43→16:45)
[2019-12-21] MEDS: Phenergan 25 MG INJ IV PRN ×3 (03:43→16:46)
[2019-12-21] MEDS: Cyclobenzaprine 10 MG PO PRN ×3 (04:39→20:13)
[2019-12-21 04:45] LABS: Hemoglobin 11.5 gm/dl (12.0-16.0); Mean Cell Volume 91.8 fl (78-100); Mean Corpuscular Hemoglobin 29.3 pg (26-32); Mean Corpuscular Hgb Concent. 31.9 g/dl (32-36); Mean Platelet Volume 9.6 fl (7.5-11.0); Platelet Count 271 K/mm3 (150-450); Red Blood Count 3.92 M/mm3 (4.1-5.4); Red Cell Distribution Width 14.2 % (11.5-14.0); White Blood Count 6.1 K/mm3 (4.0-10.5)
[2019-12-21 04:57] LABS: ALKALINE PHOSPHATASE 125 U/L (38-126); AMYLASE 124 U/L (30-110); ANION GAP 12.8 MEQ/L (5-15); BLOOD UREA NITROGEN 15 mg/dL (7-17); CHLORIDE 101 mmol/L (98-107); Calcium 8.8 mg/dL (8.4-10.2); Carbon Dioxide 26 mmol/L (22-30); Creatinine 1 0.93 mg/dL (0.52-1.04); Glucose 92 mg/dL (74-106); LIPASE 451 U/L (23-300); MAGNESIUM 1.7 mg/dL (1.6-2.3); Potassium 4.6 mmol/L (3.5-5.1); SGOT/AST 46 U/L (14-36); SGPT/ALT 50 U/L (0-35); SODIUM 136 mmol/L (137-145); Total Protein 7.1 g/dL (6.3-8.2)
[2019-12-21] MEDS: Zofran 4 MG/2 ML VIAL IV PRN ×2 (07:35→21:28)
[2019-12-21] MEDS: LYRICA 100MG PO SCH ×2 (09:17→21:27)
[2019-12-21] MEDS: GENTAMICIN 80 MG/50 ML PREMIX*** 80 MG/50 ML ML IV SCH ×2 (09:17→21:33)
[2019-12-21] MEDS: BUSPAR 5 MG PO SCH ×3 (09:17→21:27)
[2019-12-21] MEDS ORDERED: DILAUDID 2 MG INJECTION IV ONE (09:20)
[2019-12-21] MEDS: Lactated Ringers 1,000 ML IV SCH (12:05)
[2019-12-21] MEDS: VENTOLIN COMMON CANISTER IH SCH (19:12)
[2019-12-21] MEDS ORDERED: Norco 10/325 MG Tablet PO ONE (21:16)
[2019-12-21] MEDS: ZOLOFT 50 MG TABLET PO SCH (21:27)
[2019-12-21] MEDS ORDERED: TROUGH DRUG LEVELS IJ ONE (21:30)
--- NOTE | 2019-12-21 22:29 | PCM.NOTE ---
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 Pain is in left mid low abdomen She has tolerated a clear liquid diet and is ready to try mashed potatoes or soup. Objective Exam General Appearance: mild distress Neurologic Exam: alert, oriented x 3, cooperative, other (decreased affect) Skin Exam: warm, dry, pale Respiratory Exam: normal breath sounds, lungs clear Cardiovascular Exam: regular rate/rhythm Gastrointestinal/Abdomen Exam: soft, tenderness (LLQ,left flank) Extremity Exam: other (no pitting edema) Pelvic Exam: adnexal tenderness (no CVA tenderness) OBJECTIVE DATA Vital Signs: Vital Signs - 24 hr Temp Pulse Resp BP BP Pulse Ox 12/21/19 20:00 97.9 F 85 18 122/62 97 12/21/19 19:12 80 19 97 12/21/19 16:00 98.5 F 97 H 16 104/62 98 12/21/19 12:00 98.2 F 82 20 107/62 97 12/21/19 08:00 98.2 F 78 16 112/65 97 12/21/19 06:30 98 12/21/19 04:00 98.3 F 91 H 14 101/57 98 12/21/19 00:00 95 12/20/19 23:47 98.0 F 83 18 113/70 104/66 95 Oxygen-Last 24 hours Oxygen Flowrate (L/min)-RT 2 Pain Assessment - Last Documented Pain Intensity 8 Pain Scale Used 0-10 Pain Scale Intake and Output: Intake & Output 12/19/19 12/20/19 12/21/19 12/22/19 11:59 11:59 11:59 11:59 Intake Total 2965 1080 Output Total 3500 950 Balance -535 130 Weight 56 kg Lab Results: Lab Results-Last 24 Hours 12/21/19 12/21/19 Range/Units 04:30 04:30 WBC 6.1 (4.0-10.5) K/mm3 RBC 3.92 L (4.1-5.4) M/mm3 Hgb 11.5 L (12.0-16.0) gm/dl Hct 36.0 (35-47) % MCV 91.8 (78-100) fl MCH 29.3 (26-32) pg MCHC 31.9 L (32-36) g/dl RDW 14.2 H (11.5-14.0) % Plt Count 271 (150-450) K/mm3 MPV 9.6 (7.5-11.0) fl Sodium 136 L (137-145) mmol/L Potassium 4.6 (3.5-5.1) mmol/L Chloride 101 (98-107) mmol/L Carbon Dioxide 26 (22-30) mmol/L Anion Gap 12.8 (5-15) MEQ/L BUN 15 (7-17) mg/dL Creatinine 0.93 (0.52-1.04) mg/dL Estimated GFR > 60.0 ML/MIN Glucose 92 (74-106) mg/dL Calcium 8.8 (8.4-10.2) mg/dL Magnesium 1.7 (1.6-2.3) mg/dL Total Bilirubin 0.40 (0.2-1.3) mg/dL AST 46 H (14-36) U/L ALT 50 H (0-35) U/L Alkaline Phosphatase 125 (38-126) U/L Serum Total Protein 7.1 (6.3-8.2) g/dL Albumin 4.0 (3.5-5.0) g/dL Amylase 124 H (30-110) U/L Lipase 451 H (23-300) U/L Radiology Exams: Radiology Procedures Category Date Time Status ABDOMEN 2 VIEW Urgent Exams 12/20/19 10:50 Completed Assessment/Plan (1) Abdominal pain Status: Acute Onset Date: ~07/17/18 Qualifiers: Abdominal location: unspecified location Qualified Code(s): R10.9 - Unspecified abdominal pain Assessment & Plan: pancreatitis,resolving UTI Code(s): R10.9 - UNSPECIFIED ABDOMINAL PAIN (2) Acute on chronic pancreatitis Status: Acute Assessment & Plan: improving slowly Code(s): K85.90 - ACUTE PANCREATITIS WITHOUT NECROSIS OR INFECTION, UNSP; K86.1 - OTHER CHRONIC PANCREATITIS (3) UTI (urinary tract infection) due to urinary indwelling catheter Status: Resolved Qualifiers: Encounter type: subsequent encounter Assessment & Plan: culture no growth,has been on IV meds priot to adm (Gentamycin) Code(s): T83.511A - I/I REACT D/T INDWELLING URETHRAL CATHETER, INIT; N39.0 - URINARY TRACT INFECTION, SITE NOT SPECIFIED
[2019-12-22] MEDS: Lactated Ringers 1,000 ML IV SCH ×2 (01:02→14:05)
[2019-12-22 02:23] LABS: Appearance CLEAR (CLEAR); Bacteria RARE /HPF (NEGATIVE); Bilirubin NEGATIVE (NEGATIVE); Blood SMALL Ery/ul (0-5); Glucose NEGATIVE (NEGATIVE); Ketones NEGATIVE (NEGATIVE); Leukocyte Esterase SMALL (NEGATIVE); Nitrite NEGATIVE (NEGATIVE); Protein,Urine Dip NEGATIVE (Negative); Specific Gravity 1.008 (1.005-1.025); Urobilinogen NEGATIVE mg/dL (0-1)
[2019-12-22] MEDS: Phenergan 25 MG INJ IV PRN ×4 (04:15→22:29)
[2019-12-22] MEDS: BENADRYL 25 MG CAPSULE PO PRN (04:15)
[2019-12-22 05:34] LABS: Hemoglobin 10.4 gm/dl (12.0-16.0); Mean Corpuscular Hemoglobin 29.3 pg (26-32); Mean Corpuscular Hgb Concent. 31.5 g/dl (32-36); Mean Platelet Volume 9.8 fl (7.5-11.0); Platelet Count 294 K/mm3 (150-450); Red Blood Count 3.55 M/mm3 (4.1-5.4); Red Cell Distribution Width 14.1 % (11.5-14.0); White Blood Count 5.2 K/mm3 (4.0-10.5)
[2019-12-22 06:03] LABS: ALBUMIN 3.8 g/dL (3.5-5.0); ALKALINE PHOSPHATASE 112 U/L (38-126); AMYLASE 125 U/L (30-110); ANION GAP 15.1 MEQ/L (5-15); BLOOD UREA NITROGEN 11 mg/dL (7-17); CHLORIDE 101 mmol/L (98-107); Calcium 8.5 mg/dL (8.4-10.2); Carbon Dioxide 26 mmol/L (22-30); Creatinine 1 0.89 mg/dL (0.52-1.04); Glucose 87 mg/dL (74-106); LIPASE 326 U/L (23-300); MAGNESIUM 1.6 mg/dL (1.6-2.3); Potassium 4.8 mmol/L (3.5-5.1); SGOT/AST 33 U/L (14-36); SGPT/ALT 41 U/L (0-35); SODIUM 137 mmol/L (137-145); Total Protein 6.8 g/dL (6.3-8.2)
[2019-12-22] MEDS: VENTOLIN COMMON CANISTER IH SCH ×4 (07:24→19:07)
[2019-12-22] MEDS: Cyclobenzaprine 10 MG PO PRN ×3 (08:06→22:36)
[2019-12-22] MEDS: LYRICA 100MG PO SCH ×2 (09:07→22:00)
[2019-12-22] MEDS: GENTAMICIN 80 MG/50 ML PREMIX*** 80 MG/50 ML ML IV SCH ×2 (09:08→22:41)
[2019-12-22] MEDS: BUSPAR 5 MG PO SCH ×3 (09:08→22:00)
[2019-12-22] MEDS: Zofran 4 MG/2 ML VIAL IV PRN ×2 (10:39→18:08)
--- NOTE | 2019-12-22 18:32 | PCM.NOTE ---
Date and Time: 12/22/191830 Subjective Assessment: Patient was feeling better and tried to advance diet but has been nauseated and feeling poorly. She did eat mashed potatoes and green beans. Continues to have left sided pain.Her pancreatic enzymes are improving. Repeat urine cultue is panding,Dr Haji started her on Gentamycin-levels followed by pharmacy. Objective Exam General Appearance: mild distress, lethargy Neurologic Exam: oriented x 3, cooperative, normal mood/affect Skin Exam: normal color (since yesterday), warm, dry Respiratory Exam: wheezing (txfine eew,is getting albuterol) Cardiovascular Exam: regular rate/rhythm Gastrointestinal/Abdomen Exam: tenderness (Left mid /flank and LLQ), distention , guarding Extremity Exam: normal inspection Back Exam: other ( no CVA tenderness) OBJECTIVE DATA Vital Signs: Vital Signs - 24 hr Temp Pulse Resp BP Pulse Ox 12/22/19 16:00 98.1 F 74 18 116/65 98 12/22/19 15:36 98 12/22/19 14:45 86 20 98 12/22/19 11:38 98.2 F 96 H 18 103/55 98 12/22/19 11:36 98 12/22/19 10:58 94 H 21 96 12/22/19 08:00 98.5 F 90 18 105/64 97 12/22/19 07:28 82 20 96 12/22/19 04:00 98.5 F 76 12 107/58 98 12/22/19 00:00 98.5 F 79 16 100/56 97 12/21/19 20:00 97.9 F 85 18 122/62 98 12/21/19 19:12 80 19 97 Oxygen-Last 24 hours Oxygen Flowrate (L/min)-RT 2 Oxygen Flowrate (L/min)-RT 2 Pain Assessment - Last Documented Pain Intensity 5 Pain Scale Used 0-10 Pain Scale Intake and Output: Intake & Output 12/20/19 12/21/19 12/22/19 12/23/19 11:59 11:59 11:59 11:59 Intake Total 2965 2843 2340 Output Total 3500 4100 1800 Balance -535 -1257 540 Weight 56 kg Lab Results: Lab Results-Last 24 Hours 12/21/19 12/21/19 12/21/19 Range/Units 00:23 21:35 23:36 WBC (4.0-10.5) K/mm3 RBC (4.1-5.4) M/mm3 Hgb (12.0-16.0) gm/dl Hct (35-47) % MCV (78-100) fl MCH (26-32) pg MCHC (32-36) g/dl RDW (11.5-14.0) % Plt Count (150-450) K/mm3 MPV (7.5-11.0) fl Sodium (137-145) mmol/L Potassium (3.5-5.1) mmol/L Chloride (98-107) mmol/L Carbon Dioxide (22-30) mmol/L Anion Gap (5-15) MEQ/L BUN (7-17) mg/dL Creatinine (0.52-1.04) mg/dL Estimated GFR ML/MIN Glucose (74-106) mg/dL Calcium (8.4-10.2) mg/dL Magnesium (1.6-2.3) mg/dL Total Bilirubin (0.2-1.3) mg/dL AST (14-36) U/L ALT (0-35) U/L Alkaline Phosphatase (38-126) U/L Serum Total Protein (6.3-8.2) g/dL Albumin (3.5-5.0) g/dL Amylase (30-110) U/L Lipase (23-300) U/L Urine Color YELLOW (YELLOW) Urine Appearance CLEAR (CLEAR) Urine pH 7.0 (5-6) Ur Specific Hopkins 1.008 (1.005-1.025) Urine Protein NEGATIVE (Negative) Urine Ketones NEGATIVE (NEGATIVE) Urine Blood SMALL (0-5) Gregg/ul Urine Nitrite NEGATIVE (NEGATIVE) Urine Bilirubin NEGATIVE (NEGATIVE) Urine Urobilinogen NEGATIVE (0-1) mg/dL Ur Leukocyte Esterase SMALL (NEGATIVE) Urine WBC (Auto) 6-10 (0-5) /HPF Urine RBC (Auto) NONE (0-2) /HPF U Epithel Cells (Auto) NONE (FEW) /HPF Urine Bacteria (Auto) RARE (NEGATIVE) /HPF Urine Culture Reflexed ORDERED SEPARATELY (NO) Urine Glucose NEGATIVE (NEGATIVE) mg/dL Gentamicin Peak 6.85 (5.0-12.0) ug/mL Gentamicin Trough 1.09 (0.6-2.0) ug/mL 12/22/19 12/22/19 Range/Units 04:45 04:45 WBC 5.2 (4.0-10.5) K/mm3 RBC 3.55 L (4.1-5.4) M/mm3 Hgb 10.4 L (12.0-16.0) gm/dl Hct 33.0 L (35-47) % MCV 93.0 (78-100) fl MCH 29.3 (26-32) pg MCHC 31.5 L (32-36) g/dl RDW 14.1 H (11.5-14.0) % Plt Count 294 (150-450) K/mm3 MPV 9.8 (7.5-11.0) fl Sodium 137 (137-145) mmol/L Potassium 4.8 (3.5-5.1) mmol/L Chloride 101 (98-107) mmol/L Carbon Dioxide 26 (22-30) mmol/L Anion Gap 15.1 H (5-15) MEQ/L BUN 11 (7-17) mg/dL Creatinine 0.89 (0.52-1.04) mg/dL Estimated GFR > 60.0 ML/MIN Glucose 87 (74-106) mg/dL Calcium 8.5 (8.4-10.2) mg/dL Magnesium 1.6 (1.6-2.3) mg/dL Total Bilirubin 0.40 (0.2-1.3) mg/dL AST 33 (14-36) U/L ALT 41 H (0-35) U/L Alkaline Phosphatase 112 (38-126) U/L Serum Total Protein 6.8 (6.3-8.2) g/dL Albumin 3.8 (3.5-5.0) g/dL Amylase 125 H (30-110) U/L Lipase 326 H (23-300) U/L Urine Color (YELLOW) Urine Appearance (CLEAR) Urine pH (5-6) Ur Specific Hopkins (1.005-1.025) Urine Protein (Negative) Urine Ketones (NEGATIVE) Urine Blood (0-5) Gregg/ul Urine Nitrite (NEGATIVE) Urine Bilirubin (NEGATIVE) Urine Urobilinogen (0-1) mg/dL Ur Leukocyte Esterase (NEGATIVE) Urine WBC (Auto) (0-5) /HPF Urine RBC (Auto) (0-2) /HPF U Epithel Cells (Auto) (FEW) /HPF Urine Bacteria (Auto) (NEGATIVE) /HPF Urine Culture Reflexed (NO) Urine Glucose (NEGATIVE) mg/dL Gentamicin Peak (5.0-12.0) ug/mL Gentamicin Trough (0.6-2.0) ug/mL Multi-Disciplinary Progress Notes: Multi-Disciplinary Progress Notes 12/22/19 10:01 Case Management Note by Mirela Rose PATIENT INDEPENDENT AT HOME, PLANS TO DC HOME AT TIME OF DISCHARGE, NO NEW NEEDS IDENTIFIED AT THIS TIME Initialized on 12/22/19 10:01 - END OF NOTE Assessment/Plan (1) Acute on chronic pancreatitis Current Visit: No Status: Acute Assessment & Plan: improving slowly Code(s): K85.90 - ACUTE PANCREATITIS WITHOUT NECROSIS OR INFECTION, UNSP; K86.1 - OTHER CHRONIC PANCREATITIS (2) UTI (urinary tract infection) Current Visit: No Status: Acute Onset Date: ~07/17/18 Qualifiers: Urinary tract infection type: acute cystitis Hematuria presence: without hematuria Qualified Code(s): N30.00 - Acute cystitis without hematuria Assessment & Plan: await culture Code(s): N39.0 - URINARY TRACT INFECTION, SITE NOT SPECIFIED (3) Abdominal pain Current Visit: Yes Status: Acute Onset Date: ~07/17/18 Qualifiers: Abdominal location: unspecified location Qualified Code(s): R10.9 - Unspecified abdominal pain Assessment & Plan: acute and chronic left sided abdominal pain requirig repeated hospitalizations for pain control Code(s): R10.9 - UNSPECIFIED ABDOMINAL PAIN
[2019-12-22] MEDS: ZOLOFT 50 MG TABLET PO SCH (22:00)
[2019-12-23] MEDS: Lactated Ringers 1,000 ML IV SCH (03:18)
[2019-12-23 05:22] LABS: Hematocrit 31.9 % (35-47); Hemoglobin 10.1 gm/dl (12.0-16.0); Mean Cell Volume 92.7 fl (78-100); Mean Corpuscular Hemoglobin 29.4 pg (26-32); Mean Corpuscular Hgb Concent. 31.7 g/dl (32-36); Mean Platelet Volume 9.3 fl (7.5-11.0); Platelet Count 298 K/mm3 (150-450); Red Blood Count 3.44 M/mm3 (4.1-5.4); Red Cell Distribution Width 14.3 % (11.5-14.0); White Blood Count 5.1 K/mm3 (4.0-10.5)
[2019-12-23 05:54] LABS: ALBUMIN 3.3 g/dL (3.5-5.0); ALKALINE PHOSPHATASE 98 U/L (38-126); AMYLASE 103 U/L (30-110); ANION GAP 10.6 MEQ/L (5-15); BLOOD UREA NITROGEN 7 mg/dL (7-17); CHLORIDE 103 mmol/L (98-107); Calcium 8.2 mg/dL (8.4-10.2); Carbon Dioxide 29 mmol/L (22-30); Creatinine 1 0.84 mg/dL (0.52-1.04); Glucose 88 mg/dL (74-106); LIPASE 294 U/L (23-300); MAGNESIUM 1.3 mg/dL (1.6-2.3); Potassium 3.9 mmol/L (3.5-5.1); SGOT/AST 24 U/L (14-36); SGPT/ALT 29 U/L (0-35); SODIUM 139 mmol/L (137-145); Total Protein 6.2 g/dL (6.3-8.2)
[2019-12-23] MEDS: VENTOLIN COMMON CANISTER IH SCH ×3 (07:33→15:00)
[2019-12-23] MEDS: Phenergan 25 MG INJ IV PRN ×2 (08:11→14:13)
[2019-12-23] MEDS: BUSPAR 5 MG PO SCH ×2 (10:24→14:16)
[2019-12-23] MEDS: GENTAMICIN 80 MG/50 ML PREMIX*** 80 MG/50 ML ML IV SCH (10:25)
[2019-12-23] MEDS: LYRICA 100MG PO SCH (10:25)
[2019-12-23] MEDS ORDERED: POTASSIUM CHLORIDE IV SCH ×6 (11:00)
[2019-12-23] MEDS ORDERED: [UNRECOGNIZED DRUG - OTHER] IV SCH ×6 (11:00)
[2019-12-23] MEDS ORDERED: MAGNESIUM SULFATE IV SCH ×6 (11:00)
[2019-12-23] MEDS: Zofran 4 MG/2 ML VIAL IV PRN (11:07)
--- NOTE | 2019-12-23 16:16 | PCM.DS ---
Discharge Summary Date of Admission: 12/21/19 09:05 Admitting Physician: JOSE ZAMORANO Primary Care Provider: JOSE ZAMORANO Allergies Allergies oxybutynin Allergy (Severe, Verified 01/04/20 08:10) Swelling pharyngeal swelling oxycodone [From Percocet] Allergy (Intermediate, Verified 01/04/20 08:10) Hives Pt. stated " Immediatly after taking it I felt like I was coming out of my skin." ampicillin Allergy (Mild, Verified 01/04/20 08:10) Hives hives erythromycin base [Erythromycin Base] Allergy (Mild, Verified 01/04/20 08:10) Hives Hives duloxetine HCl [From Cymbalta] Allergy (Unknown, Verified 01/04/20 08:10) Tightness of Throat nystatin Adverse Reaction (Verified 01/04/20 08:10) swellling swelling in lips. moprhin Adverse Reaction (Severe, Uncoded 12/20/19 11:09) Swelling upper and lower lip swelling. hives. Hospital Summary - Hospital Course Hospital Course: Patient states she feels close to her baseline. Still having left sided pain from Pancreatitis . Is feeling nauseated even after Zofran but is keeping down starches. - Vitals & Intake/Output Vital Signs: Vital Signs Temperature 98.7 F 12/23/19 12:00 Pulse Rate 93 H 12/23/19 12:00 Respiratory Rate 16 12/23/19 12:00 Blood Pressure 108/58 12/23/19 12:00 O2 Sat by Pulse Oximetry 93 L 12/23/19 15:06 Intake & Output: Intake & Output 12/21/19 12/22/19 12/23/19 12/24/19 11:59 11:59 11:59 11:59 Intake Total 2965 2843 5435 Output Total 3500 4100 4400 600 Balance -535 -1257 1035 -600 - Lab Result Diagrams: 12/23/19 05:10 12/23/19 05:10 Lab Results-Last 24 Hrs: Lab Results-Last 24 Hours 12/23/19 12/23/19 Range/Units 05:10 05:10 WBC 5.1 (4.0-10.5) K/mm3 RBC 3.44 L (4.1-5.4) M/mm3 Hgb 10.1 L (12.0-16.0) gm/dl Hct 31.9 L (35-47) % MCV 92.7 (78-100) fl MCH 29.4 (26-32) pg MCHC 31.7 L (32-36) g/dl RDW 14.3 H (11.5-14.0) % Plt Count 298 (150-450) K/mm3 MPV 9.3 (7.5-11.0) fl Sodium 139 (137-145) mmol/L Potassium 3.9 (3.5-5.1) mmol/L Chloride 103 (98-107) mmol/L Carbon Dioxide 29 (22-30) mmol/L Anion Gap 10.6 (5-15) MEQ/L BUN 7 (7-17) mg/dL Creatinine 0.84 (0.52-1.04) mg/dL Estimated GFR > 60.0 ML/MIN Glucose 88 (74-106) mg/dL Calcium 8.2 L (8.4-10.2) mg/dL Magnesium 1.3 L (1.6-2.3) mg/dL Total Bilirubin 0.30 (0.2-1.3) mg/dL AST 24 (14-36) U/L ALT 29 (0-35) U/L Alkaline Phosphatase 98 (38-126) U/L Serum Total Protein 6.2 L (6.3-8.2) g/dL Albumin 3.3 L (3.5-5.0) g/dL Amylase 103 (30-110) U/L Lipase 294 (23-300) U/L Micro Results-Entire Visit: Microbiology 12/21/19 00:23 Urine Culture - Final Urine, Indwelling Catheter NO GROWTH - Procedures and Test Procedures and Tests throughout Hospitalization: Therapy Orders & Screens 12/20/19 13:03 Oxygen NASAL CANNULA 2 lpm Comment: Diagnosis: acute pain; pancreatitus; UTI 12/21/19 20:46 Respiratory Therapy Assessment DAILY Comment: Diagnosis: acute pain; CHRONIC PANCREATITIS; UTI Discharge Exam General Appearance: no apparent distress Neurologic Exam: alert, oriented x 3, cooperative, normal mood/affect Eye Exam: eyes nml inspection Ears, Nose, Throat Exam: normal ENT inspection Neck Exam: normal inspection Respiratory Exam: normal breath sounds Cardiovascular Exam: regular rate/rhythm, tachycardia, other (regular) Gastrointestinal/Abdomen Exam: distention, rebound (minimal), splenomegaly, other (ostomies colon and suprapubic,minimal left mid lateral tenderness) Pelvic Exam: deferred Rectal Exam: deferred Back Exam: CVA tenderness (no CVA tenderness) Final Diagnosis/Problem List - Final Discharge Diagnosis/Problem (1) Acute on chronic pancreatitis Status: Acute Code(s): K85.90 - ACUTE PANCREATITIS WITHOUT NECROSIS OR INFECTION, UNSP; K86.1 - OTHER CHRONIC PANCREATITIS (2) UTI (urinary tract infection) Status: Resolved Onset Date: ~07/17/18 Code(s): N39.0 - URINARY TRACT INFECTION, SITE NOT SPECIFIED (3) Abdominal pain Status: Acute Onset Date: ~07/17/18 Assessment & Plan: improved Code(s): R10.9 - UNSPECIFIED ABDOMINAL PAIN - Discharge Disposition: Home, Self-Care Condition: Stable Prescriptions: Continue Pregabalin [Lyrica] 100 mg PO BID Heparin Flush 500 units/5 ml [Heparin Lock Flush 100 Units/ml 5ml S yringe] 500 units PORT FLUSH PRN PRN disp.syrin PRN Reason: Iv Port Flush Buspirone HCl 5 mg [Buspar 5 mg] 15 mg PO TID Sertraline HCl [Zoloft] 100 mg PO HS Hydrocodone/APAP 10/325 mg [[place] 10/325 MG Tablet] 1 tab PO QID PRN PRN tablet PRN Reason: Pain ondansetron HCL [Ondansetron HCl] 4 mg PO Q4H PRN PRN #30 tablet PRN Reason: Nausea Follow up with: JOSE ZAMORANO [Primary Care Provider] - 1 Week
[2019-12-23 16:28] VITALS: BP 117/69; PULSE 94; O2SAT 98
== END 2019-12-23 18:14 | disposition home or self-care (01) | DRG 439 ==
LOC: MED SURG 09:05 → OBSVTOIN 12-21 09:05
PROVIDERS: ADMIT Family Medicine; ATTEND Family Medicine
DX: K85.90 Acute pancreatitis without necrosis or infection, unspecified (principal); N39.0 Urinary tract infection, site not specified; K50.90 Crohn's disease, unspecified, without complications; K91.2 Postsurgical malabsorption, not elsewhere classified; K86.1 Other chronic pancreatitis; N18.3 Chronic kidney disease, stage 3 (moderate); R10.9 Unspecified abdominal pain; R94.5 Abnormal results of liver function studies; R53.83 Other fatigue; R10.2 Pelvic and perineal pain; R11.2 Nausea with vomiting, unspecified; Z93.2 Ileostomy status; Z79.899 Other long term (current) drug therapy; Z93.59 Other cystostomy status
CPT/HCPCS: 36415; 74021; 80053; 80170; 81001; 82150; 83690; 83735; 85027; 87086; 93268; 94640; 94762; G0378; 36591; 96374; 99211; J1170; J1580; J1642; J2405; J2550; J3475; J3480; A9270-GY

== ENCOUNTER 2020-01-24 06:22 | Inpatient (IN) | payer MEDICARE ==
[2020-01-24] MEDS ORDERED: DILAUDID 2 MG INJECTION IV PRN (11:50)
[2020-01-24] MEDS ORDERED: Lactated Ringers 500 ML IV SCH (12:00)
[2020-01-24] MEDS: DILAUDID 1 MG/1ML PCA IV PRN ×2 (12:06→18:20)
[2020-01-24 12:07] LABS: ALBUMIN 4.4 g/dL (3.5-5.0); ALKALINE PHOSPHATASE 135 U/L (38-126); AMYLASE 147 U/L (30-110); ANION GAP 16.4 MEQ/L (5-15); BLOOD UREA NITROGEN 13 mg/dL (7-17); CHLORIDE 96 mmol/L (98-107); Calcium 9.2 mg/dL (8.4-10.2); Carbon Dioxide 27 mmol/L (22-30); Creatinine 1 0.94 mg/dL (0.52-1.04); Glucose 89 mg/dL (74-106); LIPASE 496 U/L (23-300); MAGNESIUM 1.8 mg/dL (1.6-2.3); Potassium 3.2 mmol/L (3.5-5.1); SGOT/AST 35 U/L (14-36); SGPT/ALT 40 U/L (0-35); SODIUM 136 mmol/L (137-145); Total Protein 7.7 g/dL (6.3-8.2)
[2020-01-24 12:13] LABS: Hematocrit 37.4 % (35-47); Hemoglobin 12.1 gm/dl (12.0-16.0); Mean Cell Volume 88.4 fl (78-100); Mean Corpuscular Hemoglobin 28.6 pg (26-32); Mean Corpuscular Hgb Concent. 32.4 g/dl (32-36); Mean Platelet Volume 10.2 fl (7.5-11.0); Platelet Count 262 K/mm3 (150-450); Red Blood Count 4.23 M/mm3 (4.1-5.4); Red Cell Distribution Width 14.6 % (11.5-14.0); White Blood Count 6.5 K/mm3 (4.0-10.5)
[2020-01-24] MEDS: Phenergan 25 MG INJ IV PRN ×2 (12:20→19:07)
[2020-01-24] MEDS: Lactated Ringers 1,000 ML IV SCH ×2 (12:52→22:26)
[2020-01-24 13:09] LABS: Appearance CLEAR (CLEAR); Bacteria FEW /HPF (NEGATIVE); Bilirubin NEGATIVE (NEGATIVE); Blood SMALL Ery/ul (0-5); Glucose NEGATIVE (NEGATIVE); Ketones NEGATIVE (NEGATIVE); Leukocyte Esterase MODERATE (NEGATIVE); Mucus SLIGHT /HPF (NEGATIVE); Nitrite NEGATIVE (NEGATIVE); Protein,Urine Dip NEGATIVE (Negative); Specific Gravity 1.012 (1.005-1.025); Urobilinogen NEGATIVE mg/dL (0-1)
[2020-01-24] MEDS ORDERED: Norco 10/325 MG Tablet PO PRN (13:30)
[2020-01-24] MEDS ORDERED: NON-FORMULARY ITEM (Ondansetron Hcl [Ondansetron Hcl] 4 MG) PO PRN (13:30)
[2020-01-24] MEDS ORDERED: ZOFRAN ODT 4 MG PO PRN (13:50)
[2020-01-24] MEDS: LYRICA 100MG PO SCH ×2 (14:22→22:26)
[2020-01-24] MEDS: BUSPAR 5 MG PO SCH ×2 (14:31→22:27)
[2020-01-24] MEDS: Zofran 4 MG/2 ML VIAL IV PRN (15:40)
[2020-01-24] MEDS: BENADRYL 50 MG/ML IV PRN ×2 (15:46→20:07)
--- NOTE | 2020-01-24 21:49 | PCM.HP ---
History of Present Illness - Chief Complaint Chief Complaint: pancreatitis Date: 01/24/20 History of Present Illness: is a 54 year old female. Medications & Allergies Home Medications: Home Medication List Pregabalin [Lyrica] 100 mg PO BID 12/24/16 [History Confirmed 01/24/20] Heparin Flush 500 units/5 ml [Heparin Lock Flush 100 Units/ml 5ml Syringe] 500 units PORT FLUSH PRN PRN disp.syrin 08/10/17 [Rx Confirmed 01/24/20] Buspirone HCl 5 mg [Buspar 5 mg] 15 mg PO TID 01/09/18 [History Confirmed 01/24/20] Sertraline HCl [Zoloft] 100 mg PO HS 11/06/18 [History Confirmed 01/24/20] Hydrocodone/APAP 10/325 mg [[place] 10/325 MG Tablet] 1 tab PO QID PRN PRN tablet 07/25/19 [Rx Confirmed 01/24/20] ondansetron HCL [Ondansetron HCl] 4 mg PO Q4H PRN PRN #30 tablet 09/06/19 [Rx Confirmed 01/24/20] Allergies/Adverse Reactions: Allergies Allergy/AdvReac Type Severity Reaction Status Date / Time oxybutynin Allergy Severe Swelling Verified 01/04/20 08:10 oxycodone [From Percocet] Allergy Intermediate Hives Verified 01/04/20 08:10 ampicillin Allergy Mild Hives Verified 01/04/20 08:10 erythromycin base Allergy Mild Hives Verified 01/04/20 08:10 [Erythromycin Base] duloxetine HCl Allergy Unknown Tightness Verified 01/04/20 08:10 [From Cymbalta] of Throat nystatin AdvReac swellling Verified 01/04/20 08:10 moprhin AdvReac Severe Swelling Uncoded 12/20/19 11:09 - Past Medical History Past Medical History: Yes Neurological History: Peripheral Neuropathy ENT History: No Pertinent History Cardiac History: No Pertinent History Respiratory History: No Pertinent History Endocrine Medical History: Adrenal Insufficiency, Other Musculoskelatal History: Osteoarthritis GI Medical History: Crohns Disease, Pancreatitis, Other History: Renal Disease, Other Pyscho-Social History: Anxiety, Depression Reproductive Disorders: Other Comment: Pt had surgery for adhesions in the gut and had complications. She has a colostomy and superpubic cather. Pt gets infusions with potassium and magnesium, chronic pancreatitis. - Past Surgical History Past Surgical History: Yes (ileostomy, suprapubic catheter) Neuro Surgical History: No Pertinent History Cardiac History: No Pertinent History Respiratory Surgery: No Pertinent History GI Surgical History: Bowel Surgery, Cholecystectomy Genitourinary Surgical Hx: Other Musculskeletal Surgical Hx: No Pertinent History Female Surgical History: Hysterectomy Other Surgical History: has 120 cm of small bowel, urostomy following compications after surgery to remove adhesions. PROCEDURE 09/07/19 TO DEADEN NERVES OF PANCREASE - Social History Smoking Status: Current every day smoker How long have you smoked: 20 years Exposure to second hand smoke: Yes Alcohol: None Drug Use: none - Physical Exam Vital Signs: Vital Signs - 24 hr Temp Pulse Resp BP Pulse Ox 01/24/20 20:00 97 F 73 18 120/75 97 01/24/20 19:05 99 01/24/20 18:20 95 01/24/20 16:06 95 01/24/20 16:00 98 F 74 14 137/56 96 01/24/20 14:00 18 01/24/20 12:27 98.4 F 96 H 18 108/72 96 01/24/20 11:54 96 Results - Labs Lab/Micro Results: Lab Results-Last 24 Hours 01/24/20 01/24/20 01/24/20 Range/Units 11:45 11:45 12:41 WBC 6.5 (4.0-10.5) K/mm3 RBC 4.23 (4.1-5.4) M/mm3 Hgb 12.1 (12.0-16.0) gm/dl Hct 37.4 (35-47) % MCV 88.4 (78-100) fl MCH 28.6 (26-32) pg MCHC 32.4 (32-36) g/dl RDW 14.6 H (11.5-14.0) % Plt Count 262 (150-450) K/mm3 MPV 10.2 (7.5-11.0) fl Sodium 136 L (137-145) mmol/L Potassium 3.2 L (3.5-5.1) mmol/L Chloride 96 L (98-107) mmol/L Carbon Dioxide 27 (22-30) mmol/L Anion Gap 16.4 H (5-15) MEQ/L BUN 13 (7-17) mg/dL Creatinine 0.94 (0.52-1.04) mg/dL Estimated GFR > 60.0 ML/MIN Glucose 89 (74-106) mg/dL Calcium 9.2 (8.4-10.2) mg/dL Magnesium 1.8 (1.6-2.3) mg/dL Total Bilirubin 0.60 (0.2-1.3) mg/dL AST 35 (14-36) U/L ALT 40 H (0-35) U/L Alkaline Phosphatase 135 H (38-126) U/L Serum Total Protein 7.7 (6.3-8.2) g/dL Albumin 4.4 (3.5-5.0) g/dL Amylase 147 H (30-110) U/L Lipase 496 H (23-300) U/L Urine Color YELLOW (YELLOW) Urine Appearance CLEAR (CLEAR) Urine pH 6.0 (5-6) Ur Specific [place] 1.012 (1.005-1.025) Urine Protein NEGATIVE (Negative) Urine Ketones NEGATIVE (NEGATIVE) Urine Blood SMALL (0-5) Gregg/ul Urine Nitrite NEGATIVE (NEGATIVE) Urine Bilirubin NEGATIVE (NEGATIVE) Urine Urobilinogen NEGATIVE (0-1) mg/dL Ur Leukocyte Esterase MODERATE (NEGATIVE) Urine WBC (Auto) 6-10 (0-5) /HPF Urine RBC (Auto) 3-5 (0-2) /HPF U Epithel Cells (Auto) NONE (FEW) /HPF Urine Bacteria (Auto) FEW (NEGATIVE) /HPF Urine Mucus (Auto) SLIGHT (NEGATIVE) /HPF Urine Culture Reflexed ORDERED SEPARATELY (NO) Urine Glucose NEGATIVE (NEGATIVE) mg/dL
[2020-01-24] MEDS ORDERED: NON-FORMULARY ITEM (Sertraline Hcl [Zoloft] 100 MG) PO SCH (22:00)
[2020-01-24] MEDS: ZOLOFT 50 MG TABLET PO SCH (22:27)
[2020-01-25] MEDS: BENADRYL 50 MG/ML IV PRN ×6 (00:10→22:15)
[2020-01-25] MEDS: Phenergan 25 MG INJ IV PRN ×3 (01:12→16:09)
[2020-01-25 05:15] LABS: Hematocrit 35.8 % (35-47); Hemoglobin 11.2 gm/dl (12.0-16.0); Mean Cell Volume 90.6 fl (78-100); Mean Corpuscular Hemoglobin 28.4 pg (26-32); Mean Corpuscular Hgb Concent. 31.3 g/dl (32-36); Mean Platelet Volume 10.3 fl (7.5-11.0); Platelet Count 258 K/mm3 (150-450); Red Blood Count 3.95 M/mm3 (4.1-5.4); Red Cell Distribution Width 14.6 % (11.5-14.0); White Blood Count 5.8 K/mm3 (4.0-10.5)
[2020-01-25 05:48] LABS: ALBUMIN 3.9 g/dL (3.5-5.0); ALKALINE PHOSPHATASE 121 U/L (38-126); AMYLASE 120 U/L (30-110); BLOOD UREA NITROGEN 8 mg/dL (7-17); CHLORIDE 100 mmol/L (98-107); Carbon Dioxide 30 mmol/L (22-30); Creatinine 1 0.84 mg/dL (0.52-1.04); Glucose 87 mg/dL (74-106); LIPASE 231 U/L (23-300); MAGNESIUM 1.8 mg/dL (1.6-2.3); Potassium 3.9 mmol/L (3.5-5.1); SGOT/AST 31 U/L (14-36); SGPT/ALT 32 U/L (0-35); SODIUM 136 mmol/L (137-145)
[2020-01-25] MEDS: Lactated Ringers 1,000 ML IV SCH ×2 (08:04→18:25)
[2020-01-25] MEDS: LYRICA 100MG PO SCH ×2 (08:49→22:15)
[2020-01-25] MEDS: BUSPAR 5 MG PO SCH ×3 (08:49→22:15)
--- NOTE | 2020-01-25 12:29 | XRAY ---
Indication: Recurrent pancreatitis. Multiple contiguous axial images obtained through the abdomen and pelvis prior to and following 80 cc Isovue 370 contrast as ordered. Comparison: August 06, 2019. Lung bases demonstrate minimal bibasilar dependent atelectasis and fibrosis/scarring. No focal infiltrate or effusion. Heart is not enlarged. Noncontrasted images again negative for pathologic visceral calcifications or calculi. Noncontrasted stomach and bowel loops nonobstructed with again right lower quadrant colostomy and a suprapubic catheter. No free fluid/air. Again cholecystectomy and hysterectomy. Distal common bile duct is now 10 mm, within normal limits. No intrahepatic biliary or pancreatic duct distention. Left lobe liver demonstrates new 5 mm cyst not well seen on previous noncontrast exam. Postcontrast images demonstrate normal visceral enhancement and renal excretion. Remaining liver, pancreas, spleen, adrenal glands, kidneys, ureters, bladder, and aorta are unremarkable. No pathologic retroperitoneal lymphadenopathy. Osseous structures intact. Impression: 1. Again negative pathologic visceral calcifications/calculi. 2. Stable right lower quadrant colostomy and suprapubic catheter without complications. 3. New prominent distal common bile duct without intrahepatic biliary distention or choledochal stone. Rule out sphincter of Kd dysfunction/stenosis. 4. Incidental tiny hepatic cyst.
[2020-01-25] MEDS: Zofran 4 MG/2 ML VIAL IV PRN ×2 (18:15→22:27)
[2020-01-25] MEDS: ZOLOFT 50 MG TABLET PO SCH (22:15)
[2020-01-26] MEDS: BENADRYL 50 MG/ML IV PRN ×3 (02:18→14:06)
[2020-01-26] MEDS: Phenergan 25 MG INJ IV PRN ×3 (02:27→18:25)
[2020-01-26] MEDS: Lactated Ringers 1,000 ML IV SCH ×2 (04:29→14:54)
[2020-01-26 04:54] LABS: Hematocrit 33.1 % (35-47); Hemoglobin 10.3 gm/dl (12.0-16.0); Mean Cell Volume 91.2 fl (78-100); Mean Corpuscular Hemoglobin 28.4 pg (26-32); Mean Corpuscular Hgb Concent. 31.1 g/dl (32-36); Mean Platelet Volume 10.5 fl (7.5-11.0); Platelet Count 253 K/mm3 (150-450); Red Blood Count 3.63 M/mm3 (4.1-5.4); Red Cell Distribution Width 14.5 % (11.5-14.0); White Blood Count 5.9 K/mm3 (4.0-10.5)
[2020-01-26 05:26] LABS: ALBUMIN 3.7 g/dL (3.5-5.0); ALKALINE PHOSPHATASE 106 U/L (38-126); AMYLASE 135 U/L (30-110); ANION GAP 9.9 MEQ/L (5-15); BLOOD UREA NITROGEN 12 mg/dL (7-17); CHLORIDE 98 mmol/L (98-107); Calcium 8.4 mg/dL (8.4-10.2); Carbon Dioxide 32 mmol/L (22-30); Creatinine 1 0.91 mg/dL (0.52-1.04); Glucose 91 mg/dL (74-106); LIPASE 320 U/L (23-300); MAGNESIUM 1.5 mg/dL (1.6-2.3); SGOT/AST 28 U/L (14-36); SGPT/ALT 28 U/L (0-35); SODIUM 136 mmol/L (137-145); Total Protein 6.6 g/dL (6.3-8.2)
[2020-01-26] MEDS: Zofran 4 MG/2 ML VIAL IV PRN ×2 (06:14→11:04)
[2020-01-26] MEDS: LYRICA 100MG PO SCH ×2 (09:27→21:45)
[2020-01-26] MEDS: BUSPAR 5 MG PO SCH ×3 (09:27→21:45)
[2020-01-26] MEDS ORDERED: PHARMACY DOSING REQUIRED: MORPHINE PCA IV STA (09:35)
[2020-01-26] MEDS: Morphine PCA 1 MG/ML 30 ML IV PRN ×2 (09:54→20:19)
--- NOTE | 2020-01-26 18:06 | PCM.NOTE ---
Date and Time: 01/26/201800 Subjective Assessment: 54 yr old female seen and examined this am. She reports that she still has pain. She wanted to switch from diuladid to morphine as the diuladid was making her itch. She has been advancing her diet as tolerated and doing ok. No reported vomiting. Still has abdominal pain especially epigastric area. Patient had no other reported concerns. She would like to go home tomorrow as early as possible if her labs look good. - Review of Systems Constitutional: No Fever Respiratory: No Cough, No Short Of Breath Cardiac: No Chest Pain, No Edema Abdominal/Gastrointestinal: Abdominal Pain, Other (ostomy), No Vomiting Genitourinary Symptoms: Other (urinary catheter) Neurological: No Headache Objective Exam General Appearance: no apparent distress Neurologic Exam: alert, oriented x 3, cooperative, normal mood/affect Skin Exam: normal color, warm, dry, No rash Eye Exam: No scleral icterus, No pale conjunctivae Ears, Nose, Throat Exam: moist mucous membranes Neck Exam: normal inspection Respiratory Exam: normal breath sounds, lungs clear, No chest tenderness, No respiratory distress, No diminished breath sounds, No wheezing Cardiovascular Exam: regular rate/rhythm, No murmur, No friction rub, No gallop Gastrointestinal/Abdomen Exam: soft, normal bowel sounds, tenderness, distention (Left sided area of distention tender with palpation), other, No mass, No guarding Extremity Exam: normal inspection Back Exam: normal inspection OBJECTIVE DATA Vital Signs: Vital Signs - 24 hr Temp Pulse Resp BP Pulse Ox 01/26/20 17:57 96 01/26/20 16:00 99.4 F 82 16 106/59 94 L 01/26/20 12:00 98.0 F 79 15 103/59 94 L 01/26/20 09:54 97 01/26/20 08:00 98.2 F 90 16 125/77 94 L 01/26/20 06:43 96 01/26/20 04:00 97.4 F 86 16 103/59 90 L 01/26/20 00:00 96 01/25/20 23:49 98.2 F 77 16 110/60 96 01/25/20 22:20 96 01/25/20 20:08 96 01/25/20 20:06 93 L 01/25/20 20:00 98.2 F 78 16 111/59 96 Pain Assessment - Last Documented Pain Intensity 3 Pain Scale Used 0-10 Pain Scale Intake and Output: Intake & Output 01/24/20 01/25/20 01/26/20 01/27/20 11:59 11:59 11:59 11:59 Intake Total 4396 5890 2706 Output Total 4459 0155 3950 Balance -54 3340 -1244 Weight 57.5 kg Lab Results: Lab Results-Last 24 Hours 01/26/20 01/26/20 Range/Units 04:40 04:40 WBC 5.9 (4.0-10.5) K/mm3 RBC 3.63 L (4.1-5.4) M/mm3 Hgb 10.3 L (12.0-16.0) gm/dl Hct 33.1 L (35-47) % MCV 91.2 (78-100) fl MCH 28.4 (26-32) pg MCHC 31.1 L (32-36) g/dl RDW 14.5 H (11.5-14.0) % Plt Count 253 (150-450) K/mm3 MPV 10.5 (7.5-11.0) fl Sodium 136 L (137-145) mmol/L Potassium 4.0 (3.5-5.1) mmol/L Chloride 98 (98-107) mmol/L Carbon Dioxide 32 H (22-30) mmol/L Anion Gap 9.9 (5-15) MEQ/L BUN 12 (7-17) mg/dL Creatinine 0.91 (0.52-1.04) mg/dL Estimated GFR > 60.0 ML/MIN Glucose 91 (74-106) mg/dL Calcium 8.4 (8.4-10.2) mg/dL Magnesium 1.5 L (1.6-2.3) mg/dL Total Bilirubin 0.30 (0.2-1.3) mg/dL AST 28 (14-36) U/L ALT 28 (0-35) U/L Alkaline Phosphatase 106 (38-126) U/L Serum Total Protein 6.6 (6.3-8.2) g/dL Albumin 3.7 (3.5-5.0) g/dL Amylase 135 H (30-110) U/L Lipase 320 H (23-300) U/L Radiology Exams: Radiology Procedures Category Date Time Status ABDOMEN AND PELVIS W&WO CONTRA [CT] Routine Exams 01/25/20 00:01 Completed Multi-Disciplinary Progress Notes: Multi-Disciplinary Progress Notes 01/26/20 08:59 Case Management Note by Mirela Rose NO CHANGE IN DC PLANS AT THIS TIME, PATIENT INDEPENDENT AT HOME AND LIVES WITH HER . PATIENT HAS STANDING ORDERS IN THE [facility]ION [facility]. Initialized on 01/26/20 08:59 - END OF NOTE Assessment/Plan (1) Acute on chronic pancreatitis Current Visit: No Status: Acute Assessment & Plan: 54 yr old with chronic pancreatitis. Patient started to have improvement of pancreatic enzymes but then started to have worsening pancreatic enzymes. Patient reports she continues to have pain although slightly improved. Discussed with patient getting repeat labs and then consideration for DC in am if her labs have improved. Code(s): K85.90 - ACUTE PANCREATITIS WITHOUT NECROSIS OR INFECTION, UNSP; K86.1 - OTHER CHRONIC PANCREATITIS (2) Abdominal pain Current Visit: No Status: Acute Onset Date: ~07/17/18 Qualifiers: Abdominal location: unspecified location Qualified Code(s): R10.9 - Unspecified abdominal pain Assessment & Plan: Chronic in nature. Patient has had multiple surgeries. Has an colostomy present. Her CT scan showed: New prominent distal common bile duct without intrahepatic biliary distention or choledochal stone. Rule out sphincter of Kd dysfunction/stenosis. Code(s): R10.9 - UNSPECIFIED ABDOMINAL PAIN (3) Ileostomy in place Current Visit: No Status: Chronic Code(s): Z93.2 - ILEOSTOMY STATUS (4) Anemia Current Visit: No Status: Chronic Qualifiers: Anemia type: unspecified type Qualified Code(s): D64.9 - Anemia, unspecified Assessment & Plan: Likely anemia of chronic disease. Will continue to trend CBC Code(s): D64.9 - ANEMIA, UNSPECIFIED (5) Suprapubic catheter Current Visit: No Status: Chronic Assessment & Plan: UA collected which showed mixed go. No tx for UTI Code(s): Z93.59 - OTHER CYSTOSTOMY STATUS
[2020-01-26] MEDS: ZOLOFT 50 MG TABLET PO SCH (21:45)
[2020-01-27] MEDS: Lactated Ringers 1,000 ML IV SCH (00:55)
[2020-01-27] MEDS: Phenergan 25 MG INJ IV PRN (03:34)
[2020-01-27 05:23] LABS: Hematocrit 29.9 % (35-47); Hemoglobin 9.3 gm/dl (12.0-16.0); Mean Corpuscular Hemoglobin 28.6 pg (26-32); Mean Corpuscular Hgb Concent. 31.1 g/dl (32-36); Mean Platelet Volume 10.5 fl (7.5-11.0); Platelet Count 251 K/mm3 (150-450); Red Blood Count 3.25 M/mm3 (4.1-5.4); Red Cell Distribution Width 14.6 % (11.5-14.0); White Blood Count 4.3 K/mm3 (4.0-10.5)
[2020-01-27 05:39] LABS: ALKALINE PHOSPHATASE 81 U/L (38-126); AMYLASE 102 U/L (30-110); ANION GAP 8.8 MEQ/L (5-15); BLOOD UREA NITROGEN 10 mg/dL (7-17); CHLORIDE 105 mmol/L (98-107); Calcium 7.9 mg/dL (8.4-10.2); Carbon Dioxide 29 mmol/L (22-30); Creatinine 1 0.92 mg/dL (0.52-1.04); Glucose 87 mg/dL (74-106); LIPASE 249 U/L (23-300); MAGNESIUM 1.4 mg/dL (1.6-2.3); Potassium 3.6 mmol/L (3.5-5.1); SGOT/AST 21 U/L (14-36); SGPT/ALT 19 U/L (0-35); SODIUM 140 mmol/L (137-145); Total Protein 5.6 g/dL (6.3-8.2)
[2020-01-27 06:34] VITALS: O2SAT 92
[2020-01-27 07:29] VITALS: BP 112/57; PULSE 78
[2020-01-27] MEDS: BUSPAR 5 MG PO SCH (08:55)
[2020-01-27] MEDS: LYRICA 100MG PO SCH (08:56)
--- NOTE | 2020-01-27 19:34 | PCM.NOTE ---
Date and Time: 01/27/201932 Subjective Assessment: 54 yr old patient seen and examined today. Patient reports severe headache due to lack of caffeine this am. Patient was NPO for her CT scan. Patient reports that she was tolerating some PO intake. She is still reporting abdominal pain. Slightly improved with pain medication IV fluids and bland diet. She reports she feels a little more distended on L abdomen. - Review of Systems Constitutional: No Fever, No Chills Eyes: No Symptoms Ears, Nose, & Throat: No Symptoms Respiratory: No Cough, No Short Of Breath, No Wheezing Cardiac: No Chest Pain, No Edema Abdominal/Gastrointestinal: Abdominal Pain, Nausea, Other (ostomy), No Vomiting, No Diarrhea, No Constipation Genitourinary Symptoms: Other (catheter) Musculoskeletal: No Symptoms Skin: No Cellulitis Neurological: Headache Psychological: No Symptoms Objective Exam General Appearance: mild distress Neurologic Exam: alert, oriented x 3, cooperative, normal mood/affect Skin Exam: normal color, warm, dry, No rash Eye Exam: eyes nml inspection, No scleral icterus, No pale conjunctivae Ears, Nose, Throat Exam: moist mucous membranes Neck Exam: normal inspection Respiratory Exam: normal breath sounds, lungs clear, No chest tenderness, No respiratory distress, No diminished breath sounds, No wheezing Cardiovascular Exam: regular rate/rhythm, normal heart sounds, No murmur, No friction rub, No gallop, No tachycardia, No bradycardia Gastrointestinal/Abdomen Exam: soft, normal bowel sounds, tenderness, distention, No mass, No guarding Extremity Exam: normal inspection, No pedal edema, No swelling Back Exam: normal inspection OBJECTIVE DATA Vital Signs: Vital Signs - 24 hr Temp Pulse Resp BP Pulse Ox 01/27/20 08:00 92 L 01/27/20 07:29 97.8 F 78 14 112/57 92 L 01/27/20 06:34 92 L 01/27/20 04:00 98.1 F 72 16 102/55 91 L 01/27/20 00:00 99.0 F 73 16 90/52 92 L 01/26/20 20:19 93 L 01/26/20 20:00 98.5 F 86 16 91/51 96 01/26/20 19:44 94 L Pain Assessment - Last Documented Pain Intensity 3 Pain Scale Used 0-10 Pain Scale Intake and Output: Intake & Output 0601/26/20 01/27/20 01/28/20 11:59 11:59 11:59 11:59 Intake Total 2683 6101 0202 Output Total 3429 1158 7096 Balance -54 3760 -943 Weight 57.5 kg Lab Results: Lab Results-Last 24 Hours 01/27/20 01/27/20 Range/Units 04:20 04:20 WBC 4.3 (4.0-10.5) K/mm3 RBC 3.25 L (4.1-5.4) M/mm3 Hgb 9.3 L (12.0-16.0) gm/dl Hct 29.9 L (35-47) % MCV 92.0 (78-100) fl MCH 28.6 (26-32) pg MCHC 31.1 L (32-36) g/dl RDW 14.6 H (11.5-14.0) % Plt Count 251 (150-450) K/mm3 MPV 10.5 (7.5-11.0) fl Sodium 140 (137-145) mmol/L Potassium 3.6 (3.5-5.1) mmol/L Chloride 105 (98-107) mmol/L Carbon Dioxide 29 (22-30) mmol/L Anion Gap 8.8 (5-15) MEQ/L BUN 10 (7-17) mg/dL Creatinine 0.92 (0.52-1.04) mg/dL Estimated GFR > 60.0 ML/MIN Glucose 87 (74-106) mg/dL Calcium 7.9 L (8.4-10.2) mg/dL Magnesium 1.4 L (1.6-2.3) mg/dL Total Bilirubin 0.30 (0.2-1.3) mg/dL AST 21 (14-36) U/L ALT 19 (0-35) U/L Alkaline Phosphatase 81 (38-126) U/L Serum Total Protein 5.6 L (6.3-8.2) g/dL Albumin 3.0 L (3.5-5.0) g/dL Amylase 102 (30-110) U/L Lipase 249 (23-300) U/L Multi-Disciplinary Progress Notes: Multi-Disciplinary Progress Notes 01/27/20 10:09 Case Management Note by Mirela Rose NO NEEDS IDENTIFIED AT MA. PATIENT HAS STANDING ORDERS IN OUTPT FOR INFUSIONS. Initialized on 01/27/20 10:09 - END OF NOTE Assessment/Plan (1) Acute on chronic pancreatitis Status: Acute Assessment & Plan: Patient had CT scan that showed prominent duct. Patient sees Dr Castle at [facility] will have her follow up with Dr Castle to determine if patient potentially needs further evaluation including a follow up ERCP. Will continue on IV fluids and pain medication. Will get repeat labs in am. Patient's labs had improved but amylase was still elevated Code(s): K85.90 - ACUTE PANCREATITIS WITHOUT NECROSIS OR INFECTION, UNSP; K86.1 - OTHER CHRONIC PANCREATITIS (2) Abdominal pain Status: Acute Onset Date: ~07/17/18 Qualifiers: Abdominal location: unspecified location Qualified Code(s): R10.9 - Unspecified abdominal pain Assessment & Plan: Patient still has tenderness with palpation and left sided abdominal distention. CT did not show any obstruction. Will taper back diet as needed and then progress diet again as tolerated. Code(s): R10.9 - UNSPECIFIED ABDOMINAL PAIN (3) Ileostomy in place Status: Chronic Code(s): Z93.2 - ILEOSTOMY STATUS (4) Anemia Status: Chronic Qualifiers: Anemia type: unspecified type Qualified Code(s): D64.9 - Anemia, unspecified Assessment & Plan: Likely anemia of chronic disease. Will continue to trend labs. Code(s): D64.9 - ANEMIA, UNSPECIFIED (5) Suprapubic catheter Status: Chronic Assessment & Plan: Patient did have urine collected which showed mixed go. Will not tx with antibiotics at this time. Code(s): Z93.59 - OTHER CYSTOSTOMY STATUS
--- NOTE | 2020-01-27 19:34 | PCM.DS ---
Discharge Summary Date of Admission: 01/25/20 12:00 Admitting Physician: JOSE ZAMORANO Primary Care Provider: JOSE ZAMORANO Allergies Allergies oxybutynin Allergy (Severe, Verified 01/04/20 08:10) Swelling pharyngeal swelling oxycodone [From Percocet] Allergy (Intermediate, Verified 01/04/20 08:10) Hives Pt. stated " Immediatly after taking it I felt like I was coming out of my skin." ampicillin Allergy (Mild, Verified 01/04/20 08:10) Hives hives erythromycin base [Erythromycin Base] Allergy (Mild, Verified 01/04/20 08:10) Hives Hives duloxetine HCl [From Cymbalta] Allergy (Unknown, Verified 01/04/20 08:10) Tightness of Throat nystatin Adverse Reaction (Verified 01/04/20 08:10) swellling swelling in lips. moprhin Adverse Reaction (Severe, Uncoded 12/20/19 11:09) Swelling upper and lower lip swelling. hives. Hospital Summary - Vitals & Intake/Output Vital Signs: Vital Signs Temperature 97.8 F 01/27/20 07:29 Pulse Rate 78 01/27/20 07:29 Respiratory Rate 14 01/27/20 07:29 Blood Pressure 112/57 01/27/20 07:29 O2 Sat by Pulse Oximetry 92 L 01/27/20 08:00 Intake & Output: Intake & Output 01/25/20 01/26/20 01/27/20 01/28/20 11:59 11:59 11:59 11:59 Intake Total 4392 3536 5719 Output Total 0352 9171 5474 Balance -54 1280 -944 Weight 57.5 kg - Lab Result Diagrams: 01/27/20 04:20 01/27/20 04:20 Lab Results-Last 24 Hrs: Lab Results-Last 24 Hours 01/27/20 01/27/20 Range/Units 04:20 04:20 WBC 4.3 (4.0-10.5) K/mm3 RBC 3.25 L (4.1-5.4) M/mm3 Hgb 9.3 L (12.0-16.0) gm/dl Hct 29.9 L (35-47) % MCV 92.0 (78-100) fl MCH 28.6 (26-32) pg MCHC 31.1 L (32-36) g/dl RDW 14.6 H (11.5-14.0) % Plt Count 251 (150-450) K/mm3 MPV 10.5 (7.5-11.0) fl Sodium 140 (137-145) mmol/L Potassium 3.6 (3.5-5.1) mmol/L Chloride 105 (98-107) mmol/L Carbon Dioxide 29 (22-30) mmol/L Anion Gap 8.8 (5-15) MEQ/L BUN 10 (7-17) mg/dL Creatinine 0.92 (0.52-1.04) mg/dL Estimated GFR > 60.0 ML/MIN Glucose 87 (74-106) mg/dL Calcium 7.9 L (8.4-10.2) mg/dL Magnesium 1.4 L (1.6-2.3) mg/dL Total Bilirubin 0.30 (0.2-1.3) mg/dL AST 21 (14-36) U/L ALT 19 (0-35) U/L Alkaline Phosphatase 81 (38-126) U/L Serum Total Protein 5.6 L (6.3-8.2) g/dL Albumin 3.0 L (3.5-5.0) g/dL Amylase 102 (30-110) U/L Lipase 249 (23-300) U/L Micro Results-Entire Visit: Microbiology 01/24/20 13:00 Urine Culture - Final Urine, Void <10K NORMAL SKIN BEVERLY PROBABLE SKIN CONTAMINANT Final Diagnosis/Problem List - Final Discharge Diagnosis/Problem (1) Acute on chronic pancreatitis Status: Acute Code(s): K85.90 - ACUTE PANCREATITIS WITHOUT NECROSIS OR INFECTION, UNSP; K86.1 - OTHER CHRONIC PANCREATITIS (2) Abdominal pain Status: Acute Onset Date: ~07/17/18 Code(s): R10.9 - UNSPECIFIED ABDOMINAL PAIN (3) Ileostomy in place Status: Chronic Code(s): Z93.2 - ILEOSTOMY STATUS (4) Anemia Status: Chronic Code(s): D64.9 - ANEMIA, UNSPECIFIED (5) Suprapubic catheter Status: Chronic Code(s): Z93.59 - OTHER CYSTOSTOMY STATUS - Discharge Disposition: Home, Self-Care Condition: Stable Prescriptions: Continue Pregabalin [Lyrica] 100 mg PO BID Heparin Flush 500 units/5 ml [Heparin Lock Flush 100 Units/ml 5ml Syringe] 500 units PORT FLUSH PRN PRN disp.syrin PRN Reason: Iv Port Flush Buspirone HCl 5 mg [Buspar 5 mg] 15 mg PO TID Sertraline HCl [Zoloft] 100 mg PO HS Hydrocodone/APAP 10/325 mg [[place] 10/325 MG Tablet] 1 tab PO QID PRN PRN tablet PRN Reason: Pain ondansetron HCL [Ondansetron HCl] 4 mg PO Q4H PRN PRN #30 tablet PRN Reason: Nausea Instructions: Pancreatitis (DC) Additional Instructions: Continue outpatient infusions tomorrow. Follow up with: JOSE ZAMORANO [Primary Care Provider] - 02/08/20 10:15 am Forms: Discharge Instructions
== END 2020-01-27 09:13 | disposition home or self-care (01) | DRG 440 ==
LOC: MED SURG 11:13 → OBSVTOIN 01-25 12:00
PROVIDERS: ADMIT Family Medicine; ATTEND Family Medicine
DX: K85.90 Acute pancreatitis without necrosis or infection, unspecified (principal); K86.1 Other chronic pancreatitis; R10.9 Unspecified abdominal pain; Z93.2 Ileostomy status; D64.9 Anemia, unspecified; E87.6 Hypokalemia; R51 Headache; Z93.59 Other cystostomy status; Z79.899 Other long term (current) drug therapy
CPT/HCPCS: 36415; 74178; 80053; 81001; 82150; 83690; 83735; 85027; 87086; 93268; 94762; G0378; 36591; 99211; J1170; J1200; J1642; J2270; J2405; J2550; A9270-GY

== ENCOUNTER 2020-02-08 09:28 | Inpatient (IN) | payer MEDICARE ==
[2020-02-08] MEDS ORDERED: MORPHINE SULFATE 10 MG/ML IV ONE (12:00)
[2020-02-08] MEDS: Morphine PCA 1 MG/ML 30 ML IV PRN ×2 (12:00→19:10)
[2020-02-08] MEDS: Phenergan 25 MG INJ IV PRN ×2 (12:00→17:54)
[2020-02-08 12:07] LABS: ALBUMIN 4.6 g/dL (3.5-5.0); ANION GAP 15.2 MEQ/L (5-15); BILIRUBIN,TOTAL 0.7 mg/dL (0.2-1.3); Calcium 9.4 mg/dL (8.4-10.2); Creatinine 1 1.49 mg/dL (0.52-1.04); MAGNESIUM 1.9 mg/dL (1.6-2.3); Potassium 3.5 mmol/L (3.5-5.1); Total Protein 8.3 g/dL (6.3-8.2)
[2020-02-08] MEDS: Lactated Ringers 1,000 ML IV SCH ×2 (12:14→17:58)
[2020-02-08 13:03] LABS: Absolute Neutrophil Ct (ANC) 4.01 (1.4-6.9); BASOPHIL % 0.9 % (0.0-0.4); Basophil (Absolute #) 0.06 (0-0.4); Eosinophil % 5.5 % (0.00-5.0); Eosinophil (Absolute #) 0.38 (0-0.5); Hematocrit 40.3 % (35-47); Hemoglobin 12.9 gm/dl (12.0-16.0); Lymphocyte (Absolute #) 1.88 (1.0-4.6); Lymphocytes % 27.2 % (24.0-44.0); Mean Corpuscular Hemoglobin 28.2 pg (26-32); Mean Platelet Volume 10.5 fl (7.5-11.0); Monocyte (Absolute #) 0.57 (0.0-1.3); Monocytes % 8.3 % (0.0-12.0); Neutrophil % 58.1 % (36.0-66.0); Platelet Count 324 K/mm3 (150-450); Red Blood Count 4.58 M/mm3 (4.1-5.4); Red Cell Distribution Width 15.4 % (11.5-14.0); White Blood Count 6.9 K/mm3 (4.0-10.5)
[2020-02-08] MEDS: Zofran 4 MG/2 ML VIAL IV PRN (14:26)
[2020-02-08 14:44] LABS: Appearance SLIGHTLY CLOUDY (CLEAR); Bacteria RARE /HPF (NEGATIVE); Bilirubin NEGATIVE (NEGATIVE); Blood SMALL Ery/ul (0-5); Glucose NEGATIVE (NEGATIVE); Ketones NEGATIVE (NEGATIVE); Leukocyte Esterase LARGE (NEGATIVE); Mucus SLIGHT /HPF (NEGATIVE); Nitrite NEGATIVE (NEGATIVE); Protein,Urine Dip 30 (Negative); Specific Gravity 1.018 (1.005-1.025); Urobilinogen NEGATIVE mg/dL (0-1); WBC 26-50 /HPF (0-5)
[2020-02-08] MEDS: BUSPAR 5 MG PO SCH ×2 (16:04→21:25)
[2020-02-08] MEDS: ROCEPHIN 1 Gm-D5w 50 ml Bag** 1 G/50 ML IVPB IV SCH (19:47)
[2020-02-08] MEDS: LYRICA 100MG PO SCH (21:25)
[2020-02-08] MEDS: ZOLOFT 50 MG TABLET PO SCH (21:25)
[2020-02-08] MEDS ORDERED: LYRICA 75 MG CAP PO SCH (22:00)
[2020-02-08] MEDS ORDERED: NON-FORMULARY ITEM (Sertraline Hcl [Zoloft] 100 MG) PO SCH (22:00)
[2020-02-08] MEDS: BENADRYL 50 MG/ML IV PRN (22:10)
[2020-02-09] MEDS: Lactated Ringers 1,000 ML IV SCH ×2 (01:28→08:00)
[2020-02-09] MEDS: Morphine PCA 1 MG/ML 30 ML IV PRN ×3 (03:38→18:33)
[2020-02-09 06:21] LABS: ALBUMIN 3.3 g/dL (3.5-5.0); ALKALINE PHOSPHATASE 103 U/L (38-126); AMYLASE 112 U/L (30-110); ANION GAP 9.6 MEQ/L (5-15); BLOOD UREA NITROGEN 13 mg/dL (7-17); CHLORIDE 102 mmol/L (98-107); Calcium 8.3 mg/dL (8.4-10.2); Carbon Dioxide 28 mmol/L (22-30); Glucose 84 mg/dL (74-106); LIPASE 355 U/L (23-300); MAGNESIUM 1.6 mg/dL (1.6-2.3); Potassium 3.7 mmol/L (3.5-5.1); SGOT/AST 31 U/L (14-36); SGPT/ALT 37 U/L (0-35); SODIUM 136 mmol/L (137-145); Total Protein 6.1 g/dL (6.3-8.2)
[2020-02-09 08:25] LABS: Hematocrit 31.4 % (35-47); Hemoglobin 9.8 gm/dl (12.0-16.0); Mean Cell Volume 90.8 fl (78-100); Mean Corpuscular Hemoglobin 28.3 pg (26-32); Mean Corpuscular Hgb Concent. 31.2 g/dl (32-36); Platelet Count 236 K/mm3 (150-450); Red Blood Count 3.46 M/mm3 (4.1-5.4); Red Cell Distribution Width 15.2 % (11.5-14.0); White Blood Count 5.4 K/mm3 (4.0-10.5)
[2020-02-09] MEDS: Phenergan 25 MG INJ IV PRN ×2 (08:30→14:43)
[2020-02-09] MEDS: BUSPAR 5 MG PO SCH ×3 (09:29→21:21)
[2020-02-09] MEDS: LYRICA 100MG PO SCH ×2 (09:29→21:22)
--- NOTE | 2020-02-09 09:29 | PCM.NOTE ---
Date and Time: 02/09/20927 Subjective Assessment: patient c/o nausea and epigastric pain, denies any bleeding Objective Exam General Appearance: no apparent distress Neurologic Exam: alert, cooperative Respiratory Exam: normal breath sounds, lungs clear, No respiratory distress Cardiovascular Exam: regular rate/rhythm, normal heart sounds Gastrointestinal/Abdomen Exam: soft, tenderness, other (ostomy present), No distention, No guarding, No rebound OBJECTIVE DATA Vital Signs: Vital Signs - 24 hr Temp Pulse Resp BP Pulse Ox 02/09/20 08:00 98.5 F 76 14 108/61 96 02/09/20 07:38 94 L 02/09/20 06:05 94 L 02/09/20 04:09 98.7 F 82 16 100/59 94 L 02/09/20 04:00 91 L 02/09/20 03:38 92 L 02/09/20 00:00 97.8 F 85 18 112/64 92 L 02/08/20 23:10 93 L 02/08/20 20:00 98.5 F 76 18 93/62 94 L 02/08/20 19:10 95 02/08/20 16:00 97 02/08/20 15:55 98.4 F 88 16 105/62 97 02/08/20 12:00 96 02/08/20 11:56 98.3 F 94 H 18 142/79 96 Pain Assessment - Last Documented Pain Intensity 5 Pain Scale Used 0-10 Pain Scale Intake and Output: Intake & Output 02/06/20 02/07/20 02/08/20 02/09/20 11:59 11:59 11:59 11:59 Intake Total 4047 Output Total 2075 Balance Critical access hospital Weight 64.3 kg Lab Results: Lab Results-Last 24 Hours 02/08/20 02/08/20 02/08/20 Range/Units 11:47 11:47 13:28 WBC 6.9 (4.0-10.5) K/mm3 RBC 4.58 (4.1-5.4) M/mm3 Hgb 12.9 (12.0-16.0) gm/dl Hct 40.3 (35-47) % MCV 88.0 (78-100) fl MCH 28.2 (26-32) pg MCHC 32.0 (32-36) g/dl RDW 15.4 H (11.5-14.0) % Plt Count 324 (150-450) K/mm3 MPV 10.5 (7.5-11.0) fl Gran % 58.1 (36.0-66.0) % Eos # (Auto) 0.38 (0-0.5) Absolute Lymphs (auto) 1.88 (1.0-4.6) Absolute Monos (auto) 0.57 (0.0-1.3) Lymphocytes % 27.2 (24.0-44.0) % Monocytes % 8.3 (0.0-12.0) % Eosinophils % 5.5 H (0.00-5.0) % Basophils % 0.9 (0.0-0.4) % Absolute Granulocytes 4.01 (1.4-6.9) Basophils # 0.06 (0-0.4) Sodium 136 L (137-145) mmol/L Potassium 3.5 (3.5-5.1) mmol/L Chloride 96 L (98-107) mmol/L Carbon Dioxide 28 (22-30) mmol/L Anion Gap 15.2 H (5-15) MEQ/L BUN 18 H (7-17) mg/dL Creatinine 1.49 H (0.52-1.04) mg/dL Estimated GFR 38.8 ML/MIN Glucose 106 (74-106) mg/dL Calcium 9.4 (8.4-10.2) mg/dL Magnesium 1.9 (1.6-2.3) mg/dL Total Bilirubin 0.70 (0.2-1.3) mg/dL AST 52 H (14-36) U/L ALT 56 H (0-35) U/L Alkaline Phosphatase 158 H (38-126) U/L Serum Total Protein 8.3 H (6.3-8.2) g/dL Albumin 4.6 (3.5-5.0) g/dL Amylase 158 H (30-110) U/L Lipase 547 H (23-300) U/L Urine Color CARMEN (YELLOW) Urine Appearance SLIGHTLY CLOUDY (CLEAR) Urine pH 6.0 (5-6) Ur Specific [place] 1.018 (1.005-1.025) Urine Protein 30 (Negative) Urine Ketones NEGATIVE (NEGATIVE) Urine Blood SMALL (0-5) Gregg/ul Urine Nitrite NEGATIVE (NEGATIVE) Urine Bilirubin NEGATIVE (NEGATIVE) Urine Urobilinogen NEGATIVE (0-1) mg/dL Ur Leukocyte Esterase LARGE (NEGATIVE) Urine WBC (Auto) 26-50 (0-5) /HPF Urine RBC (Auto) 3-5 (0-2) /HPF U Epithel Cells (Auto) NONE (FEW) /HPF Urine Bacteria (Auto) RARE (NEGATIVE) /HPF Urine Mucus (Auto) SLIGHT (NEGATIVE) /HPF Urine Culture Reflexed ORDERED SEPARATELY (NO) Urine Glucose NEGATIVE (NEGATIVE) mg/dL 02/09/20 02/09/20 Range/Units 05:00 05:00 WBC 5.4 (4.0-10.5) K/mm3 RBC 3.46 L (4.1-5.4) M/mm3 Hgb 9.8 L D (12.0-16.0) gm/dl Hct 31.4 L (35-47) % MCV 90.8 (78-100) fl MCH 28.3 (26-32) pg MCHC 31.2 L (32-36) g/dl RDW 15.2 H (11.5-14.0) % Plt Count 236 (150-450) K/mm3 MPV 10.0 (7.5-11.0) fl Gran % (36.0-66.0) % Eos # (Auto) (0-0.5) Absolute Lymphs (auto) (1.0-4.6) Absolute Monos (auto) (0.0-1.3) Lymphocytes % (24.0-44.0) % Monocytes % (0.0-12.0) % Eosinophils % (0.00-5.0) % Basophils % (0.0-0.4) % Absolute Granulocytes (1.4-6.9) Basophils # (0-0.4) Sodium 136 L (137-145) mmol/L Potassium 3.7 (3.5-5.1) mmol/L Chloride 102 (98-107) mmol/L Carbon Dioxide 28 (22-30) mmol/L Anion Gap 9.6 (5-15) MEQ/L BUN 13 (7-17) mg/dL Creatinine 0.90 (0.52-1.04) mg/dL Estimated GFR > 60.0 ML/MIN Glucose 84 (74-106) mg/dL Calcium 8.3 L (8.4-10.2) mg/dL Magnesium 1.6 (1.6-2.3) mg/dL Total Bilirubin 0.30 (0.2-1.3) mg/dL AST 31 (14-36) U/L ALT 37 H (0-35) U/L Alkaline Phosphatase 103 (38-126) U/L Serum Total Protein 6.1 L (6.3-8.2) g/dL Albumin 3.3 L (3.5-5.0) g/dL Amylase 112 H (30-110) U/L Lipase 355 H (23-300) U/L Urine Color (YELLOW) Urine Appearance (CLEAR) Urine pH (5-6) Ur Specific [place] (1.005-1.025) Urine Protein (Negative) Urine Ketones (NEGATIVE) Urine Blood (0-5) Gregg/ul Urine Nitrite (NEGATIVE) Urine Bilirubin (NEGATIVE) Urine Urobilinogen (0-1) mg/dL Ur Leukocyte Esterase (NEGATIVE) Urine WBC (Auto) (0-5) /HPF Urine RBC (Auto) (0-2) /HPF U Epithel Cells (Auto) (FEW) /HPF Urine Bacteria (Auto) (NEGATIVE) /HPF Urine Mucus (Auto) (NEGATIVE) /HPF Urine Culture Reflexed (NO) Urine Glucose (NEGATIVE) mg/dL Assessment/Plan (1) Acute on chronic pancreatitis Current Visit: No Status: Acute Assessment & Plan: enzymes improving on CLD Code(s): K85.90 - ACUTE PANCREATITIS WITHOUT NECROSIS OR INFECTION, UNSP; K86.1 - OTHER CHRONIC PANCREATITIS (2) Anemia Current Visit: Yes Status: Acute Assessment & Plan: no obvious etiology, perhaps dilutional from aggressive hydration, will monitor Code(s): D64.9 - ANEMIA, UNSPECIFIED (3) Abdominal pain Current Visit: No Status: Acute Onset Date: ~07/17/18 Qualifiers: Code(s): R10.9 - UNSPECIFIED ABDOMINAL PAIN
[2020-02-09] MEDS: Zofran 4 MG/2 ML VIAL IV PRN ×2 (11:53→19:34)
[2020-02-09] MEDS ORDERED: Lactated Ringers 1,000 ML IV SCH (15:00)
[2020-02-09] MEDS: ROCEPHIN 1 Gm-D5w 50 ml Bag** 1 G/50 ML IVPB IV SCH (19:24)
[2020-02-09] MEDS: ZOLOFT 50 MG TABLET PO SCH (21:22)
[2020-02-09] MEDS: BENADRYL 50 MG/ML IV PRN (23:11)
[2020-02-10] MEDS: BENADRYL 50 MG/ML IV PRN ×2 (03:47→08:58)
[2020-02-10 05:03] LABS: Absolute Neutrophil Ct (ANC) 2.19 (1.4-6.9); BASOPHIL % 0.9 % (0.0-0.4); Basophil (Absolute #) 0.04 (0-0.4); Eosinophil % 5.4 % (0.00-5.0); Eosinophil (Absolute #) 0.25 (0-0.5); Hematocrit 30.9 % (35-47); Hemoglobin 9.5 gm/dl (12.0-16.0); Lymphocyte (Absolute #) 1.82 (1.0-4.6); Lymphocytes % 39.7 % (24.0-44.0); Mean Cell Volume 91.7 fl (78-100); Mean Corpuscular Hemoglobin 28.2 pg (26-32); Mean Corpuscular Hgb Concent. 30.7 g/dl (32-36); Mean Platelet Volume 9.8 fl (7.5-11.0); Monocyte (Absolute #) 0.29 (0.0-1.3); Monocytes % 6.3 % (0.0-12.0); Neutrophil % 47.7 % (36.0-66.0); Platelet Count 244 K/mm3 (150-450); Red Blood Count 3.37 M/mm3 (4.1-5.4); White Blood Count 4.6 K/mm3 (4.0-10.5)
[2020-02-10 05:27] LABS: ALBUMIN 3.3 g/dL (3.5-5.0); ALKALINE PHOSPHATASE 89 U/L (38-126); AMYLASE 100 U/L (30-110); ANION GAP 10.5 MEQ/L (5-15); BLOOD UREA NITROGEN 10 mg/dL (7-17); CHLORIDE 102 mmol/L (98-107); Calcium 8.2 mg/dL (8.4-10.2); Carbon Dioxide 30 mmol/L (22-30); Creatinine 1 0.86 mg/dL (0.52-1.04); Glucose 87 mg/dL (74-106); LIPASE 241 U/L (23-300); Potassium 3.8 mmol/L (3.5-5.1); SGOT/AST 24 U/L (14-36); SGPT/ALT 28 U/L (0-35); SODIUM 139 mmol/L (137-145); Total Protein 6.1 g/dL (6.3-8.2)
[2020-02-10] MEDS: Phenergan 25 MG INJ IV PRN ×2 (06:30→13:24)
--- NOTE | 2020-02-10 08:24 | PCM.NOTE ---
Date and Time: 02/10/20818 Subjective Assessment: patient feeling better, has some nausea Objective Exam General Appearance: no apparent distress, obese Respiratory Exam: normal breath sounds, lungs clear, No respiratory distress Cardiovascular Exam: regular rate/rhythm, normal heart sounds Gastrointestinal/Abdomen Exam: soft, No tenderness, No mass Extremity Exam: normal inspection, normal range of motion OBJECTIVE DATA Vital Signs: Vital Signs - 24 hr Temp Pulse Resp BP Pulse Ox 02/10/20 07:27 98.5 F 71 16 115/58 98 02/10/20 06:39 95 02/10/20 04:00 95 02/10/20 03:42 98.0 F 68 17 105/56 96 02/10/20 00:00 95 02/09/20 23:44 98.0 F 76 17 98/56 96 02/09/20 20:00 96 02/09/20 19:56 98.3 F 74 16 105/59 96 02/09/20 18:48 93 L 02/09/20 18:33 96 02/09/20 18:09 96 02/09/20 16:00 98.3 F 79 14 97/57 95 02/09/20 12:00 98.3 F 73 12 91/50 96 Pain Assessment - Last Documented Pain Intensity 5 Pain Scale Used 0-10 Pain Scale Intake and Output: Intake & Output 02/07/20 02/08/20 02/09/20 02/10/20 11:59 11:59 11:59 11:59 Intake Total 4047 4154 Output Total 2075 2550 Balance 1972 1604 Weight 64.3 kg Lab Results: Lab Results-Last 24 Hours 02/09/20 02/10/20 02/10/20 Range/Units 05:00 04:40 04:40 WBC 5.4 4.6 (4.0-10.5) K/mm3 RBC 3.46 L 3.37 L (4.1-5.4) M/mm3 Hgb 9.8 L D 9.5 L (12.0-16.0) gm/dl Hct 31.4 L 30.9 L (35-47) % MCV 90.8 91.7 (78-100) fl MCH 28.3 28.2 (26-32) pg MCHC 31.2 L 30.7 L (32-36) g/dl RDW 15.2 H 15.0 H (11.5-14.0) % Plt Count 236 244 (150-450) K/mm3 MPV 10.0 9.8 (7.5-11.0) fl Gran % 47.7 (36.0-66.0) % Eos # (Auto) 0.25 (0-0.5) Absolute Lymphs (auto) 1.82 (1.0-4.6) Absolute Monos (auto) 0.29 (0.0-1.3) Lymphocytes % 39.7 (24.0-44.0) % Monocytes % 6.3 (0.0-12.0) % Eosinophils % 5.4 H (0.00-5.0) % Basophils % 0.9 (0.0-0.4) % Absolute Granulocytes 2.19 (1.4-6.9) Basophils # 0.04 (0-0.4) Sodium 139 (137-145) mmol/L Potassium 3.8 (3.5-5.1) mmol/L Chloride 102 (98-107) mmol/L Carbon Dioxide 30 (22-30) mmol/L Anion Gap 10.5 (5-15) MEQ/L BUN 10 (7-17) mg/dL Creatinine 0.86 (0.52-1.04) mg/dL Estimated GFR > 60.0 ML/MIN Glucose 87 (74-106) mg/dL Calcium 8.2 L (8.4-10.2) mg/dL Total Bilirubin 0.30 (0.2-1.3) mg/dL AST 24 (14-36) U/L ALT 28 (0-35) U/L Alkaline Phosphatase 89 (38-126) U/L Serum Total Protein 6.1 L (6.3-8.2) g/dL Albumin 3.3 L (3.5-5.0) g/dL Amylase 100 (30-110) U/L Lipase 241 (23-300) U/L Assessment/Plan (1) Acute on chronic pancreatitis Current Visit: No Status: Acute Assessment & Plan: improved, doing much better at this time. will feed bland diet, perhaps discharge later today if enzymes remain normal Code(s): K85.90 - ACUTE PANCREATITIS WITHOUT NECROSIS OR INFECTION, UNSP; K86.1 - OTHER CHRONIC PANCREATITIS (2) Anemia Current Visit: Yes Status: Acute Code(s): D64.9 - ANEMIA, UNSPECIFIED (3) Abdominal pain Current Visit: No Status: Acute Onset Date: ~07/17/18 Qualifiers: Code(s): R10.9 - UNSPECIFIED ABDOMINAL PAIN
[2020-02-10] MEDS: BUSPAR 5 MG PO SCH (08:58)
[2020-02-10] MEDS: Zofran 4 MG/2 ML VIAL IV PRN (08:58)
[2020-02-10] MEDS: LYRICA 100MG PO SCH (08:58)
[2020-02-10 11:35] VITALS: BP 103/55; PULSE 79
[2020-02-10] MEDS ORDERED: Levofloxacin 500 MG Tablet PO SCH (12:00)
[2020-02-10 12:01] VITALS: O2SAT 95
[2020-02-10 14:11] LABS: AMYLASE 115 U/L (30-110); LIPASE 224 U/L (23-300)
--- NOTE | 2020-02-10 15:30 | PCM.DS ---
Discharge Summary Date of Admission: 02/09/20 09:28 Admitting Physician: JOSE ZAMORANO Primary Care Provider: JOSE ZAMORANO Allergies Allergies oxybutynin Allergy (Severe, Verified 01/04/20 08:10) Swelling pharyngeal swelling oxycodone [From Percocet] Allergy (Intermediate, Verified 01/04/20 08:10) Hives Pt. stated " Immediatly after taking it I felt like I was coming out of my skin." ampicillin Allergy (Mild, Verified 01/04/20 08:10) Hives hives erythromycin base [Erythromycin Base] Allergy (Mild, Verified 01/04/20 08:10) Hives Hives duloxetine HCl [From Cymbalta] Allergy (Unknown, Verified 01/04/20 08:10) Tightness of Throat nystatin Adverse Reaction (Verified 01/04/20 08:10) swellling swelling in lips. Hospital Summary - Hospital Course Hospital Course: patient admitted with vomiting and abdominal pain, acute on chronic pancreatitis. improved with hydration and gutrest, tolerating po now and doing well. - Vitals & Intake/Output Vital Signs: Vital Signs Temperature 98.5 F 02/10/20 11:34 Pulse Rate 79 02/10/20 11:34 Respiratory Rate 16 02/10/20 11:34 Blood Pressure 103/55 02/10/20 11:34 O2 Sat by Pulse Oximetry 95 02/10/20 14:56 Intake & Output: Intake & Output 02/08/20 02/09/20 02/10/20 02/11/20 11:59 11:59 11:59 11:59 Intake Total 4047 4514 840 Output Total 9886 3050 Balance 1972 1464 840 Weight 64.3 kg - Lab Result Diagrams: 02/10/20 04:40 02/10/20 04:40 Lab Results-Last 24 Hrs: Lab Results-Last 24 Hours 02/10/20 02/10/20 02/10/20 Range/Units 04:40 04:40 14:03 WBC 4.6 (4.0-10.5) K/mm3 RBC 3.37 L (4.1-5.4) M/mm3 Hgb 9.5 L (12.0-16.0) gm/dl Hct 30.9 L (35-47) % MCV 91.7 (78-100) fl MCH 28.2 (26-32) pg MCHC 30.7 L (32-36) g/dl RDW 15.0 H (11.5-14.0) % Plt Count 244 (150-450) K/mm3 MPV 9.8 (7.5-11.0) fl Gran % 47.7 (36.0-66.0) % Eos # (Auto) 0.25 (0-0.5) Absolute Lymphs (auto) 1.82 (1.0-4.6) Absolute Monos (auto) 0.29 (0.0-1.3) Lymphocytes % 39.7 (24.0-44.0) % Monocytes % 6.3 (0.0-12.0) % Eosinophils % 5.4 H (0.00-5.0) % Basophils % 0.9 (0.0-0.4) % Absolute Granulocytes 2.19 (1.4-6.9) Basophils # 0.04 (0-0.4) Sodium 139 (137-145) mmol/L Potassium 3.8 (3.5-5.1) mmol/L Chloride 102 (98-107) mmol/L Carbon Dioxide 30 (22-30) mmol/L Anion Gap 10.5 (5-15) MEQ/L BUN 10 (7-17) mg/dL Creatinine 0.86 (0.52-1.04) mg/dL Estimated GFR > 60.0 ML/MIN Glucose 87 (74-106) mg/dL Calcium 8.2 L (8.4-10.2) mg/dL Total Bilirubin 0.30 (0.2-1.3) mg/dL AST 24 (14-36) U/L ALT 28 (0-35) U/L Alkaline Phosphatase 89 (38-126) U/L Serum Total Protein 6.1 L (6.3-8.2) g/dL Albumin 3.3 L (3.5-5.0) g/dL Amylase 100 115 H (30-110) U/L Lipase 241 224 (23-300) U/L Micro Results-Entire Visit: Microbiology 02/08/20 17:00 Urine Culture - Final Urine, Catheterized Enterococcus Faecalis Discharge Exam General Appearance: no apparent distress, alert Respiratory Exam: normal breath sounds, lungs clear, No respiratory distress Cardiovascular Exam: regular rate/rhythm, normal heart sounds Gastrointestinal/Abdomen Exam: soft, No tenderness, No mass Skin Exam: normal color, warm, dry Final Diagnosis/Problem List - Final Discharge Diagnosis/Problem (1) Acute on chronic pancreatitis Current Visit: No Status: Acute Code(s): K85.90 - ACUTE PANCREATITIS WITHOUT NECROSIS OR INFECTION, UNSP; K86.1 - OTHER CHRONIC PANCREATITIS (2) Anemia Current Visit: Yes Status: Acute Code(s): D64.9 - ANEMIA, UNSPECIFIED (3) Abdominal pain Current Visit: No Status: Acute Onset Date: ~07/17/18 Code(s): R10.9 - UNSPECIFIED ABDOMINAL PAIN - Discharge Disposition: Home, Self-Care Condition: Stable Prescriptions: New Levofloxacin [Levofloxacin 500 MG Tablet] 500 mg PO DAILY #7 tablet Continue Pregabalin [Lyrica] 100 mg PO BID Heparin Flush 500 units/5 ml [Heparin Lock Flush 100 Units/ml 5ml Syringe] 500 units PORT FLUSH PRN PRN disp.syrin PRN Reason: Iv Port Flush Buspirone HCl 5 mg [Buspar 5 mg] 15 mg PO TID Sertraline HCl [Zoloft] 100 mg PO HS Hydrocodone/APAP 10/325 mg [[place] 10/325 MG Tablet] 1 tab PO QID PRN PRN tablet PRN Reason: Pain ondansetron HCL [Ondansetron HCl] 4 mg PO Q4H PRN PRN #30 tablet PRN Reason: Nausea Instructions: Pancreatitis (DC) Follow up with: JOSE ZAMORANO [Primary Care Provider] - 02/18/20 12:45 pm Forms: Discharge Instructions
== END 2020-02-10 15:02 | disposition home or self-care (01) | DRG 439 ==
LOC: MED SURG 09:28 → OBSVTOIN 02-09 09:28
PROVIDERS: ADMIT Family Medicine; ATTEND Family Medicine
DX: K85.90 Acute pancreatitis without necrosis or infection, unspecified (principal); N39.0 Urinary tract infection, site not specified; K86.1 Other chronic pancreatitis; D64.9 Anemia, unspecified; R10.9 Unspecified abdominal pain; Z79.899 Other long term (current) drug therapy
CPT/HCPCS: 36415; 80053; 81001; 82150; 83690; 83735; 85025; 85027; 87077; 87086; 87186; 93268; 94762; G0378; J0696; J1200; J2270; J2405; J2550; A9270-GY

== ENCOUNTER 2020-03-07 12:26 | Observation (INO) | payer MEDICARE ==
[2020-03-07] MEDS ORDERED: Lactated Ringers 1,000 ML IV SCH (13:30)
[2020-03-07 13:57] LABS: Absolute Neutrophil Ct (ANC) 1.68 (1.4-6.9); BASOPHIL % 1.2 % (0.0-0.4); Basophil (Absolute #) 0.04 (0-0.4); Eosinophil % 3.9 % (0.00-5.0); Eosinophil (Absolute #) 0.13 (0-0.5); Hematocrit 33.9 % (35-47); Lymphocyte (Absolute #) 1.08 (1.0-4.6); Lymphocytes % 32.3 % (24.0-44.0); Mean Cell Volume 86.9 fl (78-100); Mean Corpuscular Hemoglobin 28.2 pg (26-32); Mean Corpuscular Hgb Concent. 32.4 g/dl (32-36); Mean Platelet Volume 9.8 fl (7.5-11.0); Monocyte (Absolute #) 0.41 (0.0-1.3); Monocytes % 12.3 % (0.0-12.0); Neutrophil % 50.3 % (36.0-66.0); Platelet Count 207 K/mm3 (150-450); White Blood Count 3.3 K/mm3 (4.0-10.5)
[2020-03-07] MEDS: Phenergan 25 MG INJ IV PRN ×2 (14:06→21:37)
[2020-03-07] MEDS: Morphine PCA 1 MG/ML 30 ML IV PRN (14:06)
[2020-03-07 14:14] LABS: MAGNESIUM 1.7 mg/dL (1.6-2.3)
[2020-03-07 14:41] LABS: Appearance SLIGHTLY CLOUDY (CLEAR); Bacteria MODERATE /HPF (NEGATIVE); Bilirubin NEGATIVE (NEGATIVE); Blood MODERATE Ery/ul (0-5); Glucose NEGATIVE (NEGATIVE); Ketones NEGATIVE (NEGATIVE); Leukocyte Esterase MODERATE (NEGATIVE); Nitrite POSITIVE (NEGATIVE); Protein,Urine Dip NEGATIVE (Negative); RBC 0-2 /HPF (0-2); Specific Gravity 1.006 (1.005-1.025); Urobilinogen NEGATIVE mg/dL (0-1)
--- NOTE | 2020-03-07 15:29 | XRAY ---
Indication: Pancreatitis. History: Disease. Comparison: December 20, 2019. KUB remains nonacute and nonobstructed again with cholecystectomy clips, right lower quadrant ostomy, and suprapubic catheter. Solid organs and osseous structures unremarkable.
[2020-03-07] MEDS ORDERED: MORPHINE SULFATE 10 MG/ML IV ONE (15:46)
[2020-03-07] MEDS ORDERED: PHARMACY DOSING REQUIRED: VANCOMYCIN IV STA (16:54)
[2020-03-07] MEDS: Zofran 4 MG/2 ML VIAL IV PRN (17:20)
[2020-03-07] MEDS: BUSPAR 5 MG PO SCH ×2 (17:20→21:29)
[2020-03-07 17:27] LABS: ALBUMIN 4.1 g/dL (3.5-5.0); ANION GAP 14.2 MEQ/L (5-15); BILIRUBIN,TOTAL 0.6 mg/dL (0.2-1.3); Calcium 8.9 mg/dL (8.4-10.2); Creatinine 1 1.05 mg/dL (0.52-1.04); Potassium 3.2 mmol/L (3.5-5.1); Total Protein 7.3 g/dL (6.3-8.2)
[2020-03-07] MEDS ORDERED: VANCOMYCIN 1 GRAM/200 ML BAG 1 GM/200 ML PIGGYBACK IV SCH (18:00)
[2020-03-07] MEDS: BENADRYL 25 MG CAPSULE PO PRN (19:50)
[2020-03-07] MEDS: Lactated Ringers 1,000 ML IV SCH (21:25)
[2020-03-07] MEDS: ZOLOFT 50 MG TABLET PO SCH (21:28)
[2020-03-07] MEDS: LYRICA 100MG PO SCH (21:28)
[2020-03-07] MEDS ORDERED: NON-FORMULARY ITEM (Sertraline Hcl [Zoloft] 100 MG) PO SCH (22:00)
[2020-03-08] MEDS: Lactated Ringers 1,000 ML IV SCH ×2 (03:52→14:28)
[2020-03-08] MEDS: Phenergan 25 MG INJ IV PRN ×3 (04:20→18:50)
[2020-03-08 04:57] LABS: BASOPHIL % 0.9 % (0.0-0.4); Basophil (Absolute #) 0.04 (0-0.4); Eosinophil % 4.5 % (0.00-5.0); Hematocrit 31.4 % (35-47); Hemoglobin 9.8 gm/dl (12.0-16.0); Lymphocytes % 35.9 % (24.0-44.0); Mean Cell Volume 89.7 fl (78-100); Mean Corpuscular Hgb Concent. 31.2 g/dl (32-36); Monocyte (Absolute #) 0.52 (0.0-1.3); Monocytes % 11.7 % (0.0-12.0); Platelet Count 202 K/mm3 (150-450); Red Cell Distribution Width 15.3 % (11.5-14.0); White Blood Count 4.5 K/mm3 (4.0-10.5)
[2020-03-08 05:16] LABS: ALBUMIN 3.5 g/dL (3.5-5.0); ALKALINE PHOSPHATASE 116 U/L (38-126); ANION GAP 11.1 MEQ/L (5-15); BLOOD UREA NITROGEN 6 mg/dL (7-17); CHLORIDE 99 mmol/L (98-107); Calcium 8.6 mg/dL (8.4-10.2); Carbon Dioxide 28 mmol/L (22-30); Creatinine 1 0.84 mg/dL (0.52-1.04); Glucose 109 mg/dL (74-106); Potassium 3.3 mmol/L (3.5-5.1); SGOT/AST 45 U/L (14-36); SGPT/ALT 45 U/L (0-35); SODIUM 135 mmol/L (137-145); Total Protein 6.1 g/dL (6.3-8.2)
[2020-03-08 05:27] LABS: MAGNESIUM 1.5 mg/dL (1.6-2.3)
[2020-03-08] MEDS: VANCOCIN 500 MG VIAL*** 500 MG in Sodium Chloride 100ML MINI-BAG PLUS 100 ML IV SCH ×3 (05:55→20:55)
[2020-03-08] MEDS: Morphine PCA 1 MG/ML 30 ML IV PRN ×2 (07:10→17:16)
[2020-03-08] MEDS: Zofran 4 MG/2 ML VIAL IV PRN ×2 (08:18→20:53)
[2020-03-08] MEDS: BENADRYL 25 MG CAPSULE PO PRN ×3 (08:18→18:54)
[2020-03-08] MEDS: LYRICA 100MG PO SCH ×2 (09:09→20:54)
[2020-03-08] MEDS: BUSPAR 5 MG PO SCH ×3 (09:09→20:00)
--- NOTE | 2020-03-08 09:17 | PCM.NOTE ---
Date and Time: 03/08/20913 Subjective Assessment: patient admitted with epigastric pain, nausea and vomiting with history of chronic pancreatitis. feeling better today, pain improved but not gone. tolerating clears and no vomiting overnight. lipase improved Objective Exam General Appearance: no apparent distress Neurologic Exam: alert, oriented x 3 Respiratory Exam: normal breath sounds, lungs clear, No respiratory distress Cardiovascular Exam: regular rate/rhythm, normal heart sounds Gastrointestinal/Abdomen Exam: soft, tenderness (epigastrium), No distention, No guarding, No rebound Extremity Exam: normal inspection, normal range of motion OBJECTIVE DATA Vital Signs: Vital Signs - 24 hr Temp Pulse Resp BP Pulse Ox 03/08/20 07:59 98.2 F 68 17 108/57 95 03/08/20 07:42 95 03/08/20 07:10 94 L 03/08/20 06:06 96 03/08/20 04:00 98.6 F 84 18 90/54 96 03/08/20 02:06 96 03/07/20 23:28 98.4 F 86 18 115/77 97 03/07/20 20:00 98.7 F 76 16 113/57 96 03/07/20 19:05 96 03/07/20 18:06 95 03/07/20 16:00 98.9 F 86 17 108/50 95 03/07/20 14:06 96 03/07/20 13:12 99.2 F 86 14 108/67 96 Pain Assessment - Last Documented Pain Intensity 5 Pain Scale Used 0-10 Pain Scale Intake and Output: Intake & Output 03/05/20 03/06/20 03/07/20 03/08/20 11:59 11:59 11:59 11:59 Intake Total 4490 Output Total 2225 Balance 2265 Weight 64.3 kg Lab Results: Lab Results-Last 24 Hours 03/07/20 03/07/20 03/07/20 Range/Units 13:35 13:35 13:45 WBC 3.3 L (4.0-10.5) K/mm3 RBC 3.90 L (4.1-5.4) M/mm3 Hgb 11.0 L (12.0-16.0) gm/dl Hct 33.9 L (35-47) % MCV 86.9 (78-100) fl MCH 28.2 (26-32) pg MCHC 32.4 (32-36) g/dl RDW 15.0 H (11.5-14.0) % Plt Count 207 (150-450) K/mm3 MPV 9.8 (7.5-11.0) fl Gran % 50.3 (36.0-66.0) % Eos # (Auto) 0.13 (0-0.5) Absolute Lymphs (auto) 1.08 (1.0-4.6) Absolute Monos (auto) 0.41 (0.0-1.3) Lymphocytes % 32.3 (24.0-44.0) % Monocytes % 12.3 H (0.0-12.0) % Eosinophils % 3.9 (0.00-5.0) % Basophils % 1.2 (0.0-0.4) % Absolute Granulocytes 1.68 (1.4-6.9) Basophils # 0.04 (0-0.4) Sodium (137-145) mmol/L Potassium (3.5-5.1) mmol/L Chloride (98-107) mmol/L Carbon Dioxide (22-30) mmol/L Anion Gap (5-15) MEQ/L BUN (7-17) mg/dL Creatinine (0.52-1.04) mg/dL Estimated GFR ML/MIN Glucose (74-106) mg/dL Lactic Acid 1.5 (0.4-2.0) Calcium (8.4-10.2) mg/dL Magnesium (1.6-2.3) mg/dL Total Bilirubin (0.2-1.3) mg/dL AST (14-36) U/L ALT (0-35) U/L Alkaline Phosphatase (38-126) U/L Serum Total Protein (6.3-8.2) g/dL Albumin (3.5-5.0) g/dL Amylase (30-110) U/L Lipase (23-300) U/L Urine Color YELLOW (YELLOW) Urine Appearance SLIGHTLY CLOUDY (CLEAR) Urine pH 6.0 (5-6) Ur Specific [place] 1.006 (1.005-1.025) Urine Protein NEGATIVE (Negative) Urine Ketones NEGATIVE (NEGATIVE) Urine Blood MODERATE (0-5) Gregg/ul Urine Nitrite POSITIVE (NEGATIVE) Urine Bilirubin NEGATIVE (NEGATIVE) Urine Urobilinogen NEGATIVE (0-1) mg/dL Ur Leukocyte Esterase MODERATE (NEGATIVE) Urine WBC (Auto) 3-5 (0-5) /HPF Urine RBC (Auto) 0-2 (0-2) /HPF U Epithel Cells (Auto) NONE (FEW) /HPF Urine Bacteria (Auto) MODERATE (NEGATIVE) /HPF Urine Culture Reflexed YES (NO) Urine Glucose NEGATIVE (NEGATIVE) mg/dL 03/07/20 03/07/20 03/08/20 Range/Units 13:45 16:45 04:47 WBC 4.5 (4.0-10.5) K/mm3 RBC 3.50 L (4.1-5.4) M/mm3 Hgb 9.8 L (12.0-16.0) gm/dl Hct 31.4 L (35-47) % MCV 89.7 (78-100) fl MCH 28.0 (26-32) pg MCHC 31.2 L (32-36) g/dl RDW 15.3 H (11.5-14.0) % Plt Count 202 (150-450) K/mm3 MPV 10.0 (7.5-11.0) fl Gran % 47.0 (36.0-66.0) % Eos # (Auto) 0.20 (0-0.5) Absolute Lymphs (auto) 1.60 (1.0-4.6) Absolute Monos (auto) 0.52 (0.0-1.3) Lymphocytes % 35.9 (24.0-44.0) % Monocytes % 11.7 (0.0-12.0) % Eosinophils % 4.5 (0.00-5.0) % Basophils % 0.9 (0.0-0.4) % Absolute Granulocytes 2.10 (1.4-6.9) Basophils # 0.04 (0-0.4) Sodium 133 L (137-145) mmol/L Potassium 3.2 L (3.5-5.1) mmol/L Chloride 96 L (98-107) mmol/L Carbon Dioxide 26 (22-30) mmol/L Anion Gap 14.2 (5-15) MEQ/L BUN 10 (7-17) mg/dL Creatinine 1.05 H (0.52-1.04) mg/dL Estimated GFR 58.0 ML/MIN Glucose 96 (74-106) mg/dL Lactic Acid (0.4-2.0) Calcium 8.9 (8.4-10.2) mg/dL Magnesium 1.7 (1.6-2.3) mg/dL Total Bilirubin 0.60 (0.2-1.3) mg/dL AST 52 H (14-36) U/L ALT 48 H (0-35) U/L Alkaline Phosphatase 146 H (38-126) U/L Serum Total Protein 7.3 (6.3-8.2) g/dL Albumin 4.1 (3.5-5.0) g/dL Amylase 131 H (30-110) U/L Lipase 460 H (23-300) U/L Urine Color (YELLOW) Urine Appearance (CLEAR) Urine pH (5-6) Ur Specific [place] (1.005-1.025) Urine Protein (Negative) Urine Ketones (NEGATIVE) Urine Blood (0-5) Gregg/ul Urine Nitrite (NEGATIVE) Urine Bilirubin (NEGATIVE) Urine Urobilinogen (0-1) mg/dL Ur Leukocyte Esterase (NEGATIVE) Urine WBC (Auto) (0-5) /HPF Urine RBC (Auto) (0-2) /HPF U Epithel Cells (Auto) (FEW) /HPF Urine Bacteria (Auto) (NEGATIVE) /HPF Urine Culture Reflexed (NO) Urine Glucose (NEGATIVE) mg/dL 03/08/20 03/08/20 Range/Units 04:47 04:47 WBC (4.0-10.5) K/mm3 RBC (4.1-5.4) M/mm3 Hgb (12.0-16.0) gm/dl Hct (35-47) % MCV (78-100) fl MCH (26-32) pg MCHC (32-36) g/dl RDW (11.5-14.0) % Plt Count (150-450) K/mm3 MPV (7.5-11.0) fl Gran % (36.0-66.0) % Eos # (Auto) (0-0.5) Absolute Lymphs (auto) (1.0-4.6) Absolute Monos (auto) (0.0-1.3) Lymphocytes % (24.0-44.0) % Monocytes % (0.0-12.0) % Eosinophils % (0.00-5.0) % Basophils % (0.0-0.4) % Absolute Granulocytes (1.4-6.9) Basophils # (0-0.4) Sodium 135 L (137-145) mmol/L Potassium 3.3 L (3.5-5.1) mmol/L Chloride 99 (98-107) mmol/L Carbon Dioxide 28 (22-30) mmol/L Anion Gap 11.1 (5-15) MEQ/L BUN 6 L (7-17) mg/dL Creatinine 0.84 (0.52-1.04) mg/dL Estimated GFR > 60.0 ML/MIN Glucose 109 H (74-106) mg/dL Lactic Acid (0.4-2.0) Calcium 8.6 (8.4-10.2) mg/dL Magnesium 1.5 L (1.6-2.3) mg/dL Total Bilirubin 0.30 (0.2-1.3) mg/dL AST 45 H (14-36) U/L ALT 45 H (0-35) U/L Alkaline Phosphatase 116 (38-126) U/L Serum Total Protein 6.1 L (6.3-8.2) g/dL Albumin 3.5 (3.5-5.0) g/dL Amylase (30-110) U/L Lipase 295 (23-300) U/L Urine Color (YELLOW) Urine Appearance (CLEAR) Urine pH (5-6) Ur Specific [place] (1.005-1.025) Urine Protein (Negative) Urine Ketones (NEGATIVE) Urine Blood (0-5) Gregg/ul Urine Nitrite (NEGATIVE) Urine Bilirubin (NEGATIVE) Urine Urobilinogen (0-1) mg/dL Ur Leukocyte Esterase (NEGATIVE) Urine WBC (Auto) (0-5) /HPF Urine RBC (Auto) (0-2) /HPF U Epithel Cells (Auto) (FEW) /HPF Urine Bacteria (Auto) (NEGATIVE) /HPF Urine Culture Reflexed (NO) Urine Glucose (NEGATIVE) mg/dL Radiology Exams: Radiology Procedures Category Date Time Status KUB Routine Exams 03/07/20 13:45 Completed Assessment/Plan (1) Acute on chronic pancreatitis Current Visit: No Status: Acute Assessment & Plan: advance to full liquid, follow enzymes Code(s): K85.90 - ACUTE PANCREATITIS WITHOUT NECROSIS OR INFECTION, UNSP; K86.1 - OTHER CHRONIC PANCREATITIS (2) Abdominal pain Current Visit: No Status: Acute Onset Date: ~07/17/18 Qualifiers: Code(s): R10.9 - UNSPECIFIED ABDOMINAL PAIN (3) Crohn's disease Current Visit: No Status: Chronic Qualifiers: Code(s): K50.90 - CROHN'S DISEASE, UNSPECIFIED, WITHOUT COMPLICATIONS (4) UTI (urinary tract infection) Current Visit: No Status: Resolved Onset Date: ~07/17/18 Qualifiers: Assessment & Plan: on vanc, hx enterococcus/staph previously Code(s): N39.0 - URINARY TRACT INFECTION, SITE NOT SPECIFIED (5) Suprapubic catheter Current Visit: No Status: Chronic Code(s): Z93.59 - OTHER CYSTOSTOMY STATUS
[2020-03-08] MEDS: ZOLOFT 50 MG TABLET PO SCH (20:54)
[2020-03-09] MEDS: Phenergan 25 MG INJ IV PRN ×2 (00:47→07:35)
[2020-03-09] MEDS: Zofran 4 MG/2 ML VIAL IV PRN (04:16)
[2020-03-09] MEDS ORDERED: TROUGH DRUG LEVELS IJ ONE (05:30)
[2020-03-09 05:45] LABS: Absolute Neutrophil Ct (ANC) 1.76 (1.4-6.9); Basophil (Absolute #) 0.04 (0-0.4); Eosinophil % 6.1 % (0.00-5.0); Eosinophil (Absolute #) 0.25 (0-0.5); Hematocrit 30.9 % (35-47); Hemoglobin 9.5 gm/dl (12.0-16.0); Lymphocyte (Absolute #) 1.69 (1.0-4.6); Mean Corpuscular Hemoglobin 28.3 pg (26-32); Mean Corpuscular Hgb Concent. 30.7 g/dl (32-36); Mean Platelet Volume 10.1 fl (7.5-11.0); Monocyte (Absolute #) 0.38 (0.0-1.3); Monocytes % 9.2 % (0.0-12.0); Neutrophil % 42.7 % (36.0-66.0); Platelet Count 217 K/mm3 (150-450); Red Blood Count 3.36 M/mm3 (4.1-5.4); Red Cell Distribution Width 15.6 % (11.5-14.0); White Blood Count 4.1 K/mm3 (4.0-10.5)
[2020-03-09 06:03] LABS: ALBUMIN 3.6 g/dL (3.5-5.0); ALKALINE PHOSPHATASE 104 U/L (38-126); BLOOD UREA NITROGEN 10 mg/dL (7-17); CHLORIDE 102 mmol/L (98-107); Calcium 8.6 mg/dL (8.4-10.2); Carbon Dioxide 29 mmol/L (22-30); Creatinine 1 0.91 mg/dL (0.52-1.04); Glucose 90 mg/dL (74-106); LIPASE 262 U/L (23-300); MAGNESIUM 1.3 mg/dL (1.6-2.3); SGOT/AST 34 U/L (14-36); SGPT/ALT 38 U/L (0-35); SODIUM 138 mmol/L (137-145); Total Protein 6.4 g/dL (6.3-8.2)
[2020-03-09] MEDS: VANCOCIN 500 MG VIAL*** 500 MG in Sodium Chloride 100ML MINI-BAG PLUS 100 ML IV SCH (06:10)
[2020-03-09] MEDS: Morphine PCA 1 MG/ML 30 ML IV PRN (07:23)
[2020-03-09] MEDS ORDERED: Magnesium Sulfate 1 GM/2 ML VIAL IV ONE (08:45)
--- NOTE | 2020-03-09 08:47 | PCM.HP ---
History of Present Illness - Chief Complaint Chief Complaint: Pancreatits acute or chronic Date: 03/07/20 (Late entry for 03/07/20) History of Present Illness: is a 54 year old female pt of mine from [facility] with PMHx Crohn's disease (with colon resection and ileostomy), neurogenic bladder (with suprapubic catheter), chronic renal failure (on fluids every other day), chronic pancreatitis who came in for recurrent pancreatitis and UTI. She had a urine culture done outpatient that was resistant to Levaquin; she was on OP macrobid , but changed to IV vancomycin in hospital. Her lipase was >400. Pt denies fever. Has been vomiting. WIll be given IV fluids and CLD. [employer]ine [employer]. - Review of Systems Abdominal/Gastrointestinal: Abdominal Pain, Nausea, Vomiting All Other Systems: Reviewed and Negative Medications & Allergies Home Medications: Home Medication List Pregabalin [Lyrica] 100 mg PO BID 12/24/16 [History Confirmed 03/07/20] Heparin Flush 500 units/5 ml [Heparin Lock Flush 100 Units/ml 5ml Syringe] 500 units PORT FLUSH PRN PRN disp.syrin 08/10/17 [Rx Confirmed 03/07/20] Buspirone HCl 5 mg [Buspar 5 mg] 15 mg PO TID 01/09/18 [History Confirmed 03/07/20] Sertraline HCl [Zoloft] 100 mg PO HS 11/06/18 [History Confirmed 03/07/20] Hydrocodone/APAP 10/325 mg [[place] 10/325 MG Tablet] 1 tab PO QID PRN PRN tablet 07/25/19 [Rx Confirmed 03/07/20] ondansetron HCL [Ondansetron HCl] 4 mg PO Q4H PRN PRN #30 tablet 09/06/19 [Rx Confirmed 03/07/20] Levofloxacin [Levofloxacin 500 MG Tablet] 500 mg PO DAILY #7 tablet 04/23 [Rx Confirmed 03/07/20] Allergies/Adverse Reactions: Allergies Allergy/AdvReac Type Severity Reaction Status Date / Time oxybutynin Allergy Severe Swelling Verified 03/04/20 07:08 oxycodone [From Percocet] Allergy Intermediate Hives Verified 03/04/20 07:08 ampicillin Allergy Mild Hives Verified 03/04/20 07:08 erythromycin base Allergy Mild Hives Verified 03/04/20 07:08 [Erythromycin Base] duloxetine HCl Allergy Unknown Tightness Verified 03/04/20 07:08 [From Cymbalta] of Throat nystatin AdvReac swellling Verified 03/04/20 07:08 - Past Medical History Past Medical History: Yes Neurological History: Peripheral Neuropathy ENT History: No Pertinent History Cardiac History: No Pertinent History Respiratory History: No Pertinent History Endocrine Medical History: Adrenal Insufficiency, Other Musculoskelatal History: Osteoarthritis GI Medical History: Crohns Disease, Pancreatitis, Other History: Renal Disease, Other Pyscho-Social History: Anxiety, Depression Reproductive Disorders: Other Comment: Pt had surgery for adhesions in the gut and had complications. She has a colostomy and superpubic cather. Pt gets infusions with potassium and magnesium, chronic pancreatitis. - Female History Are you now?: No - Past Surgical History Past Surgical History: Yes (ileostomy, suprapubic catheter) Neuro Surgical History: No Pertinent History Cardiac History: No Pertinent History Respiratory Surgery: No Pertinent History GI Surgical History: Bowel Surgery, Cholecystectomy Genitourinary Surgical Hx: Other Musculskeletal Surgical Hx: No Pertinent History Female Surgical History: Hysterectomy Other Surgical History: has 120 cm of small bowel, urostomy following compications after surgery to remove adhesions. PROCEDURE 09/07/19 TO DEADEN NERVES OF PANCREASE - Social History Smoking Status: Current every day smoker How long have you smoked: years Exposure to second hand smoke: Yes Alcohol: None Drug Use: none - Physical Exam Vital Signs: Vital Signs - 24 hr Temp Pulse Resp BP Pulse Ox 03/09/20 07:23 97 03/09/20 07:15 98.6 F 70 16 111/58 96 03/09/20 06:39 95 03/09/20 06:30 96 03/09/20 04:00 97.7 F 73 15 103/56 96 03/09/20 01:16 96 03/08/20 23:44 98.0 F 74 14 97/60 95 03/08/20 21:16 97 03/08/20 21:14 97 03/08/20 20:00 98.6 F 74 16 109/58 97 08/05/20 17:16 99 03/08/20 16:00 99 03/08/20 15:20 98.2 F 74 18 100/61 99 03/08/20 12:00 98.5 F 67 18 113/56 96 03/08/20 11:56 95 General Appearance: moderate distress (in darkened room, in bed), alert Neurologic Exam: oriented x 3, cooperative Eye Exam: eyes nml inspection Ears, Nose, Throat Exam: moist mucous membranes Neck Exam: normal inspection, non-tender, No lymphadenopathy Respiratory Exam: normal breath sounds, lungs clear, No crackles/rales, No rhonchi, No wheezing Cardiovascular Exam: regular rate/rhythm, normal heart sounds, No murmur Gastrointestinal/Abdomen Exam: soft, normal bowel sounds, tenderness (Epigastric, LUQ, LLQ) Extremity Exam: normal inspection Skin Exam: normal color, warm, dry, No rash Results - Labs Lab/Micro Results: Lab Results-Last 24 Hours 03/09/20 03/09/20 03/09/20 Range/Units 05:40 05:40 05:40 WBC 4.1 (4.0-10.5) K/mm3 RBC 3.36 L (4.1-5.4) M/mm3 Hgb 9.5 L (12.0-16.0) gm/dl Hct 30.9 L (35-47) % MCV 92.0 (78-100) fl MCH 28.3 (26-32) pg MCHC 30.7 L (32-36) g/dl RDW 15.6 H (11.5-14.0) % Plt Count 217 (150-450) K/mm3 MPV 10.1 (7.5-11.0) fl Gran % 42.7 (36.0-66.0) % Eos # (Auto) 0.25 (0-0.5) Absolute Lymphs (auto) 1.69 (1.0-4.6) Absolute Monos (auto) 0.38 (0.0-1.3) Lymphocytes % 41.0 (24.0-44.0) % Monocytes % 9.2 (0.0-12.0) % Eosinophils % 6.1 H (0.00-5.0) % Basophils % 1.0 (0.0-0.4) % Absolute Granulocytes 1.76 (1.4-6.9) Basophils # 0.04 (0-0.4) Sodium 138 (137-145) mmol/L Potassium 4.0 D (3.5-5.1) mmol/L Chloride 102 (98-107) mmol/L Carbon Dioxide 29 (22-30) mmol/L Anion Gap 11.0 (5-15) MEQ/L BUN 10 (7-17) mg/dL Creatinine 0.91 (0.52-1.04) mg/dL Estimated GFR > 60.0 ML/MIN Glucose 90 (74-106) mg/dL Calcium 8.6 (8.4-10.2) mg/dL Magnesium 1.3 L (1.6-2.3) mg/dL Total Bilirubin 0.40 (0.2-1.3) mg/dL AST 34 (14-36) U/L ALT 38 H (0-35) U/L Alkaline Phosphatase 104 (38-126) U/L Serum Total Protein 6.4 (6.3-8.2) g/dL Albumin 3.6 (3.5-5.0) g/dL Lipase 262 (23-300) U/L Vancomycin Trough 12.29 (10-20) ug/mL Microbiology 03/07/20 Unknown Urine Culture - Final Suprapubic Cath Klebsiella Oxytoca Staphylococcus Epidermidis 03/07/20 13:35 Urine Culture - Preliminary Urine, Void GRAM NEGATIVE ID AND SENSITIVITY PENDING - Radiology Impressions Radiology Exams & Impressions: Radiology Procedures Category Date Time Status KUB Routine Exams 03/07/20 13:45 Completed Assessment/Plan (1) Acute on chronic pancreatitis Current Visit: No Status: Acute Assessment & Plan: IV fluids, IV pain meds, CLD, await improvement. Likely several days. Code(s): K85.90 - ACUTE PANCREATITIS WITHOUT NECROSIS OR INFECTION, UNSP; K86.1 - OTHER CHRONIC PANCREATITIS (2) Short bowel syndrome Current Visit: No Status: Chronic Assessment & Plan: Replete electrolytes IV as needed. Code(s): K91.2 - POSTSURGICAL MALABSORPTION, NOT ELSEWHERE CLASSIFIED (3) UTI (urinary tract infection) Current Visit: No Status: Resolved Onset Date: ~07/17/18 Qualifiers: Urinary tract infection type: acute cystitis Hematuria presence: without hematuria Qualified Code(s): N30.00 - Acute cystitis without hematuria Assessment & Plan: New UCx pending. Code(s): N39.0 - URINARY TRACT INFECTION, SITE NOT SPECIFIED
--- NOTE | 2020-03-09 08:57 | PCM.DS ---
Discharge Summary Date of Admission: 03/07/20 12:40 Admitting Physician: JOSE ZAMORANO Primary Care Provider: JOSE ZAMORANO Allergies Allergies oxybutynin Allergy (Severe, Verified 03/04/20 07:08) Swelling pharyngeal swelling oxycodone [From Percocet] Allergy (Intermediate, Verified 03/04/20 07:08) Hives Pt. stated " Immediatly after taking it I felt like I was coming out of my skin." ampicillin Allergy (Mild, Verified 03/04/20 07:08) Hives hives erythromycin base [Erythromycin Base] Allergy (Mild, Verified 03/04/20 07:08) Hives Hives duloxetine HCl [From Cymbalta] Allergy (Unknown, Verified 03/04/20 07:08) Tightness of Throat nystatin Adverse Reaction (Verified 03/04/20 07:08) swellling swelling in lips. Hospital Summary - Hospital Course Hospital Course: Pt is 54 yo female pt of mine with hx Crohn's disease (with bowel resection and ileostomy, short gut syndrome), neurogenic bladder (with suprapubic catheter), chronic renal failure, chronic pancreatitis who was admitted directly with pancreatitis flare and UTI. Was started initially on IV vancomycin; today's culture result shows an additional microbe so will add IV rocephin. Will discharge to home today and have her go to outpatient for IV vanc BID (per pharmacy) and IV rocephin daily through 03/15/20. Pain improved, 5/10 this morning. Mg 1.3 this morning; giving 3 g IV mag before discharge. - Vitals & Intake/Output Vital Signs: Vital Signs Temperature 98.6 F 03/09/20 07:15 Pulse Rate 70 03/09/20 07:15 Respiratory Rate 16 03/09/20 07:15 Blood Pressure 111/58 03/09/20 07:15 O2 Sat by Pulse Oximetry 97 03/09/20 07:23 Intake & Output: Intake & Output 03/06/20 03/07/20 03/08/20 03/09/20 11:59 11:59 11:59 11:59 Intake Total 4490 3257 Output Total 2225 4150 Balance 2265 -893 Weight 64.3 kg - Lab Result Diagrams: 03/09/20 05:40 03/09/20 05:40 Lab Results-Last 24 Hrs: Lab Results-Last 24 Hours 03/09/20 03/09/20 03/09/20 Range/Units 05:40 05:40 05:40 WBC 4.1 (4.0-10.5) K/mm3 RBC 3.36 L (4.1-5.4) M/mm3 Hgb 9.5 L (12.0-16.0) gm/dl Hct 30.9 L (35-47) % MCV 92.0 (78-100) fl MCH 28.3 (26-32) pg MCHC 30.7 L (32-36) g/dl RDW 15.6 H (11.5-14.0) % Plt Count 217 (150-450) K/mm3 MPV 10.1 (7.5-11.0) fl Gran % 42.7 (36.0-66.0) % Eos # (Auto) 0.25 (0-0.5) Absolute Lymphs (auto) 1.69 (1.0-4.6) Absolute Monos (auto) 0.38 (0.0-1.3) Lymphocytes % 41.0 (24.0-44.0) % Monocytes % 9.2 (0.0-12.0) % Eosinophils % 6.1 H (0.00-5.0) % Basophils % 1.0 (0.0-0.4) % Absolute Granulocytes 1.76 (1.4-6.9) Basophils # 0.04 (0-0.4) Sodium 138 (137-145) mmol/L Potassium 4.0 D (3.5-5.1) mmol/L Chloride 102 (98-107) mmol/L Carbon Dioxide 29 (22-30) mmol/L Anion Gap 11.0 (5-15) MEQ/L BUN 10 (7-17) mg/dL Creatinine 0.91 (0.52-1.04) mg/dL Estimated GFR > 60.0 ML/MIN Glucose 90 (74-106) mg/dL Calcium 8.6 (8.4-10.2) mg/dL Magnesium 1.3 L (1.6-2.3) mg/dL Total Bilirubin 0.40 (0.2-1.3) mg/dL AST 34 (14-36) U/L ALT 38 H (0-35) U/L Alkaline Phosphatase 104 (38-126) U/L Serum Total Protein 6.4 (6.3-8.2) g/dL Albumin 3.6 (3.5-5.0) g/dL Lipase 262 (23-300) U/L Vancomycin Trough 12.29 (10-20) ug/mL Micro Results-Entire Visit: Microbiology 03/07/20 Unknown Urine Culture - Final Suprapubic Cath Klebsiella Oxytoca Staphylococcus Epidermidis 03/07/20 13:35 Urine Culture - Preliminary Urine, Void GRAM NEGATIVE ID AND SENSITIVITY PENDING - Radiology Exams Ordered Rad Exams-Entire Visit: Radiology Procedures Category Date Time Status KUB Routine Exams 03/07/20 13:45 Completed Discharge Exam General Appearance: no apparent distress, alert Neurologic Exam: oriented x 3, cooperative Eye Exam: eyes nml inspection Ears, Nose, Throat Exam: moist mucous membranes Neck Exam: normal inspection Respiratory Exam: normal breath sounds, lungs clear, No crackles/rales, No rhonchi, No wheezing Cardiovascular Exam: regular rate/rhythm, normal heart sounds, No murmur Gastrointestinal/Abdomen Exam: soft, normal bowel sounds, tenderness (epigastrum, LUQ), No distention Extremity Exam: normal inspection Skin Exam: normal color, warm, dry, No rash Final Diagnosis/Problem List - Final Discharge Diagnosis/Problem (1) Acute on chronic pancreatitis Current Visit: No Status: Acute Assessment & Plan: much improved, d/c to home Code(s): K85.90 - ACUTE PANCREATITIS WITHOUT NECROSIS OR INFECTION, UNSP; K86.1 - OTHER CHRONIC PANCREATITIS (2) Short bowel syndrome Current Visit: No Status: Chronic Code(s): K91.2 - POSTSURGICAL MALABSORPTION, NOT ELSEWHERE CLASSIFIED (3) UTI (urinary tract infection) Current Visit: No Status: Resolved Onset Date: ~07/17/18 Assessment & Plan: IV vancomycin and rocephin Code(s): N39.0 - URINARY TRACT INFECTION, SITE NOT SPECIFIED - Discharge Disposition: Home, Self-Care Condition: Good Prescriptions: New Ceftriaxone 1 GM/50 ML PREMIX* [ROCEPHIN 1 Gm-D5w 50 ml Bag] 1 g IV DAILY #6 ivpb Continue Pregabalin [Lyrica] 100 mg PO BID Heparin Flush 500 units/5 ml [Heparin Lock Flush 100 Units/ml 5ml Syringe] 500 units PORT FLUSH PRN PRN disp.syrin PRN Reason: Iv Port Flush Buspirone HCl 5 mg [Buspar 5 mg] 15 mg PO TID Sertraline HCl [Zoloft] 100 mg PO HS Hydrocodone/APAP 10/325 mg [[place] 10/325 MG Tablet] 1 tab PO QID PRN PRN tablet PRN Reason: Pain ondansetron HCL [Ondansetron HCl] 4 mg PO Q4H PRN PRN #30 tablet PRN Reason: Nausea Discontinued Levofloxacin [Levofloxacin 500 MG Tablet] 500 mg PO DAILY #7 tablet Follow up with: JOSE ZAMORANO [Primary Care Provider] - 1 Week
[2020-03-09] MEDS: BUSPAR 5 MG PO SCH (09:02)
[2020-03-09] MEDS: LYRICA 100MG PO SCH (09:03)
[2020-03-09] MEDS ORDERED: SODIUM CHLORIDE 0.9% IV SCH (09:30)
[2020-03-09] MEDS ORDERED: MAGNESIUM SULFATE IV SCH (09:30)
[2020-03-09] MEDS ORDERED: ROCEPHIN 1 Gm-D5w 50 ml Bag** 1 G/50 ML IVPB IV SCH (10:00)
[2020-03-09 11:50] VITALS: BP 125/72; PULSE 77; O2SAT 98
== END 2020-03-09 11:38 | disposition home or self-care (01) ==
LOC: MED SURG 12:40
PROVIDERS: ADMIT Family Medicine; ATTEND Family Medicine
DX: K85.90 Acute pancreatitis without necrosis or infection, unspecified (principal); N39.0 Urinary tract infection, site not specified; N18.9 Chronic kidney disease, unspecified; K91.2 Postsurgical malabsorption, not elsewhere classified; K86.1 Other chronic pancreatitis; R10.9 Unspecified abdominal pain; R11.2 Nausea with vomiting, unspecified; Z93.59 Other cystostomy status; Z79.899 Other long term (current) drug therapy
CPT/HCPCS: 36415; 74018; 80053; 80202; 81001; 82150; 83605; 83690; 83735; 85025; 87077; 87086; 87186; 93268; 94762; G0378; J0696; J1642; J2270; J2405; J2550; J3370; J3475; A9270-GY